=== PATIENT | male | born 1945 | race Caucasian/White ===

== ENCOUNTER 2016-04-16 09:29 | Outpatient (RCR) | payer MEDICARE ==
--- OUTSIDE RECORDS SUMMARY | 2016-01-23 09:44 | XMS REPORT | Continuity of Care Document ---
Author Author [facility] Organization [facility] Address Unknown Phone Unavailable Care Team Providers Care Fitting Room Checker Name Role Phone Davis Caldera PCP [phone] Source Comments Some departments are not documenting in the electronic medical record. If you do not see the information that you expected, contact Release of Information in the Health Information Management department at [phone] for further assistance in locating additional records.[facility] Active Allergies and Adverse Reactions Allergen Noted Date Severity Reactions Comments Formaldehyde 04/24/2014 RASH Current Medications Prescription Sig. Disp. Refills Start End Date Status Date insulin pump -ASPART- by SubQ Pump route as Active Patients Own directed. Novolog SubQ Insulin Pump settings:Timin7698-5408 : 0.6 units/hr 3091-7947: 0.4 units/ds7188-3491: 0.95 units/mo2551-0909: 0.9 units/qg4570-1353: 0.75 units/ni1988-6073: 0.6 units/hr predniSONE (DELTASONE) 5 Take 1 Tab by mouth 30 Tab 2 01/05/20 Active mg tablet daily. 15 magnesium oxide (MAG-OX) Take 400 mg by mouth Active 400 mg tablet daily. docusate (COLACE) 100 mg Take 100 mg by mouth Active capsule twice daily. aspirin EC 81 mg tablet Take 81 mg by mouth Active daily. oxyCODONE/acetaminophen Take 1-2 Tabs by mouth 40 Tab 0 07/25/19 Active (PERCOCET; ENDOCET; every 4 hours as needed 16 ROXICET) 5/325 mg tablet for Pain Earliest Fill Date: 07/25/15 polyethylene glycol 3350 Take 17 g by mouth twice 238 g 3 07/25/19 Active (MIRALAX) 17 gram/dose daily. 16 powder LISINOPRIL PO Take by mouth daily. Active METOPROLOL SUCCINATE PO Take by mouth daily. Active CEFDINIR PO Take by mouth twice Active daily. 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 H/O peripheral stem cell transplant ([facility]) 01/05/2015 Overview: Date of Transplant: 12/24/14 Preparative Regimen: BEAC Reduced or fully ablative: Full Disease: NHL Disease Status at Transplant: [place] Cytogenetic/FISH at DIAGNOSIS: 45,X,-Y[7]/46,XY[12] CMV: NEG Cell Source: PSC, autologous Consents/Studies: 8322, blood, apheresis, auto, H&P Coordinator: KIARRA SALMON RN Pancytopenia due to chemotherapy ([facility]) 12/31/[address] ([facility]) 12/19/2014 T1DM (type 1 diabetes mellitus) ([facility]) 05/03/2014 Rheumatoid arthritis ([facility]) 05/03/2014 Resolved Problems Problem Noted Date Resolved Date Nystagmus 12/30/2014 01/08/2015 Constipation 12/30/2014 01/08/2015 Mucositis due to antineoplastic therapy 12/30/2014 01/08/2015 Nausea 12/30/2014 01/08/2015 Fluid retention in tissues 12/23/2014 01/08/2015 Chemotherapy-induced nausea and vomiting 12/23/2014 01/08/2015 Conditioning chemotherapy prior to peripheral blood stem cell transplant 01/06/2015 Hypomagnesemia 12/18/2014 01/08/2015 Insect bite of foot or toe of right foot 11/14/2014 01/08/2015 Most Recent Encounters Date Type Specialty Providers Description 12/19/2015 Telephone Oncology Dory Dolan BMT Follow-up - 1 year Immunizations Name Dates Previously Given Next Due Acthib Vaccine 11/04/2015, 09/12/2015, 07/11/2015 HEPATITIS B vaccine, 09/12/2015 unspecified (Historical) Hepatitis B Vaccine Adult 07/11/2015 3 Dose IM IPV 11/04/2015, 09/12/2015, 07/11/2015 Meningococcal Conjug 07/11/2015 Vaccine Pneumococcal 11/04/2015, 09/12/2015, 07/11/2015 Vaccine([facility]/immunocompromised adult) Tdap Vaccine 11/04/2015, 09/12/2015, 07/11/2015 Social History Tobacco Use Types Packs/Day Years Used Date Former Smoker Cigarettes 0.75 25 Quit: 04/27/1999 Smokeless Tobacco: Never Used Comments: smoked for 25 years Alcohol Use Drinks/Week oz/Week Comments Yes 2-3 drinks per day Last Filed Vital Signs Vital Sign Reading Time Taken Blood Pressure 100/73 08/02/2015 10:49 AM CDT Pulse 77 08/02/2015 10:49 AM CDT Temperature 36.9 C (98.4 F) 08/02/2015 10:49 AM CDT Respiratory Rate 15 08/02/2015 10:49 AM CDT Height 1.753 m (5' 9.02") 08/02/2015 10:49 AM CDT Weight 74.481 kg (164 lb 3.2 oz) 08/02/2015 10:49 AM CDT Body Mass Index 24.24 08/02/2015 10:49 AM CDT Oxygen Saturation 100% 08/02/2015 10:49 AM CDT Plan of Care Date Type Specialty Providers Description 02/03/2016 Appointment Oncology Suraj Hendrickson MD [address] [place] [address] [phone] (Fax) 02/03/2016 Appointment Oncology Suraj Hendrickson MD [address] [place] [address] [phone] (Fax) Health Maintenance Due Date Last Done Comments Physical (Comprehensive) 1952 Exam Dilated Eye Exam 1964 Foot Exam 1964 Microalbumin 1964 Shingles Vaccine 2006 Hba1c 11/04/2014 05/07/2014 Influenza Vaccine 12/05/2015 Prevnar/Pneumovax (#2) 07/10/2016 11/04/2015, 09/12/2015, 07/11/2015 Colorectal Cancer 06/12/2025 06/13/2015 Screening Tetanus Vaccine 11/03/2025 11/04/2015, 09/12/2015, 07/11/2015 Hepatitis C Screening Completed 04/29/2014 Pertussis Vaccine Completed 11/04/2015, 09/12/2015, 07/11/2015 Results from Last 3 Months Not on file
[2016-01-23 10:10] LABS: PEP REPORT SEE PATH REPORT
[2016-01-23 10:12] LABS: BASOPHILS # (AUTO) 0.2 10^3/uL (0.0-0.1); BASOPHILS % (AUTO) 4 % (0-10); EOSINOPHILS # (AUTO) 0.2 10^3/uL (0.0-0.3); EOSINOPHILS % (AUTO) 4 % (0-10); LYMPHOCYTES % (AUTO) 18 % (12-44); MEAN CORPUSCULAR HEMOGLOBIN 27 PG (25-34); MEAN CORPUSCULAR HGB CONC 33 G/DL (32-36); MEAN CORPUSCULAR VOLUME 83 FL (80-99); MEAN PLATELET VOLUME 9.6 FL (7.4-10.4); MONOCYTES # (AUTO) 0.8 X 10^3 (0.0-1.0); MONOCYTES % (AUTO) 15 % (0-12); NEUTROPHILS # (AUTO) 3.3 X 10^3 (1.8-7.8); NEUTROPHILS % (AUTO) 59 % (42-75); PLATELET COUNT 233 10^3/uL (130-400); RED BLOOD COUNT 4.53 10^6/uL (4.35-5.85); RED CELL DISTRIBUTION WIDTH 17.1 % (10.0-14.5); WHITE BLOOD COUNT 5.6 10^3/uL (4.3-11.0)
[2016-01-23 10:38] LABS: ALANINE AMINOTRANSFERASE 19 U/L (0-55); ALBUMIN 3.4 G/DL (3.2-4.5); ANION GAP 7 MMOL/L (5-14); ASPARTATE AMINO TRANSFERASE 20 U/L (5-34); BILIRUBIN,TOTAL 0.7 MG/DL (0.1-1.0); BLOOD UREA NITROGEN 19 MG/DL (7-18); BUN/CREATININE RATIO 25; CALCIUM 8.6 MG/DL (8.5-10.1); CARBON DIOXIDE 23 MMOL/L (21-32); CHLORIDE 105 MMOL/L (98-107); CREATININE SERUM 0.77 MG/DL (0.60-1.30); GFR ESTIMATED > 60; GLUCOSE 245 MG/DL (70-105); LACTATE DEHYDROGENASE 191 U/L (125-220); MAGNESIUM 1.7 MG/DL (1.8-2.4); POTASSIUM 4.1 MMOL/L (3.6-5.0); SODIUM 135 MMOL/L (135-145); TOTAL PROTEIN 5.7 G/DL (6.4-8.2)
[2016-01-24 02:05] LABS: IMMUNOGLOBULIN IGA 217 mg/dL (71-263); IMMUNOGLOBULIN IGG 890 mg/dL (672-1680); LIGHT CHAIN KAPPA SERUM QUANT 18.05 mg/L (3.30-19.40); LIGHT CHAIN LAMBDA SERUM QUANT 18.44 mg/L (5.71-26.30)
[2016-01-24 07:03] LABS: IMMUNOGLOBULIN IGM 141 mg/dL (47-209)
[2016-01-28 09:42] LABS: CLIN PATHOLOGY REPORT FOOTNOTE; SERUM PROTEIN ELEC DETAIL L-16-0013403
[2016-02-05 07:03] LABS: ANATOMIC PATH ADDENDUM REPORT FOOTNOTE
[2016-03-19 10:15] LABS: BASOPHILS # (AUTO) 0.2 10^3/uL (0.0-0.1); BASOPHILS % (AUTO) 4 % (0-10); EOSINOPHILS # (AUTO) 0.1 10^3/uL (0.0-0.3); EOSINOPHILS % (AUTO) 2 % (0-10); LYMPHOCYTES % (AUTO) 21 % (12-44); MEAN CORPUSCULAR HEMOGLOBIN 27 PG (25-34); MEAN CORPUSCULAR HGB CONC 32 G/DL (32-36); MEAN CORPUSCULAR VOLUME 83 FL (80-99); MEAN PLATELET VOLUME 9.7 FL (7.4-10.4); MONOCYTES # (AUTO) 0.7 X 10^3 (0.0-1.0); MONOCYTES % (AUTO) 15 % (0-12); NEUTROPHILS # (AUTO) 2.7 X 10^3 (1.8-7.8); NEUTROPHILS % (AUTO) 58 % (42-75); PLATELET COUNT 264 10^3/uL (130-400); RED BLOOD COUNT 4.45 10^6/uL (4.35-5.85); RED CELL DISTRIBUTION WIDTH 17.8 % (10.0-14.5); WHITE BLOOD COUNT 4.6 10^3/uL (4.3-11.0)
[2016-03-19 11:34] LABS: ALANINE AMINOTRANSFERASE 15 U/L (0-55); ALBUMIN 3.4 G/DL (3.2-4.5); ANION GAP 4 MMOL/L (5-14); ASPARTATE AMINO TRANSFERASE 22 U/L (5-34); BILIRUBIN,TOTAL 0.7 MG/DL (0.1-1.0); BLOOD UREA NITROGEN 15 MG/DL (7-18); BUN/CREATININE RATIO 18; CALCIUM 8.5 MG/DL (8.5-10.1); CARBON DIOXIDE 25 MMOL/L (21-32); CHLORIDE 108 MMOL/L (98-107); CREATININE SERUM 0.82 MG/DL (0.60-1.30); GFR ESTIMATED > 60; GLUCOSE 152 MG/DL (70-105); LACTATE DEHYDROGENASE 260 U/L (125-220); MAGNESIUM 1.6 MG/DL (1.8-2.4); POTASSIUM 4.2 MMOL/L (3.6-5.0); SODIUM 137 MMOL/L (135-145); TOTAL PROTEIN 5.4 G/DL (6.4-8.2)
[~2016-04-16 09:29] MED LIST: ASPI-624 PO; ASPI-892 PO; CIPR500T78 PO; CODE118S2 PO; DIPH25TA82 PO; FLC1T PO; FOLI0.8T PO; HYDR-3714 PO; IMIP50TA4 PO; INSASP10V IV; INSULIN PUMP; LENA5CAP PO; LEVO500T69 PO; LOSA100T7 PO; MAGIC1 PO; MELA1TAB9 PO; MORP15TA8 PO; MTX2.5T PO; NITR-65 PO; NOVALOG; OXYC-471 PO; POLY119P GT; PRED5TAB PO; PROC10TA23 PO; SIMV20TA3 PO; SIMVASTATIN; TAMS0.4C9 PO; TMSL.4C PO; flomax; melatonin
== END 2016-04-22 | disposition home or self-care (01) ==
LOC: ONC 09:29
PROVIDERS: ATTEND Internal Medicine Hematology & Oncology
DX: C85.80 Other specified types of non-Hodgkin lymphoma, unspecified site (principal); E11.9 Type 2 diabetes mellitus without complications; I10 Essential (primary) hypertension; E78.5 Hyperlipidemia, unspecified; Z93.3 Colostomy status; Z79.899 Other long term (current) drug therapy; Z96.41 Presence of insulin pump (external) (internal); Z95.2 Presence of prosthetic heart valve
CPT/HCPCS: 36591; 80053; 82232; 82784; 83615; 83735; 83883; 84155; 84165; 85025; 86334; 86430; 96523; 99213

== ENCOUNTER 2016-06-06 02:46 | Emergency (ER) | payer MEDICARE ==
[~2016-06-06] VITALS: Ht 177.8 cm; Wt 76.2 kg
--- OUTSIDE RECORDS SUMMARY | 2016-06-06 02:55 | XMS REPORT | Continuity of Care Document ---
Author Author [facility] Organization [facility] Address Unknown Phone Unavailable Care Team Providers Care Contact Person Name Role Phone Davis Caldera PCP [phone] Source Comments Some departments are not documenting in the electronic medical record. If you do not see the information that you expected, contact Release of Information in the Health Information Management department at [phone] for further assistance in locating additional records.[facility] Active Allergies and Adverse Reactions Allergen Noted Date Severity Reactions Comments Formaldehyde 04/24/2014 RASH Current Medications Prescription Sig. Disp. Refills Start End Date Status Date insulin pump -ASPART- by SubQ Pump route as Active Patients Own directed. Novolog SubQ Insulin Pump settings:Timin9426-4084 : 0.6 units/hr 9641-0712: 0.4 units/wt1961-9391: 0.95 units/at0837-8812: 0.9 units/mb6940-1445: 0.75 units/zu0910-5707: 0.6 units/hr predniSONE (DELTASONE) 5 Take 1 [...] (HCC) 01/08/2015 H/O peripheral stem cell transplant ([facility]) 01/05/2015 Overview: Date of Transplant: 12/24/14 Preparative Regimen: BEAC Reduced or fully ablative: Full Disease: NHL Disease Status at Transplant: [place] Cytogenetic/FISH at DIAGNOSIS: 45,X,-Y[7]/46,XY[12] CMV: NEG Cell Source: PSC, autologous Consents/Studies: 8322, blood, apheresis, auto, H&P Coordinator: KIARRA SALMON RN Pancytopenia due to chemotherapy ([facility]) 12/31/[address] ([facility]) 12/19/2014 T1DM (type 1 diabetes mellitus) ([facility]) 05/03/2014 Rheumatoid arthritis ([facility]) 05/03/2014 Resolved Problems Problem Noted Date [...]
[2016-06-06 03:27] LABS: BASOPHILS # (AUTO) 0.1 10^3/uL (0.0-0.1); BASOPHILS % (AUTO) 3 % (0-10); EOSINOPHILS # (AUTO) 0.4 10^3/uL (0.0-0.3); EOSINOPHILS % (AUTO) 9 % (0-10); LYMPHOCYTES # (AUTO) 1.3 X 10^3 (1.0-4.0); LYMPHOCYTES % (AUTO) 25 % (12-44); MEAN CORPUSCULAR HEMOGLOBIN 27 PG (25-34); MEAN CORPUSCULAR HGB CONC 33 G/DL (32-36); MEAN CORPUSCULAR VOLUME 83 FL (80-99); MONOCYTES # (AUTO) 0.8 X 10^3 (0.0-1.0); MONOCYTES % (AUTO) 17 % (0-12); NEUTROPHILS # (AUTO) 2.3 X 10^3 (1.8-7.8); NEUTROPHILS % (AUTO) 47 % (42-75); PLATELET COUNT 228 10^3/uL (130-400); RED BLOOD COUNT 4.46 10^6/uL (4.35-5.85); RED CELL DISTRIBUTION WIDTH 16.6 % (10.0-14.5)
[2016-06-06 03:39] LABS: ALANINE AMINOTRANSFERASE 14 U/L (0-55); ALBUMIN 3.4 G/DL (3.2-4.5); ANION GAP 11 MMOL/L (5-14); ASPARTATE AMINO TRANSFERASE 13 U/L (5-34); BILIRUBIN,TOTAL 0.9 MG/DL (0.1-1.0); BLOOD UREA NITROGEN 19 MG/DL (7-18); BUN/CREATININE RATIO 23; CALCIUM 8.5 MG/DL (8.5-10.1); CARBON DIOXIDE 23 MMOL/L (21-32); CHLORIDE 109 MMOL/L (98-107); CREATININE SERUM 0.84 MG/DL (0.60-1.30); GFR ESTIMATED > 60; GLUCOSE 99 MG/DL (70-105); POTASSIUM 3.6 MMOL/L (3.6-5.0); SODIUM 143 MMOL/L (135-145); TOTAL PROTEIN 5.7 G/DL (6.4-8.2)
--- NOTE | 2016-06-06 04:01 | ED General ---
General Chief Complaint: Glucose Problems Stated Complaint: LOW BLOOD SUGAR Nursing Triage Note: Per [facility] EMS patient arrival for hypoglycemia. Pt registered low by EMS and at home; gave glucagon IM and EMS has given D50. Patient had altered mental status that has improved. Nursing Sepsis Screen: No Definite Risk Source of Information: Patient, EMS, Family Exam Limitations: No Limitations History of Present Illness Time Seen by Provider: 03:15 Initial Comments Here by EMS with report of blood sugar that was low. reports that it was 38 and she called EMS after given 1 mg of glucagon IM. EMS arrived and found his blood sugar to be low (below 20). They did initiate IV and gave 1 amp of D50. I also stopped his insulin pump. Patient awoke and was irritated but had no complaints. He was transported for further evaluation. Patient reports that he believes his insulin pump was having problems last night and his blood sugar was in the 400s. He did get a pulse of 11 units of insulin and then another bolus of 7 units of insulin and he believes that his pump wasn't working right after the set up and due to the boluses, had a low blood sugar event. States that everything is better now and feels, that is palpable work and that he can manage his blood sugars. His typical hemoglobin A1c is in the low 6 range and usually manages his blood sugars very well. Timing/Duration: 1 Hour Severity: Moderate Associated Systoms: No Chest Pain, No Cough, No Fever/Chills, No Nausea/ Vomiting, No Shortness of Air, No Weakness Allergies and Home Medications Allergies Coded Allergies: formaldehyde (Verified Allergy, Unknown, 12/20/07) Home Medications Aspirin 81 Mg Tabec 81 MG PO HS (Reported) Diphenhydramine Hcl 25 Mg Tablet 50 MG PO HS PRN PRN SLEEP (Reported) TAKES 2 (25MG) TABLETS Hydrocodone Bit/Acetaminophen 1 Tab Tablet #30 1-2 TAB PO Q4-6HRS MAY TAKE 1 OR 2 TABS BY MOUTH EVERY 4-6 HRS NEEDED FOR MILD TO MODERATE PAIN. DO NOT TAKE THIS MEDICATION IF YOU ARE TAKING YOUR MORPHINE. Prescribed by: HECTOR KUMARI on 06/18/14 2263 Insulin Aspart 10 Unit/0.1 Ml Susp IV PER INSULIN PUMP (Reported) Lenalidomide 5 Mg Capsule 5 MG PO ONCE (Reported) Melatonin/Pyridoxine Hcl 1 Each Tablet 2 EACH PO HS (Reported) Morphine Sulfate 15 Mg Tablet #60 30 MG PO Q4H PRN PRN SEVERE PAIN Prescribed by: MONICA ROJAS on 04/21/14 1325 Nitrofurantoin/Nitrofuran Mac 100 Mg Capsule #30 1 EACH PO BID FOR INFECTION Prescribed by: OLIVIA ROMANO on 06/13/14 1337 Nystatin/Lidocaine/Diphenhyd Bottle 5 ML PO 6XDAILY (Reported) 5 ML MAGIC MOUTHWASH CONTAINS: NYSTATIN SUSPENSION, PREDNISOLONE, DIPHENHYDRAMINE, LIDOCAINE VISCOUS Oxycodone HCl/Acetaminophen 1 Each Tablet #20 1-2 EACH PO Q6H PRN PRN PAIN Prescribed by: GLORIA CALERO on 10/27/15 0518 Prednisone 5 Mg Tablet 5 MG PO DAILY (Reported) Prochlorperazine 10 Mg Tablet #100 10 MG PO QID PRN PRN NAUSEA/VOMITING Prescribed by: MONICA ROJAS on 04/21/14 1325 Promethazine HCl/Codeine 118 Ml Syrup #118 5 ML PO Q6H PRN PRN COUGH Prescribed by: GLORIA CALERO on 10/27/15 0518 Tamsulosin HCl 0.4 Mg Cap.er.24h 0.4 MG PO DAILY (Reported) Constitutional: see HPI EENTM: no symptoms reported Respiratory: no symptoms reported Cardiovascular: no symptoms reported Gastrointestinal: no symptoms reported Genitourinary: no symptoms reported Musculoskeletal: no symptoms reported Skin: no symptoms reported Psychiatric/Neurological: See HPI Past Uargyln-Rmmmvo-Qainyn Hx Patient Social History Alcohol Use: Denies Use Recreational Drug Use: No Smoking Status: Unknown if Ever Smoked Recent Foreign Travel: No Contact w/Someone Who Travel: No Recent Infectious Disease Expo: No Recent Hopitalizations: No Immunizations Up To Date Date of Pneumonia Vaccine: Aug 02, 2011 Date of Influenza Vaccine: Feb 03, 2014 Seasonal Allergies Seasonal Allergies: No Surgeries HX Surgeries: Yes (hernia, previous colostomy.) Surgeries: Abdominal, Bowel Surgery, Orthopedic, Penile Implant, Transurethral Resection, Vascular Surgery Respiratory Hx Respiratory Disorders: No Cardiovascular Hx Cardiac Disorders: Yes (leaky heart valve- 45%.) Cardiac Disorders: Heart Murmur, Hypertension Neurological Hx Neurological Disorders: No Neurological Disorders: Neuropathy Reproductive System Hx Reproductive Disorders: No Sexually Transmitted Disease: No HIV/AIDS: No Genitourinary Hx Genitourinary Disorders: No Genitourinary Disorders: Benign Prostatic Hyperpl, Prostate Problems Gastrointestinal Hx Gastrointestinal Disorders: No Gastrointestinal Disorders: Abdominal Hernia, Obstructive Bowel, Chronic Constipation Musculoskeletal Hx Musculoskeletal Disorders: Yes Musculoskeletal Disorders: Rheumatoid Arthritis Endocrine Hx Endocrine Disorders: Yes Endocrine Disorders: Diabetes, Insulin dep HEENT HX ENT Disorders: No Cancer Hx Cancer: Yes Cancer: Lymphoma Psychosocial Hx Psychiatric Problems: No Integumentary HX Skin/Integumentary Disorder: No Blood Transfusions Hx Blood Disorders: No Adverse Reaction to a Blood Tr: No Reviewed Nursing Assessment Reviewed/Agree w Nursing PMH: Yes Family Medical History Family Medial History: Congestive heart failure 19 MOTHER Family history: Diabetes mellitus 19 MOTHER Physical Exam Vital Signs Vital Sign - Last 12Hours 06/06/16 02:46 Temp 96.0 Pulse 64 Resp 16 B/P 132/88 Pulse Ox 99 O2 Delivery Room Air Capillary Refill : Less Than 3 Seconds General Appearance: No Apparent Distress WD/WN HEENT: PERRL/EOMI Pharynx Normal Neck: Non Tender Supple Respiratory: Lungs Clear Normal Breath Sounds Cardiovascular: Regular Rate, Rhythm No Murmur Gastrointestinal: Non Tender Soft Back: Normal Inspection No CVA Tenderness No Vertebral Tenderness Extremity: Non Tender No Calf Tenderness Neurologic/Psychiatric: Alert Oriented x3 Skin: Normal Color Warm/Dry Progress/Results/Core Measures Results/Orders Lab Results Laboratory Tests Test 06/06/16 03:05 06/06/16 03:10 Range/Units Alanine Aminotransferase (ALT/SGPT) 14 0-55 U/L Albumin 3.4 3.2-4.5 G/DL Alkaline Phosphatase 82 40-136 U/L Anion Gap 11 5-14 MMOL/L Aspartate Amino Transf (AST/SGOT) 13 5-34 U/L BUN/Creatinine Ratio 23 Basophils # (Auto) 0.1 0.0-0.1 10^3/uL Basophils (%) (Auto) 3 0-10 % Blood Urea Nitrogen 19 H 7-18 MG/DL Calcium Level 8.5 8.5-10.1 MG/DL Carbon Dioxide Level 23 21-32 MMOL/L Chloride Level 109 H 98-107 MMOL/L Creatinine 0.84 0.60-1.30 MG/DL Eosinophils # (Auto) 0.4 H 0.0-0.3 10^3/uL Eosinophils (%) (Auto) 9 0-10 % Estimat Glomerular Filtration Rate > 60 Glucose Level 99 70-105 MG/DL Hematocrit 37 L 40-54 % Hemoglobin 12.1 L 13.3-17.7 G/DL Lymphocytes # (Auto) 1.3 1.0-4.0 X 10^3 Lymphocytes (%) (Auto) 25 12-44 % Mean Corpuscular Hemoglobin 27 25-34 PG Mean Corpuscular Hemoglobin Concent 33 32-36 G/DL Mean Corpuscular Volume 83 80-99 FL Mean Platelet Volume 10.0 7.4-10.4 FL Monocytes # (Auto) 0.8 0.0-1.0 X 10^3 Monocytes (%) (Auto) 17 H 0-12 % Neutrophils # (Auto) 2.3 1.8-7.8 X 10^3 Neutrophils (%) (Auto) 47 42-75 % Platelet Count 228 130-400 10^3/uL Potassium Level 3.6 3.6-5.0 MMOL/L Red Blood Count 4.46 4.35-5.85 10^6/uL Red Cell Distribution Width 16.6 H 10.0-14.5 % Sodium Level 143 135-145 MMOL/L Total Bilirubin 0.9 0.1-1.0 MG/DL Total Protein 5.7 L 6.4-8.2 G/DL White Blood Count 5.0 4.3-11.0 10^3/uL Glucometer 85 70-110 MG/DL My Orders Orders-GLORIA CALERO MD Cbc With Automated Diff (06/06/16 03:18) Comprehensive Metabolic Panel (06/06/16 03:18) Vital Signs/I&O Vital Sign - Last 12Hours 06/06/16 02:46 Temp 96.0 Pulse 64 Resp 16 B/P 132/88 Pulse Ox 99 O2 Delivery Room Air Blood Pressure Mean: 103 Progress Note : Progress Note Seen and evaluated. IV by EMS. Labs ordered. Meal given and patient tolerated A meal without difficulty. He states he is concerned that his blood sugar will not be high and feels, that he can go home and reset his insulin pump. 0355: Patient mentating well and feels comfortable going home. Discharged home with return precautions. Patient verbalize understanding instructions and agreement with plan. Departure Impression Impression: Primary Impression: Hypoglycemia associated with diabetes Disposition: HOME, SELF-CARE Condition: Improved Departure-Patient Inst. Decision time for Depature: 04:00 Referrals: KARLA WESTBROOK DO (PCP/Family) Primary Care Physician Patient Instructions: HYPOGLYCEMIA Add. Discharge Instructions: All discharge instructions reviewed with patient and/or family. Voiced understanding. Continue insulin management as prescribed. Follow-up with your doctor on Wednesday as scheduled. Return for worsening, fever, vomiting, weakness, breathing problems or other concerns as needed. Carefully monitor your blood sugars. GLORIA CALERO MD Jun 06, 2016 04:01
[2016-06-06 04:20] VITALS: BP 140/89
== END 2016-06-06 04:20 | disposition home or self-care (01) ==
LOC: EDUNIT# 02:49 → ER 02:51
DX: E11.649 Type 2 diabetes mellitus with hypoglycemia without coma (principal); I10 Essential (primary) hypertension; Z79.82 Long term (current) use of aspirin; Z96.41 Presence of insulin pump (external) (internal)
CPT/HCPCS: 36415; 80053; 82962; 85025; 99283

== ENCOUNTER → 2016-06-18 | Outpatient (CLI) | payer MEDICARE ==
--- OUTSIDE RECORDS SUMMARY | 2016-06-18 10:15 | XMS REPORT | Continuity of Care Document ---
Author Author [facility] Organization [facility] Address Unknown Phone Unavailable Care Team Providers Care Publicity Consultant Name Role Phone Davis Caldera PCP [phone] Source Comments Some departments are not documenting in the electronic medical record. If you do not see the information that you expected, contact Release of Information in the Health Information Management department at [phone] for further assistance in locating additional records.[facility] Active Allergies and Adverse Reactions Allergen Noted Date Severity Reactions Comments Formaldehyde 04/24/2014 RASH Current Medications Prescription Sig. Disp. Refills Start End Date Status Date insulin pump -ASPART- by SubQ Pump route as Active Patients Own directed. Novolog SubQ Insulin Pump settings:Timin8787-9339 : 0.6 units/hr 6549-6606: 0.4 units/gt3939-2186: 0.95 units/oh7039-9694: 0.9 units/zn3059-8110: 0.75 units/kq7781-5805: 0.6 units/hr predniSONE (DELTASONE) 5 Take 1 [...] (HCC) 01/08/2015 H/O peripheral stem cell transplant ([facility]) 01/05/2015 Overview: Date of Transplant: 12/24/14 Preparative Regimen: BEAC Reduced or fully ablative: Full Disease: NHL Disease Status at Transplant: [place] Cytogenetic/FISH at DIAGNOSIS: 45,X,-Y[7]/46,XY[12] CMV: NEG Cell Source: PSC, autologous Consents/Studies: 8322, blood, apheresis, auto, H&P Coordinator: KIARRA SALMON RN Pancytopenia due to chemotherapy ([facility]) 12/31/[address] ([facility]) 12/19/2014 T1DM (type 1 diabetes mellitus) ([facility]) 05/03/2014 Rheumatoid arthritis ([facility]) 05/03/2014 Resolved Problems Problem Noted Date [...] Recent Encounters Date Type Specialty Providers Description 06/15/2016 Documentation Oncology Apoorva Silva 03/31/2016 Documentation Oncology Apoorva Silva Immunizations Name [...]
== END ==
LOC: LAB 10:12
PROVIDERS: ATTEND Specialist
DX: R31.21 Asymptomatic microscopic hematuria (principal); Z12.5 Encounter for screening for malignant neoplasm of prostate
CPT/HCPCS: 84153

== ENCOUNTER → 2016-07-27 | Outpatient (CLI) | payer MEDICARE ==
[~2016-07-27] MED LIST changes: +BARIUM SUSPENSION 2.1% (VANILLA SILQ) 450 ML PO ONE; +CATHETER FLUSH 10 ML SYR IV PRN; +IOHEXOL 350 MG/ML 100 ML (OMNIPAQUE 350) VIAL IV ONE; +NS 100 ML (IVPB) BAG IV ONE
--- NOTE | 2016-07-27 11:20 | Diagnostic Imaging Report ---
PROCEDURE: CT chest with contrast, CT abdomen and pelvis with and without contrast. TECHNIQUE: Pre and post intravenous contrast axial imaging of the abdomen and pelvis and post contrast axial imaging of the chest were performed. INDICATION: Lymphoma. 100 mL of Omnipaque 350 is administered intravenously. COMPARISON: PET/CT of 01/21/2016. FINDINGS: CT CHEST: The lungs demonstrate no significant consolidation, mass or suspicious nodule. There is a fat-containing diaphragmatic hernia in the posterior lateral aspect of the left hemidiaphragm. The heart size is normal. The thoracic aorta is normal in caliber. There is no mediastinal mass. A stable right paratracheal borderline sized 1 cm lymph node is seen similar to the prior exam, nonspecific. Calcified granuloma in the right hilum is seen. No significantly enlarged hilar or axillary lymphadenopathy is noted. There is suggestion of gynecomastia more prominent to the right side. The osseous structures demonstrate no destructive mass. There is suggestion of compression fractures in the upper and midthoracic spine levels of indeterminate age. If the patient has pain or recent trauma history, then MRI thoracic spine evaluation would be recommended. CT ABDOMEN AND PELVIS: Unenhanced phase in the abdomen demonstrates no kidney stones. The kidneys have symmetric enhancement and contrast excretion. There is no hydronephrosis. The liver, the gallbladder, the spleen, the pancreas, and the adrenal glands appear unremarkable. The abdominal aorta is normal in caliber. No paraaortic significantly enlarged lymph node is seen. There is no significant free fluid or fluid collection in the abdomen or pelvis. There is a penile prosthesis seen. There is nonspecific mild thickening of the ascending colon in a nonfocal fashion may relate to inflammatory or infectious etiology. No pericolonic inflammatory changes seen. There is a small fluid collection with thickened enhancing margins around it in the anterior abdominal wall measuring 3.5 x 1.8 x 2.7 cm may relate to a postoperative seroma related to interval ventral hernia repair. If the patient is tender and there is evidence of infection, then this could be an abscess. Lower lumbar spine degenerative changes are seen. IMPRESSION: CT CHEST: 1. Stable borderline sized right paratracheal lymph node seen of uncertain significance. No interval lymph node enlargement or development of a lung mass seen. 2. Compression fractures of upper and midthoracic spine levels are seen, of indeterminate age. If the patient has pain in corresponding area or a recent injury, then further evaluation with MRI of the thoracic spine would be helpful. CT ABDOMEN AND PELVIS: 1. No soft tissue mass or lymphadenopathy in the abdomen or pelvis. 2. Mild thickening in the ascending colon wall may relate to infectious or inflammatory colitis. Correlate clinically. 3. There is interval ventral hernia repair with abdominal wall fluid collection measuring 3.5 cm in size, may relate to a seroma. Superimposed infection cannot be entirely excluded. Dictated by: Dictated on workstation # [id number]
== END ==
LOC: RAD 09:44
PROVIDERS: ATTEND Internal Medicine Hematology & Oncology
DX: C83.33 Diffuse large B-cell lymphoma, intra-abdominal lymph nodes (principal)
CPT/HCPCS: 71260; 74178

== ENCOUNTER 2016-08-04 10:48 | Outpatient (RCR) | payer MEDICARE ==
--- OUTSIDE RECORDS SUMMARY | 2016-05-21 08:59 | XMS REPORT | Continuity of Care Document ---
Author Author [facility] Organization [facility] Address Unknown Phone Unavailable Care Team Providers Care Consulting It Architect Name Role Phone Davis Caldera PCP [phone] Source Comments Some departments are not documenting in the electronic medical record. If you do not see the information that you expected, contact Release of Information in the Health Information Management department at [phone] for further assistance in locating additional records.[facility] Active Allergies and Adverse Reactions Allergen Noted Date Severity Reactions Comments Formaldehyde 04/24/2014 RASH Current Medications Prescription Sig. Disp. Refills Start End Date Status Date insulin pump -ASPART- by SubQ Pump route as Active Patients Own directed. Novolog SubQ Insulin Pump settings:Timin1058-3264 : 0.6 units/hr 5034-8807: 0.4 units/em1096-5795: 0.95 units/ch8066-3390: 0.9 units/rx5819-4546: 0.75 units/dm7976-4139: 0.6 units/hr predniSONE (DELTASONE) 5 Take 1 [...] Active (MIRALAX) 17 gram/dose daily. 16 powder lenalidomide (REVLIMID) Take 10 mg by mouth Active 10 mg capsule daily. Take at the same time every day. ALPRAZolam (XANAX) 1 mg Take 1 mg by mouth at Active tablet bedtime as needed for Anxiety. metoprolol XL (TOPROL XL) Take 25 mg by mouth Active 25 mg extended release daily. 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 H/O peripheral stem cell transplant ([facility]) 01/05/2015 Overview: Date of Transplant: 12/24/14 Preparative Regimen: BEAC Reduced or fully ablative: Full Disease: NHL Disease Status at Transplant: [place] Cytogenetic/FISH at DIAGNOSIS: 45,X,-Y[7]/46,XY[12] CMV: NEG Cell Source: PSC, autologous Consents/Studies: 8322, blood, apheresis, auto, H&P Coordinator: KIARRA SALMON RN Pancytopenia due to chemotherapy ([facility]) 12/31/[address] ([facility]) 12/19/2014 T1DM (type 1 diabetes mellitus) ([facility]) 05/03/2014 Rheumatoid arthritis ([facility]) 05/03/2014 Resolved Problems Problem Noted Date Resolved [...] Recent Encounters Date Type Specialty Providers Description 03/31/2016 Documentation Oncology Apoorva Silva Immunizations Name Dates Previously Given Next Due Acthib Vaccine 11/04/2015, 09/12/2015, 07/11/2015 Flu Vaccine Trivalent >64 01/29/2016 Yo High-dose (Preservative Free) HEPATITIS B vaccine, 09/12/2015 unspecified (Historical) Hepatitis B Vaccine Adult 02/03/2016, 07/11/2015 3 Dose IM IPV 11/04/2015, 09/12/2015, 07/11/2015 Meningococcal Conjug 07/11/2015 Vaccine Pneumococcal 01/29/2016, 11/04/2015, 09/12/2015, 07/11/2015 Vaccine([facility]/immunocompromised adult) Tdap Vaccine 11/04/2015, 09/12/2015, 07/11/2015 Social History Tobacco Use Types Packs/Day Years Used Date Former Smoker Cigarettes 0.75 25 Quit: 04/27/1999 Smokeless Tobacco: Never Used Comments: smoked for 25 years Alcohol Use Drinks/Week oz/Week Comments Yes 2-3 drinks per day Last Filed Vital Signs Vital Sign Reading Time Taken Blood Pressure 135/87 02/03/2016 10:29 AM CDT Pulse 60 02/03/2016 10:29 AM CDT Temperature 36.7 C (98 F) 02/03/2016 10:29 AM CDT Respiratory Rate 16 02/03/2016 10:29 AM CDT Height 1.753 m (5' 9.02") 02/03/2016 10:29 AM CDT Weight 76.3 kg (168 lb 3.4 oz) 02/03/2016 10:29 AM CDT Body Mass Index 24.83 02/03/2016 10:29 AM CDT Oxygen Saturation 100% 02/03/2016 10:29 AM CDT Plan of Care Health Maintenance Due Date Last Done Comments Physical (Comprehensive) 1952 Exam Dilated Eye Exam 1964 Foot Exam 1964 Microalbumin 1964 Shingles Vaccine 2006 Hba1c 11/04/2014 05/07/2014 Prevnar/Pneumovax (#2) 07/10/2016 01/29/2016, 11/04/2015, 09/12/2015 Additional history exists Influenza Vaccine 12/04/2016 01/29/2016 Colorectal Cancer 06/12/2025 06/13/2015 Screening Tetanus Vaccine 11/03/2025 11/04/2015, 09/12/2015, 07/11/2015 Hepatitis C Screening Completed 04/29/2014 Pertussis Vaccine Completed 11/04/2015, 09/12/2015, 07/11/2015 Results from Last 3 Months Not on file
[2016-05-21 09:17] LABS: BASOPHILS # (AUTO) 0.2 10^3/uL (0.0-0.1); BASOPHILS % (AUTO) 4 % (0-10); EOSINOPHILS # (AUTO) 0.4 10^3/uL (0.0-0.3); EOSINOPHILS % (AUTO) 8 % (0-10); LYMPHOCYTES # (AUTO) 1.1 X 10^3 (1.0-4.0); LYMPHOCYTES % (AUTO) 24 % (12-44); MEAN CORPUSCULAR HEMOGLOBIN 27 PG (25-34); MEAN CORPUSCULAR HGB CONC 32 G/DL (32-36); MEAN CORPUSCULAR VOLUME 84 FL (80-99); MEAN PLATELET VOLUME 9.9 FL (7.4-10.4); MONOCYTES # (AUTO) 0.5 X 10^3 (0.0-1.0); MONOCYTES % (AUTO) 12 % (0-12); NEUTROPHILS # (AUTO) 2.4 X 10^3 (1.8-7.8); NEUTROPHILS % (AUTO) 52 % (42-75); PLATELET COUNT 213 10^3/uL (130-400); RED CELL DISTRIBUTION WIDTH 16.9 % (10.0-14.5); WHITE BLOOD COUNT 4.6 10^3/uL (4.3-11.0)
[2016-05-21 09:32] LABS: PEP REPORT SEE PATH REPORT
[2016-05-21 10:00] LABS: ALANINE AMINOTRANSFERASE 13 U/L (0-55); ALBUMIN 3.3 G/DL (3.2-4.5); ANION GAP 8 MMOL/L (5-14); ASPARTATE AMINO TRANSFERASE 18 U/L (5-34); BILIRUBIN,TOTAL 0.8 MG/DL (0.1-1.0); BLOOD UREA NITROGEN 15 MG/DL (7-18); BUN/CREATININE RATIO 19; CALCIUM 8.5 MG/DL (8.5-10.1); CARBON DIOXIDE 23 MMOL/L (21-32); CHLORIDE 108 MMOL/L (98-107); CREATININE SERUM 0.77 MG/DL (0.60-1.30); GFR ESTIMATED > 60; GLUCOSE 196 MG/DL (70-105); LACTATE DEHYDROGENASE 164 U/L (125-220); MAGNESIUM 1.7 MG/DL (1.8-2.4); POTASSIUM 4.1 MMOL/L (3.6-5.0); SODIUM 139 MMOL/L (135-145); TOTAL PROTEIN 5.6 G/DL (6.4-8.2)
[2016-05-22 03:44] LABS: IMMUNOGLOBULIN IGA 215 mg/dL (71-263); IMMUNOGLOBULIN IGG 720 mg/dL (672-1680)
[2016-05-22 07:11] LABS: IMMUNOGLOBULIN IGM 113 mg/dL (47-209)
[2016-05-22 08:33] LABS: LIGHT CHAIN KAPPA SERUM QUANT 19.18 mg/L (3.30-19.40); LIGHT CHAIN LAMBDA SERUM QUANT 18.27 mg/L (5.71-26.30)
[2016-05-26 07:45] LABS: CLIN PATHOLOGY REPORT FOOTNOTE; SERUM PROTEIN ELEC DETAIL L-17-0002222
[2016-07-16 13:13] LABS: BASOPHILS # (AUTO) 0.1 10^3/uL (0.0-0.1); BASOPHILS % (AUTO) 3 % (0-10); EOSINOPHILS # (AUTO) 0.1 10^3/uL (0.0-0.3); EOSINOPHILS % (AUTO) 3 % (0-10); LYMPHOCYTES # (AUTO) 0.9 X 10^3 (1.0-4.0); LYMPHOCYTES % (AUTO) 22 % (12-44); MEAN CORPUSCULAR HEMOGLOBIN 26 PG (25-34); MEAN CORPUSCULAR HGB CONC 32 G/DL (32-36); MEAN CORPUSCULAR VOLUME 82 FL (80-99); MEAN PLATELET VOLUME 9.9 FL (7.4-10.4); MONOCYTES # (AUTO) 0.5 X 10^3 (0.0-1.0); MONOCYTES % (AUTO) 12 % (0-12); NEUTROPHILS # (AUTO) 2.5 X 10^3 (1.8-7.8); NEUTROPHILS % (AUTO) 60 % (42-75); PLATELET COUNT 219 10^3/uL (130-400); RED BLOOD COUNT 4.41 10^6/uL (4.35-5.85); RED CELL DISTRIBUTION WIDTH 17.7 % (10.0-14.5); WHITE BLOOD COUNT 4.1 10^3/uL (4.3-11.0)
[2016-07-16 13:32] LABS: PEP REPORT SEE PATH REPORT
[2016-07-16 13:59] LABS: ALANINE AMINOTRANSFERASE 14 U/L (0-55); ALBUMIN 3.3 G/DL (3.2-4.5); ANION GAP 7 MMOL/L (5-14); ASPARTATE AMINO TRANSFERASE 18 U/L (5-34); BILIRUBIN,TOTAL 0.7 MG/DL (0.1-1.0); BLOOD UREA NITROGEN 16 MG/DL (7-18); BUN/CREATININE RATIO 20; CALCIUM 8.3 MG/DL (8.5-10.1); CARBON DIOXIDE 24 MMOL/L (21-32); CHLORIDE 108 MMOL/L (98-107); CREATININE SERUM 0.82 MG/DL (0.60-1.30); GFR ESTIMATED > 60; GLUCOSE 147 MG/DL (70-105); LACTATE DEHYDROGENASE 177 U/L (125-220); POTASSIUM 4.2 MMOL/L (3.6-5.0); SODIUM 139 MMOL/L (135-145); TOTAL PROTEIN 5.6 G/DL (6.4-8.2)
[2016-07-17 04:10] LABS: IMMUNOGLOBULIN IGA 226 mg/dL (71-263); IMMUNOGLOBULIN IGG 731 mg/dL (672-1680); LIGHT CHAIN KAPPA SERUM QUANT 18.66 mg/L (3.30-19.40); LIGHT CHAIN LAMBDA SERUM QUANT 18.45 mg/L (5.71-26.30)
[2016-07-17 07:58] LABS: IMMUNOGLOBULIN IGM 109 mg/dL (47-209)
[2016-07-20 17:08] LABS: CLIN PATHOLOGY REPORT FOOTNOTE; SERUM PROTEIN ELEC DETAIL L-17-0004959
[~2016-08-04 10:48] MED LIST changes: -BARIUM SUSPENSION 2.1% (VANILLA SILQ) 450 ML PO ONE; -CATHETER FLUSH 10 ML SYR IV PRN; -IOHEXOL 350 MG/ML 100 ML (OMNIPAQUE 350) VIAL IV ONE; -NS 100 ML (IVPB) BAG IV ONE
[2016-08-04 11:12] LABS: BASOPHILS # (AUTO) 0.1 10^3/uL (0.0-0.1); BASOPHILS % (AUTO) 2 % (0-10); EOSINOPHILS # (AUTO) 0.2 10^3/uL (0.0-0.3); EOSINOPHILS % (AUTO) 3 % (0-10); LYMPHOCYTES % (AUTO) 16 % (12-44); MEAN CORPUSCULAR HEMOGLOBIN 26 PG (25-34); MEAN CORPUSCULAR HGB CONC 32 G/DL (32-36); MEAN CORPUSCULAR VOLUME 80 FL (80-99); MEAN PLATELET VOLUME 9.7 FL (7.4-10.4); MONOCYTES # (AUTO) 0.7 X 10^3 (0.0-1.0); MONOCYTES % (AUTO) 12 % (0-12); NEUTROPHILS % (AUTO) 67 % (42-75); PLATELET COUNT 251 10^3/uL (130-400); RED BLOOD COUNT 4.67 10^6/uL (4.35-5.85); RED CELL DISTRIBUTION WIDTH 17.9 % (10.0-14.5)
[2016-08-04 11:38] LABS: ALANINE AMINOTRANSFERASE 17 U/L (0-55); ALBUMIN 3.4 G/DL (3.2-4.5); ANION GAP 6 MMOL/L (5-14); ASPARTATE AMINO TRANSFERASE 17 U/L (5-34); BILIRUBIN,TOTAL 0.8 MG/DL (0.1-1.0); BLOOD UREA NITROGEN 18 MG/DL (7-18); BUN/CREATININE RATIO 23; CALCIUM 8.7 MG/DL (8.5-10.1); CARBON DIOXIDE 25 MMOL/L (21-32); CHLORIDE 106 MMOL/L (98-107); GFR ESTIMATED > 60; GLUCOSE 196 MG/DL (70-105); POTASSIUM 4.4 MMOL/L (3.6-5.0); SODIUM 137 MMOL/L (135-145); TOTAL PROTEIN 5.8 G/DL (6.4-8.2)
== END 2016-08-19 | disposition home or self-care (01) ==
LOC: ONC 10:48
PROVIDERS: ATTEND Internal Medicine Hematology & Oncology
DX: C85.80 Other specified types of non-Hodgkin lymphoma, unspecified site (principal); E11.9 Type 2 diabetes mellitus without complications; I10 Essential (primary) hypertension; E78.5 Hyperlipidemia, unspecified; Z93.3 Colostomy status; Z79.899 Other long term (current) drug therapy; Z96.41 Presence of insulin pump (external) (internal)
CPT/HCPCS: 36591; 80053; 82232; 82784; 83615; 83735; 83883; 84155; 84165; 85025; 99213

== ENCOUNTER 2016-10-28 13:01 | Outpatient (RCR) | payer MEDICARE ==
[2016-09-01 08:59] LABS: BASOPHILS # (AUTO) 0.1 10^3/uL (0.0-0.1); BASOPHILS % (AUTO) 3 % (0-10); EOSINOPHILS # (AUTO) 0.3 10^3/uL (0.0-0.3); EOSINOPHILS % (AUTO) 6 % (0-10); LYMPHOCYTES # (AUTO) 1.5 X 10^3 (1.0-4.0); LYMPHOCYTES % (AUTO) 29 % (12-44); MEAN CORPUSCULAR HEMOGLOBIN 26 PG (25-34); MEAN CORPUSCULAR HGB CONC 33 G/DL (32-36); MEAN CORPUSCULAR VOLUME 79 FL (80-99); MEAN PLATELET VOLUME 9.1 FL (7.4-10.4); MONOCYTES # (AUTO) 0.7 X 10^3 (0.0-1.0); MONOCYTES % (AUTO) 14 % (0-12); NEUTROPHILS # (AUTO) 2.4 X 10^3 (1.8-7.8); NEUTROPHILS % (AUTO) 47 % (42-75); PLATELET COUNT 213 10^3/uL (130-400); RED CELL DISTRIBUTION WIDTH 18.2 % (10.0-14.5); WHITE BLOOD COUNT 5.1 10^3/uL (4.3-11.0)
[2016-09-01 09:31] LABS: ALANINE AMINOTRANSFERASE 15 U/L (0-55); ALBUMIN 3.3 G/DL (3.2-4.5); ANION GAP 8 MMOL/L (5-14); ASPARTATE AMINO TRANSFERASE 14 U/L (5-34); BILIRUBIN,TOTAL 0.9 MG/DL (0.1-1.0); BLOOD UREA NITROGEN 18 MG/DL (7-18); BUN/CREATININE RATIO 21; CALCIUM 8.8 MG/DL (8.5-10.1); CARBON DIOXIDE 23 MMOL/L (21-32); CHLORIDE 108 MMOL/L (98-107); CREATININE SERUM 0.85 MG/DL (0.60-1.30); GFR ESTIMATED > 60; GLUCOSE 170 MG/DL (70-105); SODIUM 139 MMOL/L (135-145); TOTAL PROTEIN 5.8 G/DL (6.4-8.2)
[2016-09-29 09:29] LABS: BASOPHILS # (AUTO) 0.1 10^3/uL (0.0-0.1); BASOPHILS % (AUTO) 3 % (0-10); EOSINOPHILS # (AUTO) 0.3 10^3/uL (0.0-0.3); EOSINOPHILS % (AUTO) 7 % (0-10); LYMPHOCYTES # (AUTO) 0.9 X 10^3 (1.0-4.0); LYMPHOCYTES % (AUTO) 22 % (12-44); MEAN CORPUSCULAR HEMOGLOBIN 26 PG (25-34); MEAN CORPUSCULAR HGB CONC 32 G/DL (32-36); MEAN CORPUSCULAR VOLUME 82 FL (80-99); MEAN PLATELET VOLUME 9.5 FL (7.4-10.4); MONOCYTES # (AUTO) 0.7 X 10^3 (0.0-1.0); MONOCYTES % (AUTO) 16 % (0-12); NEUTROPHILS # (AUTO) 2.3 X 10^3 (1.8-7.8); NEUTROPHILS % (AUTO) 54 % (42-75); PLATELET COUNT 208 10^3/uL (130-400); RED CELL DISTRIBUTION WIDTH 19.9 % (10.0-14.5); WHITE BLOOD COUNT 4.3 10^3/uL (4.3-11.0)
[2016-09-29 10:10] LABS: ALANINE AMINOTRANSFERASE 20 U/L (0-55); ALBUMIN 3.2 GM/DL (3.2-4.5); ANION GAP 7 MMOL/L (5-14); ASPARTATE AMINO TRANSFERASE 21 U/L (5-34); BILIRUBIN,TOTAL 0.8 MG/DL (0.1-1.0); BLOOD UREA NITROGEN 18 MG/DL (7-18); BUN/CREATININE RATIO 23 (0-20); CALCIUM 8.2 MG/DL (8.5-10.1); CARBON DIOXIDE 23 MMOL/L (21-32); CHLORIDE 106 MMOL/L (98-107); CREATININE SERUM 0.79 MG/DL (0.60-1.30); GFR ESTIMATED > 60; GLUCOSE 275 MG/DL (70-105); HEMOLYSIS 17 (-100-29); LIPEMIA 3 (-100-49); POTASSIUM 4.4 MMOL/L (3.6-5.0); SODIUM 136 MMOL/L (135-145); TOTAL PROTEIN 5.3 GM/DL (6.4-8.2)
[2016-10-28 13:19] LABS: BASOPHILS # (AUTO) 0.1 10^3/uL (0.0-0.1); BASOPHILS % (AUTO) 2 % (0-10); EOSINOPHILS # (AUTO) 0.4 10^3/uL (0.0-0.3); EOSINOPHILS % (AUTO) 8 % (0-10); LYMPHOCYTES # (AUTO) 0.8 X 10^3 (1.0-4.0); LYMPHOCYTES % (AUTO) 17 % (12-44); MEAN CORPUSCULAR HGB CONC 32 G/DL (32-36); MEAN CORPUSCULAR VOLUME 84 FL (80-99); MONOCYTES # (AUTO) 0.6 X 10^3 (0.0-1.0); MONOCYTES % (AUTO) 13 % (0-12); NEUTROPHILS # (AUTO) 2.8 X 10^3 (1.8-7.8); NEUTROPHILS % (AUTO) 60 % (42-75); PLATELET COUNT 211 10^3/uL (130-400); RED BLOOD COUNT 4.68 10^6/uL (4.35-5.85); RED CELL DISTRIBUTION WIDTH 20.1 % (10.0-14.5); WHITE BLOOD COUNT 4.7 10^3/uL (4.3-11.0)
[2016-10-28 13:20] LABS: MEAN CORPUSCULAR HEMOGLOBIN 26 PG (25-34)
[2016-10-28 13:25] LABS: PEP REPORT SEE PATH REPORT
[2016-10-28 13:47] LABS: ALANINE AMINOTRANSFERASE 23 U/L (0-55); ALBUMIN 3.3 GM/DL (3.2-4.5); ANION GAP 3 MMOL/L (5-14); ASPARTATE AMINO TRANSFERASE 20 U/L (5-34); BILIRUBIN,TOTAL 0.8 MG/DL (0.1-1.0); BLOOD UREA NITROGEN 19 MG/DL (7-18); BUN/CREATININE RATIO 25; CALCIUM 8.7 MG/DL (8.5-10.1); CARBON DIOXIDE 27 MMOL/L (21-32); CHLORIDE 109 MMOL/L (98-107); CREATININE SERUM 0.77 MG/DL (0.60-1.30); GFR ESTIMATED > 60; GLUCOSE 146 MG/DL (70-105); POTASSIUM 4.4 MMOL/L (3.6-5.0); SODIUM 139 MMOL/L (135-145); TOTAL PROTEIN 5.4 GM/DL (6.4-8.2)
[2016-10-29 02:51] LABS: IMMUNOGLOBULIN IGA 233 mg/dL (71-263); IMMUNOGLOBULIN IGG 724 mg/dL (672-1680); LIGHT CHAIN KAPPA SERUM QUANT 22.71 mg/L (3.30-19.40); LIGHT CHAIN LAMBDA SERUM QUANT 21.59 mg/L (5.71-26.30)
[2016-10-29 07:22] LABS: IMMUNOGLOBULIN IGM 124 mg/dL (47-209)
[2016-11-09 09:54] LABS: CLIN PATHOLOGY REPORT FOOTNOTE; SERUM PROTEIN ELEC DETAIL L-17-0009792
== END 2016-11-30 | disposition home or self-care (01) ==
LOC: ONC 13:01
PROVIDERS: ATTEND Internal Medicine Hematology & Oncology
DX: C85.80 Other specified types of non-Hodgkin lymphoma, unspecified site (principal); E11.9 Type 2 diabetes mellitus without complications; I10 Essential (primary) hypertension; E78.5 Hyperlipidemia, unspecified; Z93.3 Colostomy status; Z79.899 Other long term (current) drug therapy; Z96.41 Presence of insulin pump (external) (internal)
CPT/HCPCS: 36591; 80053; 82232; 82784; 83883; 84155; 84165; 85025

== ENCOUNTER → 2017-07-14 | Outpatient (CLI) | payer MEDICARE ==
[~2017-07-14] MED LIST changes: +ASPI-983 PO; +HYDR25TA4 PO; +INSU100V16; +LENA10CA PO; +MAGN400T6 PO; +MELA10CA2 PO; +METO-387 PO; +SACU1TAB PO
== END ==
LOC: CARD 10:45
PROVIDERS: ATTEND Internal Medicine Cardiovascular Disease
DX: I50.9 Heart failure, unspecified (principal); R07.89 Other chest pain; R06.09 Other forms of dyspnea; I08.3 Combined rheumatic disorders of mitral, aortic and tricuspid valves; E78.2 Mixed hyperlipidemia
CPT/HCPCS: 93306

== ENCOUNTER → 2017-07-14 | Day surgery (SDC) | payer MEDICARE ==
[~2017-07-14] VITALS: Ht 177.8 cm; Wt 76.2 kg
[~2017-07-14] MED LIST changes: +HEParin (CATH LAB) 0 ML IV ONE; +NS IV 1000 ML 1,000 ML IV SCH; +NS IV 1000 ML 1,000 ML ONE
[2017-07-14 11:38] VITALS: BP 130/94
[2017-07-14 11:49] LABS: BILIRUBIN,URINE NEGATIVE (NEGATIVE); CLARITY,URINE CLEAR; COLOR,URINE YELLOW; GLUCOSE, URINE (UA) 2+ (NEGATIVE); KETONES,URINE NEGATIVE (NEGATIVE); LEUKOCYTE ESTERASE ,URINE 1+ (NEGATIVE); MEAN PLATELET VOLUME 10.7 FL (7.4-10.4); NITRITE,URINE NEGATIVE (NEGATIVE); PH,URINE 7 (5-9); PROTEIN,URINE 3+ (NEGATIVE); RED BLOOD COUNT 4.65 10^6/uL (4.35-5.85); UROBILINOGEN,URINE NORMAL (NORMAL); WHITE BLOOD COUNT 3.6 10^3/uL (4.3-11.0)
--- NOTE | 2017-07-14 11:54 | Diagnostic Imaging Report ---
INDICATION: Pre-heart catheterization. Time of exam 11:37 AM Comparison is made with prior study 11/25/2015. Heart size is stable. Right-sided chest wall port has tip overlying the SVC. Lungs are clear. The pulmonary vascularity is normal. No effusion or pneumothorax is identified. Focal eventration of the medial left hemidiaphragm is again noted and unchanged. IMPRESSION: Stable chest. No acute feature is detected. Dictated by: Dictated on workstation # [id number]
[2017-07-14 11:59] LABS: INR 0.9 (0.8-1.4); PROTHROMBIN TIME PATIENT 12.4 SEC (12.2-14.7)
[2017-07-14 12:02] LABS: BACTERIA,URINE TRACE /HPF; HYALINE CASTS, URINE 0-2 /LPF; RBC,URINE 0-2 /HPF; SQUAMOUS EPITHELIAL CELL,UR RARE /HPF
[2017-07-14 12:08] LABS: ALANINE AMINOTRANSFERASE 20 U/L (0-55); ALBUMIN 3.5 GM/DL (3.2-4.5); ALKALINE PHOSPHATASE 85 U/L (40-136); BILIRUBIN,TOTAL 0.8 MG/DL (0.1-1.0); BUN/CREATININE RATIO 20; CALCIUM 8.9 MG/DL (8.5-10.1); CARBON DIOXIDE 26 MMOL/L (21-32); CHLORIDE 103 MMOL/L (98-107); CHOLESTEROL 178 MG/DL (< 200); CREATININE SERUM 0.91 MG/DL (0.60-1.30); GFR ESTIMATED > 60; GLUCOSE 86 MG/DL (70-105); HDL CHOLESTEROL 63 MG/DL (40-60); POTASSIUM 4.2 MMOL/L (3.6-5.0); SODIUM 139 MMOL/L (135-145); TRIGLYCERIDES 58 MG/DL (<150); VLDL CHOLESTEROL 12 MG/DL (5-40)
== END | disposition home or self-care (01) ==
LOC: CATH 10:50
PROVIDERS: ATTEND Internal Medicine Cardiovascular Disease
DX: I50.9 Heart failure, unspecified (principal); E11.9 Type 2 diabetes mellitus without complications; I34.0 Nonrheumatic mitral (valve) insufficiency; I34.1 Nonrheumatic mitral (valve) prolapse; Z88.8 Allergy status to other drugs, medicaments and biological substances; R82.90 Unspecified abnormal findings in urine; Z53.9 Procedure and treatment not carried out, unspecified reason; Z11.2 Encounter for screening for other bacterial diseases
CPT/HCPCS: 36415; 71045; 80053; 80061; 81000; 85027; 85610; 85730; 87081; 87088; 93005

== ENCOUNTER 2017-07-28 07:11 | Day surgery (SDC) | payer MEDICARE ==
[2017-07-28] VITALS (9 sets, daily range): BP systolic 89–130; BP diastolic 51–78
[~2017-07-28] VITALS: Ht 177.8 cm; Wt 81.6 kg
[~2017-07-28 07:11] MED LIST changes: -HEParin (CATH LAB) 0 ML IV ONE; -NS IV 1000 ML 1,000 ML IV SCH; -NS IV 1000 ML 1,000 ML ONE
[2017-07-28] MEDS ORDERED: NS IV 1000 ML 3,000 ML ONE (07:12)
[2017-07-28] MEDS ORDERED: LIDOCAINE 1% INJ 50 ML (XYLOCAINE) VIAL ONE (07:17)
[2017-07-28] MEDS ORDERED: HEParin 1000 UNIT/ML (10ML VIAL) FOR BOLUS ONE (07:17)
[2017-07-28] MEDS ORDERED: NS IV 1000 ML 1,000 ML IV SCH ×2 (07:30→08:58)
--- OUTSIDE RECORDS SUMMARY | 2017-07-28 07:36 | XMS REPORT | Continuity of Care Document ---
Author Author [employer] Organization [facility] Address Unknown Phone Unavailable Care Team Providers Care Signal Manager Name Role Phone [employer] Unavailable Unavailable Problems Medications Allergies, Adverse Reactions, Alerts Immunizations Results Vital Signs Encounters Location Location Details Encounter Type Encounter Number Reason For Visit Attending Provider ADM Date DC Date Status Source CA SERIES [id number] FORTUNATO MARISCAL 02/03/2016 02/03/2016 Active [facility] O 04/13/2017 04/13/2017 Active [facility] Procedures Plan of Care Social History Assessment and Plan Family History Advance Directives Functional Status
--- OUTSIDE RECORDS SUMMARY | 2017-07-28 07:36 | XMS REPORT | Clinical Summary ---
Author Author [facility] Organization [facility] Address Unknown Phone Unavailable Care Team Providers Care Fresh Work Inspector Name Role Phone Kev Sheffield MD Unavailable Becka Turcios MD Unavailable Curtis Welsh MD Unavailable Unavailable Blayne Jarquin DO Unavailable Kiarra Vargas RN Unavailable Unavailable Davis Caldrea PCP Anne Bridges PhD Unavailable Unavailable Deborah Moscoso RN Unavailable Unavailable Roderick Bosch MD Unavailable Jess Yeimi [employer]ONEY[employer] BLANKET MAKER Unavailable Ladonna Rodríguez HONEYCOMB BLANKET MAKER Unavailable Joan Dawson RN Unavailable Unavailable [place] [employer] BLANKET MAKER Unavailable Amber Pickens RN Unavailable Unavailable Tonya Bobo MD Unavailable Valentine Finnegan RN Unavailable Unavailable Eve Ayala RN Unavailable Unavailable Source Comments Some departments are not documenting in the electronic medical record. If you do not see the information that you expected, contact Release of Information in the Health Information Management department at [phone] for further assistance in locating additional records.[facility] Allergies Active Allergy Reactions Severity Noted Date Comments Formaldehyde RASH 04/24/2014 Current Medications Prescription Sig. Disp. Refills Start End Date Status Date insulin pump -ASPART- by SubQ Pump route as Active Patients Own directed. Novolog SubQ Insulin Pump settings: [id number]: 0.6 units/hr 7525-4159: 0.4 units/hr 7239-9788: 0.95 units/hr 1731-8219: 0.9 units/hr 0335-8433: 0.75 units/hr 4771-7847: 0.6 units/hr predniSONE (DELTASONE) 5 Take 1 [...] 01/08/2015 H/O peripheral stem cell transplant (FORMERLY [facility]) 01/05/2015 Overview: Date of Transplant: 12/24/14 Preparative Regimen: BEAC Reduced or fully ablative: Full Disease: NHL Disease Status at Transplant: TX Cytogenetic/FISH at DIAGNOSIS: 45,X,-Y[7]/46,XY[12] CMV: NEG Cell Source: PSC, autologous Consents/Studies: 8322, blood, apheresis, auto, H&P Coordinator: KIARRA VARGAS RN Pancytopenia due to chemotherapy ([facility]ERLY [facility]) 12/31/[address] ([facility]) 12/19/2014 T1DM (type 1 diabetes mellitus) (FORMERLY [facility]) 05/03/2014 Rheumatoid arthritis ([facility]) 05/03/2014 Resolved Problems Problem Noted Date Resolved Date Nystagmus 12/30/2014 01/08/2015 Constipation 12/30/2014 01/08/2015 Mucositis due to antineoplastic therapy 12/30/2014 01/08/2015 Nausea 12/30/2014 01/08/2015 Fluid retention in tissues 12/23/2014 01/08/2015 Chemotherapy-induced nausea and vomiting 12/23/2014 01/08/2015 Conditioning chemotherapy prior to peripheral blood stem cell transplant 01/06/2015 Hypomagnesemia 12/18/2014 01/08/2015 Insect bite of foot or toe of right foot 11/14/2014 01/08/2015 Immunizations Name Dates Previously Given Next Due Acthib Vaccine 11/04/2015, 09/12/2015, 07/11/2015 Flu Vaccine Trivalent >64 01/29/2016 Yo High-dose (Preservative Free) HEPATITIS B vaccine, 09/12/2015 unspecified (Historical) Hepatitis B Vaccine Adult 02/03/2016, 07/11/2015 3 Dose IM IPV 11/04/2015, 09/12/2015, 07/11/2015 Meningococcal Conjug 07/11/2015 Vaccine Pneumococcal 01/29/2016, 11/04/2015, 09/12/2015, 07/11/2015 Vaccine([facility]/immunocompromised adult) Tdap Vaccine 11/04/2015, 09/12/2015, 07/11/2015 Family History Medical History Relation Name Comments Arthritis-rheumatoid Brother Heart Disease Brother Cancer-Prostate Father Diabetes Mother Heart Failure Mother Stroke Mother Thyroid Disease Mother Relation Name Status Comments Brother Brother Father Mother Social History Tobacco Use Types Packs/Day Years Used Date Former Smoker Cigarettes 0.75 25 Quit: 04/27/1999 Smokeless Tobacco: Never Used Comments: smoked for 25 years Alcohol Use Drinks/Week oz/Week Comments Yes 2-3 drinks per day Sex Assigned at Date Recorded Not on file Last Filed Vital Signs Vital Sign Reading Time Taken Blood Pressure 135/87 02/03/2016 10:29 AM CDT Pulse 60 02/03/2016 10:29 AM CDT Temperature 36.7 C (98 F) 02/03/2016 10:29 AM CDT Respiratory Rate 16 02/03/2016 10:29 AM CDT Oxygen Saturation 100% 02/03/2016 10:29 AM CDT Inhaled Oxygen - - Concentration Weight 76.3 kg (168 lb 3.4 oz) 02/03/2016 10:29 AM CDT Height 175.3 cm (5' 9.02") 02/03/2016 10:29 AM CDT Body Mass Index 24.83 02/03/2016 10:29 AM CDT Plan of Treatment Health Maintenance Due Date Last Done Comments PHYSICAL (COMPREHENSIVE) 1952 EXAM DILATED EYE EXAM 1964 FOOT EXAM 1964 MICROALBUMIN 1964 SHINGLES VACCINE 2006 ABDOMINAL AORTIC ANEURYSM 2011 SCREENING HBA1C 11/04/2014 05/07/2014 PREVNAR/PNEUMOVAX (#2) 07/10/2016 01/29/2016, 11/04/2015, 09/12/2015, Additional history exists INFLUENZA VACCINE 01/03/2018 01/29/2016 COLORECTAL CANCER 06/12/2025 06/13/2015 SCREENING TETANUS VACCINE 11/03/2025 11/04/2015, 09/12/2015, 07/11/2015 HEPATITIS C SCREENING Completed 04/29/2014 PERTUSSIS VACCINE Completed 11/04/2015, 09/12/2015, 07/11/2015 Implants Implanted Type Area Pull Over Device Expiration Model / Identifier Date Serial / Lot Cutdown Kit [id number] [facility] [id number] Implanted: Qty: 1 on 01/08/2015 / / Results Not on filefrom Last 3 Months
--- OUTSIDE RECORDS SUMMARY | 2017-07-28 07:40 | XMS REPORT | Continuity of Care Document ---
Author Author [facility] Organization [facility] Address Unknown Phone Unavailable Allergies Active Description Code Type Severity Reaction Onset Reported/Identified Relationship to Patient Clinical Status Yes NO KNOWN DRUG ALLERGIES UNKNOWN NO KNOWN DRUG ALLERG Yes formaldehyde [id number] Drug Allergy Unknown N/A 12/20/2007 Yes acetaminophen [id number] Drug Allergy Moderate RASH 07/14/2017 Yes hydrocodone [id number] Drug Allergy Moderate RASH 07/14/2017 Yes oxycodone [id number] Drug Allergy Moderate RASH 07/14/2017 Medications There is no data. Problems Date Dx Coded Attending Type Code Diagnosis Diagnosed By 08/02/2013 KEREN ALBERTO MD Ot 250.00 DIAB GER WO COMPL, TYPE II OR UNSPEC TY 08/02/2013 KEREN ALBERTO MD Ot 600.00 HYPERTROPHY (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 URI 08/02/2013 KEREN ALBERTO MD Ot V58.67 LONG-TERM (CURRENT) USE OF INSULIN 08/15/2013 ETTA ROMANO DO Ot 596.0 BLADDER NECK OBSTRUCTION 08/15/2013 IDANIA ROMANO DOA Rm Ot 599.0 URIN TRACT INFECTION NOS 08/15/2013 ETTA ROMANO DO Ot 599.71 GROSS HEMATURIA 03/22/2014 JENNIFER DOMINGUEZ RUFFLING HEMMER AUTOMATIC Ot 784.2 03/26/2014 MANPREET OVERTON RESTAURANT GREETER Ot 788.1 DYSURIA 03/27/2014 MANPREET OVERTON RESTAURANT GREETER Ot 788.1 03/28/2014 MANPREET OVERTON RESTAURANT GREETER Ot 788.1 04/18/2014 BARTOLO JURADO, NILO Fernandez Ot 388.70 04/18/2014 BARTOLO JURADO, NILO Fernandez Ot 723.1 04/18/2014 BARTOLO JURADO, NILO Fernandez Ot 787.21 04/18/2014 KEREN ALBERTO MD Ot 600.00 04/18/2014 KEREN ALBERTO MD Ot V72.63 04/18/2014 DOLLY JURADO, KEREN [place] Ot V72.81 04/18/2014 DOLLY JURADO, KEREN [place] Ot V74.8 04/18/2014 JENNIFER DOMINGUEZ RUFFLING HEMMER AUTOMATIC Ot 784.2 04/18/2014 DOLLY JURADO, KEREN [place] Ot 789.00 04/18/2014 DOLLY JURADO, KEREN [place] Ot V81.5 04/19/2014 DOLLY JURADO, KEREN [place] Ot 789.09 04/21/2014 CRYSTAL JURADO, MONICA Abdalla Ot 250.80 DIAB W OTH SPEC MANIFEST, TYPE II OR UNS 04/21/2014 MONICA ROJAS MD Ot 272.0 PURE HYPERCHOLESTEROLEM 04/21/2014 MONICA ROJAS MD Ot 401.9 HYPERTENSION NOS 04/21/2014 MONICA ROJAS MD Ot 564.00 UNSPEC CONSTIPATION 04/21/2014 MONICA ROJAS MD Ot 591 HYDRONEPHROSIS 04/21/2014 MONICA ROJAS MD Ot 599.71 GROSS HEMATURIA 04/21/2014 MONICA ROJAS MD Ot 714.0 RHEUMATOID ARTHRITIS 04/21/2014 MONICA ROJAS MD Ot 716.90 ARTHROPATHY NOS-UNSPEC 04/21/2014 CRYSTAL JURADO, MONICA Abdalla Ot 789.09 ABDOMINAL PAIN, OTHER SPECIFIED SITE 04/21/2014 CRYSTAL JURADO, MONICA Abdalla Ot 789.30 ABDOMINAL/PELVIC SWELLING,MASS/LUMP UNSP 04/21/2014 MONICA ROJAS MD Ot V58.65 LONG-TERM(CURRENT)USE OF STEROIDS 04/21/2014 MONICA ROJAS MD Ot V58.67 LONG-TERM (CURRENT) USE OF INSULIN 04/21/2014 MONICA ROJAS MD Ot V58.69 OTH MED,LT,CURRENT USE 05/05/2014 DOLLY JURADO, KEREN [place] Ot 789.00 05/05/2014 DOLLY JURADO, KEREN [place] Ot V81.5 05/05/2014 DOLLY JURADO, KEREN [place] Ot 789.09 06/13/2014 Ot 202.80 OTH LYMPHOMAS EXTRANODAL SOLID ORGAN U 06/13/2014 Ot 550.90 UNILAT INGUINAL HERNIA 06/13/2014 Ot 599.0 URIN TRACT INFECTION NOS 06/13/2014 Ot 787.02 NAUSEA ALONE 06/18/2014 Ot 202.80 OTH LYMPHOMAS EXTRANODAL SOLID ORGAN U 06/18/2014 Ot 250.00 DIAB GER WO COMPL, TYPE II OR UNSPEC TY 06/26/2014 CRYSTAL JURADO, MONICA Abdalla Ot 202.80 06/26/2014 CRYSTAL JURADO, MONICA Abdalla Ot V58.81 06/26/2014 CRYSTAL JURADO, MONICA Abdalla Ot 202.80 06/26/2014 CRYSTAL JURADO, MONICA Abdalla Ot V58.81 06/26/2014 CRYSTAL JURADO, MONICA Abdalla Ot 202.80 06/26/2014 CRYSTAL JURADO, MONICA Abdalla Ot V58.81 07/02/2014 Ot 202.80 07/02/2014 Ot 792.1 07/02/2014 Ot 202.80 07/02/2014 Ot 792.1 07/16/2014 CRYSTAL JURADO, MONICA Abdalla Ot 202.80 07/16/2014 CRYSTAL JURADO, MONICA Abdalla Ot V58.81 08/07/2014 CRYSTAL JURADO, MONICA Abdalla Ot 202.80 08/07/2014 CRYSTAL JURADO, MONICA Abdalla Ot V58.81 08/13/2014 CARI JURADO, NILO Yadav Ot 569.62 MECH COMPL/COLOSTOMY ENTEROSTOMY 08/13/2014 CARI JURADO, NILO Yadav Ot V44.3 COLOSTOMY STATUS 08/22/2014 CRYSTAL JURADO, MONICA Abdalla Ot 202.80 08/22/2014 CRYSTAL JURADO, MONICA Abdalla Ot V58.81 08/24/2014 Ot 195.3 08/24/2014 CRYSTAL JURADO, MONICA Abdalla Ot 200.80 09/09/2014 CRYSTAL JURADO, MONICA Abdalla Ot 202.80 OTH LYMPHOMAS EXTRANODAL SOLID ORGAN U 09/09/2014 CRYSTAL JURADO, MONICA Abdalla Ot V58.11 ENCOUNTER FOR ANTINEOPLASTIC CHEMOTHERAP 09/09/2014 CRYSTAL JURADO, MONICA Abdalla Ot V58.81 FIT/ADJ VASCULAR CATHETER 09/11/2014 Ot 195.3 09/13/2014 CRYSTAL JURADO, MONICA Abdalla Ot 202.80 09/13/2014 CRYSTAL JURADO, MONICA Abdalla Ot V58.81 09/13/2014 CRYSTAL JURADO, MONICA Abdalla Ot 202.80 09/13/2014 CRYSTAL JURADO, MONICA Abdalla Ot V58.81 09/14/2014 CRYSTAL JURADO, MONICA Abdalla Ot 202.80 09/28/2014 CRYSTAL JURADO, MONICA Abdalla Ot 200.80 10/01/2014 CRYSTAL JURADO, MONICA Abdalla Ot 200.70 10/08/2014 CRYSTAL JURADO, MONICA Abdalla Ot 202.80 10/08/2014 CRYSTAL JURADO, MONICA Abdalla Ot 202.80 10/09/2014 CRYSTAL JURADO, MONICA Abdalla Ot 202.80 10/26/2014 CRYSTAL JURADO, MONICA Abdalla Ot 202.80 11/05/2014 CRYSTAL JURADO, MONICA Abdalla Ot 202.80 11/07/2014 MANDYNATANAEL S TRIP RIDER Ot 202.80 11/07/2014 MANDY NATANAEL S TRIP RIDER Ot 250.00 11/07/2014 MANDY NATANAEL S TRIP RIDER Ot 272.4 11/07/2014 MANDY NATANAEL S TRIP RIDER Ot 356.9 11/07/2014 GALVAN, NATANAEL S TRIP RIDER Ot 401.9 11/07/2014 GALVAN, NATANAEL S TRIP RIDER Ot 564.00 11/07/2014 MANDY NATANAEL S TRIP RIDER Ot 714.0 11/07/2014 MANDY NATANAEL S TRIP RIDER Ot V44.3 11/07/2014 MANDY NATANAEL S TRIP RIDER Ot V45.85 11/07/2014 MANDY NATANAEL S TRIP RIDER Ot V58.69 11/09/2014 CRYSTAL JURADO, MONICA Abdalla Ot 200.70 11/26/2014 JENNIFER DOMINGUEZ RUFFLING HEMMER AUTOMATIC Ot 784.2 11/26/2014 MANDY NATANAEL S TRIP RIDER Ot 202.80 11/26/2014 MANDY NATANAEL S TRIP RIDER Ot 250.00 11/26/2014 MANDY NATANAEL S TRIP RIDER Ot 272.4 11/26/2014 MANDY NATANAEL S TRIP RIDER Ot 356.9 11/26/2014 MANDY NATANAEL S TRIP RIDER Ot 401.9 11/26/2014 MANDY NATANAEL S TRIP RIDER Ot 564.00 11/26/2014 MANDYNATANAEL S TRIP RIDER Ot 714.0 11/26/2014 MANDY NATANAEL S TRIP RIDER Ot V44.3 11/26/2014 MANDY NATANAEL S TRIP RIDER Ot V45.85 11/26/2014 MANDY NATANAEL S TRIP RIDER Ot V58.69 12/12/2014 CRYSTAL JURADO, MONICA Abdalla Ot 202.80 OTH LYMPHOMAS EXTRANODAL SOLID ORGAN U 12/12/2014 CRYSTAL JURADO, MONICA Abdalla Ot 250.00 DIAB GER WO COMPL, TYPE II OR UNSPEC TY 12/12/2014 CRYSTAL JURADO, MONICA Abdalla Ot 272.4 HYPERLIPIDEMIA NEC/NOS 12/12/2014 MONICA ROJAS MD Ot 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 12/12/2014 MONICA ROJAS MD Ot 288.03 DRUG INDUCED NEUTROPENIA 12/12/2014 MONICA ROJAS MD, Ot 401.9 HYPERTENSION NOS 12/12/2014 MONICA ROJAS MD Ot 714.0 RHEUMATOID ARTHRITIS 12/12/2014 MONICA ROJAS MD Ot 780.4 DIZZINESS AND GIDDINESS 12/12/2014 MONICA ROJAS MD, Ot E849.0 ACCIDENT IN HOME 12/12/2014 MONICA ROJAS MD, Ot E933.1 ADV EFF ANTINEOPLASTIC 12/12/2014 MONICA ROJAS MD Ot V45.85 INSULIN PUMP STATUS 12/12/2014 MONICA ROJAS MD Ot V58.11 ENCOUNTER FOR ANTINEOPLASTIC CHEMOTHERAP 12/12/2014 MONICA ROJAS MD, Ot V58.67 LONG-TERM (CURRENT) USE OF INSULIN 12/12/2014 MONICA ROJAS MD, Ot V58.69 OTH MED,LT,CURRENT USE 02/11/2015 MONICA ROJAS MD Ot 202.80 02/11/2015 MONICA ROJAS MD Ot C85.80 03/04/2015 MONICA ROJAS MD, Ot C85.80 03/04/2015 MONICA ROJAS MD Ot E11.9 03/04/2015 MONICA ROJAS MD, Ot E78.5 03/04/2015 MONICA ROJAS MD Ot I10 03/04/2015 MONICA ROJAS MD, Ot Z79.899 03/04/2015 MONICA ROJAS MD, Ot Z93.3 03/04/2015 MONICA ROJAS MD Ot Z96.41 03/14/2015 MONICA ROJAS MD, Ot C83.33 04/04/2015 MONICA ROJAS MD Ot C83.33 04/11/2015 MONICA ROJAS MD, Ot 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, UNSPE 04/11/2015 MONICA ROJAS MD Ot E11.9 TYPE 2 DIABETES MELLITUS WITHOUT COMPLIC 04/11/2015 MONICA ROJAS MD Ot E78.5 HYPERLIPIDEMIA, UNSPECIFIED 04/11/2015 MONICA ROJAS MD Ot I10 ESSENTIAL (PRIMARY) HYPERTENSION 04/11/2015 MONICA ROJAS MD Ot Z79.899 OTHER RETIREMENT (CURRENT) DRUG THERAPY 04/11/2015 MONICA ROJAS MD Ot Z93.3 COLOSTOMY STATUS 04/11/2015 CRYSTAL JURADO MONICA Abdalla Ot Z96.41 PRESENCE OF INSULIN PUMP (EXTERNAL) (INT 04/18/2015 CRYSTAL JURADO, MONICA Rm Ot C85.80 04/18/2015 CRYSTAL JURADO, MONICA K Ot E11.9 04/18/2015 CRYSTAL JURADO, MONICA K Ot E78.5 04/18/2015 CRYSTAL JURADO, MONICA Abdalla Ot I10 04/18/2015 CRYSTAL JURADO, MONICA Abdalla Ot Z79.899 04/18/2015 CRYSTAL JURADO, MONICA K Ot Z93.3 04/18/2015 CRYSTAL JURADO, MONICA Abdalla Ot Z96.41 04/18/2015 CRYSTAL JURADO, MONICA Abdalla Ot C83.33 05/03/2015 CRYSTAL JURADO, MONICA K Ot C85.80 05/03/2015 CRYSTAL JURADO, MONICA Rm Ot E11.9 05/03/2015 CRYSTAL JURADO, MONICA Abdalla Ot E78.5 05/03/2015 CRYSTAL JURADO, MONICA Abdalla Ot I10 05/03/2015 CRYSTAL JURADO, MONICA Abdalla Ot Z79.899 05/03/2015 CRYSTAL JURADO, MONICA Abdalla Ot Z93.3 05/03/2015 CRYSTAL JURADO, MONICA Abdalla Ot Z96.41 05/13/2015 CRYSTAL JURADO, MONICA Abdalla Ot C85.80 05/13/2015 CRYSTAL JURADO, MONICA K Ot E11.9 05/13/2015 CRYSTAL JURADO, MONICA Rm Ot E78.5 05/13/2015 CRYSTAL JURADO, MONICA K Ot I10 05/13/2015 CRYSTAL JURADO, MONICA K Ot Z79.899 05/13/2015 CRYSTAL JURADO, MONICA Abdalla Ot Z93.3 05/13/2015 CRYSTAL JURADO, MONICA Abdalla Ot Z96.41 06/25/2015 CRYSTAL JURADO, MONICA K Ot C85.80 06/25/2015 CRYSTAL JURADO, MONICA K Ot E11.9 06/25/2015 CRYSTAL JURADO, MONICA Abdalla Ot E78.5 06/25/2015 CRYSTAL JURADO, MONICA K Ot I10 06/25/2015 CRYSTAL JURADO, MONICA Abdalla Ot Z79.899 06/25/2015 CRYSTAL JURADO, MONICA K Ot Z93.3 06/25/2015 CRYSTAL JURADO, MONICA Abdalla Ot Z96.41 06/27/2015 BARTOLO JURADO, NILO P Ot 388.70 06/27/2015 BARTOLO JURADO, NILO P Ot 723.1 06/27/2015 BARTOLO JURADO, NILO P Ot 787.21 06/27/2015 DOLLY JURADO, KEREN A Ot 600.00 06/27/2015 DOLLY JURADO, KEREN A Ot V72.63 06/27/2015 DOLLY JURADO, KEREN A Ot V72.81 06/27/2015 DOLLY JURADO, KEREN A Ot V74.8 06/27/2015 ANGELICAJENNIFER SANDERS RUFFLING HEMMER AUTOMATIC Ot 784.2 06/27/2015 DOLLY JURADO, KEREN A Ot 789.09 06/27/2015 DOLLY JURADO, KEREN A Ot 789.00 06/27/2015 DOLLY JURADO, KEREN A Ot V81.5 06/27/2015 DEBORA JURADO, BRANDO K Ot 791.9 06/27/2015 Ot 202.80 06/27/2015 Ot 792.1 06/27/2015 Ot 202.80 06/27/2015 Ot 792.1 06/27/2015 Ot 153.9 06/27/2015 Ot V72.83 06/27/2015 Ot V74.8 06/27/2015 Ot 195.3 06/27/2015 CRYSTAL JURADO, MONICA Abdalla Ot 200.80 06/27/2015 CRYSTAL JURADO, MONICA Abdalla Ot 200.70 06/27/2015 NATANAEL GALVAN TRIP RIDER Ot 202.80 06/27/2015 NATANAEL GALVAN TRIP RIDER Ot 250.00 06/27/2015 NATANAEL GALVAN S TRIP RIDER Ot 272.4 06/27/2015 NATANAEL GALVAN S TRIP RIDER Ot 356.9 06/27/2015 NATANAEL GALVAN S TRIP RIDER Ot 401.9 06/27/2015 NATANAEL GALVAN S TRIP RIDER Ot 564.00 06/27/2015 NATANAEL GALVAN S TRIP RIDER Ot 714.0 06/27/2015 NATANAEL GALVAN S TRIP RIDER Ot V44.3 06/27/2015 NATANAEL GALVAN TRIP RIDER Ot V45.85 06/27/2015 NATANAEL GALVAN TRIP RIDER Ot V58.69 06/27/2015 CRYSTAL JURADO, MONICA Abdalla Ot C83.33 06/27/2015 CRYSTAL JURADO, MONICA Abdalla Ot C85.80 06/27/2015 CRYSTAL JURADO, MONICA Abdalla Ot E11.9 06/27/2015 CRYSTAL JURADO, MONICA Abdalla Ot E78.5 06/27/2015 CRYSTAL JURADO, MONICA Abdalla Ot I10 06/27/2015 CRYSTAL JURADO, MONICA Abdalla Ot Z79.899 06/27/2015 CRYSTAL JURADO, MONICA Abdalla Ot Z93.3 06/27/2015 CRYSTAL JURADO, MONICA Abdalla Ot Z96.41 06/27/2015 CRYSTAL JURADO, MONICA Rm Ot C83.33 06/28/2015 CRYSTAL JURADO, MONICA Rm Ot C83.33 07/02/2015 CRYSTAL JURADO, MONICA Abdalla Ot C83.33 07/03/2015 CRYSTAL JURADO, MONICA Rm Ot C83.33 07/09/2015 CRYSTAL JURADO, MONICA Abdalla Ot C85.80 07/09/2015 CRYSTAL JURADO, MONICA Rm Ot E11.9 07/09/2015 CRYSTAL JURADO, MONICA Abdalla Ot E78.5 07/09/2015 CRYSTAL JURADO, OMNICA Abdalla Ot I10 07/09/2015 CRYSTAL JURADO, MONICA Abdalla Ot Z79.899 07/09/2015 CRYSTAL JURADO, MONICA Abdalla Ot Z93.3 07/09/2015 CRYSTAL JURADO, MONICA Abdalla Ot Z96.41 07/17/2015 CAROLE INGRAM MD Ot E11.9 07/17/2015 CAROLE INGRAM MD Ot E78.2 07/17/2015 CAROLE INGRAM MD Ot I34.0 07/17/2015 CAROLE INGRAM MD Ot R07.9 07/17/2015 CAROLE INGRAM MD Ot E11.9 07/17/2015 CAROLE INGRAM MD Ot E78.2 07/17/2015 CAROLE INGRAM MD Ot I34.0 07/17/2015 CAROLE INGRAM MD Ot R07.9 07/17/2015 CRYSTAL JURADO, MONICA Abdalla Ot C83.33 07/22/2015 CRYSTAL JURADO, MONICA Abdalla Ot 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, INTRA-ABD 07/24/2015 CRYSTAL JURADO, MONICA Abdalla Ot 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, INTRA-ABD 08/07/2015 CAROLE INGRAM MD Ot E11.9 TYPE 2 DIABETES MELLITUS WITHOUT COMPLIC 08/07/2015 CAROLE INGRAM MD Ot E78.2 MIXED HYPERLIPIDEMIA 08/07/2015 CAROLE INGRAM MD Ot I34.0 NONRHEUMATIC MITRAL (VALVE) INSUFFICIENC 08/07/2015 CAROLE INGRAM MD Ot R07.9 CHEST PAIN, UNSPECIFIED 08/07/2015 CAROLE INGRAM MD Ot E11.9 TYPE 2 DIABETES MELLITUS WITHOUT COMPLIC 08/07/2015 CAROLE INGRAM MD Ot E78.2 MIXED HYPERLIPIDEMIA 08/07/2015 CAROLE INGRAM MD Ot I34.0 NONRHEUMATIC MITRAL (VALVE) INSUFFICIENC 08/07/2015 CAROLE INGRAM MD Ot R07.9 CHEST PAIN, UNSPECIFIED 08/07/2015 MONICA ROJAS MD Ot 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, INTRA-ABD 08/07/2015 MONICA ROJAS MD, Ot 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, INTRA-ABD 08/08/2015 MONICA ROJAS MD, Ot 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, UNSPE 08/08/2015 MONICA ROJAS MD, Ot E11.9 TYPE 2 DIABETES MELLITUS WITHOUT COMPLIC 08/08/2015 MONICA ROJAS MD, Ot E78.5 HYPERLIPIDEMIA, UNSPECIFIED 08/08/2015 MONICA ROJAS MD Ot I10 ESSENTIAL (PRIMARY) HYPERTENSION 08/08/2015 MONICA ROJAS MD Ot Z79.899 OTHER GLAZE GRINDER (CURRENT) DRUG THERAPY 08/08/2015 MONICA ROJAS MD Ot Z93.3 COLOSTOMY STATUS 08/08/2015 MONICA ROJAS MD Ot Z96.41 PRESENCE OF INSULIN PUMP (EXTERNAL) (INT 08/09/2015 MONICA ROJAS MD, Ot 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, UNSPE 08/09/2015 MONICA ROJAS MD, Ot E11.9 TYPE 2 DIABETES MELLITUS WITHOUT COMPLIC 08/09/2015 MONICA ROJAS MD, Ot E78.5 HYPERLIPIDEMIA, UNSPECIFIED 08/09/2015 MONICA ROJAS MD Ot I10 ESSENTIAL (PRIMARY) HYPERTENSION 08/09/2015 MONICA ROJAS MD Ot Z79.899 OTHER RETIREMENT (CURRENT) DRUG THERAPY 08/09/2015 MONICA ROJAS MD Ot Z93.3 COLOSTOMY STATUS 08/09/2015 MONICA ROJAS MD Ot Z96.41 PRESENCE OF INSULIN PUMP (EXTERNAL) (INT 08/15/2015 MONICA ROJAS MD, Ot 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, UNSPE 08/15/2015 MONICA ROJAS MD Ot E11.9 TYPE 2 DIABETES MELLITUS WITHOUT COMPLIC 08/15/2015 MONICA ROJAS MD Ot E78.5 HYPERLIPIDEMIA, UNSPECIFIED 08/15/2015 MONICA ROJAS MD Ot I10 ESSENTIAL (PRIMARY) HYPERTENSION 08/15/2015 MONICA ROJAS MD Ot Z79.899 OTHER GLAZE GRINDER (CURRENT) DRUG THERAPY 08/15/2015 MONICA ROJAS MD Ot Z93.3 COLOSTOMY STATUS 08/15/2015 MONICA ROJAS MD Ot Z96.41 PRESENCE OF INSULIN PUMP (EXTERNAL) (INT 08/16/2015 MONICA ROJAS MD Ot 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, UNSPE 08/16/2015 MONICA ROJAS MD Ot E11.9 TYPE 2 DIABETES MELLITUS WITHOUT COMPLIC 08/16/2015 MONICA ROJAS MD Ot E78.5 HYPERLIPIDEMIA, UNSPECIFIED 08/16/2015 MONICA ROJAS MD Ot I10 ESSENTIAL (PRIMARY) HYPERTENSION 08/16/2015 MONICA ROJAS MD Ot Z79.899 OTHER GLAZE GRINDER (CURRENT) DRUG THERAPY 08/16/2015 MONICA ROJAS MD Ot Z93.3 COLOSTOMY STATUS 08/16/2015 MONICA ROJAS MD Ot Z96.41 PRESENCE OF INSULIN PUMP (EXTERNAL) (INT 08/19/2015 MONICA ROJAS MD Ot R10.31 RIGHT LOWER QUADRANT PAIN 08/26/2015 CAROLE INGRAM MD Ot E11.9 TYPE 2 DIABETES MELLITUS WITHOUT COMPLIC 08/26/2015 CAROLE INGRAM MD Ot E78.2 MIXED HYPERLIPIDEMIA 08/26/2015 CAROLE INGRAM MD Ot I34.0 NONRHEUMATIC MITRAL (VALVE) INSUFFICIENC 08/26/2015 CAROLE INGRAM MD Ot R07.9 CHEST PAIN, UNSPECIFIED 09/10/2015 MONICA ROJAS MD Ot R10.31 RIGHT LOWER QUADRANT PAIN 09/18/2015 MONICA ROJAS MD Ot R10.31 RIGHT LOWER QUADRANT PAIN 09/27/2015 MONICA ROJAS MD Ot 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, UNSPE 09/27/2015 MONICA ROJAS MD Ot E11.9 TYPE 2 DIABETES MELLITUS WITHOUT COMPLIC 09/27/2015 MONICA ROJAS MD Ot E78.5 HYPERLIPIDEMIA, UNSPECIFIED 09/27/2015 MONICA ROJAS MD Ot I10 ESSENTIAL (PRIMARY) HYPERTENSION 09/27/2015 MONICA ROJAS MD Ot Z79.899 OTHER GLAZE GRINDER (CURRENT) DRUG THERAPY 09/27/2015 MONICA ROJAS MD Ot Z93.3 COLOSTOMY STATUS 09/27/2015 MONICA ROJAS MD Ot Z96.41 PRESENCE OF INSULIN PUMP (EXTERNAL) (INT 10/27/2015 Ot C85.90 NON-HODGKIN LYMPHOMA, UNSPECIFIED, UNSPE 10/27/2015 Ot M06.9 RHEUMATOID ARTHRITIS, UNSPECIFIED 10/27/2015 Ot R10.13 EPIGASTRIC PAIN 10/29/2015 Ot C85.90 NON-HODGKIN LYMPHOMA, UNSPECIFIED, UNSPE 10/29/2015 Ot M06.9 RHEUMATOID ARTHRITIS, UNSPECIFIED 10/29/2015 Ot R10.13 EPIGASTRIC PAIN 11/04/2015 MONICA ROJAS MD Ot 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, UNSPE 11/04/2015 MONICA ROJAS MD Ot E11.9 TYPE 2 DIABETES MELLITUS WITHOUT COMPLIC 11/04/2015 MONICA ROJAS MD Ot E78.5 HYPERLIPIDEMIA, UNSPECIFIED 11/04/2015 MONICA ROJAS MD Ot I10 ESSENTIAL (PRIMARY) HYPERTENSION 11/04/2015 MONICA ROJAS MD Ot Z79.899 OTHER RETIREMENT (CURRENT) DRUG THERAPY 11/04/2015 MONICA ROJAS MD Ot Z93.3 COLOSTOMY STATUS 11/04/2015 MONICA ROJAS MD Ot Z96.41 PRESENCE OF INSULIN PUMP (EXTERNAL) (INT 11/13/2015 MONICA ROJAS MD Ot 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, UNSPE 11/13/2015 MONICA ROJAS MD Ot E11.9 TYPE 2 DIABETES MELLITUS WITHOUT COMPLIC 11/13/2015 MONICA ROJAS MD Ot E78.5 HYPERLIPIDEMIA, UNSPECIFIED 11/13/2015 MONICA ROJAS MD Ot I10 ESSENTIAL (PRIMARY) HYPERTENSION 11/13/2015 MONICA ROJAS MD Ot Z79.899 OTHER RETIREMENT (CURRENT) DRUG THERAPY 11/13/2015 MONICA ROJAS MD Ot Z93.3 COLOSTOMY STATUS 11/13/2015 MONICA ROJAS MD Ot Z96.41 PRESENCE OF INSULIN PUMP (EXTERNAL) (INT 11/27/2015 MONICA ROJAS MD Ot 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, UNSPECIFIED 12/02/2015 MONICA ROJAS MD Ot 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, UNSPECIFIED 12/03/2015 MONICA ROJAS MD Ot 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, UNSPECIFIED 12/03/2015 CRYSTAL JURADO, MONICA Abdalla Ot 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, UNSPECIFIED 12/03/2015 CRYSTAL JURADO, MONICA Abdalla Ot 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, UNSPECIFIED 12/03/2015 CRYSTAL JURADO, MONICA Abdalla Ot 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, UNSPECIFIED 12/05/2015 MONICA ROJAS MD Ot 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, UNSPE 12/05/2015 MONICA ROJAS MD Ot E11.9 TYPE 2 DIABETES MELLITUS WITHOUT COMPLIC 12/05/2015 MONICA ROJAS MD Ot E78.5 HYPERLIPIDEMIA, UNSPECIFIED 12/05/2015 MONICA ROJAS MD Ot I10 ESSENTIAL (PRIMARY) HYPERTENSION 12/05/2015 MONICA ROJAS MD Ot Z79.899 OTHER GLAZE GRINDER (CURRENT) DRUG THERAPY 12/05/2015 MONICA ROJAS MD Ot Z93.3 COLOSTOMY STATUS 12/05/2015 MONICA ROJAS MD Ot Z96.41 PRESENCE OF INSULIN PUMP (EXTERNAL) (INT 12/13/2015 MONICA ROJAS MD, Ot 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, UNSPE 12/13/2015 MONICA ROJAS MD Ot E11.9 TYPE 2 DIABETES MELLITUS WITHOUT COMPLIC 12/13/2015 MONICA ROJAS MD Ot E78.5 HYPERLIPIDEMIA, UNSPECIFIED 12/13/2015 MONICA ROJAS MD Ot I10 ESSENTIAL (PRIMARY) HYPERTENSION 12/13/2015 MONICA ROJAS MD Ot Z79.899 OTHER RETIREMENT (CURRENT) DRUG THERAPY 12/13/2015 MONICA ROJAS MD Ot Z93.3 COLOSTOMY STATUS 12/13/2015 MONICA ROJAS MD Ot Z96.41 PRESENCE OF INSULIN PUMP (EXTERNAL) (INT 12/20/2015 MONICA ROJAS MD Ot 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, UNSPECIFIED 01/06/2016 MONICA ROJAS MD, Ot 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, UNSPECIFIED 01/13/2016 MONICA ROJAS MD Ot 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, UNSPE 01/13/2016 MONICA ROJAS MD Ot E11.9 TYPE 2 DIABETES MELLITUS WITHOUT COMPLIC 01/13/2016 MONICA ROJAS MD Ot E78.5 HYPERLIPIDEMIA, UNSPECIFIED 01/13/2016 MONICA ROJAS MD Ot I10 ESSENTIAL (PRIMARY) HYPERTENSION 01/13/2016 MONICA ROJAS MD Ot Z79.899 OTHER GLAZE GRINDER (CURRENT) DRUG THERAPY 01/13/2016 MONICA ROJAS MD Ot Z93.3 COLOSTOMY STATUS 01/13/2016 MONICA ROJAS MD Ot Z96.41 PRESENCE OF INSULIN PUMP (EXTERNAL) (INT 01/16/2016 Ot C85.10 UNSPECIFIED B-CELL LYMPHOMA, UNSPECIFIED 01/21/2016 NILO MCFARLAND MD Ot 388.70 OTALGIA NOS 01/21/2016 NILO MCFARLAND MD Ot 723.1 CERVICALGIA 01/21/2016 NILO MCFARLAND MD Ot 787.21 DYSPHAGIA, ORAL PHASE 01/21/2016 KEREN ALBERTO MD Ot 600.00 HYPERTROPHY (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 URI 01/21/2016 KEREN ALBERTO MD Ot V72.63 PRE-PROCEDURAL LABORATORY EXAMINATION 01/21/2016 KEREN ALBERTO MD Ot V72.81 [id number] CARDIOVASCULAR 01/21/2016 KEREN ALBERTO MD Ot V74.8 SCREEN-BACTERIAL DIS NEC 01/21/2016 JENNIFER DOMINGUEZ [employer]ING [employer] Ot 784.2 SWELLING IN HEAD NECK 01/21/2016 KEREN ALBERTO MD Ot 789.09 ABDOMINAL PAIN, OTHER SPECIFIED SITE 01/21/2016 KEREN ALBERTO MD Ot 789.00 ABDOMINAL PAIN, UNSPECIFIED SITE 01/21/2016 KEREN ALBERTO MD Ot V81.5 SCREEN FOR NEPHROPATHY 01/21/2016 BRANDO CAZARES MD Ot 791.9 ABN URINE FINDINGS NEC 01/21/2016 Ot 202.80 OTH LYMPHOMAS EXTRANODAL SOLID ORGAN U 01/21/2016 Ot 792.1 ABN FIND- STOOL CONTENTS 01/21/2016 Ot 202.80 OTH LYMPHOMAS EXTRANODAL SOLID ORGAN U 01/21/2016 Ot 792.1 ABN FIND- STOOL CONTENTS 01/21/2016 Ot 153.9 MALIGNANT GEOVANY COLON NOS 01/21/2016 Ot V72.83 EXAM PRE- OPERATIVE NEC 01/21/2016 Ot V74.8 SCREEN- BACTERIAL DIS NEC 01/21/2016 Ot 195.3 MALIGN NEOPL PELVIS 01/21/2016 MONICA ROJAS MD Ot 200.80 OTHER VARIANTS, EXTRANODAL SOLID ORGAN 01/21/2016 CRYSTAL JURADO, OMNICA Abdalla Ot 200.70 LARGE CELL LYMPHOMA, UNSP SITE, EXTRANOD 01/21/2016 NATANAEL GALVAN TRIP RIDER Ot 202.80 OTH LYMPHOMAS EXTRANODAL SOLID ORGAN U 01/21/2016 NATANAEL GALVAN TRIP RIDER Ot 250.00 DIAB GER WO COMPL, TYPE II OR UNSPEC TY 01/21/2016 NATANAEL GALVAN S TRIP RIDER Ot 272.4 HYPERLIPIDEMIA NEC/NOS 01/21/2016 NATANAEL GALVAN S TRIP RIDER Ot 356.9 IDIO PERIPH NEURPTHY NOS 01/21/2016 ALEX GALVANANTONIETTA S TRIP RIDER Ot 401.9 HYPERTENSION NOS 01/21/2016 NATANAEL GALVAN S TRIP RIDER Ot 564.00 UNSPEC CONSTIPATION 01/21/2016 ALEX GALVANANTONIETTA S TRIP RIDER Ot 714.0 RHEUMATOID ARTHRITIS 01/21/2016 NATANAEL GALVAN TRIP RIDER Ot V44.3 COLOSTOMY STATUS 01/21/2016 NATANAEL GALVAN TRIP RIDER Ot V45.85 INSULIN PUMP STATUS 01/21/2016 ALEX GALVANANTONIETTA S TRIP RIDER Ot V58.69 OTH MED,LT,CURRENT USE 01/21/2016 CRYSTAL JURADO, MONICA Abdalla Ot 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, INTRA-ABD 01/21/2016 CRYSTAL JURADO, MONICA Abdalla Ot 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, INTRA-ABD 01/21/2016 CRYSTAL JURADO, MONICA Abdalla Ot 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, INTRA-ABD 01/21/2016 CRYSTAL JURADO, MONICA Abdalla Ot 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, INTRA-ABD 01/21/2016 CAROLE INGRAM MD Ot E11.9 TYPE 2 DIABETES MELLITUS WITHOUT COMPLIC 01/21/2016 CAROLE INGRAM MD Ot E78.2 MIXED HYPERLIPIDEMIA 01/21/2016 CAROLE INGRAM MD Ot I34.0 NONRHEUMATIC MITRAL (VALVE) INSUFFICIENC 01/21/2016 CAROLE INGRAM MD Ot R07.9 CHEST PAIN, UNSPECIFIED 01/21/2016 CAROLE INGRAM MD Ot E11.9 TYPE 2 DIABETES MELLITUS WITHOUT COMPLIC 01/21/2016 CAROLE INGRAM MD Ot E78.2 MIXED HYPERLIPIDEMIA 01/21/2016 CAROLE INGRAM MD Ot I34.0 NONRHEUMATIC MITRAL (VALVE) INSUFFICIENC 01/21/2016 CAROLE INGRAM MD Ot R07.9 CHEST PAIN, UNSPECIFIED 01/21/2016 MONICA ROJAS MD Ot R10.31 RIGHT LOWER QUADRANT PAIN 01/21/2016 MONICA ROJAS MD Ot 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, UNSPECIFIED 01/21/2016 Ot C85.10 UNSPECIFIED B-CELL LYMPHOMA, UNSPECIFIED 01/21/2016 MONICA ROJAS MD Ot 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, UNSPE 01/21/2016 MONICA ROJAS MD Ot E11.9 TYPE 2 DIABETES MELLITUS WITHOUT COMPLIC 01/21/2016 MONICA ROJAS MD Ot E78.5 HYPERLIPIDEMIA, UNSPECIFIED 01/21/2016 MONICA ROJAS MD Ot I10 ESSENTIAL (PRIMARY) HYPERTENSION 01/21/2016 MONICA ROJAS MD Ot Z79.899 OTHER RETIREMENT (CURRENT) DRUG THERAPY 01/21/2016 MONICA ROJAS MD Ot Z93.3 COLOSTOMY STATUS 01/21/2016 MONICA ROJAS MD Ot Z96.41 PRESENCE OF INSULIN PUMP (EXTERNAL) (INT 01/22/2016 MIO RODRIGUEZ RESTAURANT GREETER Ot C83.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, UNSPECIFI 01/22/2016 MIO RODRIGUEZ S RESTAURANT GREETER Ot C83.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, UNSPECIFI 01/24/2016 MONICA ROJAS MD Ot 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, UNSPE 01/24/2016 MONICA ROJAS MD Ot E11.9 TYPE 2 DIABETES MELLITUS WITHOUT COMPLIC 01/24/2016 MONICA ROJAS MD Ot E78.5 HYPERLIPIDEMIA, UNSPECIFIED 01/24/2016 MONICA ROJAS MD Ot I10 ESSENTIAL (PRIMARY) HYPERTENSION 01/24/2016 MONICA ROJAS MD Ot Z79.899 OTHER RETIREMENT (CURRENT) DRUG THERAPY 01/24/2016 MONICA ROJAS MD Ot Z93.3 COLOSTOMY STATUS 01/24/2016 MONICA ROJAS MD Ot Z96.41 PRESENCE OF INSULIN PUMP (EXTERNAL) (INT 02/21/2016 CAROLE INGRAM MD Ot E78.2 MIXED HYPERLIPIDEMIA 02/21/2016 CAROLE INGRAM MD Ot R01.1 CARDIAC MURMUR, UNSPECIFIED 02/21/2016 CAROLE INGRAM MD Ot R07.9 CHEST PAIN, UNSPECIFIED 02/21/2016 CAROLE INGRAM MD Ot Z82.49 FAMILY HX OF ISCHEM HEART DIS AND OTH DI 02/25/2016 MIO RODRIGUEZ LIZBETH Ot C83.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, UNSPECIFI 03/02/2016 ITALIA BASS MD Ot E11.9 TYPE 2 DIABETES MELLITUS WITHOUT COMPLIC 03/02/2016 ITALIA BASS MD, Ot M54.5 LOW BACK PAIN 03/02/2016 ITALIA BASS MD, Ot Z79.4 GLAZE GRINDER (CURRENT) USE OF INSULIN 03/02/2016 ITALIA BASS MD Ot Z79.82 RETIREMENT (CURRENT) USE OF ASPIRIN 03/02/2016 ITALIA BASS MD, Ot Z79.899 OTHER RETIREMENT (CURRENT) DRUG THERAPY 03/02/2016 ITALIA BASS MD Ot Z85.72 PERSONAL HISTORY OF NON-HODGKIN LYMPHOMA 03/04/2016 MONICA ROJAS MD Ot 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, UNSPE 03/04/2016 MONICA ROJAS MD Ot E11.9 TYPE 2 DIABETES MELLITUS WITHOUT COMPLIC 03/04/2016 MONICA ROJAS MD Ot E78.5 HYPERLIPIDEMIA, UNSPECIFIED 03/04/2016 MONICA ROJAS MD Ot I10 ESSENTIAL (PRIMARY) HYPERTENSION 03/04/2016 MONICA ROJAS MD Ot Z79.899 OTHER RETIREMENT (CURRENT) DRUG THERAPY 03/04/2016 MONICA ROJAS MD Ot Z93.3 COLOSTOMY STATUS 03/04/2016 MONICA ROJAS MD Ot Z96.41 PRESENCE OF INSULIN PUMP (EXTERNAL) (INT 03/05/2016 ITALIA BASS MD Ot E11.9 TYPE 2 DIABETES MELLITUS WITHOUT COMPLIC 03/05/2016 ITALIA BASS MD Ot M54.5 LOW BACK PAIN 03/05/2016 ITALIA BASS MD Ot Z79.4 RETIREMENT (CURRENT) USE OF INSULIN 03/05/2016 ITALIA BASS MD Ot Z79.82 RETIREMENT (CURRENT) USE OF ASPIRIN 03/05/2016 ITALIA BASS MD Ot Z79.899 OTHER RETIREMENT (CURRENT) DRUG THERAPY 03/05/2016 SHELIA JURADO, ITALIA Abdalla Ot Z85.72 PERSONAL HISTORY OF NON-HODGKIN LYMPHOMA 03/13/2016 CAROLE INGRAM MD Ot E78.2 MIXED HYPERLIPIDEMIA 03/13/2016 NATALY JURADO, CAROLE Montoya Ot R01.1 CARDIAC MURMUR, UNSPECIFIED 03/13/2016 CAROLE INGRAM MD J Ot R07.9 CHEST PAIN, UNSPECIFIED 03/13/2016 CAROLE INGRAM MD J Ot Z82.49 FAMILY HX OF ISCHEM HEART DIS AND OTH DI 03/13/2016 MIO RODRIGUEZ RESTAURANT GREETER Ot C83.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, UNSPECIFI 03/19/2016 CAROLE INGRAM MD Ot E78.2 MIXED HYPERLIPIDEMIA 03/19/2016 CAROLE INGRAM MD Ot R01.1 CARDIAC MURMUR, UNSPECIFIED 03/19/2016 CAROLE INGRAM MD Ot R07.9 CHEST PAIN, UNSPECIFIED 03/19/2016 CAROLE INGRAM MD J Ot Z82.49 FAMILY HX OF ISCHEM HEART DIS AND OTH DI 03/19/2016 CAROLE INGRAM MD Ot E78.2 MIXED HYPERLIPIDEMIA 03/19/2016 CAROLE INGRAM MD Ot R01.1 CARDIAC MURMUR, UNSPECIFIED 03/19/2016 CAROLE INGRAM MD Ot R07.9 CHEST PAIN, UNSPECIFIED 03/19/2016 CAROLE INGRAM MD Ot Z82.49 FAMILY HX OF ISCHEM HEART DIS AND OTH DI 03/24/2016 CAROLE INGRAM MD Ot E78.2 MIXED HYPERLIPIDEMIA 03/24/2016 CAROLE INGRAM MD J Ot R01.1 CARDIAC MURMUR, UNSPECIFIED 03/24/2016 CAROLE INGRAM MD J Ot R07.9 CHEST PAIN, UNSPECIFIED 03/24/2016 NATALY JURADO, CAROLE J Ot Z82.49 FAMILY HX OF ISCHEM HEART DIS AND OTH DI 04/13/2016 CAROLE INGRAM MD Ot E78.2 MIXED HYPERLIPIDEMIA 04/13/2016 CAROLE INGRAM MD J Ot R01.1 CARDIAC MURMUR, UNSPECIFIED 04/13/2016 CAROLE INGRAM MD Ot R07.9 CHEST PAIN, UNSPECIFIED 04/13/2016 CAROLE INGRAM MD Ot Z82.49 FAMILY HX OF ISCHEM HEART DIS AND OTH DI 04/22/2016 MONICA ROJAS MD Ot 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, UNSPE 04/22/2016 MONICA ROJAS MD Ot E11.9 TYPE 2 DIABETES MELLITUS WITHOUT COMPLIC 04/22/2016 MONICA ROJAS MD Ot E78.5 HYPERLIPIDEMIA, UNSPECIFIED 04/22/2016 MONICA ORJAS MD Ot I10 ESSENTIAL (PRIMARY) HYPERTENSION 04/22/2016 MONICA ROJAS MD Ot Z79.899 OTHER GLAZE GRINDER (CURRENT) DRUG THERAPY 04/22/2016 MONICA ROJAS MD Ot Z93.3 COLOSTOMY STATUS 04/22/2016 MONICA ROJAS MD Ot Z95.2 PRESENCE OF PROSTHETIC HEART VALVE 04/22/2016 MONICA ROJAS MD Ot Z96.41 PRESENCE OF INSULIN PUMP (EXTERNAL) (INT 04/23/2016 MONICA ROJAS MD Ot 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, UNSPE 04/23/2016 MONICA ROJAS MD Ot E11.9 TYPE 2 DIABETES MELLITUS WITHOUT COMPLIC 04/23/2016 MONICA ROJAS MD Ot E78.5 HYPERLIPIDEMIA, UNSPECIFIED 04/23/2016 MONICA ROJAS MD Ot I10 ESSENTIAL (PRIMARY) HYPERTENSION 04/23/2016 MONICA ROJAS MD Ot Z79.899 OTHER RETIREMENT (CURRENT) DRUG THERAPY 04/23/2016 MONICA ROJAS MD Ot Z93.3 COLOSTOMY STATUS 04/23/2016 MONICA ROJAS MD Ot Z95.2 PRESENCE OF PROSTHETIC HEART VALVE 04/23/2016 MONICA ROJAS MD Ot Z96.41 PRESENCE OF INSULIN PUMP (EXTERNAL) (INT 04/27/2016 CAROLE INGRAM MD Ot E78.2 MIXED HYPERLIPIDEMIA 04/27/2016 CAROLE INGRAM MD Ot R01.1 CARDIAC MURMUR, UNSPECIFIED 04/27/2016 CAROLE INGRAM MD Ot R07.9 CHEST PAIN, UNSPECIFIED 04/27/2016 CAROLE INGRAM MD Ot Z82.49 FAMILY HX OF ISCHEM HEART DIS AND OTH DI 05/22/2016 MONICA ROJAS MD Ot 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, UNSPE 05/22/2016 MONICA ROJAS MD Ot E11.9 TYPE 2 DIABETES MELLITUS WITHOUT COMPLIC 05/22/2016 MONICA ROJAS MD Ot E78.5 HYPERLIPIDEMIA, UNSPECIFIED 05/22/2016 MONICA ROJAS MD Ot I10 ESSENTIAL (PRIMARY) HYPERTENSION 05/22/2016 MONICA ROJAS MD Ot Z79.899 OTHER RETIREMENT (CURRENT) DRUG THERAPY 05/22/2016 MONICA ROJAS MD Ot Z93.3 COLOSTOMY STATUS 05/22/2016 MONICA ROJAS MD Ot Z96.41 PRESENCE OF INSULIN PUMP (EXTERNAL) (INT 06/06/2016 GLORIA CALERO MD Ot E11.649 TYPE 2 DIABETES MELLITUS WITH HYPOGLYCEM 06/06/2016 GLORIA CALERO MD Ot I10 ESSENTIAL (PRIMARY) HYPERTENSION 06/06/2016 GLORIA CALERO MD, Ot Z79.82 GLAZE GRINDER (CURRENT) USE OF ASPIRIN 06/06/2016 GLORIA CALERO MD, Ot Z96.41 PRESENCE OF INSULIN PUMP (EXTERNAL) (INT 06/18/2016 Lindsay CRONIN MD Ot R31.9 HEMATURIA, UNSPECIFIED 06/18/2016 Lindsay CRONIN MD Ot R31.9 HEMATURIA, UNSPECIFIED 06/18/2016 Lindsay CRONIN MD Ot R31.21 ASYMPTOMATIC MICROSCOPIC HEMATURIA 06/18/2016 Lindsay CRONIN MD Ot Z12.5 ENCOUNTER FOR SCREENING FOR MALIGNANT NE 06/19/2016 Lindsay CRONIN MD Ot R31.21 ASYMPTOMATIC MICROSCOPIC HEMATURIA 06/19/2016 Lindsay CRONIN MD Ot Z12.5 ENCOUNTER FOR SCREENING FOR MALIGNANT NE 07/01/2016 MONICA ROJAS MD Ot 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, UNSPE 07/01/2016 MONICA ROJAS MD Ot E11.9 TYPE 2 DIABETES MELLITUS WITHOUT COMPLIC 07/01/2016 MONICA ROJAS MD Ot E78.5 HYPERLIPIDEMIA, UNSPECIFIED 07/01/2016 MONICA ROJAS MD Ot I10 ESSENTIAL (PRIMARY) HYPERTENSION 07/01/2016 MONICA ROJAS MD Ot Z79.899 OTHER GLAZE GRINDER (CURRENT) DRUG THERAPY 07/01/2016 MONICA ROJAS MD Ot Z93.3 COLOSTOMY STATUS 07/01/2016 MONICA ROJAS MD Ot Z96.41 PRESENCE OF INSULIN PUMP (EXTERNAL) (INT 07/09/2016 Lindsay CRONIN MD Ot R31.21 ASYMPTOMATIC MICROSCOPIC HEMATURIA 07/09/2016 Lindsay CRONIN MD NANY Ot Z12.5 ENCOUNTER FOR SCREENING FOR MALIGNANT NE 07/29/2016 MONICA ROJAS MD Ot 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, INTRA-ABD 08/19/2016 MONICA ROJAS MD Ot 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, UNSPE 08/19/2016 MONICA ROJAS MD Ot E11.9 TYPE 2 DIABETES MELLITUS WITHOUT COMPLIC 08/19/2016 MONICA ROJAS MD Ot E78.5 HYPERLIPIDEMIA, UNSPECIFIED 08/19/2016 MONICA ROJAS MD Ot I10 ESSENTIAL (PRIMARY) HYPERTENSION 08/19/2016 MONICA ROJAS MD Ot Z79.899 OTHER GLAZE GRINDER (CURRENT) DRUG THERAPY 08/19/2016 MONICA ROJAS MD Ot Z93.3 COLOSTOMY STATUS 08/19/2016 MONICA ROJAS MD Ot Z96.41 PRESENCE OF INSULIN PUMP (EXTERNAL) (INT 08/19/2016 MONICA ROJAS MD Ot 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, INTRA-ABD 08/20/2016 MONICA ROJAS MD Ot 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, UNSPE 08/20/2016 MONICA ROJAS MD Ot E11.9 TYPE 2 DIABETES MELLITUS WITHOUT COMPLIC 08/20/2016 MONICA ROJAS MD Ot E78.5 HYPERLIPIDEMIA, UNSPECIFIED 08/20/2016 MONICA ROJAS MD Ot I10 ESSENTIAL (PRIMARY) HYPERTENSION 08/20/2016 MONICA ROJAS MD Ot Z79.899 OTHER RETIREMENT (CURRENT) DRUG THERAPY 08/20/2016 MONICA ROJAS MD Ot Z93.3 COLOSTOMY STATUS 08/20/2016 MONICA ROJAS MD Ot Z96.41 PRESENCE OF INSULIN PUMP (EXTERNAL) (INT 08/21/2016 MONICA ROJAS MD Ot 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, INTRA-ABD 08/21/2016 MONICA ROJAS MD Ot 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, INTRA-ABD 09/02/2016 MONICA ROJAS MD Ot 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, UNSPE 09/02/2016 MONICA ROJSA MD Ot E11.9 TYPE 2 DIABETES MELLITUS WITHOUT COMPLIC 09/02/2016 MONICA ROJAS MD Ot E78.5 HYPERLIPIDEMIA, UNSPECIFIED 09/02/2016 OMNICA ROJAS MD Ot I10 ESSENTIAL (PRIMARY) HYPERTENSION 09/02/2016 MONICA ROJAS MD Ot Z79.899 OTHER GLAZE GRINDER (CURRENT) DRUG THERAPY 09/02/2016 MONICA ROJAS MD Ot Z93.3 COLOSTOMY STATUS 09/02/2016 MONICA ROJAS MD Ot Z96.41 PRESENCE OF INSULIN PUMP (EXTERNAL) (INT 09/04/2016 MONICA ROJAS MD Ot 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, INTRA-ABD 09/24/2016 MONICA ROJAS MD Ot 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, UNSPE 09/24/2016 MONICA ROJAS MD Ot E11.9 TYPE 2 DIABETES MELLITUS WITHOUT COMPLIC 09/24/2016 MONICA ROJAS MD Ot E78.5 HYPERLIPIDEMIA, UNSPECIFIED 09/24/2016 MONICA ROJAS MD Ot I10 ESSENTIAL (PRIMARY) HYPERTENSION 09/24/2016 MONICA ROJAS MD Ot Z79.899 OTHER GLAZE GRINDER (CURRENT) DRUG THERAPY 09/24/2016 MONICA ROJAS MD Ot Z93.3 COLOSTOMY STATUS 09/24/2016 MONICA ROJAS MD Ot Z96.41 PRESENCE OF INSULIN PUMP (EXTERNAL) (INT 11/30/2016 MONICA ROJAS MD Ot 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, UNSPE 11/30/2016 MONICA ROJAS MD Ot E11.9 TYPE 2 DIABETES MELLITUS WITHOUT COMPLIC 11/30/2016 MONICA ROJAS MD Ot E78.5 HYPERLIPIDEMIA, UNSPECIFIED 11/30/2016 MONICA ROJAS MD Ot I10 ESSENTIAL (PRIMARY) HYPERTENSION 11/30/2016 MONICA ROJAS MD Ot Z79.899 OTHER GLAZE GRINDER (CURRENT) DRUG THERAPY 11/30/2016 MONICA ROJAS MD Ot Z93.3 COLOSTOMY STATUS 11/30/2016 MONICA ROJAS MD Ot Z96.41 PRESENCE OF INSULIN PUMP (EXTERNAL) (INT 03/24/2017 Davis Caldear W 786.59 OTHER CHEST PAIN 03/24/2017 Davis Caldera R07.81 PLEURODYNIA 03/24/2017 Davis Caldera W 602.1 CONGESTION OR HEMORRHAGE OF PROSTATE 03/24/2017 Davis Caldera W 786.59 OTHER CHEST PAIN 03/24/2017 Davis Caldera N42.1 CONGESTION AND HEMORRHAGE OF PROSTATE 03/24/2017 Davis Caldera R07.81 PLEURODYNIA 03/24/2017 Davis Caldera W 602.1 CONGESTION OR HEMORRHAGE OF PROSTATE 03/24/2017 Davis Caldera W 786.59 OTHER CHEST PAIN 03/24/2017 Davis Caldera N42.1 CONGESTION AND HEMORRHAGE OF PROSTATE 03/24/2017 Davis Caldera W R07.81 PLEURODYNIA 04/12/2017 Davis Caldera W 466.0 ACUTE BRONCHITIS 04/12/2017 Davis Caldera J20.9 ACUTE BRONCHITIS, UNSPECIFIED 04/12/2017 Davis Caldera W 466.0 ACUTE BRONCHITIS 04/12/2017 Davis Caldera J20.9 ACUTE BRONCHITIS, UNSPECIFIED 04/13/2017 Davis Caldera W 276.69 OTHER FLUID OVERLOAD 04/13/2017 Davis Caldera E87.70 FLUID OVERLOAD, UNSPECIFIED 04/13/2017 Davis Caldera W 276.69 OTHER FLUID OVERLOAD 04/13/2017 Davis Caldera E87.70 FLUID OVERLOAD, UNSPECIFIED 07/14/2017 BARTOLO JURADO, NILO Fernandez Ot 388.70 OTALGIA NOS 07/14/2017 BARTOLO JURADO, NILO Fernandez Ot 723.1 CERVICALGIA 07/14/2017 BARTOLO JURADO, NILO Fernandez Ot 787.21 DYSPHAGIA, ORAL PHASE 07/14/2017 KEREN ALBERTO MD Ot 600.00 HYPERTROPHY (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 URI 07/14/2017 KEREN ALBERTO MD Ot V72.63 PRE-PROCEDURAL LABORATORY EXAMINATION 07/14/2017 KEREN ALBERTO MD Ot V72.81 [id number] CARDIOVASCULAR 07/14/2017 KEREN ALBERTO MD Ot V74.8 SCREEN-BACTERIAL DIS NEC 07/14/2017 JENNIFER DOMINGUEZ RUFFLING [employer] Ot 784.2 SWELLING IN HEAD NECK 07/14/2017 KEREN ALBERTO MD Ot 789.09 ABDOMINAL PAIN, OTHER SPECIFIED SITE 07/14/2017 KEREN ALBERTO MD Ot 789.00 ABDOMINAL PAIN, UNSPECIFIED SITE 07/14/2017 KEREN ALBERTO MD Ot V81.5 SCREEN FOR NEPHROPATHY 07/14/2017 DEBORA JURADO, BRANDO Abdalla Ot 791.9 ABN URINE FINDINGS NEC 07/14/2017 Ot 202.80 OTH LYMPHOMAS EXTRANODAL SOLID ORGAN U 07/14/2017 Ot 792.1 ABN FIND- STOOL CONTENTS 07/14/2017 Ot 202.80 OTH LYMPHOMAS EXTRANODAL SOLID ORGAN U 07/14/2017 Ot 792.1 ABN FIND- STOOL CONTENTS 07/14/2017 Ot 153.9 MALIGNANT GEOVANY COLON NOS 07/14/2017 Ot V72.83 EXAM PRE- OPERATIVE NEC 07/14/2017 Ot V74.8 SCREEN- BACTERIAL DIS NEC 07/14/2017 Ot 195.3 MALIGN NEOPL PELVIS 07/14/2017 CRYSTAL JURADO, MONICA Abdalla Ot 200.80 OTHER VARIANTS, EXTRANODAL SOLID ORGAN 07/14/2017 CRYSTAL JURADO, MONICA Abdalla Ot 200.70 LARGE CELL LYMPHOMA, UNSP SITE, EXTRANOD 07/14/2017 NATANAEL GALVAN TRIP RIDER Ot 202.80 OTH LYMPHOMAS EXTRANODAL SOLID ORGAN U 07/14/2017 NATANAEL GALVAN TRIP RIDER Ot 250.00 DIAB GER WO COMPL, TYPE II OR UNSPEC TY 07/14/2017 NATANAEL GALVAN TRIP RIDER Ot 272.4 HYPERLIPIDEMIA NEC/NOS 07/14/2017 NATANAEL GALVAN TRIP RIDER Ot 356.9 IDIO PERIPH NEURPTHY NOS 07/14/2017 NATANAEL GALVAN TRIP RIDER Ot 401.9 HYPERTENSION NOS 07/14/2017 NATANAEL GALVAN TRIP RIDER Ot 564.00 UNSPEC CONSTIPATION 07/14/2017 NATANAEL GALVAN TRIP RIDER Ot 714.0 RHEUMATOID ARTHRITIS 07/14/2017 NATANAEL GALVAN TRIP RIDER Ot V44.3 COLOSTOMY STATUS 07/14/2017 NATANAEL GALVAN TRIP RIDER Ot V45.85 INSULIN PUMP STATUS 07/14/2017 NATANAEL GALVAN TRIP RIDER Ot V58.69 OTH MED,LT,CURRENT USE 07/14/2017 CRYSTAL JURADO, MONICA Abdalla Ot 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, INTRA-ABD 07/14/2017 MONICA ROJAS MD Ot 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, INTRA-ABD 07/14/2017 MONICA ROJAS MD Ot 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, INTRA-ABD 07/14/2017 MONICA ROJAS MD Ot 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, INTRA-ABD 07/14/2017 NATALY JURADO, CAROLE Montoya Ot E11.9 TYPE 2 DIABETES MELLITUS WITHOUT COMPLIC 07/14/2017 CAROLE INGRAM MD Ot E78.2 MIXED HYPERLIPIDEMIA 07/14/2017 CAROLE INGRAM MD Ot I34.0 NONRHEUMATIC MITRAL (VALVE) INSUFFICIENC 07/14/2017 CAROLE INGRAM MD Ot R07.9 CHEST PAIN, UNSPECIFIED 07/14/2017 CAROLE INGRAM MD Ot E11.9 TYPE 2 DIABETES MELLITUS WITHOUT COMPLIC 07/14/2017 CAROLE INGRAM MD Ot E78.2 MIXED HYPERLIPIDEMIA 07/14/2017 CAROLE INGRAM MD Ot I34.0 NONRHEUMATIC MITRAL (VALVE) INSUFFICIENC 07/14/2017 CAROLE INGRAM MD Ot R07.9 CHEST PAIN, UNSPECIFIED 07/14/2017 CRYSTAL JURADO, MONICA Abdalla Ot R10.31 RIGHT LOWER QUADRANT PAIN 07/14/2017 CRYSTAL JURADO, MONICA Abdalla Ot 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, UNSPECIFIED 07/14/2017 Ot C85.10 UNSPECIFIED B-CELL LYMPHOMA, UNSPECIFIED 07/14/2017 MIO RODRIGUEZ APRN Ot C83.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, UNSPECIFI 07/14/2017 CAROLE INGRAM MD Ot E78.2 MIXED HYPERLIPIDEMIA 07/14/2017 CAROLE INGRAM MD Ot R01.1 CARDIAC MURMUR, UNSPECIFIED 07/14/2017 CAROLE INGRAM MD Ot R07.9 CHEST PAIN, UNSPECIFIED 07/14/2017 CAROLE INGRAM MD Ot Z82.49 FAMILY HX OF ISCHEM HEART DIS AND OTH DI 07/14/2017 CAROLE INGRAM MD Ot E78.2 MIXED HYPERLIPIDEMIA 07/14/2017 CAROLE INGRAM MD Ot R01.1 CARDIAC MURMUR, UNSPECIFIED 07/14/2017 CAROLE INGRAM MD Ot R07.9 CHEST PAIN, UNSPECIFIED 07/14/2017 CAROLE INGRAM MD Ot Z82.49 FAMILY HX OF ISCHEM HEART DIS AND OTH DI 07/14/2017 MEHRDAD JURADO, Lindsay AYON Ot R31.21 ASYMPTOMATIC MICROSCOPIC HEMATURIA 07/14/2017 MEHRDAD JURADO, Lindsay AYON Ot Z12.5 ENCOUNTER FOR SCREENING FOR MALIGNANT NE 07/14/2017 CRYSTAL JURADO, MONICA Abdalla Ot 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, INTRA-ABD 07/14/2017 MONICA ROJAS MD Ot 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, UNSPE 07/14/2017 MONICA ROJAS MD Ot E11.9 TYPE 2 DIABETES MELLITUS WITHOUT COMPLIC 07/14/2017 MONICA ROJAS MD Ot E78.5 HYPERLIPIDEMIA, UNSPECIFIED 07/14/2017 MONICA ROJAS MD Ot I10 ESSENTIAL (PRIMARY) HYPERTENSION 07/14/2017 MONICA ROJAS MD Ot Z79.899 OTHER GLAZE GRINDER (CURRENT) DRUG THERAPY 07/14/2017 MONICA ROJAS MD Ot Z93.3 COLOSTOMY STATUS 07/14/2017 MONICA ROJAS MD Ot Z96.41 PRESENCE OF INSULIN PUMP (EXTERNAL) (INT 07/14/2017 NILO MCFARLAND MD Ot 388.70 OTALGIA NOS 07/14/2017 NILO MCFARLAND MD Ot 723.1 CERVICALGIA 07/14/2017 NILO MCFARLAND MD Ot 787.21 DYSPHAGIA, ORAL PHASE 07/14/2017 KEREN ALBERTO MD Ot 600.00 HYPERTROPHY (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 URI 07/14/2017 KEREN ALBERTO MD Ot V72.63 PRE-PROCEDURAL LABORATORY EXAMINATION 07/14/2017 KEREN ALBERTO MD Ot V72.81 CLBD-FBU-SUSRWFGMS CARDIOVASCULAR 07/14/2017 KEREN ALBERTO MD Ot V74.8 SCREEN-BACTERIAL DIS NEC 07/14/2017 JENNIFER DOMINGUEZ RU[employer]LING [employer] Ot 784.2 SWELLING IN HEAD NECK 07/14/2017 KEREN ALBERTO MD Ot 789.09 ABDOMINAL PAIN, OTHER SPECIFIED SITE 07/14/2017 KEREN ALBERTO MD Ot 789.00 ABDOMINAL PAIN, UNSPECIFIED SITE 07/14/2017 KEREN ALBERTO MD Ot V81.5 SCREEN FOR NEPHROPATHY 07/14/2017 BRANDO CAZARES MD Ot 791.9 ABN URINE FINDINGS NEC 07/14/2017 Ot 202.80 OTH LYMPHOMAS EXTRANODAL SOLID ORGAN U 07/14/2017 Ot 792.1 ABN FIND- STOOL CONTENTS 07/14/2017 Ot 202.80 OTH LYMPHOMAS EXTRANODAL SOLID ORGAN U 07/14/2017 Ot 792.1 ABN FIND- STOOL CONTENTS 07/14/2017 Ot 153.9 MALIGNANT GEOVANY COLON NOS 07/14/2017 Ot V72.83 EXAM PRE- OPERATIVE NEC 07/14/2017 Ot V74.8 SCREEN- BACTERIAL DIS NEC 07/14/2017 Ot 195.3 MALIGN NEOPL PELVIS 07/14/2017 CRYSTAL JURADO, MONICA Abdalla Ot 200.80 OTHER VARIANTS, EXTRANODAL SOLID ORGAN 07/14/2017 CRYSTAL JURADO, MONICA Abdalla Ot 200.70 LARGE CELL LYMPHOMA, UNSP SITE, EXTRANOD 07/14/2017 NATANAEL GALVAN TRIP RIDER Ot 202.80 OTH LYMPHOMAS EXTRANODAL SOLID ORGAN U 07/14/2017 NATANAEL GALVAN TRIP RIDER Ot 250.00 DIAB GER WO COMPL, TYPE II OR UNSPEC TY 07/14/2017 NATANAEL GALVAN TRIP RIDER Ot 272.4 HYPERLIPIDEMIA NEC/NOS 07/14/2017 NATANAEL GALVAN TRIP RIDER Ot 356.9 IDIO PERIPH NEURPTHY NOS 07/14/2017 NATANAEL GALVAN TRIP RIDER Ot 401.9 HYPERTENSION NOS 07/14/2017 NATANAEL GALVAN TRIP RIDER Ot 564.00 UNSPEC CONSTIPATION 07/14/2017 NATANAEL GALVAN TRIP RIDER Ot 714.0 RHEUMATOID ARTHRITIS 07/14/2017 NATANAEL GALVAN TRIP RIDER Ot V44.3 COLOSTOMY STATUS 07/14/2017 NATANAEL GALVAN TRIP RIDER Ot V45.85 INSULIN PUMP STATUS 07/14/2017 NATANAEL GALVAN TRIP RIDER Ot V58.69 OTH MED,LT,CURRENT USE 07/14/2017 CRYSTAL JURADO, MONICA Abdalla Ot 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9 TYPE 2 DIABETES MELLITUS WITHOUT COMPLIC 07/14/2017 CAROLE INGRAM MD Ot E78.2 MIXED HYPERLIPIDEMIA 07/14/2017 CAROLE INGRAM MD Ot I34.0 NONRHEUMATIC MITRAL (VALVE) INSUFFICIENC 07/14/2017 CAROLE INGRAM MD Ot R07.9 CHEST PAIN, UNSPECIFIED 07/14/2017 CAROLE INGRAM MD Ot E11.9 TYPE 2 DIABETES MELLITUS WITHOUT COMPLIC 07/14/2017 CAROLE INGRAM MD Ot E78.2 MIXED HYPERLIPIDEMIA 07/14/2017 CAROLE INGRAM MD Ot I34.0 NONRHEUMATIC MITRAL (VALVE) INSUFFICIENC 07/14/2017 CAROLE INGRAM MD Ot R07.9 CHEST PAIN, UNSPECIFIED 07/14/2017 MONICA ROJAS MD Ot R10.31 RIGHT LOWER QUADRANT PAIN 07/14/2017 MONICA ROJAS MD Ot 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, UNSPECIFIED 07/14/2017 Ot C85.10 UNSPECIFIED B-CELL LYMPHOMA, UNSPECIFIED 07/14/2017 MIO RODRIGUEZ RESTAURANT GREETER Ot C83.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, UNSPECIFI 07/14/2017 CAROLE INGRAM MD Ot E78.2 MIXED HYPERLIPIDEMIA 07/14/2017 CAROLE INGRAM MD Ot R01.1 CARDIAC MURMUR, UNSPECIFIED 07/14/2017 CAROLE INGRAM MD Ot R07.9 CHEST PAIN, UNSPECIFIED 07/14/2017 CAROLE INGRAM MD Ot Z82.49 FAMILY HX OF ISCHEM HEART DIS AND OTH DI 07/14/2017 CAROLE INGRAM MD Ot E78.2 MIXED HYPERLIPIDEMIA 07/14/2017 CAROEL INGRAM MD Ot R01.1 CARDIAC MURMUR, UNSPECIFIED 07/14/2017 CAROLE INGRAM MD Ot R07.9 CHEST PAIN, UNSPECIFIED 07/14/2017 CAROLE INGRAM MD Ot Z82.49 FAMILY HX OF ISCHEM HEART DIS AND OTH DI 07/14/2017 MEHRDAD JURADO, Lindsay AYON Ot R31.21 ASYMPTOMATIC MICROSCOPIC HEMATURIA 07/14/2017 Lindsay CRONIN MD Ot Z12.5 ENCOUNTER FOR SCREENING FOR MALIGNANT NE 07/14/2017 MONICA ROJAS MD Ot 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, INTRA-ABD 07/14/2017 MONICA ROJAS MD Ot 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, UNSPE 07/14/2017 MONICA ROJAS MD Ot E11.9 TYPE 2 DIABETES MELLITUS WITHOUT COMPLIC 07/14/2017 MONICA ROJAS MD Ot E78.5 HYPERLIPIDEMIA, UNSPECIFIED 07/14/2017 MONICA ROJAS MD Ot I10 ESSENTIAL (PRIMARY) HYPERTENSION 07/14/2017 CRYSTAL JURADO, MONICA Abdalla Ot Z79.899 OTHER GLAZE GRINDER (CURRENT) DRUG THERAPY 07/14/2017 MONICA ROJAS MD Ot Z93.3 COLOSTOMY STATUS 07/14/2017 MONICA ROJAS MD Ot Z96.41 PRESENCE OF INSULIN PUMP (EXTERNAL) (INT 07/14/2017 NILO MCFARLAND MD Ot 388.70 OTALGIA NOS 07/14/2017 NILO MCFARLAND MD Ot 723.1 CERVICALGIA 07/14/2017 NILO MCFARLAND MD Ot 787.21 DYSPHAGIA, ORAL PHASE 07/14/2017 KEREN ALBERTO MD Ot 600.00 HYPERTROPHY (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 URI 07/14/2017 KEREN ALBERTO MD Ot V72.63 PRE-PROCEDURAL LABORATORY EXAMINATION 07/14/2017 KEREN ALBERTO MD Ot V72.81 ZILP-NAM-NTXFMNTLJ CARDIOVASCULAR 07/14/2017 KEREN ALBERTO MD Ot V74.8 SCREEN-BACTERIAL DIS NEC 07/14/2017 JENNIFER DOMINGUEZ [employer] Ot 784.2 SWELLING IN HEAD NECK 07/14/2017 KEREN ALBERTO MD Ot 789.09 ABDOMINAL PAIN, OTHER SPECIFIED SITE 07/14/2017 KEREN ALBERTO MD Ot 789.00 ABDOMINAL PAIN, UNSPECIFIED SITE 07/14/2017 KEREN ALBERTO MD Ot V81.5 SCREEN FOR NEPHROPATHY 07/14/2017 BRANDO CAZARES MD Ot 791.9 ABN URINE FINDINGS NEC 07/14/2017 Ot 202.80 OTH LYMPHOMAS EXTRANODAL SOLID ORGAN U 07/14/2017 Ot 792.1 ABN FIND- STOOL CONTENTS 07/14/2017 Ot 202.80 OTH LYMPHOMAS EXTRANODAL SOLID ORGAN U 07/14/2017 Ot 792.1 ABN FIND- STOOL CONTENTS 07/14/2017 Ot 153.9 MALIGNANT GEOVANY COLON NOS 07/14/2017 Ot V72.83 EXAM PRE- OPERATIVE NEC 07/14/2017 Ot V74.8 SCREEN- BACTERIAL DIS NEC 07/14/2017 Ot 195.3 MALIGN NEOPL PELVIS 07/14/2017 MONICA ROJAS MD Ot 200.80 OTHER VARIANTS, EXTRANODAL SOLID ORGAN 07/14/2017 CRYSTAL JURADO, MONICA Abdalla Ot 200.70 LARGE CELL LYMPHOMA, UNSP SITE, EXTRANOD 07/14/2017 GALVANNATANAEL Marquez TRIP RIDER Ot 202.80 OTH LYMPHOMAS EXTRANODAL SOLID ORGAN U 07/14/2017 GALVANNATANAEL Marquez TRIP RIDER Ot 250.00 DIAB GER WO COMPL, TYPE II OR UNSPEC TY 07/14/2017 MANDY NATANAEL Marquez TRIP RIDER Ot 272.4 HYPERLIPIDEMIA NEC/NOS 07/14/2017 MANDY NATANAEL Marquez TRIP RIDER Ot 356.9 IDIO PERIPH NEURPTHY NOS 07/14/2017 GALVAN NATANAEL Marquez TRIP RIDER Ot 401.9 HYPERTENSION NOS 07/14/2017 MANDY NATANAEL Marquez TRIP RIDER Ot 564.00 UNSPEC CONSTIPATION 07/14/2017 MANDY NATANAEL Marquez TRIP RIDER Ot 714.0 RHEUMATOID ARTHRITIS 07/14/2017 MANDY NATANAEL Marquez TRIP RIDER Ot V44.3 COLOSTOMY STATUS 07/14/2017 MANDY NATANAEL Marquez TRIP RIDER Ot V45.85 INSULIN PUMP STATUS 07/14/2017 MANDY NATANAEL Marquez TRIP RIDER Ot V58.69 OTH MED,LT,CURRENT USE 07/14/2017 CRYSTAL JURADO, MONICA Abdalla Ot 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, INTRA-ABD 07/14/2017 CRYSTAL JURADO, MONICA Abdalla Ot 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, INTRA-ABD 07/14/2017 CRYSTAL JURADO, MONICA Abdalla Ot 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, INTRA-ABD 07/14/2017 CYRSTAL JURADO, MONICA Abdalla Ot 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9 TYPE 2 DIABETES MELLITUS WITHOUT COMPLIC 07/14/2017 CAROLE INGRAM MD Ot E78.2 MIXED HYPERLIPIDEMIA 07/14/2017 CAROLE INGRAM MD Ot I34.0 NONRHEUMATIC MITRAL (VALVE) INSUFFICIENC 07/14/2017 CAROLE INGRAM MD Ot R07.9 CHEST PAIN, UNSPECIFIED 07/14/2017 CAROLE INGRAM MD Ot E11.9 TYPE 2 DIABETES MELLITUS WITHOUT COMPLIC 07/14/2017 CAROLE INGRAM MD Ot E78.2 MIXED HYPERLIPIDEMIA 07/14/2017 CAROLE INGRAM MD Ot I34.0 NONRHEUMATIC MITRAL (VALVE) INSUFFICIENC 07/14/2017 NATALY JURADO, CAROLE Montoya Ot R07.9 CHEST PAIN, UNSPECIFIED 07/14/2017 MONICA ROJAS MD Ot R10.31 RIGHT LOWER QUADRANT PAIN 07/14/2017 MONICA ROJAS MD Ot 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, UNSPECIFIED 07/14/2017 Ot C85.10 UNSPECIFIED B-CELL LYMPHOMA, UNSPECIFIED 07/14/2017 MIO RODRIGUEZ RESTAURANT GREETER Ot C83.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, UNSPECIFI 07/14/2017 CAROLE INGRAM MD Ot E78.2 MIXED HYPERLIPIDEMIA 07/14/2017 CAROLE INGRAM MD Ot R01.1 CARDIAC MURMUR, UNSPECIFIED 07/14/2017 CAROLE INGRAM MD Ot R07.9 CHEST PAIN, UNSPECIFIED 07/14/2017 CAROLE INGRAM MD Ot Z82.49 FAMILY HX OF ISCHEM HEART DIS AND OTH DI 07/14/2017 CAROLE INGRAM MD Ot E78.2 MIXED HYPERLIPIDEMIA 07/14/2017 CAROLE INGRAM MD Ot R01.1 CARDIAC MURMUR, UNSPECIFIED 07/14/2017 CAROLE INGRAM MD Ot R07.9 CHEST PAIN, UNSPECIFIED 07/14/2017 CAROLE INGRAM MD Ot Z82.49 FAMILY HX OF ISCHEM HEART DIS AND OTH DI 07/14/2017 MEHRDAD JURADO, Lindsay AYON Ot R31.21 ASYMPTOMATIC MICROSCOPIC HEMATURIA 07/14/2017 MEHRDAD JURADO, Lindsay AYON Ot Z12.5 ENCOUNTER FOR SCREENING FOR MALIGNANT NE 07/14/2017 MONICA ROJAS MD Ot 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, INTRA-ABD 07/14/2017 MONICA ROJAS MD Ot C85.80 OT TYPES OF NON-HODGKIN LYMPHOMA, UNSPE 07/14/2017 MONICA ROJAS MD Ot E11.9 TYPE 2 DIABETES MELLITUS WITHOUT COMPLIC 07/14/2017 MONICA ROJAS MD Ot E78.5 HYPERLIPIDEMIA, UNSPECIFIED 07/14/2017 MONICA ROJAS MD Ot I10 ESSENTIAL (PRIMARY) HYPERTENSION 07/14/2017 MONICA ROJAS MD Ot Z79.899 OTHER RETIREMENT (CURRENT) DRUG THERAPY 07/14/2017 MONICA ROJAS MD Ot Z93.3 COLOSTOMY STATUS 07/14/2017 CRYSTAL JURADO, MONICA Abdalla Ot Z96.41 PRESENCE OF INSULIN PUMP (EXTERNAL) (INT 07/14/2017 BARTOLO JURADO, NILO Fernandez Ot 388.70 OTALGIA NOS 07/14/2017 BARTOLO JURADO, NILO Fernandez Ot 723.1 CERVICALGIA 07/14/2017 BARTOLO JURADO, NILO Fernandez Ot 787.21 DYSPHAGIA, ORAL PHASE 07/14/2017 KEREN ALBERTO MD Ot 600.00 HYPERTROPHY (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 URI 07/14/2017 KEREN ALBERTO MD Ot V72.63 PRE-PROCEDURAL LABORATORY EXAMINATION 07/14/2017 KEREN ALBERTO MD Ot V72.81 [id number] CARDIOVASCULAR 07/14/2017 KEREN ALBERTO MD Ot V74.8 SCREEN-BACTERIAL DIS NEC 07/14/2017 JENNIFER DOMINGUEZ [employer] Ot 784.2 SWELLING IN HEAD NECK 07/14/2017 KEREN ALBERTO MD Ot 789.09 ABDOMINAL PAIN, OTHER SPECIFIED SITE 07/14/2017 KEREN ALBERTO MD Ot 789.00 ABDOMINAL PAIN, UNSPECIFIED SITE 07/14/2017 KEREN ALBERTO MD Ot V81.5 SCREEN FOR NEPHROPATHY 07/14/2017 DEBORA JURADO, BRANDO Abdalla Ot 791.9 ABN URINE FINDINGS NEC 07/14/2017 Ot 202.80 OTH LYMPHOMAS EXTRANODAL SOLID ORGAN U 07/14/2017 Ot 792.1 ABN FIND- STOOL CONTENTS 07/14/2017 Ot 202.80 OTH LYMPHOMAS EXTRANODAL SOLID ORGAN U 07/14/2017 Ot 792.1 ABN FIND- STOOL CONTENTS 07/14/2017 Ot 153.9 MALIGNANT GEOVANY COLON NOS 07/14/2017 Ot V72.83 EXAM PRE- OPERATIVE NEC 07/14/2017 Ot V74.8 SCREEN- BACTERIAL DIS NEC 07/14/2017 Ot 195.3 MALIGN NEOPL PELVIS 07/14/2017 CRYSTAL JURADO, MONICA Abdalla Ot 200.80 OTHER VARIANTS, EXTRANODAL SOLID ORGAN 07/14/2017 MONICA ROJAS MD Ot 200.70 LARGE CELL LYMPHOMA, UNSP SITE, EXTRANOD 07/14/2017 NATANAEL GALVAN TRIP RIDER Ot 202.80 OTH LYMPHOMAS EXTRANODAL SOLID ORGAN U 07/14/2017 NATANAEL GALVAN TRIP RIDER Ot 250.00 DIAB GER WO COMPL, TYPE II OR UNSPEC TY 07/14/2017 NATANAEL GALVAN TRIP RIDER Ot 272.4 HYPERLIPIDEMIA NEC/NOS 07/14/2017 NATANAEL GALVAN TRIP RIDER Ot 356.9 IDIO PERIPH NEURPTHY NOS 07/14/2017 NATANAEL GALVAN TRIP RIDER Ot 401.9 HYPERTENSION NOS 07/14/2017 NATANAEL GALVAN TRIP RIDER Ot 564.00 UNSPEC CONSTIPATION 07/14/2017 NATANAEL GALVAN TRIP RIDER Ot 714.0 RHEUMATOID ARTHRITIS 07/14/2017 NATANAEL GALVAN TRIP RIDER Ot V44.3 COLOSTOMY STATUS 07/14/2017 NATANAEL GALVAN TRIP RIDER Ot V45.85 INSULIN PUMP STATUS 07/14/2017 NATANAEL GALVAN TRIP RIDER Ot V58.69 OT MED,LT,CURRENT USE 07/14/2017 CRYSTAL JURADO, MONICA Abdalla Ot 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, INTRA-ABD 07/14/2017 MONICA ROJAS MD Ot 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9 TYPE 2 DIABETES MELLITUS WITHOUT COMPLIC 07/14/2017 CAROLE INGRAM MD Ot E78.2 MIXED HYPERLIPIDEMIA 07/14/2017 CAROLE INGRAM MD Ot I34.0 NONRHEUMATIC MITRAL (VALVE) INSUFFICIENC 07/14/2017 CAROLE INGRAM MD Ot R07.9 CHEST PAIN, UNSPECIFIED 07/14/2017 CAROLE INGRAM MD Ot E11.9 TYPE 2 DIABETES MELLITUS WITHOUT COMPLIC 07/14/2017 CAROLE INGRAM MD Ot E78.2 MIXED HYPERLIPIDEMIA 07/14/2017 CAROLE INGRAM MD Ot I34.0 NONRHEUMATIC MITRAL (VALVE) INSUFFICIENC 07/14/2017 CAROLE INGRAM MD Ot R07.9 CHEST PAIN, UNSPECIFIED 07/14/2017 MONICA ROJAS MD Ot R10.31 RIGHT LOWER QUADRANT PAIN 07/14/2017 MONICA ROJAS MD Ot 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, UNSPECIFIED 07/14/2017 Ot C85.10 UNSPECIFIED B-CELL LYMPHOMA, UNSPECIFIED 07/14/2017 MIO RODRIGUEZ [employer]AUR[employer] GREETER Ot C83.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, UNSPECIFI 07/14/2017 CAROLE INGRAM MD Ot E78.2 MIXED HYPERLIPIDEMIA 07/14/2017 CAROLE INGRAM MD Ot R01.1 CARDIAC MURMUR, UNSPECIFIED 07/14/2017 CAROLE INGRAM MD Ot R07.9 CHEST PAIN, UNSPECIFIED 07/14/2017 CAROLE INGRAM MD Ot Z82.49 FAMILY HX OF ISCHEM HEART DIS AND OTH DI 07/14/2017 CAROLE INGRAM MD Ot E78.2 MIXED HYPERLIPIDEMIA 07/14/2017 CAROLE INGRAM MD Ot R01.1 CARDIAC MURMUR, UNSPECIFIED 07/14/2017 CAROLE INGRAM MD Ot R07.9 CHEST PAIN, UNSPECIFIED 07/14/2017 CAROLE INGRAM MD Ot Z82.49 FAMILY HX OF ISCHEM HEART DIS AND OTH DI 07/14/2017 MEHRDAD JURADO, Lindsay AYON Ot R31.21 ASYMPTOMATIC MICROSCOPIC HEMATURIA 07/14/2017 MEHRDAD JURADO, Lindsay AYON Ot Z12.5 ENCOUNTER FOR SCREENING FOR MALIGNANT NE 07/14/2017 MONICA ROJAS MD Ot 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, INTRA-ABD 07/14/2017 MONICA ROJAS MD Ot C85.80 OT TYPES OF NON-HODGKIN LYMPHOMA, UNSPE 07/14/2017 MONICA ROJAS MD Ot E11.9 TYPE 2 DIABETES MELLITUS WITHOUT COMPLIC 07/14/2017 MONICA ROJAS MD Ot E78.5 HYPERLIPIDEMIA, UNSPECIFIED 07/14/2017 MONICA ROJAS MD Ot I10 ESSENTIAL (PRIMARY) HYPERTENSION 07/14/2017 MONICA ROJAS MD Ot Z79.899 OTHER RETIREMENT (CURRENT) DRUG THERAPY 07/14/2017 MONICA ROJAS MD Ot Z93.3 COLOSTOMY STATUS 07/14/2017 MONICA ROJAS MD Ot Z96.41 PRESENCE OF INSULIN PUMP (EXTERNAL) (INT 07/14/2017 MONICA ROJAS MD Ot C85.80 OT TYPES OF NON-HODGKIN LYMPHOMA, UNSPE 07/14/2017 CRYSTAL MD, MONICA K Ot E11.9 TYPE 2 DIABETES MELLITUS WITHOUT COMPLIC 07/14/2017 MONICA ROJAS MD Ot E78.5 HYPERLIPIDEMIA, UNSPECIFIED 07/14/2017 MONICA ROJAS MD Ot I10 ESSENTIAL (PRIMARY) HYPERTENSION 07/14/2017 MONICA ROJAS MD Ot Z79.899 OTHER RETIREMENT (CURRENT) DRUG THERAPY 07/14/2017 MONICA ROJAS MD Ot Z93.3 COLOSTOMY STATUS 07/14/2017 MONICA ROJAS MD Ot Z96.41 PRESENCE OF INSULIN PUMP (EXTERNAL) (INT 07/15/2017 CAROLE INGRAM MD Ot E11.9 TYPE 2 DIABETES MELLITUS WITHOUT COMPLIC 07/15/2017 CAROLE INGRAM MD, Ot I34.0 NONRHEUMATIC MITRAL (VALVE) INSUFFICIENC 07/15/2017 CAROLE INGRAM MD Ot I34.1 NONRHEUMATIC MITRAL (VALVE) PROLAPSE 07/15/2017 CAROLE INGRAM MD Ot I50.9 HEART FAILURE, UNSPECIFIED 07/15/2017 CAROLE INGRAM MD Ot R82.90 UNSPECIFIED ABNORMAL FINDINGS IN URINE 07/15/2017 CAROLE INGRAM MD Ot Z11.2 ENCOUNTER FOR SCREENING FOR OTHER BACTER 07/15/2017 CAROLE INGRAM MD Ot Z53.9 PROCEDURE AND TREATMENT NOT CARRIED OUT, 07/15/2017 CAROLE INGRAM MD, Ot Z88.8 ALLERGY STATUS TO [facility] DRUG/MEDS/BIOL SUB 07/28/2017 NILO MCFARLAND MD Ot 388.70 OTALGIA NOS 07/28/2017 NILO MCFARLAND MD Ot 723.1 CERVICALGIA 07/28/2017 NILO MCFARLAND MD Ot 787.21 DYSPHAGIA, ORAL PHASE 07/28/2017 KEREN ALBERTO MD Ot 600.00 HYPERTROPHY (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 URI 07/28/2017 KEREN ALBERTO MD Ot V72.63 PRE-PROCEDURAL LABORATORY EXAMINATION 07/28/2017 KEREN ALBERTO MD Ot V72.81 [id number] CARDIOVASCULAR 07/28/2017 KEREN ALBERTO MD Ot V74.8 SCREEN-BACTERIAL DIS NEC 07/28/2017 JENNIFER DOMINGUEZ Ot 784.2 SWELLING IN HEAD NECK 07/28/2017 DOLLY MD, KEREN A Ot 789.09 ABDOMINAL PAIN, OTHER SPECIFIED SITE 07/28/2017 DOLLY JURADO, KEREN [place] Ot 789.00 ABDOMINAL PAIN, UNSPECIFIED SITE 07/28/2017 DOLLY JURADO, KEREN [place] Ot V81.5 SCREEN FOR NEPHROPATHY 07/28/2017 BRANDO CAZARES MD Ot 791.9 ABN URINE FINDINGS NEC 07/28/2017 Ot 202.80 OTH LYMPHOMAS EXTRANODAL SOLID ORGAN U 07/28/2017 Ot 792.1 ABN FIND- STOOL CONTENTS 07/28/2017 Ot 202.80 OTH LYMPHOMAS EXTRANODAL SOLID ORGAN U 07/28/2017 Ot 792.1 ABN FIND- STOOL CONTENTS 07/28/2017 Ot 153.9 MALIGNANT GEOVANY COLON NOS 07/28/2017 Ot V72.83 EXAM PRE- OPERATIVE NEC 07/28/2017 Ot V74.8 SCREEN- BACTERIAL DIS NEC 07/28/2017 Ot 195.3 MALIGN NEOPL PELVIS 07/28/2017 CRYSTAL JURADO, MONICA Abdalla Ot 200.80 OTHER VARIANTS, EXTRANODAL SOLID ORGAN 07/28/2017 CRYSTAL JURADO, MONICA Abdalla Ot 200.70 LARGE CELL LYMPHOMA, UNSP SITE, EXTRANOD 07/28/2017 NATANAEL GALVAN TRIP RIDER Ot 202.80 OTH LYMPHOMAS EXTRANODAL SOLID ORGAN U 07/28/2017 NATANAEL GALVAN TRIP RIDER Ot 250.00 DIAB GER WO COMPL, TYPE II OR UNSPEC TY 07/28/2017 NATANAEL GALVAN TRIP RIDER Ot 272.4 HYPERLIPIDEMIA NEC/NOS 07/28/2017 NATANAEL GALVAN TRIP RIDER Ot 356.9 IDIO PERIPH NEURPTHY NOS 07/28/2017 NATANAEL GALVAN TRIP RIDER Ot 401.9 HYPERTENSION NOS 07/28/2017 NATANAEL GALVAN TRIP RIDER Ot 564.00 UNSPEC CONSTIPATION 07/28/2017 NATANAEL GALVAN TRIP RIDER Ot 714.0 RHEUMATOID ARTHRITIS 07/28/2017 NATANAEL GALVAN TRIP RIDER Ot V44.3 COLOSTOMY STATUS 07/28/2017 NATANAEL GALVAN TRIP RIDER Ot V45.85 INSULIN PUMP STATUS 07/28/2017 NATANAEL GALVAN TRIP RIDER Ot V58.69 OTH MED,LT,CURRENT USE 07/28/2017 CRYSTAL JURADO, MONICA Abdalla Ot 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, INTRA-ABD 07/28/2017 CRYSTAL JURADO, MONICA Abdalla Ot 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, INTRA-ABD 07/28/2017 CRYSTAL JURADO, MONICA Abdalla Ot 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, INTRA-ABD 07/28/2017 MONICA ROJAS MD Ot 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, INTRA-ABD 07/28/2017 CAROLE INGRAM MD Ot E11.9 TYPE 2 DIABETES MELLITUS WITHOUT COMPLIC 07/28/2017 CAROLE INGRAM MD Ot E78.2 MIXED HYPERLIPIDEMIA 07/28/2017 CAROLE INGRAM MD Ot I34.0 NONRHEUMATIC MITRAL (VALVE) INSUFFICIENC 07/28/2017 CAROLE INGRAM MD Ot R07.9 CHEST PAIN, UNSPECIFIED 07/28/2017 CAROLE INGRAM MD Ot E11.9 TYPE 2 DIABETES MELLITUS WITHOUT COMPLIC 07/28/2017 CAROLE INGRAM MD Ot E78.2 MIXED HYPERLIPIDEMIA 07/28/2017 CAROLE INGRAM MD Ot I34.0 NONRHEUMATIC MITRAL (VALVE) INSUFFICIENC 07/28/2017 CAROLE INGRAM MD Ot R07.9 CHEST PAIN, UNSPECIFIED 07/28/2017 CRYSTAL JURADO, MONICA Abdalla Ot R10.31 RIGHT LOWER QUADRANT PAIN 07/28/2017 MONICA ROJAS MD Ot 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, UNSPECIFIED 07/28/2017 Ot C85.10 UNSPECIFIED B-CELL LYMPHOMA, UNSPECIFIED 07/28/2017 MIO RODRIGUEZ [employer] Ot C83.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, UNSPECIFI 07/28/2017 CAROLE INGRAM MD Ot E78.2 MIXED HYPERLIPIDEMIA 07/28/2017 CAROLE INGRAM MD Ot R01.1 CARDIAC MURMUR, UNSPECIFIED 07/28/2017 CAROLE INGRAM MD Ot R07.9 CHEST PAIN, UNSPECIFIED 07/28/2017 CAROLE INGRAM MD Ot Z82.49 FAMILY HX OF ISCHEM HEART DIS AND OTH DI 07/28/2017 CAROLE INGRAM MD Ot E78.2 MIXED HYPERLIPIDEMIA 07/28/2017 CAROLE INGRAM MD Ot R01.1 CARDIAC MURMUR, UNSPECIFIED 07/28/2017 CAROLE INGRAM MD Ot R07.9 CHEST PAIN, UNSPECIFIED 07/28/2017 CAROLE INGRAM MD Ot Z82.49 FAMILY HX OF ISCHEM HEART DIS AND OTH DI 07/28/2017 Lindsay CRONIN MD Ot R31.21 ASYMPTOMATIC MICROSCOPIC HEMATURIA 07/28/2017 Lindsay CRONIN MD Ot Z12.5 ENCOUNTER FOR SCREENING FOR MALIGNANT NE 07/28/2017 MONICA ROJAS MD Ot 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3 COMB RHEUMATIC DISORD OF MITRAL, AORTIC 07/28/2017 CAROLE INGRAM MD Ot I50.9 HEART FAILURE, UNSPECIFIED 07/28/2017 CAROLE INGRAM MD Ot R06.09 OTHER FORMS OF DYSPNEA 07/28/2017 CAROLE INGRAM MD Ot R07.89 OTHER CHEST PAIN 07/28/2017 CAROLE INGRAM MD Ot E11.9 TYPE 2 DIABETES MELLITUS WITHOUT COMPLIC 07/28/2017 CAROLE INGRAM MD Ot I34.0 NONRHEUMATIC MITRAL (VALVE) INSUFFICIENC 07/28/2017 CAROLE INGRAM MD Ot I34.1 NONRHEUMATIC MITRAL (VALVE) PROLAPSE 07/28/2017 CAROLE INGRAM MD Ot I50.9 HEART FAILURE, UNSPECIFIED 07/28/2017 CAROLE INGRAM MD Ot R82.90 UNSPECIFIED ABNORMAL FINDINGS IN URINE 07/28/2017 CAROLE INGRAM MD Ot Z11.2 ENCOUNTER FOR SCREENING FOR OTHER BACTER 07/28/2017 NATALY JURADO, CAROLE Montoya Ot Z53.9 PROCEDURE AND TREATMENT NOT CARRIED OUT, 07/28/2017 NATALY JURADO, CAROLE Montoya Ot Z88.8 ALLERGY STATUS TO [facility] DRUG/MEDS/BIOL SUB Procedures Code Description Performed By Performed On 54.24 PERCUTAN NEEDLE BX OF INTRA- ABDOMINAL MA 04/19/2014 57.32 CYSTOSCOPY NEC 04/19/2014 57.94 INSERT INDWELLING CATH 04/19/2014 Results Test Result Range Complete urinalysis with reflex to culture - 03/02/16 14:39 Urine color determination YELLOW NRG Urine clarity determination CLEAR NRG Urine pH measurement by test strip 7 5-9 Specific gravity of urine by test strip 1.010 1.016- 1.022 Urine protein assay by test strip, semi-quantitative 2+ NEGATIVE Urine glucose detection by automated test strip 3+ NEGATIVE Erythrocytes detection in urine sediment by light microscopy 2+ NEGATIVE Urine ketones detection by automated test strip NEGATIVE NEGATIVE Urine nitrite detection by test strip NEGATIVE NEGATIVE Urine total bilirubin detection by test strip NEGATIVE NEGATIVE Urine urobilinogen measurement by automated test strip (mass/volume) NORMAL NORMAL Urine leukocyte esterase detection by dipstick NEGATIVE NEGATIVE Automated urine sediment erythrocyte count by microscopy (number/high power field) [HPF] NRG Automated urine sediment leukocyte count by microscopy (number/high power field ) NONE NRG Bacteria detection in urine sediment by light microscopy NEGATIVE NRG Squamous epithelial cells detection in urine sediment by light microscopy RARE NRG Crystals detection in urine sediment by light microscopy NONE NRG Casts detection in urine sediment by light microscopy NONE NRG Mucus detection in urine sediment by light microscopy NEGATIVE NRG Complete urinalysis with reflex to culture NO NRG Comprehensive metabolic panel - 03/02/16 15:00 Serum or plasma sodium measurement (moles/volume) 136 mmol/L 135-145 Serum or plasma potassium measurement (moles/volume) 4.0 mmol/L 3.6-5.0 Serum or plasma chloride measurement (moles/volume) 107 mmol/L 98-107 Carbon dioxide 23 mmol/L 21-32 Serum or plasma anion gap determination (moles/volume) 6 mmol/L 5-14 Serum or plasma urea nitrogen measurement (mass/volume) 17 mg/dL 7-18 Serum or plasma creatinine measurement (mass/volume) 0.77 mg/dL 0.60-1.30 Serum or plasma urea nitrogen/creatinine mass ratio 22 NRG Serum or plasma creatinine measurement with calculation of estimated glomerular filtration rate > NRG Serum or plasma glucose measurement (mass/volume) 195 mg/dL 70-105 Serum or plasma calcium measurement (mass/volume) 8.6 mg/dL 8.5-10.1 Serum or plasma total bilirubin measurement (mass/volume) 0.5 mg/dL 0.1-1.0 Serum or plasma alkaline phosphatase measurement (enzymatic activity/volume) 92 U/L 40-136 Serum or plasma aspartate aminotransferase measurement (enzymatic activity/ volume) 16 U/L 5-34 Serum or plasma alanine aminotransferase measurement (enzymatic activity/volume ) 10 U/L 0-55 Serum or plasma protein measurement (mass/volume) 5.8 g/dL 6.4-8.2 Serum or plasma albumin measurement (mass/volume) 3.6 g/dL 3.2-4.5 Complete blood count (CBC) with automated white blood cell (WBC) differential - 03/02/16 15:00 Blood leukocytes automated count (number/volume) 6.3 10*3/uL 4.3-11.0 Blood erythrocytes automated count (number/volume) 4.78 10*6/uL 4.35-5.85 Venous blood hemoglobin measurement (mass/volume) 12.9 g/dL 13.3-17.7 Blood hematocrit (volume fraction) 40 % 40-54 Automated erythrocyte mean corpuscular volume 84 [foz_us] 80-99 Automated erythrocyte mean corpuscular hemoglobin (mass per erythrocyte) 27 pg 25-34 Automated erythrocyte mean corpuscular hemoglobin concentration measurement ( mass/volume) 32 g/dL 32-36 Automated erythrocyte distribution width ratio 18.0 % 10.0-14.5 Automated blood platelet count (count/volume) 198 10*3/uL 130-400 Automated blood platelet mean volume measurement 10.3 [foz_us] 7.4-10.4 Automated blood neutrophils/100 leukocytes 62 % 42-75 Automated blood lymphocytes/100 leukocytes 19 % 12-44 Blood monocytes/100 leukocytes 15 % 0-12 Automated blood eosinophils/100 leukocytes 3 % 0-10 Automated blood basophils/100 leukocytes 2 % 0-10 Blood neutrophils automated count (number/volume) 3.9 10*3 1.8-7.8 Blood lymphocytes automated count (number/volume) 1.2 10*3 1.0-4.0 Blood monocytes automated count (number/volume) 0.9 10*3 0.0-1.0 Automated eosinophil count 0.2 10*3/uL 0.0-0.3 Automated blood basophil count (count/volume) 0.1 10*3/uL 0.0-0.1 CBC with Auto Diff - 03/03/16 11:31 Baso% 1.60 % 0.00-2.50 Eos 0.2 K/uL 0.0-0.7 Eos% 3.2 % 0.0-7.0 Hct 40.8 % 42.0-52.0 Hgb 13.2 g/dL 14.0-17.0 Lym 1.01 K/uL 0.60-3.40 Lym% 13.4 % 10.0-50.0 MCH 27.3 pg 27.0-31.2 MCHC 32.4 g/dL 32.0-36.0 MCV 84.5 fL 80.0-97.0 [place]% 14.3 % 0.0-12.0 MPV 9.7 fL 7.4-10.0 Zhao% 67.5 % 37.0-80.0 Plt 187 K/uL 150-400 RBC 4.83 M/uL 4.20-5.40 RDW 17.9 % 11.6-14.8 WBC 7.55 K/uL 5.00-10.00 Zhao 5.10 K/uL 2.00-6.90 [place] 1.1 K/uL 0.0-0.9 Baso 0.1 K/uL 0.0-0.2 Blood Urea Nitrogen - 03/03/16 11:31 BUN 18 mg/dL 5-25 Creatinine - 03/03/16 11:31 Creat 0.90 mg/dL 0.50-1.50 eGFR 83 mL/min/1.73m2 >59 Urine Culture - 03/03/16 17:16 FINAL CULTURE RESULTS No Growth 48 hours MEDIA PLATED Setup at 18:00 on 03/03/2016 CULTURE SOURCE URINE Complete blood count (CBC) with automated white blood cell (WBC) differential - 06/06/16 03:05 Blood leukocytes automated count (number/volume) 5.0 10*3/uL 4.3-11.0 Blood erythrocytes automated count (number/volume) 4.46 10*6/uL 4.35-5.85 Venous blood hemoglobin measurement (mass/volume) 12.1 g/dL 13.3-17.7 Blood hematocrit (volume fraction) 37 % 40-54 Automated erythrocyte mean corpuscular volume 83 [foz_us] 80-99 Automated erythrocyte mean corpuscular hemoglobin (mass per erythrocyte) 27 pg 25-34 Automated erythrocyte mean corpuscular hemoglobin concentration measurement ( mass/volume) 33 g/dL 32-36 Automated erythrocyte distribution width ratio 16.6 % 10.0-14.5 Automated blood platelet count (count/volume) 228 10*3/uL 130-400 Automated blood platelet mean volume measurement 10.0 [foz_us] 7.4-10.4 Automated blood neutrophils/100 leukocytes 47 % 42-75 Automated blood lymphocytes/100 leukocytes 25 % 12-44 Blood monocytes/100 leukocytes 17 % 0-12 Automated blood eosinophils/100 leukocytes 9 % 0-10 Automated blood basophils/100 leukocytes 3 % 0-10 Blood neutrophils automated count (number/volume) 2.3 10*3 1.8-7.8 Blood lymphocytes automated count (number/volume) 1.3 10*3 1.0-4.0 Blood monocytes automated count (number/volume) 0.8 10*3 0.0-1.0 Automated eosinophil count 0.4 10*3/uL 0.0-0.3 Automated blood basophil count (count/volume) 0.1 10*3/uL 0.0-0.1 Comprehensive metabolic panel - 06/06/16 03:05 Serum or plasma sodium measurement (moles/volume) 143 mmol/L 135-145 Serum or plasma potassium measurement (moles/volume) 3.6 mmol/L 3.6-5.0 Serum or plasma chloride measurement (moles/volume) 109 mmol/L 98-107 Carbon dioxide 23 mmol/L 21-32 Serum or plasma anion gap determination (moles/volume) 11 mmol/L 5-14 Serum or plasma urea nitrogen measurement (mass/volume) 19 mg/dL 7-18 Serum or plasma creatinine measurement (mass/volume) 0.84 mg/dL 0.60-1.30 Serum or plasma urea nitrogen/creatinine mass ratio 23 NRG Serum or plasma creatinine measurement with calculation of estimated glomerular filtration rate > NRG Serum or plasma glucose measurement (mass/volume) 99 mg/dL 70-105 Serum or plasma calcium measurement (mass/volume) 8.5 mg/dL 8.5-10.1 Serum or plasma total bilirubin measurement (mass/volume) 0.9 mg/dL 0.1-1.0 Serum or plasma alkaline phosphatase measurement (enzymatic activity/volume) 82 U/L 40-136 Serum or plasma aspartate aminotransferase measurement (enzymatic activity/ volume) 13 U/L 5-34 Serum or plasma alanine aminotransferase measurement (enzymatic activity/volume ) 14 U/L 0-55 Serum or plasma protein measurement (mass/volume) 5.7 g/dL 6.4-8.2 Serum or plasma albumin measurement (mass/volume) 3.4 g/dL 3.2-4.5 Capillary blood glucose measurement by glucometer (mass/volume) - 06/06/16 03: 10 Capillary blood glucose measurement by glucometer (mass/volume) 85 mg/dL 70-110 Capillary blood glucose measurement by glucometer (mass/volume) - 06/06/16 04: 05 Capillary blood glucose measurement by glucometer (mass/volume) 75 mg/dL 70-110 Semen free prostate specific antigen (PSA) measurement (units/volume) - 09:35 Prostate specific ag [mass/volume] in serum or plasma 1.30 % 0.00-4.00 BNP - 04/12/17 10:49 BNP 2043.60 pg/ml 0.00-100.00 Automated blood complete blood count (hemogram) panel - 07/14/17 11:37 Blood leukocytes automated count (number/volume) 3.6 10*3/uL 4.3-11.0 Blood erythrocytes automated count (number/volume) 4.65 10*6/uL 4.35-5.85 Venous blood hemoglobin measurement (mass/volume) 14.0 g/dL 13.3-17.7 Blood hematocrit (volume fraction) 42 % 40-54 Automated erythrocyte mean corpuscular volume 90 [foz_us] 80-99 Automated erythrocyte mean corpuscular hemoglobin (mass per erythrocyte) 30 pg 25-34 Automated erythrocyte mean corpuscular hemoglobin concentration measurement ( mass/volume) 33 g/dL 32-36 Automated erythrocyte distribution width ratio 18.0 % 10.0-14.5 Automated blood platelet count (count/volume) 187 10*3/uL 130-400 Automated blood platelet mean volume measurement 10.7 [foz_us] 7.4-10.4 PT panel in platelet poor plasma by coagulation assay - 07/14/17 11:37 Prothrombin time (PT) in platelet poor plasma by coagulation assay 12.4 s 12.2-14.7 INR in platelet poor plasma or blood by coagulation assay 0.9 0.8-1.4 Activated partial thromboplastin time (aPTT) in platelet poor plasma bycoagulation assay - 07/14/17 11:37 Activated partial thromboplastin time (aPTT) in platelet poor plasma bycoagulation assay 24 s 24-35 Complete urinalysis with reflex to culture - 07/14/17 11:37 Urine color determination YELLOW NRG Urine clarity determination CLEAR NRG Urine pH measurement by test strip 7 5-9 Specific gravity of urine by test strip 1.010 1.016- 1.022 Urine protein assay by test strip, semi-quantitative 3+ NEGATIVE Urine glucose detection by automated test strip 2+ NEGATIVE Erythrocytes detection in urine sediment by light microscopy 2+ NEGATIVE Urine ketones detection by automated test strip NEGATIVE NEGATIVE Urine nitrite detection by test strip NEGATIVE NEGATIVE Urine total bilirubin detection by test strip NEGATIVE NEGATIVE Urine urobilinogen measurement by automated test strip (mass/volume) NORMAL NORMAL Urine leukocyte esterase detection by dipstick 1+ NEGATIVE Automated urine sediment erythrocyte count by microscopy (number/high power field) [HPF] NRG Automated urine sediment leukocyte count by microscopy (number/high power field ) [HPF] NRG Bacteria detection in urine sediment by light microscopy TRACE NRG Squamous epithelial cells detection in urine sediment by light microscopy RARE NRG Crystals detection in urine sediment by light microscopy NONE NRG Casts detection in urine sediment by light microscopy PRESENT NRG Mucus detection in urine sediment by light microscopy SMALL NRG Complete urinalysis with reflex to culture YES NRG Hyaline casts detection in urine sediment by light microscopy 0-2 NRG Comprehensive metabolic panel - 07/14/17 11:37 Serum or plasma sodium measurement (moles/volume) 139 mmol/L 135-145 Serum or plasma potassium measurement (moles/volume) 4.2 mmol/L 3.6-5.0 Serum or plasma chloride measurement (moles/volume) 103 mmol/L 98-107 Carbon dioxide 26 mmol/L 21-32 Serum or plasma anion gap determination (moles/volume) 10 mmol/L 5-14 Serum or plasma urea nitrogen measurement (mass/volume) 18 mg/dL 7-18 Serum or plasma creatinine measurement (mass/volume) 0.91 mg/dL 0.60-1.30 Serum or plasma urea nitrogen/creatinine mass ratio 20 NRG Serum or plasma creatinine measurement with calculation of estimated glomerular filtration rate > NRG Serum or plasma glucose measurement (mass/volume) 86 mg/dL 70-105 Serum or plasma calcium measurement (mass/volume) 8.9 mg/dL 8.5-10.1 Serum or plasma total bilirubin measurement (mass/volume) 0.8 mg/dL 0.1-1.0 Serum or plasma alkaline phosphatase measurement (enzymatic activity/volume) 85 U/L 40-136 Serum or plasma aspartate aminotransferase measurement (enzymatic activity/ volume) 23 U/L 5-34 Serum or plasma alanine aminotransferase measurement (enzymatic activity/volume ) 20 U/L 0-55 Serum or plasma protein measurement (mass/volume) 6.0 g/dL 6.4-8.2 Serum or plasma albumin measurement (mass/volume) 3.5 g/dL 3.2-4.5 Lipid 1996 panel - 07/14/17 11:37 Serum or plasma triglyceride measurement (mass/volume) 58 mg/dL <150 Serum or plasma cholesterol measurement (mass/volume) 178 mg/dL < 200 Serum or plasma cholesterol in HDL measurement (mass/volume) 63 mg/ dL 40-60 Cholesterol in LDL [mass/volume] in serum or plasma by direct assay 102 mg/dL 1-129 Serum or plasma cholesterol in VLDL measurement (mass/volume) 12 mg/ dL 5-40 Bacterial urine culture - 07/14/17 11:37 Bacterial urine culture NG NRG Methicillin resistant Staphylococcus aureus (MRSA) screening culture - 11:37 Methicillin resistant Staphylococcus aureus (MRSA) screening culture NEG NRG Encounters ACCT No. Visit Date/Time Discharge Status Pt. Type Provider Facility Loc./Unit Complaint [id number] 07/14/2017 10:50:00 07/14/2017 23:59:59 CLS Outpatient CAROLE INGRAM MD Via [facility] [id number] 07/14/2017 10:45:00 07/14/2017 23:59:59 CLS Outpatient CAROLE INGRAM MD Via [facility] CARD I50.9 CHF [id number] 12/01/2016 00:12:00 12/01/2016 23:59:59 CLS Preadmit MONICA ROJAS MD Via [facility] ONC [id number] 10/28/2016 13:01:00 11/30/2016 00:01:00 DIS Outpatient MONICA ROJAS MD Via [facility] ONC [id number] 08/04/2016 10:48:00 08/19/2016 00:01:00 DIS Outpatient MONICA ROJAS MD Via [facility] ONC [id number] 07/27/2016 09:44:00 07/27/2016 23:59:59 CLS Outpatient MONICA ROJAS MD Via [facility] RAD C83.33 [id number] 06/18/2016 10:12:00 06/18/2016 23:59:59 CLS Outpatient Lindsay CRONIN MD Via [facility] LAB [id number] 06/06/2016 02:51:00 06/06/2016 04:20:00 DIS Emergency GLORIA CALERO MD Via [facility] ER LOW BLOOD SUGAR [id number] 04/16/2016 09:29:00 04/22/2016 00:01:00 DIS Outpatient MONICA ROJAS MD Via [facility] ONC [id number] 03/18/2016 08:21:00 03/18/2016 23:59:59 CLS Outpatient CAROLE INGRAM MD Via [facility] CARD CHEST PAIN SYNDROME [id number] 03/02/2016 14:11:00 03/02/2016 16:50:00 DIS Emergency ITALIA BASS MD Via [facility] ER LEFT FLANK PAIN [id number] 03/02/2016 15:40:00 03/02/2016 15:40:00 CAN Emergency ITALIA BASS MD Via [facility] ER [id number] 02/20/2016 07:50:00 02/20/2016 23:59:59 CLS Outpatient CAROLE INGRAM MD Via [facility] CARD CHEST PAIN SYNDROME [id number] 01/21/2016 07:58:00 01/21/2016 23:59:59 CLS Outpatient MIO RODRIGUEZ APRN Via [facility] RAD DIFFUSE LARGE B CELL LYMPHOMA [id number] 12/12/2015 10:53:00 01/13/2016 07:59:00 DIS Outpatient MONICA ROJAS MD Via [facility] ONC [id number] 11/25/2015 13:44:00 11/25/2015 23:59:59 CLS Outpatient MONICA ROJAS MD [facility] RAD [id number] 10/31/2015 13:26:00 11/13/2015 00:01:00 DIS Outpatient MONICA ROJAS MD [facility] ONC [id number] 08/16/2015 13:09:00 08/16/2015 23:59:59 CLS Outpatient MONICA ROJAS MD Via [facility] RAD SEVERE RUQ PAIN ADBOMINAL PAIN [id number] 08/07/2015 13:56:00 08/08/2015 00:01:00 DIS Outpatient MONICA ROJAS MD [facility] ONC [id number] 07/17/2015 07:25:00 07/17/2015 23:59:59 CLS Outpatient CAROLE INGRAM MD Via [facility] LAB MR,DIABETES,CHEST PAIN SYNDROME [id number] 07/16/2015 09:23:00 07/16/2015 23:59:59 CLS Outpatient CAROLE INGRAM MD Via [facility] CARD CHEST PAIN SYNDROME,MR, DIABETES MALTOSIS TYPE 2 [id number] 07/02/2015 07:44:00 07/02/2015 23:59:59 CLS Outpatient MONICA ROJAS MD [facility] RAD MALIGNANT LYMPHOMA, DIFFUSED NON-HODGKINS LYMPHOMA [id number] 06/27/2015 11:04:00 06/27/2015 23:59:59 CLS Outpatient MONICA ROJAS MD [facility] CARD MALIGNANT LYMPHOMA, DIFFUSED NON-HODGKINS LYMPHOMA [id number] 06/11/2015 08:35:00 06/11/2015 23:59:59 CLS Outpatient MONICA ROJAS MD [facility] RAD NON HODGKINS LYMPOMA LARGE CELL [id number] 03/20/2015 09:00:00 04/11/2015 00:01:00 DIS Outpatient MONICA ROJAS MD [facility] ONC [id number] 03/08/2015 08:45:00 03/08/2015 23:59:59 CLS Outpatient MONICA ROJAS MD [facility] RAD DIFFUSED NON HODGKINS LYMPHOMA [id number] 11/01/2014 15:34:00 12/12/2014 00:01:00 DIS Outpatient MONICA ROJAS MD [facility] ONC [id number] 10/09/2014 09:28:00 10/09/2014 23:59:59 CLS Outpatient NATANAEL GALVAN [facility] ONC [id number] 09/10/2014 09:50:00 09/10/2014 23:59:59 CLS Outpatient MONICA ROJAS MD [facility] RAD NONHODGKINS LYMPHOMA, RESTAGING,DIZZINESS [id number] 08/29/2014 15:26:00 09/09/2014 00:01:00 DIS Outpatient MONICA ROJAS MD [facility] ONC [id number] 07/25/2014 11:33:00 08/13/2014 12:30:00 DIS Outpatient NILO ALCALA MD [facility] WOUNDCARE [id number] 07/25/2014 10:21:00 07/25/2014 23:59:59 CLS Outpatient MONICA ROJAS MD [facility] RAD LYMPHOMA [id number] 05/21/2014 16:31:00 05/21/2014 23:59:59 CLS Outpatient BRANDO CAZARES MD [facility] HH UTI [id number] 04/18/2014 18:00:00 04/21/2014 14:00:00 DIS Inpatient MONICA ROJAS MD [facility] SURGICAL PELVIC MASS WITH RIGHT URETERAL OBSTRUCTION [id number] 04/18/2014 08:19:00 04/18/2014 23:59:59 CLS Outpatient KEREN ALBERTO MD [facility] RAD PELVIC PAIN [id number] 04/12/2014 08:23:00 04/12/2014 23:59:59 CLS Outpatient KEREN ALBERTO MD [facility] LAB PELVIC PAIN [id number] 03/26/2014 16:25:00 03/26/2014 18:20:00 DIS Emergency MANPREET OVERTON RESTAURANT GREETER [facility] ER DIFFICULTY URINATING [id number] 02/22/2014 06:49:00 02/22/2014 23:59:59 CLS Outpatient JENNIFER DOMINGUEZ [employer]LING [employer]MER [employer] [facility] RAD NECK MASS [id number] 08/15/2013 08:21:00 08/15/2013 10:25:00 DIS Emergency ETTA ROMANO DO [facility] ER BLOOD IN URINE [id number] 08/01/2013 07:00:00 08/02/2013 11:20:00 DIS Outpatient KEREN ALBERTO MD [facility] SDC BPH [id number] 07/27/2013 11:47:00 07/27/2013 23:59:59 CLS Outpatient KEREN ALBERTO MD [facility] PREOP BPH [id number] 10/28/2012 07:40:00 10/28/2012 23:59:59 CLS Outpatient BARTOLO JURADO, NILO Fernandez [facility] RAD ACUTE NECK AND EAR PAIN, PAINFUL SWALLOWING [id number] 07/28/2017 07:11:00 ACT Outpatient CAROLE INGRAM MD [facility] CATH CHF,SEVERE MR,MVP,DM [id number] 01/14/2016 09:57:00 Document Registration [id number] 10/27/2015 02:28:00 Document Registration [id number] 06/19/2014 13:50:00 Document Registration [id number] 06/18/2014 10:04:00 Document Registration [id number] 06/14/2014 11:38:00 Document Registration [id number] 06/13/2014 09:22:00 Document Registration [id number] 05/28/2014 13:20:00 Document Registration [id number] 05/28/2014 13:12:00 Document Registration [id number] 03/02/2016 15:50:00 Document Registration [id number] 01/15/2015 13:00:34 ACT Document Registration [id number] 04/13/2017 11:00:00 04/13/2017 23:59:00 DIS Outpatient Davis Caldera [id number] 04/12/2017 10:45:00 04/12/2017 23:59:00 DIS Outpatient Davis Caldera [id number] 03/24/2017 15:15:00 03/24/2017 23:59:00 DIS Outpatient Davis Caldera [id number] 03/08/2016 00:00:00 03/08/2016 00:00:00 CAN Outpatient Davis Caldera [id number] 03/06/2016 11:41:00 03/06/2016 23:59:00 DIS Outpatient Etta Arellano [id number] 03/03/2016 17:11:00 03/03/2016 23:59:00 DIS Outpatient Davis Caldera [id number] 03/03/2016 11:26:00 03/03/2016 23:59:00 DIS Outpatient Davis Caldera [id number] 03/02/2016 15:34:00 Document Registration [id number] 01/18/2017 09:00:00 01/18/2017 23:59:59 CLS Outpatient ELZA VALERO [facility]
[2017-07-28 07:46] LABS: HEMOGLOBIN 14.1 G/DL (13.3-17.7); MEAN PLATELET VOLUME 10.2 FL (7.4-10.4); RED BLOOD COUNT 4.61 10^6/uL (4.35-5.85); RED CELL DISTRIBUTION WIDTH 17.6 % (10.0-14.5); WHITE BLOOD COUNT 4.1 10^3/uL (4.3-11.0)
[2017-07-28] MEDS ORDERED: MIDAZOLAM 5 MG/5 ML (VERSED) VIAL ONE (07:53)
[2017-07-28] MEDS ORDERED: fentaNYL INJECTION 100 MCG/2 ML AMP ONE (07:53)
[2017-07-28 07:57] LABS: PROTHROMBIN TIME PATIENT 13.1 SEC (12.2-14.7)
[2017-07-28 08:06] LABS: ALANINE AMINOTRANSFERASE 19 U/L (0-55); ALBUMIN 3.5 GM/DL (3.2-4.5); ALKALINE PHOSPHATASE 80 U/L (40-136); BILIRUBIN,TOTAL 1.1 MG/DL (0.1-1.0); BUN/CREATININE RATIO 20; CALCIUM 8.8 MG/DL (8.5-10.1); CARBON DIOXIDE 27 MMOL/L (21-32); CHLORIDE 103 MMOL/L (98-107); GFR ESTIMATED > 60; GLUCOSE 79 MG/DL (70-105); POTASSIUM 3.9 MMOL/L (3.6-5.0); SODIUM 138 MMOL/L (135-145)
[2017-07-28 08:06] LABS: CLARITY,URINE CLEAR; COLOR,URINE YELLOW; GLUCOSE, URINE (UA) 1+ (NEGATIVE); KETONES,URINE 1+ (NEGATIVE); LEUKOCYTE ESTERASE ,URINE 1+ (NEGATIVE); NITRITE,URINE NEGATIVE (NEGATIVE); PH,URINE 6 (5-9); PROTEIN,URINE 3+ (NEGATIVE); UROBILINOGEN,URINE NORMAL (NORMAL)
[2017-07-28 08:07] LABS: BACTERIA,URINE TRACE /HPF; BILIRUBIN,URINE 1+ (NEGATIVE); SQUAMOUS EPITHELIAL CELL,UR 0-2 /HPF
--- NOTE | 2017-07-28 08:18 | Cardiac Procedure Note-CS/ASA ---
Pre-Procedure Note Pre-Op Procedure Note H&P Reviewed The H&P was reviewed, patient examined and no changes noted. Date H&P Reviewed: Jul 28, 2017 Time H&P Reviewed: 08:18 Conscious Sedation Pre-Proced Time Reviewed: 08:18 ASA Class: 3 Airway Mallampati Classification: ([place]-apache appropriate class) I. II. III, IV Lungs Heart ASA score ASA 1: a normal healthy patient ASA 2: a patient with a mild systemic disease (mid diabetes, controlled hypertension, obesity X ASA 3: a patient with a severe systemic disease that limits activity (angina , COPD, prior Myocardial infarction) ASA 4: a patient with an incapacitating disease that is a constant threat to life (CHF, renal failure) ASA 5: a moribund patient not expected to survive 24 hrs. (ruptured aneurysm) ASA 6: a declared brain patient whose organs are being harvested. For emergent operations, add the letter E after the classification Grade 3 Sedation Plan: Analgesia, Amnesia, Plan communicated to team members, Discussed options with patient/fam, Discussed risks with patient/fam Note The patient is an appropriate candidate to undergo the planned procedure, sedation, and anesthesia. The patient immediately re-assessed prior to indication. CAROLE INGRAM MD Jul 28, 2017 08:18
--- NOTE | 2017-07-28 08:18 | Diagnostic Imaging Report ---
INDICATION: Coronary disease. Study compared to exam 07/14/2017. Medial left basilar nodule correlates with area of fat demonstrated on CT of one day prior. Air trapping, COPD chronic, right IJ at the SVC. No effusion, pneumothorax or failure. IMPRESSION: Stable chronic findings. Dictated by: Dictated on workstation # [id number]
[2017-07-28] MEDS ORDERED: PATIENT MAY USE OWN MEDS, ALL PO SCH (09:00)
--- NOTE | 2017-07-28 09:11 | Cardiac Cath Report ---
Cardiac Cath Report Physician (s)/Pressure Testing Technician (s) Physician CAROLE INGRAM MD Pre-Procedure Diagnosis Pre-Procedure Diagnosis: severe mitral regurgitation, coronary artery Post-Procedure Note Procedure Start Date: Jul 28, 2017 Name of Procedure: Left heart catheterization Findings/Procedure Note PROCEDURE NOTE: After explaining the procedure to the patient, all pros and cons were explained , all questions were answered. The patient signed the consent and then he was placed on the cardiac catheterization laboratory. Groin was prepped SL fashion local anesthesia was used. Sheath placed in the right femoral artery. Monique right and left catheter were used to access the coronary system. Pigtail was used to access the left ventricular cavity. Left ventriculogram was done At the end of the procedure the sheath was removed. Closure device was used FINDINGS: Hemodynamics LV 93/8, end-diastolic pressure of 8 Aorta 101/49 mean of 68 ANATOMY: Left Main is free of obstructive disease Left Anterior Descending has mild disease at the mid and distal portion, stent is patent in the mid LAD, diagonal artery has ostial stenosis Left Circumflex is moderate in size with mild disease nonobstructive disease Right Coronory Artery is dominant artery with hapx-la-ljtewloy disease nonobstructive disease the right ventricular branch has ostial stenosis LV Gram was done in the right anterior oblique position left ventricle is prominent with mild diffuse left ventricular hypokinesia estimated ejection fraction 45 percent, +2-3 mitral regurgitation CONCLUSION: 1. Patent stent in the mid LAD with wdlp-mi-ppddknwn coronary artery disease nonobstructive disease 2. +2-3 mitral regurgitation 3. Prominent left ventricle with gimb-ti-izlfmmcr diffuse left ventricular hypokinesia estimated ejection fraction 45 percent with normal left ventricular end-diastolic pressure DISCUSSION AND RECOMMENDATION: Continue with medical therapy at this point. Anesthesia Type: Conscious Sedation Estimated blood loss (mL): 10 ml Contrast Amount: 50 ml Total Radiation Dose: 421 mGy Post-Procedure Diagnosis Post-operative diagnosis: Coronary artery disease Severe mitral regurgitation Congestive heart failure, chronic compensated left ventricular systolic dysfunction, secondary to valvular heart disease Hyperlipidemia CAROLE INGRAM MD Jul 28, 2017 9:11 am
== END 2017-07-28 13:30 | disposition home or self-care (01) ==
LOC: CATH 07:11 → SURG 09:11 → CATH 13:30
PROVIDERS: ATTEND Internal Medicine Cardiovascular Disease
DX: I25.10 Atherosclerotic heart disease of native coronary artery without angina pectoris (principal); I34.0 Nonrheumatic mitral (valve) insufficiency; I50.22 Chronic systolic (congestive) heart failure; I38 Endocarditis, valve unspecified; Z11.2 Encounter for screening for other bacterial diseases; R82.90 Unspecified abnormal findings in urine
CPT/HCPCS: 36415; 71045; 80053; 81000; 85027; 85610; 85730; 87081; 87088; 93005; 93458

== ENCOUNTER 2018-03-01 18:58 | Emergency (ER) | payer MEDICARE ==
[~2018-03-01] VITALS: Ht 177.8 cm; Wt 83.0 kg
[~2018-03-01 18:58] MED LIST changes: -CODE118S2 PO; +CODE118S4 PO
--- OUTSIDE RECORDS SUMMARY | 2018-03-01 19:04 | XMS REPORT | Encounter Summary ---
Author Author [facility] Organization [facility] Address Unknown Phone Unavailable Care Team Providers Care Operators School Manager Name Role Phone Kev Sheffield MD Unavailable Becka Turcios MD Unavailable Curtis Welsh MD Unavailable Blayne Jarquin DO Unavailable Christine Vargas RN Unavailable Unavailable Davis Caldera PCP Anne Bridges PhD Unavailable Unavailable Deborah Moscoso RN Unavailable Unavailable Roderick Bosch MD Unavailable Ruth Mercado [place] Unavailable Ladonna Rodríguez [place] Unavailable Joan Dawson RN Unavailable Unavailable [place] Unavailable Amber Pickens RN Unavailable Unavailable Tonya Bobo MD Unavailable Valentine Finnegan RN Unavailable Unavailable Eve Ayala RN Unavailable Unavailable Reason for Visit * Reason Comments BMT Follow-up 3 yr LTFU Encounter Details Date Type Department Care Team Description 12/20/2017 Telephone [facility] Trinidad Potts BMT Follow-up (3 yr LTFU) Cancer Center - BMT Exam Cancer Center [facility] [id number] [place] [address] Social History Tobacco Use Types Packs/Day Years Used Date Former Smoker Cigarettes 0.75 25 Quit: 04/27/1999 Smokeless Tobacco: Never Used Comments: smoked for 25 years Alcohol Use Drinks/Week oz/Week Comments Yes 2-3 drinks per day Sex Assigned at Date Recorded Not on file as of this encounter Functional Status Functional Status Response Date of Assessment Does the patient have a hearing impairment: No 07/24/2015 Does the patient have a visual impairment: No 01/04/2015 Does the patient have impaired ambulation: Yes - Pt "drifts", being 2014 sent home w walker Does the patient have an activity of daily living No 01/04/2015 (ADL) impairment: Does the patient have an instrumental activity of No 01/04/2015 daily living (IADL) impairment: Cognitive Status Response Date of Assessment Does the patient have a cognitive impairment: No 01/04/2015 as of this encounter Miscellaneous Notes * Telephone Encounter - Trinidad Potts - 12/20/2017 2:02 PM CDT 12/20/2017 2:02 PM PT declined 3 yr LTFU result visit. But will have testing done with Dr. Michelle. I have faxed over the order and request for records. f [phone] p . KB in this encounter Plan of Treatment Not on fileas of this encounter Visit Diagnoses Not on filein this encounter
--- OUTSIDE RECORDS SUMMARY | 2018-03-01 19:04 | XMS REPORT ---
Author Author MILEY RODRIGUEZ Organization [facility] Address [address] [place] [address] Care Team Providers Care Title 1 Tutor Name Role Phone MILEY RODRIGUEZ Unavailable PROBLEMS Unknown Problems ALLERGIES No Information ENCOUNTERS Encounter Location Date Diagnosis [facility] [address] [facility] [id number] [address] Jan, Encounter for immunization Z23 IMMUNIZATIONS Vaccine Route Administration Date Status MMR SC Subcutaneous Jan 18, 2017 Administered SOCIAL HISTORY Never Assessed REASON FOR VISIT Immunization(s), MMR--[place],CCMA PLAN OF CARE VITAL SIGNS MEDICATIONS Unknown Medications RESULTS No Results PROCEDURES Procedure Date Ordered Result Body Site MMR VACCINE, SC Jan 18, 2017 SINGLE IMMUNIZATION ADMIN Jan 18, 2017 INSTRUCTIONS MEDICATIONS ADMINISTERED No Known Medications
--- OUTSIDE RECORDS SUMMARY | 2018-03-01 19:04 | XMS REPORT | Clinical Summary ---
Author Author [facility] Organization [facility] Address Unknown Phone Unavailable Care Team Providers Care Flat Folding Machine Operator Name Role Phone Kev Sheffield MD Unavailable Becka Turcios MD Unavailable Curtis Welsh MD Unavailable Blayne Jarquin DO Unavailable Kiarra Vargas RN Unavailable Unavailable Davis Caldera PCP Anne Bridges PhD Unavailable Unavailable Deborah Moscoso RN Unavailable Unavailable Roderick Bosch MD Unavailable Ruth Mercado VISITOR SERVICE ASSISTANT Unavailable Ladonna Rodríguez VISITOR SERVICE ASSISTANT Unavailable Joan Dawson RN Unavailable Unavailable [place] VISITOR SERVICE ASSISTANT Unavailable Amber Pickens RN Unavailable Unavailable Tonya Bobo MD Unavailable Valentine Finnegan RN Unavailable Unavailable Eve Ayala RN Unavailable Unavailable Source Comments Some departments are not documenting in the electronic medical record. If you do not see the information that you expected, contact Release of Information in the Health Information Management department at [phone] for further assistance in locating additional records.[facility] Allergies Active Allergy Reactions Severity Noted Date Comments Formaldehyde RASH 04/24/2014 Current Medications Prescription Sig. Disp. Refills Start End Date Status Date insulin pump -ASPART- by SubQ Pump route as Active Patients Own directed. Novolog SubQ Insulin Pump settings: Timin3689-9196: 0.6 units/hr 0603-4246: 0.4 units/hr 0066-7254: 0.95 units/hr 9381-6809: 0.9 units/hr 2654-4721: 0.75 units/hr 9189-4892: 0.6 units/hr predniSONE (DELTASONE) 5 Take 1 [...] (HCC) 01/08/2015 H/O peripheral stem cell transplant ([facility]) 01/05/2015 Overview: Date of Transplant: 12/24/14 Preparative Regimen: BEAC Reduced or fully ablative: Full Disease: NHL Disease Status at Transplant: IN Cytogenetic/FISH at DIAGNOSIS: 45,X,-Y[7]/46,XY[12] CMV: NEG Cell Source: PSC, autologous Consents/Studies: 8322, blood, apheresis, auto, H&P Coordinator: KIARRA VARGAS RN Pancytopenia due to chemotherapy ([facility]) 12/31/[address] ([facility]) 12/19/2014 T1DM (type 1 diabetes mellitus) ([facility]) 05/03/2014 Rheumatoid arthritis (HCC) 05/03/2014 Resolved Problems Problem Noted Date Resolved Date Nystagmus 12/30/2014 01/08/2015 Constipation 12/30/2014 01/08/2015 Mucositis due to antineoplastic therapy 12/30/2014 01/08/2015 Nausea 12/30/2014 01/08/2015 Fluid retention in tissues 12/23/2014 01/08/2015 Chemotherapy-induced nausea and vomiting 12/23/2014 01/08/2015 Conditioning chemotherapy prior to peripheral blood stem cell transplant 01/06/2015 Hypomagnesemia 12/18/2014 01/08/2015 Insect bite of foot or toe of right foot 11/14/2014 01/08/2015 Encounters Date Type Specialty Care Team Description 12/20/2017 Telephone Oncology Trinidad Potts BMT Follow-up (3 yr LTFU) from Last 3 Months Immunizations Name Dates Previously Given Next Due [...] 1964 FOOT EXAM 1964 MICROALBUMIN 1964 SHINGLES RECOMBINANT 1996 VACCINE (1 of 2) ABDOMINAL AORTIC ANEURYSM 2011 SCREENING HBA1C 11/04/2014 05/07/2014 PNEUMONIA (PCV13/PPSV23) 01/28/2017 01/29/2016, 11/04/2015, 09/12/2015, VACCINES (2 of 2 - Additional history exists PPSV23) INFLUENZA VACCINE 11/03/2017 01/29/2016 COLORECTAL CANCER 06/12/2025 06/13/2015 SCREENING DTAP/TDAP VACCINES (2 - 11/03/2025 11/04/2015, 09/12/2015, 07/11/2015 Td) HEPATITIS C SCREENING Completed 04/29/2014 Implants Implanted Type Area Fence Rider Device Expiration Model / Identifier Date Serial / Lot Cutdown Kit Ea/[id number] [facility] [id number] Implanted: Qty: 1 on 01/08/2015 / / Results Not on filefrom Last 3 Months
[2018-03-01] MEDS ORDERED: TETANUS,DIPTH,PERTUSS P/F (BOOSTRIX) 0.5 ML VIAL IM STA (19:08)
--- OUTSIDE RECORDS SUMMARY | 2018-03-01 19:10 | XMS REPORT | Continuity of Care Document ---
Author Author [facility] Organization [facility] Address Unknown Phone Unavailable Allergies Active Description Code Type Severity Reaction Onset Reported/Identified Relationship to Patient Clinical Status Yes NO KNOWN DRUG ALLERGIES UNKNOWN NO KNOWN DRUG ALLERG Yes formaldehyde [id number] Drug Allergy Unknown N/A 12/20/2007 Yes acetaminophen [id number] Drug Allergy Moderate RASH 07/14/2017 Yes hydrocodone [id number] Drug Allergy Moderate RASH 07/14/2017 Yes oxycodone [id number] Drug Allergy Moderate RASH 07/14/2017 Medications There [...] BLADDER NECK OBSTRUCTION 08/15/2013 IDANIA ROMANO DOA mR Ot 599.0 URIN TRACT INFECTION NOS 08/15/2013 ETTA ROMANO DO Ot 599.71 GROSS HEMATURIA 03/22/2014 JENNIFER DOMINGUEZ GLUE REEL OPERATOR Ot 784.2 03/26/2014 MANPREET OVERTON BRICK SORTER Ot 788.1 DYSURIA 03/27/2014 MANPREET OVERTON BRICK SORTER Ot 788.1 03/28/2014 MANPREET OVERTON BRICK SORTER Ot 788.1 04/18/2014 BARTOLO JURADO, NILO Fernandez Ot 388.70 04/18/2014 BARTOLO JURADO, NILO Fernandez Ot 723.1 04/18/2014 BARTOLO JURADO, NILO Fernandez Ot 787.21 04/18/2014 KEREN ALBERTO MD Ot 600.00 04/18/2014 KEREN ALBERTO MD Ot V72.63 04/18/2014 DOLLY JURADO, KEREN [place] Ot V72.81 04/18/2014 DOLLY JURADO, KEREN [place] Ot V74.8 04/18/2014 JENNIFER DOMINGUEZ GLUE REEL OPERATOR Ot 784.2 04/18/2014 DOLLY JURADO, KEREN [place] [...] Abdalla Ot V58.81 09/13/2014 CRYSTAL JURADO, MONICA Abdlala Ot 202.80 09/13/2014 CRYSTAL JURADO, MONICA Abdalla [...] MONICA Abdalla Ot 202.80 11/07/2014 MANDYNATANAEL S PHY THERAPIST Ot 202.80 11/07/2014 MANDY NATANAEL S PHY THERAPIST Ot 250.00 11/07/2014 MANDY NATANAEL S PHY THERAPIST Ot 272.4 11/07/2014 MANDY NATANAEL S PHY THERAPIST Ot 356.9 11/07/2014 GALVAN, NATANAEL S PHY THERAPIST Ot 401.9 11/07/2014 GALVAN, NATANAEL S PHY THERAPIST Ot 564.00 11/07/2014 MANDY NATANAEL S PHY THERAPIST Ot 714.0 11/07/2014 MANDY NATANAEL S PHY THERAPIST Ot V44.3 11/07/2014 MANDY NATANAEL S PHY THERAPIST Ot V45.85 11/07/2014 MANDY NATANAEL S PHY THERAPIST Ot V58.69 11/09/2014 CRYSTAL JURADO, MONICA Abdalla Ot 200.70 11/26/2014 JENNIFER DOMINGUEZ GLUE REEL OPERATOR Ot 784.2 11/26/2014 MANDY NATANAEL S PHY THERAPIST Ot 202.80 11/26/2014 MANYD NATANAEL S PHY THERAPIST Ot 250.00 11/26/2014 MANDY NATANAEL S PHY THERAPIST Ot 272.4 11/26/2014 MANDY NATANAEL S PHY THERAPIST Ot 356.9 11/26/2014 MANDY NATANAEL S PHY THERAPIST Ot 401.9 11/26/2014 MANDY NATANAEL S PHY THERAPIST Ot 564.00 11/26/2014 MANDYNATANAEL S PHY THERAPIST Ot 714.0 11/26/2014 MANDY NATANAEL S PHY THERAPIST Ot V44.3 11/26/2014 MANDY NATANAEL S PHY THERAPIST Ot V45.85 11/26/2014 MANDY NATANAEL S PHY THERAPIST Ot V58.69 12/12/2014 CRYSTAL JURADO, MONICA Abdalla [...] 04/11/2015 MONICA ROJAS MD Ot Z79.899 OTHER CARE HOME (CURRENT) DRUG THERAPY 04/11/2015 MONICA ROJAS MD [...] KEREN A Ot V74.8 06/27/2015 ANGELICAJENNIFER SANDERS GLUE REEL OPERATOR Ot 784.2 06/27/2015 DOLLY JURADO, KEREN A [...] MONICA Abdalla Ot 200.70 06/27/2015 NATANAEL GALVAN PHY THERAPIST Ot 202.80 06/27/2015 NATANAEL GALVAN PHY THERAPIST Ot 250.00 06/27/2015 NATANAEL GALVAN S PHY THERAPIST Ot 272.4 06/27/2015 NATANAEL GALVAN S PHY THERAPIST Ot 356.9 06/27/2015 NATANAEL GALVAN S PHY THERAPIST Ot 401.9 06/27/2015 NATANAEL GALVAN S PHY THERAPIST Ot 564.00 06/27/2015 NATANAEL GALVAN S PHY THERAPIST Ot 714.0 06/27/2015 NATANAEL GALVAN S PHY THERAPIST Ot V44.3 06/27/2015 NATANAEL GALVAN PHY THERAPIST Ot V45.85 06/27/2015 NATANAEL GALVAN PHY THERAPIST Ot V58.69 06/27/2015 CRYSTAL JRUADO, MONICA Abdalla Ot C83.33 06/27/2015 CRYSTAL JURADO, [...] MONICA Abdalla Ot E78.5 07/09/2015 CRYSTAL JURADO, MONICA Abdalla Ot I10 07/09/2015 CRYSTAL JURADO, MONICA [...] 08/08/2015 MONICA ROJAS MD Ot Z79.899 OTHER CYLINDER GRINDER (CURRENT) DRUG THERAPY 08/08/2015 MONICA ROJAS MD Ot Z93.3 COLOSTOMY STATUS 08/08/2015 MONICA ROJAS MD Ot Z96.41 PRESENCE OF INSULIN PUMP (EXTERNAL) (INT 08/09/2015 MONICA ROJAS MD, Ot 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, UNSPE 08/09/2015 MONICA ROJAS MD, Ot E11.9 TYPE 2 DIABETES MELLITUS WITHOUT COMPLIC 08/09/2015 MONICA ROJAS MD, Ot E78.5 HYPERLIPIDEMIA, UNSPECIFIED 08/09/2015 OMNICA ROJAS MD Ot I10 ESSENTIAL (PRIMARY) HYPERTENSION 08/09/2015 MONICA ROJAS MD Ot Z79.899 OTHER CARE HOME (CURRENT) DRUG THERAPY 08/09/2015 MONICA ROJAS MD [...] 08/15/2015 MONICA ROJAS MD Ot Z79.899 OTHER CYLINDER GRINDER (CURRENT) DRUG THERAPY 08/15/2015 MONICA ROJAS [...] 08/16/2015 MONICA ROJAS MD Ot Z79.899 OTHER CYLINDER GRINDER (CURRENT) DRUG THERAPY 08/16/2015 MONICA ROJAS [...] 09/27/2015 MONICA ROJAS MD Ot Z79.899 OTHER CYLINDER GRINDER (CURRENT) DRUG THERAPY 09/27/2015 MONICA ROJAS [...] 11/04/2015 MONICA ROJAS MD Ot Z79.899 OTHER CARE HOME (CURRENT) DRUG THERAPY 11/04/2015 MONICA ROJAS MD [...] 11/13/2015 MONICA ROJAS MD Ot Z79.899 OTHER CARE HOME (CURRENT) DRUG THERAPY 11/13/2015 MONICA ROJAS MD [...] 12/05/2015 MONICA ROJAS MD Ot Z79.899 OTHER CYLINDER GRINDER (CURRENT) DRUG THERAPY 12/05/2015 MONICA ROJAS [...] 12/13/2015 MONICA ROJAS MD Ot Z79.899 OTHER CARE HOME (CURRENT) DRUG THERAPY 12/13/2015 MONICA ROJAS MD [...] 01/13/2016 MONICA ROJAS MD Ot Z79.899 OTHER CYLINDER GRINDER (CURRENT) DRUG THERAPY 01/13/2016 MONICA ROJAS [...] EXAMINATION 01/21/2016 KEREN ALBERTO MD Ot V72.81 ZMDT-[id number] CARDIOVASCULAR 01/21/2016 KEREN ALBERTO MD Ot V74.8 SCREEN-BACTERIAL DIS NEC 01/21/2016 JENNIFER DOMINUGEZ GLUE REEL OPERATOR Ot 784.2 SWELLING IN HEAD NECK 01/21/2016 [...] VARIANTS, EXTRANODAL SOLID ORGAN 01/21/2016 CRYSTAL JURADO, MONICA Abdalla Ot 200.70 LARGE CELL LYMPHOMA, UNSP SITE, EXTRANOD 01/21/2016 NATANAEL GALVAN PHY THERAPIST Ot 202.80 OTH LYMPHOMAS EXTRANODAL SOLID ORGAN U 01/21/2016 NATANAEL GALVAN PHY THERAPIST Ot 250.00 DIAB GER WO COMPL, TYPE II OR UNSPEC TY 01/21/2016 NATANAEL GALVAN S PHY THERAPIST Ot 272.4 HYPERLIPIDEMIA NEC/NOS 01/21/2016 NATANAEL GALVAN S PHY THERAPIST Ot 356.9 IDIO PERIPH NEURPTHY NOS 01/21/2016 ALEX GALVANANTONIETTA S PHY THERAPIST Ot 401.9 HYPERTENSION NOS 01/21/2016 NATANAEL GALVAN S PHY THERAPIST Ot 564.00 UNSPEC CONSTIPATION 01/21/2016 ALEX GALVANANTONIETTA S PHY THERAPIST Ot 714.0 RHEUMATOID ARTHRITIS 01/21/2016 NATANAEL GALVAN PHY THERAPIST Ot V44.3 COLOSTOMY STATUS 01/21/2016 NATANAEL GALVAN PHY THERAPIST Ot V45.85 INSULIN PUMP STATUS 01/21/2016 ALEX GALVANANTONIETTA S PHY THERAPIST Ot V58.69 OTH MED,LT,CURRENT USE 01/21/2016 CRYSTAL [...] 01/21/2016 MONICA ROJAS MD Ot Z79.899 OTHER CARE HOME (CURRENT) DRUG THERAPY 01/21/2016 MONICA ROJAS MD Ot Z93.3 COLOSTOMY STATUS 01/21/2016 MONICA ROJAS MD Ot Z96.41 PRESENCE OF INSULIN PUMP (EXTERNAL) (INT 01/22/2016 MIO RODRIGUEZ BRICK SORTER Ot C83.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, UNSPECIFI 01/22/2016 MIO RODRIGUEZ S BRICK SORTER Ot C83.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, UNSPECIFI 01/24/2016 MONICA ROJAS MD Ot 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, UNSPE 01/24/2016 MONICA ROJAS MD Ot E11.9 TYPE 2 DIABETES MELLITUS WITHOUT COMPLIC 01/24/2016 MONICA ROJAS MD Ot E78.5 HYPERLIPIDEMIA, UNSPECIFIED 01/24/2016 MONICA ROJAS MD Ot I10 ESSENTIAL (PRIMARY) HYPERTENSION 01/24/2016 MONICA ROJAS MD Ot Z79.899 OTHER CARE HOME (CURRENT) DRUG THERAPY 01/24/2016 MONICA ROJAS MD [...] PAIN 03/02/2016 ITALIA BASS MD, Ot Z79.4 CYLINDER GRINDER (CURRENT) USE OF INSULIN 03/02/2016 ITALIA BASS MD Ot Z79.82 CARE HOME (CURRENT) USE OF ASPIRIN 03/02/2016 ITALIA BASS MD, Ot Z79.899 OTHER CARE HOME (CURRENT) DRUG THERAPY 03/02/2016 ITALIA BASS MD Ot Z85.72 PERSONAL HISTORY OF NON-HODGKIN LYMPHOMA 03/04/2016 MONICA ROJAS MD Ot 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, UNSPE 03/04/2016 MONICA ROJAS MD Ot E11.9 TYPE 2 DIABETES MELLITUS WITHOUT COMPLIC 03/04/2016 MONICA ROJAS MD Ot E78.5 HYPERLIPIDEMIA, UNSPECIFIED 03/04/2016 MONICA ROJAS MD Ot I10 ESSENTIAL (PRIMARY) HYPERTENSION 03/04/2016 MONICA ROJAS MD Ot Z79.899 OTHER CARE HOME (CURRENT) DRUG THERAPY 03/04/2016 MONICA ROJAS MD Ot Z93.3 COLOSTOMY STATUS 03/04/2016 MONICA ROJAS MD Ot Z96.41 PRESENCE OF INSULIN PUMP (EXTERNAL) (INT 03/05/2016 ITALIA BASS MD Ot E11.9 TYPE 2 DIABETES MELLITUS WITHOUT COMPLIC 03/05/2016 ITALIA BASS MD Ot M54.5 LOW BACK PAIN 03/05/2016 ITALIA BASS MD Ot Z79.4 CARE HOME (CURRENT) USE OF INSULIN 03/05/2016 ITALIA BASS MD Ot Z79.82 CARE HOME (CURRENT) USE OF ASPIRIN 03/05/2016 ITALIA BASS MD Ot Z79.899 OTHER CARE HOME (CURRENT) DRUG THERAPY 03/05/2016 SHELIA JURADO, ITALIA Abdalla Ot Z85.72 PERSONAL HISTORY OF NON-HODGKIN LYMPHOMA 03/13/2016 CAROLE INGRAM MD Ot E78.2 MIXED HYPERLIPIDEMIA 03/13/2016 NATALY JURADO, CAROLE Montoya Ot R01.1 CARDIAC MURMUR, UNSPECIFIED 03/13/2016 CAROLE INGRAM MD J Ot R07.9 CHEST PAIN, UNSPECIFIED 03/13/2016 CAROLE INGRAM MD J Ot Z82.49 FAMILY HX OF ISCHEM HEART DIS AND OTH DI 03/13/2016 MIO RODRIGUEZ BRICK SORTER Ot C83.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, UNSPECIFI [...] MD Ot E78.5 HYPERLIPIDEMIA, UNSPECIFIED 04/22/2016 MONICA ROJAS MD Ot I10 ESSENTIAL (PRIMARY) HYPERTENSION 04/22/2016 MONICA ROJAS MD Ot Z79.899 OTHER CYLINDER GRINDER (CURRENT) DRUG THERAPY 04/22/2016 MONICA ROJAS [...] 04/23/2016 MONICA ROJAS MD Ot Z79.899 OTHER CARE HOME (CURRENT) DRUG THERAPY 04/23/2016 MONICA ROJAS MD [...] 05/22/2016 MONICA ROJAS MD Ot Z79.899 OTHER CARE HOME (CURRENT) DRUG THERAPY 05/22/2016 MONICA ROJAS MD Ot Z93.3 COLOSTOMY STATUS 05/22/2016 MONICA ROJAS MD Ot Z96.41 PRESENCE OF INSULIN PUMP (EXTERNAL) (INT 06/06/2016 GLORIA CALERO MD Ot E11.649 TYPE 2 DIABETES MELLITUS WITH HYPOGLYCEM 06/06/2016 GLORIA CALERO MD Ot I10 ESSENTIAL (PRIMARY) HYPERTENSION 06/06/2016 GLORIA CALERO MD, Ot Z79.82 CYLINDER GRINDER (CURRENT) USE OF ASPIRIN 06/06/2016 GLORIA [...] 07/01/2016 MONICA ROJAS MD Ot Z79.899 OTHER CYLINDER GRINDER (CURRENT) DRUG THERAPY 07/01/2016 MONICA ROJAS [...] 08/19/2016 MONICA ROJAS MD Ot Z79.899 OTHER CYLINDER GRINDER (CURRENT) DRUG THERAPY 08/19/2016 MONICA ROJAS [...] 08/20/2016 MONICA ROJAS MD Ot Z79.899 OTHER CARE HOME (CURRENT) DRUG THERAPY 08/20/2016 MONICA ROJAS MD Ot Z93.3 COLOSTOMY STATUS 08/20/2016 MONICA ROJAS MD Ot Z96.41 PRESENCE OF INSULIN PUMP (EXTERNAL) (INT 08/21/2016 MONICA ROJAS MD Ot 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, INTRA-ABD 08/21/2016 MONICA ROJAS MD Ot 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, INTRA-ABD 09/02/2016 MONICA ROJAS MD Ot 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, UNSPE 09/02/2016 MONICA ROJAS MD Ot E11.9 TYPE 2 DIABETES MELLITUS WITHOUT COMPLIC 09/02/2016 MONICA ROJAS MD Ot E78.5 HYPERLIPIDEMIA, UNSPECIFIED 09/02/2016 MONICA ROJAS MD Ot I10 ESSENTIAL (PRIMARY) HYPERTENSION 09/02/2016 MONICA ROJAS MD Ot Z79.899 OTHER CYLINDER GRINDER (CURRENT) DRUG THERAPY 09/02/2016 MONICA ROJAS [...] 09/24/2016 MONICA ROJAS MD Ot Z79.899 OTHER CYLINDER GRINDER (CURRENT) DRUG THERAPY 09/24/2016 MONICA ROJAS [...] 11/30/2016 MONICA ROJAS MD Ot Z79.899 OTHER CYLINDER GRINDER (CURRENT) DRUG THERAPY 11/30/2016 MONICA ROJAS MD Ot Z93.3 COLOSTOMY STATUS 11/30/2016 MONICA ROJAS MD Ot Z96.41 PRESENCE OF INSULIN PUMP (EXTERNAL) (INT 03/24/2017 Davis Caldera W 786.59 OTHER CHEST [...] EXAMINATION 07/14/2017 KEREN ALBERTO MD Ot V72.81 RXUN-ITI-CTSBYPPAC CARDIOVASCULAR 07/14/2017 KEREN ALBERTO MD Ot V74.8 SCREEN-BACTERIAL DIS NEC 07/14/2017 JENNIFER DOMINGUEZ GLUE REEL OPERATOR Ot 784.2 SWELLING IN HEAD NECK 07/14/2017 [...] LYMPHOMA, UNSP SITE, EXTRANOD 07/14/2017 NATANAEL GALVAN PHY THERAPIST Ot 202.80 OTH LYMPHOMAS EXTRANODAL SOLID ORGAN U 07/14/2017 NATANAEL GALVAN PHY THERAPIST Ot 250.00 DIAB GER WO COMPL, TYPE II OR UNSPEC TY 07/14/2017 NATANAEL GALVAN PHY THERAPIST Ot 272.4 HYPERLIPIDEMIA NEC/NOS 07/14/2017 NATANAEL GALVAN PHY THERAPIST Ot 356.9 IDIO PERIPH NEURPTHY NOS 07/14/2017 NATANAEL GALVAN PHY THERAPIST Ot 401.9 HYPERTENSION NOS 07/14/2017 NATANAEL GALVAN PHY THERAPIST Ot 564.00 UNSPEC CONSTIPATION 07/14/2017 NATANAEL GALVAN PHY THERAPIST Ot 714.0 RHEUMATOID ARTHRITIS 07/14/2017 NATANAEL GALVAN PHY THERAPIST Ot V44.3 COLOSTOMY STATUS 07/14/2017 NATANAEL GALVAN PHY THERAPIST Ot V45.85 INSULIN PUMP STATUS 07/14/2017 NATANAEL GALVAN PHY THERAPIST Ot V58.69 OTH MED,LT,CURRENT USE 07/14/2017 CRYSTAL [...] 07/14/2017 MONICA ROJAS MD Ot Z79.899 OTHER CYLINDER GRINDER (CURRENT) DRUG THERAPY 07/14/2017 MONICA ROJAS [...] EXAMINATION 07/14/2017 KEREN ALBERTO MD Ot V72.81 VWTO-RCJ-MYMULBPIY CARDIOVASCULAR 07/14/2017 KEREN ALBERTO MD Ot V74.8 SCREEN-BACTERIAL DIS NEC 07/14/2017 JENNIFER DOMINGUEZ GLUE REEL OPERATOR Ot 784.2 SWELLING IN HEAD NECK 07/14/2017 [...] LYMPHOMA, UNSP SITE, EXTRANOD 07/14/2017 NATANAEL GALVAN PHY THERAPIST Ot 202.80 OTH LYMPHOMAS EXTRANODAL SOLID ORGAN U 07/14/2017 NATANAEL GALVAN PHY THERAPIST Ot 250.00 DIAB GER WO COMPL, TYPE II OR UNSPEC TY 07/14/2017 NATANAEL GALVAN PHY THERAPIST Ot 272.4 HYPERLIPIDEMIA NEC/NOS 07/14/2017 NATANAEL GALVAN PHY THERAPIST Ot 356.9 IDIO PERIPH NEURPTHY NOS 07/14/2017 NATANAEL GALVAN PHY THERAPIST Ot 401.9 HYPERTENSION NOS 07/14/2017 NATANAEL GALVAN PHY THERAPIST Ot 564.00 UNSPEC CONSTIPATION 07/14/2017 NATANAEL GALVAN PHY THERAPIST Ot 714.0 RHEUMATOID ARTHRITIS 07/14/2017 NATANAEL GALVAN PHY THERAPIST Ot V44.3 COLOSTOMY STATUS 07/14/2017 NATANAEL GALVAN PHY THERAPIST Ot V45.85 INSULIN PUMP STATUS 07/14/2017 NATANAEL GALVAN PHY THERAPIST Ot V58.69 OTH MED,LT,CURRENT USE 07/14/2017 CRYSTAL [...] UNSPECIFIED B-CELL LYMPHOMA, UNSPECIFIED 07/14/2017 MIO RODRIGUEZ BRICK SORTER Ot C83.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, UNSPECIFI [...] ROJAS MD Ot E78.5 HYPERLIPIDEMIA, UNSPECIFIED 07/14/2017 MONCIA ROJAS MD Ot I10 ESSENTIAL (PRIMARY) HYPERTENSION 07/14/2017 CRYSTAL JURADO, MONICA Abdalla Ot Z79.899 OTHER CYLINDER GRINDER (CURRENT) DRUG THERAPY 07/14/2017 MONICA ROJAS [...] EXAMINATION 07/14/2017 KEREN ALBERTO MD Ot V72.81 QPIR-OJY-JFEATIWUM CARDIOVASCULAR 07/14/2017 KEREN ALBERTO MD Ot V74.8 SCREEN-BACTERIAL DIS NEC 07/14/2017 JENNIFER DOMINGUEZ GLUE REEL OPERATOR Ot 784.2 SWELLING IN HEAD NECK 07/14/2017 [...] LYMPHOMA, UNSP SITE, EXTRANOD 07/14/2017 GALVANNATANAEL Marquez PHY THERAPIST Ot 202.80 OTH LYMPHOMAS EXTRANODAL SOLID ORGAN U 07/14/2017 GALVANNATANAEL Marquez PHY THERAPIST Ot 250.00 DIAB GER WO COMPL, TYPE II OR UNSPEC TY 07/14/2017 MANDY NATANAEL Marquez PHY THERAPIST Ot 272.4 HYPERLIPIDEMIA NEC/NOS 07/14/2017 MANDY NATANAEL Marquez PHY THERAPIST Ot 356.9 IDIO PERIPH NEURPTHY NOS 07/14/2017 GALVAN NATANAEL Marquez PHY THERAPIST Ot 401.9 HYPERTENSION NOS 07/14/2017 MANDY NATANAEL Marquez PHY THERAPIST Ot 564.00 UNSPEC CONSTIPATION 07/14/2017 MANDY NATANAEL Marquez PHY THERAPIST Ot 714.0 RHEUMATOID ARTHRITIS 07/14/2017 MANDY NATANAEL Marquez PHY THERAPIST Ot V44.3 COLOSTOMY STATUS 07/14/2017 MANDY NATANAEL Marquez PHY THERAPIST Ot V45.85 INSULIN PUMP STATUS 07/14/2017 MANDY NATANAEL Marquez PHY THERAPIST Ot V58.69 OTH MED,LT,CURRENT USE 07/14/2017 CRYSTAL [...] UNSPECIFIED B-CELL LYMPHOMA, UNSPECIFIED 07/14/2017 MIO RODRIGUEZ BRICK SORTER Ot C83.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, UNSPECIFI [...] 07/14/2017 MONICA ROJAS MD Ot Z79.899 OTHER CARE HOME (CURRENT) DRUG THERAPY 07/14/2017 MONICA ROJAS MD [...] EXAMINATION 07/14/2017 KEREN ALBERTO MD Ot V72.81 XBDM-RAJ-SNCFFOJAF CARDIOVASCULAR 07/14/2017 KEREN ALBERTO MD Ot V74.8 SCREEN-BACTERIAL DIS NEC 07/14/2017 JENNIFER DOMINGUEZ GLUE REEL OPERATOR Ot 784.2 SWELLING IN HEAD NECK 07/14/2017 [...] LYMPHOMA, UNSP SITE, EXTRANOD 07/14/2017 NATANAEL GALVAN PHY THERAPIST Ot 202.80 OTH LYMPHOMAS EXTRANODAL SOLID ORGAN U 07/14/2017 NATANAEL GALVAN PHY THERAPIST Ot 250.00 DIAB GER WO COMPL, TYPE II OR UNSPEC TY 07/14/2017 NATANAEL GALVAN PHY THERAPIST Ot 272.4 HYPERLIPIDEMIA NEC/NOS 07/14/2017 NATANAEL GALVAN PHY THERAPIST Ot 356.9 IDIO PERIPH NEURPTHY NOS 07/14/2017 NATANAEL GALVAN PHY THERAPIST Ot 401.9 HYPERTENSION NOS 07/14/2017 NATANAEL GALVAN PHY THERAPIST Ot 564.00 UNSPEC CONSTIPATION 07/14/2017 NATANAEL GALVAN PHY THERAPIST Ot 714.0 RHEUMATOID ARTHRITIS 07/14/2017 NATANAEL GALVAN PHY THERAPIST Ot V44.3 COLOSTOMY STATUS 07/14/2017 NATANAEL GALVAN PHY THERAPIST Ot V45.85 INSULIN PUMP STATUS 07/14/2017 NATANAEL GALVAN PHY THERAPIST Ot V58.69 OT MED,LT,CURRENT USE 07/14/2017 CRYSTAL [...] UNSPECIFIED B-CELL LYMPHOMA, UNSPECIFIED 07/14/2017 MIO RODRIGUEZ BRICK SORTER Ot C83.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, UNSPECIFI [...] 07/14/2017 MONICA ROJAS MD Ot Z79.899 OTHER CARE HOME (CURRENT) DRUG THERAPY 07/14/2017 MONICA ROJAS MD [...] 07/14/2017 MONICA ROJAS MD Ot Z79.899 OTHER CARE HOME (CURRENT) DRUG THERAPY 07/14/2017 MONICA ROJAS MD [...] INGRAM MD, Ot Z88.8 ALLERGY STATUS TO [facility] DRUG/MEDS/BIOL SUB 07/28/2017 NILO MCFARLAND MD Ot 388.70 OTALGIA NOS 07/28/2017 NILO MCFARLAND MD Ot 723.1 CERVICALGIA 07/28/2017 NILO MCFARLAND MD Ot 787.21 DYSPHAGIA, ORAL PHASE 07/28/2017 KEREN ALBERTO MD Ot 600.00 HYPERTROPHY (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 URI 07/28/2017 KEREN ALBERTO MD Ot V72.63 PRE-PROCEDURAL LABORATORY EXAMINATION 07/28/2017 KEREN ALBERTO MD Ot V72.81 WLVL-KIA-KTEVVFBCS CARDIOVASCULAR 07/28/2017 KEREN ALBERTO MD Ot V74.8 [...] LYMPHOMA, UNSP SITE, EXTRANOD 07/28/2017 NATANAEL GALVAN PHY THERAPIST Ot 202.80 OTH LYMPHOMAS EXTRANODAL SOLID ORGAN U 07/28/2017 NATANAEL GALVAN PHY THERAPIST Ot 250.00 DIAB GER WO COMPL, TYPE II OR UNSPEC TY 07/28/2017 NATANAEL GALVAN PHY THERAPIST Ot 272.4 HYPERLIPIDEMIA NEC/NOS 07/28/2017 NATANAEL GALVAN PHY THERAPIST Ot 356.9 IDIO PERIPH NEURPTHY NOS 07/28/2017 NATANAEL GALVAN PHY THERAPIST Ot 401.9 HYPERTENSION NOS 07/28/2017 NATANAEL GALVAN PHY THERAPIST Ot 564.00 UNSPEC CONSTIPATION 07/28/2017 NATANAEL GALVAN PHY THERAPIST Ot 714.0 RHEUMATOID ARTHRITIS 07/28/2017 NATANAEL GALVAN PHY THERAPIST Ot V44.3 COLOSTOMY STATUS 07/28/2017 NATANAEL GALVAN PHY THERAPIST Ot V45.85 INSULIN PUMP STATUS 07/28/2017 NATANAEL GALVAN PHY THERAPIST Ot V58.69 OTH MED,LT,CURRENT USE 07/28/2017 CRYSTAL [...] UNSPECIFIED B-CELL LYMPHOMA, UNSPECIFIED 07/28/2017 MIO RODRIGUEZ BRICK SORTER Ot C83.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, UNSPECIFI [...] 07/28/2017 MONICA ROJAS MD Ot Z79.899 OTHER CARE HOME (CURRENT) DRUG THERAPY 07/28/2017 MONICA ROJAS MD [...] ENCOUNTER FOR SCREENING FOR OTHER BACTER 07/28/2017 CAROLE INGRAM MD Ot Z53.9 PROCEDURE AND TREATMENT NOT CARRIED OUT, 07/28/2017 CAROLE INGRAM MD Ot Z88.8 ALLERGY STATUS TO [facility]/MEDS/BIOL SUB 07/28/2017 CAROLE INGRAM MD Ot I25.10 ATHSCL HEART DISEASE OF [place] CORONARY 07/28/2017 CAROLE INGRAM MD Ot I34.0 NONRHEUMATIC MITRAL (VALVE) INSUFFICIENC 07/28/2017 CAROLE INGRAM MD Ot I38 ENDOCARDITIS, VALVE UNSPECIFIED 07/28/2017 CAROLE INGRAM MD Ot I50.22 CHRONIC SYSTOLIC (CONGESTIVE) HEART FAIL 07/28/2017 CAROLE INGRAM MD Ot R82.90 UNSPECIFIED ABNORMAL FINDINGS IN URINE 07/28/2017 CAROLE INGRAM MD Ot Z11.2 ENCOUNTER FOR SCREENING FOR OTHER BACTER 07/30/2017 CAROLE INGRAM MD Ot I25.10 ATHSCL HEART DISEASE OF [place] CORONARY 07/30/2017 CAROLE INGRAM MD Ot I34.0 NONRHEUMATIC MITRAL (VALVE) INSUFFICIENC 07/30/2017 CAROLE INGRAM MD Ot I38 ENDOCARDITIS, VALVE UNSPECIFIED 07/30/2017 CAROLE INGRAM MD Ot I50.22 CHRONIC SYSTOLIC (CONGESTIVE) HEART FAIL 07/30/2017 CAROLE INGRAM MD Ot R82.90 UNSPECIFIED ABNORMAL FINDINGS IN URINE 07/30/2017 CAROLE INGRAM MD Ot Z11.2 ENCOUNTER FOR SCREENING FOR OTHER BACTER 08/03/2017 CAROLE INGRAM MD Ot E78.2 MIXED HYPERLIPIDEMIA 08/03/2017 CAROLE INGRAM MD Ot I08.3 COMB RHEUMATIC DISORD OF MITRAL, AORTIC 08/03/2017 CAROLE INGRAM MD Ot I50.9 HEART FAILURE, UNSPECIFIED 08/03/2017 CAROLE INGRAM MD Ot R06.09 OTHER FORMS OF DYSPNEA 08/03/2017 CAROLE INGRAM MD Ot R07.89 OTHER CHEST PAIN 08/09/2017 CAROLE INGRAM MD Ot E11.9 TYPE 2 DIABETES MELLITUS WITHOUT COMPLIC 08/09/2017 CAROLE INGRAM MD Ot I34.0 NONRHEUMATIC MITRAL (VALVE) INSUFFICIENC 08/09/2017 CAROLE INGRAM MD Ot I34.1 NONRHEUMATIC MITRAL (VALVE) PROLAPSE 08/09/2017 CAROLE INGRAM MD Ot I50.9 HEART FAILURE, UNSPECIFIED 08/09/2017 CAROLE INGRAM MD Ot R82.90 UNSPECIFIED ABNORMAL FINDINGS IN URINE 08/09/2017 CAROLE INGRAM MD Ot Z11.2 ENCOUNTER FOR SCREENING FOR OTHER BACTER 08/09/2017 CAROLE INGRAM MD Ot Z53.9 PROCEDURE AND TREATMENT NOT CARRIED OUT, 08/09/2017 CAROLE INGRAM MD Ot Z88.8 ALLERGY STATUS TO OT DRUG/MEDS/BIOL SUB 09/01/2017 CAROLE INGRAM MD Ot E78.2 MIXED HYPERLIPIDEMIA 09/01/2017 CAROLE INGRAM MD Ot I08.3 COMB RHEUMATIC DISORD OF MITRAL, AORTIC 09/01/2017 CAROLE INGRAM MD Ot I50.9 HEART FAILURE, UNSPECIFIED 09/01/2017 CAROLE INGRAM MD Ot R06.09 OTHER FORMS OF DYSPNEA 09/01/2017 CAROLE INGRAM MD Ot R07.89 OTHER CHEST PAIN 09/29/2017 CAROLE INGRAM MD Ot E11.9 TYPE 2 DIABETES MELLITUS WITHOUT COMPLIC 09/29/2017 CAROLE INGRAM MD Ot I34.0 NONRHEUMATIC MITRAL (VALVE) INSUFFICIENC 09/29/2017 CAROLE INGRAM MD Ot I34.1 NONRHEUMATIC MITRAL (VALVE) PROLAPSE 09/29/2017 CAROLE INGRAM MD Ot I50.9 HEART FAILURE, UNSPECIFIED 09/29/2017 CAROLE INGRAM MD Ot R82.90 UNSPECIFIED ABNORMAL FINDINGS IN URINE 09/29/2017 CAROLE INGRAM MD Ot Z11.2 ENCOUNTER FOR SCREENING FOR OTHER BACTER 09/29/2017 CAROLE INGRAM MD Ot Z53.9 PROCEDURE AND TREATMENT NOT CARRIED OUT, 09/29/2017 CAROLE INGRAM MD Ot Z88.8 ALLERGY STATUS TO OT DRUG/MEDS/BIOL SUB Procedures Code Description Performed By [...] 32.4 g/dL 32.0-36.0 MCV 84.5 fL 80.0-97.0 [place]% 14.3 % 0.0-12.0 MPV 9.7 fL 7.4-10.0 [place]% 67.5 % 37.0-80.0 Plt 187 K/uL 150-400 RBC 4.83 M/uL 4.20-5.40 RDW 17.9 % 11.6-14.8 WBC 7.55 K/uL 5.00-10.00 Zhao 5.10 K/uL 2.00-6.90 [place] 1.1 K/uL 0.0-0.9 Baso 0.1 K/uL 0.0-0.2 [...] Staphylococcus aureus (MRSA) screening culture NEG NRG Complete urinalysis with reflex to culture - 07/28/17 07:24 Urine color determination YELLOW NRG Urine clarity determination CLEAR NRG Urine pH measurement by test strip 6 5-9 Specific gravity of urine by test strip 1.020 1.016- 1.022 Urine protein assay by test strip, semi-quantitative 3+ NEGATIVE Urine glucose detection by automated test strip 1+ NEGATIVE Erythrocytes detection in urine sediment by light microscopy 3+ NEGATIVE Urine ketones detection by automated test strip 1+ NEGATIVE Urine nitrite detection by test strip NEGATIVE NEGATIVE Urine total bilirubin detection by test strip 1+ NEGATIVE Urine urobilinogen measurement by automated test [...] urine sediment by light microscopy 0-2 NRG Crystals detection in urine sediment by light microscopy NONE NRG Casts detection in urine sediment by light microscopy NONE NRG Mucus detection in urine sediment by light microscopy MODERATE NRG Complete urinalysis with reflex to culture YES NRG Bacterial urine culture - 07/28/17 07:24 Bacterial urine culture NG NRG Automated blood complete blood count (hemogram) panel - 07/28/17 07:35 Blood leukocytes automated count (number/volume) 4.1 10*3/uL 4.3-11.0 Blood erythrocytes automated count (number/volume) 4.61 10*6/uL 4.35-5.85 Venous blood hemoglobin measurement (mass/volume) 14.1 g/dL 13.3-17.7 Blood hematocrit (volume fraction) 42 % 40-54 Automated erythrocyte mean corpuscular volume 92 [foz_us] 80-99 Automated erythrocyte mean corpuscular hemoglobin (mass per erythrocyte) 31 pg 25-34 Automated erythrocyte mean corpuscular hemoglobin concentration measurement ( mass/volume) 33 g/dL 32-36 Automated erythrocyte distribution width ratio 17.6 % 10.0-14.5 Automated blood platelet count (count/volume) 184 10*3/uL 130-400 Automated blood platelet mean volume measurement 10.2 [foz_us] 7.4-10.4 PT panel in platelet poor plasma by coagulation assay - 07/28/17 07:35 Prothrombin time (PT) in platelet poor plasma by coagulation assay 13.1 s 12.2-14.7 INR in platelet poor plasma or blood by coagulation assay 1.0 0.8-1.4 Activated partial thromboplastin time (aPTT) in platelet poor plasma bycoagulation assay - 07/28/17 07:35 Activated partial thromboplastin time (aPTT) in platelet poor plasma bycoagulation assay 26 s 24-35 Comprehensive metabolic panel - 07/28/17 07:35 Serum or plasma sodium measurement (moles/volume) 138 mmol/L 135-145 Serum or plasma potassium measurement (moles/volume) 3.9 mmol/L 3.6-5.0 Serum or plasma chloride measurement (moles/volume) 103 mmol/L 98-107 Carbon dioxide 27 mmol/L 21-32 Serum or plasma anion gap determination (moles/volume) 8 mmol/L 5-14 Serum or plasma urea nitrogen measurement (mass/volume) 22 mg/dL 7-18 Serum or plasma creatinine measurement (mass/volume) 1.10 mg/dL 0.60-1.30 Serum or plasma urea nitrogen/creatinine mass ratio 20 NRG Serum or plasma creatinine measurement with calculation of estimated glomerular filtration rate > NRG Serum or plasma glucose measurement (mass/volume) 79 mg/dL 70-105 Serum or plasma calcium measurement (mass/volume) 8.8 mg/dL 8.5-10.1 Serum or plasma total bilirubin measurement (mass/volume) 1.1 mg/dL 0.1-1.0 Serum or plasma alkaline phosphatase measurement (enzymatic activity/volume) 80 U/L 40-136 Serum or plasma aspartate aminotransferase measurement (enzymatic activity/ volume) 25 U/L 5-34 Serum or plasma alanine aminotransferase measurement (enzymatic activity/volume ) 19 U/L 0-55 Serum or plasma protein measurement (mass/volume) 6.0 g/dL 6.4-8.2 Serum or plasma albumin measurement (mass/volume) 3.5 g/dL 3.2-4.5 Methicillin resistant Staphylococcus aureus (MRSA) screening culture - 07:35 Methicillin resistant Staphylococcus aureus (MRSA) screening culture NEG NRG Encounters ACCT No. Visit Date/Time Discharge Status Pt. Type Provider Facility Loc./Unit Complaint [id number] 07/28/2017 07:11:00 07/28/2017 13:30:00 DIS Outpatient CAROLE INGRAM MD [facility] CHF,SEVERE MR,MVP,DM [id number] 07/14/2017 10:50:00 07/14/2017 23:59:59 CLS Outpatient CAROLE INGRAM MD [facility] CHF [id number] 07/14/2017 10:45:00 07/14/2017 23:59:59 CLS Outpatient CAROLE INGRAM MD [facility] CARD I50.9 CHF [id number] 12/01/2016 00:12:00 12/01/2016 23:59:59 CLS Preadmit MONICA ROJAS MD [facility] ONC [id number] 10/28/2016 13:01:00 11/30/2016 00:01:00 DIS Outpatient MONICA ROJAS MD [facility] ONC [id number] 08/04/2016 10:48:00 08/19/2016 00:01:00 DIS Outpatient MONICA ROJAS MD [facility] ONC [id number] 07/27/2016 09:44:00 07/27/2016 23:59:59 CLS Outpatient MONICA ROJAS MD [facility] RAD C83.33 [id number] 06/18/2016 10:12:00 06/18/2016 23:59:59 CLS Outpatient Lindsay CRONIN MD [facility] LAB [id number] 06/06/2016 02:51:00 06/06/2016 04:20:00 DIS Emergency GLORIA CALERO MD [facility] ER LOW BLOOD SUGAR [id number] 04/16/2016 09:29:00 04/22/2016 00:01:00 DIS Outpatient MONICA ROJAS MD [facility] ONC [id number] 03/18/2016 08:21:00 03/18/2016 23:59:59 CLS Outpatient CAROLE INGRAM MD [facility] CARD CHEST PAIN SYNDROME [id number] 03/02/2016 14:11:00 03/02/2016 16:50:00 DIS Emergency ITALIA BASS MD [facility] ER LEFT FLANK PAIN [id number] 03/02/2016 15:40:00 03/02/2016 15:40:00 CAN Emergency ITALIA BASS MD [facility] ER [id number] 02/20/2016 07:50:00 02/20/2016 23:59:59 CLS Outpatient CAROLE INGRAM MD [facility] CARD CHEST PAIN SYNDROME [id number] 01/21/2016 07:58:00 01/21/2016 23:59:59 CLS Outpatient MIO RODRIGUEZ APRN [facility] RAD DIFFUSE LARGE B CELL LYMPHOMA [id number] 12/12/2015 10:53:00 01/13/2016 07:59:00 DIS Outpatient MONICA ROJAS MD [facility] ONC [id number] 11/25/2015 13:44:00 11/25/2015 23:59:59 CLS Outpatient MONICA ROJAS MD [facility] RAD [id number] 10/31/2015 13:26:00 11/13/2015 00:01:00 DIS Outpatient MONICA ROJAS MD [facility] ONC [id number] 08/16/2015 13:09:00 08/16/2015 23:59:59 CLS Outpatient MONICA ROJAS MD [facility] RAD SEVERE RUQ PAIN ADBOMINAL PAIN [id number] 08/07/2015 13:56:00 08/08/2015 00:01:00 DIS Outpatient MONICA ROJAS MD [facility] ONC [id number] 07/17/2015 07:25:00 07/17/2015 23:59:59 CLS Outpatient CAROLE INGRAM MD [facility] LAB MR,DIABETES,CHEST PAIN SYNDROME [id number] 07/16/2015 09:23:00 07/16/2015 23:59:59 CLS Outpatient CAROLE INGRAM MD [facility] CARD CHEST PAIN SYNDROME,MR, DIABETES MALTOSIS TYPE 2 [id number] 07/02/2015 07:44:00 07/02/2015 23:59:59 CLS Outpatient MONICA ROJAS MD [facility] RAD MALIGNANT LYMPHOMA, DIFFUSED NON-HODGKINS LYMPHOMA [id number] 06/27/2015 11:04:00 06/27/2015 23:59:59 CLS Outpatient MONICA ROJAS MD [facility] CARD MALIGNANT LYMPHOMA, DIFFUSED NON-HODGKINS LYMPHOMA [id number] 06/11/2015 08:35:00 06/11/2015 23:59:59 CLS Outpatient MONICA ROJAS MD [facility] RAD NON HODGKINS LYMPOMA LARGE CELL [id number] 03/20/2015 09:00:00 04/11/2015 00:01:00 DIS Outpatient MONICA ROJAS MD [facility] ONC [id number] 03/08/2015 08:45:00 03/08/2015 23:59:59 CLS Outpatient MONICA ROJAS MD [facility] RAD DIFFUSED NON HODGKINS LYMPHOMA [id number] 11/01/2014 15:34:00 12/12/2014 00:01:00 DIS Outpatient MONICA ROJAS MD [facility] ONC [id number] 10/09/2014 09:28:00 10/09/2014 23:59:59 CLS Outpatient MANDY NATANAEL ROBERTSON [facility] ONC [id number] 09/10/2014 09:50:00 09/10/2014 23:59:59 CLS Outpatient MONICA ROJAS MD [facility] RAD NONHODGKINS LYMPHOMA, RESTAGING,DIZZINESS [id number] 08/29/2014 15:26:00 09/09/2014 00:01:00 DIS Outpatient MONICA ROJAS MD [facility] ONC [id number] 07/25/2014 11:33:00 08/13/2014 12:30:00 DIS Outpatient NILO ALCALA MD [facility] WOUNDCARE [id number] 07/25/2014 10:21:00 07/25/2014 23:59:59 CLS Outpatient MONICA ROJAS MD [facility] RAD LYMPHOMA [id number] 05/21/2014 16:31:00 05/21/2014 23:59:59 CLS Outpatient BRANDO CAZARES MD [facility] HH UTI [id number] 04/18/2014 18:00:00 04/21/2014 14:00:00 DIS Inpatient MONICA ROJAS MD [facility] SURGICAL PELVIC MASS WITH RIGHT URETERAL OBSTRUCTION [id number] 04/18/2014 08:19:00 04/18/2014 23:59:59 CLS Outpatient KEREN ALBERTO MD [facility] RAD PELVIC PAIN [id number] 04/12/2014 08:23:00 04/12/2014 23:59:59 CLS Outpatient KEREN ALBERTO MD [facility] LAB PELVIC PAIN [id number] 03/26/2014 16:25:00 03/26/2014 18:20:00 DIS Emergency MANPREET OVERTON APRN [facility] ER DIFFICULTY URINATING [id number] 02/22/2014 06:49:00 02/22/2014 23:59:59 CLS Outpatient JENNIFER DOMINGUEZ Lindsay 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 REEL 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 [facility] RAD NECK MASS [id number] 08/15/2013 08:21:00 08/15/2013 10:25:00 DIS Emergency ETTA ROMANO DO [facility] ER BLOOD IN URINE [id number] 08/01/2013 07:00:00 08/02/2013 11:20:00 DIS Outpatient KEREN ALBERTO MD [facility] SDC BPH [id number] 07/27/2013 11:47:00 07/27/2013 23:59:59 CLS Outpatient KEREN ALBERTO MD [facility] PREOP BPH [id number] 10/28/2012 07:40:00 10/28/2012 23:59:59 CLS Outpatient NILO MCFARLAND MD [facility] RAD ACUTE NECK AND EAR PAIN, PAINFUL SWALLOWING [id number] 01/14/2016 09:57:00 Document Registration [id number] 10/27/2015 02:28:00 Document Registration [id number] 06/19/2014 13:50:00 Document Registration [id number] 06/18/2014 10:04:00 Document Registration [id number] 06/14/2014 11:38:00 Document Registration [id number] 06/13/2014 09:22:00 Document Registration [id number] 05/28/2014 13:20:00 Document Registration [id number] 05/28/2014 13:12:00 Document Registration [id number] 03/02/2016 15:50:00 Document Registration [id number] 01/15/2015 13:00:34 ACT Document Registration [id number] 04/13/2017 11:00:00 04/13/2017 23:59:00 DIS Outpatient Davis Caldera [id number] 04/12/2017 10:45:00 04/12/2017 23:59:00 DIS Outpatient Davis Caldera [id number] 03/24/2017 15:15:00 03/24/2017 23:59:00 DIS Outpatient Davis Caldera [id number] 03/08/2016 00:00:00 03/08/2016 00:00:00 CAN Outpatient Davis Caldera [id number] 03/06/2016 11:41:00 03/06/2016 23:59:00 DIS Outpatient Adan Etta [id number] 03/03/2016 17:11:00 03/03/2016 23:59:00 DIS Outpatient Davis Caldera [id number] 03/03/2016 11:26:00 03/03/2016 23:59:00 DIS Outpatient Davis Caldera [id number] 03/02/2016 15:34:00 Document Registration [id number] 01/18/2017 09:00:00 01/18/2017 23:59:59 [facility] Outpatient ELZA VALERO L[facility]
--- NOTE | 2018-03-01 19:14 | ED Head Injury ---
General Stated Complaint: CUT ABOVE R EYE Source: patient, old records, spouse Exam Limitations: intoxication History of Present Illness Date Seen by Provider: Mar 01, 2018 Time Seen by Provider: 19:03 Initial Comments PT ARRIVES VIA POV FROM HOME WAS PUTTING WOOD IN FIREPLACE AND FELL,HITTING RIGHT BROW AREA ON UNKNOWN PART OF FIREPLACE. DENIES LOSS OF CONSCIOUSNESS DENIES ANY VISION CHANGES DENIES NECK PAIN DENIES PARESTHESIAS OR MOTOR DEFICITS PT TAKES ASPIRIN DAILY PT ALSO TAKES PREDNISONE DAILY FOR R.A. PT ALSO DRINKS DAILY AND HAS HAD ABOUT A PINT OF VODKA TODAY--STATES "ENOUGH TO GET YOU FEELING GOOD" PT DRINKS DAILY LAST TETANUS SHOT UNKNOWN PCP: DR. WESTBROOK Allergies and Home Medications Allergies Coded Allergies: acetaminophen (Verified Allergy, Intermediate, RASH, 07/14/17) hydrocodone (Verified Allergy, Intermediate, RASH, 07/14/17) oxycodone (Verified Allergy, Intermediate, RASH, 07/14/17) formaldehyde (Verified Allergy, Unknown, 12/20/07) Home Medications Aspirin 81 Mg Tablet.dr, 81 MG PO DAILY, (Reported) Hydrochlorothiazide 25 Mg Tablet, 25 MG PO DAILY, (Reported) Insulin Aspart 100 Unit/1 Ml Susp, PER INSULIN PUMP, (Reported) Lenalidomide 10 Mg Capsule, 10 MG PO UD, (Reported) DAILY AT BEDTIME X 21 DAYS THEN OFF 7 DAYS THEN REPEAT Magnesium Oxide 400 Mg Tablet, 400 MG PO DAILY, (Reported) Melatonin 10 Mg Capsule, 10 MG PO HS, (Reported) Metoprolol Succinate 25 Mg Tab.er.24h, 25 MG PO DAILY, (Reported) Prednisone 5 Mg Tablet, 5 MG PO DAILY, (Reported) Sacubitril/Valsartan 1 Each Tablet, 1 TAB PO BID, (Reported) Sulfamethoxazole/Trimethoprim 1 Each Tablet, 1 EACH PO BID Prescribed by: OLIVIA ROMANO on 03/01/182041 Patient Home Medication List Home Medication List Reviewed: Yes Review of Systems Review of Systems Constitutional: no symptoms reported Eyes: No Symptoms Reported Ears, Nose, Mouth, Throat: no symptoms reported Respiratory: no symptoms reported Cardiovascular: no symptoms reported Gastrointestinal: no symptoms reported Genitourinary: no symptoms reported Musculoskeletal: no symptoms reported Skin: see HPI Psychiatric/Neurological: No Symptoms Reported; Denies Cognitive Dysfunction, Denies Headache, Denies Numbness, Denies Tingling Endocrine: No Symptoms Reported Hematologic/Lymphatic: No Symptoms Reported Past Btgmaog-Rntswc-Izownq Hx Patient Social History Alcohol Use: Regular Use (AT LEAST A PINT OF VODKA/DAY) Alcohol Beverage of Choice: Vodka Recreational Drug Use: No Smoking Status: Former Smoker (3/4 PPD) Type Used: Cigarettes Former Smoker, Quit: Jul 28, 1990 Recent Foreign Travel: No Contact w/Someone Who Travel: No Recent Hopitalizations: No Immunizations Up To Date Tetanus Booster (TDap): Unknown Date of Pneumonia Vaccine: Aug 02, 2011 Date of Influenza Vaccine: Feb 03, 2014 Seasonal Allergies Seasonal Allergies: No Past Medical History Surgeries: Yes (COLON RESECTION WITH COLOSTOMY AND LATER TAKEDOWN; CYSTOSCOPIES ; CARDIAC CATHS--NO INTERVENTIONS; PORT PLACEMENT FOR CHEMO. RIGHT ANKLE SURGERY ; MULTIPLE FOOT SURGERIES; LEFT INGUINAL HERNIA REPAIR; RIGHT INGUINAL HERNIA WITH 3 VENTRAL HERNIAS REPAIRED AT SAME TIME; PICC LINE RIGHT UPPER ARM. PORT PLACEMENT; ) Abdominal, Bowel Surgery, Cardiac, Orthopedic, Penile Implant, Renal, Transurethral Resection, Vascular Surgery Respiratory: No Cardiac: Yes (CARDIAC CATHS--MILD TO MODERATE DISEASE, NO INTERVENTION; ) Coronary Artery Disease, Heart Murmur, Hypertension, Valvular Heart Disease Neurological: Yes Neuropathy Reproductive Disorders: No Sexually Transmitted Disease: No HIV/AIDS: No Genitourinary: Yes (TURP, CYSTOSCOPIES; URETERAL OBSTRUCTION DUE TO LYMPHOMA) Benign Prostatic Hyperpl, Prostate Problems, Bladder Infection Gastrointestinal: Yes (KNOWN GALLSTONES, NO SURGERY; BOWEL OBSTRUCTION SECONDARY TO LYMPHOMA--S/P COLON RESECTION WITH COLOSTOMY AND LATER TAKEDOWN; CHRONIC ABDOMINAL PAIN; INGUINAL HERNIA REPAIR AND RECURRENT INGUINAL HERNIA. ) Abdominal Hernia, Obstructive Bowel, Chronic Constipation, Gall Bladder Disease Musculoskeletal: Yes Rheumatoid Arthritis Endocrine: Yes Diabetes, Insulin dep HEENT: No Cancer: Yes (NON HODGKIN'S LYMPHOMA DX 2014--CURRENTLY IN REMISSION) Lymphoma Did You Recieve Any Treatments: Yes (CHEMO + AUTOLOGOUS STEM CELLS) What Type of Treatment Did You: Chemotherapy, Other Psychosocial: No Integumentary: No Adverse Reaction/Blood Tranf: No Family Medical History Congestive heart failure 19 MOTHER Family history: Diabetes mellitus 19 MOTHER No Family History of: Abdominal aortic aneurysm Alcoholism Cancer Dementia Family history: Allergy Family history: Alzheimer's disease Family history: Arthritis Family history: Asthma Family history: Breast disease Family history: Cardiovascular disease Family history: Gastrointestinal disease Family history: Thyroid disorder Myocardial infarction Psychotic disorder Seizure disorder Stroke Physical Exam Vital Signs Vital Signs - First Documented 03/01/18 19:00 Temp 98.1 Pulse 88 Resp 18 B/P (MAP) 134/87 (103) Pulse Ox 96 O2 Delivery Room Air Capillary Refill : Height, Weight, BMI Height: 5'10.00" Weight: 180lbs. 0.0oz. 81.451507wt; 25.8 BMI Method:Stated General Appearance: WD/WN, no apparent distress, other (REEKS OF ALCOHOL. SPEECH CLEAR AND GAIT STEADY, ) HEENT: PERRL/EOMI, TMs normal, other (LARGE, STELLATE, FULL THICKNESS / INCLUDING MUSCLE LACERATION ABOVE RIGHT BROW WITH ACTIVE BLEEDING--PRESSURE AND ICE APPLIED. ) Neck: non-tender, full range of motion, supple, normal inspection Cardiovascular: regular rate, rhythm, no edema Respiratory: normal breath sounds Gastrointestinal: soft Back: normal inspection, no CVA tenderness Extremities: normal inspection, normal capillary refill Psychiatric: alert, oriented x 3 Crainal Nerves: normal hearing, normal speech Coordination/Gait: normal gait Motor/Sensory: no motor deficit, no sensory deficit Skin: normal color, warm/dry, other (LARGE LACERATION ABOVE RIGHT BROW ) Procedures/Interventions Wound Location: Face (ABOVE RIGHT BROW) Wound Length (cm): 10 Wound's Depth, Shape: into muscle, irregular, stellate, sub Q Wound Explored: clean Anesthesia: Lidocaine w/ Epi (2%) Suture: Ethlion, Vicryl Suture Size: 4-0, 5-0 Number of Sutures: 21 (5-0 ETHILON SUPERFICIAL SKIN LAYER) Layer Closure?: 2 Number Deep Layer Sutures: 6 (4-0 VICRYL DEEP LAYERS) Sterile Dressing Applied?: Yes Progress/Results/Core Measures Results/Orders My Orders Orders - OLIVIA ROMANO DO Ct Head/Face/Cervical Wo (03/01/18 19:08) Dipht,Pertuss(Acell),Tet Adult (Boostrix (03/01/18 19:08) Lidocaine/Epi 2% 1:100,000 (Xylocaine/Ep (03/01/18 19:34) Rx-Trimeth/Sulfameth Ds Tab (Rx-Bactrim/ (03/01/18 20:42) Rx-Trimeth/Sulfameth Ds Tab (Rx-Bactrim/ (03/01/18 20:43) Medications Given in ED Current Medications Medications Dose Ordered Sig/Lesly Route Start Time Stop Time Status Last Admin Dose Admin Lidocaine/ Epinephrine 20 ml STK-MED ONCE .ROUTE 03/01/18 19:34 03/01/18 19:37 DC 03/01/18 19:39 20 ML Vital Signs/I&O 03/01/18 20:45 Temp 98.1 Pulse 76 Resp 16 B/P (MAP) 122/75 (91) Pulse Ox 93 O2 Delivery Room Air Diagnostic Imaging Comments CT HEAD/MAXILLOFACIALS/CERVICAL SPINE--SOFT TISSUE DEFECT RIGHT PERIORBITAL AREA. NO ACUTE INJURY, CHRONIC CHANGES--PER RADIOLOGIST REPORT @ 2035 Reviewed: Reviewed by Me Departure Impression Primary Impression: Status post fall Additional Impressions: Closed head injury without loss of consciousness Complex laceration of face CERVICAL SPINE STRAIN Enltudrmrh-gzlffffvx-bnxlqou (DPT) vaccination administered at current visit Disposition: HOME, SELF-CARE Condition: Stable Departure-Patient Inst. Referrals: KARLA WESTBROOK DO (PCP/Family) Primary Care Physician Patient Instructions: Cervical Muscle Strain (DC), Closed Head Injury (DC), Diphtheria and Tetanus Toxoids, and Acellular Pertussis Vaccine, Laceration Repair With Stitches (DC) Add. Discharge Instructions: NO ALCOHOL APPLY ICE TO AREA AT 20 MINUTE INTERVALS TYLENOL NEEDED FOR PAIN CLEAN WOUND TWICE A DAY WITH ANTIBACTERIAL SOAP AND WATER ON A Q-TIP, OTHERWISE KEEP CLEAN AND DRY SUTURES OUT IN 7 DAYS--RETURN TO ER FOR REMOVAL Scripts Sulfamethoxazole/Trimethoprim (Bactrim Ds Tablet) 1 Each Tablet 1 EACH PO BID, #20 TAB Prov: OLIVIA ROMANO DO 03/01/18 Images Head/Face Progress SEE ADDITIONAL PAPER DIAGRAMS FOR IMAGES OLIVIA ROMANO DO Mar 01, 2018 19:13
[2018-03-01] MEDS ORDERED: LIDOCAINE/EPI 2% 1:100,00 (XYLOCAINE) 20 ML VIAL ONE (19:34)
--- NOTE | 2018-03-01 19:51 | Diagnostic Imaging Report ---
PROCEDURE: CT head, face, and cervical spine without contrast. TECHNIQUE: Multiple contiguous axial images were obtained through the head, neck, and facial bones without the use of intravenous contrast. Sagittal and coronal reformations through the cervical spine and facial bones were also performed. INDICATION: History of lymphoma. Fall with trauma to the head. Laceration. COMPARISON: None FINDINGS: CT head: The ventricles and cortical sulci are diffusely prominent, compatible with age-related volume loss. There are confluent areas of abnormal, low attenuation in the periventricular white matter. This is consistent with small vessel ischemic changes; age-indeterminate. There is no prior study available for comparison. There is no midline shift or mass-effect. No acute intra-axial hemorrhage is seen. There are no abnormal areas of increased or decreased density to suggest acute hemorrhage or edema. No extra-axial masses or collections are present. The bony calvarium is intact. CT facial bones: Right-sided periorbital soft tissue defect is identified. No underlying acute osseous abnormality is seen. Bilateral zygomatic arches are intact. There is no evidence of orbital fracture on either side. Globes are symmetric. No unexpected radiopaque foreign bodies are seen. Evaluation of the paranasal sinuses demonstrates minimal opacification of posterior ethmoid air cell on the right. No other abnormal significant mucosal thickening or air-fluid levels are seen. There is no evidence of fracture of the sinuses. Bilateral nasal bones are intact. The nasal septum is deviated to the left, but this has a chronic appearance. Nasal septum is otherwise intact. Bilateral medial and lateral pterygoid plates are intact as well. Mandible is intact. There is no evidence of fracture of the alveolar ridge of the maxilla. CT cervical spine: Evaluation of the static alignment demonstrates mild grade 1 anterolisthesis at the C5-C6 level. This, however, may be related to underlying degenerative changes. There is no evidence of jumped facets. Vertebral body heights are maintained. There is no evidence of acute fracture. No bony fragments are seen within the spinal canal. There are mild multilevel degenerative changes consisting of intervertebral disc height loss with anterior and posterior disc osteophyte complex formations, as well as multilevel facet arthropathy. These changes are also greatest at the C5-C6 level. Pre-and paravertebral soft tissue structures are unremarkable. Note is made of calcified carotid atherosclerosis. Included portions of the lung apices are clear. IMPRESSION: 1. No acute intracranial abnormality. No CT evidence of mass, acute infarct or intracranial hemorrhage. 2. Small vessel ischemic changes in the periventricular and subcortical white matter; likely chronic. 3. No CT evidence of acute fracture or dislocation of the facial bones. 4. No acute fracture or dislocation of the cervical spine. 5. Degenerative changes of the cervical spine, greatest at C5-C6 level. Dictated by: Dictated on workstation # [id number]
[2018-03-01] MEDS ORDERED: SULF1TAB35 PO (20:42)
[2018-03-01] MEDS ORDERED: RX-TRIMETH/SULFA. 160-800 MG (BACTRIM DS) TAB PPK#2 PO STA (20:42)
[2018-03-01] MEDS ORDERED: RX-TRIMETH/SULFA. 160-800 MG (BACTRIM DS) TAB PPK#2 PO ONE (20:43)
[2018-03-01 20:45] VITALS: BP 122/75
== END 2018-03-01 20:45 | disposition home or self-care (01) ==
LOC: EDUNIT# 18:58 → ER 19:00
DX: S09.90XA Unspecified injury of head, initial encounter (principal); S01.81XA Laceration without foreign body of other part of head, initial encounter; S16.1XXA Strain of muscle, fascia and tendon at neck level, initial encounter; I25.10 Atherosclerotic heart disease of native coronary artery without angina pectoris; I10 Essential (primary) hypertension; M06.9 Rheumatoid arthritis, unspecified; E11.40 Type 2 diabetes mellitus with diabetic neuropathy, unspecified; Z93.3 Colostomy status; Z85.72 Personal history of non-Hodgkin lymphomas; Z82.49 Family history of ischemic heart disease and other diseases of the circulatory system; Z23 Encounter for immunization; Z87.19 Personal history of other diseases of the digestive system; Z87.448 Personal history of other diseases of urinary system; Z86.79 Personal history of other diseases of the circulatory system; Z88.6 Allergy status to analgesic agent; Z88.5 Allergy status to narcotic agent; Z88.8 Allergy status to other drugs, medicaments and biological substances; Z79.82 Long term (current) use of aspirin; Z79.52 Long term (current) use of systemic steroids; Z79.4 Long term (current) use of insulin; Z87.891 Personal history of nicotine dependence; Z90.49 Acquired absence of other specified parts of digestive tract; Z95.9 Presence of cardiac and vascular implant and graft, unspecified; Z92.21 Personal history of antineoplastic chemotherapy; Z98.890 Other specified postprocedural states; Z90.79 Acquired absence of other genital organ(s); Z90.6 Acquired absence of other parts of urinary tract
CPT/HCPCS: 12002; 70450; 70486; 72125; 90715

== ENCOUNTER 2018-08-16 04:48 | Inpatient (IN) | payer MEDICARE | END 2018-08-18 10:35 | disposition home or self-care (01) | LOC: ER 04:48 → 4TH 08-17 14:24 → ICU 07:09 | DX: I63.9 Cerebral infarction, unspecified (principal); R47.01 Aphasia; R45.1 Restlessness and agitation; F10.29 Alcohol dependence with unspecified alcohol-induced disorder; C81.90 Hodgkin lymphoma, unspecified, unspecified site; E11.649 Type 2 diabetes mellitus with hypoglycemia without coma; I25.10 Atherosclerotic heart disease of native coronary artery without angina pectoris; I10 Essential (primary) hypertension; R01.1 Cardiac murmur, unspecified; E11.40 Type 2 diabetes mellitus with diabetic neuropathy, unspecified; M06.9 Rheumatoid arthritis, unspecified; K59.09 Other constipation; R29.704 NIHSS score 4; Z87.891 Personal history of nicotine dependence; Z79.4 Long term (current) use of insulin; Z92.21 Personal history of antineoplastic chemotherapy ==

== ENCOUNTER → 2019-01-06 | Outpatient (CLI) | payer MEDICARE ==
[~2019-01-06] MED LIST changes: +ATOR20TA49 PO; +HOLD METFORMIN - RECEIVED CONTRAST 20 ML VIAL IV SCH; +IOHEXOL 350 MG/ML 100 ML (OMNIPAQUE 350) VIAL IV ONE; +NS 100 ML (IVPB) BAG IV ONE; +SULF1TAB35 PO
[2019-01-06 10:52] LABS: ALBUMIN 3.7 GM/DL (3.2-4.5); CALCIUM 9.5 MG/DL (8.5-10.1); CREATININE SERUM 1.24 MG/DL (0.60-1.30); TOTAL PROTEIN 6.6 GM/DL (6.4-8.2)
--- NOTE | 2019-01-06 19:43 | Diagnostic Imaging Report ---
PROCEDURE: CT chest, abdomen and pelvis with contrast. TECHNIQUE: Multiple contiguous axial images were obtained through the chest, abdomen, and pelvis after the administration of intravenous contrast. Auto Exposure Controls were utilized during the CT exam to meet ALARA standards for radiation dose reduction. DATE: January 06, 2019. COMPARISON: Chest radiograph, August 17, 2018. CT chest, abdomen and pelvis, July 27, 2016. INDICATION: 73-year-old male, history of lymphoma and Waldenstrom's macroglobulinemia. FINDINGS: There is a 4 mm calcified right upper lobe granuloma. There are calcified right perihilar lymph nodes also likely reflecting sequela of prior granulomatous disease. There is no identified noncalcified pulmonary nodule. There is no lung mass. There is no focal airspace consolidation. There is no pneumothorax. There is no pleural effusion. The central airways are patent. There is no identified pulmonary embolus. The main pulmonary artery is normal in caliber. The heart is not enlarged. There is no pericardial effusion. There are coronary artery calcifications and additional areas of atherosclerotic disease. There is a right peritracheal lymph node on axial image 20, measuring 10 mm in short axis, which is unchanged since July 2016. There are additional subcentimeter short axis paratracheal lymph nodes which are also unchanged. There is no new or clearly enlarging mediastinal, hilar or axillary lymph node. The liver is normal in size and contour. There is no identified liver lesion. The gallbladder is unremarkable. There is no intrahepatic or extrahepatic bile duct dilation. The main pancreatic duct is not abnormally dilated. Unremarkable appearance of the pancreatic parenchyma. The spleen is not enlarged. The adrenal glands are unremarkable. Unremarkable appearance of the renal parenchyma. The urinary collecting systems are not distended. There is no identified renal or ureteral stone. There are pelvic calcifications consistent with phleboliths. The urinary bladder is unremarkable. There is a penile pump device noted. The intestinal tract is not distended. There is no evidence of acute appendicitis. There is no free intraperitoneal air. There is no drainable fluid collection. There is no free pelvic fluid. There is surgical material in the left inguinal region which could relate to prior hernia repair. There is no identified current inguinal hernia. There is a fat-containing left posterior diaphragmatic hernia. There are atherosclerotic calcifications. There is no identified abnormally enlarged lymph node in the abdomen or pelvis which meets CT size criteria for adenopathy. There is severe glenohumeral joint space loss, bilaterally. There are chronic appearing deformities of the left posterior rib on axial image 42. This is the left posterior 10th rib. There is no identified acute bony abnormality. There are concavities of thoracic spine vertebral bodies with unchanged appearance since July 27, 2016 which may relate to prior compression deformities IMPRESSION: CT abdomen and pelvis: 1. No currently abnormally enlarged lymph node meeting CT size criteria for adenopathy. 2. No other lesion suggesting active malignancy. 3. Fat-containing left posterior diaphragmatic hernia. 4. Sequela of prior granulomatous disease. 5. Additional incidental findings as above. Dictated by: Dictated on workstation # [id number]
== END ==
LOC: RAD 10:12
PROVIDERS: ATTEND Internal Medicine Hematology & Oncology
DX: C85.86 Other specified types of non-Hodgkin lymphoma, intrapelvic lymph nodes (principal); C88.0 Waldenstrom macroglobulinemia; K44.9 Diaphragmatic hernia without obstruction or gangrene; I70.90 Unspecified atherosclerosis; M25.811 Other specified joint disorders, right shoulder; M25.812 Other specified joint disorders, left shoulder; Z98.890 Other specified postprocedural states
CPT/HCPCS: 36415; 71260; 74177; 80053

== ENCOUNTER 2019-04-02 08:24 | Observation (INO) | payer MEDICARE ==
[~2019-04-02] VITALS: Ht 177.8 cm; Wt 83.1 kg
[~2019-04-02 08:24] MED LIST changes: -HOLD METFORMIN - RECEIVED CONTRAST 20 ML VIAL IV SCH; -IOHEXOL 350 MG/ML 100 ML (OMNIPAQUE 350) VIAL IV ONE; -NS 100 ML (IVPB) BAG IV ONE
--- NOTE | 2019-04-02 08:40 | NUR ---
EMS FLUIDS IN
[2019-04-02] MEDS ORDERED: inSUlin (REGULAR) HUMAN 1 UNIT/0.01 ML (CHARGE PER UNIT) SC ONE ×2 (08:45→10:00)
[2019-04-02] MEDS ORDERED: fentaNYL INJECTION 100 MCG/2 ML AMP IVP ONE (08:45)
[2019-04-02 08:52] LABS: BASOPHILS % (AUTO) 0 % (0-10); EOSINOPHILS # (AUTO) 0.1 10^3/uL (0.0-0.3); EOSINOPHILS % (AUTO) 1 % (0-10); HEMATOCRIT 47 % (40-54); HEMOGLOBIN 15.8 G/DL (13.3-17.7); LYMPHOCYTES # (AUTO) 1.7 X 10^3 (1.0-4.0); LYMPHOCYTES % (AUTO) 15 % (12-44); MEAN CORPUSCULAR HEMOGLOBIN 32 PG (25-34); MEAN CORPUSCULAR HGB CONC 34 G/DL (32-36); MEAN CORPUSCULAR VOLUME 96 FL (80-99); MEAN PLATELET VOLUME 11.4 FL (7.4-10.4); MONOCYTES # (AUTO) 0.9 X 10^3 (0.0-1.0); MONOCYTES % (AUTO) 8 % (0-12); NEUTROPHILS # (AUTO) 8.6 X 10^3 (1.8-7.8); NEUTROPHILS % (AUTO) 76 % (42-75); PLATELET COUNT 218 10^3/uL (130-400); RED CELL DISTRIBUTION WIDTH 13.7 % (10.0-14.5); WHITE BLOOD COUNT 11.3 10^3/uL (4.3-11.0)
--- NOTE | 2019-04-02 08:54 | ED Chest Pain ---
General Stated Complaint: HIGH BLOOD SUGAR / CHEST PAIN Source: patient, EMS Exam Limitations: no limitations History of Present Illness Date Seen by Provider: Apr 02, 2019 Time Seen by Provider: 08:22 Initial Comments Patient presents to ER by EMS from home with chief complaint that his blood sugar was over 500 today. He is a type II diabetic typically on an insulin pump. The past month or so he's had a malfunction with this pump is been trying to get a new one but his primary care provider has been unavailable for unknown reasons. He's been using 15 units of insulin 3 times a day and having poor control for the past week. He had a fall on , 4 days ago landing against his right ribs and knocking over a brick pillar. Since then his been having pain in his right ribs on deep inspiration or direct palpation. He says he feels movement in his ribs. His been coughing up some clear phlegm. He's had no fevers or chills. He does not feel short of breath. This morning he started to feel some pressure in his left upper chest radiating to his shoulder and this along with his high blood sugar concerned him so he called EMS. EMS said by the time they got there he was pain-free and it only lasted about 30 minutes. They gave him aspirin and started an IV and a liter fluids. Blood sugar was 498 for EMS. When he fell he also hurt his right thumb and bilateral knees but he said he has no problems standing on them from leaving his right thumb. 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 Allergies and Home Medications Allergies Coded Allergies: acetaminophen (Verified Allergy, Intermediate, RASH, 07/14/17) hydrocodone (Verified Allergy, Intermediate, RASH, 07/14/17) oxycodone (Verified Allergy, Intermediate, RASH, 07/14/17) formaldehyde (Verified Allergy, Unknown, 12/20/07) Home Medications Aspirin 81 Mg Tablet., 81 MG PO DAILY, (Reported) Atorvastatin Calcium 20 Mg Tablet, 20 MG PO DAILY Prescribed by: GAVIOTA HASSAN on 08/18/18 0915 Hydrochlorothiazide 25 Mg Tablet, 25 MG PO DAILY, (Reported) Insulin Aspart 100 Unit/1 Ml Susp, PER INSULIN PUMP, (Reported) Lenalidomide 10 Mg Capsule, 10 MG PO UD, (Reported) DAILY AT BEDTIME X 21 DAYS THEN OFF 7 DAYS THEN REPEAT Metoprolol Succinate 25 Mg Tab.er.24h, 25 MG PO DAILY, (Reported) Prednisone 5 Mg Tablet, 5 MG PO DAILY, (Reported) Sacubitril/Valsartan 1 Each Tablet, 1 TAB PO BID, (Reported) Patient Home Medication List Home Medication List Reviewed: Yes Review of Systems Review of Systems Constitutional: No chills, No diaphoresis EENTM: No Blurred Vision, No Double Vision Respiratory: Cough; Denies Orthopnea, Denies Shortness of Air Cardiovascular: See HPI, Chest Pain; Denies Edema, Denies Irregular Heart Rate Gastrointestinal: Denies Abdomen Distended, Denies Abdominal Pain, Denies Constipated, Denies Diarrhea Genitourinary: Denies Burning, Denies Discharge Musculoskeletal: see HPI, back pain (right lateral flank) Skin: No dryness, No pruritus, No rash All Other Systems Reviewed Negative Unless Noted: Yes Past Qvwarxd-Tdlpbm-Mbnbka Hx Patient Social History Alcohol Use: Regular Use Alcohol Beverage of Choice: Whiskey Recreational Drug Use: No Smoking Status: Former Smoker Type Used: Cigarettes Former Smoker, Quit: Jul 28, 1990 2nd Hand Smoke Exposure: No Recent Foreign Travel: No Contact w/Someone Who Travel: No Recent Hopitalizations: No Immunizations Up To Date Tetanus Booster (TDap): Unknown PED Vaccines UTD: Yes Date of Pneumonia Vaccine: Aug 02, 2011 Date of Influenza Vaccine: Feb 03, 2014 Seasonal Allergies Seasonal Allergies: No Past Medical History Surgeries: Yes Abdominal, Bowel Surgery, Cardiac, Orthopedic, Penile Implant, Renal, Transurethral Resection, Vascular Surgery Respiratory: No Cardiac: Yes (CARDIAC CATHS--MILD TO MODERATE DISEASE, NO INTERVENTION; ) Coronary Artery Disease, Heart Murmur, Hypertension, Valvular Heart Disease Neurological: Yes Neuropathy Reproductive Disorders: No Sexually Transmitted Disease: No HIV/AIDS: No Genitourinary: Yes (TURP, CYSTOSCOPIES; URETERAL OBSTRUCTION DUE TO LYMPHOMA) Benign Prostatic Hyperpl, Prostate Problems, Bladder Infection Gastrointestinal: Yes Abdominal Hernia, Obstructive Bowel, Chronic Constipation, Gall Bladder Disease Musculoskeletal: Yes Rheumatoid Arthritis Endocrine: Yes Diabetes, Insulin dep HEENT: No Cancer: Yes (NON HODGKIN'S LYMPHOMA DX 2014--CURRENTLY IN REMISSION) Lymphoma Did You Recieve Any Treatments: Yes What Type of Treatment Did You: Chemotherapy, Other Psychosocial: No Integumentary: No Blood Disorders: No Adverse Reaction/Blood Tranf: No Family Medical History Congestive heart failure 19 MOTHER Family history: Diabetes mellitus 19 MOTHER No Family History of: Abdominal aortic aneurysm Alcoholism Cancer Dementia Family history: Allergy Family history: Alzheimer's disease Family history: Arthritis Family history: Asthma Family history: Breast disease Family history: Cardiovascular disease Family history: Gastrointestinal disease Family history: Thyroid disorder Myocardial infarction Psychotic disorder Seizure disorder Stroke Physical Exam Vital Signs Vital Signs - First Documented 04/02/19 08:26 Temp 36.7 Pulse 110 Resp 18 B/P (MAP) 128/94 (105) Pulse Ox 98 O2 Delivery Room Air Capillary Refill : Height, Weight, BMI Height: 5'10.00" Weight: 187lbs. 2.0oz. [id number]; 25.8 BMI Method:Estimated General Appearance: WD/WN, Anxious, Mild Distress HEENT: PERRL/EOMI, Pharynx Normal, Moist Mucous Membranes Neck: Full Range of Motion, Normal Inspection Respiratory: No Chest Non Tender (right midaxillary and posterior ribs inferiorly are tender to palpation); Lungs Clear, Normal Breath Sounds, No Acces vincent Muscle Use, No Respiratory Distress Cardiovascular: Regular Rate, Rhythm, No Edema, Normal Peripheral Pulses Gastrointestinal: Normal Bowel Sounds, No Organomegaly, Non Tender, Soft Extremity: Normal Capillary Refill, Normal Range of Motion, No Pedal Edema, Other (ecchymoses and tenderness to palpation over bilateral knees and right thumb) Neurologic/Psychiatric: Alert, Oriented x3, No Motor/Sensory Deficits, Normal Mood/Affect Skin: Normal Color, Warm/Dry, Other (healing abrasions on bilateral knees and right thumb) Procedures/Interventions Suture Size: 4-0, 5-0 Progress/Results/Core Measures Results/Orders Lab Results Laboratory Tests Test 04/02/19 08:26 04/02/19 09:31 Range/Units White Blood Count 11.3 H 4.3-11.0 10^3/uL Red Blood Count 4.90 4.35-5.85 10^6/uL Hemoglobin 15.8 13.3-17.7 G/DL Hematocrit 47 40-54 % Mean Corpuscular Volume 96 80-99 FL Mean Corpuscular Hemoglobin 32 25-34 PG Mean Corpuscular Hemoglobin Concent 34 32-36 G/DL Red Cell Distribution Width 13.7 10.0-14.5 % Platelet Count 218 130-400 10^3/uL Mean Platelet Volume 11.4 H 7.4-10.4 FL Neutrophils (%) (Auto) 76 H 42-75 % Lymphocytes (%) (Auto) 15 12-44 % Monocytes (%) (Auto) 8 0-12 % Eosinophils (%) (Auto) 1 0-10 % Basophils (%) (Auto) 0 0-10 % Neutrophils # (Auto) 8.6 H 1.8-7.8 X 10^3 Lymphocytes # (Auto) 1.7 1.0-4.0 X 10^3 Monocytes # (Auto) 0.9 0.0-1.0 X 10^3 Eosinophils # (Auto) 0.1 0.0-0.3 10^3/uL Basophils # (Auto) 0.0 0.0-0.1 10^3/uL Prothrombin Time 12.9 12.2-14.7 SEC INR Comment 0.9 0.8-1.4 Activated Partial Thromboplast Time 22 L 24-35 SEC Sodium Level 133 L 135-145 MMOL/L Potassium Level 4.6 3.6-5.0 MMOL/L Chloride Level 94 L 98-107 MMOL/L Carbon Dioxide Level 14 L 21-32 MMOL/L Anion Gap 25 H 5-14 MMOL/L Blood Urea Nitrogen 56 H 7-18 MG/DL Creatinine 2.30 H 0.60-1.30 MG/DL Estimat Glomerular Filtration Rate 28 BUN/Creatinine Ratio 24 Glucose Level 587 *H 70-105 MG/DL Calcium Level 9.4 8.5-10.1 MG/DL Corrected Calcium 9.6 8.5-10.1 MG/DL Magnesium Level 2.1 1.6-2.4 MG/DL Total Bilirubin 1.1 H 0.1-1.0 MG/DL Aspartate Amino Transf (AST/SGOT) 20 5-34 U/L Alanine Aminotransferase (ALT/SGPT) 17 0-55 U/L Alkaline Phosphatase 109 40-136 U/L Myoglobin 117.0 H 10.0-92.0 NG/ML Troponin I < 0.028 <0.028 NG/ML B-Type Natriuretic Peptide 107.6 H <100.0 PG/ML Total Protein 6.8 6.4-8.2 GM/DL Albumin 3.8 3.2-4.5 GM/DL Glucometer 419 *H 70-110 MG/DL My Orders Orders - EZEQUIEL WHITESIDE Ed Iv/Invasive Line Start (04/02/19 08:43) Cbc With Automated Diff (04/02/19 08:43) Magnesium (04/02/19 08:43) Ekg Tracing (04/02/19 08:43) Comprehensive Metabolic Panel (04/02/19 08:43) Myoglobin Serum (04/02/19 08:43) Protime With Inr (04/02/19 08:43) Partial Thromboplastin Time (04/02/19 08:43) O2 (04/02/19 08:43) Monitor-Rhythm Ecg Trace Only (04/02/19 08:43) Lipid Panel (04/03/19 06:00) Ed Iv/Invasive Line Start (04/02/19 08:43) BNP (04/02/19 08:43) Troponin I (04/02/19 08:43) Fentanyl Injection (Sublimaze Injection (04/02/19 08:45) Insulin (Regular) Human (Humulin R (Per (04/02/19 08:45) Ct Abdomen/Pelvis Wo (04/02/19 09:14) Chest Pa/Lat (2 View) (04/02/19 09:39) Accucheck Stat ONCE (04/02/19 09:39) Insulin (Regular) Human (Humulin R (Per (04/02/19 10:00) Medications Given in ED Current Medications Medications Dose Ordered Sig/Lesly Route Start Time Stop Time Status Last Admin Dose Admin Fentanyl Citrate 25 mcg ONCE ONCE IVP 04/02/19 08:45 04/02/19 08:47 DC 04/02/19 08:53 25 MCG Insulin Human Regular 10 unit ONCE ONCE SC 04/02/19 10:00 04/02/19 10:01 DC 04/02/19 10:03 10 UNIT Insulin Human Regular 20 unit ONCE ONCE SC 04/02/19 08:45 04/02/19 08:47 DC 04/02/19 08:56 20 UNIT Vital Signs/I&O 04/02/19 04/02/19 08:26 10:06 Temp 36.7 Pulse 110 101 Resp 18 18 B/P (MAP) 128/94 (105) 112/77 (89) Pulse Ox 98 94 O2 Delivery Room Air Room Air Progress Progress Note #1: Time: 08:59 Progress Note For his hyperglycemia we'll give 20 units of regular insulin subcutaneous and recheck a blood sugar in about half an hour. We'll look for underlying causes such as infection by getting a 2 view chest x-ray urine and labs. For his chest pain and he's already received aspirin and is not having any active chest pain now. We'll obtain cardiac workup. For his chest wall pain I would like to give him NSAIDs but until his cardiac workup was done we'll just use fentanyl and obtain a CT of the abdomen/pelvis were is having pain as right lower flank. With his recent fall and subsequent immobility and no use of blood thinners with the concerned about atelectasis leading to a pneumonia, less likely a pulmonary embolism. Wells score 3.0 points; Moderate risk group: 16.2% chance of PE in an ED population. CTA to evaluate ribs, PNA and PE. Echocardiogram by Dr. Rosario August 2018: EF of 55-65% with grade 1 diastolic dysfunction. Mild to moderate regurgitation of the mitral and tricuspid valve. Cardiac catheterization July [address] Quiroz: Patent stent in the mid LAD with mild to moderate coronary artery disease, nonobstructive. +2-3 mitral regurgitation. Prominent left ventricle with mild to moderate diffuse left ventricular hypokinesia estimated EF of 45%. History of recovered congestive heart failure, secondary to severe mitral regurgitation and hyperlipidemia. Progress Note #2: Time: 10:30 Progress Note Blood sugar was 419 May another 10 units of regular insulin and we'll recheck it in about half an hour. Imaging unremarkable for trauma related injury although we had to use noncontrast CT because he could not tolerate contrast given his kidney dysfunction. Heart score 6 points. Initial ECG Impression Date: Apr 02, 2019 Initial ECG Impression Time: 08:31 Initial ECG Rate: 109 Initial ECG Rhythm: Normal Sinus Initial ECG Intervals: QT (485) Initial ECG Impression: Normal, Nonspecific Changes Initial ECG Comparisson: Changed Comment 1/2-[address] depression in the lateral leads V4 through V6. Sinus tachycardia. Diagnostic Imaging Diagonstic Imaging: Xray Plain Films/CT/US/NM/MRI: chest (2v) Comments [facility] [place], [place] NAME: NILO ROGERS [facility] REC#: [id number] PT STATUS: REG ER : 1945 PHYSICIAN: EZEQUIEL WHITESIDE MD ADMIT DATE: 04/02/19/ER Draft Date of Exam:04/02/19 CHEST PA/LAT (2 VIEW) Indication: Chest pain. Time of exam 9:49 AM Correlation is made with prior chest from 08/17/2018. Right chest wall port has tip at the SVC right atrial junction. The lungs appear fairly clear. No significant infiltrate or effusion is seen. There is no pneumothorax. IMPRESSION: No acute cardiopulmonary process is detected. Dictated on workstation # [id number] Dict: 04/02/19 0955 Trans: 04/02/19 1005 [facility] [id number] Interpreted by: MATTHIAS SHAW MD Electronically signed by: Reviewed: Reviewed by Ny Diagonstic Imaging: CT (with IV contrast) Plain Films/CT/US/NM/MRI: abdomen, pelvis Comments [facility] [place], [place] NAME: NILO ROGERS [facility] REC#: [id number] PT STATUS: REG ER : 1945 PHYSICIAN: EZEQUIEL WHITESIDE MD ADMIT DATE: 04/02/19/ER Draft Date of Exam:04/02/19 CT ABDOMEN/PELVIS WO PROCEDURE: CT abdomen and pelvis without contrast. TECHNIQUE: Multiple contiguous axial images were obtained through the abdomen and pelvis without the use of intravenous contrast. Auto Exposure Controls were utilized during the CT exam to meet ALARA standards for radiation dose reduction. INDICATION: Fall and low back pain as well as chest pain. Comparison is made with prior CT from 01/06/2019. Lung bases demonstrate some linear parenchymal opacities suggestive of scarring or atelectasis. Fat-containing diaphragmatic hernia posterior medial on the left is stable. The liver and gallbladder are unremarkable. No biliary duct dilatation is seen. The pancreas and spleen are unremarkable. No adrenal mass is detected. No definite renal calculi are detected. There is no hydronephrosis. Aorta is calcified but not aneurysmal. Bowel loops appear to be normal caliber. No obstruction is identified. No free fluid or fluid collection is identified. There is a penile prosthesis. Reservoirs in the right pelvis. No acute inflammatory process is detected. Bony structures appear nonacute. IMPRESSION: No acute feature in the abdomen or pelvis is identified. Dictated on workstation # [id number] Dict: 04/02/19 1004 Trans: 04/02/19 1018 [facility] [id number] Interpreted by: MATTHIAS SHAW MD Electronically signed by: Reviewed: Reviewed by Me Departure Communication (Admissions) Time/Spoke to Admitting Phy: 10:37 Dr. Marley agrees to observe the patient. Repeat troponins and insulin. Time/Spoke to Consulting Phy: 10:31 dr Rosario: He agrees to consult on the patient and trending troponins. Impression Primary Impression: Hyperglycemia due to type 2 diabetes mellitus Additional Impressions: Chest pain Traumatic ecchymosis of rib Disposition: ADMITTED INPATIENT Condition: Stable Admissions Decision to Admit Reason: Admit from ER (General) Decision to Admit/Date: Apr 02, 2019 Time/Decision to Admit Time: 10:30 Departure-Patient Inst. Referrals: KARLA WESTBROOK DO (PCP/Family) Primary Care Physician EZEQUIEL WHITESIDE Apr 02, 2019 08:54
[2019-04-02 09:00] LABS: INR 0.9 (0.8-1.4); PROTHROMBIN TIME PATIENT 12.9 SEC (12.2-14.7)
[2019-04-02 09:10] LABS: ALBUMIN 3.8 GM/DL (3.2-4.5); BILIRUBIN,TOTAL 1.1 MG/DL (0.1-1.0); CALCIUM 9.4 MG/DL (8.5-10.1); CREATININE SERUM 2.3 MG/DL (0.60-1.30); MAGNESIUM 2.1 MG/DL (1.6-2.4); POTASSIUM 4.6 MMOL/L (3.6-5.0); TOTAL PROTEIN 6.8 GM/DL (6.4-8.2)
--- NOTE | 2019-04-02 10:05 | Diagnostic Imaging Report ---
Indication: Chest pain. Time of exam 9:49 AM Correlation is made with prior chest from 08/17/2018. Right chest wall port has tip at the SVC right atrial junction. The lungs appear fairly clear. No significant infiltrate or effusion is seen. There is no pneumothorax. IMPRESSION: No acute cardiopulmonary process is detected. Dictated by: Dictated on workstation # [id number]
[2019-04-02 10:06] VITALS: BP 112/77
--- NOTE | 2019-04-02 10:19 | Diagnostic Imaging Report ---
PROCEDURE: CT abdomen and pelvis without contrast. TECHNIQUE: Multiple contiguous axial images were obtained through the abdomen and pelvis without the use of intravenous contrast. Auto Exposure Controls were utilized during the CT exam to meet ALARA standards for radiation dose reduction. INDICATION: Fall and low back pain as well as chest pain. Comparison is made with prior CT from 01/06/2019. Lung bases demonstrate some linear parenchymal opacities suggestive of scarring or atelectasis. Fat-containing diaphragmatic hernia posterior medial on the left is stable. The liver and gallbladder are unremarkable. No biliary duct dilatation is seen. The pancreas and spleen are unremarkable. No adrenal mass is detected. No definite renal calculi are detected. There is no hydronephrosis. Aorta is calcified but not aneurysmal. Bowel loops appear to be normal caliber. No obstruction is identified. No free fluid or fluid collection is identified. There is a penile prosthesis. Reservoirs in the right pelvis. No acute inflammatory process is detected. Bony structures appear nonacute. IMPRESSION: No acute feature in the abdomen or pelvis is identified. Dictated by: Dictated on workstation # [id number]
[2019-04-02] MEDS ORDERED: NS IV 1000 ML 1,000 ML IV SCH (10:40)
[2019-04-02 12:43] VITALS: BP 116/80
[2019-04-02] MEDS ORDERED: ACETAMINOPHEN 500 MG TAB (TYLENOL) PO PRN (12:45)
[2019-04-02] MEDS ORDERED: fentaNYL INJECTION 100 MCG/2 ML AMP IV PRN (12:45)
[2019-04-02] MEDS ORDERED: ONDANSETRON 4 MG/2 ML (SDV) Z0FRAN IV PRN (12:45)
[2019-04-02 12:50] VITALS: BP 116/80
[2019-04-02] MEDS ORDERED: NITROGLYCERIN 0.4 MG SL TABS BTL 25'S SL PRN (13:00)
--- NOTE | 2019-04-02 13:11 | History & Physical-Hospitalist ---
History of Present Illness HPI/Chief Complaint Luis Alberto Wiseman is a 73-year-old male with past medical history of hypertension, diabetes, BPH, non-Hodgkin's lymphoma reportedly in remission, coronary artery disease, peripheral artery disease, who presented with chest pain. He reports that he is feeling chest pressure today. He says that it lasted about 30 minutes and then resolved. He says that he has also had elevated blood sugars recently. He has an insulin pump and it has not been functioning properly. He has tried to make an appointment with his executive chairman but has been unsuccessful. He has been using his NovoLog 15 units 3 times a day and he is has still had blood sugars in the 400s. He also had a recent fall and has a rib pain on the right side. The pressure that he experienced today was not the same as the pain he has been having from his fall. He denies any fevers or chills. He denies any nausea or vomiting. He denies any abdominal pain. He denies any shortness of breath. He has been having a cough recently. Source: patient Exam Limitations: no limitations Date Seen 04/02/19 Time Seen by a Provider: 12:30 Attending Physician Carmela Bowen MD PCP Davis Caldera DO Referring Physician Date of Admission Apr 02, 2019 at 10:35 Home Medications & Allergies Home Medications Reviewed patient Home Medication Reconciliation performed by pharmacy medication reconciliations collision repair technician and/or nursing. Patients Allergies have been reviewed. Allergies Allergies Coded Allergies hydrocodone (Verified Allergy, Intermediate, RASH, 07/14/17) oxycodone (Verified Allergy, Intermediate, RASH, 07/14/17) formaldehyde (Verified Allergy, Unknown, 12/20/07) Past Phxbwwg-Pjnvsi-Ihlhgd Hx Past Med/Social Hx: Reviewed Nursing Past Med/Soc Hx Patient Social History Alcohol Use: Regular Use Alcohol Beverage of Choice: Whiskey Recreational Drug Use: No Smoking Status: Former Smoker Former Smoker, Quit: Jul 28, 1990 Type Used: Cigarettes 2nd Hand Smoke Exposure: No Recent Foreign Travel: No Contact w/other who traveled: No Recent Hopitalizations: No Recent Infectious Disease Expo: No Immunizations Up To Date Tetanus Booster (TDap): Unknown Pediatric: Yes Date of Pneumonia Vaccine: Aug 02, 2011 Date of Influenza Vaccine: Feb 08, 2019 Seasonal Allergies Seasonal Allergies: No Past Medical History Surgeries: Abdominal, Bowel Surgery, Cardiac, Orthopedic, Penile Implant, Renal, Transurethral Resection, Vascular Surgery Cardiac: Coronary Artery Disease, Heart Murmur, Hypertension, Valvular Heart D isease Neurological: Neuropathy Reproductive: No Sexually Transmitted Disease: No HIV/AIDS: No Genitourinary: Benign Prostatic Hyperpl, Prostate Problems, Bladder Infection Gastrointestinal: Abdominal Hernia, Obstructive Bowel, Chronic Constipation, Gall Bladder Disease Musculoskeletal: Rheumatoid Arthritis Endocrine: Diabetes, Insulin dep Cancer: Lymphoma Did You Recieve Any Treatments: Yes What Type of Treatment Did You: Chemotherapy, Other History of Blood Disorders: No Adverse Reaction to Blood Szymanski: No Family History Congestive heart failure 19 MOTHER Family history: Diabetes mellitus 19 MOTHER No Family History of: Abdominal aortic aneurysm Alcoholism Cancer Dementia Family history: Allergy Family history: Alzheimer's disease Family history: Arthritis Family history: Asthma Family history: Breast disease Family history: Cardiovascular disease Family history: Gastrointestinal disease Family history: Thyroid disorder Myocardial infarction Psychotic disorder Seizure disorder Stroke Review of Systems Constitutional: no symptoms reported EENTM: no symptoms reported Respiratory: cough Cardiovascular: chest pain Gastrointestinal: no symptoms reported Genitourinary: no symptoms reported Musculoskeletal: back pain Skin: no symptoms reported Psychiatric/Neurological: No Symptoms Reported Physical Exam Physical Exam Vital Signs Vital Signs - First Documented 04/02/19 08:26 Temp 36.7 Pulse 110 Resp 18 B/P (MAP) 128/94 (105) Pulse Ox 98 O2 Delivery Room Air Capillary Refill : Less Than 3 Seconds Height, Weight, BMI Height: 5'10.00" Weight: 187lbs. 2.0oz. 84.482358wm; 26.28 BMI Method:Estimated General Appearance: No Apparent Distress, WD/WN HEENT: PERRL/EOMI, Pharynx Normal Neck: Normal Inspection, Supple Respiratory: No Respiratory Distress, Rhonci, Other (Chest tenderness on the right side) Cardiovascular: No Edema, No Murmur, Tachycardia (Regular rhythm) Gastrointestinal: Normal Bowel Sounds, Non Tender, Soft Extremity: Normal Inspection, Non Tender Neurologic/Psychiatric: Alert, Oriented x3, No Motor/Sensory Deficits, Normal Mood/Affect Skin: Normal Color, Warm/Dry Lymphatic: No Adenopathy Results Results/Procedures Labs Laboratory Tests 04/02/19 08:26 Patient resulted labs reviewed. Imaging: Reviewed Imaging Films, Reviewed Imaging Report Assessment/Plan Admission Diagnosis Chest pain Admission Status: Observation Assessment and Plan Chest pain Coronary artery disease Ground-level fall Rib pain Troponin normal EKG with ST depressions in the anterolateral leads Cardiology consulted, appreciate assistance Chest x-ray normal Obtain a dedicated rib x-ray Pain regimen ordered Type II diabetes mellitus with hyperglycemia Blood sugars 587 on arrival Give Levemir 10 units now Begin Levemir 15 units twice daily NovoLog 15 units three times a day with meals NovoLog sliding scale Acute kidney injury superimposed on chronic kidney disease Creatinine 2.3 on admission, up from baseline approximately 1.2 IV fluids ordered DVT prophylaxis: Heparin Diagnosis/Problems Diagnosis/Problems (1) Chest pain Status: Acute (2) T2DM (type 2 diabetes mellitus) Status: Chronic Qualifiers: Diabetes mellitus intermission coordinator insulin use: with snf use Diabetes mellitus complication status: with hyperglycemia Qualified Codes: E11.65 - Type 2 diabetes mellitus with hyperglycemia; Z79.4 - intermission coordinator (current) use of insulin (3) Fall from ground level Status: Acute (4) Rib pain on right side Status: Acute (5) Acute kidney injury superimposed on chronic kidney disease Status: Acute Clinical Quality Measures AMI/AHF: ASA po Prior to arrival: Yes (324 BY EMS) DVT/VTE Risk/Contraindication: Risk Factor Score Per Nursin RFS Level Per Nursing on Admit: 2=Moderate CARMELA BOWEN MD Apr 02, 2019 13:11
[2019-04-02] MEDS ORDERED: ONDANSETRON 4 MG (ZOFRAN) ORAL DISSOLVE TAB PO PRN (13:15)
[2019-04-02] MEDS ORDERED: MELATONIN 3 MG TABLET PO PRN (13:15)
[2019-04-02] MEDS ORDERED: POLYETHYLENE GLYCOL 17 GM (MIRALAX) PACK PO PRN (13:15)
[2019-04-02] MEDS ORDERED: ACETAMINOPHEN 325 MG TABLET PO PRN (13:15)
[2019-04-02] MEDS ORDERED: BISACODYL 10 MG SUPP (DULCOLAX) PR PRN (13:15)
[2019-04-02] MEDS: NS IV 1000 ML 1,000 ML IV SCH ×2 (13:18→20:09)
[2019-04-02] MEDS: ASPIRIN E.C. 81 MG (ECOTRIN) TAB PO SCH (13:19)
[2019-04-02] MEDS ORDERED: diphenhydrAMINE 25 MG TAB (BENADRYL) PO PRN (14:15)
--- NOTE | 2019-04-02 14:51 | Consultation-Cardiology ---
HPI-Cardiology Cardiology Consultation: Date of Consultation 04/02/19 Date of Admission Attending Physician Carmela Marley MD Admitting Physician Davis Caldera DO Consulting Physician Isak ROSARIO MD HPI: Time Seen by a Provider: 14:51 Chief Complaint: Chest pressure This is a 73-year-old patient of Dr. Back. He had coronary angiography done 6 months ago with no significant disease. He presents with significantly increased blood sugar level. He has type II diabetes and is on an insulin pump. Insulin pump was not working for the last one month. He also had a fall 4 days ago and hurt his chest. He does have chest pain on inspiration as well. His been coughing up with productive sputum. No fevers. Also has chest pressure. Review of Systems-Cardiology Review of Systems Constitutional: As described under HPI; No As described under HPI, No no symptoms reported, No chills, No fever, No lightheadedness Eyes: No As described under HPI, No no symptoms reported, No blindness, No blurred vision, No contact lenses, No drainage, No decreased acuity, No foreign body sensation, No pain, No vision change Ears/Nose/Throat: No As described under HPI, No no symptoms reported, No chronic hearing loss, No ear discharge, No ear pain, No nasal drainage, No ulcerations Respiratory: No no symptoms reported; As described under HPI; No As described under HPI; cough; No orthopnea, No shortness of breath, No SOB with excertion Cardiovascular: No no symptoms reported; As described under HPI; No As described under HPI; chest pain; No edema, No irregular heart rate, No lightheadedness, No palpitations Gastrointestinal: No no symptoms reported, No As described under HPI, No abdomen distended, No abdominal pain, No blood streaked bowels, No constipation, No diarrhea, No nausea, No vomiting, No stool coloration changes Genitourinary: No As described under HPI, No burning, No dysuria, No discharge, No frequency, No flank pain, No hematuria, No urgency Skin: No rash, No skin related problems, No ulcerations Psychiatric/Neurological: No anxiety, No depression, No seizure, No focal weakness, No syncope Hematologic: No bleeding abnormalities All Other Systems Reviewed Negative Unless Noted: Yes EUW-Coeaje-Nmaktb Hx Patient Social History Alcohol Use: Regular Use Recreational Drug Use: No Smoking Status: Former Smoker Type Used: Cigarettes 2nd Hand Smoke Exposure: No Recent Foreign Travel: No Recent Infectious Disease Expo: No Hospitalization with Isolation: Denies Immunizations Up To Date Tetanus Booster (TDap): Unknown Date of Pneumonia Vaccine: Aug 02, 2011 Date of Influenza Vaccine: Feb 08, 2019 Past Medical History PMH As described under Assessment. Family Medical History Family History: Congestive heart failure 19 MOTHER Family history: Diabetes mellitus 19 MOTHER No Family History of: Abdominal aortic aneurysm Alcoholism Cancer Dementia Family history: Allergy Family history: Alzheimer's disease Family history: Arthritis Family history: Asthma Family history: Breast disease Family history: Cardiovascular disease Family history: Gastrointestinal disease Family history: Thyroid disorder Myocardial infarction Psychotic disorder Seizure disorder Stroke Allergies and Home Medications Allergies Coded Allergies: hydrocodone (Verified Allergy, Intermediate, RASH, 07/14/17) oxycodone (Verified Allergy, Intermediate, RASH, 07/14/17) formaldehyde (Verified Allergy, Unknown, 12/20/07) Home Medications Aspirin 81 Mg Tablet.dr, 81 MG PO DAILY, (Reported) Hydrochlorothiazide 25 Mg Tablet, 25 MG PO DAILY, (Reported) Insulin Aspart (Niacinamide) 100 Unit/1 Ml Vial, 15 UNITS SC ACHS, (Reported) Magnesium Oxide 400 Mg Tablet, 400 MG PO DAILY, (Reported) Metoprolol Succinate 25 Mg Tab.er.24h, 25 MG PO DAILY, (Reported) Prednisone 5 Mg Tablet, 5 MG PO DAILY, (Reported) Sacubitril/Valsartan 1 Each Tablet, 1 TAB PO BID, (Reported) Patient Home Medication List Home Medication List Reviewed: Yes Physical Exam-Cardiology Physical Exam Vital Signs/I&O 04/03/19 04/03/19 04/03/19 04/03/19 07:00 08:00 08:00 09:00 Pulse 89 85 B/P (MAP) 126/81 (96) Pulse Ox 94 95 96 O2 Delivery Room Air Room Air Room Air 04/03/19 04/03/19 04/03/19 04/03/19 11:00 11:30 12:33 13:00 Pulse 94 112 104 B/P (MAP) 129/83 (98) 145/97 (113) Pulse Ox 94 95 97 O2 Delivery Room Air Room Air 04/03/19 04/03/19 04/03/19 16:00 16:00 16:00 Temp 36.4 Pulse 104 B/P (MAP) 152/107 (122) Pulse Ox 96 93 O2 Delivery Room Air Room Air 04/03/19 00:00 Intake Total 2550 ml Output Total 450 ml Balance 2100 ml Capillary Refill : Less Than 3 Seconds Constitutional: AAO x 3 HEENT: PERRL; No discharge; hearing is well preserved, oral hygience is good; No ulceration, No xanthelasmas are seen Neck: No carotid bruit; carotid pulses are 2 + bilaterally Respiratory: chest is bilaterally symmetric, lungs clear to auscultation Cardiovascular: regular rate-rhythm, S1 and S2 Gastrointestinal: soft, audible bowel sounds; No spleenomegaly Rectal: deferred Extremities: No clubbing, No cyanosis; no lower extremity edema bilateral; No significant edema Neurologic/Psychiatric: no motor/sensory deficits, alert, normal mood/affect, oriented x 3, power is 5/5 both on sides Skin: normal color, warm/dry; No rash, No ulcerations Data Review Labs Laboratory Tests 04/02/19 20:40: Glucometer 87 04/02/19 20:41: Troponin I < 0.028 04/03/19 02:50: White Blood Count 7.3, Red Blood Count 4.21L, Hemoglobin 13.7, Hematocrit 40, Mean Corpuscular Volume 95, Mean Corpuscular Hemoglobin 33, Mean Corpuscular Hemoglobin Concent 34, Red Cell Distribution Width 13.3, Platelet Count 194, Mean Platelet Volume 10.5H, Neutrophils (%) (Auto) 65, Lymphocytes (%) (Auto) 21, Monocytes (%) (Auto) 13H, Eosinophils (%) (Auto) 1, Basophils (%) (Auto) 0, Neutrophils # (Auto) 4.8, Lymphocytes # (Auto) 1.5, Monocytes # (Auto) 1.0, Eosinophils # (Auto) 0.1, Basophils # (Auto) 0.0, Sodium Level 142, Potassium Level 3.5L, Chloride Level 109H, Carbon Dioxide Level 18L, Anion Gap 15H, Blood Urea Nitrogen 42H, Creatinine 1.37H, Estimat Glomerular Filtration Rate 51, BUN/Creatinine Ratio 31, Glucose Level 59*L, Calcium Level 7.9L, Corrected Calcium 8.5, Total Bilirubin 0.7, Aspartate Amino Transf (AST/SGOT) 15, Alanine Aminotransferase (ALT/SGPT) 13, Alkaline Phosphatase 84, Total Protein 5.6L, Albumin 3.2, Triglycerides Level 107, Cholesterol Level 169, LDL Cholesterol Direct 125, VLDL Cholesterol 21, HDL Cholesterol 33L 04/03/19 04:51: Glucometer 103 04/03/19 07:30: Glucometer 145H 04/03/19 10:58: Glucometer 215H 04/03/19 15:08: Glucometer 316H ECG Impression ECG Initial ECG Rhythm: S.Tach, PVC A/P-Cardiology Assessment/Admission Diagnosis Chest pressure, Cough with productive sputum, Severe diabetes Plan Chest pressure, coronary angiography -6 months ago. However due to severe uncontrolled diabetes, I will recommend stress testing. Serial troponin. Cough with productive sputum, low threshold for treating pneumonia. Severe diabetes, deferred to the primary team. Thank you for your consultation. Please call me if you have any questions. Johana Rosario MD, FACP, FACC, FSCAI, FHRS, CCDS Interventional Cardiology Cardiac Electrophysiology Vascular Medicine and Endovascular Interventions Clinical Quality Measures AMI/AHF: ASA po Prior to arrival: Yes (324 BY EMS) DVT/VTE Risk/Contraindication: Risk Factor Score Per Nursin RFS Level Per Nursing on Admit: 2=Moderate Isak ROSARIO MD Apr 02, 2019 14:51
--- NOTE | 2019-04-02 15:39 | Diagnostic Imaging Report ---
INDICATION: Fall. Right rib pain. EXAMINATION: Multiple views of the right ribs were obtained. FINDINGS: There are mildly displaced fractures involving the right 7th, 8th, 9th and 10th ribs. The right lung is well-aerated. No pneumothorax or pleural effusion. Port-A-Cath on the right. IMPRESSION: Mild displaced fractures of the right 7th, 8th, 9th and 10th ribs on the right. Dictated by: Dictated on workstation # [id number]
[2019-04-02 16:00] VITALS: BP 125/67
[2019-04-02] MEDS: inSUlin ASPART (NovoLOG) 1 UNIT/0.01 ML (CHARGE PER UNIT) SC SCH ×3 (16:00→20:46)
[2019-04-02 20:00] VITALS: BP 133/94
[2019-04-02] MEDS: SENNOSIDES 8.6 MG (SENOKOT) TAB PO SCH (20:08)
[2019-04-02] MEDS: DOCUSATE SODIUM 100 MG (COLACE) CAP PO SCH (20:08)
[2019-04-03] VITALS (7 sets, daily range): BP systolic 122–152; BP diastolic 81–107
[2019-04-03] MEDS: NS IV 1000 ML 1,000 ML IV SCH ×2 (02:46→08:57)
[2019-04-03 03:06] LABS: BASOPHILS % (AUTO) 0 % (0-10); EOSINOPHILS # (AUTO) 0.1 10^3/uL (0.0-0.3); EOSINOPHILS % (AUTO) 1 % (0-10); HEMATOCRIT 40 % (40-54); HEMOGLOBIN 13.7 G/DL (13.3-17.7); LYMPHOCYTES # (AUTO) 1.5 X 10^3 (1.0-4.0); LYMPHOCYTES % (AUTO) 21 % (12-44); MEAN CORPUSCULAR HEMOGLOBIN 33 PG (25-34); MEAN CORPUSCULAR HGB CONC 34 G/DL (32-36); MEAN CORPUSCULAR VOLUME 95 FL (80-99); MEAN PLATELET VOLUME 10.5 FL (7.4-10.4); MONOCYTES % (AUTO) 13 % (0-12); NEUTROPHILS # (AUTO) 4.8 X 10^3 (1.8-7.8); NEUTROPHILS % (AUTO) 65 % (42-75); PLATELET COUNT 194 10^3/uL (130-400); RED CELL DISTRIBUTION WIDTH 13.3 % (10.0-14.5); WHITE BLOOD COUNT 7.3 10^3/uL (4.3-11.0)
[2019-04-03 03:25] LABS: ALBUMIN 3.2 GM/DL (3.2-4.5); BILIRUBIN,TOTAL 0.7 MG/DL (0.1-1.0); CALCIUM 7.9 MG/DL (8.5-10.1); CREATININE SERUM 1.37 MG/DL (0.60-1.30); POTASSIUM 3.5 MMOL/L (3.6-5.0); TOTAL PROTEIN 5.6 GM/DL (6.4-8.2)
[2019-04-03 03:26] LABS: CHOLESTEROL 169 MG/DL (< 200); HDL CHOLESTEROL 33 MG/DL (40-60); TRIGLYCERIDES 107 MG/DL (<150); VLDL CHOLESTEROL 21 MG/DL (5-40)
[2019-04-03] MEDS ORDERED: DEXTROSE 50% 50 ML (IMS) SYR ONE (03:38)
[2019-04-03] MEDS ORDERED: DEXTROSE 50% 50 ML (IMS) SYR IV ONE (03:45)
[2019-04-03] MEDS: inSUlin ASPART (NovoLOG) 1 UNIT/0.01 ML (CHARGE PER UNIT) SC SCH ×5 (06:15→21:31)
--- NOTE | 2019-04-03 07:31 | Diagnostic Imaging Report ---
INDICATION: Chest pain Upright portable AP view of the chest is obtained. Comparison is made to the study of one day earlier. There is mild cardiomegaly. Pulmonary vascularity is at the upper limits of normal. There is mild blunting of the left costophrenic sulcus unchanged from previous exam. There is no evidence of pneumothorax or consolidation. Right jugular central venous catheter reaches the lower superior vena cava. IMPRESSION: Blunting of the left costophrenic sulcus may represent mild pleural thickening. Pulmonary vascularity is at the upper limits of normal. Otherwise, no acute abnormality or adverse change is detected. Dictated by: Dictated on workstation # [id number]
--- NOTE | 2019-04-03 08:00 | NUR ---
THIS NURSE NOTIFIED DR COLON PT BLOOD SUGAR DROPPED TO 59 THIS MORNING. ORDER GIVEN TO HOLD MORNING LEVEMIR.
--- NOTE | 2019-04-03 08:50 | NUR ---
THIS NURSE NOTIFIED DR HERRERA ALL 3 TROPONIN HAVE BEEN NEGATIVE. PT DENIES CHEST PAIN. ORDER GIVEN FOR LEXISCAN STRESS TEST. NUCLEAR MED NOTIFIED.
[2019-04-03] MEDS: DOCUSATE SODIUM 100 MG (COLACE) CAP PO SCH ×2 (08:57→20:51)
[2019-04-03] MEDS: SENNOSIDES 8.6 MG (SENOKOT) TAB PO SCH ×2 (08:57→20:51)
[2019-04-03] MEDS: ASPIRIN E.C. 81 MG (ECOTRIN) TAB PO SCH (08:57)
[2019-04-03] MEDS ORDERED: REGADENOSON 0.4 MG/5 ML SYR (LEXISCAN) IV ONE ×2 (09:00→12:22)
[2019-04-03] MEDS ORDERED: guaiFENesin (MUCINEX) 600 MG TAB PO ONE (09:15)
--- NOTE | 2019-04-03 09:18 | Progress Note - Hospitalist ---
Subjective HPI/CC On Admission Date Seen by Provider: Apr 03, 2019 Time Seen by Provider: 09:14 Luis Alberto Wiseman is a 73-year-old male with past medical history of hypertension, diabetes, BPH, non-Hodgkin's lymphoma reportedly in remission, coronary artery disease, peripheral artery disease, who presented with chest pain. He reports that he is feeling chest pressure today. He says that it lasted about 30 minutes and then resolved. He says that he has also had elevated blood sugars recently. He has an insulin pump and it has not been functioning properly. 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 He has been using his NovoLog 15 units 3 times a day and he is has still had blood sugars in the 400s. He also had a recent fall and has a rib pain on the right side. The pressure that he experienced today was not the same as the pain he has been having from his fall. He denies any fevers or chills. He denies any nausea or vomiting. He denies any abdominal pain. He denies any shortness of breath. He has been having a cough recently. Subjective/Events-last exam Pt reports significant pain on right lower back and ribs. Refuses IS because of pain and sputum. Objective Exam Vital Signs Vital Signs Date Time Temp Pulse Resp B/P (MAP) Pulse Ox O2 Delivery O2 Flow Rate FiO2 04/03/19 07:00 89 04/03/19 04:00 122/81 (95) 93 Room Air 04/03/19 00:09 36.1 04/02/19 12:50 18 Capillary Refill : Less Than 3 Seconds General Appearance: No Apparent Distress, Other (appears uncomfortable) Respiratory: Lungs Clear, No Respiratory Distress Cardiovascular: Regular Rate, Rhythm, No Murmur Neurologic/Psychiatric: Alert, Oriented x3 Results/Procedures Lab Laboratory Tests 04/03/19 02:50 Patient resulted labs reviewed. Imaging: Reviewed Imaging Films, Reviewed Imaging Report Assessment/Plan Assessment and Plan Assess & Plan/Chief Complaint Chest pain Coronary artery disease CHF Ground-level fall Rib fracture- multiple, right Troponin normal, plan for stress test today Cardiology consulted, appreciate assistance Pain regimen - Encouraged IS, will add Mucinex and Mucomyst to help with sputum - echo ordered Type II diabetes mellitus with hyperglycemia Had multiple lows overnight - DC current regimen and start with Levemir 5U HS along with sliding scale - Trend Acute kidney injury superimposed on chronic kidney disease Hypokalemia Creatinine 2.3 on admission, now 1.37 - DC IVF - Replace K DVT prophylaxis: Heparin Diagnosis/Problems Diagnosis/Problems (1) Fall from ground level Status: Acute (2) Acute kidney injury superimposed on chronic kidney disease Status: Acute (3) T2DM (type 2 diabetes mellitus) Status: Chronic Qualifiers: Diabetes mellitus penitentiary insulin use: with meterman use Diabetes mellitus complication status: with hyperglycemia Qualified Codes: E11.65 - Type 2 diabetes mellitus with hyperglycemia; Z79.4 - halfway (current) use of insulin (4) Hyperglycemia due to type 2 diabetes mellitus Status: Acute (5) Chest pain Status: Acute (6) Lymphoma Status: Chronic (7) CHF (congestive heart failure) Clinical Quality Measures AMI/AHF: ASA po Prior to arrival: Yes (324 BY EMS) DVT/VTE Risk/Contraindication: Risk Factor Score Per Nursin RFS Level Per Nursing on Admit: 2=Moderate TARAN COLON MD Apr 03, 2019 09:18
--- NOTE | 2019-04-03 11:01 | NUR ---
Initial visit with the pt "Ovidio," his and son. Introduced self and offered supportive presence while engaging in rapport building.
[2019-04-03] MEDS ORDERED: MAGN400T39 PO (11:18)
[2019-04-03] MEDS ORDERED: INSU100V35 SC (11:18)
[2019-04-03] MEDS ORDERED: PRED5TAB PO (11:20)
--- NOTE | 2019-04-03 11:21 | NUR ---
SPOKE WITH THE PATIENT ABOUT HIS MEDICATIONS. HE HAD A DRUG LIST IN HIS WALLET, I COMPARED IT WITH THE EXT MED HX. HE STATES HE GETS HIS ENTRESTO THROUGH A VOUCHER PROGRAM THROUGH HIS OFFICE. HE STATES HE HAD BEEN USING THE FIASP IN HIS INSULIN PUMP HOWEVER HIS PUMP IS CURRENTLY BROKEN, HE HAS BEEN GIVING HIMSELF 15 UNITS ABOUT 4 TIMES DAILY. HE DOES IT WITH EACH MEAL AND ADDITIONALLY IF FEELING DRY MOUTH AND OTHER BS SYMPTOMS. HE TAKES THE FOLLOWING OTC: MAG 400MG DAILY ASPIRIN 81MG DAILY
--- NOTE | 2019-04-03 13:57 | NUR ---
RD ASSESSMENT PMHx: HTN; T1DM; CAD; PAD; non-Hodgkins lymphoma (currently in remission) PT INTERACTION: Pt was awake and pleasant during nutrition assessment. Pt states current appetite is lousy and had been for some time. Note avg PO intake <25% x1d, per chart review. Pt states following a regular diet at home, though tries to avoid CHOs. Pt states no recent issues with n/v at this time. Pt states chronic episodes of constipation and diarrhea, and that his last BM was 03/28. Note pt currently on bowel regimen of colace BID; and senna BID, per chart review. Pt states some recent wt loss d/t poor appetite, but could not give amount/timeframe. Note unable to determine recent wt hx, per chart review. Pt states current DM management as complicated. 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 "I got a call from the pump company about replacing it because of it's age earlier this year but they needed my wood heel fitter machine to sign off on replacing it. I told them I hadn't seen or heard from my doctor in months." Pt states current management of DM involves bolus insulin at meal times, though this causes drastic spikes. "It is usually now in the 400-500 range since my pump stopped working." ABNORMAL NUTRITION-RELATED LAB VALUES LOW: K 3.5; Ca 7.9; Pro 5.6 HIGH: Cl 109; BUN 42; cr 1.37; glu 145 Est. kcal needs: 8256-0449 kcal \\25-30 kcal/kg) Est. Pro needs: 66-83 g Pro | 0.8-1.0 g Pro/kg PES STATEMENT: Inadequate oral intake (NI-2.1) related to NPO status | constipation | diarrhea | loss of appetite as evidenced by pt interview | avg PO intake <25% x1d INTERVENTION: Pt is currently NPO. Would recommend advancing to consistent CHO diet, when medically able and as tolerated. Pt may benefit from nutrition supplementation if PO intake remains low after diet advancement. Pt may benefit from more aggressive bowel regimen if constipation continues. Will offer DM education prior to discharge. Will continue to follow and reassess as pt needs and status change. MONITOR/EVALUATE: PO Intake; Plan of Care; Hydration Status; Weight Status; Lab Values Lisa Bell, , RD, LD
[2019-04-03] MEDS ORDERED: aCETylcysteine 20% (MUCOMYST) 30ML SOLN VIAL INH SCH (15:00)
--- NOTE | 2019-04-03 17:53 | Cardiology Progress Note ---
Cardiology SOAP Progress Note Subjective: Still having cough with productive sputum. Improved chest pressure. Objective: I&O/Vital Signs 04/03/19 04/03/19 04/03/19 04/03/19 07:00 08:00 08:00 09:00 Pulse 89 85 B/P (MAP) 126/81 (96) Pulse Ox 94 95 96 O2 Delivery Room Air Room Air Room Air 04/03/19 04/03/19 04/03/19 04/03/19 11:00 11:30 12:33 13:00 Pulse 94 112 104 B/P (MAP) 129/83 (98) 145/97 (113) Pulse Ox 94 95 97 O2 Delivery Room Air Room Air 04/03/19 04/03/19 04/03/19 16:00 16:00 16:00 Temp 36.4 Pulse 104 B/P (MAP) 152/107 (122) Pulse Ox 96 93 O2 Delivery Room Air Room Air 04/03/19 00:00 Intake Total 2550 ml Output Total 450 ml Balance 2100 ml Weight (Pounds): 187 Weight (Ounces): 2.0 Weight (Calculated Kilograms): 84.637510 Constitutional: AAO x 3 Respiratory: chest is bilaterally symmetric, lungs clear to auscultation Cardiovascular: regular rate-rhythm, S1 and S2 Gastrointestional: soft, audible bowel sounds; No spleenomegaly Extremities: No clubbing, No cyanosis; no lower extremity edema bilateral; No significant edema Neurologic/Psychiatric: no motor/sensory deficits, alert, normal mood/affect, oriented x 3, power is 5/5 both on sides Skin: normal color, warm/dry; No rash, No ulcerations Results/Procedures: Labs Laboratory Tests 04/02/19 20:40: Glucometer 87 04/02/19 20:41: Troponin I < 0.028 04/03/19 02:50: White Blood Count 7.3, Red Blood Count 4.21L, Hemoglobin 13.7, Hematocrit 40, Mean Corpuscular Volume 95, Mean Corpuscular Hemoglobin 33, Mean Corpuscular Hemoglobin Concent 34, Red Cell Distribution Width 13.3, Platelet Count 194, [place] Platelet Volume 10.5H, Neutrophils (%) (Auto) 65, Lymphocytes (%) (Auto) 21, Monocytes (%) (Auto) 13H, Eosinophils (%) (Auto) 1, Basophils (%) (Auto) 0, Neutrophils # (Auto) 4.8, Lymphocytes # (Auto) 1.5, Monocytes # (Auto) 1.0, Eosinophils # (Auto) 0.1, Basophils # (Auto) 0.0, Sodium Level 142, Potassium Level 3.5L, Chloride Level 109H, Carbon Dioxide Level 18L, Anion Gap 15H, Blood Urea Nitrogen 42H, Creatinine 1.37H, Estimat Glomerular Filtration Rate 51, BUN/Creatinine Ratio 31, Glucose Level 59*L, Calcium Level 7.9L, Corrected Calcium 8.5, Total Bilirubin 0.7, Aspartate Amino Transf (AST/SGOT) 15, Alanine Aminotransferase (ALT/SGPT) 13, Alkaline Phosphatase 84, Total Protein 5.6L, Albumin 3.2, Triglycerides Level 107, Cholesterol Level 169, LDL Cholesterol Direct 125, VLDL Cholesterol 21, HDL Cholesterol 33L 04/03/19 04:51: Glucometer 103 04/03/19 07:30: Glucometer 145H 04/03/19 10:58: Glucometer 215H 04/03/19 15:08: Glucometer 316H A/P: Assessment/Dx: Chest pressure, Cough with productive sputum, Severe diabetes Plan: Chest pressure, coronary angiography -6 months ago. However due to severe uncontrolled diabetes, I will recommend stress testing. Serial troponin. Cough with productive sputum, low threshold for treating pneumonia. Severe diabetes, deferred to the primary team. Thank you for your consultation. Please call me if you have any questions. Johana Rosario MD, FACP, FACC, FSCAI, FHRS, CCDS Interventional Cardiology Cardiac Electrophysiology Vascular Medicine and Endovascular Interventions Clinical Quality Measures AMI/AHF: ASA po Prior to arrival: Yes (324 BY EMS) Isak ROSARIO MD Apr 03, 2019 17:53
[2019-04-03] MEDS ORDERED: SACUBITRIL/VALSARTAN 24/26 MG (ENTRESTO) TABLET PO SCH (21:00)
[2019-04-03] MEDS ORDERED: guaiFENesin (MUCINEX) 600 MG TAB PO SCH (21:00)
--- NOTE | 2019-04-03 23:10 | NUR ---
PT ANGRY, WANTS TO LEAVE, STATES HE CAN'T GET ANY SLEEP HERE. INFORMED HIM THAT WE HAVE TO COME INTO ROOM PERIODICALLY TO CHECK ON HIM. DR BASS NOTIFIED, IV AND PORT ACCESS REMOVED. PT SIGNED AMA PAPERS
[2019-04-04] MEDS ORDERED: MAGNESIUM OXIDE (MAG-OX)400 MG TAB PO SCH (08:00)
[2019-04-04] MEDS ORDERED: predniSONE 5 MG TAB PO SCH (09:00)
[2019-04-04] MEDS ORDERED: ASPIRIN E.C. 81 MG (ECOTRIN) TAB PO SCH (09:00)
--- NOTE | 2019-04-06 16:25 | Cardiology Stress Test Report ---
Stress Test Report Type of NM Stress Test: Test Type: LEXISCAN 0.4MG/5ML Date of Procedure/Referring: Date of Procedure: Apr 03, 2019 PCP Carmela Marley MD Admitting Physician Davis Caldera DO Indications: Chest pain, diabetes Baseline Heart Rate: 96 Baseline Blood Pressure: Blood Pressure Systolic: 147 Blood Pressure Diastolic: 90 Baseline EKG: Baseline EKG: sinus rhythm Summary & Conclusion: Summary: The patient was brought to the stress lab after informed consent was taken. Stress test was performed according to the Lexiscan protocol. 0.4 mg of IV Lexiscan was given. Low-grade exercise was performed. Baseline EKG showed sinus rhythm at 96 BPM. Blood pressure 138/95 mmHg. Maximum heart rate 119 BPM. Blood pressure 143/90 mmHg. Patient did not have any chest pain, arrhythmias or ST segment changes during the stress test. 9.66 mCi of Myoview were given for rest imaging and 31.3 mCi of Myoview given for stress imaging. Transient ischemic dilatation score 1.0, EF 62 percent. Normal wall motion. Normal myocardial perfusion imaging during rest and stress. Conclusion: Pharmacological stress test was negative for ischemia. Normal LV function with no wall motion abnormalities. Normal myocardial perfusion imaging during rest and stress. Isak HERRERA MD Apr 06, 2019 16:25
== END 2019-04-03 23:10 | disposition left against medical advice (07) ==
LOC: EDUNIT# 08:24 → ER 08:26 → ICU 10:35
PROVIDERS: ADMIT Internal Medicine; ATTEND Internal Medicine
DX: E11.65 Type 2 diabetes mellitus with hyperglycemia (principal); I25.10 Atherosclerotic heart disease of native coronary artery without angina pectoris; E11.22 Type 2 diabetes mellitus with diabetic chronic kidney disease; E11.40 Type 2 diabetes mellitus with diabetic neuropathy, unspecified; I50.9 Heart failure, unspecified; I13.0 Hypertensive heart and chronic kidney disease with heart failure and stage 1 through stage 4 chronic kidney disease, or unspecified chronic kidney disease; N18.9 Chronic kidney disease, unspecified; N17.9 Acute kidney failure, unspecified; K59.09 Other constipation; M06.9 Rheumatoid arthritis, unspecified; C85.90 Non-Hodgkin lymphoma, unspecified, unspecified site; R07.81 Pleurodynia; R58 Hemorrhage, not elsewhere classified; Z88.8 Allergy status to other drugs, medicaments and biological substances; W01.0XXA Fall on same level from slipping, tripping and stumbling without subsequent striking against object, initial encounter; Z88.5 Allergy status to narcotic agent; Z79.82 Long term (current) use of aspirin; Z79.4 Long term (current) use of insulin; Z79.899 Other long term (current) drug therapy; Z87.891 Personal history of nicotine dependence; Z82.49 Family history of ischemic heart disease and other diseases of the circulatory system; Z83.3 Family history of diabetes mellitus
CPT/HCPCS: 36415; 71045; 71046; 71100; 74176; 78452; 80053; 80061; 82962; 83735; 83874; 83880; 84484; 85025; 85610; 85730; 93005; 93017; 93041; 93306; 96361; 96372; 96374

== ENCOUNTER → 2019-04-06 | Outpatient (CLI) | payer MEDICARE ==
[~2019-04-06] MED LIST changes: +INSU100V35 SC; +MAGN400T39 PO
== END | disposition home or self-care (01) ==
LOC: PREOP 05:32
PROVIDERS: ATTEND Surgery
DX: Z01.818 Encounter for other preprocedural examination (principal)

== ENCOUNTER 2019-04-13 08:54 | Outpatient (RCR) | payer MEDICARE ==
[~2019-04-13 08:54] MED LIST changes: -MAGN400T6 PO; +MAGN400T8 PO; -METO-387 PO; +MTP25TSR PO; -SACU1TAB PO; +SACU1TAB2 PO
[2019-04-13 09:12] LABS: BASOPHILS # (AUTO) 0.1 10^3/uL (0.0-0.1); BASOPHILS % (AUTO) 1 % (0-10); EOSINOPHILS # (AUTO) 0.1 10^3/uL (0.0-0.3); EOSINOPHILS % (AUTO) 2 % (0-10); HEMATOCRIT 42 % (40-54); HEMOGLOBIN 13.8 G/DL (13.3-17.7); LYMPHOCYTES % (AUTO) 18 % (12-44); MEAN CORPUSCULAR HEMOGLOBIN 32 PG (25-34); MEAN CORPUSCULAR HGB CONC 33 G/DL (32-36); MEAN CORPUSCULAR VOLUME 97 FL (80-99); MEAN PLATELET VOLUME 9.9 FL (7.4-10.4); MONOCYTES # (AUTO) 0.6 X 10^3 (0.0-1.0); MONOCYTES % (AUTO) 10 % (0-12); NEUTROPHILS # (AUTO) 3.9 X 10^3 (1.8-7.8); NEUTROPHILS % (AUTO) 69 % (42-75); PLATELET COUNT 251 10^3/uL (130-400); WHITE BLOOD COUNT 5.7 10^3/uL (4.3-11.0)
[2019-04-13 09:30] LABS: ALBUMIN 3.3 GM/DL (3.2-4.5); BILIRUBIN,TOTAL 0.3 MG/DL (0.1-1.0); CREATININE SERUM 1.24 MG/DL (0.60-1.30); POTASSIUM 3.9 MMOL/L (3.6-5.0); TOTAL PROTEIN 6.1 GM/DL (6.4-8.2)
== END 2019-04-19 | disposition home or self-care (01) ==
LOC: ONC 08:54
PROVIDERS: ATTEND Internal Medicine Hematology & Oncology
DX: C85.86 Other specified types of non-Hodgkin lymphoma, intrapelvic lymph nodes (principal); C88.0 Waldenstrom macroglobulinemia; Z98.890 Other specified postprocedural states
CPT/HCPCS: 80053; 82784; 83883; 84155; 84165; 85025; 99213

== ENCOUNTER 2019-06-14 06:00 | Outpatient (CLI) | payer MEDICARE ==
[~2019-06-14] VITALS: Ht 177.8 cm; Wt 79.5 kg
== END 2019-06-14 12:31 | disposition home or self-care (01) ==
LOC: PREOP 06:00
PROVIDERS: ATTEND Surgery
DX: Z01.818 Encounter for other preprocedural examination (principal)

== ENCOUNTER 2019-06-21 09:31 | Day surgery (SDC) | payer MEDICARE ==
[2019-06-21] VITALS (15 sets, daily range): BP systolic 92–133; BP diastolic 55–86
[~2019-06-21] VITALS: Ht 177.8 cm; Wt 79.5 kg
[2019-06-21] MEDS ORDERED: NS IV 500 ML 500 ML IV PRN (09:42)
[2019-06-21] MEDS ORDERED: NS IV 500 ML 500 ML ONE (09:45)
[2019-06-21] MEDS ORDERED: fentaNYL INJECTION 100 MCG/2 ML AMP IVP ONE (09:45)
[2019-06-21] MEDS ORDERED: LIDOCAINE JELLY 2% 6 ML SYRINGE MM PRN (09:45)
--- NOTE | 2019-06-21 09:51 | Conscious Sedation/ASA ---
Conscious Sedation Pre-Proced Time 09:45 ASA Score 3 For ASA 3 and 4: Consider anesthesia and medical clearance. Also, for patients with a history of failed moderate sedation consider anesthesia. Airway Lungs Heart ASA score ASA 1: a normal healthy patient ASA 2: a patient with a mild systemic disease (mid diabetes, controlled hypertension, obesity ASA 3: a patient with a severe systemic disease that limits activity (angina, COPD, prior Myocardial infarction) ASA 4: a patient with an incapacitating disease that is a constant threat to life (CHF, renal failure) ASA 5: a moribund patient not expected to survive 24 hrs. (ruptured aneurysm) ASA 6: a declared brain- patient whose organs are being harvested. For emergent operations, add the letter E after the classification Mallampati Classification Grade 2 Sedation Plan Analgesia, Amnesia, Plan communicated to team members, Discussed options with patient/fam, Discussed risks with patient/fam The patient is an appropriate candidate to undergo the planned procedure, sedation, and anesthesia. The patient immediately re-assessed prior to indication. THERESA HERRERA MD Jun 21, 2019 09:51
--- NOTE | 2019-06-21 09:52 | Progress Note-Pre Operative ---
Pre-Operative Progress Note H&P Reviewed The H&P was reviewed, patient examined and no changes noted. Date Seen by Provider: Jun 21, 2019 Time Seen by Provider: :45 Date H&P Reviewed: Jun 21, 2019 Time H&P Reviewed: :45 Pre-Operative Diagnosis: change bowel habits, hx lymphoma THERESA HERRERA MD Jun 21, 2019 09:52
--- NOTE | 2019-06-21 09:54 | Discharge Inst-Surgical ---
D/C Lap Instructions-JAVIER Follow Up Activity as tolerated High Fiber Diet 25g or more per day Avoid Alcohol, Caffeine, Spicy [place] and Acid foods. Drink 64 fluid oz or more of fluids per day. Symptoms to Report: Fever over 101 degree F, Nausea/Vomiting If any problems/questions: Contact your physician or go to Emergency Room THERESA HERRERA MD Jun 21, 2019 09:53
[2019-06-21] MEDS ORDERED: ACETAMINOPHEN 325 MG TABLET PO PRN (10:00)
[2019-06-21] MEDS ORDERED: morphine INJ 10 MG/ML 1ML (SYR OR VIAL) IVP PRN ×2 (10:00)
[2019-06-21] MEDS ORDERED: ONDANSETRON 4 MG/2 ML (SDV) Z0FRAN IVP PRN (10:00)
[2019-06-21] MEDS ORDERED: LIDOCAINE JELLY 2% 6 ML SYRINGE ONE (10:53)
[2019-06-21] MEDS ORDERED: fentaNYL INJECTION 100 MCG/2 ML AMP ONE (10:53)
[2019-06-21] MEDS ORDERED: MIDAZOLAM 5 MG/5 ML (VERSED) VIAL ONE (10:54)
[2019-06-21] MEDS: MIDAZOLAM 5 MG/5 ML (VERSED) VIAL IV PRN ×2 (11:05→11:09)
--- NOTE | 2019-06-21 14:49 | OPERATIVE REPORT ---
DATE OF SERVICE: 06/21/2019 ATTENDING PRIMARY CARE PHYSICIAN: Davis Caldera DO. PREOPERATIVE DIAGNOSIS: Change in bowel habits with history of lymphoma. POSTOPERATIVE DIAGNOSIS: Normal colon and rectum. PROCEDURE: Colonoscopy. SURGEON: Theresa Morrison MD. ANESTHESIA: Conscious sedation. ESTIMATED BLOOD LOSS: Minimal. FINDINGS: Normal colon and rectum with a normal anastomosis. DISPOSITION: The patient tolerated the procedure well. INDICATIONS: The patient is a 74-year-old male known to us. We had first seen him in 2008 for change in bowel habits. He was found to have a mild proctitis and he was seen by gastroenterology, where mesalamine were prescribed and he had improved over time. We had done a followup colonoscopy and he was found to have a small benign tubular adenoma as well. He was diagnosed with lymphoma and this did present as a large abdominal mass causing bladder compression as well as colonic compression causing obstruction and he did undergo a diverting colostomy and then underwent chemotherapy as well as a stem cell transplant. A year and a half later, he had the colostomy reversed. He reports that he has had some change in bowel habits including soft or pasty stool. No red blood per rectum and no dark tarry stools. He also does not report any systemic symptoms. DESCRIPTION OF PROCEDURE: The patient was brought to the endoscopy suite and laid in a left lateral decubitus position. After adequate IV pain and sedative medications and conscious sedation anesthesia, a digital rectal examination was performed, which revealed mild chronic stage I external and internal hemorrhoids, not actively edematous nor inflamed and no bleeding. Normal sphincter tone was felt and there were no palpable masses. Prostate gland was palpable and appeared normal. The endoscope was then intubated and anus and rectum gently insufflated. The endoscope was then advanced through the valves of Saavedra of the rectum with no polyps or any neoplasms identified. Through the sigmoid colon, no diverticulosis was identified. The endoscope was then advanced through what appeared to be the descending and transverse colon to the area of what appeared to be a transverse to small bowel anastomosis. This appeared normal with no lesions identified. The endoscope was then slowly withdrawn while taking a second look and suctioning of residual air with no additional findings. The patient tolerated the procedure well. We feel that the most likely etiology of his symptoms is functional and may be related to diet as well as medications and we will recommend the addition of fiber supplementation to at least 30 grams daily to promote soft stools on a daily basis that are not runny and soft with minimal form as well as prevention of hard constipated well-formed stools. Once he finds that balance, he should continue with that amount of fiber and water supplementation on a daily basis. Job ID: [id number] DocumentID: [id number] Dictated Date: 06/21/2019 11:23:41 Fire Alarm Technician Date: 06/21/2019 14:49:04 Dictated By: THERESA MORRISON MD
== END 2019-06-21 12:30 | disposition home or self-care (01) ==
LOC: ENDO 09:31
PROVIDERS: ATTEND Surgery
DX: K64.0 First degree hemorrhoids (principal); K64.4 Residual hemorrhoidal skin tags; M35.00 Sjogren syndrome, unspecified; M06.9 Rheumatoid arthritis, unspecified; E11.9 Type 2 diabetes mellitus without complications; E78.00 Pure hypercholesterolemia, unspecified; Z85.72 Personal history of non-Hodgkin lymphomas; Z98.0 Intestinal bypass and anastomosis status; Z88.8 Allergy status to other drugs, medicaments and biological substances; Z88.5 Allergy status to narcotic agent; Z79.4 Long term (current) use of insulin; Z79.899 Other long term (current) drug therapy; Z79.82 Long term (current) use of aspirin; Z87.891 Personal history of nicotine dependence
CPT/HCPCS: 82962

== ENCOUNTER 2019-07-17 13:26 | Outpatient (RCR) | payer MEDICARE ==
[2019-07-17 13:54] LABS: BASOPHILS % (AUTO) 0 % (0-10); EOSINOPHILS % (AUTO) 1 % (0-10); HEMATOCRIT 43 % (40-54); HEMOGLOBIN 14.1 G/DL (13.3-17.7); LYMPHOCYTES # (AUTO) 0.8 X 10^3 (1.0-4.0); LYMPHOCYTES % (AUTO) 11 % (12-44); MEAN CORPUSCULAR HEMOGLOBIN 31 PG (25-34); MEAN CORPUSCULAR HGB CONC 33 G/DL (32-36); MEAN CORPUSCULAR VOLUME 95 FL (80-99); MEAN PLATELET VOLUME 10.2 FL (7.4-10.4); MONOCYTES # (AUTO) 0.6 X 10^3 (0.0-1.0); MONOCYTES % (AUTO) 8 % (0-12); NEUTROPHILS # (AUTO) 5.7 X 10^3 (1.8-7.8); NEUTROPHILS % (AUTO) 80 % (42-75); PLATELET COUNT 190 10^3/uL (130-400); RED CELL DISTRIBUTION WIDTH 13.4 % (10.0-14.5); WHITE BLOOD COUNT 7.2 10^3/uL (4.3-11.0)
[2019-07-17 14:05] LABS: ALBUMIN 3.5 GM/DL (3.2-4.5)
[2019-07-17 14:06] LABS: CALCIUM 8.9 MG/DL (8.5-10.1)
[2019-07-17 14:07] LABS: TOTAL PROTEIN 6.3 GM/DL (6.4-8.2)
[2019-07-17 14:09] LABS: BILIRUBIN,TOTAL 0.4 MG/DL (0.1-1.0)
[2019-07-17 14:11] LABS: CREATININE SERUM 1.36 MG/DL (0.60-1.30)
== END 2019-07-19 | disposition home or self-care (01) ==
LOC: ONC 13:26
PROVIDERS: ATTEND Internal Medicine Hematology & Oncology
DX: C85.86 Other specified types of non-Hodgkin lymphoma, intrapelvic lymph nodes (principal); C88.0 Waldenstrom macroglobulinemia; Z98.890 Other specified postprocedural states; Z45.2 Encounter for adjustment and management of vascular access device
CPT/HCPCS: 36591; 80053; 82784; 83883; 84155; 84165; 85025; 96523

== ENCOUNTER 2019-07-24 09:26 | Outpatient (RCR) | payer MEDICARE ==
[2019-08-02] MEDS ORDERED: INSU100V35 SQ (08:05)
[2019-09-28] MEDS ORDERED: CYCL5TAB PO (06:54)
[2019-09-28] MEDS ORDERED: TRAM50TA3 PO (06:54)
[2019-09-28] MEDS ORDERED: ACET1TAB43 PO (06:54)
[2019-09-28] MEDS ORDERED: VALA10007 PO (06:54)
[2019-10-03] MEDS ORDERED: HYDR-4342 PO (09:13)
[2019-10-03] MEDS ORDERED: CIPR500T4 PO (09:13)
[2019-10-03] MEDS ORDERED: METR-145 PO (09:13)
[2019-10-05] MEDS ORDERED: TRM50T PO (08:29)
== END 2019-10-04 12:50 | disposition home or self-care (01) ==
LOC: ONC 09:26
PROVIDERS: ATTEND Internal Medicine Hematology & Oncology
DX: C85.86 Other specified types of non-Hodgkin lymphoma, intrapelvic lymph nodes (principal); C88.0 Waldenstrom macroglobulinemia; E11.9 Type 2 diabetes mellitus without complications; Z98.890 Other specified postprocedural states
CPT/HCPCS: 99213

== ENCOUNTER 2019-09-28 06:39 | Observation (INO) | payer MEDICARE ==
[2019-09-28] VITALS (11 sets, daily range): BP systolic 96–125; BP diastolic 59–87
[~2019-09-28] VITALS: Ht 175 cm; Wt 81.0 kg
[~2019-09-28 06:39] MED LIST changes: +INSU100V35 SQ
[2019-09-28] MEDS ORDERED: ASPIRIN 81 MG CHEW (CHILDREN'S ASA) PO ONE (06:45)
[2019-09-28] MEDS ORDERED: VALA10007 PO (06:54)
[2019-09-28] MEDS ORDERED: CYCL5TAB PO (06:54)
[2019-09-28] MEDS ORDERED: TRAM50TA3 PO (06:54)
[2019-09-28] MEDS ORDERED: ACET1TAB43 PO (06:54)
--- NOTE | 2019-09-28 07:04 | ED Chest Pain ---
General Chief Complaint: Chest Pain Stated Complaint: CP Source: patient (VERY LIMITED AND DIFFICULT HISTORIAN) History of Present Illness Date Seen by Provider: Sep 28, 2019 Time Seen by Provider: 06:41 Initial Comments PT ARRIVES VIA POV FROM HOME C/O CHEST PAIN --BEGAN 25-30 MINUTES PRIOR TO ARRIVAL, ON WAKING PAIN IN CENTER OF CHEST RATES PAIN 6-7 / 10 AT THIS TIME C/O SHORTNESS OF BREATH + SWEATS + NAUSEA UNABLE TO GIVE ANY OTHER INFORMATIONS PCP: DEX HUTCHISON Allergies and Home Medications Allergies Coded Allergies: hydrocodone (Verified Allergy, Intermediate, RASH, 07/14/17) oxycodone (Verified Allergy, Intermediate, RASH, 07/14/17) formaldehyde (Verified Allergy, Unknown, 12/20/07) Home Medications Aspirin 81 Mg Tablet.dr, 81 MG PO DAILY, (Reported) Hydrochlorothiazide 25 Mg Tablet, 25 MG PO DAILY, (Reported) Magnesium Oxide 400 Mg Tablet, 400 MG PO DAILY, (Reported) Metoprolol Succinate 25 Mg Tab.er.24h, 25 MG PO DAILY, (Reported) Prednisone 5 Mg Tablet, 5 MG PO DAILY, (Reported) Sacubitril/Valsartan 1 Each Tablet, 1 TAB PO BID, (Reported) Patient Home Medication List Home Medication List Reviewed: Yes Review of Systems Review of Systems Constitutional: see HPI, diaphoresis Respiratory: See HPI, Shortness of Air Cardiovascular: See HPI, Chest Pain Gastrointestinal: See HPI, Nausea Skin: other (CURRENTLY HAS SHINGLES TO RIGHT SHOULDER AREA) Psychiatric/Neurological: No Symptoms Reported Endocrine: Other (PT IS INSULIN DEPENDENT DIABETIC WITH INSULIN PUMP) Hematologic/Lymphatic: Other (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) Past Pjbzayu-Ffzlmx-Uyfjed Hx Past Med/Social Hx: Reviewed and Corrections made Patient Social History Alcohol Use: Occasionally Uses Alcohol Beverage of Choice: Whiskey Recreational Drug Use: No Smoking Status: Former Smoker Type Used: Cigarettes Former Smoker, Quit: Jul 28, 1990 2nd Hand Smoke Exposure: No Recent Hopitalizations: No Immunizations Up To Date Tetanus Booster (TDap): Unknown PED Vaccines UTD: Yes Date of Pneumonia Vaccine: Aug 02, 2011 Date of Influenza Vaccine: Feb 08, 2019 Seasonal Allergies Seasonal Allergies: No Past Medical History Surgeries: Yes (COLON RESECTION/COLOSTOMY/REVERSAL; HERNIA REPAIR;PORT R CHEST) Abdominal, Bowel Surgery, Cardiac, Orthopedic, Penile Implant, Renal, Transurethral Resection, Vascular Surgery Respiratory: No Cardiac: Yes (CARDIAC CATHS--MILD TO MODERATE DISEASE, NO INTERVENTION; ) Coronary Artery Disease, Heart Murmur, High Cholesterol, Hypertension, Peripheral Vascular, Valvular Heart Disease Neurological: Yes Neuropathy Reproductive Disorders: No Sexually Transmitted Disease: No HIV/AIDS: No Genitourinary: Yes (TURP, CYSTOSCOPIES; URETERAL OBSTRUCTION DUE TO LYMPHOMA) Benign Prostatic Hyperpl, Prostate Problems, Bladder Infection Gastrointestinal: Yes (COLON RESECTION/COLOSTOMY/REVERSAL ) Abdominal Hernia, Obstructive Bowel, Chronic Constipation, Gall Bladder Disease Musculoskeletal: Yes Rheumatoid Arthritis Endocrine: Yes (INSULIN PUMP) Diabetes, Insulin dep HEENT: No Cancer: Yes (NON HODGKIN'S LYMPHOMA DX 2014--CURRENTLY IN REMISSION) Lymphoma Did You Recieve Any Treatments: Yes What Type of Treatment Did You: Chemotherapy, Other Psychosocial: No Integumentary: No Blood Disorders: No Adverse Reaction/Blood Tranf: No Family Medical History Congestive heart failure 19 MOTHER Family history: Diabetes mellitus 19 MOTHER No Family History of: Abdominal aortic aneurysm Alcoholism Cancer Dementia Family history: Allergy Family history: Alzheimer's disease Family history: Arthritis Family history: Asthma Family history: Breast disease Family history: Cardiovascular disease Family history: Gastrointestinal disease Family history: Thyroid disorder Myocardial infarction Psychotic disorder Seizure disorder Stroke 08/02/19--PERIPHERAL ANGIOGRAM--SMALL VESSEL DISEASE, NO INTERVENTION. 06/21/19--NORMAL COLONOSCOPY Physical Exam Vital Signs Vital Signs - First Documented Capillary Refill : Less Than 3 Seconds Height, Weight, BMI Height: 5'10.00" Weight: 187lbs. 2.0oz. 84.388890fs; 26.44 BMI Method:Estimated General Appearance: No Apparent Distress, WD/WN, Other (WALKS IN HOLDING CENTER OF CHEST; DIAPHORETIC; SOMEWHAT LETHARGIC) HEENT: PERRL/EOMI Neck: Normal Inspection Respiratory: Normal Breath Sounds, No Accessory Muscle Use, No Respiratory Distress Cardiovascular: Regular Rate, Rhythm, No Edema, No JVD, No Murmur, Normal Peripheral Pulses Gastrointestinal: Non Tender, Soft Extremity: Normal Inspection, No Pedal Edema Neurologic/Psychiatric: Alert, Oriented x3, No Motor/Sensory Deficits, post graduate intern II- XII Norm as Tested Skin: Normal Color, Damp, Diaphoresis, Other (OLDER APPEARING SHINGLES RASH TO RIGHT SHOULDER /LATERAL NECK AREA) Procedures/Interventions Suture Size: 4-0, 5-0 Progress/Results/Core Measures Results/Orders Lab Results Laboratory Tests Test 09/28/19 06:57 09/28/19 07:00 09/28/19 07:25 Range/Units Glucometer 218 H 70-110 MG/DL White Blood Count 6.0 4.3-11.0 10^3/uL Red Blood Count 4.23 L 4.35-5.85 10^6/uL Hemoglobin 13.1 L 13.3-17.7 G/DL Hematocrit 39 L 40-54 % Mean Corpuscular Volume 93 80-99 FL Mean Corpuscular Hemoglobin 31 25-34 PG Mean Corpuscular Hemoglobin Concent 33 32-36 G/DL Red Cell Distribution Width 13.8 10.0-14.5 % Platelet Count 140 130-400 10^3/uL Mean Platelet Volume 10.7 H 7.4-10.4 FL Neutrophils (%) (Auto) 59 42-75 % Lymphocytes (%) (Auto) 20 12-44 % Monocytes (%) (Auto) 19 H 0-12 % Eosinophils (%) (Auto) 2 0-10 % Basophils (%) (Auto) 0 0-10 % Neutrophils # (Auto) 3.5 1.8-7.8 X 10^3 Lymphocytes # (Auto) 1.2 1.0-4.0 X 10^3 Monocytes # (Auto) 1.1 H 0.0-1.0 X 10^3 Eosinophils # (Auto) 0.1 0.0-0.3 10^3/uL Basophils # (Auto) 0.0 0.0-0.1 10^3/uL Neutrophils % (Manual) 62 % Lymphocytes % (Manual) 15 % Monocytes % (Manual) 20 % Eosinophils % (Manual) 2 % Basophils % (Manual) 1 % Band Neutrophils 0 % Blood Morphology Comment NORMAL Prothrombin Time 13.1 12.2-14.7 SEC INR Comment 1.0 0.8-1.4 Activated Partial Thromboplast Time 27 24-35 SEC D-Dimer 1.16 H 0.00-0.49 UG/ML Sodium Level 133 L 135-145 MMOL/L Potassium Level 3.8 3.6-5.0 MMOL/L Chloride Level 102 98-107 MMOL/L Carbon Dioxide Level 22 21-32 MMOL/L Anion Gap 9 5-14 MMOL/L Blood Urea Nitrogen 30 H 7-18 MG/DL Creatinine 1.33 H 0.60-1.30 MG/DL Estimat Glomerular Filtration Rate 53 BUN/Creatinine Ratio 23 Glucose Level 278 H 70-105 MG/DL Calcium Level 8.3 L 8.5-10.1 MG/DL Corrected Calcium 8.9 8.5-10.1 MG/DL Magnesium Level 1.6 1.6-2.4 MG/DL Total Bilirubin 0.7 0.1-1.0 MG/DL Aspartate Amino Transf (AST/SGOT) 48 H 5-34 U/L Alanine Aminotransferase (ALT/SGPT) 21 0-55 U/L Alkaline Phosphatase 311 H 40-136 U/L Lactate Dehydrogenase 187 125-220 U/L Total Creatine Kinase 75 30-200 U/L Creatine Kinase MB 1.0 <6.6 NG/ML Myoglobin 33.4 10.0-92.0 NG/ML Troponin I < 0.028 <0.028 NG/ML C-Reactive Protein High Sensitivity 8.36 H 0.00-0.50 MG/DL B-Type Natriuretic Peptide 425.7 H <100.0 PG/ML Total Protein 5.7 L 6.4-8.2 GM/DL Albumin 3.3 3.2-4.5 GM/DL Amylase Level 23 L 25-125 U/L Lipase 4 L 8-78 U/L Procalcitonin 0.37 H <0.10 NG/ML Erythrocyte Sedimentation Rate 13 0-30 MM/HR My Orders Orders - OLIVIA ROMANO DO Cbc With Automated Diff (09/28/19 06:41) Magnesium (09/28/19 06:41) Chest 1 View, Ap/Pa Only (09/28/19:41) Ekg Tracing (09/28/19:41) Comprehensive Metabolic Panel (09/28/19:41) Myoglobin Serum (09/28/19:41) Protime With Inr (09/28/19:41) Partial Thromboplastin Time (09/28/19:41) O2 (09/28/19:41) Monitor-Rhythm Ecg Trace Only (09/28/19:41) Ed Iv/Invasive Line Start (6/25/20 06:41) Creatine Kinase (09/28/19 06:41) Creatine Kinase Mb (09/28/19 06:41) Lipase (09/28/19 06:41) Amylase (09/28/19 06:41) BNP (09/28/19 06:41) Fibrin Degradation Products (09/28/19 06:41) Troponin I (09/28/19 06:41) Nitroglycerin 0.4 Mg Btl 25's (Nitrostat (09/28/19 06:45) Aspirin Chewable Tablet (Baby Aspirin Ch (09/28/19 06:45) Procalcitonin (Pct) (09/28/19 06:41) Hs C Reactive Protein (09/28/19 06:41) Erythrocyte Sedimentation Rate (09/28/19 06:41) LDH (09/28/19 06:41) Coronavirus Sars-Cov-2 So 2018 (09/28/19 06:41) Accucheck Stat ONCE (09/28/19 06:54) Manual Differential (09/28/19 07:00) Ed Iv/Invasive Line Start (09/28/19 07:16) Ns Iv 1000 Ml (Sodium Chloride 0.9%) (09/28/19 07:16) Furosemide Injection (Lasix Injection) (09/28/19 07:45) Medications Given in ED Current Medications Medications Dose Ordered Sig/Lesly Route Start Time Stop Time Status Last Admin Dose Admin Aspirin 324 mg ONCE ONCE PO 09/28/19 06:45 09/28/19 06:46 DC 09/28/19 07:09 324 MG Furosemide 40 mg ONCE ONCE IVP 09/28/19 07:45 09/28/19 07:46 DC 09/28/19 08:16 40 MG Nitroglycerin 0.4 mg UD PRN SL 09/28/19 06:45 09/28/19 07:09 0.4 MG Vital Signs/I&O 09/28/19 09/28/19 09/28/19 06:40 06:40 06:40 Temp 36.9 Pulse 85 Resp 12 B/P (MAP) 137/90 (106) Pulse Ox 97 97 O2 Delivery Room Air Room Air Room Air Progress Progress Note : Progress Note PT SEEN IN COVID ROOM AND PPE WORN AT ALL TIMES COVID TESTING PERFORMED PER CURRENT HOSPITAL GUIDELINES GIVEN ASPIRIN AND NTG X 1 WITH COMPLETE RELIEF OF CHEST PAIN PT NOW FIXATED ON HIS ONGOING PAIN FROM SHINGLES Initial ECG Impression Date: Sep 28, 2019 Initial ECG Impression Time: 06:39 Initial ECG Rate: 81 Initial ECG Rhythm: Normal Sinus Diagnostic Imaging Comments CXR--PER RADIOLOGIST REPORT AT 0740 IMPRESSION: Mild central pulmonary venous congestion Reviewed: Reviewed by Me Departure Communication (Admissions) 0745--SPOKE WITH DR. BOWEN, HOSPITALIST, ACCEPTS PT FOR ADMIT. WILL CONSULT CARDIOLOGY Impression Primary Impression: Chest pain Additional Impressions: CHF (congestive heart failure) IDDM (insulin dependent diabetes mellitus) COVID P.U.I. RECENT SHINGLES RIGHT SHOULDER AREA Disposition: 09 ADMITTED INPATIENT Condition: Improved Admissions Decision to Admit Reason: Admit from ER (General) Decision to Admit/Date: Sep 28, 2019 Time/Decision to Admit Time: 07:45 Departure-Patient Inst. Referrals: KARLA WESTBROOK DO (PCP/Family) Primary Care Physician OLIVIA ROMANO DO Sep 28, 2019 07:04
[2019-09-28 07:05] LABS: BASOPHILS % (AUTO) 0 % (0-10); EOSINOPHILS # (AUTO) 0.1 10^3/uL (0.0-0.3); EOSINOPHILS % (AUTO) 2 % (0-10); HEMATOCRIT 39 % (40-54); HEMOGLOBIN 13.1 G/DL (13.3-17.7); LYMPHOCYTES # (AUTO) 1.2 X 10^3 (1.0-4.0); LYMPHOCYTES % (AUTO) 20 % (12-44); MEAN CORPUSCULAR HEMOGLOBIN 31 PG (25-34); MEAN CORPUSCULAR HGB CONC 33 G/DL (32-36); MEAN CORPUSCULAR VOLUME 93 FL (80-99); MEAN PLATELET VOLUME 10.7 FL (7.4-10.4); MONOCYTES # (AUTO) 1.1 X 10^3 (0.0-1.0); MONOCYTES % (AUTO) 19 % (0-12); NEUTROPHILS # (AUTO) 3.5 X 10^3 (1.8-7.8); NEUTROPHILS % (AUTO) 59 % (42-75); PLATELET COUNT 140 10^3/uL (130-400); RED CELL DISTRIBUTION WIDTH 13.8 % (10.0-14.5)
[2019-09-28] MEDS: NITROGLYCERIN 0.4 MG SL TABS BTL 25'S SL PRN ×4 (07:09→16:42)
--- NOTE | 2019-09-28 07:15 | NUR ---
PT IS HYPOTENSIVE AFTER ONE NITRO GIVEN. DR ROMANO NOTIFIED ET NEW ORDERS RECIEVED.
[2019-09-28] MEDS ORDERED: NS IV 1000 ML 1,000 ML IV SCH (07:16)
[2019-09-28 07:20] LABS: ALBUMIN 3.3 GM/DL (3.2-4.5)
[2019-09-28 07:21] LABS: POTASSIUM 3.8 MMOL/L (3.6-5.0)
[2019-09-28 07:22] LABS: CALCIUM 8.3 MG/DL (8.5-10.1)
[2019-09-28 07:23] LABS: TOTAL PROTEIN 5.7 GM/DL (6.4-8.2)
[2019-09-28 07:25] LABS: BILIRUBIN,TOTAL 0.7 MG/DL (0.1-1.0)
--- NOTE | 2019-09-28 07:25 | NUR ---
PT REPORTS NO CHEST PAIN AFTER THE ONE NITRO.
[2019-09-28 07:27] LABS: CREATININE SERUM 1.33 MG/DL (0.60-1.30)
[2019-09-28 07:29] LABS: MAGNESIUM 1.6 MG/DL (1.6-2.4)
--- NOTE | 2019-09-28 07:37 | Diagnostic Imaging Report ---
INDICATION: Chest pain. Comparison is made with prior examination from 08/02/2019. FINDINGS: Heart size is normal. There is some venous congestion. There is no pleural effusion or pneumothorax. Mediastinum is unremarkable. Ewsyqg-N-Bufi catheter has its tip in the superior vena cava. IMPRESSION: Mild central pulmonary venous congestion Dictated by: Dictated on workstation # [id number]
[2019-09-28] MEDS ORDERED: FUROSEMIDE 40 MG/4 ML INJ (LASIX) IVP ONE (07:45)
[2019-09-28 07:59] LABS: BAND NEUTROPHILS 0 %; BASOPHILS % (MANUAL) 1 %; EOSINOPHILS % (MANUAL) 2 %; LYMPHOCYTES % (MANUAL) 15 %; MONOCYTES % (MANUAL) 20 %; NEUTROPHILS % (MANUAL) 62 %; RBC MORPH NORMAL
[2019-09-28 08:01] LABS: PROTHROMBIN TIME PATIENT 13.1 SEC (12.2-14.7)
--- OUTSIDE RECORDS SUMMARY | 2019-09-28 09:11 | XMS REPORT | Clinical Summary ---
Author Author [facility] Organization [facility] Address Unknown Phone Unavailable Care Team Providers Care Business Insight And Analytics Manager Name Role Phone Kev Sheffield MD Unavailable Becka Turcios MD Unavailable Curtis Welsh MD Unavailable Blayne Jarquin DO Unavailable Kiarra Vargas RN Unavailable Unavailable Davis Caldera PCP Anne Bridges PhD Unavailable Deborah Moscoso RN Unavailable Unavailable Roderick Bosch MD Unavailable Ruth Mercado ORACLE PROGRAMMER Unavailable Ladonna Rodríguez ORACLE PROGRAMMER Unavailable Joan Dawson RN Unavailable Unavailable [place] ORACLE PROGRAMMER Unavailable Amber Pickens RN Unavailable Unavailable Tonya Bobo MD Unavailable Valentine Finnegan RN Unavailable Unavailable Eve Ayala RN Unavailable Unavailable Source Comments Some departments are not documenting in the electronic medical record. If you d o not see the information that you expected, contact Release of Information in merged with [facility] Health Information Management department at [phone] for further assistan ce in locating additional records.[facility] Allergies Comments Active Allergy Reactions Severity Noted Date Formaldehyde RASH 04/24/2014 Medications End Date Status Medication Sig Dispensed Refills Start Date Active insulin pump -ASPART- by SubQ Pump 0 Patients Own route as directed. Novolog SubQ Insulin Pump settings: Timin7436-4200: 0.6 units/hr 4667-8154: 0.4 units/hr 3488-5878: 0.95 units/hr 6077-9495: 0.9 units/hr 1440-9339: 0.75 units/hr 9377-6673: 0.6 units/hr Active predniSONE (DELTASONE) 5 Take 1 Tab by 30 Tab 2 mg tablet mouth daily. 5 Active magnesium oxide (MAG-OX) Take 400 mg 0 400 mg tablet by mouth daily. Active docusate (COLACE) 100 mg Take 100 mg 0 capsule by mouth twice daily. Active aspirin EC 81 mg tablet Take 81 mg by 0 mouth daily. Active oxyCODONE/acetaminophen Take 1-2 Tabs 40 Tab 0 (PERCOCET; ENDOCET; by mouth 6 ROXICET) 5/325 mg tablet every 4 hours as needed for Pain Earliest Fill Date: 07/25/15 Active polyethylene glycol 3350 Take 17 g by 238 g 3 (MIRALAX) 17 gram/dose mouth twice 6 powder daily. Active lenalidomide (REVLIMID) Take 10 mg by 0 10 mg capsule mouth daily. Take at the same time every day. Active ALPRAZolam (XANAX) 1 mg Take 1 mg by 0 tablet mouth at bedtime as needed for Anxiety. Active metoprolol XL (TOPROL XL) Take 25 mg by 0 25 mg extended release mouth daily. 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 H/O peripheral stem cell transplant 01/05/2015 Overview: Date of Transplant: 12/24/14 Preparative Regimen: BEAC Reduced or fully ablative: Full Disease: NHL Disease Status at Transplant: ME Cytogenetic/FISH at DIAGNOSIS: 45,X,-Y[ 7]/46,XY[12] CMV: NEG Cell Source: PSC, autologous Consents/Studies: 8322, blood, apheresi s, auto, H&P Coordinator: KIARRA VARGAS RN Pancytopenia due to chemotherapy 12/31/[address] 12/19/2014 T1DM (type 1 diabetes mellitus) 05/03/2014 Rheumatoid arthritis 05/03/2014 Resolved Problems Problem Noted Date Resolved Date Nystagmus 12/30/2014 01/08/2015 Constipation 12/30/2014 01/08/2015 Mucositis due to antineoplastic therapy 12/30/2014 01/08/2015 Nausea 12/30/2014 01/08/2015 Fluid retention in tissues 12/23/2014 01/08/2015 Chemotherapy-induced nausea and vomiting 12/23/2014 01/08/2015 Conditioning chemotherapy prior to peripheral blood s tem cell transplant 12/18/2014 01/06/2015 Hypomagnesemia 12/18/2014 01/08/2015 Insect bite of foot or toe of right foot 11/14/2014 01/08/2015 Immunizations Name Administration Dates Next Due Acthib Vaccine 11/04/2015, 09/12/2015, 10/2015 Flu Vaccine Trivalent >64 01/29/2016 Yo High-dose (Preservative Free) HEPATITIS B vaccine, 09/12/2015 unspecified (Historical) Hepatitis B Vaccine Adult 02/03/2016, 07/11/2015 3 Dose IM IPV 11/04/2015, 09/12/2015, 10/2015 Meningococcal Conjug 07/11/2015 Vaccine Pneumococcal 01/29/2016, 11/04/2015, 12/2015, 07/11/2015 Vaccine(13-[facility]/immunocompromised adult) Tdap Vaccine 11/04/2015, 09/12/2015, 10/2015 Family History Medical History Relation Name Comments Arthritis-rheumatoid Brother Heart Disease Brother Cancer-Prostate Father Diabetes Mother Heart Failure Mother Stroke Mother Thyroid Disease Mother Relation Name Status Comments Brother Brother Father Mother Social History Date Tobacco Use Types Packs/Day Years Used Quit: 04/27/1999 Former Smoker Cigarettes 0.75 25 Smokeless Tobacco: Never Used Comments: smoked for 25 years Drinks/Week oz/Week Comments Alcohol Use 2-3 drinks per day Yes Sex Assigned at Date Recorded Not on file Industry Job Start Date Occupation Not on file Not on file Not on file Travel End Travel History Travel Start No recent travel history available. Last Filed Vital Signs Reading Time Taken Comments Vital Sign 135/87 02/03/2016 10:29 AM CDT Blood Pressure 60 02/03/2016 10:29 AM CDT Pulse 36.7 C (98 F) 02/03/2016 10:29 AM CDT Temperature 16 02/03/2016 10:29 AM CDT Respiratory Rate 100% 02/03/2016 10:29 AM CDT Oxygen Saturation - - Inhaled Oxygen Concentration 76.3 kg (168 lb 3.4 oz) 02/03/2016 10:29 AM CDT Weight 175.3 cm (5' 9.02") 02/03/2016 10:29 AM CDT Height 24.83 02/03/2016 10:29 AM CDT Body Mass Index Plan of Treatment Health Maintenance Due Date Last Done Comments MEDICARE ANNUAL WELLNESS 1945 VISIT DILATED EYE EXAM 1964 FOOT EXAM 1964 MICROALBUMIN 1964 PHYSICAL (COMPREHENSIVE) 1964 EXAM COLORECTAL CANCER 1996 SCREENING SHINGLES RECOMBINANT 1996 VACCINE (1 of 2) ABDOMINAL AORTIC ANEURYSM 2011 SCREENING HBA1C 11/04/2014 05/07/2014 PNEUMONIA (PPSV23) 01/28/2017 01/29/2016, VACCINE (2 of 2 - PPSV23) 11/04/2015, 09/12/2015, Additional history exists INFLUENZA VACCINE 01/04/2020 01/29/2016 DTAP/TDAP VACCINES (4 - 11/03/2025 11/04/2015, Td) 09/12/2015, 07/11/2015 HEPATITIS C SCREENING Completed 04/29/2014 Implants Device Identifier Shelf Expiration Date Model / Serial / L ot Implanted Type Area Manufactur er [id number] / / Cutdown Kit Ea/[id number] CARDINAL Implanted: Qty: 1 on 01/08/2015 at [facility] Description:not an implant Results Not on filefrom Last 3 Months Insurance Type Payer Benefit Subscriber ID Effective Phone Address Plan / Dates Group Medicare MEDICARE MEDICARE xxxxxxxxxx 1984-P PART A AND resent B Medicare MEDICARE MEDICARE xxxxxxxxxx 2014-P TRANSPLANT resent PPO [facility] xxxxxxxxxxx 2014- Present ([place]) [place] [phone] Advance Directives Patient Director Insurance Explanation Type Date Recorded Advance 11/16/2014 3:54 PM Directive/DPOA Date Inactivated Comments Code Status Date Activated 07/25/2015 3:29 PM Full Code 07/22/2015 7:02 PM Provider has discussed Code Status No, more discussi on w/Patient or Family? needed 01/04/2015 4:15 PM Full Code 12/18/2014 8:09 AM Provider has discussed Code Status No, discussion no t w/Patient or Family? necessary based on Dx 05/15/2014 3:46 PM Full Code 04/24/2014 4:49 AM Provider has discussed Code Status Yes w/Patient or Family?
--- OUTSIDE RECORDS SUMMARY | 2019-09-28 09:15 | XMS REPORT | Continuity of Care Document ---
Author Organization Unknown Address Unknown Phone Unavailable Allergies Active Description Code Type Severity Reaction Onset Reported/Identified Relationship to Patient Clinical Status Yes HYDROCODONE-ACETAMINOPHEN UNKNOWN UNKNOWN Yes NO KNOWN DRUG ALLERGIES UNKNOWN NO KNOWN DRUG ALLERG Yes NO KNOWN DRUG ALLERGIES UNKNOWN UNKNOWN Yes OXYCODONE UNKNOWN UNKNOWN Yes formaldehyde [id number] Drug Allergy Unknown N/A 12/20/2007 Yes acetaminophen [id number] Albaro g Allergy Moderate RASH 07/14/2017 Yes hydrocodone [id number] Drug Aller gy Moderate RASH 07/14/2017 Yes oxycodone [id number] Drug Allergy Moderate RASH 07/14/2017 Medications Medication Packaging Start Date St op Date Route Dosage Sig ORPHENADRINE INJ 60 MG/2CC (NORFLEX) MG 09/25/2019 09/25/2019 ONCE&0907 ACETAMIN 300MG/CODIENE 30MG TAB (TYLENOL #3) MG 09/25/2019 09/25/2019 ONCE&0907 Hydrochlorothiazide tablet 2 5mg (Hydrodiuril 25mg) MG 09/26/2019 10/02/2019 Daily&0900 Problems Date Dx Coded Attending Type Code Diagnosis Diagnosed By 08/02/2013 KEREN ALBERTO MD Ot 250.0 0 DIAB GER WO COMPL, TYPE II OR UNSPEC TY 08/02/2013 KEREN ALBERTO MD Ot 600.0 0 HYPERTROPHY (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 URI 08/02/2013 KEREN ALBERTO MD Ot V58.6 7 LONG-TERM (CURRENT) USE OF INSULIN 08/15/2013 ETTA ROMANO DO Ot 596.0 BLADDER NECK OBSTRUCTION 08/15/2013 IDANIA ROMANO DOA K Ot 599.0 URIN TRACT INFECTION NOS 08/15/2013 IDANIA ROMANO DOA K Ot 599.71 GROSS HEMATURIA 03/22/2014 JENNIFER DOMINGUEZ [employer]IVATE MORTGAGE BANKER SAFE Ot 784.2 03/26/2014 MANPREET OVERTON CUSTOMER MANAGEMENT SPECIALIST Ot 788 .1 DYSURIA 03/27/2014 MANPREET OVERTON CUSTOMER MANAGEMENT SPECIALIST Ot 788 .1 03/28/2014 MANPREET OVERTON CUSTOMER MANAGEMENT SPECIALIST Ot 788 .1 04/18/2014 BARTOLO JURADO, NILO Fernandez Ot 388.70 04/18/2014 NILO MCFARLAND MD Ot 723 .1 04/18/2014 NILO MCFARLAND MD Ot 787.21 04/18/2014 DOLLY JURADO, KEREN Hair Ot 600.0 0 04/18/2014 DOLLY JURADO, KEREN A Ot V72.6 3 04/18/2014 DOLLY JURADO, KEREN A Ot V72.8 1 04/18/2014 DOLLY JURADO, KEREN A Ot V74.8 04/18/2014 JENNIFER DOMINGUEZ PRIVATE MORTGAGE BANKER SAFE Ot 784.2 04/18/2014 DOLLY JURADO, KEREN A Ot 789.0 0 04/18/2014 DOLLY JURADO, KEREN Hair Ot V81.5 04/19/2014 KEREN ALBERTO MD A Ot 789.0 9 04/21/2014 MONICA ROJAS MD Ot 250.80 DIAB W OTH SPEC MANIFEST, [...] ROJAS MD Ot 716.90 ARTHROPATHY NOS-UNSPEC 04/21/2014 MONICA ROJAS MD Ot 789.09 ABDOMINAL PAIN, OTHER SPECIFIED SITE 04/21/2014 MONICA ROJAS MD Ot 789.30 ABDOMINAL/PELVIC SWELLING,MASS/LUMP UNSP 04/21/2014 MONICA ROJAS MD Ot V58.65 LONG-TERM(CURRENT)USE OF STEROIDS 04/21/2014 MONICA ROJAS MD Ot V58.67 LONG-TERM (CURRENT) USE OF INSULIN 04/21/2014 MONICA ROJAS MD Ot V58.69 OTH MED,LT,CURRENT USE 05/05/2014 DOLLY JURADO, KEREN Hair Ot 789.0 0 05/05/2014 DOLLY JURADO, KEREN Hair Ot V81.5 05/05/2014 KEREN ALBERTO MD Ot 789.0 9 06/13/2014 Ot 202.80 OTH LYMPHOMAS EXTRANODAL SOLID ORGAN U 06/13/2014 Ot 550.90 UNI LAT INGUINAL HERNIA 06/13/2014 Ot 599.0 URIN TRACT INFECTION NOS 06/13/2014 Ot 787.02 BRIANA SEA ALONE 06/18/2014 Ot 202.80 OTH LYMPHOMAS EXTRANODAL SOLID ORGAN U 06/18/2014 Ot 250.00 JUANY B GER WO COMPL, TYPE II OR UNSPEC [...] CRYSTAL JURADO, MONICA Abdalla Ot V58.81 08/13/2014 NILO ALCALA MD Ot 569.62 [facility] COMPL/COLOSTOMY ENTEROSTOMY 08/13/2014 NILO ALCALA MD Ot V44 .3 COLOSTOMY STATUS 08/22/2014 CRYSTAL JURADO, MONICA Abdalla [...] 09/11/2014 Ot 195.3 09/13/2014 CRYSTAL JURADO, MONICA K Ot 202.80 09/13/2014 CRYSTAL JURADO, MONICA Abdalla [...] CRYSTAL JURADO, MONICA Abdalla Ot 202.80 11/07/2014 ALEX GALVANANTONIETTA S ADULT PROBATION OFFICER Ot 202.80 11/07/2014 NATANAEL GALVAN S ADULT PROBATION OFFICER Ot 250.00 11/07/2014 ALEX GALVANANTONIETTA S ADULT PROBATION OFFICER Ot 272.4 11/07/2014 GALVAN, HILANTONIETTA S ADULT PROBATION OFFICER Ot 356.9 11/07/2014 GALVAN, HILANTONIETTA S ADULT PROBATION OFFICER Ot 401.9 11/07/2014 NATANAEL GALVAN S ADULT PROBATION OFFICER Ot 564.00 11/07/2014 NATANAEL GALVAN S ADULT PROBATION OFFICER Ot 714.0 11/07/2014 ALEX GALVANANTONIETTA S ADULT PROBATION OFFICER Ot V44.3 11/07/2014 GALVAN, HILANTONIETTA S ADULT PROBATION OFFICER Ot V45.85 11/07/2014 ALEX GALVANANTONIETTA S ADULT PROBATION OFFICER Ot V58.69 11/09/2014 CRYSTAL JURADO, MONICA Abdalla Ot 200.70 11/26/2014 JENNIFER DOMINGUEZ PRIVATE M[employer]GAGE BANKER SAFE Ot 784.2 11/26/2014 ALEX GALVANANTONIETTA S ADULT PROBATION OFFICER Ot 202.80 11/26/2014 NATANAEL GALVAN S ADULT PROBATION OFFICER Ot 250.00 11/26/2014 NATANAEL GALVAN S ADULT PROBATION OFFICER Ot 272.4 11/26/2014 GALVANNATANAEL Marquez S ADULT PROBATION OFFICER Ot 356.9 11/26/2014 GALVAN, HILAH S ADULT PROBATION OFFICER Ot 401.9 11/26/2014 GALVANNATANAEL Marquez S ADULT PROBATION OFFICER Ot 564.00 11/26/2014 NATANAEL GALVAN S ADULT PROBATION OFFICER Ot 714.0 11/26/2014 MANDY NATANAEL Marquez ADULT PROBATION OFFICER Ot V44.3 11/26/2014 MANDY NATANAEL Alma ADULT PROBATION OFFICER Ot V45.85 11/26/2014 ALEX GALVANANTONIETTA Marquez ADULT PROBATION OFFICER Ot V58.69 12/12/2014 MONICA ROJAS MD Ot 202.80 OTH LYMPHOMAS EXTRANODAL SOLID ORGAN U 12/12/2014 MONICA ROJAS MD Ot 250.00 DIAB GER WO COMPL, TYPE II OR UNSPEC TY 12/12/2014 MONICA ROJAS MD Ot 272.4 HYPERLIPIDEMIA NEC/NOS 12/12/2014 MONICA ROJAS MD Ot 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 12/12/2014 MONICA ROJAS MD Ot 288.03 DRUG INDUCED NEUTROPENIA 12/12/2014 MONICA ROJAS MD Ot 401.9 HYPERTENSION NOS 12/12/2014 MONICA ROJAS MD Ot 714.0 RHEUMATOID ARTHRITIS 12/12/2014 MONICA ROJAS MD Ot 780.4 DIZZINESS AND GIDDINESS 12/12/2014 MONICA ROJAS MD Ot E849.0 ACCIDENT IN HOME 12/12/2014 MONICA ROJAS MD Ot E933.1 ADV EFF ANTINEOPLASTIC 12/12/2014 MONICA ROJAS MD Ot V45.85 INSULIN PUMP STATUS 12/12/2014 MONICA ROJAS MD Ot V58.11 ENCOUNTER FOR ANTINEOPLASTIC CHEMOTHERAP 12/12/2014 MONICA ROJAS MD Ot V58.67 LONG-TERM (CURRENT) USE OF INSULIN 12/12/2014 MONICA ROJAS MD Ot V58.69 OT MED,LT,CURRENT USE 02/11/2015 MONICA ROJAS MD Ot 202.80 02/11/2015 MONICA ROJAS MD Ot C85.80 03/04/2015 MONICA ROJAS MD Ot C85.80 03/04/2015 MONICA ROJAS MD Ot E11.9 03/04/2015 MONICA ROJAS MD Ot E78.5 03/04/2015 MONICA ROJAS MD Ot I10 03/04/2015 MONICA ROJAS MD Ot Z79.899 03/04/2015 MONICA ROJAS MD Ot Z93.3 03/04/2015 MONICA ROJAS MD Ot Z96.41 03/14/2015 MONICA ROJAS MD Ot C83.33 04/04/2015 MONICA ROJAS MD Ot C83.33 04/11/2015 CRYSTAL JURADO, MONICA Abdalla Ot 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, UNSPE 04/11/2015 CRYSTAL JURADO, MONICA Abdalla Ot E11.9 TYPE 2 DIABETES MELLITUS WITHOUT COMPLIC 04/11/2015 CRYSTAL JURADO, MONICA Abdalla Ot E78.5 HYPERLIPIDEMIA, UNSPECIFIED 04/11/2015 CRYSTAL JURADO, MONICA Abdalla Ot I10 ESSENTIAL (PRIMARY) HYPERTENSION 04/11/2015 CRYSTAL JURADO, MONICA Abdalla Ot Z79.899 OTHER DECKHAND CLAM DREDGE (CURRENT) DRUG THERAPY 04/11/2015 CRYSTAL JURADO, MONICA Abdalla Ot Z93.3 COLOSTOMY STATUS 04/11/2015 CRYSTAL JURADO, MONICA Abdalla Ot Z96.41 PRESENCE OF INSULIN PUMP (EXTERNAL) (INT 04/18/2015 CRYSTAL JURADO, MONICA Abdalla Ot C85.80 04/18/2015 CRYSTAL JURADO, MONICA Abdalla Ot E11.9 04/18/2015 CRYSTAL JURADO, MONICA Abdalla Ot E78.5 04/18/2015 CRYSTAL JURADO, MONICA Abdalla Ot I10 04/18/2015 CRYSTAL JURADO, MONICA Abdalla Ot Z79.899 04/18/2015 CRYSTAL JURADO, MONICA Abdalla Ot Z93.3 04/18/2015 CRYSTAL JURADO, MONICA Abdalla Ot Z96.41 04/18/2015 CRYSTAL JURADO, MONICA Abdalla Ot C83.33 05/03/2015 CRYSTAL JURADO, MONICA Abdalla Ot C85.80 05/03/2015 CRYSTAL JURADO, MONICA Abdalla Ot E11.9 05/03/2015 CRYSTAL JURADO, MONICA Abdalla Ot E78.5 05/03/2015 CRYSTAL JURADO, MONICA Abdalla Ot I10 05/03/2015 CRYSTAL JURADO, MONICA Abdalla Ot Z79.899 05/03/2015 CRYSTAL JURADO, MONICA Abdalla Ot Z93.3 05/03/2015 CRYSTAL JURADO, MONICA Abdalla Ot Z96.41 05/13/2015 CRYSTAL JURADO, MONICA Abdalla Ot C85.80 05/13/2015 CRYSTAL JURADO, MONICA Abdalla Ot E11.9 05/13/2015 CRYSTAL JURADO, MONICA Abdalla Ot E78.5 05/13/2015 CRYSTAL JURADO, MONICA Abdalla Ot I10 05/13/2015 CRYSTAL JURADO, MONCIA Abdalla Ot Z79.899 05/13/2015 CRYSTAL JURADO, MONICA Abdalla Ot Z93.3 05/13/2015 CRYSTAL JURADO, MONICA Abdalla Ot Z96.41 06/25/2015 CRYSTAL JURADO, MONICA Abdalla Ot C85.80 06/25/2015 CRYSTAL JURADO, MONICA Abdalla Ot E11.9 06/25/2015 CRYSTAL JURADO, MONICA Abdalla Ot E78.5 06/25/2015 CRYSTAL JURADO, MONICA Abdalla Ot I10 06/25/2015 CRYSTAL JURADO, MONICA Abdalla Ot Z79.899 06/25/2015 CRYSTAL JURADO, MONICA Abdalla Ot Z93.3 06/25/2015 CRYSTAL JURADO, MONICA Abdalla Ot Z96.41 06/27/2015 BARTOLO JURADO, NILO P Ot 388.70 06/27/2015 BARTOLO JURADO, NILO P Ot 723 .1 06/27/2015 BARTOLO JURADO, NILO P Ot 787.21 06/27/2015 DOLLY JURADO, KEREN A Ot 600.0 0 06/27/2015 DOLLY JURADO, KEREN A Ot V72.6 3 06/27/2015 DOLLY JURADO, KEREN A Ot V72.8 1 06/27/2015 DOLLY JURADO, KEREN A Ot V74.8 06/27/2015 JENNIFER DOMINGUEZ PRIVATE M[employer]GAGE BANKER SAFE Ot 784.2 06/27/2015 DOLLY JURADO, KEREN A Ot 789.0 9 06/27/2015 DOLLY JURADO, KEREN A Ot 789.0 0 06/27/2015 DOLLY JURADO, KEREN A Ot V81.5 06/27/2015 DEBORA JURADO, BRANDO Abdalla Ot 791 .9 06/27/2015 Ot 202.80 06/27/2015 Ot 792.1 06/27/2015 Ot 202.80 06/27/2015 Ot 792.1 06/27/2015 Ot 153.9 06/27/2015 Ot V72.83 06/27/2015 Ot V74.8 06/27/2015 Ot 195.3 06/27/2015 CRYSTAL JURADO, MONICA Abdalla Ot 200.80 06/27/2015 CRYSTAL JURADO, MONICA Abdalla Ot 200.70 06/27/2015 NATANAEL GALVAN ADULT PROBATION OFFICER Ot 202.80 06/27/2015 NATANAEL GALVAN ADULT PROBATION OFFICER Ot 250.00 06/27/2015 NATANAEL GALVAN ADULT PROBATION OFFICER Ot 272.4 06/27/2015 NATANAEL GALVAN ADULT PROBATION OFFICER Ot 356.9 06/27/2015 NATANAEL GALVAN ADULT PROBATION OFFICER Ot 401.9 06/27/2015 NATANAEL GALVAN ADULT PROBATION OFFICER Ot 564.00 06/27/2015 NATANAEL GALVAN ADULT PROBATION OFFICER Ot 714.0 06/27/2015 NATANAEL GALVAN ADULT PROBATION OFFICER Ot V44.3 06/27/2015 GALVANNATANAEL Marquez ADULT PROBATION OFFICER Ot V45.85 06/27/2015 NATANAEL GALVAN ADULT PROBATION OFFICER Ot V58.69 06/27/2015 CRYSTAL JURADO, MONICA Rm Ot C83.33 06/27/2015 CRYSTAL JURADO, MONICA K Ot C85.80 06/27/2015 CRYSTAL JURADO, MONICA K Ot E11.9 06/27/2015 CRYSTAL JURADO, MONICA K Ot E78.5 06/27/2015 CRYSTAL JURADO, MONICA K Ot I10 06/27/2015 CRYSTAL JURADO, MONICA K Ot Z79.899 06/27/2015 CRYSTAL JURADO, MONICA K Ot Z93.3 06/27/2015 CRYSTAL JURADO, MONICA K Ot Z96.41 06/27/2015 CRYSTAL JURADO, MONICA K Ot C83.33 06/28/2015 CRYSTAL JURADO, MONICA K Ot C83.33 07/02/2015 CRYSTAL JURADO, MONICA K Ot C83.33 07/03/2015 CRYSTAL JURADO, MONICA K Ot C83.33 07/09/2015 CRYSTAL JURADO, MONICA K Ot C85.80 07/09/2015 CRYSTAL JURADO, MONICA K Ot E11.9 07/09/2015 CRYSTAL JURADO, MONICA Rm Ot E78.5 07/09/2015 CRYSTAL JURADO, MONICA K Ot I10 07/09/2015 CRYSTAL JURADO, MONICA Abdalla Ot Z79.899 07/09/2015 CRYSTAL JURADO, MONICA Abdalla Ot Z93.3 07/09/2015 CRYSTAL JURADO, MONICA K Ot Z96.41 07/17/2015 NATALY JURADO, CAROLE Montoya Ot E11. 9 07/17/2015 NATALY JURADO, CAROLE Montoya Ot E78. 2 07/17/2015 NATALY JURADO, CAROLE Montoya Ot I34. 0 07/17/2015 NATALY JURADO, CAROLE Montoya Ot R07. 9 07/17/2015 NATALY JURADO, CAROLE Montoya Ot E11. 9 07/17/2015 NATALY JURADO, CAROLE Montoya Ot E78. 2 07/17/2015 NATALY JURADO, CAROLE Montoya Ot I34. 0 07/17/2015 NATALY JURADO, CAROLE Montoya Ot R07. 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 9 TYPE 2 DIABETES MELLITUS WITHOUT COMPLIC 08/07/2015 CAROLE INGRAM MD Ot E78. 2 MIXED HYPERLIPIDEMIA 08/07/2015 CAROLE INGRAM MD Ot I34. 0 NONRHEUMATIC MITRAL (VALVE) INSUFFICIENC 08/07/2015 CAROLE INGRAM MD Ot R07. 9 CHEST PAIN, UNSPECIFIED 08/07/2015 CAROLE INGRAM MD Ot E11. 9 TYPE 2 DIABETES MELLITUS WITHOUT COMPLIC 08/07/2015 CAROLE INGRAM MD Ot E78. 2 MIXED HYPERLIPIDEMIA 08/07/2015 CAROLE INGRAM MD Ot I34. 0 NONRHEUMATIC MITRAL (VALVE) INSUFFICIENC 08/07/2015 CAROLE INGRAM MD Ot R07. 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, INTRA-ABD 08/08/2015 MONICA ROJAS MD, Ot C85.80 OTJoesph TYPES OF NON-HODGKIN LYMPHOMA, UNSPE 08/08/2015 MONICA ROJAS MD, Ot E11.9 TYPE 2 DIABETES MELLITUS WITHOUT COMPLIC 08/08/2015 MONICA ROJAS MD, Ot E78.5 HYPERLIPIDEMIA, UNSPECIFIED 08/08/2015 MONICA ROJAS MD Ot I10 ESSENTIAL (PRIMARY) HYPERTENSION 08/08/2015 MONICA ROJAS MD, Ot Z79.899 OTHER LONG-TERM (CURRENT) DRUG THERAPY 08/08/2015 MONICA ROJAS MD, Ot Z93.3 COLOSTOMY STATUS 08/08/2015 MONICA ROJAS MD, Ot Z96.41 PRESENCE OF INSULIN PUMP (EXTERNAL) (INT 08/09/2015 MONICA ROJAS MD, Ot 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, UNSPE 08/09/2015 MONICA ROJAS MD Ot E11.9 TYPE 2 DIABETES MELLITUS WITHOUT COMPLIC 08/09/2015 MONICA ROJAS MD, Ot E78.5 HYPERLIPIDEMIA, UNSPECIFIED 08/09/2015 MONICA ROJAS MD Ot I10 ESSENTIAL (PRIMARY) HYPERTENSION 08/09/2015 MONICA ROJAS MD Ot Z79.899 OTHER DECKHAND CLAM DREDGE (CURRENT) DRUG THERAPY 08/09/2015 MONICA ROJAS MD Ot Z93.3 COLOSTOMY STATUS 08/09/2015 MONICA ROJAS MD Ot Z96.41 PRESENCE OF INSULIN PUMP (EXTERNAL) (INT 08/15/2015 MONICA ROJAS MD Ot 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, UNSPE 08/15/2015 MONICA ROJAS MD Ot E11.9 TYPE 2 DIABETES MELLITUS WITHOUT COMPLIC 08/15/2015 MONICA ROJAS MD Ot E78.5 HYPERLIPIDEMIA, UNSPECIFIED 08/15/2015 MONICA ROJAS MD Ot I10 ESSENTIAL (PRIMARY) HYPERTENSION 08/15/2015 MONICA ROJAS MD Ot Z79.899 OTHER LONG-TERM (CURRENT) DRUG THERAPY 08/15/2015 MONICA ROJAS MD [...] 08/16/2015 MONICA ROJAS MD Ot Z79.899 OTHER DECKHAND CLAM DREDGE (CURRENT) DRUG THERAPY 08/16/2015 MONICA ROJAS MD Ot Z93.3 COLOSTOMY STATUS 08/16/2015 MONICA ROJAS MD Ot Z96.41 PRESENCE OF INSULIN PUMP (EXTERNAL) (INT 08/19/2015 MONICA ROJAS MD Ot R10.31 RIGHT LOWER QUADRANT PAIN 08/26/2015 CAROLE INGRAM MD Ot E11. 9 TYPE 2 DIABETES MELLITUS WITHOUT COMPLIC 08/26/2015 CAROLE INGRAM MD Ot E78. 2 MIXED HYPERLIPIDEMIA 08/26/2015 CAROLE INGRAM MD Ot I34. 0 NONRHEUMATIC MITRAL (VALVE) INSUFFICIENC 08/26/2015 CAROLE INGRAM MD Ot R07. 9 CHEST PAIN, UNSPECIFIED 09/10/2015 MONICA ROJAS MD [...] 09/27/2015 MONICA ROJAS MD Ot Z79.899 OTHER LONG-TERM (CURRENT) DRUG THERAPY 09/27/2015 MONICA ROJAS MD Ot Z93.3 COLOSTOMY STATUS 09/27/2015 MONICA ROJAS MD Ot Z96.41 PRESENCE OF INSULIN PUMP (EXTERNAL) (INT 10/27/2015 Ot C85.90 NON -HODGKIN LYMPHOMA, UNSPECIFIED, UNSPE 10/27/2015 Ot M06.9 RHEU MATOID ARTHRITIS, UNSPECIFIED 10/27/2015 Ot R10.13 EPI GASTRIC PAIN 10/29/2015 Ot C85.90 NON -HODGKIN LYMPHOMA, UNSPECIFIED, UNSPE 10/29/2015 Ot M06.9 RHEU MATOID ARTHRITIS, UNSPECIFIED 10/29/2015 Ot R10.13 EPI GASTRIC PAIN 11/04/2015 MONICA ROJAS MD Ot 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, UNSPE 11/04/2015 MONICA ROJAS MD Ot E11.9 TYPE 2 DIABETES MELLITUS WITHOUT COMPLIC 11/04/2015 MONICA ROJAS MD Ot E78.5 HYPERLIPIDEMIA, UNSPECIFIED 11/04/2015 MONICA ROJAS MD Ot I10 ESSENTIAL (PRIMARY) HYPERTENSION 11/04/2015 MONICA ROJAS MD Ot Z79.899 OTHER DECKHAND CLAM DREDGE (CURRENT) DRUG THERAPY 11/04/2015 MONICA ROJAS MD [...] 11/13/2015 MONICA ROJAS MD Ot Z79.899 OTHER LONG-TERM (CURRENT) DRUG THERAPY 11/13/2015 MONICA ROJAS MD Ot Z93.3 COLOSTOMY STATUS 11/13/2015 MONICA ROJAS MD Ot Z96.41 PRESENCE OF INSULIN PUMP (EXTERNAL) (INT 11/27/2015 CRYSTAL JURADO, MONICA Abdalla Ot 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, UNSPECIFIED 12/02/2015 CRYSTAL JURADO, MONICA Abdalla Ot C83.00 SMALL [...] 12/05/2015 MONICA ROJAS MD Ot Z79.899 OTHER LONG-TERM (CURRENT) DRUG THERAPY 12/05/2015 MONICA ROJAS MD Ot Z93.3 COLOSTOMY STATUS 12/05/2015 MONICA ROJAS MD Ot Z96.41 PRESENCE OF INSULIN PUMP (EXTERNAL) (INT 12/13/2015 MONICA ROJAS MD Ot 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, UNSPE 12/13/2015 MONICA ROJAS MD Ot E11.9 TYPE 2 DIABETES MELLITUS WITHOUT COMPLIC 12/13/2015 MONICA ROJAS MD Ot E78.5 HYPERLIPIDEMIA, UNSPECIFIED 12/13/2015 MONICA ROJAS MD Ot I10 ESSENTIAL (PRIMARY) HYPERTENSION 12/13/2015 MONICA ROJAS MD Ot Z79.899 OTHER DECKHAND CLAM DREDGE (CURRENT) DRUG THERAPY 12/13/2015 MONICA ROJAS MD Ot Z93.3 COLOSTOMY STATUS 12/13/2015 MONICA ROJAS MD Ot Z96.41 PRESENCE OF INSULIN PUMP (EXTERNAL) (INT 12/20/2015 MONICA ROJAS MD Ot 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, UNSPECIFIED 01/06/2016 MONICA ROJAS MD Ot 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, UNSPECIFIED 01/13/2016 MONICA ROJAS MD Ot 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, UNSPE 01/13/2016 MONICA ROJAS MD Ot E11.9 TYPE 2 DIABETES MELLITUS WITHOUT COMPLIC 01/13/2016 MONICA ROJAS MD Ot E78.5 HYPERLIPIDEMIA, UNSPECIFIED 01/13/2016 MONICA ROJAS MD Ot I10 ESSENTIAL (PRIMARY) HYPERTENSION 01/13/2016 MONICA ROJAS MD Ot Z79.899 OTHER DECKHAND CLAM DREDGE (CURRENT) DRUG THERAPY 01/13/2016 MONICA ROJAS MD Ot Z93.3 COLOSTOMY STATUS 01/13/2016 MONICA ROJAS MD Ot Z96.41 PRESENCE OF INSULIN PUMP (EXTERNAL) (INT 01/16/2016 Ot C85.10 UNS PECIFIED B- CELL LYMPHOMA, UNSPECIFIED 01/21/2016 NILO MCFARLAND MD Ot 388.70 OTALGIA NOS 01/21/2016 NILO MCFARLAND MD Ot 723 .1 CERVICALGIA 01/21/2016 NILO MCFARLAND MD Ot 787.21 DYSPHAGIA, ORAL PHASE 01/21/2016 KEREN ALBERTO MD Ot 600.0 0 HYPERTROPHY (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 URI 01/21/2016 KEREN ALBERTO MD Ot V72.6 3 PRE-PROCEDURAL LABORATORY EXAMINATION 01/21/2016 KEREN ALBERTO MD Ot V72.8 1 [id number] CARDIOVASCULAR 01/21/2016 KEREN ALBERTO MD Ot V74.8 SCREEN-BACTERIAL DIS NEC 01/21/2016 JENNIFER DOMINGUEZ [employer]IVATE M[employer]GAGE BANKER SAFE Ot 784.2 SWELLING IN HEAD NECK 01/21/2016 KEREN ALBERTO MD Ot 789.0 9 ABDOMINAL PAIN, OTHER SPECIFIED SITE 01/21/2016 KEREN ALBERTO MD Ot 789.0 0 ABDOMINAL PAIN, UNSPECIFIED SITE 01/21/2016 KEREN ALBERTO MD Ot V81.5 SCREEN FOR NEPHROPATHY 01/21/2016 BRANDO CAZARES MD Ot 791 .9 ABN URINE FINDINGS NEC 01/21/2016 Ot 202.80 OTH LYMPHOMAS EXTRANODAL SOLID ORGAN U 01/21/2016 Ot 792.1 ABN FIND-STOOL CONTENTS 01/21/2016 Ot 202.80 OTH LYMPHOMAS EXTRANODAL SOLID ORGAN U 01/21/2016 Ot 792.1 ABN FIND-STOOL CONTENTS 01/21/2016 Ot 153.9 ANTWON GNANT GEOVANY COLON NOS 01/21/2016 Ot V72.83 EXA M PRE- OPERATIVE NEC 01/21/2016 Ot V74.8 SCRE EN-BACTERIAL DIS NEC 01/21/2016 Ot 195.3 ANTWON GN NEOPL PELVIS 01/21/2016 CRYSTAL JURADO, MONICA Abdalla Ot 200.80 OTHER VARIANTS, EXTRANODAL SOLID ORGAN 01/21/2016 CRYSTAL JURADO, MONICA Abdalla Ot 200.70 LARGE CELL LYMPHOMA, UNSP SITE, EXTRANOD 01/21/2016 NATANAEL GALVAN ADULT PROBATION OFFICER Ot 202.80 OTH LYMPHOMAS EXTRANODAL SOLID ORGAN U 01/21/2016 NATANAEL GALVAN ADULT PROBATION OFFICER Ot 250.00 DIAB GER WO COMPL, TYPE II OR UNSPEC TY 01/21/2016 NATANAEL GALVAN ADULT PROBATION OFFICER Ot 272.4 HYPERLIPIDEMIA NEC/NOS 01/21/2016 NATANAEL GALVAN ADULT PROBATION OFFICER Ot 356.9 IDIO PERIPH NEURPTHY NOS 01/21/2016 NATANAEL GALVAN ADULT PROBATION OFFICER Ot 401.9 HYPERTENSION NOS 01/21/2016 NATANAEL GALVAN ADULT PROBATION OFFICER Ot 564.00 UNSPEC CONSTIPATION 01/21/2016 NATANAEL GALVAN ADULT PROBATION OFFICER Ot 714.0 RHEUMATOID ARTHRITIS 01/21/2016 NATANAEL GALVAN ADULT PROBATION OFFICER Ot V44.3 COLOSTOMY STATUS 01/21/2016 NATANAEL GALVAN ADULT PROBATION OFFICER Ot V45.85 INSULIN PUMP STATUS 01/21/2016 NATANAEL GALVAN ADULT PROBATION OFFICER Ot V58.69 OTH MED,LT,CURRENT USE 01/21/2016 CRYSTAL JURADO, MONICA Abdalla Ot 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 9 TYPE 2 DIABETES MELLITUS WITHOUT COMPLIC 01/21/2016 CAROLE INGRAM MD Ot E78. 2 MIXED HYPERLIPIDEMIA 01/21/2016 CAROLE INGRAM MD Ot I34. 0 NONRHEUMATIC MITRAL (VALVE) INSUFFICIENC 01/21/2016 CAROLE INGRAM MD Ot R07. 9 CHEST PAIN, UNSPECIFIED 01/21/2016 CAROLE INGRAM MD Ot E11. 9 TYPE 2 DIABETES MELLITUS WITHOUT COMPLIC 01/21/2016 CAROLE INGRAM MD Ot E78. 2 MIXED HYPERLIPIDEMIA 01/21/2016 CAROLE INGRAM MD Ot I34. 0 NONRHEUMATIC MITRAL (VALVE) INSUFFICIENC 01/21/2016 CAROLE INGRAM MD Ot R07. 9 CHEST PAIN, UNSPECIFIED 01/21/2016 MONICA ROJAS MD Ot R10.31 RIGHT LOWER QUADRANT PAIN 01/21/2016 MONICA ROJAS MD Ot 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, UNSPECIFIED 01/21/2016 Ot C85.10 UNS PECIFIED B- CELL LYMPHOMA, UNSPECIFIED 01/21/2016 MONICA ROJAS MD Ot 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, UNSPE 01/21/2016 MONICA ROJAS MD Ot E11.9 TYPE 2 DIABETES MELLITUS WITHOUT COMPLIC 01/21/2016 MONICA ROJAS MD Ot E78.5 HYPERLIPIDEMIA, UNSPECIFIED 01/21/2016 MONICA ROJAS MD Ot I10 ESSENTIAL (PRIMARY) HYPERTENSION 01/21/2016 MONICA ROJAS MD Ot Z79.899 OTHER DECKHAND CLAM DREDGE (CURRENT) DRUG THERAPY 01/21/2016 MONICA ROJAS MD Ot Z93.3 COLOSTOMY STATUS 01/21/2016 MONICA ROJAS MD Ot Z96.41 PRESENCE OF INSULIN PUMP (EXTERNAL) (INT 01/22/2016 MIO RODRIGUEZ CUSTOMER MANAGEMENT SPECIALIST Ot C83.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, UNSPECIFI 01/22/2016 MIO RODRIGUEZ CUSTOMER MANAGEMENT SPECIALIST Ot C83.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, UNSPECIFI 01/24/2016 MONICA ROJAS MD Ot 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, UNSPE 01/24/2016 MONICA ROJAS MD Ot E11.9 TYPE 2 DIABETES MELLITUS WITHOUT COMPLIC 01/24/2016 MONICA ROJAS MD Ot E78.5 HYPERLIPIDEMIA, UNSPECIFIED 01/24/2016 MONICA ROJAS MD Ot I10 ESSENTIAL (PRIMARY) HYPERTENSION 01/24/2016 MONICA ROJAS MD Ot Z79.899 OTHER DECKHAND CLAM DREDGE (CURRENT) DRUG THERAPY 01/24/2016 MONICA ROJAS MD Ot Z93.3 COLOSTOMY STATUS 01/24/2016 MONICA ROJAS MD Ot Z96.41 PRESENCE OF INSULIN PUMP (EXTERNAL) (INT 02/21/2016 CAROLE INGRAM MD Ot E78. 2 MIXED HYPERLIPIDEMIA 02/21/2016 CAROLE INGRAM MD Ot R01. 1 CARDIAC MURMUR, UNSPECIFIED 02/21/2016 CAROLE INGRAM MD Ot R07. 9 CHEST PAIN, UNSPECIFIED 02/21/2016 CAROLE INGRAM MD Ot Z82. 49 FAMILY HX OF ISCHEM HEART DIS AND OTH DI 02/25/2016 MIO RODRIGUEZ APRN Ot C83.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, UNSPECIFI 03/02/2016 ITALIA BASS MD, Ot E11 .9 TYPE 2 DIABETES MELLITUS WITHOUT COMPLIC 03/02/2016 ITALIA BASS MD, Ot M54 .5 LOW BACK PAIN 03/02/2016 ITALIA BASS MD Ot Z79 .4 LONG-TERM (CURRENT) USE OF INSULIN 03/02/2016 ITALIA BASS MD Ot Z79.82 LONG-TERM (CURRENT) USE OF ASPIRIN 03/02/2016 ITALIA BASS MD, Ot Z79.899 OTHER LONG-TERM (CURRENT) DRUG THERAPY 03/02/2016 ITALIA BASS MD Ot Z85.72 PERSONAL HISTORY OF NON-HODGKIN LYMPHOMA 03/04/2016 MONICA ROJAS MD Ot 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, UNSPE 03/04/2016 MONICA ROJAS MD Ot E11.9 TYPE 2 DIABETES MELLITUS WITHOUT COMPLIC 03/04/2016 MONICA ROJAS MD Ot E78.5 HYPERLIPIDEMIA, UNSPECIFIED 03/04/2016 MONICA ROJAS MD Ot I10 ESSENTIAL (PRIMARY) HYPERTENSION 03/04/2016 MONICA ROJAS MD Ot Z79.899 OTHER LONG-TERM (CURRENT) DRUG THERAPY 03/04/2016 MONICA ROJAS MD Ot Z93.3 COLOSTOMY STATUS 03/04/2016 MONICA ROJAS MD Ot Z96.41 PRESENCE OF INSULIN PUMP (EXTERNAL) (INT 03/05/2016 ITALIA BASS MD Ot E11 .9 TYPE 2 DIABETES MELLITUS WITHOUT COMPLIC 03/05/2016 ITALIA BASS MD Ot M54 .5 LOW BACK PAIN 03/05/2016 ITALIA BASS MD Ot Z79 .4 LONG-TERM (CURRENT) USE OF INSULIN 03/05/2016 ITALIA BASS MD Ot Z79.82 LONG-TERM (CURRENT) USE OF ASPIRIN 03/05/2016 ITALIA BASS MD Ot Z79.899 OTHER LONG-TERM (CURRENT) DRUG THERAPY 03/05/2016 ITALIA BASS MD Ot Z85.72 PERSONAL HISTORY OF NON-HODGKIN LYMPHOMA 03/13/2016 CAROLE INGRAM MD Ot E78. 2 MIXED HYPERLIPIDEMIA 03/13/2016 CAROLE INGRAM MD Ot R01. 1 CARDIAC MURMUR, UNSPECIFIED 03/13/2016 CAROLE INGRAM MD Ot R07. 9 CHEST PAIN, UNSPECIFIED 03/13/2016 CAROLE INGRAM MD Ot Z82. 49 FAMILY HX OF ISCHEM HEART DIS AND OTH DI 03/13/2016 MIO RODRIGUEZ CUSTOMER MANAGEMENT SPECIALIST Ot C83.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, UNSPECIFI 03/19/2016 CAROLE INGRAM MD Ot E78. 2 MIXED HYPERLIPIDEMIA 03/19/2016 CAROLE INGRAM MD Ot R01. 1 CARDIAC MURMUR, UNSPECIFIED 03/19/2016 CAROLE INGRAM MD Ot R07. 9 CHEST PAIN, UNSPECIFIED 03/19/2016 CAROLE INGRAM MD Ot Z82. 49 FAMILY HX OF ISCHEM HEART DIS AND OTH DI 03/19/2016 CAROLE INGRAM MD Ot E78. 2 MIXED HYPERLIPIDEMIA 03/19/2016 CAROLE INGRAM MD Ot R01. 1 CARDIAC MURMUR, UNSPECIFIED 03/19/2016 CAROLE INGRAM MD Ot R07. 9 CHEST PAIN, UNSPECIFIED 03/19/2016 CAROLE INGRAM MD Ot Z82. 49 FAMILY HX OF ISCHEM HEART DIS AND OTH DI 03/24/2016 CAROLE INGRAM MD Ot E78. 2 MIXED HYPERLIPIDEMIA 03/24/2016 CAROLE INGRMA MD Ot R01. 1 CARDIAC MURMUR, UNSPECIFIED 03/24/2016 CAROLE INGRAM MD Ot R07. 9 CHEST PAIN, UNSPECIFIED 03/24/2016 CAROLE INGRAM MD Ot Z82. 49 FAMILY HX OF ISCHEM HEART DIS AND OTH DI 04/13/2016 CAROLE INGRAM MD Ot E78. 2 MIXED HYPERLIPIDEMIA 04/13/2016 CAROLE INGRAM MD Ot R01. 1 CARDIAC MURMUR, UNSPECIFIED 04/13/2016 CAROLE INGRAM MD Ot R07. 9 CHEST PAIN, UNSPECIFIED 04/13/2016 CAROLE INGRAM MD Ot Z82. 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, UNSPE 04/22/2016 MONICA ROJAS MD Ot E11.9 TYPE 2 DIABETES MELLITUS WITHOUT COMPLIC 04/22/2016 MONICA ROJAS MD Ot E78.5 HYPERLIPIDEMIA, UNSPECIFIED 04/22/2016 MONICA ROJAS MD Ot I10 ESSENTIAL (PRIMARY) HYPERTENSION 04/22/2016 MONICA ROJAS MD Ot Z79.899 OTHER LONG-TERM (CURRENT) DRUG THERAPY 04/22/2016 MONICA ROJAS MD Ot Z93.3 COLOSTOMY STATUS 04/22/2016 MONICA ROJAS MD Ot Z95.2 PRESENCE OF PROSTHETIC HEART VALVE 04/22/2016 MONICA ROJAS MD Ot Z96.41 PRESENCE OF INSULIN PUMP (EXTERNAL) (INT 04/23/2016 MONICA ROJAS MD Ot 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 2 MIXED HYPERLIPIDEMIA 04/27/2016 CAROLE INGRAM MD Ot R01. 1 CARDIAC MURMUR, UNSPECIFIED 04/27/2016 CAROLE INGRAM MD Ot R07. 9 CHEST PAIN, UNSPECIFIED 04/27/2016 CAROLE INGRAM MD Ot Z82. 49 FAMILY HX OF ISCHEM HEART DIS AND OTH DI 05/22/2016 MONICA ROJAS MD, Ot 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, UNSPE 05/22/2016 MONICA ROJAS MD Ot E11.9 TYPE 2 DIABETES MELLITUS WITHOUT COMPLIC 05/22/2016 MONICA ROJAS MD Ot E78.5 HYPERLIPIDEMIA, UNSPECIFIED 05/22/2016 MONICA ROJAS MD Ot I10 ESSENTIAL (PRIMARY) HYPERTENSION 05/22/2016 MONICA ROJAS MD Ot Z79.899 OTHER DECKHAND CLAM DREDGE (CURRENT) DRUG THERAPY 05/22/2016 MONICA ROJAS MD Ot Z93.3 COLOSTOMY STATUS 05/22/2016 MONICA RJOAS MD Ot Z96.41 PRESENCE OF INSULIN PUMP (EXTERNAL) (INT 06/06/2016 GLORIA CALERO MD Ot E11.649 TYPE 2 DIABETES MELLITUS WITH HYPOGLYCEM 06/06/2016 GLORIA CALERO MD Ot I10 ESSENTIAL (PRIMARY) HYPERTENSION 06/06/2016 GLORIA CALERO MD Ot Z79.82 LONG-TERM (CURRENT) USE OF ASPIRIN 06/06/2016 GLORIA CALREO MD Ot Z96.41 PRESENCE OF INSULIN PUMP (EXTERNAL) (INT 06/18/2016 Lindsay CRONIN MD Ot R31.9 HEMATURIA, UNSPECIFIED 06/18/2016 Lindsay CRONIN MD Ot R31.9 HEMATURIA, UNSPECIFIED 06/18/2016 Lindsay CRONIN MD Ot R31.2 1 ASYMPTOMATIC MICROSCOPIC HEMATURIA 06/18/2016 Lindsay CRONIN MD Ot Z12.5 ENCOUNTER FOR SCREENING FOR MALIGNANT NE 06/19/2016 Lindsay CRONIN MD Ot R31.2 1 ASYMPTOMATIC MICROSCOPIC HEMATURIA 06/19/2016 Lindsay CRONIN MD Ot Z12.5 ENCOUNTER FOR SCREENING FOR MALIGNANT NE 07/01/2016 MONICA ROJAS MD Ot 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, UNSPE 07/01/2016 MONICA ROJAS MD Ot E11.9 TYPE 2 DIABETES MELLITUS WITHOUT COMPLIC 07/01/2016 MONICA ROJAS MD Ot E78.5 HYPERLIPIDEMIA, UNSPECIFIED 07/01/2016 MONICA ROJAS MD Ot I10 ESSENTIAL (PRIMARY) HYPERTENSION 07/01/2016 MONICA ROJAS MD Ot Z79.899 OTHER LONG-TERM (CURRENT) DRUG THERAPY 07/01/2016 MONICA ROJAS MD Ot Z93.3 COLOSTOMY STATUS 07/01/2016 MONICA ROJAS MD Ot Z96.41 PRESENCE OF INSULIN PUMP (EXTERNAL) (INT 07/09/2016 MEHRDAD JURADO, Lindsay AYON Ot R31.2 1 ASYMPTOMATIC MICROSCOPIC HEMATURIA 07/09/2016 MEHRDAD JURADO, Lindsay AYON Ot Z12.5 ENCOUNTER FOR SCREENING FOR MALIGNANT NE 07/29/2016 MONICA ROJAS MD, Ot 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, INTRA-ABD 08/19/2016 MONICA ROJAS MD, Ot C85.80 OTJoesph TYPES OF NON-HODGKIN LYMPHOMA, UNSPE 08/19/2016 MONICA ROJAS MD Ot E11.9 TYPE 2 DIABETES MELLITUS WITHOUT COMPLIC 08/19/2016 MONICA ROJAS MD Ot E78.5 HYPERLIPIDEMIA, UNSPECIFIED 08/19/2016 MONICA ROJAS MD Ot I10 ESSENTIAL (PRIMARY) HYPERTENSION 08/19/2016 MONICA ROJAS MD Ot Z79.899 OTHER DECKHAND CLAM DREDGE (CURRENT) DRUG THERAPY 08/19/2016 MONICA ROJAS MD Ot Z93.3 COLOSTOMY STATUS 08/19/2016 MONICA ROJAS MD Ot Z96.41 PRESENCE OF INSULIN PUMP (EXTERNAL) (INT 08/19/2016 MONICA ROJAS MD, Ot 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, INTRA-ABD 08/20/2016 MONICA ROJAS MD Ot 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, UNSPE 08/20/2016 MONICA ROJAS MD Ot E11.9 TYPE 2 DIABETES MELLITUS WITHOUT COMPLIC 08/20/2016 MONICA ROJAS MD Ot E78.5 HYPERLIPIDEMIA, UNSPECIFIED 08/20/2016 MONICA ROJAS MD Ot I10 ESSENTIAL (PRIMARY) HYPERTENSION 08/20/2016 MONICA ROJAS MD Ot Z79.899 OTHER LONG-TERM (CURRENT) DRUG THERAPY 08/20/2016 MONICA ROJAS MD Ot Z93.3 COLOSTOMY STATUS 08/20/2016 MONICA ROJAS MD Ot Z96.41 PRESENCE OF INSULIN PUMP (EXTERNAL) (INT 08/21/2016 MONICA ROJAS MD, Ot 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, INTRA-ABD 08/21/2016 MONICA ROJAS MD, Ot 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, INTRA-ABD 09/02/2016 MONICA ROJAS MD Ot 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, UNSPE 09/02/2016 MONICA ROJAS MD Ot E11.9 TYPE 2 DIABETES MELLITUS WITHOUT COMPLIC 09/02/2016 MONICA ROJAS MD Ot E78.5 HYPERLIPIDEMIA, UNSPECIFIED 09/02/2016 MONICA ROJAS MD Ot I10 ESSENTIAL (PRIMARY) HYPERTENSION 09/02/2016 MONICA ROJAS MD Ot Z79.899 OTHER DECKHAND CLAM DREDGE (CURRENT) DRUG THERAPY 09/02/2016 MONICA ROJAS MD Ot Z93.3 COLOSTOMY STATUS 09/02/2016 MONICA ROJAS MD Ot Z96.41 PRESENCE OF INSULIN PUMP (EXTERNAL) (INT 09/04/2016 MONICA ROJAS MD, Ot 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, INTRA-ABD 09/24/2016 MONICA ROJAS MD Ot 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, UNSPE 09/24/2016 MONICA ROJAS MD, Ot E11.9 TYPE 2 DIABETES MELLITUS WITHOUT COMPLIC 09/24/2016 MONICA ROJAS MD Ot E78.5 HYPERLIPIDEMIA, UNSPECIFIED 09/24/2016 MONICA ROJAS MD Ot I10 ESSENTIAL (PRIMARY) HYPERTENSION 09/24/2016 MONICA ROJAS MD Ot Z79.899 OTHER DECKHAND CLAM DREDGE (CURRENT) DRUG THERAPY 09/24/2016 MONICA ROJAS MD [...] 11/30/2016 MONICA ROJAS MD Ot Z79.899 OTHER DECKHAND CLAM DREDGE (CURRENT) DRUG THERAPY 11/30/2016 CRYSTAL JURADO, MONICA Abdalla Ot Z93.3 COLOSTOMY STATUS 11/30/2016 CRYSTAL JURADO, MONICA Abdalla Ot Z96.41 PRESENCE OF INSULIN PUMP (EXTERNAL) (INT 03/24/2017 Werner Davis W 786.59 OTHER CHEST PAIN 03/24/2017 Werner Davis W R07.81 PLEURODYNIA 03/24/2017 Davis Caldera W 602.1 CONGESTION OR HEMORRHAGE OF PROSTATE 03/24/2017 Davis Caldera W 786.59 OTHER CHEST PAIN 03/24/2017 Werner Davis W N42.1 CONGESTION AND HEMORRHAGE OF PROSTATE 03/24/2017 Werner Davis W R07.81 PLEURODYNIA 03/24/2017 W 602.1 URI ESTION OR HEMORRHAGE OF PROSTATE 03/24/2017 W 786.59 OT ER CHEST PAIN 03/24/2017 W N42.1 URI ESTION AND HEMORRHAGE OF PROSTATE 03/24/2017 W R07.81 PLE URODYNIA 03/24/2017 Davis Caldera W 602.1 CONGESTION OR HEMORRHAGE OF PROSTATE 03/24/2017 Werner Davis W 786.59 OTHER CHEST PAIN 03/24/2017 Werner Davis W N42.1 CONGESTION AND HEMORRHAGE OF PROSTATE 03/24/2017 Werner Davis W R07.81 PLEURODYNIA 04/12/2017 Davis Caldera W 466.0 ACUTE BRONCHITIS 04/12/2017 Davis Caldera J20.9 ACUTE BRONCHITIS, UNSPECIFIED 04/12/2017 W 276.69 OT ER FLUID OVERLOAD 04/12/2017 W 466.0 ACUT E BRONCHITIS 04/12/2017 W 486 PNEUMO ALMAZ, ORGANISM UNSPECIFIED 04/12/2017 W E87.70 FLU ID OVERLOAD, UNSPECIFIED 04/12/2017 W J18.9 PNEU MONIA, UNSPECIFIED ORGANISM 04/12/2017 W J20.9 ACUT E BRONCHITIS, UNSPECIFIED 04/12/2017 Davis Caldera W 466.0 ACUTE BRONCHITIS 04/12/2017 Davis Caldera J20.9 ACUTE BRONCHITIS, UNSPECIFIED 04/13/2017 Davis Caldera W 276.69 OTHER FLUID OVERLOAD 04/13/2017 Davis Caldera W E87.70 FLUID OVERLOAD, UNSPECIFIED 04/13/2017 Davis Caldera W 276.69 OTHER FLUID OVERLOAD 04/13/2017 Davis Caldera W E87.70 FLUID OVERLOAD, UNSPECIFIED 07/14/2017 BARTOLO JURADO, NILO Fernandez Ot 388.70 OTALGIA NOS 07/14/2017 BARTOLO JURADO, NILO Fernandez Ot 723 .1 CERVICALGIA 07/14/2017 NILO MCFARLAND MD Ot 787.21 DYSPHAGIA, ORAL PHASE 07/14/2017 KEREN ALBERTO MD Ot 600.0 0 HYPERTROPHY (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 URI 07/14/2017 KEREN ALBERTO MD Ot V72.6 3 PRE-PROCEDURAL LABORATORY EXAMINATION 07/14/2017 KEREN ALBERTO MD Ot V72.8 1 NFNL-JZM-[id number] CARDIOVASCULAR 07/14/2017 KEREN ALBERTO MD Ot V74.8 SCREEN-BACTERIAL DIS NEC 07/14/2017 JENNIFER DOMINGUEZ [employer]IVATE [employer] B[employer]ER SAFE Ot 784.2 SWELLING IN HEAD NECK 07/14/2017 KEREN ALBERTO MD Ot 789.0 9 ABDOMINAL PAIN, OTHER SPECIFIED SITE 07/14/2017 KEREN ALBERTO MD Ot 789.0 0 ABDOMINAL PAIN, UNSPECIFIED SITE 07/14/2017 KEREN ALBERTO MD Ot V81.5 SCREEN FOR NEPHROPATHY 07/14/2017 DEBORA JURADO, BRANDO Abdalla Ot 791 .9 ABN URINE FINDINGS NEC 07/14/2017 Ot 202.80 OTH LYMPHOMAS EXTRANODAL SOLID ORGAN U 07/14/2017 Ot 792.1 ABN FIND-STOOL CONTENTS 07/14/2017 Ot 202.80 OTH LYMPHOMAS EXTRANODAL SOLID ORGAN U 07/14/2017 Ot 792.1 ABN FIND-STOOL CONTENTS 07/14/2017 Ot 153.9 ANTWON GNANT GEOVANY COLON NOS 07/14/2017 Ot V72.83 EXA M PRE- OPERATIVE NEC 07/14/2017 Ot V74.8 SCRE EN-BACTERIAL DIS NEC 07/14/2017 Ot 195.3 ANTWON GN NEOPL PELVIS 07/14/2017 CRYSTAL JURADO, MONICA Abdalla Ot 200.80 OTHER VARIANTS, EXTRANODAL SOLID ORGAN 07/14/2017 CRYSTAL JURADO, MONICA Abdalla Ot 200.70 LARGE CELL LYMPHOMA, UNSP SITE, EXTRANOD 07/14/2017 NATANAEL GALVAN ADULT PROBATION OFFICER Ot 202.80 OTH LYMPHOMAS EXTRANODAL SOLID ORGAN U 07/14/2017 NATANAEL GALVAN ADULT PROBATION OFFICER Ot 250.00 DIAB GER WO COMPL, TYPE II OR UNSPEC TY 07/14/2017 NATANAEL GALVAN ADULT PROBATION OFFICER Ot 272.4 HYPERLIPIDEMIA NEC/NOS 07/14/2017 NATANAEL GALVAN ADULT PROBATION OFFICER Ot 356.9 IDIO PERIPH NEURPTHY NOS 07/14/2017 NATANAEL GALVAN ADULT PROBATION OFFICER Ot 401.9 HYPERTENSION NOS 07/14/2017 NATANAEL GALVAN ADULT PROBATION OFFICER Ot 564.00 UNSPEC CONSTIPATION 07/14/2017 NATANAEL GALVAN ADULT PROBATION OFFICER Ot 714.0 RHEUMATOID ARTHRITIS 07/14/2017 NATANAEL GALVAN ADULT PROBATION OFFICER Ot V44.3 COLOSTOMY STATUS 07/14/2017 NATANAEL GALVAN ADULT PROBATION OFFICER Ot V45.85 INSULIN PUMP STATUS 07/14/2017 NATANAEL GALVAN ADULT PROBATION OFFICER Ot V58.69 OT MED,LT,CURRENT USE 07/14/2017 CRYSTAL JURADO, MONICA Abdalla Ot 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 9 TYPE 2 DIABETES MELLITUS WITHOUT COMPLIC 07/14/2017 CAROLE INGRAM MD Ot E78. 2 MIXED HYPERLIPIDEMIA 07/14/2017 CAROLE INGRAM MD Ot I34. 0 NONRHEUMATIC MITRAL (VALVE) INSUFFICIENC 07/14/2017 CAROLE INGRAM MD Ot R07. 9 CHEST PAIN, UNSPECIFIED 07/14/2017 CAROLE INGRAM MD Ot E11. 9 TYPE 2 DIABETES MELLITUS WITHOUT COMPLIC 07/14/2017 CAROLE INGRAM MD Ot E78. 2 MIXED HYPERLIPIDEMIA 07/14/2017 CAROLE INGRAM MD Ot I34. 0 NONRHEUMATIC MITRAL (VALVE) INSUFFICIENC 07/14/2017 CAROLE INGRAM MD Ot R07. 9 CHEST PAIN, UNSPECIFIED 07/14/2017 CRYSTAL JURADO, MONICA Abdalla Ot R10.31 RIGHT LOWER QUADRANT PAIN 07/14/2017 MONICA ROJAS MD Ot 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, UNSPECIFIED 07/14/2017 Ot C85.10 UNS PECIFIED B- CELL LYMPHOMA, UNSPECIFIED 07/14/2017 MIO RODRIGUEZ CUSTOMER MANAGEMENT SPECIALIST Ot C83.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, UNSPECIFI 07/14/2017 CAROLE INGRAM MD Ot E78. 2 MIXED HYPERLIPIDEMIA 07/14/2017 CAROLE INGRAM MD Ot R01. 1 CARDIAC MURMUR, UNSPECIFIED 07/14/2017 CAROLE INGRAM MD Ot R07. 9 CHEST PAIN, UNSPECIFIED 07/14/2017 CAROLE INGRAM MD Ot Z82. 49 FAMILY HX OF ISCHEM HEART DIS AND OTH DI 07/14/2017 CAROLE INGRAM MD Ot E78. 2 MIXED HYPERLIPIDEMIA 07/14/2017 CAROLE INGRAM MD Ot R01. 1 CARDIAC MURMUR, UNSPECIFIED 07/14/2017 CAROLE INGRAM MD Ot R07. 9 CHEST PAIN, UNSPECIFIED 07/14/2017 CAROLE INGRAM MD Ot Z82. 49 FAMILY HX OF ISCHEM HEART DIS AND OTH DI 07/14/2017 MEHRDAD JURADO, Lindsay AYON Ot R31.2 1 ASYMPTOMATIC MICROSCOPIC HEMATURIA 07/14/2017 Lindsay CRONIN MD Ot Z12.5 ENCOUNTER FOR SCREENING FOR MALIGNANT NE 07/14/2017 MONICA ROJAS MD Ot 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, INTRA-ABD 07/14/2017 MONCIA ROJAS MD Ot C85.80 OT TYPES OF NON-HODGKIN LYMPHOMA, UNSPE 07/14/2017 MONICA ROJAS MD Ot E11.9 TYPE 2 DIABETES MELLITUS WITHOUT COMPLIC 07/14/2017 MONICA ROJAS MD Ot E78.5 HYPERLIPIDEMIA, UNSPECIFIED 07/14/2017 MONICA ROJAS MD Ot I10 ESSENTIAL (PRIMARY) HYPERTENSION 07/14/2017 MONICA ROJAS MD Ot Z79.899 OTHER LONG-TERM (CURRENT) DRUG THERAPY 07/14/2017 MOINCA ROJAS MD Ot Z93.3 COLOSTOMY STATUS 07/14/2017 MONICA ROJAS MD Ot Z96.41 PRESENCE OF INSULIN PUMP (EXTERNAL) (INT 07/14/2017 BARTOLO JURADO, NILO Fernandez Ot 388.70 OTALGIA NOS 07/14/2017 NILO MCFARLAND MD Ot 723 .1 CERVICALGIA 07/14/2017 BARTOLO JURADO, NILO Fernandez Ot 787.21 DYSPHAGIA, ORAL PHASE 07/14/2017 KEREN ALBERTO MD Ot 600.0 0 HYPERTROPHY (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 URI 07/14/2017 KEREN ALBERTO MD Ot V72.6 3 PRE-PROCEDURAL LABORATORY EXAMINATION 07/14/2017 KEREN ALBERTO MD Ot V72.8 1 PSGQ-BJP-DIIPXTTHM CARDIOVASCULAR 07/14/2017 KEREN ALBERTO MD Ot V74.8 SCREEN-BACTERIAL DIS NEC 07/14/2017 JENNIFER DOMINGUEZ [employer] B[employer]ER SAFE Ot 784.2 SWELLING IN HEAD NECK 07/14/2017 KEREN ALBERTO MD Ot 789.0 9 ABDOMINAL PAIN, OTHER SPECIFIED SITE 07/14/2017 KEREN ALBERTO MD Ot 789.0 0 ABDOMINAL PAIN, UNSPECIFIED SITE 07/14/2017 KEREN ALBERTO MD Ot V81.5 SCREEN FOR NEPHROPATHY 07/14/2017 BRANDO CAZARES MD Ot 791 .9 ABN URINE FINDINGS NEC 07/14/2017 Ot 202.80 OTH LYMPHOMAS EXTRANODAL SOLID ORGAN U 07/14/2017 Ot 792.1 ABN FIND-STOOL CONTENTS 07/14/2017 Ot 202.80 OTH LYMPHOMAS EXTRANODAL SOLID ORGAN U 07/14/2017 Ot 792.1 ABN FIND-STOOL CONTENTS 07/14/2017 Ot 153.9 ANTWON GNANT GEOVNAY COLON NOS 07/14/2017 Ot V72.83 EXA M PRE- OPERATIVE NEC 07/14/2017 Ot V74.8 SCRE EN-BACTERIAL DIS NEC 07/14/2017 Ot 195.3 ANTWON GN NEOPL PELVIS 07/14/2017 CRYSTAL JURADO, MONICA Abdalla Ot 200.80 OTHER VARIANTS, EXTRANODAL SOLID ORGAN 07/14/2017 CRYSTAL JURADO, MONICA Abdalla Ot 200.70 LARGE CELL LYMPHOMA, UNSP SITE, EXTRANOD 07/14/2017 NATANAEL GALVAN ADULT PROBATION OFFICER Ot 202.80 OTH LYMPHOMAS EXTRANODAL SOLID ORGAN U 07/14/2017 NATANAEL GALVAN ADULT PROBATION OFFICER Ot 250.00 DIAB GER WO COMPL, TYPE II OR UNSPEC TY 07/14/2017 NATANAEL GALVAN ADULT PROBATION OFFICER Ot 272.4 HYPERLIPIDEMIA NEC/NOS 07/14/2017 NTAANAEL GALVAN ADULT PROBATION OFFICER Ot 356.9 IDIO PERIPH NEURPTHY NOS 07/14/2017 NATANAEL GALVAN ADULT PROBATION OFFICER Ot 401.9 HYPERTENSION NOS 07/14/2017 NATANAEL GALVAN ADULT PROBATION OFFICER Ot 564.00 UNSPEC CONSTIPATION 07/14/2017 NATANAEL GALVAN ADULT PROBATION OFFICER Ot 714.0 RHEUMATOID ARTHRITIS 07/14/2017 NATANAEL GALVAN ADULT PROBATION OFFICER Ot V44.3 COLOSTOMY STATUS 07/14/2017 NATANAEL GALVAN ADULT PROBATION OFFICER Ot V45.85 INSULIN PUMP STATUS 07/14/2017 NATANAEL GALVAN ADULT PROBATION OFFICER Ot V58.69 OT MED,LT,CURRENT USE 07/14/2017 MONICA ROJAS MD Ot 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 9 TYPE 2 DIABETES MELLITUS WITHOUT COMPLIC 07/14/2017 CAROLE INGRAM MD Ot E78. 2 MIXED HYPERLIPIDEMIA 07/14/2017 CAROLE INGRAM MD Ot I34. 0 NONRHEUMATIC MITRAL (VALVE) INSUFFICIENC 07/14/2017 CAROLE INGRAM MD Ot R07. 9 CHEST PAIN, UNSPECIFIED 07/14/2017 CAROLE INGRAM MD Ot E11. 9 TYPE 2 DIABETES MELLITUS WITHOUT COMPLIC 07/14/2017 CAROLE INGRAM MD Ot E78. 2 MIXED HYPERLIPIDEMIA 07/14/2017 CAROLE INGRAM MD Ot I34. 0 NONRHEUMATIC MITRAL (VALVE) INSUFFICIENC 07/14/2017 CAROLE INGRAM MD Ot R07. 9 CHEST PAIN, UNSPECIFIED 07/14/2017 MONICA ROJAS MD Ot R10.31 RIGHT LOWER QUADRANT PAIN 07/14/2017 MONICA ROJAS MD Ot 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, UNSPECIFIED 07/14/2017 Ot C85.10 UNS PECIFIED B- CELL LYMPHOMA, UNSPECIFIED 07/14/2017 MIO RODRIGUEZ CUSTOMER MANAGEMENT SPECIALIST Ot C83.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, UNSPECIFI 07/14/2017 CAROLE INGRAM MD Ot E78. 2 MIXED HYPERLIPIDEMIA 07/14/2017 CAROLE INGRAM MD Ot R01. 1 CARDIAC MURMUR, UNSPECIFIED 07/14/2017 CAROLE INGRAM MD Ot R07. 9 CHEST PAIN, UNSPECIFIED 07/14/2017 CAROLE INGRAM MD Ot Z82. 49 FAMILY HX OF ISCHEM HEART DIS AND OTH DI 07/14/2017 CAROLE INGRAM MD Ot E78. 2 MIXED HYPERLIPIDEMIA 07/14/2017 CAROLE INGRAM MD Ot R01. 1 CARDIAC MURMUR, UNSPECIFIED 07/14/2017 CAROLE INGRAM MD Ot R07. 9 CHEST PAIN, UNSPECIFIED 07/14/2017 CAROLE INGRAM MD Ot Z82. 49 FAMILY HX OF ISCHEM HEART DIS AND OTH DI 07/14/2017 Lindsay CRONIN MD Ot R31.2 1 ASYMPTOMATIC MICROSCOPIC HEMATURIA 07/14/2017 Lindsay CRONIN MD [...] 07/14/2017 MONICA ROJAS MD Ot Z79.899 OTHER LONG-TERM (CURRENT) DRUG THERAPY 07/14/2017 MONICA ROJAS MD Ot Z93.3 COLOSTOMY STATUS 07/14/2017 MONICA ROJAS MD Ot Z96.41 PRESENCE OF INSULIN PUMP (EXTERNAL) (INT 07/14/2017 NILO MCFARLAND MD Ot 388.70 OTALGIA NOS 07/14/2017 NILO MCFARLAND MD Ot 723 .1 CERVICALGIA 07/14/2017 NILO MCFARLAND MD Ot 787.21 DYSPHAGIA, ORAL PHASE 07/14/2017 DOLLYKEREN Watkins MD Ot 600.0 0 HYPERTROPHY (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 URI 07/14/2017 KEREN ALBERTO MD Ot V72.6 3 PRE-PROCEDURAL LABORATORY EXAMINATION 07/14/2017 KEREN ALBERTO MD Ot V72.8 1 YEIG-SSO-PXHNMWXVA CARDIOVASCULAR 07/14/2017 KEREN ALBERTO MD Ot V74.8 SCREEN-BACTERIAL DIS NEC 07/14/2017 JENNIFER DOMINGUEZ [employer] SAFE Ot 784.2 SWELLING IN HEAD NECK 07/14/2017 KEREN ALBERTO MD Ot 789.0 9 ABDOMINAL PAIN, OTHER SPECIFIED SITE 07/14/2017 KEREN ALBERTO MD Ot 789.0 0 ABDOMINAL PAIN, UNSPECIFIED SITE 07/14/2017 KEREN ALBERTO MD Ot V81.5 SCREEN FOR NEPHROPATHY 07/14/2017 BRANDO CAZARES MD Ot 791 .9 ABN URINE FINDINGS NEC 07/14/2017 Ot 202.80 OTH LYMPHOMAS EXTRANODAL SOLID ORGAN U 07/14/2017 Ot 792.1 ABN FIND-STOOL CONTENTS 07/14/2017 Ot 202.80 OTH LYMPHOMAS EXTRANODAL SOLID ORGAN U 07/14/2017 Ot 792.1 ABN FIND-STOOL CONTENTS 07/14/2017 Ot 153.9 ANTWON GNANT GEOVANY COLON NOS 07/14/2017 Ot V72.83 EXA M PRE- OPERATIVE NEC 07/14/2017 Ot V74.8 SCRE EN-BACTERIAL DIS NEC 07/14/2017 Ot 195.3 ANTWON GN NEOPL PELVIS 07/14/2017 CRYSTAL JURADO, MONICA Abdalla Ot 200.80 OTHER VARIANTS, EXTRANODAL SOLID ORGAN 07/14/2017 CRYSTAL JURADO, MONICA Abdalla Ot 200.70 LARGE CELL LYMPHOMA, UNSP SITE, EXTRANOD 07/14/2017 NATANAEL GALVAN ADULT PROBATION OFFICER Ot 202.80 OTH LYMPHOMAS EXTRANODAL SOLID ORGAN U 07/14/2017 NATANAEL GALVAN ADULT PROBATION OFFICER Ot 250.00 DIAB GER WO COMPL, TYPE II OR UNSPEC TY 07/14/2017 NATANAEL GALVAN ADULT PROBATION OFFICER Ot 272.4 HYPERLIPIDEMIA NEC/NOS 07/14/2017 NATANAEL GALVAN ADULT PROBATION OFFICER Ot 356.9 IDIO PERIPH NEURPTHY NOS 07/14/2017 NATANAEL GALVAN ADULT PROBATION OFFICER Ot 401.9 HYPERTENSION NOS 07/14/2017 NATANAEL GALVAN ADULT PROBATION OFFICER Ot 564.00 UNSPEC CONSTIPATION 07/14/2017 NATANAEL GALVAN ADULT PROBATION OFFICER Ot 714.0 RHEUMATOID ARTHRITIS 07/14/2017 NATANAEL GALVAN ADULT PROBATION OFFICER Ot V44.3 COLOSTOMY STATUS 07/14/2017 NATANAEL GALVAN ADULT PROBATION OFFICER Ot V45.85 INSULIN PUMP STATUS 07/14/2017 NATANAEL GALVAN ADULT PROBATION OFFICER Ot V58.69 OT MED,LT,CURRENT USE 07/14/2017 CRYSTAL JURADO, MONICA Abdalla Ot 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, INTRA-ABD 07/14/2017 MONICA ROJAS MD, Ot 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, INTRA-ABD 07/14/2017 MONICA ROJAS MD, Ot 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, INTRA-ABD 07/14/2017 MONICA ROJAS MD, Ot 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 9 TYPE 2 DIABETES MELLITUS WITHOUT COMPLIC 07/14/2017 CAROLE INGRAM MD Ot E78. 2 MIXED HYPERLIPIDEMIA 07/14/2017 CAROLE INGRAM MD Ot I34. 0 NONRHEUMATIC MITRAL (VALVE) INSUFFICIENC 07/14/2017 CAROLE INGRAM MD Ot R07. 9 CHEST PAIN, UNSPECIFIED 07/14/2017 CAROLE INGRAM MD Ot E11. 9 TYPE 2 DIABETES MELLITUS WITHOUT COMPLIC 07/14/2017 CAROLE INGRAM MD Ot E78. 2 MIXED HYPERLIPIDEMIA 07/14/2017 CAROLE INGRAM MD Ot I34. 0 NONRHEUMATIC MITRAL (VALVE) INSUFFICIENC 07/14/2017 CAROLE INGRAM MD Ot R07. 9 CHEST PAIN, UNSPECIFIED 07/14/2017 MONICA ROJAS MD Ot R10.31 RIGHT LOWER QUADRANT PAIN 07/14/2017 MONICA ROJAS MD Ot 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, UNSPECIFIED 07/14/2017 Ot C85.10 UNS PECIFIED B- CELL LYMPHOMA, UNSPECIFIED 07/14/2017 MIO RODRIGUEZ CUSTOMER MANAGEMENT SPECIALIST Ot C83.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, UNSPECIFI 07/14/2017 CAROLE INGRAM MD Ot E78. 2 MIXED HYPERLIPIDEMIA 07/14/2017 CAROLE INGRAM MD Ot R01. 1 CARDIAC MURMUR, UNSPECIFIED 07/14/2017 CAROLE INGRAM MD Ot R07. 9 CHEST PAIN, UNSPECIFIED 07/14/2017 CAROLE INGRAM MD Ot Z82. 49 FAMILY HX OF ISCHEM HEART DIS AND OTH DI 07/14/2017 CAROLE INGRAM MD Ot E78. 2 MIXED HYPERLIPIDEMIA 07/14/2017 CAROLE INGRAM MD Ot R01. 1 CARDIAC MURMUR, UNSPECIFIED 07/14/2017 CAROLE INGRAM MD Ot R07. 9 CHEST PAIN, UNSPECIFIED 07/14/2017 CAROLE INGRAM MD Ot Z82. 49 FAMILY HX OF ISCHEM HEART DIS AND OTH DI 07/14/2017 MEHRDAD JURADO, Lindsya AYON Ot R31.2 1 ASYMPTOMATIC MICROSCOPIC HEMATURIA 07/14/2017 Lindsay CRONIN MD [...] 07/14/2017 MONICA ROJAS MD Ot Z79.899 OTHER DECKHAND CLAM DREDGE (CURRENT) DRUG THERAPY 07/14/2017 MONICA ROJAS MD Ot Z93.3 COLOSTOMY STATUS 07/14/2017 MONICA ROJAS MD Ot Z96.41 PRESENCE OF INSULIN PUMP (EXTERNAL) (INT 07/14/2017 NILO MCFARLAND MD Ot 388.70 OTALGIA NOS 07/14/2017 NILO MCFARLAND MD Ot 723 .1 CERVICALGIA 07/14/2017 NILO MCFARLAND MD Ot 787.21 DYSPHAGIA, ORAL PHASE 07/14/2017 KEREN ALBERTO MD Ot 600.0 0 HYPERTROPHY (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 URI 07/14/2017 KEREN ALBERTO MD Ot V72.6 3 PRE-PROCEDURAL LABORATORY EXAMINATION 07/14/2017 KEREN ALBERTO MD Ot V72.8 1 TUFF-BRB-QGBJDOMEW CARDIOVASCULAR 07/14/2017 KEREN ALBERTO MD Ot V74.8 SCREEN-BACTERIAL DIS NEC 07/14/2017 JENNIFER DOMINGUEZ PRIVATE M[employer]GAGE BANKER SAFE Ot 784.2 SWELLING IN HEAD NECK 07/14/2017 KEREN ALBERTO MD Ot 789.0 9 ABDOMINAL PAIN, OTHER SPECIFIED SITE 07/14/2017 KEREN ALBERTO MD Ot 789.0 0 ABDOMINAL PAIN, UNSPECIFIED SITE 07/14/2017 KEREN ALBERTO MD Ot V81.5 SCREEN FOR NEPHROPATHY 07/14/2017 DEBORA JURADO, BRANDO Abdalla Ot 791 .9 ABN URINE FINDINGS NEC 07/14/2017 Ot 202.80 OTH LYMPHOMAS EXTRANODAL SOLID ORGAN U 07/14/2017 Ot 792.1 ABN FIND-STOOL CONTENTS 07/14/2017 Ot 202.80 OTH LYMPHOMAS EXTRANODAL SOLID ORGAN U 07/14/2017 Ot 792.1 ABN FIND-STOOL CONTENTS 07/14/2017 Ot 153.9 ANTWON GNANT GEOVANY COLON NOS 07/14/2017 Ot V72.83 EXA M PRE- OPERATIVE NEC 07/14/2017 Ot V74.8 SCRE EN-BACTERIAL DIS NEC 07/14/2017 Ot 195.3 ANTWON GN NEOPL PELVIS 07/14/2017 CRYSTAL JURADO, MONICA Abdalla Ot 200.80 OTHER VARIANTS, EXTRANODAL SOLID ORGAN 07/14/2017 CRYSTAL JURADO, MONICA Abdalla Ot 200.70 LARGE CELL LYMPHOMA, UNSP SITE, EXTRANOD 07/14/2017 NATANAEL GALVAN ADULT PROBATION OFFICER Ot 202.80 OTH LYMPHOMAS EXTRANODAL SOLID ORGAN U 07/14/2017 NATANAEL GALVAN ADULT PROBATION OFFICER Ot 250.00 DIAB GER WO COMPL, TYPE II OR UNSPEC TY 07/14/2017 NATANAEL GALVAN ADULT PROBATION OFFICER Ot 272.4 HYPERLIPIDEMIA NEC/NOS 07/14/2017 NATANAEL GALVAN ADULT PROBATION OFFICER Ot 356.9 IDIO PERIPH NEURPTHY NOS 07/14/2017 NATANAEL GALVAN ADULT PROBATION OFFICER Ot 401.9 HYPERTENSION NOS 07/14/2017 NATANAEL GALVAN ADULT PROBATION OFFICER Ot 564.00 UNSPEC CONSTIPATION 07/14/2017 NATANAEL GALVAN ADULT PROBATION OFFICER Ot 714.0 RHEUMATOID ARTHRITIS 07/14/2017 NATANAEL GALVAN ADULT PROBATION OFFICER Ot V44.3 COLOSTOMY STATUS 07/14/2017 NATANAEL GALVAN ADULT PROBATION OFFICER Ot V45.85 INSULIN PUMP STATUS 07/14/2017 NATANAEL GALVAN ADULT PROBATION OFFICER Ot V58.69 OT MED,LT,CURRENT USE 07/14/2017 CRYSTAL JURADO, MONICA Abdalla Ot 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, INTRA-ABD 07/14/2017 MONICA ROJAS MD Ot 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 9 TYPE 2 DIABETES MELLITUS WITHOUT COMPLIC 07/14/2017 CAROLE INGRAM MD Ot E78. 2 MIXED HYPERLIPIDEMIA 07/14/2017 CAROLE INGRAM MD Ot I34. 0 NONRHEUMATIC MITRAL (VALVE) INSUFFICIENC 07/14/2017 CAROLE INGRAM MD Ot R07. 9 CHEST PAIN, UNSPECIFIED 07/14/2017 CAROLE INGRAM MD Ot E11. 9 TYPE 2 DIABETES MELLITUS WITHOUT COMPLIC 07/14/2017 CAROLE INGRAM MD Ot E78. 2 MIXED HYPERLIPIDEMIA 07/14/2017 CAROLE INGRAM MD Ot I34. 0 NONRHEUMATIC MITRAL (VALVE) INSUFFICIENC 07/14/2017 CAROLE INGRAM MD Ot R07. 9 CHEST PAIN, UNSPECIFIED 07/14/2017 MONICA ROJAS MD Ot R10.31 RIGHT LOWER QUADRANT PAIN 07/14/2017 MONICA ROJAS MD Ot 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, UNSPECIFIED 07/14/2017 Ot C85.10 UNS PECIFIED B- CELL LYMPHOMA, UNSPECIFIED 07/14/2017 MIO RODRIGUEZ CUSTOMER MANAGEMENT SPECIALIST Ot C83.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, UNSPECIFI 07/14/2017 CAROLE INGRAM MD Ot E78. 2 MIXED HYPERLIPIDEMIA 07/14/2017 CAROLE INGRAM MD Ot R01. 1 CARDIAC MURMUR, UNSPECIFIED 07/14/2017 CAROLE INGRAM MD Ot R07. 9 CHEST PAIN, UNSPECIFIED 07/14/2017 NATALY JURADO, CAROLE Montoya Ot Z82. 49 FAMILY HX OF ISCHEM HEART DIS AND OTH DI 07/14/2017 CAROLE INGRAM MD Ot E78. 2 MIXED HYPERLIPIDEMIA 07/14/2017 CAROLE INGRAM MD Ot R01. 1 CARDIAC MURMUR, UNSPECIFIED 07/14/2017 CAROLE INGRAM MD Ot R07. 9 CHEST PAIN, UNSPECIFIED 07/14/2017 NATALY JURADO, CAROLE Montoya Ot Z82. 49 FAMILY HX OF ISCHEM HEART DIS AND OTH DI 07/14/2017 MEHRDAD JURADO, Lindsay AYON Ot R31.2 1 ASYMPTOMATIC MICROSCOPIC HEMATURIA 07/14/2017 MEHRDAD JURADO, Lindsay [...] 07/14/2017 MONICA ROJAS MD Ot Z79.899 OTHER DECKHAND CLAM DREDGE (CURRENT) DRUG THERAPY 07/14/2017 MONICA ROJAS MD [...] 07/14/2017 MONICA ROJAS MD Ot Z79.899 OTHER DECKHAND CLAM DREDGE (CURRENT) DRUG THERAPY 07/14/2017 MONICA ROJAS MD Ot Z93.3 COLOSTOMY STATUS 07/14/2017 MONICA ROJAS MD Ot Z96.41 PRESENCE OF INSULIN PUMP (EXTERNAL) (INT 07/15/2017 CAROLE INGRAM MD Ot E11. 9 TYPE 2 DIABETES MELLITUS WITHOUT COMPLIC 07/15/2017 CAROLE INGRAM MD Ot I34. 0 NONRHEUMATIC MITRAL (VALVE) INSUFFICIENC 07/15/2017 CAROLE INGRAM MD Ot I34. 1 NONRHEUMATIC MITRAL (VALVE) PROLAPSE 07/15/2017 CAROLE INGRAM MD Ot I50. 9 HEART FAILURE, UNSPECIFIED 07/15/2017 CAROLE INGRAM MD Ot R82. 90 UNSPECIFIED ABNORMAL FINDINGS IN URINE 07/15/2017 CAROLE INGRAM MD Ot Z11. 2 ENCOUNTER FOR SCREENING FOR OTHER BACTER 07/15/2017 CAROLE INGRAM MD Ot Z53. 9 PROCEDURE AND TREATMENT NOT CARRIED OUT, 07/15/2017 CAROLE INGRAM MD Ot Z88. 8 ALLERGY STATUS TO [facility] DRUG/MEDS/BIOL SUB 07/28/2017 NILO MCFARLAND MD Ot 388.70 OTALGIA NOS 07/28/2017 NILO MCFARLAND MD Ot 723 .1 CERVICALGIA 07/28/2017 NILO MCFARLAND MD Ot 787.21 DYSPHAGIA, ORAL PHASE 07/28/2017 KEREN ALBERTO MD Ot 600.0 0 HYPERTROPHY (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 URI 07/28/2017 KEREN ALBERTO MD Ot V72.6 3 PRE-PROCEDURAL LABORATORY EXAMINATION 07/28/2017 KEREN ALBERTO MD Ot V72.8 1 [id number] CARDIOVASCULAR 07/28/2017 KEREN ALBERTO MD Ot V74.8 SCREEN-BACTERIAL DIS NEC 07/28/2017 JENNIFER DOMINGUEZ PRIVATE M[employer]GAGE BANKER SAFE Ot 784.2 SWELLING IN HEAD NECK 07/28/2017 KEREN ALBERTO MD Ot 789.0 9 ABDOMINAL PAIN, OTHER SPECIFIED SITE 07/28/2017 KEREN ALBERTO MD Ot 789.0 0 ABDOMINAL PAIN, UNSPECIFIED SITE 07/28/2017 KEREN ALBERTO MD Ot V81.5 SCREEN FOR NEPHROPATHY 07/28/2017 BRANDO CAZARES MD Ot 791 .9 ABN URINE FINDINGS NEC 07/28/2017 Ot 202.80 OTH LYMPHOMAS EXTRANODAL SOLID ORGAN U 07/28/2017 Ot 792.1 ABN FIND-STOOL CONTENTS 07/28/2017 Ot 202.80 OTH LYMPHOMAS EXTRANODAL SOLID ORGAN U 07/28/2017 Ot 792.1 ABN FIND-STOOL CONTENTS 07/28/2017 Ot 153.9 ANTWON GNANT GEOVANY COLON NOS 07/28/2017 Ot V72.83 EXA M PRE- OPERATIVE NEC 07/28/2017 Ot V74.8 SCRE EN-BACTERIAL DIS NEC 07/28/2017 Ot 195.3 ANTWON GN NEOPL PELVIS 07/28/2017 CRYSTAL JURADO, MONICA Abdalla Ot 200.80 OTHER VARIANTS, EXTRANODAL SOLID ORGAN 07/28/2017 CRYSTAL JURADO, MONICA Abdalla Ot 200.70 LARGE CELL LYMPHOMA, UNSP SITE, EXTRANOD 07/28/2017 NATANAEL GALVAN ADULT PROBATION OFFICER Ot 202.80 OTH LYMPHOMAS EXTRANODAL SOLID ORGAN U 07/28/2017 NATANAEL GALVAN ADULT PROBATION OFFICER Ot 250.00 DIAB GER WO COMPL, TYPE II OR UNSPEC TY 07/28/2017 NATANAEL GALVAN ADULT PROBATION OFFICER Ot 272.4 HYPERLIPIDEMIA NEC/NOS 07/28/2017 NATANAEL GALVAN ADULT PROBATION OFFICER Ot 356.9 IDIO PERIPH NEURPTHY NOS 07/28/2017 NATANAEL GALVAN ADULT PROBATION OFFICER Ot 401.9 HYPERTENSION NOS 07/28/2017 NATANAEL GALVAN ADULT PROBATION OFFICER Ot 564.00 UNSPEC CONSTIPATION 07/28/2017 NATANAEL GALVAN ADULT PROBATION OFFICER Ot 714.0 RHEUMATOID ARTHRITIS 07/28/2017 NATANAEL GALVAN ADULT PROBATION OFFICER Ot V44.3 COLOSTOMY STATUS 07/28/2017 NATANAEL GALVAN ADULT PROBATION OFFICER Ot V45.85 INSULIN PUMP STATUS 07/28/2017 NATANAEL GALVAN ADULT PROBATION OFFICER Ot V58.69 OTH MED,LT,CURRENT USE 07/28/2017 CRYSTAL JURADO, MONICA Abdalla Ot 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, INTRA-ABD 07/28/2017 MONICA ROJAS MD Ot 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, INTRA-ABD 07/28/2017 MONICA ROJAS MD Ot 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, INTRA-ABD 07/28/2017 MONICA ROJAS MD Ot 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, INTRA-ABD 07/28/2017 NATALY JURADO, CAROLE Montoya Ot E11. 9 TYPE 2 DIABETES MELLITUS WITHOUT COMPLIC 07/28/2017 CAROLE INGRAM MD Ot E78. 2 MIXED HYPERLIPIDEMIA 07/28/2017 CAROLE INGRAM MD Ot I34. 0 NONRHEUMATIC MITRAL (VALVE) INSUFFICIENC 07/28/2017 CAROLE INGRAM MD Ot R07. 9 CHEST PAIN, UNSPECIFIED 07/28/2017 CAROLE INGRAM MD Ot E11. 9 TYPE 2 DIABETES MELLITUS WITHOUT COMPLIC 07/28/2017 CAROLE INGRAM MD Ot E78. 2 MIXED HYPERLIPIDEMIA 07/28/2017 CAROLE INGRAM MD Ot I34. 0 NONRHEUMATIC MITRAL (VALVE) INSUFFICIENC 07/28/2017 CAROLE INGRAM MD Ot R07. 9 CHEST PAIN, UNSPECIFIED 07/28/2017 CRYSTAL JURADO, MONICA Abdalla Ot R10.31 RIGHT LOWER QUADRANT PAIN 07/28/2017 CRYSTAL JURADO, MONICA Abdalla Ot 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, UNSPECIFIED 07/28/2017 Ot C85.10 UNS PECIFIED B- CELL LYMPHOMA, UNSPECIFIED 07/28/2017 MIO RODRIGUEZ CUSTOMER MANAGEMENT SPECIALIST Ot C83.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, UNSPECIFI 07/28/2017 CAROLE INGRAM MD Ot E78. 2 MIXED HYPERLIPIDEMIA 07/28/2017 CAROLE INGRAM MD Ot R01. 1 CARDIAC MURMUR, UNSPECIFIED 07/28/2017 CAROLE INGRAM MD Ot R07. 9 CHEST PAIN, UNSPECIFIED 07/28/2017 CAROLE INGRAM MD Ot Z82. 49 FAMILY HX OF ISCHEM HEART DIS AND OTH DI 07/28/2017 CAROLE INGRAM MD Ot E78. 2 MIXED HYPERLIPIDEMIA 07/28/2017 CAROLE INGRAM MD Ot R01. 1 CARDIAC MURMUR, UNSPECIFIED 07/28/2017 CAROLE INGRAM MD Ot R07. 9 CHEST PAIN, UNSPECIFIED 07/28/2017 CAROLE INGRAM MD Ot Z82. 49 FAMILY HX OF ISCHEM HEART DIS AND OTH DI 07/28/2017 MEHRDAD JURADO, Lindsay AYON Ot R31.2 1 ASYMPTOMATIC MICROSCOPIC HEMATURIA 07/28/2017 MEHRDAD JURADO, Lindsay AYON Ot Z12.5 ENCOUNTER FOR SCREENING FOR MALIGNANT NE 07/28/2017 CRYSTAL JURADO, MONICA Abdalla Ot 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, INTRA-ABD 07/28/2017 MONICA ROJAS MD Ot C85.80 OT TYPES OF NON-HODGKIN LYMPHOMA, UNSPE 07/28/2017 MONICA ROJAS MD Ot E11.9 TYPE 2 DIABETES MELLITUS WITHOUT COMPLIC 07/28/2017 MONICA ROJAS MD Ot E78.5 HYPERLIPIDEMIA, UNSPECIFIED 07/28/2017 MONICA ROJAS MD Ot I10 ESSENTIAL (PRIMARY) HYPERTENSION 07/28/2017 MONICA ROJAS MD Ot Z79.899 OTHER LONG-TERM (CURRENT) DRUG THERAPY 07/28/2017 MONICA ROJAS MD Ot Z93.3 COLOSTOMY STATUS 07/28/2017 MONICA ROJAS MD Ot Z96.41 PRESENCE OF INSULIN PUMP (EXTERNAL) (INT 07/28/2017 CAROLE INGRAM MD Ot E78. 2 MIXED HYPERLIPIDEMIA 07/28/2017 CAROLE INGRAM MD Ot I08. 3 COMB RHEUMATIC DISORD OF MITRAL, AORTIC 07/28/2017 CAROLE INGRAM MD Ot I50. 9 HEART FAILURE, UNSPECIFIED 07/28/2017 CAROLE INGRAM MD Ot R06. 09 OTHER FORMS OF DYSPNEA 07/28/2017 CAROLE INGRAM MD Ot R07. 89 OTHER CHEST PAIN 07/28/2017 CAROLE INGRAM MD Ot E11. 9 TYPE 2 DIABETES MELLITUS WITHOUT COMPLIC 07/28/2017 CAROLE INGRAM MD Ot I34. 0 NONRHEUMATIC MITRAL (VALVE) INSUFFICIENC 07/28/2017 CAROLE INGRAM MD Ot I34. 1 NONRHEUMATIC MITRAL (VALVE) PROLAPSE 07/28/2017 CAROLE INGRAM MD Ot I50. 9 HEART FAILURE, UNSPECIFIED 07/28/2017 CAROLE INGRAM MD Ot R82. 90 UNSPECIFIED ABNORMAL FINDINGS IN URINE 07/28/2017 CAROLE INGRAM MD Ot Z11. 2 ENCOUNTER FOR SCREENING FOR OTHER BACTER 07/28/2017 CAROLE INGRAM MD Ot Z53. 9 PROCEDURE AND TREATMENT NOT CARRIED OUT, 07/28/2017 CAROLE INGRAM MD, Ot Z88. 8 ALLERGY STATUS TO [facility] DRUG/MEDS/BIOL SUB 07/28/2017 CAROLE INGRAM MD Ot I25. 10 ATHSCL HEART DISEASE OF [place] CORONARY 07/28/2017 CAROLE INGRAM MD Ot I34. 0 NONRHEUMATIC MITRAL (VALVE) INSUFFICIENC 07/28/2017 CAROLE INGRAM MD Ot I38 ENDOCARDITIS, VALVE UNSPECIFIED 07/28/2017 CAROLE INGRAM MD Ot I50. 22 CHRONIC SYSTOLIC (CONGESTIVE) HEART FAIL 07/28/2017 CAROLE INGRAM MD Ot R82. 90 UNSPECIFIED ABNORMAL FINDINGS IN URINE 07/28/2017 CAROLE INGRAM MD Ot Z11. 2 ENCOUNTER FOR SCREENING FOR OTHER BACTER 07/30/2017 CAROLE INGRAM MD Ot I25. 10 ATHSCL HEART DISEASE OF [place] CORONARY 07/30/2017 CAROLE INGRAM MD Ot I34. 0 NONRHEUMATIC MITRAL (VALVE) INSUFFICIENC 07/30/2017 CAROLE INGRAM MD Ot I38 ENDOCARDITIS, VALVE UNSPECIFIED 07/30/2017 CAROLE INGRAM MD Ot I50. 22 CHRONIC SYSTOLIC (CONGESTIVE) HEART FAIL 07/30/2017 CAROLE INGRAM MD Ot R82. 90 UNSPECIFIED ABNORMAL FINDINGS IN URINE 07/30/2017 CAROLE INGRAM MD Ot Z11. 2 ENCOUNTER FOR SCREENING FOR OTHER BACTER 08/03/2017 CAROLE INGRAM MD Ot E78. 2 MIXED HYPERLIPIDEMIA 08/03/2017 CAROLE INGRAM MD Ot I08. 3 COMB RHEUMATIC DISORD OF MITRAL, AORTIC 08/03/2017 CAROLE INGRAM MD Ot I50. 9 HEART FAILURE, UNSPECIFIED 08/03/2017 CAROLE INGRAM MD Ot R06. 09 OTHER FORMS OF DYSPNEA 08/03/2017 CAROLE INGRAM MD Ot R07. 89 OTHER CHEST PAIN 08/09/2017 CAROLE INGRAM MD Ot E11. 9 TYPE 2 DIABETES MELLITUS WITHOUT COMPLIC 08/09/2017 CAROLE INGRAM MD Ot I34. 0 NONRHEUMATIC MITRAL (VALVE) INSUFFICIENC 08/09/2017 CAROLE INGRAM MD Ot I34. 1 NONRHEUMATIC MITRAL (VALVE) PROLAPSE 08/09/2017 CAROLE INGRAM MD Ot I50. 9 HEART FAILURE, UNSPECIFIED 08/09/2017 CAROLE INGRAM MD Ot R82. 90 UNSPECIFIED ABNORMAL FINDINGS IN URINE 08/09/2017 CAROLE INGRAM MD Ot Z11. 2 ENCOUNTER FOR SCREENING FOR OTHER BACTER 08/09/2017 CAROLE INGRAM MD, Ot Z53. 9 PROCEDURE AND TREATMENT NOT CARRIED OUT, 08/09/2017 CAROLE INGRAM MD Ot Z88. 8 ALLERGY STATUS TO OTH DRUG/MEDS/BIOL SUB 09/01/2017 CAROLE INGRAM MD Ot E78. 2 MIXED HYPERLIPIDEMIA 09/01/2017 CAROLE INGRAM MD Ot I08. 3 COMB RHEUMATIC DISORD OF MITRAL, AORTIC 09/01/2017 CAROLE INGRAM MD Ot I50. 9 HEART FAILURE, UNSPECIFIED 09/01/2017 CAROLE INGRAM MD Ot R06. 09 OTHER FORMS OF DYSPNEA 09/01/2017 CAROLE INGRAM MD Ot R07. 89 OTHER CHEST PAIN 09/29/2017 CAROLE INGRAM MD Ot E11. 9 TYPE 2 DIABETES MELLITUS WITHOUT COMPLIC 09/29/2017 CAROLE INGRAM MD Ot I34. 0 NONRHEUMATIC MITRAL (VALVE) INSUFFICIENC 09/29/2017 CAROLE INGRAM MD Ot I34. 1 NONRHEUMATIC MITRAL (VALVE) PROLAPSE 09/29/2017 CAROLE INGRAM MD Ot I50. 9 HEART FAILURE, UNSPECIFIED 09/29/2017 CAROLE INGRAM MD Ot R82. 90 UNSPECIFIED ABNORMAL FINDINGS IN URINE 09/29/2017 ACROLE INGRAM MD Ot Z11. 2 ENCOUNTER FOR SCREENING FOR OTHER BACTER 09/29/2017 CAROLE INGRAM MD Ot Z53. 9 PROCEDURE AND TREATMENT NOT CARRIED OUT, 09/29/2017 CAROLE INGRAM MD, Ot Z88. 8 ALLERGY STATUS TO OTH DRUG/MEDS/BIOL SUB 03/01/2018 ETTA ROMANO DO Ot E11.40 TYPE 2 DIABETES MELLITUS WITH DIABETIC N 03/01/2018 ETTA ROMANO DO Ot I10 ESSENTIAL (PRIMARY) HYPERTENSION 03/01/2018 ETTA ROMANO DO Ot I25.10 ATHSCL HEART DISEASE OF [place] CORONARY 03/01/2018 ETTA ROMANO DO Ot M06.9 RHEUMATOID ARTHRITIS, UNSPECIFIED 03/01/2018 ETTA ROMANO DO Ot S01.81X A LACERATION W/O FOREIGN BODY OF OTH PART 03/01/2018 ETTA ROMANO DO, Ot S09.90X A UNSPECIFIED INJURY OF HEAD, INITIAL ENCO 03/01/2018 ETTA ROMANO DO, Ot S16.1XX A STRAIN OF MUSCLE, FASCIA AND TENDON AT N 03/01/2018 ETTA ROMANO DO Ot Z23 ENCOUNTER FOR IMMUNIZATION 03/01/2018 ETTA ROMANO DO Ot Z79.4 LONG-TERM (CURRENT) USE OF INSULIN 03/01/2018 ETTA ROMANO DO Ot Z79.52 LONG-TERM (CURRENT) USE OF SYSTEMIC STER 03/01/2018 ETTA ROMANO DO Ot Z79.82 DECKHAND CLAM DREDGE (CURRENT) USE OF ASPIRIN 03/01/2018 ETTA ROMANO DO Ot Z82.49 FAMILY HX OF ISCHEM HEART DIS AND OTH DI 03/01/2018 ETTA ROMANO DO Ot Z85.72 PERSONAL HISTORY OF NON-HODGKIN LYMPHOMA 03/01/2018 ETTA ROMANO DO Ot Z86.79 PERSONAL HISTORY OF OTHER DISEASES OF TH 03/01/2018 ETTA ROMANO DO Ot Z87.19 PERSONAL HISTORY OF OTHER DISEASES OF TH 03/01/2018 ETTA ROMANO DO Ot Z87.448 PERSONAL HISTORY OF OTHER DISEASES OF UR 03/01/2018 ETTA ROMANO DO Ot Z87.891 PERSONAL HISTORY OF NICOTINE DEPENDENCE 03/01/2018 ETTA ROMANO DO Ot Z88.5 ALLERGY STATUS TO NARCOTIC AGENT STATUS 03/01/2018 ETTA ROMANO DO Ot Z88.6 ALLERGY STATUS TO ANALGESIC AGENT STATUS 03/01/2018 ETTA ROMANO DO Ot Z88.8 ALLERGY STATUS TO OTH DRUG/MEDS/BIOL SUB 03/01/2018 ETTA ROMANO DO Ot Z90.49 ACQUIRED ABSENCE OF OTHER SPECIFIED PART 03/01/2018 ETTA ROMANO DO Ot Z90.6 ACQUIRED ABSENCE OF OTHER PARTS OF URINA 03/01/2018 ETTA ROMANO DO Ot Z90.79 ACQUIRED ABSENCE OF OTHER GENITAL ORGAN( 03/01/2018 ETTA ROMANO DO Ot Z92.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 CHEMO 03/01/2018 ETTA ROMANO DO Ot Z93.3 COLOSTOMY STATUS 03/01/2018 ETTA ROMANO DO Ot Z95.9 PRESENCE OF CARDIAC AND VASCULAR IMPLANT 03/01/2018 ETTA ROMANO DO Ot Z98.890 OTHER SPECIFIED POSTPROCEDURAL STATES 03/03/2018 JUAN ANTONIO SANTANA ETTA Rm Ot E11.40 TYPE 2 DIABETES MELLITUS WITH DIABETIC N 03/03/2018 JUAN ANTONIO ETTA Ot I10 ESSENTIAL (PRIMARY) HYPERTENSION 03/03/2018 JUAN ANTONIO ETTA Rm Ot I25.10 ATHSCL HEART DISEASE OF [place] CORONARY 03/03/2018 JUAN ANTONIO SANTANA ETTA Rm Ot M06.9 RHEUMATOID ARTHRITIS, UNSPECIFIED 03/03/2018 JUAN ANTONIO ETTA K Ot S01.81X A LACERATION W/O FOREIGN BODY OF OTH PART 03/03/2018 JUAN ANTONIO SANTANA ETTA Rm Ot S09.90X A UNSPECIFIED INJURY OF HEAD, INITIAL ENCO 03/03/2018 JUAN ANTONIO SANTANA ETTA Rm Ot S16.1XX A STRAIN OF MUSCLE, FASCIA AND TENDON AT N 03/03/2018 JUAN ANTONIO ETTA Ot Z23 ENCOUNTER FOR IMMUNIZATION 03/03/2018 JUAN ANTONIO ETTA Ot Z79.4 LONG-TERM (CURRENT) USE OF INSULIN 03/03/2018 ETTA ROMANO DO Ot Z79.52 LONG-TERM (CURRENT) USE OF SYSTEMIC STER 03/03/2018 JUAN ANTONIO ETTA Ot Z79.82 LONG-TERM (CURRENT) USE OF ASPIRIN 03/03/2018 JUAN ANTONIO ETTA Ot Z82.49 FAMILY HX OF ISCHEM HEART DIS AND OTH DI 03/03/2018 JUAN ANTONIO ETTA Ot Z85.72 PERSONAL HISTORY OF NON-HODGKIN LYMPHOMA 03/03/2018 ETTA ROMANO DO Ot Z86.79 PERSONAL HISTORY OF OTHER DISEASES OF TH 03/03/2018 JUAN ANTONIO DOETTA Ot Z87.19 PERSONAL HISTORY OF OTHER DISEASES OF TH 03/03/2018 JUAN ANTONIO ETTA Ot Z87.448 PERSONAL HISTORY OF OTHER DISEASES OF UR 03/03/2018 ETTA ROMANO DO Ot Z87.891 PERSONAL HISTORY OF NICOTINE DEPENDENCE 03/03/2018 ETTA ROMANO DO Ot Z88.5 ALLERGY STATUS TO NARCOTIC AGENT STATUS 03/03/2018 ETTA ROMANO DO Ot Z88.6 ALLERGY STATUS TO ANALGESIC AGENT STATUS 03/03/2018 JUAN ANTONIO ETTA SANTANA Ot Z88.8 ALLERGY STATUS TO OTH DRUG/MEDS/BIOL SUB 03/03/2018 ETTA ROMANO DO Ot Z90.49 ACQUIRED ABSENCE OF OTHER SPECIFIED PART 03/03/2018 ETTA ROMANO DO Ot Z90.6 ACQUIRED ABSENCE OF OTHER PARTS OF URINA 03/03/2018 ETTA ROMANO DO Ot Z90.79 ACQUIRED ABSENCE OF OTHER GENITAL ORGAN( 03/03/2018 ETTA ROMANO DO Ot 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.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 CHEMO 03/03/2018 ETTA ROMANO DO Ot Z93.3 COLOSTOMY STATUS 03/03/2018 ETTA ROMANO DO Ot Z95.9 PRESENCE OF CARDIAC AND VASCULAR IMPLANT 03/03/2018 ETTA ROMANO DO Ot Z98.890 OTHER SPECIFIED POSTPROCEDURAL STATES 06/21/2018 Dean Benoit 923.00 CONTUSION OF SHOULDER REGION 06/21/2018 Dean Benoit S40.011A CONTUSION OF RIGHT SHOULDER, INITIAL ENCOUNTER 08/17/2018 ITALIA BASS MD Ot C81.90 H[place]GK[place] LYMPHOMA, UNSPECIFIED, UNSPECIFI 08/17/2018 ITALIA BASS MD Ot E11.40 TYPE 2 DIABETES MELLITUS WITH DIABETIC N 08/17/2018 ITALIA BASS MD, Ot E11.649 TYPE 2 DIABETES MELLITUS WITH HYPOGLYCEM 08/17/2018 ITALIA BASS MD, Ot F10.29 ALCOHOL DEPENDENCE WITH UNSPECIFIED ALCO 08/17/2018 ITALIA BASS MD, Ot I10 ESSENTIAL (PRIMARY) HYPERTENSION 08/17/2018 ITALIA BASS MD, Ot I25.10 ATHSCL HEART DISEASE OF [place] CORONARY 08/17/2018 ITALIA BASS MD Ot I63 .9 CEREBRAL INFARCTION, UNSPECIFIED 08/17/2018 ITALIA BASS MD, Ot K59.09 OTHER CONSTIPATION 08/17/2018 ITALIA BASS MD, Ot M06 .9 RHEUMATOID ARTHRITIS, UNSPECIFIED 08/17/2018 ITALIA BASS MD, Ot R01 .1 CARDIAC MURMUR, UNSPECIFIED 08/17/2018 ITALIA BASS MD, Ot R29.704 NIHSS SCORE 4 08/17/2018 ITALIA BASS MD, Ot R45 .1 RESTLESSNESS AND AGITATION 08/17/2018 ITALIA BASS MD, Ot R47.01 APHASIA 08/17/2018 ITALIA BASS MD Ot Z79 .4 LONG-TERM (CURRENT) USE OF INSULIN 08/17/2018 ITALIA BASS MD, Ot Z87.891 PERSONAL HISTORY OF NICOTINE DEPENDENCE 08/17/2018 ITALIA BASS MD, Ot Z92.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 CHEMO 08/18/2018 ITALIA BASS MD, Ot C81.90 HODGK[place] LYMPHOMA, UNSPECIFIED, UNSPECIFI 08/18/2018 ITALIA BASS MD Ot E11.40 TYPE 2 DIABETES MELLITUS WITH DIABETIC N 08/18/2018 ITALIA BASS MD Ot E11.649 TYPE 2 DIABETES MELLITUS WITH HYPOGLYCEM 08/18/2018 ITALIA BASS MD Ot F10.29 ALCOHOL DEPENDENCE WITH UNSPECIFIED ALCO 08/18/2018 ITALIA BASS MD, Ot I10 ESSENTIAL (PRIMARY) HYPERTENSION 08/18/2018 ITALIA BASS MD Ot I25.10 ATHSCL HEART DISEASE OF [place] CORONARY 08/18/2018 ITALIA BASS MD Ot I63 .9 CEREBRAL INFARCTION, UNSPECIFIED 08/18/2018 ITALIA BASS MD Ot K59.09 OTHER CONSTIPATION 08/18/2018 ITALIA BASS MD Ot M06 .9 RHEUMATOID ARTHRITIS, UNSPECIFIED 08/18/2018 ITALIA ABSS MD, Ot R01 .1 CARDIAC MURMUR, UNSPECIFIED 08/18/2018 ITALIA BASS MD Ot R29.704 NIHSS SCORE 4 08/18/2018 ITALIA BASS MD Ot R45 .1 RESTLESSNESS AND AGITATION 08/18/2018 ITALIA BASS MD Ot R47.01 APHASIA 08/18/2018 ITALIA BASS MD Ot Z79 .4 DECKHAND CLAM DREDGE (CURRENT) USE OF INSULIN 08/18/2018 ITALIA BASS MD, Ot Z87.891 PERSONAL HISTORY OF NICOTINE DEPENDENCE 08/18/2018 ITALIA BASS MD, Ot Z92.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 CHEMO 08/18/2018 ITALIA BASS MD, Ot C81.90 [place] LYMPHOMA, UNSPECIFIED, UNSPECIFI 08/18/2018 ITALIA BASS MD Ot E11.40 TYPE 2 DIABETES MELLITUS WITH DIABETIC N 08/18/2018 ITALIA BASS MD Ot E11.649 TYPE 2 DIABETES MELLITUS WITH HYPOGLYCEM 08/18/2018 ITALIA BASS MD Ot E11.65 TYPE 2 DIABETES MELLITUS WITH HYPERGLYCE 08/18/2018 ITALIA BASS MD Ot F10.239 ALCOHOL DEPENDENCE WITH WITHDRAWAL, UNSP 08/18/2018 ITALIA BASS MD Ot F10.29 ALCOHOL DEPENDENCE WITH UNSPECIFIED ALCO 08/18/2018 ITALIA BASS MD Ot H91.10 PRESBYCUSIS, UNSPECIFIED EAR 08/18/2018 ITALIA BASS MD Ot I10 ESSENTIAL (PRIMARY) HYPERTENSION 08/18/2018 ITALIA BASS MD Ot I25.10 ATHSCL HEART DISEASE OF [place] CORONARY 08/18/2018 ITALIA BASS MD Ot I34 .0 NONRHEUMATIC MITRAL (VALVE) INSUFFICIENC 08/18/2018 ITALIA BASS MD Ot I63 .9 CEREBRAL INFARCTION, UNSPECIFIED 08/18/2018 ITALIA BASS MD Ot K59.09 OTHER CONSTIPATION 08/18/2018 ITALIA BASS MD Ot M06 .9 RHEUMATOID ARTHRITIS, UNSPECIFIED 08/18/2018 ITALIA BASS MD Ot R01 .1 CARDIAC MURMUR, UNSPECIFIED 08/18/2018 ITALIA BASS MD Ot R29.704 NIHSS SCORE 4 08/18/2018 ITALIA BASS MD Ot R45 .1 RESTLESSNESS AND AGITATION 08/18/2018 ITALIA BASS MD Ot R47.01 APHASIA 08/18/2018 ITALIA BASS MD Ot Z66 DO NOT RESUSCITATE 08/18/2018 ITALIA BASS MD Ot Z79 .4 LONG-TERM (CURRENT) USE OF INSULIN 08/18/2018 ITALIA BASS MD Ot Z79.52 LONG-TERM (CURRENT) USE OF SYSTEMIC STER 08/18/2018 ITALIA BASS MD Ot Z87.891 PERSONAL HISTORY OF NICOTINE DEPENDENCE 08/18/2018 ITALIA BASS MD Ot Z92.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 CHEMO 01/06/2019 KEREN ALBERTO MD Ot 600.0 0 HYPERTROPHY (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 URI 01/06/2019 KEREN ALBERTO MD Ot V72.6 3 PRE-PROCEDURAL LABORATORY EXAMINATION 01/06/2019 KEREN ALBERTO MD Ot V72.8 1 CCUP-KJZ-OMOXGYBCO CARDIOVASCULAR 01/06/2019 DOLLY JURADO, KEREN Hair Ot V74.8 SCREEN-BACTERIAL DIS NEC 01/06/2019 JENNIFER DOMINGUEZ [employer]IVATE [employer] BANKER SAFE Ot 784.2 SWELLING IN HEAD NECK 01/06/2019 KEREN ALBERTO MD Ot 789.0 9 ABDOMINAL PAIN, OTHER SPECIFIED SITE 01/06/2019 KEREN ALBERTO MD Ot 789.0 0 ABDOMINAL PAIN, UNSPECIFIED SITE 01/06/2019 DOLLY JURADO, KEREN Hair Ot V81.5 SCREEN FOR NEPHROPATHY 01/06/2019 DEBORA JURADO, BRANDO Abdalla Ot 791 .9 ABN URINE FINDINGS NEC 01/06/2019 Ot 202.80 OTH LYMPHOMAS EXTRANODAL SOLID ORGAN U 01/06/2019 Ot 792.1 ABN FIND-STOOL CONTENTS 01/06/2019 Ot 202.80 OTH LYMPHOMAS EXTRANODAL SOLID ORGAN U 01/06/2019 Ot 792.1 ABN FIND-STOOL CONTENTS 01/06/2019 Ot 153.9 ANTWON GNANT GEOVANY COLON NOS 01/06/2019 Ot V72.83 EXA M PRE- OPERATIVE NEC 01/06/2019 Ot V74.8 SCRE EN-BACTERIAL DIS NEC 01/06/2019 Ot 195.3 ANTWON GN NEOPL PELVIS 01/06/2019 CRYSTAL JURADO, MONICA Abdalla Ot 200.80 OTHER VARIANTS, EXTRANODAL SOLID ORGAN 01/06/2019 CRYSTAL JURADO, MONICA Abdalla Ot 200.70 LARGE CELL LYMPHOMA, UNSP SITE, EXTRANOD 01/06/2019 NATANAEL GALVAN ADULT PROBATION OFFICER Ot 202.80 OTH LYMPHOMAS EXTRANODAL SOLID ORGAN U 01/06/2019 NATANAEL GALVAN ADULT PROBATION OFFICER Ot 250.00 DIAB GER WO COMPL, TYPE II OR UNSPEC TY 01/06/2019 NATANAEL GALVAN ADULT PROBATION OFFICER Ot 272.4 HYPERLIPIDEMIA NEC/NOS 01/06/2019 NATANAEL GALVAN ADULT PROBATION OFFICER Ot 356.9 IDIO PERIPH NEURPTHY NOS 01/06/2019 NATANAEL GALVAN ADULT PROBATION OFFICER Ot 401.9 HYPERTENSION NOS 01/06/2019 NATANAEL GALVAN ADULT PROBATION OFFICER Ot 564.00 UNSPEC CONSTIPATION 01/06/2019 NATANAEL GALVAN ADULT PROBATION OFFICER Ot 714.0 RHEUMATOID ARTHRITIS 01/06/2019 NATANAEL GALVAN ADULT PROBATION OFFICER Ot V44.3 COLOSTOMY STATUS 01/06/2019 NATANAEL GALVAN ADULT PROBATION OFFICER Ot V45.85 INSULIN PUMP STATUS 01/06/2019 NATANAEL GALVAN ADULT PROBATION OFFICER Ot V58.69 OT MED,LT,CURRENT USE 01/06/2019 CRYSTAL JURADO, MONICA Abdalla Ot 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, INTRA-ABD 01/06/2019 MONICA ROJAS MD, Ot 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, INTRA-ABD 01/06/2019 MONICA ROJAS MD Ot 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, INTRA-ABD 01/06/2019 MONICA ROJAS MD, Ot 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, INTRA-ABD 01/06/2019 CAROLE INGRAM MD Ot E11. 9 TYPE 2 DIABETES MELLITUS WITHOUT COMPLIC 01/06/2019 CAROLE INGRAM MD Ot E78. 2 MIXED HYPERLIPIDEMIA 01/06/2019 CAROLE INGRAM MD Ot I34. 0 NONRHEUMATIC MITRAL (VALVE) INSUFFICIENC 01/06/2019 CAROLE INGRAM MD Ot R07. 9 CHEST PAIN, UNSPECIFIED 01/06/2019 CAROLE INGRAM MD Ot E11. 9 TYPE 2 DIABETES MELLITUS WITHOUT COMPLIC 01/06/2019 CAROLE INGRAM MD Ot E78. 2 MIXED HYPERLIPIDEMIA 01/06/2019 CAROLE INGRAM MD Ot I34. 0 NONRHEUMATIC MITRAL (VALVE) INSUFFICIENC 01/06/2019 CAROLE INGRAM MD Ot R07. 9 CHEST PAIN, UNSPECIFIED 01/06/2019 MONICA ROJAS MD Ot R10.31 RIGHT LOWER QUADRANT PAIN 01/06/2019 MONICA ROJAS MD Ot 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, UNSPECIFIED 01/06/2019 Ot C85.10 UNS PECIFIED B- CELL LYMPHOMA, UNSPECIFIED 01/06/2019 MIO RODRIGUEZ CUSTOMER MANAGEMENT SPECIALIST Ot C83.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, UNSPECIFI 01/06/2019 CAROLE INGRAM MD Ot E78. 2 MIXED HYPERLIPIDEMIA 01/06/2019 CAROLE INGRAM MD Ot R01. 1 CARDIAC MURMUR, UNSPECIFIED 01/06/2019 CAROLE INGRAM MD Ot R07. 9 CHEST PAIN, UNSPECIFIED 01/06/2019 CAROLE INGRAM MD Ot Z82. 49 FAMILY HX OF ISCHEM HEART DIS AND OTH DI 01/06/2019 CAROLE INGRAM MD Ot E78. 2 MIXED HYPERLIPIDEMIA 01/06/2019 CAROLE INGRAM MD Ot R01. 1 CARDIAC MURMUR, UNSPECIFIED 01/06/2019 CAROLE INGRAM MD Ot R07. 9 CHEST PAIN, UNSPECIFIED 01/06/2019 CAROLE INGRAM MD Ot Z82. 49 FAMILY HX OF ISCHEM HEART DIS AND OTH DI 01/06/2019 Lindsay CRONIN MD Ot R31.2 1 ASYMPTOMATIC MICROSCOPIC HEMATURIA 01/06/2019 Lindsay CRONIN MD Ot Z12.5 ENCOUNTER FOR SCREENING FOR MALIGNANT NE 01/06/2019 MONICA ROJAS MD Ot 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, INTRA-ABD 01/06/2019 MONICA ROJAS MD, Ot C85.80 OT TYPES OF NON-HODGKIN LYMPHOMA, UNSPE 01/06/2019 MONICA ROJAS MD Ot E11.9 TYPE 2 DIABETES MELLITUS WITHOUT COMPLIC 01/06/2019 MONICA ROJAS MD Ot E78.5 HYPERLIPIDEMIA, UNSPECIFIED 01/06/2019 MONICA ROJAS MD Ot I10 ESSENTIAL (PRIMARY) HYPERTENSION 01/06/2019 MONICA ROJAS MD Ot Z79.899 OTHER LONG-TERM (CURRENT) DRUG THERAPY 01/06/2019 MONICA ROJAS MD Ot Z93.3 COLOSTOMY STATUS 01/06/2019 MONICA ROJAS MD Ot Z96.41 PRESENCE OF INSULIN PUMP (EXTERNAL) (INT 01/06/2019 CAROLE INGRAM MD Ot E78. 2 MIXED HYPERLIPIDEMIA 01/06/2019 CAROLE INGRAM MD Ot I08. 3 COMB RHEUMATIC DISORD OF MITRAL, AORTIC 01/06/2019 CAROLE INGRAM MD Ot I50. 9 HEART FAILURE, UNSPECIFIED 01/06/2019 CAROLE INGRAM MD Ot R06. 09 OTHER FORMS OF DYSPNEA 01/06/2019 CAROLE INGRAM MD Ot R07. 89 OTHER CHEST PAIN 01/06/2019 CAROLE INGRAM MD Ot E11. 9 TYPE 2 DIABETES MELLITUS WITHOUT COMPLIC 01/06/2019 CAROLE INGRAM MD Ot I34. 0 NONRHEUMATIC MITRAL (VALVE) INSUFFICIENC 01/06/2019 CAROLE INGRAM MD Ot I34. 1 NONRHEUMATIC MITRAL (VALVE) PROLAPSE 01/06/2019 CAROLE INGRAM MD Ot I50. 9 HEART FAILURE, UNSPECIFIED 01/06/2019 CAROLE INGRAM MD Ot R82. 90 UNSPECIFIED ABNORMAL FINDINGS IN URINE 01/06/2019 CAROLE INGRAM MD Ot Z11. 2 ENCOUNTER FOR SCREENING FOR OTHER BACTER 01/06/2019 CAROLE INGRAM MD Ot Z53. 9 PROCEDURE AND TREATMENT NOT CARRIED OUT, 01/06/2019 CAROLE INGRAM MD Ot Z88. 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 01/11/2019 JOSSELINE SNIDER MD Ot I70.90 UNSPECIFIED ATHEROSCLEROSIS 01/11/2019 JOSSELINE SNIDER MD Ot K44.9 DIAPHRAGMATIC HERNIA WITHOUT OBSTRUCTION 01/11/2019 JOSSELINE SNIDER MD Ot M25.811 OTHER SPECIFIED JOINT DISORDERS, RIGHT S 01/11/2019 JOSSELINE SNIDER MD Ot M25.812 OTHER SPECIFIED JOINT DISORDERS, LEFT SH 01/11/2019 JOSSELINE SNIDER MD Ot Z98.890 OTHER SPECIFIED POSTPROCEDURAL STATES 01/26/2019 OPAL FLANNERY MD Ot C85.86 OTH TYPES OF NON-[place] LYMPHOMA, INTRA 01/26/2019 OPAL FLANNERY MD 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 01/26/2019 OPAL FLANNERY MD Ot Z98.890 OTHER SPECIFIED POSTPROCEDURAL STATES 01/26/2019 OPAL FLANNERY MD Ot C85.86 OTH TYPES OF NON-[place] LYMPHOMA, INTRA 01/26/2019 OPAL FLANNERY MD 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 01/26/2019 OPAL FLANNERY MD Ot Z98.890 OTHER SPECIFIED POSTPROCEDURAL STATES 01/30/2019 JOSSELINE SNIDER MD Ot C85.86 OTH TYPES OF NON-[place] LYMPHOMA, INTRA 01/30/2019 JOSSELINE SNIDER MD 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 01/30/2019 JOSSELINE SNIDER MD Ot I70.90 UNSPECIFIED ATHEROSCLEROSIS 01/30/2019 JOSSELINE SNIDER MD Ot K44.9 DIAPHRAGMATIC HERNIA WITHOUT OBSTRUCTION 01/30/2019 JOSSELINE SNIDER MD Ot M25.811 OTHER SPECIFIED JOINT DISORDERS, RIGHT S 01/30/2019 JOSSELINE SNIDER MD Ot M25.812 OTHER SPECIFIED JOINT DISORDERS, LEFT SH 01/30/2019 JOSSELINE SNIDER MD Ot Z98.890 OTHER SPECIFIED POSTPROCEDURAL STATES 02/24/2019 OPAL FLANNERY MD Ot C85.86 OTH TYPES OF NON-[place] LYMPHOMA, INTRA 02/24/2019 OPAL FLANNERY MD 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 02/24/2019 OPAL FLANNERY MD Ot Z98.890 OTHER SPECIFIED POSTPROCEDURAL STATES 04/02/2019 MONICA ROJAS MD Ot 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, UNSPE 04/02/2019 MONICA ROJAS MD Ot E11.9 TYPE 2 DIABETES MELLITUS WITHOUT COMPLIC 04/02/2019 MONICA ROJAS MD Ot E78.5 HYPERLIPIDEMIA, UNSPECIFIED 04/02/2019 MONICA ROJAS MD Ot I10 ESSENTIAL (PRIMARY) HYPERTENSION 04/02/2019 MONICA ROJAS MD Ot Z79.899 OTHER LONG-TERM (CURRENT) DRUG THERAPY 04/02/2019 MONICA ROJAS MD Ot Z93.3 COLOSTOMY STATUS 04/02/2019 MONICA ROJAS MD Ot Z96.41 PRESENCE OF INSULIN PUMP (EXTERNAL) (INT 04/03/2019 URBANO BOWEN MD Ot C85. 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 40 TYPE 2 DIABETES MELLITUS WITH DIABETIC N 04/03/2019 URBANO BOWEN MD, Ot E11. 65 TYPE 2 DIABETES MELLITUS WITH HYPERGLYCE 04/03/2019 URBANO BOWEN MD Ot I13. 0 HYP HRT CHR KDNY DIS W HRT FAIL AND ST 04/03/2019 ANDRÉS MD, URBANO M Ot I25. 10 ATHSCL HEART DISEASE OF [place] CORONARY 04/03/2019 URBANO BOWEN MD, Ot I50. 9 HEART FAILURE, UNSPECIFIED 04/03/2019 URBANO BOWEN MD, Ot K59. 09 OTHER CONSTIPATION 04/03/2019 URBANO BOWEN MD, Ot M06. 9 RHEUMATOID ARTHRITIS, UNSPECIFIED 04/03/2019 URBANO BOWEN MD, Ot N17. 9 ACUTE KIDNEY FAILURE, UNSPECIFIED 04/03/2019 URBANO BOWEN MD, Ot N18. 9 CHRONIC KIDNEY DISEASE, UNSPECIFIED 04/03/2019 URBANO BOWEN MD, Ot R07. 81 PLEURODYNIA 04/03/2019 URBANO BOWEN MD, Ot R58 HEMORRHAGE, NOT ELSEWHERE CLASSIFIED 04/03/2019 URBANO BOWEN MD Ot W01.0XXA FALL SAME LEV FROM SLIP/TRIP W/O STRIKE 04/03/2019 URBANO BOWEN MD Ot Z79. 4 LONG-TERM (CURRENT) USE OF INSULIN 04/03/2019 URBANO BOWEN MD Ot Z79. 82 LONG-TERM (CURRENT) USE OF ASPIRIN 04/03/2019 URBANO BOWEN MD, Ot Z79.899 OTHER LONG-TERM (CURRENT) DRUG THERAPY 04/03/2019 URBANO BOWEN MD, Ot Z82. 49 FAMILY HX OF ISCHEM HEART DIS AND OTH DI 04/03/2019 URBANO BOWEN MD Ot Z83. 3 FAMILY HISTORY OF DIABETES MELLITUS 04/03/2019 URBANO BOWEN MD, Ot Z87.891 PERSONAL HISTORY OF NICOTINE DEPENDENCE 04/03/2019 URBANO BOWEN MD, Ot Z88. 5 ALLERGY STATUS TO NARCOTIC AGENT STATUS 04/03/2019 URBANO BOWEN MD, Ot Z88. 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 04/20/2019 OPAL FLANNERY MD Ot Z98.890 OTHER SPECIFIED POSTPROCEDURAL STATES 04/24/2019 Dean Benoit Roselia L94.8 OTHER SPECIFIED LOCALIZED CONNECTIVE TISSUE DISORDERS 04/26/2019 OPAL FLANNERY MD Ot C85.86 OTH TYPES OF NON-[place] LYMPHOMA, INTRA 04/26/2019 OPAL FLANNERY MD 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 04/26/2019 OPAL FLANNERY MD Ot Z98.890 OTHER SPECIFIED POSTPROCEDURAL STATES 05/30/2019 OPAL FLANNERY MD Ot C85.86 OTH TYPES OF NON-[place] LYMPHOMA, INTRA 05/30/2019 OPAL FLANNERY MD 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 05/30/2019 OPAL FLANNERY MD Ot Z98.890 OTHER SPECIFIED POSTPROCEDURAL STATES 06/14/2019 THERESA HERRERA MD, Ot Z01.81 8 ENCOUNTER FOR OTHER PREPROCEDURAL EXAMIN 06/21/2019 THERESA HERRERA MD Ot E11.9 TYPE 2 DIABETES MELLITUS WITHOUT COMPLIC 06/21/2019 THERESA HERRERA MD Ot E78.00 PURE HYPERCHOLESTEROLEMIA, UNSPECIFIED 06/21/2019 THERESA HERRERA MD Ot K64.0 FIRST DEGREE HEMORRHOIDS 06/21/2019 THERESA HERRERA MD, Ot K64.4 RESIDUAL HEMORRHOIDAL SKIN TAGS 06/21/2019 THERESA HERRERA MD Ot M06.9 RHEUMATOID ARTHRITIS, UNSPECIFIED 06/21/2019 THERESA HERRERA MD Ot M35.00 SICCA SYNDROME, UNSPECIFIED 06/21/2019 THERESA HERRERA MD Ot Z79.4 DECKHAND CLAM DREDGE (CURRENT) USE OF INSULIN 06/21/2019 THERESA HERRERA MD, Ot Z79.82 LONG-TERM (CURRENT) USE OF ASPIRIN 06/21/2019 THERESA HERRERA MD, Ot Z79.89 9 OTHER LONG-TERM (CURRENT) DRUG THERAPY 06/21/2019 THERESA HERRERA MD, Ot Z85.72 PERSONAL HISTORY OF NON-[place] LYMPHOMA 06/21/2019 THERESA HERRERA MD, Ot Z87.89 1 PERSONAL HISTORY OF NICOTINE DEPENDENCE 06/21/2019 THERESA HERRERA MD, Ot Z88.5 ALLERGY STATUS TO NARCOTIC AGENT STATUS 06/21/2019 THERESA HERRERA MD, Ot Z88.8 ALLERGY STATUS TO OTH DRUG/MEDS/BIOL SUB 06/21/2019 THERESA HERRERA MD Ot Z98.0 INTESTINAL BYPASS AND ANASTOMOSIS STATUS 06/23/2019 THERESA HERRERA MD Ot E11.9 TYPE 2 DIABETES MELLITUS WITHOUT COMPLIC 06/23/2019 THERESA HERRERA MD Ot E78.00 PURE HYPERCHOLESTEROLEMIA, UNSPECIFIED 06/23/2019 THERESA HERRERA MD, Ot K64.0 FIRST DEGREE HEMORRHOIDS 06/23/2019 THERESA HERRERA MD, Ot K64.4 RESIDUAL HEMORRHOIDAL SKIN TAGS 06/23/2019 THERESA HERRERA MD, Ot M06.9 RHEUMATOID ARTHRITIS, UNSPECIFIED 06/23/2019 THERESA HERRERA MD, Ot M35.00 SICCA SYNDROME, UNSPECIFIED 06/23/2019 THERESA HERRERA MD, Ot Z79.4 LONG-TERM (CURRENT) USE OF INSULIN 06/23/2019 THERESA HERRERA MD Ot Z79.82 LONG-TERM (CURRENT) USE OF ASPIRIN 06/23/2019 THERESA HERRERA MD, Ot Z79.89 9 OTHER LONG-TERM (CURRENT) DRUG THERAPY 06/23/2019 THERESA HERRERA MD, Ot Z85.72 PERSONAL HISTORY OF NON-[place] LYMPHOMA 06/23/2019 THERESA HERRERA MD, Ot Z87.89 1 PERSONAL HISTORY OF NICOTINE DEPENDENCE 06/23/2019 THERESA HERRERA MD, Ot Z88.5 ALLERGY STATUS TO NARCOTIC AGENT STATUS 06/23/2019 THERESA HERRERA MD Ot Z88.8 ALLERGY STATUS TO OTH DRUG/MEDS/BIOL SUB 06/23/2019 THERESA HERRERA MD Ot Z98.0 INTESTINAL BYPASS AND ANASTOMOSIS STATUS 06/23/2019 THERESA HERRERA MD, Ot E11.9 TYPE 2 DIABETES MELLITUS WITHOUT COMPLIC 06/23/2019 THERESA HERRERA MD Ot E78.00 PURE HYPERCHOLESTEROLEMIA, UNSPECIFIED 06/23/2019 THERESA HERRERA MD Ot K64.0 FIRST DEGREE HEMORRHOIDS 06/23/2019 THERESA HERRERA MD, Ot K64.4 RESIDUAL HEMORRHOIDAL SKIN TAGS 06/23/2019 THERESA HERRERA MD, Ot M06.9 RHEUMATOID ARTHRITIS, UNSPECIFIED 06/23/2019 THERESA HERRERA MD, Ot M35.00 SICCA SYNDROME, UNSPECIFIED 06/23/2019 THERESA HERRERA MD, Ot Z79.4 LONG-TERM (CURRENT) USE OF INSULIN 06/23/2019 THERESA HERRERA MD, Ot Z79.82 DECKHAND CLAM DREDGE (CURRENT) USE OF ASPIRIN 06/23/2019 THERESA HERRERA MD, Ot Z79.89 9 OTHER LONG-TERM (CURRENT) DRUG THERAPY 06/23/2019 THERESA HERRERA MD, Ot Z85.72 PERSONAL HISTORY OF NON-H[place]GKIN LYMPHOMA 06/23/2019 THERESA HERRERA MD, Ot Z87.89 1 PERSONAL HISTORY OF NICOTINE DEPENDENCE 06/23/2019 THERESA HERRERA MD, Ot Z88.5 ALLERGY STATUS TO NARCOTIC AGENT STATUS 06/23/2019 THERESA HERRERA MD, Ot Z88.8 ALLERGY STATUS TO OTH DRUG/MEDS/BIOL SUB 06/23/2019 THERESA HERRERA MD, Ot Z98.0 INTESTINAL BYPASS AND ANASTOMOSIS STATUS 06/26/2019 THERESA HERRERA MD Ot E11.9 TYPE 2 DIABETES MELLITUS WITHOUT COMPLIC 06/26/2019 THERESA HERRERA MD, Ot E78.00 PURE HYPERCHOLESTEROLEMIA, UNSPECIFIED 06/26/2019 THERESA HERRERA MD, Ot K64.0 FIRST DEGREE HEMORRHOIDS 06/26/2019 THERESA HERRERA MD, Ot K64.4 RESIDUAL HEMORRHOIDAL SKIN TAGS 06/26/2019 THERESA HERRERA MD, Ot M06.9 RHEUMATOID ARTHRITIS, UNSPECIFIED 06/26/2019 THERESA HERRERA MD, Ot M35.00 SICCA SYNDROME, UNSPECIFIED 06/26/2019 THERESA HERRERA MD, Ot Z79.4 LONG-TERM (CURRENT) USE OF INSULIN 06/26/2019 THERESA HERRERA MD, Ot Z79.82 LONG-TERM (CURRENT) USE OF ASPIRIN 06/26/2019 THERESA HERRERA MD, Ot Z79.89 9 OTHER LONG-TERM (CURRENT) DRUG THERAPY 06/26/2019 THERESA HERRERA MD, Ot Z85.72 PERSONAL HISTORY OF NON-[place] LYMPHOMA 06/26/2019 THERESA HERRERA MD, Ot Z87.89 1 PERSONAL HISTORY OF NICOTINE DEPENDENCE 06/26/2019 THERESA HERRERA MD, Ot Z88.5 ALLERGY STATUS TO NARCOTIC AGENT STATUS 06/26/2019 THERESA HERRERA MD, Ot Z88.8 ALLERGY STATUS TO OTH DRUG/MEDS/BIOL SUB 06/26/2019 THERESA HERRERA MD, Ot Z98.0 INTESTINAL BYPASS AND ANASTOMOSIS STATUS 07/01/2019 OPAL FLANNERY MD Ot C85.86 OTH TYPES OF NON-[place] LYMPHOMA, INTRA 07/01/2019 OPAL FLANNERY MD 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 07/01/2019 OPAL FLANNERY MD Ot Z98.890 OTHER SPECIFIED POSTPROCEDURAL STATES 07/19/2019 OPAL FLANNERY MD Ot C85.86 OTH TYPES OF NON-[place] LYMPHOMA, INTRA 07/19/2019 OPAL FLANNERY MD 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 07/19/2019 OPAL FLANNERY MD Ot Z98.890 OTHER SPECIFIED POSTPROCEDURAL STATES 07/25/2019 OPAL FLANNERY MD Ot C85.86 OTH TYPES OF NON-[place] LYMPHOMA, INTRA 07/25/2019 OPAL FLANNERY MD 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 90 NON-[place] LYMPHOMA, UNSPECIFIED, UNSPE 08/08/2019 CAROLE INGRAM MD Ot E11. 42 TYPE 2 DIABETES MELLITUS WITH DIABETIC P 08/08/2019 CAROLE INGRAM MD Ot E11. 51 TYPE 2 DIABETES W DIABETIC PERIPHERAL AN 08/08/2019 CAROLE INGRAM MD Ot E78. 5 HYPERLIPIDEMIA, UNSPECIFIED 08/08/2019 CAROLE INGRAM MD Ot I11. 0 HYPERTENSIVE HEART DISEASE WITH HEART FA 08/08/2019 CAROLE INGRAM MD Ot I25. 10 ATHSCL HEART DISEASE OF [place] CORONARY 08/08/2019 CAROLE INGRAM MD, Ot I50. 9 HEART FAILURE, UNSPECIFIED 08/08/2019 CAROLE INGRAM MD, Ot I70. 0 ATHEROSCLEROSIS OF [place] 08/08/2019 CAROLE INGRAM MD, Ot K59. 09 OTHER CONSTIPATION 08/08/2019 CAROLE INGRAM MD, Ot M06. 9 RHEUMATOID ARTHRITIS, UNSPECIFIED 08/08/2019 CAROLE INGRAM MD, Ot Z79. 4 LONG-TERM (CURRENT) USE OF INSULIN 08/08/2019 CAROLE INGRAM MD, Ot Z82. 3 FAMILY HISTORY OF STROKE 08/08/2019 CAROLE INGRAM MD, Ot Z88. 6 ALLERGY STATUS TO ANALGESIC AGENT STATUS 08/08/2019 CAROLE INGRAM MD, Ot Z88. 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 08/24/2019 OPAL FLANNERY MD Ot E11.9 TYPE 2 DIABETES MELLITUS WITHOUT COMPLIC 08/24/2019 OPAL FLANNERY MD Ot Z98.890 OTHER SPECIFIED POSTPROCEDURAL STATES 09/25/2019 Dean Benoit E87.70 FLUID OVERLOAD, UNSPECIFIED 09/25/2019 Dean Benoit J18.9 PNEUMONIA, UNSPECIFIED ORGANISM 09/25/2019 Dean Benoit J20.9 ACUTE BRONCHITIS, UNSPECIFIED 09/25/2019 Dean Benoit N42.1 CONGESTION AND HEMORRHAGE OF PROST[place] 09/25/2019 Dean Benoit R07.81 PLEURODYNIA 09/25/2019 Dean Benoit S40.011A CONTUSION OF RIGHT SHOULDER, INITIAL ENCOUNTER Procedures Code Description Performed By Per sandi On 54.24 PERC UTAN NEEDLE BX OF INTRA- ABDOMINAL MA 04/19/2014 57.32 CYST OSCOPY NEC 04/19/2014 57.94 INSE RT INDWELLING CATH 04/19/2014 Results Test Result Range Complete urinalysis with reflex to cultu re - 03/02/16 14:39 Urine color determination YELLOW NRG Urine clarity determination CLEAR NR G Urine pH measurement by test strip 7 5-9 Specific gravity of urine by test strip 1.010 1.016-1.022 Urine protein assay by test strip, semi-quantitative 2+ NEGATIVE Urine glucose detection by automated test strip 3+ NEGATIVE Erythrocytes detection in urine sediment by light micr oscopy 2+ NEGATIVE Urine ketones detection by automated test strip NE GATIVE NEGATIVE Urine nitrite detection by test strip NEGATIVE NEGATIVE Urine total bilirubin detection by test strip NEGA TIVE NEGATIVE Urine urobilinogen measurement by automated test strip (mass/volume) NORMAL NORMAL Urine leukocyte esterase detection by dipstick NEG ATIVE NEGATIVE Automated urine sediment erythrocyte cou nt by microscopy (number/high power field) [HPF] NRG Automated urine sediment leukocyte count by microscopy (number/high power field) NONE NRG Bacteria detection in urine sediment by light microsco py NEGATIVE NRG Squamous epithelial cells detection in u rine sediment by light microscopy RARE NRG Crystals detection in urine sediment by light microsco py NONE NRG Casts detection in urine sediment [...] 5-14 Serum or plasma urea nitrogen measurement (mass/volume ) 17 mg/dL 7-18 Serum or plasma creatinine measurement (mass/volume) 0.77 mg/dL 0.60-1.30 Serum or plasma urea nitrogen/creatinine mass ratio 22 NRG Serum or plasma creatinine measurement w ith calculation of estimated glomerular filtration rate > NRG Serum or plasma glucose measurement (mass/volume) 195 mg/dL 70-105 Serum or plasma calcium measurement (mass/volume) 8.6 mg/dL 8.5-10.1 Serum or plasma total bilirubin measurement (mass/volu me) 0.5 mg/dL 0.1-1.0 Serum or plasma alkaline phosphatase charissa surement (enzymatic activity/volume) 92 U/L 40-136 Serum or plasma aspartate aminotransfera se measurement (enzymatic activity/volume) 16 U/L 5-34 Serum or plasma alanine aminotransferase measurement (enzymatic activity/volume) 10 U/L 0-55 Serum or plasma protein measurement (mass/volume) 5.8 g/dL 6.4-8.2 Serum or plasma albumin measurement (mass/volume) 3.6 g/dL 3.2-4.5 Complete blood count (CBC) with automate d white blood cell (WBC) differential - 03/02/16 15:00 Blood leukocytes automated count (number/volume) 6.3 10*3/uL 4.3-11.0 Blood erythrocytes automated count (number/volume) 4.78 10*6/uL 4.35-5.85 Venous blood hemoglobin measurement (mass/volume) 12.9 g/dL 13.3-17.7 Blood hematocrit (volume fraction) 40 % 40-54 Automated erythrocyte mean corpuscular volume 84 [ foz_us] 80-99 Automated erythrocyte mean corpuscular h emoglobin (mass per erythrocyte) 27 pg 25-34 Automated erythrocyte mean corpuscular h emoglobin concentration measurement (mass/volume) 32 g/dL 32-36 Automated erythrocyte distribution width ratio 18. 0 % 10.0- 14.5 Automated blood platelet count (count/volume) 198 10*3/uL [...] 10*3 1.0-4.0 Blood monocytes automated count (number/volume) 0. 9 10*3 0.0-1.0 Automated eosinophil count 0.2 10*3/uL 0 .0-0.3 Automated blood basophil count (count/volume) 0.1 10*3/uL 0.0-0.1 CBC with Auto Diff - 03/03/16 11:31 Baso% 1.60 % 0.00-2.50 Eos 0.2 K/uL 0.0-0.7 Eos% 3.2 % 0.0-7.0 Hct 40.8 % 42.0-52.0 Hgb 13.2 g/dL 14.0-17.0 Lym 1.01 K/uL 0.60-3.40 Lym% 13.4 % 10.0-50.0 MCH 27.3 pg 27.0-31.2 MCHC 32.4 g/dL 32.0-36.0 MCV 84.5 fL 80.0-97.0 [place]% 14.3 % 0.0-12.0 MPV 9.7 fL 7.4-10.0 Zhao% 67.5 % 37.0-80.0 Plt 187 K/uL 150-400 RBC 4.83 M/uL 4.20-5.40 RDW 17.9 % 11.6-14.8 WBC 7.55 K/uL 5.00-10.00 Zhao 5.10 K/uL 2.00-6.90 [place] 1.1 K/uL 0.0-0.9 Baso 0.1 K/uL 0.0-0.2 Blood Urea Nitrogen - 03/03/16 11:31 BUN 18 mg/dL 5-25 Creatinine - 03/03/16 11:31 Creat 0.90 mg/dL 0.50-1.50 eGFR 83 mL/min/1.73m2 >59 Urine Culture - 03/03/16 17:16 FINAL CULTURE RESULTS No Growth 48 hours MEDIA PLATED Setup at 18:00 on 03/03/2016 CULTURE SOURCE URINE Complete blood count (CBC) with automate d white blood cell (WBC) differential - 06/06/16 03:05 Blood leukocytes automated count (number/volume) 5.0 10*3/uL 4.3-11.0 Blood erythrocytes automated count (number/volume) 4.46 10*6/uL 4.35-5.85 Venous blood hemoglobin measurement (mass/volume) 12.1 g/dL 13.3-17.7 Blood hematocrit (volume fraction) 37 % 40-54 Automated erythrocyte mean corpuscular volume 83 [ foz_us] 80-99 Automated erythrocyte mean corpuscular h emoglobin (mass per erythrocyte) 27 pg 25-34 Automated erythrocyte mean corpuscular h emoglobin concentration measurement (mass/volume) 33 g/dL 32-36 Automated erythrocyte distribution width ratio 16. 6 % 10.0- 14.5 Automated blood platelet count (count/volume) 228 10*3/uL [...] 10*3 1.0-4.0 Blood monocytes automated count (number/volume) 0. 8 10*3 0.0-1.0 Automated eosinophil count 0.4 10*3/uL 0 .0-0.3 Automated blood basophil count (count/volume) 0.1 10*3/uL 0.0-0.1 Comprehensive metabolic panel - 06/06/16 03:05 Serum or plasma sodium measurement (moles/volume) 143 mmol/L 135-145 Serum or plasma potassium measurement (moles/volume) 3.6 mmol/L 3.6-5.0 Serum or plasma chloride measurement (moles/volume) 109 mmol/L 98-107 Carbon dioxide 23 mmol/L 21-32 Serum or plasma anion gap determination (moles/volume) 11 mmol/L 5-14 Serum or plasma urea nitrogen measurement (mass/volume ) 19 mg/dL 7-18 Serum or plasma creatinine measurement (mass/volume) 0.84 mg/dL 0.60-1.30 Serum or plasma urea nitrogen/creatinine mass ratio 23 NRG Serum or plasma creatinine measurement w ith calculation of estimated glomerular filtration rate > NRG Serum or plasma glucose measurement (mass/volume) 99 mg/dL 70-105 Serum or plasma calcium measurement (mass/volume) 8.5 mg/dL 8.5-10.1 Serum or plasma total bilirubin measurement (mass/volu me) 0.9 mg/dL 0.1-1.0 Serum or plasma alkaline phosphatase charissa surement (enzymatic activity/volume) 82 U/L 40-136 Serum or plasma aspartate aminotransfera se measurement (enzymatic activity/volume) 13 U/L 5-34 Serum or plasma alanine aminotransferase measurement (enzymatic activity/volume) 14 U/L 0-55 Serum or plasma protein measurement (mass/volume) 5.7 g/dL 6.4-8.2 Serum or plasma albumin measurement (mass/volume) 3.4 g/dL 3.2-4.5 Capillary blood glucose measurement by g lucometer (mass/volume) - 06/06/16 03:10 Capillary blood glucose measurement by glucometer (mas s/volume) 85 mg/dL 70-110 Capillary blood glucose measurement by g lucometer (mass/volume) - 06/06/16 04:05 Capillary blood glucose measurement by glucometer (mas s/volume) 75 mg/dL 70-110 Semen free prostate specific antigen (PS A) measurement (units/volume) - 06/18/16 09:35 Prostate specific ag [mass/volume] in serum or plasma 1.30 % 0.00-4.00 BNP - 04/12/17 10:49 BNP 2043.60 pg/ml 0.00-100.00 Automated blood complete blood count (he mogram) panel - 07/14/17 11:37 Blood leukocytes automated count (number/volume) 3.6 10*3/uL 4.3-11.0 Blood erythrocytes automated count (number/volume) 4.65 10*6/uL 4.35-5.85 Venous blood hemoglobin measurement (mass/volume) 14.0 g/dL 13.3-17.7 Blood hematocrit (volume fraction) 42 % 40-54 Automated erythrocyte mean corpuscular volume 90 [ foz_us] 80-99 Automated erythrocyte mean corpuscular h emoglobin (mass per erythrocyte) 30 pg 25-34 Automated erythrocyte mean corpuscular h emoglobin concentration measurement (mass/volume) 33 g/dL 32-36 Automated erythrocyte distribution width ratio 18. 0 % 10.0- 14.5 Automated blood platelet count (count/volume) 187 10*3/uL 130-400 Automated blood platelet mean volume measurement 10.7 [foz_us] 7.4-10.4 PT panel in platelet poor plasma by coag ulation assay - 07/14/17 11:37 Prothrombin time (PT) in platelet poor plasma by coagu lation assay 12.4 s 12.2-14.7 INR in platelet poor plasma or blood by coagulation as say 0.9 0.8-1.4 Activated partial thromboplastin time (a PTT) in platelet poor plasma bycoagulation assay - 07/14/17 11:37 Activated partial thromboplastin time (a PTT) in platelet poor plasma bycoagulation assay 24 s 24-35 Complete urinalysis with reflex to cultu re - 07/14/17 11:37 Urine color determination YELLOW NRG Urine clarity determination CLEAR NR G Urine pH measurement by test strip 7 5-9 Specific gravity of urine by test strip 1.010 1.016-1.022 Urine protein assay by test strip, semi-quantitative 3+ NEGATIVE Urine glucose detection by automated test strip 2+ NEGATIVE Erythrocytes detection in urine sediment by light micr oscopy 2+ NEGATIVE Urine ketones detection by automated test strip NE GATIVE NEGATIVE Urine nitrite detection by test strip NEGATIVE NEGATIVE Urine total bilirubin detection by test strip NEGA TIVE NEGATIVE Urine urobilinogen measurement by automated test strip (mass/volume) NORMAL NORMAL Urine leukocyte esterase detection by dipstick 1+ NEGATIVE Automated urine sediment erythrocyte cou nt by microscopy (number/high power field) [HPF] NRG Automated urine sediment leukocyte count by microscopy (number/high power field) [HPF] NRG Bacteria detection in urine sediment by light microsco py TRACE NRG Squamous epithelial cells detection in u rine sediment by light microscopy RARE NRG Crystals detection in urine sediment by light microsco py NONE NRG Casts detection in urine sediment by light microscopy PRESENT NRG Mucus detection in urine sediment by light microscopy SMALL NRG Complete urinalysis with reflex to culture YES NRG Hyaline casts detection in urine sediment by light niraj roscopy 0-2 NRG Comprehensive metabolic panel - 07/14/17 11:37 Serum or plasma sodium measurement (moles/volume) 139 mmol/L 135-145 Serum or plasma potassium measurement (moles/volume) 4.2 mmol/L 3.6-5.0 Serum or plasma chloride measurement (moles/volume) 103 mmol/L 98-107 Carbon dioxide 26 mmol/L 21-32 Serum or plasma anion gap determination (moles/volume) 10 mmol/L 5-14 Serum or plasma urea nitrogen measurement (mass/volume ) 18 mg/dL 7-18 Serum or plasma creatinine measurement (mass/volume) 0.91 mg/dL 0.60-1.30 Serum or plasma urea nitrogen/creatinine mass ratio 20 NRG Serum or plasma creatinine measurement w ith calculation of estimated glomerular filtration rate > NRG Serum or plasma glucose measurement (mass/volume) 86 mg/dL 70-105 Serum or plasma calcium measurement (mass/volume) 8.9 mg/dL 8.5-10.1 Serum or plasma total bilirubin measurement (mass/volu me) 0.8 mg/dL 0.1-1.0 Serum or plasma alkaline phosphatase charissa surement (enzymatic activity/volume) 85 U/L 40-136 Serum or plasma aspartate aminotransfera se measurement (enzymatic activity/volume) 23 U/L 5-34 Serum or plasma alanine aminotransferase measurement (enzymatic activity/volume) 20 U/L 0-55 Serum or plasma protein measurement (mass/volume) 6.0 g/dL 6.4-8.2 Serum or plasma albumin measurement (mass/volume) 3.5 g/dL 3.2-4.5 Lipid 1996 panel - 07/14/17 11:37 Serum or plasma triglyceride measurement (mass/volume) 58 mg/dL <150 Serum or plasma cholesterol measurement (mass/volume) 178 mg/dL < 200 Serum or plasma cholesterol in HDL measurement (mass/v olume) 63 mg/dL 40-60 Cholesterol in LDL [mass/volume] in serum or plasma by direct assay 102 mg/dL 1-129 Serum or plasma cholesterol in VLDL measurement (mass/ volume) 12 mg/dL 5-40 Bacterial urine culture - 07/14/17 11:37 Bacterial urine culture NG NRG Methicillin resistant Staphylococcus aur eus (MRSA) screening culture - 07/14/17 11:37 Methicillin resistant Staphylococcus aureus (MRSA) scr eening culture NEG NRG Complete urinalysis with reflex to cultu re - 07/28/17 07:24 Urine color determination YELLOW NRG Urine clarity determination CLEAR NR G Urine pH measurement by test strip 6 5-9 Specific gravity of urine by test strip 1.020 1.016-1.022 Urine protein assay by test strip, semi-quantitative 3+ NEGATIVE Urine glucose detection by automated test strip 1+ NEGATIVE Erythrocytes detection in urine sediment by light micr oscopy 3+ NEGATIVE Urine ketones detection by automated test strip 1+ NEGATIVE Urine nitrite detection by test strip NEGATIVE NEGATIVE Urine total bilirubin detection by test strip 1+ NEGATIVE Urine urobilinogen measurement by automated test strip (mass/volume) NORMAL NORMAL Urine leukocyte esterase detection by dipstick 1+ NEGATIVE Automated urine sediment erythrocyte cou nt by microscopy (number/high power field) [HPF] NRG Automated urine sediment leukocyte count by microscopy (number/high power field) [HPF] NRG Bacteria detection in urine sediment by light microsco py TRACE NRG Squamous epithelial cells detection in u rine sediment by light microscopy 0-2 NRG Crystals detection in urine sediment by light microsco py NONE NRG Casts detection in urine sediment by light microscopy NONE NRG Mucus detection in urine sediment by light microscopy MODERATE NRG Complete urinalysis with reflex to culture YES NRG Bacterial urine culture - 07/28/17 07:24 Bacterial urine culture NG NRG Automated blood complete blood count (he mogram) panel - 07/28/17 07:35 Blood leukocytes automated count (number/volume) 4.1 10*3/uL 4.3-11.0 Blood erythrocytes automated count (number/volume) 4.61 10*6/uL 4.35-5.85 Venous blood hemoglobin measurement (mass/volume) 14.1 g/dL 13.3-17.7 Blood hematocrit (volume fraction) 42 % 40-54 Automated erythrocyte mean corpuscular volume 92 [ foz_us] 80-99 Automated erythrocyte mean corpuscular h emoglobin (mass per erythrocyte) 31 pg 25-34 Automated erythrocyte mean corpuscular h emoglobin concentration measurement (mass/volume) 33 g/dL 32-36 Automated erythrocyte distribution width ratio 17. 6 % 10.0- 14.5 Automated blood platelet count (count/volume) 184 10*3/uL 130-400 Automated blood platelet mean volume measurement 10.2 [foz_us] 7.4-10.4 PT panel in platelet poor plasma by coag ulation assay - 07/28/17 07:35 Prothrombin time (PT) in platelet poor plasma by coagu lation assay 13.1 s 12.2-14.7 INR in platelet poor plasma or blood by coagulation as say 1.0 0.8-1.4 Activated partial thromboplastin time (a PTT) in platelet poor plasma bycoagulation assay - 07/28/17 07:35 Activated partial thromboplastin time (a PTT) in platelet poor plasma bycoagulation assay 26 s 24-35 Comprehensive metabolic panel - 07/28/17 07:35 Serum or plasma sodium measurement (moles/volume) 138 mmol/L 135-145 Serum or plasma potassium measurement (moles/volume) 3.9 mmol/L 3.6-5.0 Serum or plasma chloride measurement (moles/volume) 103 mmol/L 98-107 Carbon dioxide 27 mmol/L 21-32 Serum or plasma anion gap determination (moles/volume) 8 mmol/L 5-14 Serum or plasma urea nitrogen measurement (mass/volume ) 22 mg/dL 7-18 Serum or plasma creatinine measurement (mass/volume) 1.10 mg/dL 0.60-1.30 Serum or plasma urea nitrogen/creatinine mass ratio 20 NRG Serum or plasma creatinine measurement w ith calculation of estimated glomerular filtration rate > NRG Serum or plasma glucose measurement (mass/volume) 79 mg/dL 70-105 Serum or plasma calcium measurement (mass/volume) 8.8 mg/dL 8.5-10.1 Serum or plasma total bilirubin measurement (mass/volu me) 1.1 mg/dL 0.1-1.0 Serum or plasma alkaline phosphatase charissa surement (enzymatic activity/volume) 80 U/L 40-136 Serum or plasma aspartate aminotransfera se measurement (enzymatic activity/volume) 25 U/L 5-34 Serum or plasma alanine aminotransferase measurement (enzymatic activity/volume) 19 U/L 0-55 Serum or plasma protein measurement (mass/volume) 6.0 g/dL 6.4-8.2 Serum or plasma albumin measurement (mass/volume) 3.5 g/dL 3.2-4.5 Methicillin resistant Staphylococcus aur eus (MRSA) screening culture - 07/28/17 07:35 Methicillin resistant Staphylococcus aureus (MRSA) scr eening culture NEG NRG Complete blood count (CBC) with automate d white blood cell (WBC) differential - 08/16/18 04:50 Blood leukocytes automated count (number/volume) 7.6 10*3/uL 4.3-11.0 Blood erythrocytes automated count (number/volume) 4.20 10*6/uL 4.35-5.85 Venous blood hemoglobin measurement (mass/volume) 13.4 g/dL 13.3-17.7 Blood hematocrit (volume fraction) 39 % 40-54 Automated erythrocyte mean corpuscular volume 93 [ foz_us] 80-99 Automated erythrocyte mean corpuscular h emoglobin (mass per erythrocyte) 32 pg 25-34 Automated erythrocyte mean corpuscular h emoglobin concentration measurement (mass/volume) 34 g/dL 32-36 Automated erythrocyte distribution width ratio 14. 9 % 10.0- 14.5 Automated blood platelet count (count/volume) 161 10*3/uL 130-400 Automated blood platelet mean volume measurement 11.4 [foz_us] 7.4-10.4 Automated blood neutrophils/100 leukocytes 66 % 42-75 Automated blood lymphocytes/100 leukocytes 12 % 12-44 Blood monocytes/100 leukocytes 18 % 0-12 Automated blood eosinophils/100 leukocytes 2 % 0-10 Automated blood basophils/100 leukocytes 1 % 0-10 Blood neutrophils automated count (number/volume) 5.0 10*3 1.8-7.8 Blood lymphocytes automated count (number/volume) 0.9 10*3 1.0-4.0 Blood monocytes automated count (number/volume) 1. 4 10*3 0.0-1.0 Automated eosinophil count 0.1 10*3/uL 0 .0-0.3 Automated blood basophil count (count/volume) 0.1 10*3/uL 0.0-0.1 PT panel in platelet poor plasma by coag ulation assay - 08/16/18 04:50 Prothrombin time (PT) in platelet poor plasma by coagu lation assay 12.7 s 12.2-14.7 INR in platelet poor plasma or blood by coagulation as say 0.9 0.8-1.4 Activated partial thromboplastin time (a PTT) in platelet poor plasma bycoagulation assay - 08/16/18 04:50 Activated partial thromboplastin time (a PTT) in platelet poor plasma bycoagulation assay 24 s 24-35 Fibrin D-dimer FEU measurement in platel et poor plasma (mass/volume) - 08/16/18 04:50 Fibrin D-dimer FEU measurement in platelet poor plasma (mass/volume) 0.90 ug/mL 0.00-0.49 Comprehensive metabolic panel - 08/16/18 04:50 Serum or plasma sodium measurement (moles/volume) 139 mmol/L 135-145 Serum or plasma potassium measurement (moles/volume) 4.0 mmol/L 3.6-5.0 Serum or plasma chloride measurement (moles/volume) 105 mmol/L 98-107 Carbon dioxide 20 mmol/L 21-32 Serum or plasma anion gap determination (moles/volume) 14 mmol/L 5-14 Serum or plasma urea nitrogen measurement (mass/volume ) 27 mg/dL 7-18 Serum or plasma creatinine measurement (mass/volume) 1.03 mg/dL 0.60-1.30 Serum or plasma urea nitrogen/creatinine mass ratio 26 NRG Serum or plasma creatinine measurement w ith calculation of estimated glomerular filtration rate > NRG Serum or plasma glucose measurement (mass/volume) 118 mg/dL 70-105 Serum or plasma calcium measurement (mass/volume) 9.0 mg/dL 8.5-10.1 Serum or plasma total bilirubin measurement (mass/volu me) 0.8 mg/dL 0.1-1.0 Serum or plasma alkaline phosphatase charissa surement (enzymatic activity/volume) 86 U/L 40-136 Serum or plasma aspartate aminotransfera se measurement (enzymatic activity/volume) 22 U/L 5-34 Serum or plasma alanine aminotransferase measurement (enzymatic activity/volume) 18 U/L 0-55 Serum or plasma protein measurement (mass/volume) 6.1 g/dL 6.4-8.2 Serum or plasma albumin measurement (mass/volume) 3.6 g/dL 3.2-4.5 CALCIUM CORRECTED 9.3 mg/dL 8.5-10.1 Serum or plasma troponin i.cardiac measu rement (mass/volume) - 08/16/18 04:50 Serum or plasma troponin i.cardiac measurement (mass/v olume) < ng/mL <0.028 Blood manual differential performed dete ction - 08/16/18 04:50 Blood monocytes/100 leukocytes 18 % NRG Manual blood segmented neutrophils/100 leukocytes 70 % NRG Manual blood lymphocytes/100 leukocytes 11 % NRG Manual eosinophils/100 leukocytes in nose 1 % NRG Serum or plasma ethanol measurement (mas s/volume) - 08/16/18 04:50 Serum or plasma ethanol measurement (mass/volume) < mg/dL <10 Complete urinalysis with reflex to cultu re - 08/16/18 04:51 Urine color determination YELLOW NRG Urine clarity determination CLEAR NR G Urine pH measurement by test strip 6.5 5-9 Specific gravity of urine by test strip 1.020 1.016-1.022 Urine protein assay by test strip, semi-quantitative 3+ NEGATIVE Urine glucose detection by automated test strip 1+ NEGATIVE Erythrocytes detection in urine sediment by light micr oscopy 2+ NEGATIVE Urine ketones detection by automated test strip 1+ NEGATIVE Urine nitrite detection by test strip NEGATIVE NEGATIVE Urine total bilirubin detection by test strip NEGA TIVE NEGATIVE Urine urobilinogen measurement by automated test strip (mass/volume) NORMAL NORMAL Urine leukocyte esterase detection by dipstick 1+ NEGATIVE Automated urine sediment erythrocyte cou nt by microscopy (number/high power field) [HPF] NRG Automated urine sediment leukocyte count by microscopy (number/high power field) [HPF] NRG Bacteria detection in urine sediment by light microsco py TRACE NRG Squamous epithelial cells detection in u rine sediment by light microscopy RARE NRG Crystals detection in urine sediment by light microsco py NONE NRG Casts detection in urine sediment by light microscopy PRESENT NRG Mucus detection in urine sediment by light microscopy SMALL NRG Complete urinalysis with reflex to culture NO NRG Hyaline casts detection in urine sediment by light niraj roscopy RARE NRG Capillary blood glucose measurement by g lucometer (mass/volume) - 08/16/18 06:00 Capillary blood glucose measurement by glucometer (mas s/volume) 176 mg/dL 70-110 Capillary blood glucose measurement by g lucometer (mass/volume) - 08/16/18 07:29 Capillary blood glucose measurement by glucometer (mas s/volume) 201 mg/dL 70-110 Methicillin resistant Staphylococcus aur eus (MRSA) screening culture - 08/16/18 08:24 Methicillin resistant Staphylococcus aureus (MRSA) scr eening culture NEG NRG Capillary blood glucose measurement by g lucometer (mass/volume) - 08/16/18 10:51 Capillary blood glucose measurement by glucometer (mas s/volume) 152 mg/dL 70-110 Capillary blood glucose measurement by g lucometer (mass/volume) - 08/16/18 14:26 Capillary blood glucose measurement by glucometer (mas s/volume) 261 mg/dL 70-110 Capillary blood glucose measurement by g lucometer (mass/volume) - 08/16/18 17:09 Capillary blood glucose measurement by glucometer (mas s/volume) 269 mg/dL 70-110 Capillary blood glucose measurement by g lucometer (mass/volume) - 08/16/18 21:02 Capillary blood glucose measurement by glucometer (mas s/volume) 187 mg/dL 70-110 Complete blood count (CBC) with automate d white blood cell (WBC) differential - 08/17/18 03:55 Blood leukocytes automated count (number/volume) 4.0 10*3/uL 4.3-11.0 Blood erythrocytes automated count (number/volume) 3.96 10*6/uL 4.35-5.85 Venous blood hemoglobin measurement (mass/volume) 12.6 g/dL 13.3-17.7 Blood hematocrit (volume fraction) 37 % 40-54 Automated erythrocyte mean corpuscular volume 94 [ foz_us] 80-99 Automated erythrocyte mean corpuscular h emoglobin (mass per erythrocyte) 32 pg 25-34 Automated erythrocyte mean corpuscular h emoglobin concentration measurement (mass/volume) 34 g/dL 32-36 Automated erythrocyte distribution width ratio 15. 2 % 10.0- 14.5 Automated blood platelet count (count/volume) 151 10*3/uL 130-400 Automated blood platelet mean volume measurement 10.4 [foz_us] 7.4-10.4 Automated blood neutrophils/100 leukocytes 53 % 42-75 Automated blood lymphocytes/100 leukocytes 14 % 12-44 Blood monocytes/100 leukocytes 24 % 0-12 Automated blood eosinophils/100 leukocytes 6 % 0-10 Automated blood basophils/100 leukocytes 2 % 0-10 Blood neutrophils automated count (number/volume) 2.1 10*3 1.8-7.8 Blood lymphocytes automated count (number/volume) 0.6 10*3 1.0-4.0 Blood monocytes automated count (number/volume) 1. 0 10*3 0.0-1.0 Automated eosinophil count 0.2 10*3/uL 0 .0-0.3 Automated blood basophil count (count/volume) 0.1 10*3/uL 0.0-0.1 Whole blood basic metabolic panel - 08/03 08/21 03:55 Serum or plasma sodium measurement (moles/volume) 137 mmol/L 135-145 Serum or plasma potassium measurement (moles/volume) 3.8 mmol/L 3.6-5.0 Serum or plasma chloride measurement (moles/volume) 104 mmol/L 98-107 Carbon dioxide 21 mmol/L 21-32 Serum or plasma anion gap determination (moles/volume) 12 mmol/L 5-14 Serum or plasma urea nitrogen measurement (mass/volume ) 20 mg/dL 7-18 Serum or plasma creatinine measurement (mass/volume) 0.96 mg/dL 0.60-1.30 Serum or plasma urea nitrogen/creatinine mass ratio 21 NRG Serum or plasma creatinine measurement w ith calculation of estimated glomerular filtration rate > NRG Serum or plasma glucose measurement (mass/volume) 208 mg/dL 70-105 Serum or plasma calcium measurement (mass/volume) 8.8 mg/dL 8.5-10.1 Serum or plasma phosphate measurement (m ass/volume) - 08/17/18 03:55 Serum or plasma phosphate measurement (mass/volume) 3.0 mg/dL 2.3-4.7 Magnesium - 08/17/18 03:55 Magnesium 1.8 mg/dL 1.8-2.4 Lipid 1996 panel - 08/17/18 03:55 Serum or plasma triglyceride measurement (mass/volume) 59 mg/dL <150 Serum or plasma cholesterol measurement (mass/volume) 140 mg/dL < 200 Serum or plasma cholesterol in HDL measurement (mass/v olume) 48 mg/dL 40-60 Cholesterol in LDL [mass/volume] in serum or plasma by direct assay 85 mg/dL 1-129 Serum or plasma cholesterol in VLDL measurement (mass/ volume) 12 mg/dL 5-40 Capillary blood glucose measurement by g lucometer (mass/volume) - 08/17/18 08:43 Capillary blood glucose measurement by glucometer (mas s/volume) 220 mg/dL 70-110 Ammonia - 08/17/18 10:10 Ammonia 21 umol/L 11-32 Capillary blood glucose measurement by g lucometer (mass/volume) - 08/17/18 12:19 Capillary blood glucose measurement by glucometer (mas s/volume) 129 mg/dL 70-110 Capillary blood glucose measurement by g lucometer (mass/volume) - 08/17/18 16:56 Capillary blood glucose measurement by glucometer (mas s/volume) 164 mg/dL 70-110 Capillary blood glucose measurement by g lucometer (mass/volume) - 08/17/18 20:58 Capillary blood glucose measurement by glucometer (mas s/volume) 306 mg/dL 70-110 Complete blood count (CBC) with automate d white blood cell (WBC) differential - 08/18/18 05:31 Blood leukocytes automated count (number/volume) 5.1 10*3/uL 4.3-11.0 Blood erythrocytes automated count (number/volume) 3.99 10*6/uL 4.35-5.85 Venous blood hemoglobin measurement (mass/volume) 12.6 g/dL 13.3-17.7 Blood hematocrit (volume fraction) 38 % 40-54 Automated erythrocyte mean corpuscular volume 94 [ foz_us] 80-99 Automated erythrocyte mean corpuscular h emoglobin (mass per erythrocyte) 32 pg 25-34 Automated erythrocyte mean corpuscular h emoglobin concentration measurement (mass/volume) 34 g/dL 32-36 Automated erythrocyte distribution width ratio 14. 9 % 10.0- 14.5 Automated blood platelet count (count/volume) 135 10*3/uL 130-400 Automated blood platelet mean volume measurement 10.7 [foz_us] 7.4-10.4 Automated blood neutrophils/100 leukocytes 64 % 42-75 Automated blood lymphocytes/100 leukocytes 12 % 12-44 Blood monocytes/100 leukocytes 20 % 0-12 Automated blood eosinophils/100 leukocytes 3 % 0-10 Automated blood basophils/100 leukocytes 1 % 0-10 Blood neutrophils automated count (number/volume) 3.3 10*3 1.8-7.8 Blood lymphocytes automated count (number/volume) 0.6 10*3 1.0-4.0 Blood monocytes automated count (number/volume) 1. 0 10*3 0.0-1.0 Automated eosinophil count 0.1 10*3/uL 0 .0-0.3 Automated blood basophil count (count/volume) 0.1 10*3/uL 0.0-0.1 Comprehensive metabolic panel - 08/18/18 05:31 Serum or plasma sodium measurement (moles/volume) 137 mmol/L 135-145 Serum or plasma potassium measurement (moles/volume) 3.8 mmol/L 3.6-5.0 Serum or plasma chloride measurement (moles/volume) 105 mmol/L 98-107 Carbon dioxide 21 mmol/L 21-32 Serum or plasma anion gap determination (moles/volume) 11 mmol/L 5-14 Serum or plasma urea nitrogen measurement (mass/volume ) 22 mg/dL 7-18 Serum or plasma creatinine measurement (mass/volume) 1.07 mg/dL 0.60-1.30 Serum or plasma urea nitrogen/creatinine mass ratio 21 NRG Serum or plasma creatinine measurement w ith calculation of estimated glomerular filtration rate > NRG Serum or plasma glucose measurement (mass/volume) 188 mg/dL 70-105 Serum or plasma calcium measurement (mass/volume) 8.4 mg/dL 8.5-10.1 Serum or plasma total bilirubin measurement (mass/volu me) 1.1 mg/dL 0.1-1.0 Serum or plasma alkaline phosphatase charissa surement (enzymatic activity/volume) 78 U/L 40-136 Serum or plasma aspartate aminotransfera se measurement (enzymatic activity/volume) 46 U/L 5-34 Serum or plasma alanine aminotransferase measurement (enzymatic activity/volume) 27 U/L 0-55 Serum or plasma protein measurement (mass/volume) 5.4 g/dL 6.4-8.2 Serum or plasma albumin measurement (mass/volume) 3.1 g/dL 3.2-4.5 CALCIUM CORRECTED 9.1 mg/dL 8.5-10.1 Capillary blood glucose measurement by g lucometer (mass/volume) - 08/18/18 06:04 Capillary blood glucose measurement by glucometer (mas s/volume) 173 mg/dL 70-110 Comprehensive metabolic panel - 01/06/19 10:30 Serum or plasma sodium measurement (moles/volume) 137 mmol/L 135-145 Serum or plasma potassium measurement (moles/volume) 4.0 mmol/L 3.6-5.0 Serum or plasma chloride measurement (moles/volume) 100 mmol/L 98-107 Carbon dioxide 27 mmol/L 21-32 Serum or plasma anion gap determination (moles/volume) 10 mmol/L 5-14 Serum or plasma urea nitrogen measurement (mass/volume ) 23 mg/dL 7-18 Serum or plasma creatinine measurement (mass/volume) 1.24 mg/dL 0.60-1.30 Serum or plasma urea nitrogen/creatinine mass ratio 19 NRG Serum or plasma creatinine measurement w ith calculation of estimated glomerular filtration rate 57 NRG Serum or plasma glucose measurement (mass/volume) 231 mg/dL 70-105 Serum or plasma calcium measurement (mass/volume) 9.5 mg/dL 8.5-10.1 Serum or plasma total bilirubin measurement (mass/volu me) 1.0 mg/dL 0.1-1.0 Serum or plasma alkaline phosphatase charissa surement (enzymatic activity/volume) 91 U/L 40-136 Serum or plasma aspartate aminotransfera se measurement (enzymatic activity/volume) 17 U/L 5-34 Serum or plasma alanine aminotransferase measurement (enzymatic activity/volume) 17 U/L 0-55 Serum or plasma protein measurement (mass/volume) 6.6 g/dL 6.4-8.2 Serum or plasma albumin measurement (mass/volume) 3.7 g/dL 3.2-4.5 CALCIUM CORRECTED 9.7 mg/dL 8.5-10.1 Complete blood count (CBC) with automate d white blood cell (WBC) differential - 04/02/19 08:26 Blood leukocytes automated count (number/volume) 11.3 10*3/uL 4.3-11.0 Blood erythrocytes automated count (number/volume) 4.90 10*6/uL 4.35-5.85 Venous blood hemoglobin measurement (mass/volume) 15.8 g/dL 13.3-17.7 Blood hematocrit (volume fraction) 47 % 40-54 Automated erythrocyte mean corpuscular volume 96 [ foz_us] 80-99 Automated erythrocyte mean corpuscular h emoglobin (mass per erythrocyte) 32 pg 25-34 Automated erythrocyte mean corpuscular h emoglobin concentration measurement (mass/volume) 34 g/dL 32-36 Automated erythrocyte distribution width ratio 13. 7 % 10.0- 14.5 Automated blood platelet count (count/volume) 218 10*3/uL 130-400 Automated blood platelet mean volume measurement 11.4 [foz_us] 7.4-10.4 Automated blood neutrophils/100 leukocytes 76 % 42-75 Automated blood lymphocytes/100 leukocytes 15 % 12-44 Blood monocytes/100 leukocytes 8 % 0-12 Automated blood eosinophils/100 leukocytes 1 % 0-10 Automated blood basophils/100 leukocytes 0 % 0-10 Blood neutrophils automated count (number/volume) 8.6 10*3 1.8-7.8 Blood lymphocytes automated count (number/volume) 1.7 10*3 1.0-4.0 Blood monocytes automated count (number/volume) 0. 9 10*3 0.0-1.0 Automated eosinophil count 0.1 10*3/uL 0 .0-0.3 Automated blood basophil count (count/volume) 0.0 10*3/uL 0.0-0.1 PT panel in platelet poor plasma by coag ulation assay - 04/02/19 08:26 Prothrombin time (PT) in platelet poor plasma by coagu lation assay 12.9 s 12.2-14.7 INR in platelet poor plasma or blood by coagulation as say 0.9 0.8-1.4 Activated partial thromboplastin time (a PTT) in platelet poor plasma bycoagulation assay - 04/02/19 08:26 Activated partial thromboplastin time (a PTT) in platelet poor plasma bycoagulation assay 22 s 24-35 Comprehensive metabolic panel - 04/02/19 08:26 Serum or plasma sodium measurement (moles/volume) 133 mmol/L 135-145 Serum or plasma potassium measurement (moles/volume) 4.6 mmol/L 3.6-5.0 Serum or plasma chloride measurement (moles/volume) 94 mmol/L 98-107 Carbon dioxide 14 mmol/L 21-32 Serum or plasma anion gap determination (moles/volume) 25 mmol/L 5-14 Serum or plasma urea nitrogen measurement (mass/volume ) 56 mg/dL 7-18 Serum or plasma creatinine measurement (mass/volume) 2.30 mg/dL 0.60-1.30 Serum or plasma urea nitrogen/creatinine mass ratio 24 NRG Serum or plasma creatinine measurement w ith calculation of estimated glomerular filtration rate 28 NRG Serum or plasma glucose measurement (mass/volume) 587 mg/dL 70-105 Serum or plasma calcium measurement (mass/volume) 9.4 mg/dL 8.5-10.1 Serum or plasma total bilirubin measurement (mass/volu me) 1.1 mg/dL 0.1-1.0 Serum or plasma alkaline phosphatase charissa surement (enzymatic activity/volume) 109 U/L 40-136 Serum or plasma aspartate aminotransfera se measurement (enzymatic activity/volume) 20 U/L 5-34 Serum or plasma alanine aminotransferase measurement (enzymatic activity/volume) 17 U/L 0-55 Serum or plasma protein measurement (mass/volume) 6.8 g/dL 6.4-8.2 Serum or plasma albumin measurement (mass/volume) 3.8 g/dL 3.2-4.5 CALCIUM CORRECTED 9.6 mg/dL 8.5-10.1 Magnesium - 04/02/19 08:26 Magnesium 2.1 mg/dL 1.6-2.4 Serum or plasma lithium measurement (mol es/volume) - 04/02/19 08:26 BNP PT 107.6 pg/mL <100.0 Myoglobin, serum - 04/02/19 08:26 Myoglobin, serum 117.0 ng/mL 10.0-92.0 Serum or plasma troponin i.cardiac measu rement (mass/volume) - 04/02/19 08:26 Serum or plasma troponin i.cardiac measurement (mass/v olume) < ng/mL <0.028 Capillary blood glucose measurement by g lucometer (mass/volume) - 04/02/19 09:31 Capillary blood glucose measurement by glucometer (mas s/volume) 419 mg/dL 70-110 Capillary blood glucose measurement by g lucometer (mass/volume) - 04/02/19 10:40 Capillary blood glucose measurement by glucometer (mas s/volume) 299 mg/dL 70-110 Serum or plasma troponin i.cardiac measu rement (mass/volume) - 04/02/19 14:57 Serum or plasma troponin i.cardiac measurement (mass/v olume) < ng/mL <0.028 Capillary blood glucose measurement by g lucometer (mass/volume) - 04/02/19 16:19 Capillary blood glucose measurement by glucometer (mas s/volume) 157 mg/dL 70-110 Capillary blood glucose measurement by g lucometer (mass/volume) - 04/02/19 20:40 Capillary blood glucose measurement by glucometer (mas s/volume) 87 mg/dL 70-110 Serum or plasma troponin i.cardiac measu rement (mass/volume) - 04/02/19 20:41 Serum or plasma troponin i.cardiac measurement (mass/v olume) < ng/mL <0.028 Complete blood count (CBC) with automate d white blood cell (WBC) differential - 04/03/19 02:50 Blood leukocytes automated count (number/volume) 7.3 10*3/uL 4.3-11.0 Blood erythrocytes automated count (number/volume) 4.21 10*6/uL 4.35-5.85 Venous blood hemoglobin measurement (mass/volume) 13.7 g/dL 13.3-17.7 Blood hematocrit (volume fraction) 40 % 40-54 Automated erythrocyte mean corpuscular volume 95 [ foz_us] 80-99 Automated erythrocyte mean corpuscular h emoglobin (mass per erythrocyte) 33 pg 25-34 Automated erythrocyte mean corpuscular h emoglobin concentration measurement (mass/volume) 34 g/dL 32-36 Automated erythrocyte distribution width ratio 13. 3 % 10.0- 14.5 Automated blood platelet count (count/volume) 194 10*3/uL 130-400 Automated blood platelet mean volume measurement 10.5 [foz_us] 7.4-10.4 Automated blood neutrophils/100 leukocytes 65 % 42-75 Automated blood lymphocytes/100 leukocytes 21 % 12-44 Blood monocytes/100 leukocytes 13 % 0-12 Automated blood eosinophils/100 leukocytes 1 % 0-10 Automated blood basophils/100 leukocytes 0 % 0-10 Blood neutrophils automated count (number/volume) 4.8 10*3 1.8-7.8 Blood lymphocytes automated count (number/volume) 1.5 10*3 1.0-4.0 Blood monocytes automated count (number/volume) 1. 0 10*3 0.0-1.0 Automated eosinophil count 0.1 10*3/uL 0 .0-0.3 Automated blood basophil count (count/volume) 0.0 10*3/uL 0.0-0.1 Comprehensive metabolic panel - 04/03/19 02:50 Serum or plasma sodium measurement (moles/volume) 142 mmol/L 135-145 Serum or plasma potassium measurement (moles/volume) 3.5 mmol/L 3.6-5.0 Serum or plasma chloride measurement (moles/volume) 109 mmol/L 98-107 Carbon dioxide 18 mmol/L 21-32 Serum or plasma anion gap determination (moles/volume) 15 mmol/L 5-14 Serum or plasma urea nitrogen measurement (mass/volume ) 42 mg/dL 7-18 Serum or plasma creatinine measurement (mass/volume) 1.37 mg/dL 0.60-1.30 Serum or plasma urea nitrogen/creatinine mass ratio 31 NRG Serum or plasma creatinine measurement w ith calculation of estimated glomerular filtration rate 51 NRG Serum or plasma glucose measurement (mass/volume) 59 mg/dL 70-105 Serum or plasma calcium measurement (mass/volume) 7.9 mg/dL 8.5-10.1 Serum or plasma total bilirubin measurement (mass/volu me) 0.7 mg/dL 0.1-1.0 Serum or plasma alkaline phosphatase charissa surement (enzymatic activity/volume) 84 U/L 40-136 Serum or plasma aspartate aminotransfera se measurement (enzymatic activity/volume) 15 U/L 5-34 Serum or plasma alanine aminotransferase measurement (enzymatic activity/volume) 13 U/L 0-55 Serum or plasma protein measurement (mass/volume) 5.6 g/dL 6.4-8.2 Serum or plasma albumin measurement (mass/volume) 3.2 g/dL 3.2-4.5 CALCIUM CORRECTED 8.5 mg/dL 8.5-10.1 Lipid 1996 panel - 04/03/19 02:50 Serum or plasma triglyceride measurement (mass/volume) 107 mg/dL <150 Serum or plasma cholesterol measurement (mass/volume) 169 mg/dL < 200 Serum or plasma cholesterol in HDL measurement (mass/v olume) 33 mg/dL 40-60 Cholesterol in LDL [mass/volume] in serum or plasma by direct assay 125 mg/dL 1-129 Serum or plasma cholesterol in VLDL measurement (mass/ volume) 21 mg/dL 5-40 Capillary blood glucose measurement by g lucometer (mass/volume) - 04/03/19 04:51 Capillary blood glucose measurement by glucometer (mas s/volume) 103 mg/dL 70-110 Capillary blood glucose measurement by g lucometer (mass/volume) - 04/03/19 07:30 Capillary blood glucose measurement by glucometer (mas s/volume) 145 mg/dL 70-110 Capillary blood glucose measurement by g lucometer (mass/volume) - 04/03/19 10:58 Capillary blood glucose measurement by glucometer (mas s/volume) 215 mg/dL 70-110 Capillary blood glucose measurement by g lucometer (mass/volume) - 04/03/19 15:08 Capillary blood glucose measurement by glucometer (mas s/volume) 316 mg/dL 70-110 Capillary blood glucose measurement by g lucometer (mass/volume) - 04/03/19 18:32 Capillary blood glucose measurement by glucometer (mas s/volume) 367 mg/dL 70-110 Capillary blood glucose measurement by g lucometer (mass/volume) - 04/03/19 21:24 Capillary blood glucose measurement by glucometer (mas s/volume) 296 mg/dL 70-110 Automated blood complete blood count (he mogram) panel - 08/02/19 07:39 Blood leukocytes automated count (number/volume) 5.2 10*3/uL 4.3-11.0 Blood erythrocytes automated count (number/volume) 4.58 10*6/uL 4.35-5.85 Venous blood hemoglobin measurement (mass/volume) 14.4 g/dL 13.3-17.7 Blood hematocrit (volume fraction) 43 % 40-54 Automated erythrocyte mean corpuscular volume 95 [ foz_us] 80-99 Automated erythrocyte mean corpuscular h emoglobin (mass per erythrocyte) 31 pg 25-34 Automated erythrocyte mean corpuscular h emoglobin concentration measurement (mass/volume) 33 g/dL 32-36 Automated erythrocyte distribution width ratio 13. 4 % 10.0- 14.5 Automated blood platelet count (count/volume) 181 10*3/uL 130-400 Automated blood platelet mean volume measurement 10.4 [foz_us] 7.4-10.4 PT panel in platelet poor plasma by coag ulation assay - 08/02/19 07:39 Prothrombin time (PT) in platelet poor plasma by coagu lation assay 12.5 s 12.2-14.7 INR in platelet poor plasma or blood by coagulation as say 0.9 0.8-1.4 Activated partial thromboplastin time (a PTT) in platelet poor plasma bycoagulation assay - 08/02/19 07:39 Activated partial thromboplastin time (a PTT) in platelet poor plasma bycoagulation assay 24 s 24-35 Comprehensive metabolic panel - 08/02/19 07:39 Serum or plasma sodium measurement (moles/volume) 137 mmol/L 135-145 Serum or plasma potassium measurement (moles/volume) 3.9 mmol/L 3.6-5.0 Serum or plasma chloride measurement (moles/volume) 103 mmol/L 98-107 Carbon dioxide 24 mmol/L 21-32 Serum or plasma anion gap determination (moles/volume) 10 mmol/L 5-14 Serum or plasma urea nitrogen measurement (mass/volume ) 30 mg/dL 7-18 Serum or plasma creatinine measurement (mass/volume) 1.46 mg/dL 0.60-1.30 Serum or plasma urea nitrogen/creatinine mass ratio 21 NRG Serum or plasma creatinine measurement w ith calculation of estimated glomerular filtration rate 47 NRG Serum or plasma glucose measurement (mass/volume) 223 mg/dL 70-105 Serum or plasma calcium measurement (mass/volume) 9.0 mg/dL 8.5-10.1 Serum or plasma total bilirubin measurement (mass/volu me) 0.7 mg/dL 0.1-1.0 Serum or plasma alkaline phosphatase charissa surement (enzymatic activity/volume) 90 U/L 40-136 Serum or plasma aspartate aminotransfera se measurement (enzymatic activity/volume) 21 U/L 5-34 Serum or plasma alanine aminotransferase measurement (enzymatic activity/volume) 12 U/L 0-55 Serum or plasma protein measurement (mass/volume) 6.3 g/dL 6.4-8.2 Serum or plasma albumin measurement (mass/volume) 3.6 g/dL 3.2-4.5 CALCIUM CORRECTED 9.3 mg/dL 8.5-10.1 Lipid 1996 panel - 08/02/19 07:39 Serum or plasma triglyceride measurement (mass/volume) 69 mg/dL <150 Serum or plasma cholesterol measurement (mass/volume) 195 mg/dL < 200 Serum or plasma cholesterol in HDL measurement (mass/v olume) 65 mg/dL 40-60 Cholesterol in LDL [mass/volume] in serum or plasma by direct assay 132 mg/dL 1-129 Serum or plasma cholesterol in VLDL measurement (mass/ volume) 14 mg/dL 5-40 Methicillin resistant Staphylococcus aur eus (MRSA) screening culture - 08/02/19 07:39 Methicillin resistant Staphylococcus aureus (MRSA) scr eening culture NEG NRG Complete urinalysis with reflex to cultu re - 08/02/19 07:40 Urine color determination YELLOW NRG Urine clarity determination CLEAR NR G Urine pH measurement by test strip 6.0 5-9 Specific gravity of urine by test strip >= 1.016-1.022 Urine protein assay by test strip, semi-quantitative 2+ NEGATIVE Urine glucose detection by automated test strip 3+ NEGATIVE Erythrocytes detection in urine sediment by light micr oscopy 1+ NEGATIVE Urine ketones detection by automated test strip NE GATIVE NEGATIVE Urine nitrite detection by test strip NEGATIVE NEGATIVE Urine total bilirubin detection by test strip NEGA TIVE NEGATIVE Urine urobilinogen measurement by automated test strip (mass/volume) 0.2 mg/dL < = 1.0 Urine leukocyte esterase detection by dipstick NEG ATIVE NEGATIVE Automated urine sediment erythrocyte cou nt by microscopy (number/high power field) [HPF] NRG Automated urine sediment leukocyte count by microscopy (number/high power field) NONE NRG Bacteria detection in urine sediment by light microsco py NEGATIVE NRG Squamous epithelial cells detection in u rine sediment by light microscopy NONE NRG Crystals detection in urine sediment by light microsco py NONE NRG Casts detection in urine sediment by light microscopy PRESENT NRG Mucus detection in urine sediment by light microscopy NEGATIVE NRG Complete urinalysis with reflex to culture NO NRG Hyaline casts detection in urine sediment by light niraj roscopy RARE NRG [facility] - 09/25/19 09:07 Anion Gap 15 6-14 BUN 28 mg/dL 5-25 Calcium 9.3 mg/dL 8.3-10.4 Chloride 102 mmol/L 95-114 CO2 25 mEq/L 22-33 Creat 1.70 mg/dL 0.50-1.50 eGFR 40 mL/min/1.73m2 >59 Glucose 237 mg/dL 70-110 Osmo 297 280-295 Potassium 4.2 mmol/L 3.5-5.3 Sodium 138 mmol/L 134-148 Encounters ACCT No. Visit Date/Time Discharge Status Pt. Type Provider Facility Loc./Unit Complaint [id number] 01/18/2017 09:00:00 01/18/2017 23:59: 59 CLS [facility] [id number] 03/02/2016 15:50:00 Document Registration [id number] 08/02/2019 07:10:00 16:00:00 DIS Outpatient NATALY JURADO, CAROLE Montoya [facility] CATH ABN LROENA,PAD,CHF,CAD,DM [id number] 07/24/2019 09:26:00 23:59:59 CLS Outpatient OPAL FLANNERY MD [facility] ONC [id number] 07/17/2019 13:26:00 020 00:01:00 DIS Outpatient OPAL FLANNERY MD [facility] ONC [id number] 06/21/2019 09:31:00 020 12:30:00 DIS Outpatient THERESA HERRERA MD [facility] ENDO CHANGE IN BOWEL HABITS/CONSTIPATION [id number] 06/14/2019 06:00:00 12:31:00 DIS Outpatient THERESA HERRERA MD Via [facility] PREOP COLONOSCOPY [id number] 04/13/2019 08:54:00 00:01:00 DIS Outpatient ALMA DELIA JURADO, OPAL perez [facility] ONC [id number] 04/06/2019 05:32:00 23:59:59 CLS Outpatient THERESA HERRERA MD Via [facility] PREOP COLONOSCOPY [id number] 04/02/2019 10:35:00 23:10:00 DIS Outpatient URBANO BOWEN MD Via [facility] ICU CP R/O ACS, HYPERGLYCEM IA, RICHARD [id number] 01/06/2019 10:12:00 23:59:59 CLS Outpatient JOSSELINE SNIDER MD [facility] RAD LYMPHOMA,DIFFUSE,INTRAPELVIC LYMPH NODES [id number] 08/16/2018 07:09:00 10:35:00 DIS Inpatient SHELIA JURADO, ITALIA Abdalla [facility] 4TH GLUCOSE ISSUES [id number] 07/04/2018 09:00:00 23:59:59 CLS Preadmit CAROLE INGRAM MD Via [facility] CARD CHF,CHEST PAIN SYNDROME,DIABETES,SINGER [id number] 03/01/2018 19:00:00 018 20:45:00 DIS Emergency JUAN ANTONIO DO, ETTA K Vi a [facility] ER CUT ABOVE R EYE [id number] 07/28/2017 07:11:00 13:30:00 DIS Outpatient CAROLE INGRAM MD Via [facility] CATH CHF,SEVERE MR,MVP,DM [id number] 07/14/2017 10:50:00 23:59:59 CLS Outpatient CAROLE INGRAM MD Via [facility] CHF [id number] 07/14/2017 10:45:00 018 23:59:59 CLS Outpatient CAROLE INGRAM MD Via [facility] CARD I50.9 CHF [id number] 12/01/2016 00:12:00 017 23:59:59 CLS Preadmit MONICA ROJAS MD Via [facility] ONC [id number] 10/28/2016 13:01:00 017 00:01:00 DIS Outpatient MONICA ROJAS MD [facility] ONC [id number] 08/04/2016 10:48:00 017 00:01:00 DIS Outpatient MONICA ROJAS MD [facility] ONC [id number] 07/27/2016 09:44:00 017 23:59:59 CLS Outpatient MONICA ROJAS MD [facility] RAD C83.33 [id number] 06/18/2016 10:12:00 017 23:59:59 CLS Outpatient Lindsay CRONIN MD Via [facility] LAB [id number] 06/06/2016 02:51:00 017 04:20:00 DIS Emergency GLORIA CALERO MD Via [facility] ER LOW BLOOD SUGAR [id number] 04/16/2016 09:29:00 017 00:01:00 DIS Outpatient MONICA ROJAS MD, V [facility] ONC [id number] 03/18/2016 08:21:00 016 23:59:59 CLS Outpatient CAROLE INGRAM MD Via [facility] CARD CHEST PAIN SYNDROME [id number] 03/02/2016 14:11:00 016 16:50:00 DIS Emergency ITALIA BASS MD Via [facility] ER LEFT FLANK PAIN [id number] 03/02/2016 15:40:00 15:40:00 CAN Emergency ITALIA BASS MD Via [facility] ER [id number] 02/20/2016 07:50:00 016 23:59:59 CLS Outpatient CAROLE INGRAM MD Via [facility] CARD CHEST PAIN SYNDROME [id number] 01/21/2016 07:58:00 23:59:59 CLS Outpatient MIO RODRIGUEZ APRN Via [facility] RAD DIFFUSE LARGE B CELL LYMPHOMA [id number] 12/12/2015 10:53:00 07:59:00 DIS Outpatient MONICA ROJAS MD [facility] ONC [id number] 11/25/2015 13:44:00 016 23:59:59 CLS Outpatient MONICA ROJAS MD [facility] RAD [id number] 10/31/2015 13:26:00 00:01:00 DIS Outpatient MONICA ROJAS MD [facility] ONC [id number] 08/16/2015 13:09:00 016 23:59:59 CLS Outpatient MONICA ROJAS MD [facility] RAD SEVERE RUQ PAIN ADBOMIN AL PAIN [id number] 08/07/2015 13:56:00 016 00:01:00 DIS Outpatient MONICA ROJAS MD [facility] ONC [id number] 07/17/2015 07:25:00 016 23:59:59 CLS Outpatient CAROLE INGRAM MD Via [facility] LAB MR,DIABETES,CHEST PAIN SYNDROME [id number] 07/16/2015 09:23:00 016 23:59:59 CLS Outpatient CAROLE INGRAM MD Via [facility] CARD CHEST PAIN SYNDROME,MR, DIABETES MALTOSIS TYPE 2 [id number] 07/02/2015 07:44:00 016 23:59:59 CLS Outpatient MONICA ROJAS MD [facility] RAD MALIGNANT LYMPHOMA,DIFF USED NON- [place] LYMPHOMA [id number] 06/27/2015 11:04:00 016 23:59:59 CLS Outpatient MONICA ROJAS MD [facility] CARD MALIGNANT LYMPHOMA,DIFF USED NON- [place] LYMPHOMA [id number] 06/11/2015 08:35:00 016 23:59:59 CLS Outpatient MONICA ROJAS MD [facility] RAD NON [place] LYMPOMA LA RGE CELL [id number] 03/20/2015 09:00:00 016 00:01:00 DIS Outpatient MONICA ROJAS MD [facility] ONC [id number] 03/08/2015 08:45:00 015 23:59:59 CLS Outpatient MONICA ROJAS MD [facility] RAD DIFFUSED NON H[place]KINS L YMPHOMA [id number] 11/01/2014 15:34:00 015 00:01:00 DIS Outpatient MONICA ROJAS MD [facility] ONC [id number] 10/09/2014 09:28:00 015 23:59:59 CLS Outpatient NATANAEL GALVAN Via [facility] ONC [id number] 09/10/2014 09:50:00 015 23:59:59 CLS Outpatient MONICA ROJAS MD [facility] RAD NONHODGKINS LYMPHOMA, RESTAGING,DIZZINESS [id number] 08/29/2014 15:26:00 015 00:01:00 DIS Outpatient MONICA ROJAS MD [facility] ONC [id number] 07/25/2014 11:33:00 015 12:30:00 DIS Outpatient NILO ALCALA MD Via [facility] WOUNDCARE [id number] 07/25/2014 10:21:00 015 23:59:59 CLS Outpatient MONICA ROJAS MD [facility] RAD LYMPHOMA [id number] 05/21/2014 16:31:00 015 23:59:59 CLS Outpatient BRANDO CAZARES MD Via [facility] HH UTI [id number] 04/18/2014 18:00:00 015 14:00:00 DIS Inpatient CRYSTAL JURADO, MONICA hair [facility] SURGICAL PELVIC MASS WITH RIGHT URETERAL OBSTRUCTION [id number] 04/18/2014 08:19:00 015 23:59:59 CLS Outpatient KEREN ALBERTO MD Via [facility] RAD PELVIC PAIN [id number] 04/12/2014 08:23:00 015 23:59:59 CLS Outpatient KEREN ALBERTO MD Via [facility] LAB PELVIC PAIN [id number] 03/26/2014 16:25:00 014 18:20:00 DIS Emergency MANPREET OVERTON [employer]IST Via [facility] ER DIFFICULTY URINATING [id number] 02/22/2014 06:49:00 014 23:59:59 CLS Outpatient JENNIFER DOMINGUEZ [employer] Via [facility] RAD NECK MASS [id number] 08/15/2013 08:21:00 014 10:25:00 DIS Emergency JUAN ANTONIO , ETTA Quevedo a [facility] ER BLOOD IN URINE [id number] 08/01/2013 07:00:00 014 11:20:00 DIS Outpatient KEREN ALBERTO MD Via [facility] SDC BPH [id number] 07/27/2013 11:47:00 014 23:59:59 CLS Outpatient KEREN ALBERTO MD Via [facility] PREOP BPH [id number] 10/28/2012 07:40:00 013 23:59:59 CLS Outpatient NILO MCFARLAND MD Via [facility] RAD ACUTE NECK AND EAR PAIN ,PAINFUL SWALLOWING [id number] 01/14/2016 09:57:00 Document Registration [id number] 10/27/2015 02:28:00 Document Registration [id number] 06/19/2014 13:50:00 Document Registration [id number] 06/18/2014 10:04:00 Document Registration [id number] 06/14/2014 11:38:00 Document Registration [id number] 06/13/2014 09:22:00 Document Registration [id number] 05/28/2014 13:20:00 Document Registration [id number] 05/28/2014 13:12:00 Document Registration [id number] 09/25/2019 08:36:00 09/25/2019 10:10 :00 DIS Outpatient Howayek, [facility] ER [id number] 09/07/2019 08:31:00 09/07/2019 23:59 :00 DIS Outpatient YAROSH, [place] [id number] 08/24/2019 15:31:00 08/24/2019 23:59 :00 DIS Outpatient Paoni, [place] [id number] 08/12/2019 08:12:00 08/12/2019 23:59 :00 DIS Outpatient Paoni, [place] [id number] 08/08/2019 00:00:00 08/08/2019 00:00 :00 CAN Outpatient Paoni, [place] [id number] 08/01/2019 00:00:00 08/01/2019 23:59 :00 DIS Outpatient Paoni, [place] [id number] 05/17/2019 08:50:00 05/17/2019 23:59 :00 DIS Outpatient Paoni, [place] [id number] 04/28/2019 13:26:00 04/28/2019 23:59 :00 DIS Outpatient Paoni, [place] [id number] 04/25/2019 14:54:00 04/25/2019 23:59 :00 DIS Outpatient Paoni, [place] [id number] 04/25/2019 14:42:00 04/25/2019 23:59 :00 DIS Outpatient Paoni, Advis [id number] 03/14/2019 13:49:00 03/14/2019 23:59 :00 DIS Outpatient Paoni, [place] [id number] 02/07/2019 10:05:00 02/07/2019 23:59: 00 DIS Outpatient Paoni, [place] [id number] 01/16/2019 09:28:00 01/16/2019 23:59: 00 DIS Outpatient Paoni, [place] [id number] 06/21/2018 08:53:00 06/21/2018 09:45: 00 DIS Outpatient Howayek, [facility] ER [id number] 04/13/2017 11:00:00 04/13/2017 23:59: 00 DIS Outpatient Paoni, [place] [id number] 04/12/2017 10:45:00 04/12/2017 23:59: 00 DIS Outpatient Davis Caldera [id number] 03/24/2017 15:15:00 03/24/2017 23:59: 00 DIS Outpatient Davis Caldera [id number] 03/08/2016 00:00:00 03/08/2016 00:00: 00 CAN Outpatient Davis Caldera [id number] 03/06/2016 11:41:00 03/06/2016 23:59: 00 DIS Outpatient Etta Arellano [id number] 03/03/2016 17:11:00 03/03/2016 23:59: 00 DIS Outpatient Davis Caldera [id number] 03/03/2016 11:26:00 03/03/2016 23:59: 00 DIS Outpatient Davis Caldera [id number] 09/25/2019 09:09:31 Document Registration [id number] 09/25/2019 08:38:06 Document Registration [id number] 04/12/2017 09:57:00 Document Registration [id number] 03/24/2017 14:47:00 Document Registration [id number] 03/02/2016 15:34:00 Document Registration
[2019-09-28] MEDS ORDERED: LACTATED RINGERS 1,000 ML IV ONE (10:55)
[2019-09-28] MEDS ORDERED: ONDANSETRON 4 MG/2 ML (SDV) Z0FRAN ONE (10:55)
[2019-09-28] MEDS ORDERED: ONDANSETRON 4 MG/2 ML (SDV) Z0FRAN IVP PRN (11:00)
[2019-09-28] MEDS: LACTATED RINGERS 1,000 ML IV SCH ×2 (11:06→22:10)
--- NOTE | 2019-09-28 11:27 | NUR ---
SPOKE WITH THE PATIENTS , WENT THRU THE EXT MED HISTORY AND CALLED [facility]RIE LOPEZ TO COMPLETE THE MED REC MICHELLE (PATIENTS ) WAS AT HOME AND WENT THRU ALL HIS MEDICATIONS AND WAS ABLE TO TELL ME HOW/WHEN HE TAKES EACH. FIASP IS THE PATIENTS INSULIN THAT HE USES VIA PUMP- [facility]E HAS DIRECTIONS THAT SAYS " USE APPROXIMATELY 50 UNITS PER DAY" AND THE THOUGHT THAT SOUNDED CORRECT. OTC MEDS: ASPIRIN 81MG MAGNESIUM
[2019-09-28] MEDS ORDERED: PATIENT MAY USE OWN MEDS, ALL PO SCH (12:45)
[2019-09-28] MEDS ORDERED: polyethylene glycoL POWDER 17 GM (MIRALAX) PACK PO PRN (12:45)
[2019-09-28] MEDS ORDERED: ANTACID SUSP 30 ML UDC (MYLANTA) PO PRN (12:45)
[2019-09-28] MEDS ORDERED: PROMETHAZINE INJ 25 MG/ML (PHENERGAN) AMP IVP PRN (12:45)
[2019-09-28] MEDS ORDERED: ACETAMINOPHEN 325 MG TABLET PO PRN (12:45)
[2019-09-28] MEDS ORDERED: ONDANSETRON 4 MG/2 ML (SDV) Z0FRAN IV PRN (12:45)
[2019-09-28] MEDS ORDERED: ONDANSETRON 4 MG (ZOFRAN) ORAL DISSOLVE TAB PO PRN (12:45)
[2019-09-28] MEDS ORDERED: MELATONIN 3 MG TABLET PO PRN (12:45)
--- NOTE | 2019-09-28 12:50 | History & Physical-Hospitalist ---
History of Present Illness HPI/Chief Complaint Luis Alberto Wiseman is a 74-year-old male with past medical history of type II diabetes mellitus on insulin pump, non-Hodgkin's lymphoma currently in remission, chronic kidney disease stage III, heart failure with reduced ejection fraction, who presented with chest pain. He reports that the chest pain woke him up from sleep. He says the pain is located in the center of his chest and it feels like someone is sitting on his chest. He denies any radiation. He reports diaphoresis, nausea, and vomiting. He reports shortness of breath. He denies any cough. He denies any fevers. He is reporting chills. He denies any pleuritic chest pain. He denies any tenderness to palpation. He denies any abdominal pain. He denies any diarrhea. He currently has shingles on the right side of his chest and back and is being treated with valacyclovir. Source: patient Exam Limitations: no limitations Date Seen 09/28/19 Time Seen by a Provider: 10:20 Attending Physician Carmela Bowen MD PCP Davis Caldera DO Referring Physician Date of Admission Sep 28, 2019 at 07:56 Home Medications & Allergies Home Medications Reviewed patient Home Medication Reconciliation performed by pharmacy medication reconciliations chemistry technician and/or nursing. Patients Allergies have been reviewed. Allergies Allergies Coded Allergies hydrocodone (Verified Allergy, Intermediate, RASH, 07/14/17) oxycodone (Verified Allergy, Intermediate, RASH, 07/14/17) formaldehyde (Verified Allergy, Unknown, 12/20/07) Past Iyxylwy-Bjtoco-Jbuhxo Hx Past Med/Social Hx: Reviewed and Corrections made Patient Social History Alcohol Use: Occasionally Uses Number of Drinks Today: GG Alcohol Beverage of Choice: Whiskey Recreational Drug Use: No Smoking Status: Former Smoker Former Smoker, Quit: Jul 28, 1990 Type Used: Cigarettes 2nd Hand Smoke Exposure: No Recent Foreign Travel: No Contact w/other who traveled: No Recent Hopitalizations: No Recent Infectious Disease Expo: No Immunizations Up To Date Tetanus Booster (TDap): Unknown Pediatric: Yes Date of Pneumonia Vaccine: Aug 02, 2011 Date of Influenza Vaccine: Feb 08, 2019 Seasonal Allergies Seasonal Allergies: No Past Medical History Surgeries: Abdominal, Bowel Surgery, Cardiac, Orthopedic, Penile Implant, Renal, Transurethral Resection, Vascular Surgery Cardiac: Coronary Artery Disease, Heart Murmur, High Cholesterol, Hypertension, Peripheral Vascular, Valvular Heart Disease Neurological: Neuropathy Reproductive: No Sexually Transmitted Disease: No HIV/AIDS: No Genitourinary: Benign Prostatic Hyperpl, Prostate Problems, Bladder Infection Gastrointestinal: Abdominal Hernia, Obstructive Bowel, Chronic Constipation, Gall Bladder Disease Musculoskeletal: Rheumatoid Arthritis Endocrine: Diabetes, Insulin dep Cancer: Lymphoma, Colon Did You Recieve Any Treatments: Yes What Type of Treatment Did You: Chemotherapy, Other History of Blood Disorders: No Adverse Reaction to Blood Szymanski: No Family History Congestive heart failure 19 MOTHER Family history: Diabetes mellitus 19 MOTHER No Family History of: Abdominal aortic aneurysm Alcoholism Cancer Dementia Family history: Allergy Family history: Alzheimer's disease Family history: Arthritis Family history: Asthma Family history: Breast disease Family history: Cardiovascular disease Family history: Gastrointestinal disease Family history: Thyroid disorder Myocardial infarction Psychotic disorder Seizure disorder Stroke 08/02/19--PERIPHERAL ANGIOGRAM--SMALL VESSEL DISEASE, NO INTERVENTION. 06/21/19--NORMAL COLONOSCOPY Review of Systems Constitutional: chills, diaphoresis EENTM: no symptoms reported Respiratory: short of breath Cardiovascular: chest pain Gastrointestinal: nausea, vomiting Genitourinary: no symptoms reported Musculoskeletal: no symptoms reported Skin: rash Psychiatric/Neurological: No Symptoms Reported Physical Exam Physical Exam Vital Signs Vital Signs - First Documented Capillary Refill : Less Than 3 Seconds Height, Weight, BMI Height: 5'10.00" Weight: 187lbs. 2.0oz. 84.861147la; 26.00 BMI Method:Estimated General Appearance: WD/WN, Mild Distress HEENT: PERRL/EOMI, Pharynx Normal Neck: Normal Inspection, Supple Respiratory: Chest Non Tender, Lungs Clear, Normal Breath Sounds, No Respiratory Distress Cardiovascular: No Murmur, Tachycardia (Regular rhythm) Gastrointestinal: Normal Bowel Sounds, Non Tender, Soft Extremity: Normal Capillary Refill, Normal Inspection, Non Tender, No Pedal Edema Neurologic/Psychiatric: Alert, Oriented x3, No Motor/Sensory Deficits Skin: Normal Color, Warm/Dry Results Results/Procedures Labs Laboratory Tests 09/28/19 07:00 Patient resulted labs reviewed. Imaging: Reviewed Imaging Report Assessment/Plan Admission Diagnosis Chest pain Admission Status: Observation Assessment and Plan Chest pain Resolved after one dose of nitroglycerin Initial EKG and troponin normal Continue serial troponin monitoring Cardiology consulted, appreciate assistance Given aspirin 324 mg in ER Continue aspirin daily Check lipid panel wirer on telemetry Chronic heart failure with reduced ejection fraction Chest x-ray with mild pulmonary congestion BNP elevated at 425 Clinically appears hypovolemic, no sign of acute heart failure Shingles Continue valacyclovir Type II diabetes mellitus Continue insulin pump Sliding scale insulin History of non-Hodgkin's lymphoma Clinically significant, no acute management needs CKD 3 Creatinine 1.33, appears to be at baseline Continue to monitor DVT prophylaxis: Lovenox Diagnosis/Problems Diagnosis/Problems (1) Chest pain Status: Acute (2) NHL (non-Hodgkin's lymphoma) Status: Chronic (3) Shingles Status: Acute Qualifiers: Herpes zoster complications: without complications Qualified Codes: B02.9 - Zoster without complications (4) CKD (chronic kidney disease) stage 3, GFR 30-59 ml/min Status: Chronic (5) CHF (congestive heart failure) Status: Chronic Qualifiers: Heart failure type: systolic Heart failure chronicity: chronic Qualified Codes: I50.22 - Chronic systolic (congestive) heart failure (6) Diabetes mellitus Status: Chronic Qualifiers: Diabetes mellitus type: type 2 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 use: with middle or intermediate school principal use Diabetes mellitus complication status: with kidney complications Diabetes mellitus complication detail: with chronic kidney disease Chronic kidney disease stage: stage 3 (moderate) Qualified Codes: E11.22 - Type 2 diabetes mellitus with diabetic chronic kidney disease; N18.3 - Chronic kidney disease, stage 3 (moderate); Z79.4 - MCFP (current) use of insulin Clinical Quality Measures AMI/AHF: ASA po Prior to arrival: No DVT/VTE Risk/Contraindication: Risk Factor Score Per Nursin RFS Level Per Nursing on Admit: 2=Moderate CARMELA BOWEN MD Sep 28, 2019 12:50
[2019-09-28] MEDS ORDERED: ENOXAPARIN 40 MG/0.4 ML (LOVENOX) SYR SC SCH (13:00)
[2019-09-28] MEDS ORDERED: morphine INJ 10 MG/ML 1ML (SYR OR VIAL) IVP STA (16:45)
[2019-09-28] MEDS ORDERED: morphine INJ 4 MG/ML 1 ML (VIAL/SYRINGE) ONE (16:46)
[2019-09-28] MEDS: inSUlin ASPART (NovoLOG) 1 UNIT/0.01 ML (CHARGE PER UNIT) SC SCH ×2 (16:53→20:43)
[2019-09-28] MEDS ORDERED: PANTOPRAZOLE 40 MG (PROTONIX) VIAL IV NR (17:15)
[2019-09-28] MEDS: VALACYCLOVIR 500 MG TAB (VALTREX) PO SCH (18:19)
--- NOTE | 2019-09-28 19:11 | Diagnostic Imaging Report ---
PROCEDURE: CT chest and abdomen without contrast. TECHNIQUE: Axial images were obtained from the thoracic inlet through the iliac crest without the administration of intravenous contrast. Auto Exposure Controls were utilized during the CT exam to meet ALARA standards for radiation dose reduction. INDICATION: Nausea and vomiting, chest pain, non-Hodgkin's lymphoma. EXAMINATION: CT of the chest and abdomen dated 09/28/[address] chest and abdomen 07/27/2016 FINDINGS: CHEST: There are scattered slightly prominent lymph nodes throughout the mediastinum; these appear fairly stable from previous imaging. A few are calcified. Hilar regions poorly evaluated due to lack of contrast. No pericardial or pleural effusions appreciated. Multiple old rib fractures seen bilaterally. There is diffuse atherosclerotic disease. Emphysematous changes in the lungs. A few calcified granulomata seen in both lungs. Linear scarring or atelectasis at both lung bases. Small bullous change in the posterior left lung base stable from previous imaging. IMPRESSION: 1. Chronic changes as above including slightly prominent lymph nodes in the mediastinum and emphysematous disease throughout both lungs with no acute abnormality appreciated. CT ABDOMEN: There is diffuse atherosclerotic disease throughout the aorta and its branches. Abdominal viscera limited due to lack of contrast. The gallbladder is markedly distended and contains a large hyperdensity which could be a large sludge ball and/or stones; sonography could better characterize. The liver grossly unremarkable. The spleen is normal. The kidneys are unremarkable. Adrenal glands and pancreas unremarkable with the pancreas atrophied. No ascites is seen, no free air. Osseous structures demonstrate chronic disease. IMPRESSION: 1. Enlarged abnormal appearing gallbladder; see above discussion. Sonography recommended if clinically indicated. 2. Otherwise incidental findings in the abdomen on this noncontrast examination. Dictated by: Dictated on workstation # [id number]
[2019-09-28] MEDS: PANTOPRAZOLE 40 MG (PROTONIX) VIAL IV SCH (20:42)
[2019-09-28] MEDS: SACUBITRIL/VALSARTAN 24/26 MG (ENTRESTO) TABLET PO SCH (20:43)
[2019-09-28] MEDS ORDERED: NON-FORMULARY MEDICATION 1 EA EA (Valacyclovir HCl (Valacyclovir) 1,000 MG) PO SCH (21:00)
[2019-09-29] VITALS: BP 123/82
[2019-09-29 04:00] VITALS: BP 125/73
[2019-09-29 04:07] LABS: BASOPHILS % (AUTO) 0 % (0-10); EOSINOPHILS % (AUTO) 0 % (0-10); HEMATOCRIT 39 % (40-54); LYMPHOCYTES # (AUTO) 0.6 X 10^3 (1.0-4.0); LYMPHOCYTES % (AUTO) 5 % (12-44); MEAN CORPUSCULAR HEMOGLOBIN 31 PG (25-34); MEAN CORPUSCULAR HGB CONC 33 G/DL (32-36); MEAN CORPUSCULAR VOLUME 93 FL (80-99); MEAN PLATELET VOLUME 11.1 FL (7.4-10.4); MONOCYTES # (AUTO) 0.9 X 10^3 (0.0-1.0); MONOCYTES % (AUTO) 8 % (0-12); NEUTROPHILS # (AUTO) 9.7 X 10^3 (1.8-7.8); NEUTROPHILS % (AUTO) 87 % (42-75); PLATELET COUNT 128 10^3/uL (130-400); RED CELL DISTRIBUTION WIDTH 13.8 % (10.0-14.5); WHITE BLOOD COUNT 11.1 10^3/uL (4.3-11.0)
[2019-09-29 04:32] LABS: ALBUMIN 3.1 GM/DL (3.2-4.5); BILIRUBIN,TOTAL 2.9 MG/DL (0.1-1.0); CALCIUM 8.4 MG/DL (8.5-10.1); CREATININE SERUM 1.39 MG/DL (0.60-1.30); POTASSIUM 3.6 MMOL/L (3.6-5.0); TOTAL PROTEIN 5.6 GM/DL (6.4-8.2)
[2019-09-29] MEDS: LACTATED RINGERS 1,000 ML IV SCH (05:22)
[2019-09-29] MEDS: inSUlin ASPART (NovoLOG) 1 UNIT/0.01 ML (CHARGE PER UNIT) SC SCH (06:35)
[2019-09-29 07:27] VITALS: BP 113/69
[2019-09-29] MEDS ORDERED: predniSONE 5 MG TAB PO SCH (08:00)
[2019-09-29] MEDS ORDERED: ASPIRIN E.C. 81 MG (ECOTRIN) TAB PO SCH (09:00)
--- NOTE | 2019-09-29 09:27 | Diagnostic Imaging Report ---
INDICATION: Chest pain, congestive failure. PROCEDURE: Ultrasound abdomen complete. TECHNIQUE: Multiple real-time grayscale images were obtained of the abdomen in various projections. FINDINGS: The gallbladder is distended at 10.6 x 4.4 x 5.9 cm. Despite its degree of distention, the wall is thickened at 4 mm. No pericholecystic fluid. The large amount of non-shadowing intraluminal debris, likely a sludge ball. There is no dilatation of the intrahepatic bile ducts. The extrahepatic duct at 8 to 9 mm in mildly distended. The pancreas largely obscured by gas. The visualized portions of the aorta nonaneurysmal. The kidneys normal in size, cortical thickness and echotexture. The liver parenchyma itself appeared unremarkable. IMPRESSION: 1. Likely sludge distention of the gallbladder with mild wall thickening, ectasia of the extrahepatic bile duct at 8 to 9 mm with no appreciable intrahepatic biliary dilatation and no radiodense choledocholithiasis found however the distal duct as well as the pancreas are obscured by gas. 2. Unobstructed right kidney with no ascites or fluid collection. Dictated by: Dictated on workstation # [id number]
[2019-09-29] MEDS: VALACYCLOVIR 500 MG TAB (VALTREX) PO SCH (09:49)
[2019-09-29] MEDS: PANTOPRAZOLE 40 MG (PROTONIX) VIAL IV SCH (09:50)
[2019-09-29] MEDS: SACUBITRIL/VALSARTAN 24/26 MG (ENTRESTO) TABLET PO SCH (09:50)
--- NOTE | 2019-09-29 10:33 | CONSULTATION REPORT ---
DATE OF SERVICE: 09/29/2019 ADMITTING PHYSICIAN: Dr. Marley ATTENDING PRIMARY CARE PHYSICIAN: Davis Caldera DO HISTORY OF PRESENT ILLNESS: The patient is a 74-year-old male known to us. He has an extensive past medical history including non-Hodgkin's lymphoma, diabetes, chronic kidney disease as well as heart failure. He states he developed chest pain in the lower part of the chest spanning across like a band. He was admitted and underwent a cardiac evaluation, which did not show a cardiac etiology. A CT scan was performed, which did show inflammation of the gallbladder wall as well as sludge. He also did have elevation of liver function enzymes including total bilirubin, which may also indicate a level of choledocholithiasis. At this time, he does not want to stay in the hospital and would like to manage this as an outpatient. It was explained to him that there is risks of worsening symptoms; however, he wants to continue to manage this at home. It was explained to him to proceed with a very low fat diet as well as to get laboratory work early next week. If his lab work is trending downward, we will then proceed with scheduling him for a laparoscopic cholecystectomy as an outpatient. PAST MEDICAL HISTORY: Non-Hodgkin's lymphoma, BPH, constipation, rheumatoid arthritis, diabetes, congestive heart failure, hypertension, peripheral vascular disease, valvular heart disease, coronary artery disease, neuropathy. PAST SURGICAL HISTORY: Transurethral resection prostate, abdominal hernia repair, small bowel resection. ALLERGIES: No known drug allergies. MEDICATIONS: Aspirin 81 mg daily, cyclobenzaprine 5 mg q.8 hours p.r.n., hydrochlorothiazide 25 mg daily, aspart insulin 30 units daily, magnesium 400 mg daily, metoprolol 25 mg daily, prednisone 5 mg daily, sacubitril/valsartan 24/26 mg b.i.d., tramadol p.r.n., valacyclovir 1000 mg b.i.d. SOCIAL HISTORY: Previous smoker, quit 1990. Does drink socially. FAMILY HISTORY: Mother diabetes and congestive heart failure. REVIEW OF SYSTEMS: Well-nourished male currently in no acute distress. He is not experiencing any shortness of breath or difficulty breathing. No chest pain, palpitations or diaphoresis. One episode of nausea on admission yesterday; however, has not had any since that time. No diarrhea, constipation, no red blood per rectum, no dark tarry stools. No fever, chills, no recent inadvertent weight loss. All other review of systems negative. PHYSICAL EXAMINATION: VITAL SIGNS: Temperature 36.5, blood pressure 113/69, pulse 99, respirations 18, pulse ox 98% on room air. CHEST: Good breath sounds bilaterally. HEART: Regular, no murmurs. EXTREMITIES: No lower extremity edema, negative Homans sign. HEENT: No scleral icterus. NECK: No cervical lymphadenopathy. ABDOMEN: Soft, nondistended. There is pain in the right upper abdominal quadrant upon palpation with voluntary guarding, no rebound. SKIN: Warm, dry. LABORATORY DATA: WBC 11.1, hemoglobin 13.0, hematocrit 39, platelets 128, BUN 25, creatinine 1.39. Total bilirubin 2.9, AST 924, ALT 680, alkaline phosphatase 887. ASSESSMENT AND PLAN: A 74-year-old male with acute on chronic calculous cholecystitis. The natural history of gallbladder disease was explained to the patient. He likely has some component of biliary sludge causing choledocholithiasis, which likely will pass on its own. He wants to leave and manage this as an outpatient and he was instructed to proceed with a very low fat diet as well as to focus on liquids and stay hydrated. We will also proceed with oral antibiotics and pain medications as necessary. He is instructed to also get a repeat laboratory work, next week Wednesday and if his liver function enzymes are trending downward, we would then proceed with schedule him for a laparoscopic cholecystectomy as an outpatient. Thank you. Job ID: [id number] DocumentID: [id number] Dictated Date: 09/29/2019 10:10:29 Grubber Date: 09/29/2019 10:32:46 Dictated By: THERESA HERRERA MD [facility]
--- NOTE | 2019-09-29 10:36 | NUR ---
PT WANTING TO LEAVE AMA. EDUCATED PT ON RISKS OF LEAVING AMA. PT STATED THAT HE DIDN'T CARE. DR BOWEN ALSO SPOKE WITH PT ABOUT LEAVING AMA. PT STATED THAT HE WAS LEAVING TODAY REGARDLESS. PT SIGNED AMA AND WILL BE LEAVING SOON HIS RIDE ARRIVES
[2019-09-29] MEDS ORDERED: HEParin (CENTRAL IV FLUSH) 500 UNIT/5 ML SYR IV ONE (10:45)
[2019-09-29] MEDS ORDERED: HEParin (CENTRAL IV FLUSH) 500 UNIT/5 ML SYR ONE (10:56)
--- NOTE | 2019-09-29 13:14 | Discharge Summary ---
Discharge Summary Hospital Course Problems/Dx: (1) Choledocholithiasis with acute cholecystitis Status: Acute (2) Chest pain Status: Acute (3) NHL (non-Hodgkin's lymphoma) Status: Chronic (4) Shingles Status: Acute Qualifiers: Qualified Codes: B02.9 - Zoster without complications (5) CKD (chronic kidney disease) stage 3, GFR 30-59 ml/min Status: Chronic (6) CHF (congestive heart failure) Status: Chronic Qualifiers: Qualified Codes: I50.22 - Chronic systolic (congestive) heart failure (7) Diabetes mellitus Status: Chronic Qualifiers: Qualified Codes: E11.22 - Type 2 diabetes mellitus with diabetic chronic kidney disease; N18.3 - Chronic kidney disease, stage 3 (moderate); Z79.4 - alf (current) use of insulin Hospital Course Date of Admission: Sep 28, 2019 at 07:56 Admission Diagnosis : Chest pain Family Physician/Provider: Davis Caldera DO Date of Discharge: 09/29/19 Discharge Diagnosis: Choledocholithiasis with acute cholecystitis Hospital Course: Luis Alberto Wiseman is a 74-year-old male who presented with chest pain and was found to have a choledocholithiasis with acute cholecystitis. He underwent troponin and EKG testing which remained normal. He had a CT scan which showed a markedly distended gallbladder with a hyperdensity consistent with stone versus sludge. His total bilirubin, AST, ALT, ALP all significantly increased from relatively normal upon arrival to 2.9, 924, 680, 887 on the day of discharge. Gen. surgery was consulted. His symptoms improved and he did not want to remain hospitalized so he left AGAINST MEDICAL ADVICE. Labs and Pending Lab Test: Laboratory Tests 09/28/19 18:13: Glucometer 243H 09/28/19 21:50: Troponin I < 0.028 09/29/19 03:57: White Blood Count 11.1H, Red Blood Count 4.21L, Hemoglobin 13.0L, Hematocrit 39L , Mean Corpuscular Volume 93, Mean Corpuscular Hemoglobin 31, Mean Corpuscular Hemoglobin Concent 33, Red Cell Distribution Width 13.8, Platelet Count 128L, Mean Platelet Volume 11.1H, Neutrophils (%) (Auto) 87H, Lymphocytes (%) (Auto) 5L, Monocytes (%) (Auto) 8, Eosinophils (%) (Auto) 0, Basophils (%) (Auto) 0, Neutrophils # (Auto) 9.7H, Lymphocytes # (Auto) 0.6L, Monocytes # (Auto) 0.9, Eosinophils # (Auto) 0.0, Basophils # (Auto) 0.0, Sodium Level 135, Potassium Level 3.6, Chloride Level 100, Carbon Dioxide Level 24, Anion Gap 11, Blood Urea Nitrogen 25H, Creatinine 1.39H, Estimat Glomerular Filtration Rate 50, BUN/Creatinine Ratio 18, Glucose Level 200H, Calcium Level 8.4L, Corrected Calcium 9.1, Total Bilirubin 2.9#H, Aspartate Amino Transf (AST/SGOT) 924H, Alanine Aminotransferase (ALT/SGPT) 680#H, Alkaline Phosphatase 887H, Total Protein 5.6L, Albumin 3.1L, Triglycerides Level 68, Cholesterol Level 120, LDL Cholesterol Direct 81, VLDL Cholesterol 14, HDL Cholesterol 30L, Lipase 5L 09/29/19 06:25: Glucometer 246H 09/29/19 07:55: Direct Bilirubin 2.5H Home Meds Active Reported Tramadol HCl 50 Mg Tablet 50 Mg PO BID PRN Cyclobenzaprine HCl 5 Mg Tablet 5 PO Q8H PRN Valacyclovir (Valacyclovir HCl) 1,000 Mg Tablet 1,000 Mg PO BID FILLED 09-25-2019 #20/10 DAY SUPPLY Acetaminophen-Cod #3 Tablet (Acetaminophen with Codeine) 1 Each Tablet 1 Each PO Q4 -6H PRN Fiasp 100 Unit/ml Vial (Insulin Aspart (Niacinamide)) 100 Unit/1 Ml Vial Unit SQ PER PUMP USE APPROXIMATELY 50 UNITS PER DAY Prednisone 5 Mg Tablet 5 Mg PO DAILY Magnesium (Magnesium Oxide) 400 Mg Tablet 400 Mg PO DAILY Metoprolol Succinate 25 Mg Tab.er.24h 25 Mg PO DAILY Hydrochlorothiazide 25 Mg Tablet 25 Mg PO DAILY Entresto 24 mg-26 mg Tablet (Sacubitril/Valsartan) 1 Each Tablet 1 Tab PO BID Aspirin EC (Aspirin) 81 Mg Tablet.dr 81 Mg PO DAILY Assessment/Pt Instructions Patient left AMA Discharge Planning: <30 minutes discharge planning Discharge Physical Examination Vital Signs Vital Signs Date Time Temp Pulse Resp B/P (MAP) Pulse Ox O2 Delivery O2 Flow Rate FiO2 09/29/19 08:00 95 Room Air 09/29/19 07:27 36.5 99 18 113/69 (84) General Appearance: No Apparent Distress, WD/WN Respiratory: Lungs Clear, Normal Breath Sounds, No Respiratory Distress Cardiovascular: Regular Rate, Rhythm, No Edema, No Murmur Gastrointestinal: Normal Bowel Sounds, Soft, Tenderness Extremity: Normal Inspection, Non Tender, No Pedal Edema Skin: Normal Color, Warm/Dry Neurologic/Psychiatric: Alert, Oriented x3, No Motor/Sensory Deficits, Normal Mood/Affect Allergies: Coded Allergies: hydrocodone (Verified Allergy, Intermediate, RASH, 07/14/17) oxycodone (Verified Allergy, Intermediate, RASH, 07/14/17) formaldehyde (Verified Allergy, Unknown, 12/20/07) Copy Copies To 1: DAVIS CALDERA DO Discharge Summary Date of Admission Sep 28, 2019 at 07:56 Date of Discharge Sep 29, 2019 at 11:15 Discharge Date: Sep 29, 2019 Discharge Time: 11:15 Admission Diagnosis Chest pain Consults/Procedures Consulations General surgery Discharge Diagnosis Choledocholithiasis with acute cholecystitis (1) Choledocholithiasis with acute cholecystitis Status: Acute (2) Chest pain Status: Acute (3) NHL (non-Hodgkin's lymphoma) Status: Chronic (4) Shingles Status: Acute Qualifiers: Qualified Codes: B02.9 - Zoster without complications (5) CKD (chronic kidney disease) stage 3, GFR 30-59 ml/min Status: Chronic (6) CHF (congestive heart failure) Status: Chronic Qualifiers: Qualified Codes: I50.22 - Chronic systolic (congestive) heart failure (7) Diabetes mellitus Status: Chronic Qualifiers: Qualified Codes: E11.22 - Type 2 diabetes mellitus with diabetic chronic kidney disease; N18.3 - Chronic kidney disease, stage 3 (moderate); Z79.4 - rodent exterminator (current) use of insulin Clinical Quality Measures AMI/AHF: ASA po Prior to arrival: No DVT/VTE Risk/Contraindication: Risk Factor Score Per Nursin RFS Level Per Nursing on Admit: 2=Moderate URBANO BOWEN MD Sep 29, 2019 13:13
== END 2019-09-29 11:15 | disposition left against medical advice (07) ==
LOC: EDUNIT# 06:39 → ER 06:41 → ICU 07:56 → CSD 18:45
PROVIDERS: ADMIT Internal Medicine; ATTEND Internal Medicine
DX: K80.42 Calculus of bile duct with acute cholecystitis without obstruction (principal); C85.90 Non-Hodgkin lymphoma, unspecified, unspecified site; I13.0 Hypertensive heart and chronic kidney disease with heart failure and stage 1 through stage 4 chronic kidney disease, or unspecified chronic kidney disease; E11.22 Type 2 diabetes mellitus with diabetic chronic kidney disease; N18.3 Chronic kidney disease, stage 3 (moderate); I50.22 Chronic systolic (congestive) heart failure; B02.9 Zoster without complications; I25.10 Atherosclerotic heart disease of native coronary artery without angina pectoris; E78.00 Pure hypercholesterolemia, unspecified; I73.9 Peripheral vascular disease, unspecified; E11.42 Type 2 diabetes mellitus with diabetic polyneuropathy; M06.9 Rheumatoid arthritis, unspecified; Z79.4 Long term (current) use of insulin; Z79.899 Other long term (current) drug therapy; Z79.51 Long term (current) use of inhaled steroids; Z88.6 Allergy status to analgesic agent; Z87.891 Personal history of nicotine dependence; Z92.21 Personal history of antineoplastic chemotherapy; Z79.82 Long term (current) use of aspirin; Z90.49 Acquired absence of other specified parts of digestive tract; Z03.818 Encounter for observation for suspected exposure to other biological agents ruled out
CPT/HCPCS: 71045; 71250; 74150; 76700; 80053 ×2; 80061; 82150; 82248; 82550; 82553; 82962 ×2; 83615; 83690 ×2; 83735; 83874; 83880; 84145; 84484; 85007; 85025; 85027; 85379; 85610; 85652; 85730; 86141; 93005; 93041; 99285; G0378; U0002; 36415; 87635

== ENCOUNTER 2019-10-03 05:38 | Outpatient (RCR) | payer MEDICARE ==
[~2019-10-03] VITALS: Ht 177.8 cm; Wt 81.0 kg
[~2019-10-03 05:38] MED LIST changes: +ACET1TAB43 PO; +CYCL5TAB PO; +TRAM50TA3 PO; +VALA10007 PO
[2019-10-03] MEDS ORDERED: HYDR-4342 PO (09:13)
[2019-10-03] MEDS ORDERED: METR-145 PO (09:13)
[2019-10-03] MEDS ORDERED: CIPR500T4 PO (09:13)
== END 2019-10-03 09:31 | disposition home or self-care (01) ==
LOC: PREOP 05:38
PROVIDERS: ATTEND Surgery
DX: Z01.818 Encounter for other preprocedural examination (principal)

== ENCOUNTER 2019-10-05 07:42 | Day surgery (SDC) | payer MEDICARE ==
[2019-10-05] VITALS (19 sets, daily range): BP systolic 79–158; BP diastolic 41–86
[~2019-10-05] VITALS: Ht 177.8 cm; Wt 81.0 kg
[~2019-10-05 07:42] MED LIST changes: +CIPR500T4 PO; +HYDR-4342 PO; +METR-145 PO
[2019-10-05] MEDS ORDERED: BUP/EPI 0.5% 1:200,000 (SENSORCAINE) 30 ML VIAL ONE (07:53)
[2019-10-05] MEDS ORDERED: CATHETER FLUSH 10 ML SYR IV PRN (08:00)
[2019-10-05] MEDS ORDERED: ceFAZolin 2 GM IV Premixed 50 ML IV ONE (08:00)
[2019-10-05] MEDS ORDERED: fentaNYL INJECTION 100 MCG/2 ML AMP ONE ×2 (08:17→08:37)
[2019-10-05] MEDS ORDERED: LIDOCAINE PF 2% 5 ML (XYLOCAINE) VIAL ONE (08:17)
[2019-10-05] MEDS ORDERED: proPOfol 200 MG/20 ML (DIPRIVAN) VIAL IV ONE (08:17)
[2019-10-05] MEDS ORDERED: ONDANSETRON 4 MG/2 ML (SDV) Z0FRAN ONE (08:17)
[2019-10-05] MEDS ORDERED: MIDAZOLAM 2 MG/2 ML (VERSED) VIAL ONE (08:17)
[2019-10-05] MEDS ORDERED: ROCURONIUM 10 MG/ML 5 ML SYRINGE IV ONE (08:18)
--- NOTE | 2019-10-05 08:23 | Progress Note-Pre Operative ---
Pre-Operative Progress Note H&P Reviewed The H&P was reviewed, patient examined and no changes noted. Date Seen by Provider: Oct 05, 2019 Time Seen by Provider: 08:20 Date H&P Reviewed: Oct 05, 2019 Time H&P Reviewed: 08:15 Pre-Operative Diagnosis: Symptomatic gallbladder sludge GATO PETER APRN Oct 05, 2019 08:22
[2019-10-05] MEDS: LACTATED RINGERS 1,000 ML IV PRN ×3 (08:29→11:56)
[2019-10-05] MEDS ORDERED: TRM50T PO (08:29)
[2019-10-05] MEDS ORDERED: ONDANSETRON 4 MG/2 ML (SDV) Z0FRAN IVP PRN ×2 (08:30→09:30)
[2019-10-05] MEDS ORDERED: ACETAMINOPHEN 325 MG TABLET PO PRN (08:30)
[2019-10-05] MEDS ORDERED: morphine INJ 10 MG/ML 1ML (SYR OR VIAL) IVP PRN (08:30)
--- NOTE | 2019-10-05 08:30 | Discharge Inst-Surgical ---
D/C Lap Instructions-KIDO Reconcile Patient Problems Problems Reviewed?: Yes New, Converted, or Re-Newed RX: RX on Chart Follow Up Appt in 2 weeks Activity as tolerated No driving for 24 hours No driving while on pain medications Incentive Spirometry use every 2 hours while awake Regular Diet Symptoms to Report: Fever over 101 degree F, Nausea/Vomiting Infection Signs and Symptoms to report: Increased redness, Foul odor of wound, Increased drainage Bathing instructions: May shower Operative Area Clean/Dry; Keep incision clean/dry If any problems/questions: Contact your physician or go to Emergency Room GATO PETER APRN Oct 05, 2019 08:30
[2019-10-05] MEDS ORDERED: SEVOFLURANE (ULTANE) 15 ML INHAL SOLN ONE ×3 (08:43→10:12)
[2019-10-05] MEDS ORDERED: fentaNYL INJECTION 100 MCG/2 ML AMP IVP ONE ×2 (08:45→09:30)
[2019-10-05] MEDS ORDERED: MEPERIDINE (DEMEROL) INJ 50 MG/ML IVP ONE (09:30)
[2019-10-05] MEDS ORDERED: PHENYLEPHRINE 100 MCG/ML 10 ML (ANESTHESIA) SYR ONE (10:12)
--- NOTE | 2019-10-05 10:20 | Progress Note-Post Operative ---
Post-Operative Progess Note Surgeon (s)/Security Strategist (s) Surgeon THERESA HERRERA MD Security Strategist: paco velazquez BUDGET COUNSELOR Pre-Operative Diagnosis Symptomatic gallbladder sludge Post-Operative Diagnosis chronic calculous cholecystitis. Procedure & Operative Findings Date of Procedure 10/05/19 Procedure Performed/Findings laparoscopic cholecystectomy. Anesthesia Type get Estimated Blood Loss Estimated blood loss (mL): minimal Specimens/Packing Specimens Removed gallbladder THERESA HERRERA MD Oct 05, 2019 10:20
[2019-10-05] MEDS ORDERED: PROMETHAZINE INJ 25 MG/ML (PHENERGAN) AMP ONE (10:58)
--- NOTE | 2019-10-05 12:00 | NUR ---
3rd liter of LR wide open at this time per PACU. will monitor.
--- NOTE | 2019-10-05 12:45 | NUR ---
sao2 down to 87% on room air while pt resting with eyes closed. ivf slowed to tko. approx 600ml of 3rd liter of normal saline infused. lungs cta bilat. o2 applied at 2l/nc. sao2 up to 100%. bp 80/50. pt sitting up straight after trying to take a drink of sprite et choking. pt moved into semi-fowlers position. pt resting quietly. will cont to monitor.
--- NOTE | 2019-10-05 14:00 | NUR ---
LIZBETH NELSON NOTIFIED OF PT STATUS. OK'S PT FOR DC.
--- NOTE | 2019-10-05 14:11 | Anesthesia-General Post-Op ---
General Patient Condition Mental Status/LOC: Same as Preop Cardiovascular: Satisfactory Nausea/Vomiting: Absent Respiratory: Satisfactory Pain: Controlled Complications: Absent Post Op Complications Complications None Follow Up Care/Instructions Patient Instructions None needed. Anesthesia/Patient Condition Patient Condition Patient is doing well, no complaints, stable vital signs, no apparent adverse anesthesia problems. No complications reported per nursing. TRISTIN GARCIA CRNA Oct 05, 2019 14:11
--- NOTE | 2019-10-05 14:42 | OPERATIVE REPORT ---
DATE OF SERVICE: 10/05/2019 ATTENDING PRIMARY CARE PHYSICIAN: Davis Caldera DO PREOPERATIVE DIAGNOSIS: Chronic calculous cholecystitis. POSTOPERATIVE DIAGNOSES: Chronic calculous cholecystitis. PROCEDURE: Laparoscopic cholecystectomy. SURGEON: Theresa Herrera MD COGNOS TM1 DEVELOPER: Ricardo Guzmán APRN. ANESTHESIA: General endotracheal. ESTIMATED BLOOD LOSS: Minimal. FINDINGS: Distended gallbladder, mild gallbladder wall thickening. Multiple small gallstones. DISPOSITION: The patient tolerated the procedure well. INDICATIONS: The patient is a 74-year-old male known to us. He has an extensive past medical history including non-Hodgkin's lymphoma, diabetes, chronic kidney disease as well as heart failure. 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 Since that time around 2017, he has been in remission. He presented approximately 1 week ago with pain in the chest and was admitted and underwent a cardiac workup, which was negative. CT scan was performed, which showed inflammation of the gallbladder wall as well as gallstones. DESCRIPTION OF PROCEDURE: The patient was brought to the operating room, laid supine on the table. After adequate IV pain and sedative medications and general endotracheal intubation, the abdomen was prepped and draped in standard surgical fashion. A 0.5% Marcaine with epinephrine was used to anesthetize overlying skin in the left upper abdominal quadrant and a transverse skin incision made using a 15 blade. An 0 silk suture was applied to the medial aspect incision for retraction and a Veress needle inserted with a low opening pressure of 0 mmHg and the abdomen was then insufflated to 15 mmHg pressure. The Veress needle removed and a 5 mm XL trocar placed followed by a 5 mm 45-degree angle laparoscope visualizing the peritoneal cavity. A 4-quadrant abdominal exploration was performed. There were omental adhesions towards the anterior abdominal wall from his previous laparotomy incision. There was a distended gallbladder as well as mild gallbladder wall thickening. Under direct visualization, we then proceeded to place a supraumbilical 10 mm port after the skin and peritoneal lining were anesthetized using 0.5% Marcaine with epinephrine and a transverse skin incision made using a 15 blade. In a similar manner, a right upper abdominal quadrant 5 mm port was placed. The patient was then placed in reverse Trendelenburg position as well as plane right side up, left side down. The fundus of the gallbladder retracted anteriorly and superiorly. The hepatoduodenal ligament was then opened using cautery as well as blunt dissection on the hook instrument. The entire critical view of safety was identified including the triangle of Calot as well as the cystic duct and artery is only two structures going into the gallbladder as well as the cystic plate behind the proximal gallbladder. A timeout was then taken, and the cystic duct and artery were then clipped proximally, distally and cut with EndoShears. The gallbladder was then dissected off the liver bed using cautery on hook instrument with visualization of good hemostasis as well as no leaking ducts of Luschka. The gallbladder was removed through the 10 mm port site using an EndoCatch bag. The 10 mm port site fascia and peritoneum were then closed under direct visualization using a Randal-Princess device and 0 Vicryl suture. The abdomen was desufflated and remaining ports removed. All skin incisions were closed using 4-0 Monocryl running subcuticular sutures. Wounds were then cleaned and covered with Dermabond. The patient tolerated the procedure well. We will start IV normal pain medication as well as a clear liquid diet. Once he is tolerating clears, has good pain control with oral pain medications, ambulating well, we will discharge him home. He will be instructed to do no heavy lifting or exertion for the next two weeks. Job ID: [id number] DocumentID: [id number] Dictated Date: 10/05/2019 10:19:15 Roller Printer Date: 10/05/2019 14:41:41 Dictated By: THERESA HERRERA MD
== END 2019-10-05 15:35 | disposition home or self-care (01) ==
LOC: SDC 07:42
PROVIDERS: ATTEND Surgery
DX: K80.10 Calculus of gallbladder with chronic cholecystitis without obstruction (principal); I25.10 Atherosclerotic heart disease of native coronary artery without angina pectoris; I13.0 Hypertensive heart and chronic kidney disease with heart failure and stage 1 through stage 4 chronic kidney disease, or unspecified chronic kidney disease; I50.9 Heart failure, unspecified; N18.9 Chronic kidney disease, unspecified; E11.51 Type 2 diabetes mellitus with diabetic peripheral angiopathy without gangrene; E11.40 Type 2 diabetes mellitus with diabetic neuropathy, unspecified; E78.5 Hyperlipidemia, unspecified; M06.9 Rheumatoid arthritis, unspecified; C85.90 Non-Hodgkin lymphoma, unspecified, unspecified site; Z85.038 Personal history of other malignant neoplasm of large intestine; Z88.8 Allergy status to other drugs, medicaments and biological substances; Z88.6 Allergy status to analgesic agent; Z79.82 Long term (current) use of aspirin; Z79.899 Other long term (current) drug therapy; Z79.891 Long term (current) use of opiate analgesic; Z79.51 Long term (current) use of inhaled steroids; Z90.49 Acquired absence of other specified parts of digestive tract; Z79.4 Long term (current) use of insulin; Z11.2 Encounter for screening for other bacterial diseases
CPT/HCPCS: 82962; 87081; 88304; 93005

== ENCOUNTER 2019-11-06 08:32 | Outpatient (RCR) | payer MEDICARE ==
[2019-10-04 13:45] LABS: BASOPHILS % (AUTO) 0 % (0-10); EOSINOPHILS # (AUTO) 0.1 10^3/uL (0.0-0.3); EOSINOPHILS % (AUTO) 1 % (0-10); HEMATOCRIT 39 % (40-54); LYMPHOCYTES # (AUTO) 0.8 X 10^3 (1.0-4.0); LYMPHOCYTES % (AUTO) 10 % (12-44); MEAN CORPUSCULAR HEMOGLOBIN 31 PG (25-34); MEAN CORPUSCULAR HGB CONC 34 G/DL (32-36); MEAN CORPUSCULAR VOLUME 92 FL (80-99); MEAN PLATELET VOLUME 10.2 FL (7.4-10.4); MONOCYTES # (AUTO) 0.5 X 10^3 (0.0-1.0); MONOCYTES % (AUTO) 7 % (0-12); NEUTROPHILS # (AUTO) 6.4 X 10^3 (1.8-7.8); NEUTROPHILS % (AUTO) 82 % (42-75); PLATELET COUNT 285 10^3/uL (130-400); WHITE BLOOD COUNT 7.9 10^3/uL (4.3-11.0)
[2019-10-04 14:16] LABS: ALBUMIN 3.2 GM/DL (3.2-4.5); BILIRUBIN,TOTAL 0.9 MG/DL (0.1-1.0); CALCIUM 8.9 MG/DL (8.5-10.1); CREATININE SERUM 1.62 MG/DL (0.60-1.30); TOTAL PROTEIN 5.8 GM/DL (6.4-8.2)
[~2019-11-06 08:32] MED LIST changes: +ASPI-1238 PO; -ASPI-983 PO; +HYDR-3817 PO; -HYDR-4342 PO; +TRM50T PO
== END 2019-12-22 08:43 | disposition home or self-care (01) ==
LOC: ONC 08:32
PROVIDERS: ATTEND Internal Medicine Hematology & Oncology
DX: C85.86 Other specified types of non-Hodgkin lymphoma, intrapelvic lymph nodes (principal); C88.0 Waldenstrom macroglobulinemia; E11.9 Type 2 diabetes mellitus without complications; Z98.890 Other specified postprocedural states; Z45.2 Encounter for adjustment and management of vascular access device
CPT/HCPCS: 80053; 82784; 83883; 84155; 84165; 85025; 96523; 99213

== ENCOUNTER 2019-12-29 10:58 | Outpatient (RCR) | payer MEDICARE ==
[2019-12-22 10:16] LABS: BASOPHILS # (AUTO) 0.1 10^3/uL (0.0-0.1); BASOPHILS % (AUTO) 1 % (0-10); EOSINOPHILS # (AUTO) 0.2 10^3/uL (0.0-0.3); EOSINOPHILS % (AUTO) 3 % (0-10); HEMATOCRIT 44 % (40-54); HEMOGLOBIN 14.3 G/DL (13.3-17.7); LYMPHOCYTES # (AUTO) 0.9 X 10^3 (1.0-4.0); LYMPHOCYTES % (AUTO) 14 % (12-44); MEAN CORPUSCULAR HEMOGLOBIN 31 PG (25-34); MEAN CORPUSCULAR HGB CONC 33 G/DL (32-36); MEAN CORPUSCULAR VOLUME 96 FL (80-99); MEAN PLATELET VOLUME 10.5 FL (7.4-10.4); MONOCYTES # (AUTO) 1.1 X 10^3 (0.0-1.0); MONOCYTES % (AUTO) 17 % (0-12); NEUTROPHILS # (AUTO) 4.3 X 10^3 (1.8-7.8); NEUTROPHILS % (AUTO) 65 % (42-75); PLATELET COUNT 196 10^3/uL (130-400); WHITE BLOOD COUNT 6.6 10^3/uL (4.3-11.0)
[2019-12-22 10:36] LABS: ALBUMIN 3.7 GM/DL (3.2-4.5)
[2019-12-22 10:37] LABS: POTASSIUM 4.5 MMOL/L (3.6-5.0)
[2019-12-22 10:38] LABS: CALCIUM 9.1 MG/DL (8.5-10.1)
[2019-12-22 10:39] LABS: TOTAL PROTEIN 6.3 GM/DL (6.4-8.2)
[2019-12-22 10:41] LABS: BILIRUBIN,TOTAL 0.7 MG/DL (0.1-1.0)
[2019-12-22 10:43] LABS: CREATININE SERUM 1.32 MG/DL (0.60-1.30)
[2020-02-07] MEDS ORDERED: PANT40TA2 PO (11:32)
== END 2020-03-21 | disposition home or self-care (01) ==
LOC: ONC 10:58
PROVIDERS: ATTEND Internal Medicine Hematology & Oncology
DX: C83.33 Diffuse large B-cell lymphoma, intra-abdominal lymph nodes (principal); C85.86 Other specified types of non-Hodgkin lymphoma, intrapelvic lymph nodes; C88.0 Waldenstrom macroglobulinemia; E11.9 Type 2 diabetes mellitus without complications; Z98.890 Other specified postprocedural states
CPT/HCPCS: 36415; 80053; 82784; 83883; 84155; 84165; 85025; 99213

== ENCOUNTER → 2020-02-02 | Outpatient (CLI) | payer MEDICARE | LOC: CARD 08:48 | PROVIDERS: ATTEND Physician Assistant | DX: I08.0 Rheumatic disorders of both mitral and aortic valves (principal); I50.9 Heart failure, unspecified; E78.2 Mixed hyperlipidemia | CPT/HCPCS: 93306 ==

== ENCOUNTER 2020-02-05 05:26 | Outpatient (RCR) | payer MEDICARE ==
[~2020-02-05] VITALS: Ht 177.8 cm; Wt 82.3 kg
== END 2020-02-05 10:15 | disposition home or self-care (01) ==
LOC: PREOP 05:26
PROVIDERS: ATTEND Surgery
DX: Z01.812 Encounter for preprocedural laboratory examination (principal); Z20.828 Contact with and (suspected) exposure to other viral communicable diseases
CPT/HCPCS: 87635

== ENCOUNTER 2020-02-07 09:55 | Day surgery (SDC) | payer MEDICARE ==
--- NOTE | 2020-01-31 06:22 | HISTORY AND PHYSICAL ---
DATE OF SERVICE: ATTENDING PRIMARY CARE PHYSICIAN: Davis Caldera DO HISTORY OF PRESENT ILLNESS: The patient is a 74-year-old male known to us. He has an extensive past medical history including non-Hodgkin's lymphoma, diabetes, chronic kidney disease as well as heart failure. He developed upper abdominal pain and was found to have gallstones and underwent a laparoscopic cholecystectomy on 10/05/2019; he also recently had his Groshong catheter removed. 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 He has undergone extensive past cardiac workup and more recent workup, which have all been negative. He does report that he has had some issues with heartburn and reflux in the past, which has worsened lately as well. He does not report any nausea nor vomiting as well as no hematemesis, no coffee ground emesis. PAST MEDICAL HISTORY: Non-Hodgkin's lymphoma, BPH, constipation, rheumatoid arthritis, diabetes, congestive heart failure, hypertension, peripheral vascular disease, valvular heart disease, coronary artery disease, neuropathy. PAST SURGICAL HISTORY: Transurethral resection of prostate, abdominal hernia repair, small bowel resection, laparoscopic cholecystectomy. ALLERGIES: No known drug allergies. MEDICATIONS: Aspirin 81 mg daily, cyclobenzaprine 5 mg p.r.n., hydrochlorothiazide 25 mg daily. Aspartate insulin 30 units daily, metoprolol 25 mg daily, prednisone 5 mg daily, sacubitril/valsartan 24/26 mg b.i.d., and tramadol p.r.n., valacyclovir 1000 mg b.i.d. SOCIAL HISTORY: Previous smoke, quit in 1990. Social alcohol. FAMILY HISTORY: Mother diabetes and congestive heart failure. REVIEW OF SYSTEMS: Well-nourished male in no acute distress. He is not experiencing any shortness of breath or difficulty breathing. No chest pain, palpitations, diaphoresis. Intermittent episodes of epigastric sharp pain with reflux. No regurgitation. No hematemesis, no coffee ground emesis. Intermittent episodes of constipation, no red blood per rectum, no dark tarry stools. No fever, chills, no recent inadvertent weight loss. All other review of systems negative. PHYSICAL EXAMINATION: CHEST: Clear. Good breath sounds bilaterally. HEART: Regular, no murmurs. EXTREMITIES: No lower extremity edema, negative Homans sign. HEENT: No scleral icterus. NECK: No cervical lymphadenopathy. ABDOMEN: Soft, nondistended. There is mild discomfort in the epigastric region on deep palpation. No hernias. SKIN: Warm, dry. ASSESSMENT AND PLAN: A 74-year-old male with symptomatic gastroesophageal reflux disease. He does have risk factors for this including social alcohol as well as a number of medications including nonsteroidal anti-inflammatory. He has undergone a recent cardiac evaluation, which has been negative, and we will proceed with a diagnostic EGD as well as appropriate biopsies. Job ID: [id number] DocumentID: [id number] Dictated Date: 01/30/2020 13:51:12 Cone Runner Date: 01/30/2020 14:06:16 Dictated By: THERESA HERRERA MD
[2020-02-07] VITALS (15 sets, daily range): BP systolic 103–134; BP diastolic 68–86
[~2020-02-07] VITALS: Ht 177.8 cm; Wt 82.3 kg
[2020-02-07] MEDS ORDERED: NS IV 500 ML 500 ML ONE (10:05)
[2020-02-07] MEDS ORDERED: NS IV 500 ML 500 ML IV PRN (10:07)
[2020-02-07] MEDS ORDERED: LIDOCAINE JELLY 2% 6 ML SYRINGE MM PRN (10:15)
[2020-02-07] MEDS ORDERED: fentaNYL INJECTION 100 MCG/2 ML AMP IVP ONE (10:15)
[2020-02-07] MEDS ORDERED: HURRICAINE EXT TUBE (BENZOCAINE) XX PRN (10:15)
[2020-02-07] MEDS ORDERED: MIDAZOLAM 5 MG/5 ML (VERSED) VIAL IV ONE (10:15)
[2020-02-07] MEDS ORDERED: LIDOCAINE JELLY 2% 6 ML SYRINGE ONE (11:24)
[2020-02-07] MEDS ORDERED: HURRICAINE EXT TUBE (BENZOCAINE) ONE (11:25)
[2020-02-07] MEDS ORDERED: MIDAZOLAM 5 MG/5 ML (VERSED) VIAL ONE (11:25)
[2020-02-07] MEDS ORDERED: fentaNYL INJECTION 100 MCG/2 ML AMP ONE (11:25)
[2020-02-07] MEDS ORDERED: morphine INJ 10 MG/ML 1ML (SYR OR VIAL) IVP PRN (11:30)
[2020-02-07] MEDS ORDERED: ONDANSETRON 4 MG/2 ML (SDV) Z0FRAN IVP PRN (11:30)
[2020-02-07] MEDS ORDERED: ACETAMINOPHEN 325 MG TABLET PO PRN (11:30)
--- NOTE | 2020-02-07 11:30 | Progress Note-Pre Operative ---
Pre-Operative Progress Note H&P Reviewed The H&P was reviewed, patient examined and no changes noted. Date Seen by Provider: Feb 07, 2020 Time Seen by Provider: 11:00 Date H&P Reviewed: Feb 07, 2020 Time H&P Reviewed: 11:00 Pre-Operative Diagnosis: THERESA SAEZ MD Feb 07, 2020 11:30
--- NOTE | 2020-02-07 11:30 | Conscious Sedation/ASA ---
Conscious Sedation Pre-Proced Time 11:00 ASA Score 2 For ASA 3 and 4: Consider anesthesia and medical clearance. Also, for patients with a history of failed moderate sedation consider anesthesia. Airway Lungs Heart ASA score ASA 1: a normal healthy patient ASA 2: a patient with a mild systemic disease (mid diabetes, controlled hypertension, obesity ASA 3: a patient with a severe systemic disease that limits activity (angina, COPD, prior Myocardial infarction) ASA 4: a patient with an incapacitating disease that is a constant threat to life (CHF, renal failure) ASA 5: a moribund patient not expected to survive 24 hrs. (ruptured aneurysm) ASA 6: a declared brain- patient whose organs are being harvested. For emergent operations, add the letter E after the classification Mallampati Classification Grade 2 Sedation Plan Analgesia, Amnesia, Plan communicated to team members, Discussed options with patient/fam, Discussed risks with patient/fam The patient is an appropriate candidate to undergo the planned procedure, sedation, and anesthesia. The patient immediately re-assessed prior to indication. THERESA HERRERA MD Feb 07, 2020 11:30
[2020-02-07] MEDS ORDERED: PANT40TA2 PO (11:32)
--- NOTE | 2020-02-07 11:32 | Discharge Inst-Surgical ---
D/C Lap Instructions-KIDO New, Converted, or Re-Newed RX: RX on Chart Follow Up Activity as tolerated High Fiber Diet 25g or more per day Avoid Alcohol, Caffeine, Spicy [place] and Acid foods. Drink 64 fluid oz or more of fluids per day. Symptoms to Report: Fever over 101 degree F, Nausea/Vomiting If any problems/questions: Contact your physician or go to Emergency Room THERESA HERRERA MD Feb 07, 2020 11:32
--- NOTE | 2020-02-07 13:03 | Progress Note-Post Operative ---
Post-Operative Progess Note Surgeon (s)/Radio Frequency Engineer (s) Surgeon THERESA HERRERA MD Radio Frequency Engineer: none Pre-Operative Diagnosis GERD Post-Operative Diagnosis reflux esophagitis(stage 2), small-moderate type 1 HH(2.5cm), moderate gastritis. Procedure & Operative Findings Date of Procedure 02/07/20 Procedure Performed/Findings EGD with bx. Anesthesia Type cs Estimated Blood Loss Estimated blood loss (mL): minimal Specimens/Packing Specimens Removed ge jxn, antrum THERESA HERRERA MD Feb 07, 2020 13:03
--- NOTE | 2020-02-07 22:53 | OPERATIVE REPORT ---
DATE OF SERVICE: 02/07/2020 ATTENDING PRIMARY CARE PHYSICIAN: Dr. Davis Caldera. PREOPERATIVE DIAGNOSES: Chest and epigastric pain. POSTOPERATIVE DIAGNOSES: Reflux esophagitis stage II, small to moderate size hiatal hernia approximately 2.5 cm in size, moderate severity gastritis. PROCEDURE: EGD with biopsy. SURGEON: Theresa Herrera MD ANESTHESIA: Conscious sedation. ESTIMATED BLOOD LOSS: Minimal. FINDINGS: Same as postoperative diagnoses. DISPOSITION: The patient tolerated the procedure well. INDICATIONS: The patient is a 74-year-old male known to us. He has had an extensive past medical history including non-Hodgkin's lymphoma, diabetes, chronic kidney disease as well as heart failure. He developed upper abdominal pain as well as upper abdominal pain, was found to have gallstones and underwent a laparoscopic cholecystectomy on 10/05/2019. He also recently underwent Groshong catheter removal. He was seen by his set up technician recently for epigastric as well as chest pain. He underwent a cardiac workup, which yielded negative. He reports issues with heartburn and reflux in the past, which has worsened lately as well. He does not report any hematemesis, no coffee ground emesis. DESCRIPTION OF PROCEDURE: The patient was brought to the endoscopy suite, laid in left lateral decubitus position with head slightly elevated. After adequate IV pain and sedative medications and conscious sedation anesthesia, the mouthpiece was applied. The endoscope was placed in the mouth, visualizing the pharynx and hypopharyngeal region. Vocal cords, epiglottis and vallecula identified and appeared to be normal. The endoscope was then gently intubated into the esophageal opening and esophagus insufflated. The endoscope was then advanced through the first, second and third portion of the esophagus at the level of GE junction, a reflux esophagitis stage II identified. The GE junction was also intrathoracic consistent with a hiatal hernia. A biopsy was taken with forceps with visualization of good hemostasis. The endoscope was then advanced in the stomach and endoscope retroflexed, visualizing a type 1 hiatal hernia approximately 2.5 cm in size. There was a moderate severity gastritis. No formal ulcerations, polyps, or any neoplasms. A biopsy was taken from the antrum to rule out H. pylori with visualization of good hemostasis. The endoscope was then advanced to the pylorus and the first and second portion of the duodenum, which appeared normal with no distal obstructions. The endoscope was slowly withdrawn while taking a second look and suctioning of residual air with no additional findings. The patient tolerated the procedure well. We will recommend the necessary lifestyle and diet accommodation including small and more frequent meals, avoidance of eating at night as well as head elevation while lying supine. He also needs to avoid caffeinated beverages, spicy, greasy and acidic foods. We will also start him on Protonix 40 mg daily. Job ID: [id number] DocumentID: [id number] Dictated Date: 02/07/2020 12:58:57 Tinsel Machine Operator Date: 02/07/2020 22:52:57 Dictated By: THERESA HERRERA MD MTDD
== END 2020-02-07 13:40 | disposition home or self-care (01) ==
LOC: ENDO 09:55
PROVIDERS: ATTEND Surgery
DX: K21.00 Gastro-esophageal reflux disease with esophagitis, without bleeding (principal); K44.9 Diaphragmatic hernia without obstruction or gangrene; K29.50 Unspecified chronic gastritis without bleeding; K31.9 Disease of stomach and duodenum, unspecified; E11.22 Type 2 diabetes mellitus with diabetic chronic kidney disease; I13.0 Hypertensive heart and chronic kidney disease with heart failure and stage 1 through stage 4 chronic kidney disease, or unspecified chronic kidney disease; N18.9 Chronic kidney disease, unspecified; I50.9 Heart failure, unspecified; C85.90 Non-Hodgkin lymphoma, unspecified, unspecified site; N40.0 Benign prostatic hyperplasia without lower urinary tract symptoms; M06.9 Rheumatoid arthritis, unspecified; E11.51 Type 2 diabetes mellitus with diabetic peripheral angiopathy without gangrene; E11.40 Type 2 diabetes mellitus with diabetic neuropathy, unspecified; I25.10 Atherosclerotic heart disease of native coronary artery without angina pectoris; K59.00 Constipation, unspecified; Z79.82 Long term (current) use of aspirin; Z79.899 Other long term (current) drug therapy; Z87.891 Personal history of nicotine dependence; Z79.4 Long term (current) use of insulin
CPT/HCPCS: 82962

== ENCOUNTER → 2020-02-09 | Outpatient (CLI) | payer MEDICARE ==
[~2020-02-09] MED LIST changes: +PANT40TA2 PO
--- NOTE | 2020-02-09 09:37 | Diagnostic Imaging Report ---
PROCEDURE: MR imaging of the brain without contrast. TECHNIQUE: Multiplanar, multisequence MR imaging of the brain was performed without contrast. INDICATION: History of non-Hodgkin's lymphoma. Dizziness for 5 months. COMPARISON: 08/17/2018. Findings: No acute ischemia, mass, or hemorrhage. Scattered chronic microvascular disease is seen in the periventricular and subcortical white matter. The ventricles and cortical sulci are diffusely prominent. The basilar cisterns are symmetric and unremarkable. The sellar and suprasellar regions have a normal appearance. The brainstem and posterior fossa are unremarkable. The paranasal sinuses and mastoid air cells demonstrate normal signal characteristics. Bilateral lens implants are noted. The globes and orbits are symmetric and unremarkable. The scalp and calvarium have a normal appearance. Impression: 1. No acute ischemia, mass, or hemorrhage. 2. Small amount of scattered chronic microvascular disease. 3. Generalized parenchymal volume loss. Dictated by: Dictated on workstation # [id number]
== END ==
LOC: RAD 08:45
PROVIDERS: ATTEND Psychiatry & Neurology Neurology
DX: I67.89 Other cerebrovascular disease (principal); Z85.72 Personal history of non-Hodgkin lymphomas
CPT/HCPCS: 70551

== ENCOUNTER 2020-06-24 09:25 | Outpatient (RCR) | payer MEDICARE ==
[2020-06-20 08:59] LABS: BASOPHILS # (AUTO) 0.1 10^3/uL (0.0-0.1); BASOPHILS % (AUTO) 1 % (0-10); EOSINOPHILS # (AUTO) 0.2 10^3/uL (0.0-0.3); EOSINOPHILS % (AUTO) 2 % (0-10); HEMATOCRIT 46 % (40-54); HEMOGLOBIN 15.2 g/dL (13.3-17.7); LYMPHOCYTES # (AUTO) 1.3 10^3/uL (1.0-4.0); LYMPHOCYTES % (AUTO) 18 % (12-44); MEAN CORPUSCULAR HEMOGLOBIN 31 pg (25-34); MEAN CORPUSCULAR HGB CONC 33 g/dL (32-36); MEAN CORPUSCULAR VOLUME 95 fL (80-99); MEAN PLATELET VOLUME 10.6 fL (9.0-12.2); MONOCYTES # (AUTO) 1.1 10^3/uL (0.0-1.0); MONOCYTES % (AUTO) 16 % (0-12); NEUTROPHILS # (AUTO) 4.4 10^3/uL (1.8-7.8); NEUTROPHILS % (AUTO) 62 % (42-75); PLATELET COUNT 210 10^3/uL (130-400)
[2020-06-20 09:17] LABS: ALBUMIN 3.6 GM/DL (3.2-4.5); BILIRUBIN,TOTAL 0.7 MG/DL (0.1-1.0); CALCIUM 8.6 MG/DL (8.5-10.1); CREATININE SERUM 1.64 MG/DL (0.60-1.30); POTASSIUM 4.7 MMOL/L (3.6-5.0); TOTAL PROTEIN 6.4 GM/DL (6.4-8.2)
[~2020-06-24 09:25] MED LIST changes: -CIPR500T4 PO; +CIPR500T5 PO; -OXYC-471 PO; +OXYC1TAB11 PO
== END 2020-09-18 | disposition home or self-care (01) ==
LOC: ONC 09:25
PROVIDERS: ATTEND Internal Medicine Hematology & Oncology
DX: C83.30 Diffuse large B-cell lymphoma, unspecified site (principal); C83.50 Lymphoblastic (diffuse) lymphoma, unspecified site; E11.9 Type 2 diabetes mellitus without complications; E78.5 Hyperlipidemia, unspecified; R74.02 Elevation of levels of lactic acid dehydrogenase [LDH]; Z90.49 Acquired absence of other specified parts of digestive tract
CPT/HCPCS: 80053; 83615; 85025; 99213

== ENCOUNTER 2020-12-17 08:59 | Outpatient (RCR) | payer MEDICARE ==
[2020-12-13 08:53] LABS: BASOPHILS # (AUTO) 0.1 10^3/uL (0.0-0.1); BASOPHILS % (AUTO) 1 % (0-10); EOSINOPHILS # (AUTO) 0.2 10^3/uL (0.0-0.3); EOSINOPHILS % (AUTO) 3 % (0-10); HEMATOCRIT 45 % (40-54); HEMOGLOBIN 14.5 g/dL (13.3-17.7); LYMPHOCYTES # (AUTO) 1.2 10^3/uL (1.0-4.0); LYMPHOCYTES % (AUTO) 18 % (12-44); MEAN CORPUSCULAR HEMOGLOBIN 31 pg (25-34); MEAN CORPUSCULAR HGB CONC 33 g/dL (32-36); MEAN CORPUSCULAR VOLUME 96 fL (80-99); MEAN PLATELET VOLUME 10.2 fL (9.0-12.2); MONOCYTES % (AUTO) 15 % (0-12); NEUTROPHILS # (AUTO) 4.2 10^3/uL (1.8-7.8); NEUTROPHILS % (AUTO) 63 % (42-75); PLATELET COUNT 179 10^3/uL (130-400); WHITE BLOOD COUNT 6.7 10^3/uL (4.3-11.0)
[2020-12-13 09:15] LABS: ALBUMIN 3.5 GM/DL (3.2-4.5); BILIRUBIN,TOTAL 0.7 MG/DL (0.1-1.0); CALCIUM 9.4 MG/DL (8.5-10.1); CREATININE SERUM 1.59 MG/DL (0.60-1.30); POTASSIUM 3.8 MMOL/L (3.6-5.0); TOTAL PROTEIN 5.8 GM/DL (6.4-8.2)
[~2020-12-17 08:59] MED LIST changes: -MAGN400T8 PO; +MGX400T PO; -SULF1TAB35 PO; +SULF1TAB38 PO
== END 2021-03-13 | disposition home or self-care (01) ==
LOC: ONC 08:59
PROVIDERS: ATTEND Internal Medicine Hematology & Oncology
DX: C83.30 Diffuse large B-cell lymphoma, unspecified site (principal); C83.50 Lymphoblastic (diffuse) lymphoma, unspecified site; E11.9 Type 2 diabetes mellitus without complications; E78.5 Hyperlipidemia, unspecified; R74.02 Elevation of levels of lactic acid dehydrogenase [LDH]; Z90.49 Acquired absence of other specified parts of digestive tract
CPT/HCPCS: 80053; 83615; 85025; 99213

== ENCOUNTER → 2021-01-03 | Outpatient (CLI) | payer MEDICARE ==
[~2021-01-03] MED LIST changes: +MAGN400T8 PO; -MGX400T PO
== END ==
LOC: CARD 08:30
PROVIDERS: ATTEND Internal Medicine Cardiovascular Disease
DX: I08.3 Combined rheumatic disorders of mitral, aortic and tricuspid valves (principal); I11.9 Hypertensive heart disease without heart failure; I25.10 Atherosclerotic heart disease of native coronary artery without angina pectoris
CPT/HCPCS: 93306

== ENCOUNTER 2021-06-26 10:25 | Outpatient (RCR) | payer MEDICARE ==
[2021-06-18 10:05] LABS: BASOPHILS # (AUTO) 0.1 10^3/uL (0.0-0.1); BASOPHILS % (AUTO) 1 % (0-10); EOSINOPHILS # (AUTO) 0.1 10^3/uL (0.0-0.3); EOSINOPHILS % (AUTO) 2 % (0-10); HEMATOCRIT 45 % (40-54); HEMOGLOBIN 14.6 g/dL (13.3-17.7); LYMPHOCYTES # (AUTO) 0.8 10^3/uL (1.0-4.0); LYMPHOCYTES % (AUTO) 12 % (12-44); MEAN CORPUSCULAR HEMOGLOBIN 31 pg (25-34); MEAN CORPUSCULAR HGB CONC 33 g/dL (32-36); MEAN CORPUSCULAR VOLUME 95 fL (80-99); MONOCYTES % (AUTO) 14 % (0-12); NEUTROPHILS # (AUTO) 4.9 10^3/uL (1.8-7.8); NEUTROPHILS % (AUTO) 70 % (42-75); PLATELET COUNT 200 10^3/uL (130-400)
[2021-06-18 10:24] LABS: ALBUMIN 3.6 GM/DL (3.2-4.5); CREATININE SERUM 1.89 MG/DL (0.60-1.30); POTASSIUM 4.3 MMOL/L (3.6-5.0)
[~2021-06-26 10:25] MED LIST changes: -MAGN400T8 PO; +MGX400T PO
== END 2021-07-03 | disposition home or self-care (01) ==
LOC: ONC 10:25
PROVIDERS: ATTEND Internal Medicine Hematology & Oncology
DX: C83.30 Diffuse large B-cell lymphoma, unspecified site (principal); E11.22 Type 2 diabetes mellitus with diabetic chronic kidney disease; N18.9 Chronic kidney disease, unspecified; I48.91 Unspecified atrial fibrillation; E78.5 Hyperlipidemia, unspecified; I50.9 Heart failure, unspecified; Z90.49 Acquired absence of other specified parts of digestive tract
CPT/HCPCS: 36415; 80053; 83615; 85025; 99213

== ENCOUNTER 2022-03-04 07:08 | Day surgery (SDC) | payer MEDICARE ==
[2022-03-04] VITALS (13 sets, daily range): BP systolic 112–156; BP diastolic 67–93
[~2022-03-04] VITALS: Ht 177.8 cm; Wt 85.8 kg
[~2022-03-04 07:08] MED LIST changes: +ACET-11 PO; -ACET1TAB43 PO
[2022-03-04] MEDS ORDERED: LIDOCAINE 1% INJ 30 ML (XYLOCAINE) VIAL ONE (07:13)
[2022-03-04] MEDS ORDERED: HEParin (CATH LAB) 2,000 ML IV ONE (07:13)
[2022-03-04] MEDS ORDERED: NS IV 1000 ML 1,000 ML ONE (07:13)
[2022-03-04] MEDS ORDERED: NS IV 1000 ML 1,000 ML IV SCH ×2 (07:15→10:30)
[2022-03-04 07:38] LABS: BILIRUBIN,URINE NEGATIVE (NEGATIVE); CLARITY,URINE CLEAR; COLOR,URINE YELLOW; GLUCOSE, URINE (UA) 2+ (NEGATIVE); KETONES,URINE NEGATIVE (NEGATIVE); LEUKOCYTE ESTERASE ,URINE NEGATIVE (NEGATIVE); NITRITE,URINE NEGATIVE (NEGATIVE); PH,URINE 5.5 (5-9); PROTEIN,URINE 1+ (NEGATIVE)
[2022-03-04] MEDS ORDERED: fentaNYL INJ 100 MCG/2 ML AMP ONE (07:43)
[2022-03-04 07:44] LABS: BACTERIA,URINE NEGATIVE /HPF; SQUAMOUS EPITHELIAL CELL,UR RARE /HPF
[2022-03-04] MEDS ORDERED: MIDAZOLAM 5 MG/5 ML (VERSED) VIAL ONE (07:44)
[2022-03-04] MEDS ORDERED: GABA-486 PO (07:57)
[2022-03-04] MEDS ORDERED: ACET325T38 PO (07:57)
[2022-03-04] MEDS ORDERED: POLY30DR6 OP (07:57)
[2022-03-04] MEDS ORDERED: SACU1TAB2 PO (07:57)
[2022-03-04] MEDS ORDERED: RIVA20TA PO (07:57)
[2022-03-04] MEDS ORDERED: AMIO200T65 PO (07:57)
[2022-03-04] MEDS ORDERED: ERGO1250 PO (07:57)
--- NOTE | 2022-03-04 07:59 | Diagnostic Imaging Report ---
INDICATION: Fatigue. Comparison with 09/28/2019. FINDINGS: The heart is not enlarged. The lungs are well-aerated and clear. No evidence of pulmonary edema. No pneumothorax or pleural effusion. IMPRESSION: Normal portable chest. Dictated by: Dictated on workstation # [id number]
[2022-03-04 08:03] LABS: PROTHROMBIN TIME PATIENT 13.3 SEC (12.2-14.7)
[2022-03-04 08:10] LABS: ALBUMIN 3.7 GM/DL (3.2-4.5); BILIRUBIN,TOTAL 0.9 MG/DL (0.1-1.0); CREATININE SERUM 1.85 MG/DL (0.60-1.30); POTASSIUM 3.8 MMOL/L (3.6-5.0); TOTAL PROTEIN 6.3 GM/DL (6.4-8.2)
--- NOTE | 2022-03-04 08:30 | Cardiac Procedure Note-CS/ASA ---
Pre-Procedure Note Pre-Op Procedure Note Date of Available H&P: Feb 19, 2022 Date H&P Reviewed: Mar 04, 2022 Time H&P Reviewed: 08:30 History & Physical: H&P Reviewed, Patient Examed, No changes noted Pre-Operative Diagnosis: PAD Conscious Sedation Pre-Proced Time 08:30 ASA Score 3 For ASA 3 and 4: Consider anesthesia and medical clearance. Also, for patients with a history of failed moderate sedation consider anesthesia. Airway Lungs Heart ASA score ASA 1: a normal healthy patient ASA 2: a patient with a mild systemic disease (mid diabetes, controlled hypertension, obesity ASA 3: a patient with a severe systemic disease that limits activity (angina, COPD, prior Myocardial infarction) ASA 4: a patient with an incapacitating disease that is a constant threat to life (CHF, renal failure) ASA 5: a moribund patient not expected to survive 24 hrs. (ruptured aneurysm) ASA 6: a declared brain- patient whose organs are being harvested. For emergent operations, add the letter E after the classification Mallampati Classification Grade 3 Sedation Plan Analgesia, Amnesia, Plan communicated to team members, Discussed options with patient/fam, Discussed risks with patient/fam The patient is an appropriate candidate to undergo the planned procedure, sedation, and anesthesia. The patient immediately re-assessed prior to indication. CAROLE INGRAM MD Mar 04, 2022 08:30
[2022-03-04 09:18] LABS: BASOPHILS % (AUTO) 0 % (0-10); EOSINOPHILS # (AUTO) 0.1 10^3/uL (0.0-0.3); EOSINOPHILS % (AUTO) 2 % (0-10); HEMATOCRIT 39 % (40-54); HEMOGLOBIN 12.3 g/dL (13.3-17.7); LYMPHOCYTES # (AUTO) 1.3 10^3/uL (1.0-4.0); LYMPHOCYTES % (AUTO) 19 % (12-44); MEAN CORPUSCULAR HEMOGLOBIN 29 pg (25-34); MEAN CORPUSCULAR HGB CONC 32 g/dL (32-36); MEAN CORPUSCULAR VOLUME 92 fL (80-99); MONOCYTES % (AUTO) 15 % (0-12); NEUTROPHILS # (AUTO) 4.3 10^3/uL (1.8-7.8); NEUTROPHILS % (AUTO) 63 % (42-75); PLATELET COUNT 243 10^3/uL (130-400); WHITE BLOOD COUNT 6.7 10^3/uL (4.3-11.0)
[2022-03-04] MEDS ORDERED: HEParin 1000 UNIT/ML (10ML VIAL) FOR BOLUS ONE (09:25)
[2022-03-04] MEDS ORDERED: NITRO DRIP 25000 MCG/D5W 250 ML IV ONE (09:46)
[2022-03-04] MEDS ORDERED: ASPIRIN 325 MG (5 GR) TABLET ONE (10:20)
[2022-03-04] MEDS ORDERED: CLOPIDOGREL 300 MG (PLAVIX) TABLET PO ONE (10:20)
[2022-03-04] MEDS ORDERED: PATIENT MAY USE OWN MEDS, ALL PO SCH (10:30)
--- NOTE | 2022-03-04 10:38 | Peripheral Report ---
Peripheral Report Physician (s)/Enterprise Application Analyst (s) Physician CAROLE INGRAM MD Pre-Procedure Diagnosis Pre-Procedure Diagnosis: PAD Post-Procedure Note Procedure Start Date: Mar 04, 2022 Name of Procedure: Bilateral lower extremity runoff Third order Additional imaging FINANCIAL SOLUTIONS ADVISOR to the right posterior tibial artery FINANCIAL SOLUTIONS ADVISOR to the right peroneal artery Findings/Procedure Note PROCEDURE NOTE: 76-year-old gentleman with history of diabetes mellitus, peripheral arterial disease, has nonhealing wound on his right lower extremity, scheduled for peripheral runoff and angiogram with possible intervention. After explaining the procedure to the patient, all pros and cons were explained, all questions were answered. The patient signed the consent and then he was placed on the cardiac catheterization laboratory. The patient was placed on the cardiac catheterization laboratory. Groin was prepped SL fashion local anesthesia was used. Sheath placed in the left femoral artery, runoff with 5 mL of contrast was done to the left leg then a rim catheter was placed at the bifurcation and runoff to the right leg was done then I advanced a Storq wire down to the popliteal artery and advanced straight catheter placed in the popliteal artery and did DSA imaging to the trifurcation and DSA imaging at the level of the foot. Patient had total occlusion of the posterior tibial artery and peroneal artery proximally and occlusion of the anterior tibial artery distally. Total of 7000 units of heparin were given. Long sheath was used advanced to the distal SFA then I advanced a command 18 in the proximal posterior tibial artery then I advanced [place] 2.5 x 40. Had difficulty advancing the wire so I retracted the wire and did an injection through the balloon in the posterior tibial artery then I advanced a command 14 wire and proceeded with balloon angioplasty to the posterior tibial artery in the proximal and midportion, then I used [place] 14, 2.5 x 80 and did long inflation in the posterior tibial artery then I retracted the balloon and redirected the wire to the peroneal artery also I could not advance beyond the midportion did a single inflation in the proximal peroneal artery. Balloon was retracted and I advanced a straight catheter and gave nitroglycerin did DSA imaging again at the level of the trifurcation and another DSA imaging at the level of the foot. Sheath was retracted and exchanged to a short 6 Portuguese sheath then closure device deployed. FINDINGS: Left lower extremity: Angiogram was done through the sheath showing slow flow with no significant obstructive disease down to the trifurcation. Right lower extremity: Calcified proximally with nonobstructive disease at the right common iliac and common femoral and SFA and popliteal artery. Right anterior tibial artery, total occlusion at the level of the ankle. Fairly small artery. Right posterior tibial artery, total occlusion proximally, successful balloon angioplasty in the proximal and midportion, the artery is occluded distally reconstructed by collaterals at the level of the ankle Right peroneal artery, total occlusion proximally, balloon angioplasty to the proximal portion, the distal portion continue to be occluded CONCLUSIONS: 1. Severe small vessel disease with occlusion of the posterior tibial artery, balloon angioplasty to the proximal and mid posterior tibial artery, occluded distal posterior tibial artery that did not improve after the intervention 2. Total occlusion of the right peroneal artery distally. 3. Total occlusion of the anterior tibial artery distally at the level of the ankle, fairly small artery 4. Small vessel disease, calcified arteries on the left, no significant obstructive disease down to the trifurcation, below the trifurcation did not visualize the artery. DISCUSSION AND RECOMMENDATIONS: Patient could benefit from pedal access through the posterior tibial artery and retrograde intervention. Will discuss with the patient and family regarding referral to a tertiary care center Anesthesia Type: Conscious Sedation Estimated blood loss (mL): 20 ml Contrast Amount: 30 ml Total Radiation Dose: 175 mGy Post-Procedure Diagnosis Post-operative diagnosis: Critical limb ischemia Ischemic foot ulcer Peripheral arterial disease Hypertension Hyperlipidemia Diabetes mellitus CAROLE INGRAM MD Mar 04, 2022 10:38
[2022-03-04] MEDS ORDERED: ATOR20TA66 PO (13:44)
[2022-03-04] MEDS ORDERED: CLOP75TA28 PO (13:44)
--- NOTE | 2022-03-04 13:45 | Discharge Inst-Post CATH ---
Discharge Inst-CATH/EP Problems Reviewed?: Yes Post Cardiac Cath/EP D/C Inst Follow Up/Plan Appointment with Dr. Quiroz's office in 1 to 2 weeks <b>CARDIAC CATH/EP PROCEDURE DISCHARGE INSTRUCTIONS</b> ACTIVITY * Go Home directly and rest. * Limit activity of the leg (or wrist if it was used) for 7 days including aer obics, swimming, jogging, bicycling, etc. * Restrict stair-climbing for 7 days if possible, if not, climb up with your non-cath leg, then bring together on the same step. * Avoid lifting, pushing, pulling or excessive movement of the affected extremi ty for 7 days. * Customary sexual activity may be resumed after 2 days-use caution not to use a position that strains or causes pain to the affected extremity. * No driving for 24 hours. * NO SMOKING. * Avoid straining for bowel movements for 7 days. * Gentle walking on level ground is allowed. * Returning to work will depend on the type of procedure and the results. Your doctor will discuss this with you. CALL YOUR DOCTOR FOR ANY OF THE FOLLOWING: *If bleeding from the puncture site occurs- Apply gentle pressure to site with clean cloth and call your doctor or EMS. * If a knot or lump forms under the skin, increases in size, or causes pain. * If bruising appears to be worsening or moving further down your leg instead of disappearing. * Temperature above 101 F. CARE OF YOUR GROIN INCISION; * Bruising or purple discoloration of the skin near the puncture site is common. * You may shower only, no bathtub bathing for 5 days. Be careful to avoid slipping as your leg may feel stiff. * If a closure device was used on your femoral artery, please see the attached guide regarding care of the device and your leg. * Leave dressing on FOR 24 hours. CARE OF YOUR WRIST INCISION; * Bruising or purple discoloration of the skin near the puncture site is common. * You may shower. * DO NOT submerge wrist. * Leave dressing on FOR 24 hours. CAROLE QUIROZ MD Mar 04, 2022 13:45
[2022-03-04] MEDS ORDERED: RIVAROXABAN 15 MG TABLET (XARELTO) PO SCH (17:00)
[2022-03-04] MEDS ORDERED: SACUBITRIL/VALSARTAN 24/26 MG (ENTRESTO) TABLET PO SCH (21:00)
[2022-03-04] MEDS ORDERED: GABAPENTIN 100 MG (NEURONTIN) CAP PO SCH (21:00)
[2022-03-05] MEDS ORDERED: AMIODARONE 200 MG (CORDARONE) TAB PO SCH (09:00)
[2022-03-05] MEDS ORDERED: CLOPIDOGREL 75 MG (PLAVIX) TABLET PO SCH (09:00)
[2022-03-05] MEDS ORDERED: ASPIRIN E.C. 81 MG (ECOTRIN) TAB PO SCH (09:00)
[2022-03-05] MEDS ORDERED: predniSONE 5 MG TAB PO SCH (09:00)
== END 2022-03-04 16:20 | disposition home or self-care (01) ==
LOC: CATH 07:08 → CSD 10:53 → CATH 16:20
PROVIDERS: ATTEND Internal Medicine Cardiovascular Disease
DX: I70.221 Atherosclerosis of native arteries of extremities with rest pain, right leg (principal); I70.92 Chronic total occlusion of artery of the extremities; E11.621 Type 2 diabetes mellitus with foot ulcer; L97.509 Non-pressure chronic ulcer of other part of unspecified foot with unspecified severity; I11.0 Hypertensive heart disease with heart failure; I50.9 Heart failure, unspecified; E78.2 Mixed hyperlipidemia; I65.29 Occlusion and stenosis of unspecified carotid artery; I48.0 Paroxysmal atrial fibrillation; Z87.891 Personal history of nicotine dependence; Z79.4 Long term (current) use of insulin
CPT/HCPCS: 36247; 36248; 37228; 37232; 71045; 75716; 80053; 80061; 81000; 85025; 85347; 85610; 85730; 87081; 93005; C1725 ×2; C1760; C1769 ×3; C1887 ×2; C1894 ×3; 36415

== ENCOUNTER 2022-03-06 09:25 | Emergency (ER) | payer MEDICARE ==
[~2022-03-06] VITALS: Ht 177.8 cm; Wt 86.2 kg
[~2022-03-06 09:25] MED LIST changes: +ACET325T38 PO; +AMIO200T65 PO; +ATOR20TA66 PO; +CLOP75TA28 PO; +ERGO1250 PO; +GABA-486 PO; +POLY30DR6 OP; +RIVA20TA PO
[2022-03-06] MEDS ORDERED: ONDANSETRON 4 MG/2 ML (SDV) Z0FRAN IVP ONE (10:45)
[2022-03-06] MEDS ORDERED: NS IV 1000 ML 1,000 ML IV SCH (11:15)
--- NOTE | 2022-03-06 11:16 | ED General ---
General Chief Complaint: Abdominal/GI Problems Stated Complaint: DIZZINESS | VOMITING Nursing Triage Note: PT AMB TO RM 10 WITH COMPLAINT OF N/V/ DIZZINESS. STATES ON WEDNESDAY HE HAD A CATH BY DR QUIROZ TO LOOK AT VESSELS ON HIS RIGHT LEG. PT HAS SIGNIFICANT BRUISING AND SWELLING AROUND CATHETER INSERTION SITE ON LEFT GROIN. STATES WHEN HE GOT HOME ON WEDNESDAY HE BEGAN WITH VOMITING AND IS HAVING DIFFICULTY KEEPING FOOD DOWN. Source of Information: Patient, Family () Exam Limitations: No Limitations History of Present Illness Date Seen by Provider: Mar 06, 2022 Time Seen by Provider: 10:57 Initial Comments Patient is a 76-year-old who presents to the emergency room with a chief co mplaint of dizziness precipitated by position change. He states he has had this ongoing for about the last 24 hours. Patient had admission on Wednesday for angiogram of right lower extremity. Dr. Quiroz accessed the left groin and was evaluating blood flow to the right foot due to chronic wounds of the right toes. Patient states the last time he had anything to eat was Wednesday evening. Since that time he has only had a half a can of tomato soup and some tea at about 4:00 this morning. He states that the dizziness is a spinning sensation that occurs when he lays back or sits up. It takes about 40 seconds or so for him to be abl e to "get his bearings" and move around. He denies a headache. No unilateral numbness weakness or tingling. He states he has had persistent nausea and vomiting but has not vomited since about 4 AM this morning. He complains of some discomfort to the left groin and remembers that Dr. Quiroz seemed to have quite a bit of difficulty accessing his groin on Wednesday. Significant br uising is developed to the left groin and thigh. He is supposed to be anticoagulated on Xarelto but has not taken back or any of his medications since Wednesday night. He is a diabetic with an insulin pump. His blood sugars have been running about 130. No reported fevers or chills. He did have a cough this morning and after that felt a little more discomfort than usual in the left groin felt like a pain was running down the inside of his left thigh. All other review of systems reviewed and negative except as stated. Timing/Duration: 2-3 Days Severity: Severe Modifying Factors: worse with Movement; improves with Rest Associated Systoms: Nausea/Vomiting, Other (dizziness) Allergies and Home Medications Allergies Coded Allergies: hydrocodone (Verified Allergy, Intermediate, RASH, 07/14/17) oxycodone (Verified Allergy, Intermediate, RASH, 07/14/17) formaldehyde (Verified Allergy, Unknown, 12/20/07) Patient Home Medication List Home Medication List Reviewed: Yes Acetaminophen (Tylenol) 325 Mg Tablet, 650 MG PO Q6H PRN for PAIN-MILD (1-4), (Reported) Entered as Reported by: GALEN MICHAELS on 03/04/22 075 Amiodarone HCl (Amiodarone HCl) 200 Mg Tablet, 200 MG PO DAILY, (Reported) Entered as Reported by: GALEN MICHAELS on 03/04/22 075 Atorvastatin Calcium (Atorvastatin Calcium) 20 Mg Tablet, 20 MG PO HS Prescribed by: CAROLE QUIROZ on 03/04/22 134 Clopidogrel Bisulfate (Clopidogrel) 75 Mg Tablet, 75 MG PO DAILY Prescribed by: CAROLE QUIROZ on 03/04/22 134 Ergocalciferol (Vitamin D2) (Vitamin D2) 1,250 Mcg (58007 Unit) Capsule, 1,250 MCG PO WEDNESDAY, (Reported) Entered as Reported by: GALEN MICHAELS on 03/04/22 075 Gabapentin (Gabapentin) 100 Mg Capsule, 100 MG PO HS, (Reported) Entered as Reported by: GALEN MICHAELS on 03/04/22 075 Hydrochlorothiazide (Hydrochlorothiazide) 25 Mg Tablet, 25 MG PO DAILY, (Reported) Entered as Reported by: ANGIE KATZ on 07/14/17 1235 Insulin Aspart (Niacinamide) (Fiasp 100 Unit/ml Vial) 100 Unit/Ml Vial, UNIT SQ PER PUMP, (Reported) Entered as Reported by: GERARDO HUIZAR on 08/02/19 0805 Metoprolol Succinate (Metoprolol Succinate) 25 Mg Tab.er.24h, 25 MG PO DAILY, (Reported) Entered as Reported by: ANGIE KATZ on 07/14/17 1235 Polyethylene Glycol 400 (Visine Dry Eye Relief) 1 % Drops, 1 DROP OP HS, (Reported) Entered as Reported by: GALEN MICHAELS on 03/04/22 075 Prednisone (Prednisone) 5 Mg Tablet, 5 MG PO DAILY, (Reported) Entered as Reported by: ANGIE KATZ on 04/03/19 1120 Rivaroxaban (Xarelto) 20 Mg Tablet, 20 MG PO WITH SUPPER, (Reported) Entered as Reported by: GALEN MICHAELS on 03/04/22 0757 Sacubitril/Valsartan (Entresto 24 mg-26 mg Tablet) 24 Mg-26 Mg Tablet, 1 TAB PO BID, (Reported) Entered as Reported by: GALEN MICHAELS on 03/04/22 0757 Discontinued Medications Aspirin (Aspirin EC) 81 Mg Tablet.dr, 81 MG PO DAILY, (Reported) Discontinued Reason: No Longer Taking Entered as Reported by: ANGIE KATZ on 07/14/17 1235 Cyclobenzaprine HCl (Cyclobenzaprine HCl) 5 Mg Tablet, 5 PO Q8H PRN for MUSCLE SPASMS, (Reported) Discontinued Reason: No Longer Taking Entered as Reported by: GAYE SHAHID on 09/28/19653 Pantoprazole Sodium (Protonix) 40 Mg Tablet., 40 MG PO DAILY Discontinued Reason: No Longer Taking Prescribed by: THERESA HERRERA on 02/07/20 1132 Sacubitril/Valsartan (Entresto 24 mg-26 mg Tablet) 1 Each Tablet, 1 TAB PO BID, (Reported) Discontinued Reason: Duplicate Order Entered as Reported by: ANGIE KATZ on 07/14/17 1235 Tramadol HCl (Tramadol HCl) 50 Mg Tablet, 50 MG PO BID PRN for PAIN-MODERATE (5- 7), (Reported) Discontinued Reason: No Longer Taking Entered as Reported by: GAYE SHAHID on 09/28/19653 Valacyclovir HCl (Valacyclovir) 1,000 Mg Tablet, 1,000 MG PO BID, (Reported) Discontinued Reason: No Longer Taking Entered as Reported by: GAYE SHAHID on 09/28/19653 Review of Systems Review of Systems Constitutional: see HPI, dizziness, malaise, weakness Respiratory: no symptoms reported Cardiovascular: no symptoms reported Gastrointestinal: nausea, vomiting Genitourinary: no symptoms reported Musculoskeletal: no symptoms reported Skin: change in color (bruising left groin) Psychiatric/Neurological: Denies Headache, Denies Numbness, Denies Paresthesia, Denies Tremors; Weakness All Other Systems Reviewed Negative Unless Noted: Yes Past Ajdffva-Vrlvps-Tvrtbr Hx Patient Social History Tobacco Use?: No Use of E-Cig and/or Vaping dev: No Substance use?: No Alcohol Use?: Yes Alcohol Frequency: Daily Pt feels they are or have been: No Immunizations Up To Date Tetanus Booster (TDap): Unknown PED Vaccines UTD: Yes Seasonal Allergies Seasonal Allergies: No Past Medical History Surgeries: Yes (COLON RESECTION/COLOSTOMY/REVERSAL; HERNIA REPAIR;PORT R CHEST) Abdominal, Bowel Surgery, Cardiac, Gallbladder, Orthopedic, Penile Implant, Renal, Transurethral Resection, Vascular Surgery Respiratory: No Currently Using BIPAP: No Cardiac: Yes Irregular Heartbeat Neurological: Yes Neuropathy Reproductive Disorders: No Sexually Transmitted Disease: No HIV/AIDS: No Genitourinary: Yes (TURP, CYSTOSCOPIES; URETERAL OBSTRUCTION DUE TO LYMPHOMA) Benign Prostatic Hyperpl, Prostate Problems, Bladder Infection Gastrointestinal: Yes (COLON RESECTION/COLOSTOMY/REVERSAL ) Abdominal Hernia, Gastroesophageal Reflux, Obstructive Bowel, Chronic Constipation Musculoskeletal: Yes Rheumatoid Arthritis Endocrine: Yes (INSULIN PUMP) Diabetes, Insulin dep HEENT: No Cancer: Yes (NON HODGKIN'S LYMPHOMA DX 2014--CURRENTLY IN REMISSION) Lymphoma, Colon Did You Recieve Any Treatments: Yes What Type of Treatment Did You: Chemotherapy, Other Psychosocial: No Integumentary: Yes (shingles) Blood Disorders: No Adverse Reaction/Blood Tranf: No Family Medical History Congestive heart failure 19 MOTHER Family history: Diabetes mellitus 19 MOTHER No Family History of: Abdominal aortic aneurysm Alcoholism Cancer Dementia Family history: Allergy Family history: Alzheimer's disease Family history: Arthritis Family history: Asthma Family history: Breast disease Family history: Cardiovascular disease Family history: Gastrointestinal disease Family history: Thyroid disorder Myocardial infarction Psychotic disorder Seizure disorder Stroke 08/02/19--PERIPHERAL ANGIOGRAM--SMALL VESSEL DISEASE, NO INTERVENTION. 06/21/19--NORMAL COLONOSCOPY Physical Exam Vital Signs Vital Signs - First Documented 03/06/22 09:55 Pulse 85 Resp 16 B/P (MAP) 142/99 (113) Pulse Ox 97 O2 Delivery Room Air Capillary Refill : Less Than 3 Seconds Height, Weight, BMI Height: 5'10.00" Weight: 187lbs. 2.0oz. 84.050526hy; 27.00 BMI Method:Estimated General Appearance: No Apparent Distress, Other (appears chronically ill) HEENT: PERRL/EOMI, Other (dry oral mucosa) Respiratory: Lungs Clear, Normal Breath Sounds, No Accessory Muscle Use, No Respiratory Distress Cardiovascular: Regular Rate, Rhythm, Normal Peripheral Pulses Gastrointestinal: Non Tender, Soft Extremity: Normal Range of Motion, No Calf Tenderness, Other (diminished pulses bilateral feet. 2+ pulse left femoral; significant ecchymoses to the left groin and upper thigh) Neurologic/Psychiatric: Alert, Oriented x3, No Motor/Sensory Deficits, Normal Mood/Affect Skin: Normal Color, Warm/Dry Procedures/Interventions Suture Size: 4-0, 5-0 Progress/Results/Core Measures Suspected Sepsis SIRS Temperature: Pulse: 85 Respiratory Rate: 16 Laboratory Tests 03/06/22 12:00: White Blood Count 8.7 Blood Pressure 142 /99 Mean: 113 Laboratory Tests 03/06/22 11:22: Creatinine 1.58H 03/06/22 12:00: Platelet Count 193 Results/Orders Lab Results Laboratory Tests Test 03/06/22 11:22 03/06/22 12:00 Range/Units Sodium Level 140 135-145 MMOL/L Potassium Level 4.1 3.6-5.0 MMOL/L Chloride Level 104 98-107 MMOL/L Carbon Dioxide Level 24 21-32 MMOL/L Anion Gap 12 5-14 MMOL/L Blood Urea Nitrogen 28 H 7-18 MG/DL Creatinine 1.58 H 0.60-1.30 MG/DL Estimat Glomerular Filtration Rate 45 BUN/Creatinine Ratio 18 Glucose Level 146 H 70-105 MG/DL Calcium Level 9.0 8.5-10.1 MG/DL White Blood Count 8.7 4.3-11.0 10^3/uL Red Blood Count 3.50 L 4.30-5.52 10^6/uL Hemoglobin 10.0 L 13.3-17.7 g/dL Hematocrit 32 L 40-54 % Mean Corpuscular Volume 91 80-99 fL Mean Corpuscular Hemoglobin 29 25-34 pg Mean Corpuscular Hemoglobin Concent 31 L 32-36 g/dL Red Cell Distribution Width 14.6 H 10.0-14.5 % Platelet Count 193 130-400 10^3/uL Mean Platelet Volume 10.4 9.0-12.2 fL Immature Granulocyte % (Auto) 1 % Neutrophils (%) (Auto) 76 H 42-75 % Lymphocytes (%) (Auto) 8 L 12-44 % Monocytes (%) (Auto) 14 H 0-12 % Eosinophils (%) (Auto) 0 0-10 % Basophils (%) (Auto) 1 0-10 % Neutrophils # (Auto) 6.6 1.8-7.8 10^3/uL Lymphocytes # (Auto) 0.7 L 1.0-4.0 10^3/uL Monocytes # (Auto) 1.2 H 0.0-1.0 10^3/uL Eosinophils # (Auto) 0.0 0.0-0.3 10^3/uL Basophils # (Auto) 0.0 0.0-0.1 10^3/uL Immature Granulocyte # (Auto) 0.1 0.0-0.1 10^3/uL My Orders Orders - KRISHAN EL MD Ed Iv/Invasive Line Start (03/06/22 10:36) Cbc With Automated Diff (03/06/22 10:36) Basic Metabolic Panel (03/06/22 10:36) Ondansetron Injection (Zofran Injectio (03/06/22 10:45) Ns Iv 1000 Ml (Sodium Chloride 0.9%) (03/06/22 11:15) Us Left Low Ext Arterial 99975 (03/06/22 11:10) Magnesium 1 Gm/100 Ml Ivpb (Magnesium Toney (03/06/22 12:15) Ekg Tracing (03/06/22 12:13) Meclizine Tablet (Antivert Tablet) (03/06/22 12:45) Medications Given in ED Current Medications Medications Dose Ordered Sig/Lesly Route Start Time Stop Time Status Last Admin Dose Admin Ondansetron HCl 4 mg ONCE ONCE IVP 03/06/22 10:45 03/06/22 10:46 DC 03/06/22 11:23 4 MG Vital Signs/I&O 03/06/22 09:55 Pulse 85 Resp 16 B/P (MAP) 142/99 (113) Pulse Ox 97 O2 Delivery Room Air Capillary Refill : Less Than 3 Seconds Blood Pressure Mean: 113 Progress Note : Time: 12:46 Progress Note Patient seen and evaluated, 76-year-old with vertiginous symptoms. Onset over the last 24 hours. Exam is unremarkable for any acute neurologic deficit. His vital signs are stable. He is also complaining of some discomfort to the left groin, ultrasound was obtained which did show a small pseudoaneurysm less than 3 cm. I discussed this finding with Dr. Quiroz who states that he will follow him up regarding this next week. No concern for immediate intervention per Dr. Quiroz. Patient was given some Zofran for nausea, also 1 L of IV fluids. I am also giving him some meclizine for dizziness. Labs reviewed blood sugar is good and renal function at baseline. Will d/c to home wo advance diet as tolerated and with phenergan and meclizine. He is tolerating water at the time of discharge. ECG Initial ECG Impression Date: Mar 06, 2022 Initial ECG Impression Time: 12:39 Initial ECG Rate: 75 Initial ECG Rhythm: Normal Sinus Initial ECG Intervals KS 75 QRS [address] segment elevation or depression. No ectopy is noted. Slightly prolonged QTC at 472. No ST segment elevation or depression Diagnostic Imaging Diagonstic Imaging: Ultrasound Comments [facility], [place] NAME: NILO ROGERS [facility] REC#: [id number] PT STATUS: REG ER : 1945 PHYSICIAN: KRISHAN EL MD ADMIT DATE: 03/06/22/ER Draft Date of Exam:03/06/22 US LEFT LOW EXT ARTERIAL [id number] Exam: Ultrasound left lower extremity Doppler. Date: March 24, 2022. Indication: 76-year-old male, evaluation for left inguinal pseudoaneurysm. Comparison: CT abdomen and pelvis April 02, 2019. Findings: There is a 2.8 x 2.0 x 2.4 cm pseudoaneurysm associated with the left common femoral artery with internal blood flow. There is a normal waveform in the left common femoral vein. Impression: 1. Pseudoaneurysm measuring 2.8 x 2.0 x 2.4 cm in size associated with the left common femoral artery with internal blood flow. 2. No evidence of an arteriovenous fistula Dictated on workstation # [id number] Dict: 03/06/22 1233 Trans: 03/06/22 1238 CVB [id number] Interpreted by: NANO NOEL MD Electronically signed by: Departure Impression Primary Impression: Nausea and vomiting Qualified Codes: R11.2 - Nausea with vomiting, unspecified Additional Impressions: Vertigo Pseudoaneurysm following procedure Disposition: 01 HOME, SELF-CARE Condition: Improved Departure-Patient Inst. Decision time for Depature: 12:51 Referrals: CAROLE QUIROZ MD, ADAM S DO (PCP/Family) Primary Care Physician Patient Instructions: Nausea and Vomiting, Adult (DC), Vertigo ED Add. Discharge Instructions: You do have a small pseudoaneurysm at the groin site on the left. This does not need any emergent treatment according to Dr. Quiroz. He wants to see you in his clinic early next week. Please call his office Wednesday morning for an appointment. I have sent a prescription for meclizine which can be used for dizziness/vertigo. You can take 1 every 6 hours as needed for dizzy symptoms. I have also sent a prescription for Phenergan. This medication is used for nausea. This will help you to be able to eat and drink. It may make you a little sleepy. Take 1/2 tablet every 6 hours as needed for nausea and vomiting. If you have any worsening symptoms of vomiting especially with abdominal pain, fever, blood in your vomit or stool please come back to the emergency department for reevaluation. You must restart taking your daily medications including your blood thinner today. Scripts Promethazine HCl (Promethazine Tablet) 25 Mg Tablet 12.5 MG PO Q6H PRN for NAUSEA/VOMITING, #15 TAB Prov: KRISHAN EL MD 03/06/22 Meclizine HCl (Meclizine HCl) 25 Mg Tablet 25 MG PO Q6H PRN for dizziness, #20 TAB Prov: KRISHAN EL MD 03/06/22 KRISHAN EL MD Mar 06, 2022 11:16
[2022-03-06 11:47] LABS: CREATININE SERUM 1.58 MG/DL (0.60-1.30)
[2022-03-06 12:01] LABS: POTASSIUM 4.1 MMOL/L (3.6-5.0)
[2022-03-06 12:10] LABS: BASOPHILS % (AUTO) 1 % (0-10); EOSINOPHILS % (AUTO) 0 % (0-10); HEMATOCRIT 32 % (40-54); LYMPHOCYTES # (AUTO) 0.7 10^3/uL (1.0-4.0); LYMPHOCYTES % (AUTO) 8 % (12-44); MEAN CORPUSCULAR HEMOGLOBIN 29 pg (25-34); MEAN CORPUSCULAR HGB CONC 31 g/dL (32-36); MEAN CORPUSCULAR VOLUME 91 fL (80-99); MEAN PLATELET VOLUME 10.4 fL (9.0-12.2); MONOCYTES # (AUTO) 1.2 10^3/uL (0.0-1.0); MONOCYTES % (AUTO) 14 % (0-12); NEUTROPHILS # (AUTO) 6.6 10^3/uL (1.8-7.8); NEUTROPHILS % (AUTO) 76 % (42-75); PLATELET COUNT 193 10^3/uL (130-400); WHITE BLOOD COUNT 8.7 10^3/uL (4.3-11.0)
--- NOTE | 2022-03-06 12:38 | Diagnostic Imaging Report ---
Exam: Ultrasound left lower extremity Doppler. Date: March 24, 2022. Indication: 76-year-old male, evaluation for left inguinal pseudoaneurysm. Comparison: CT abdomen and pelvis April 02, 2019. Findings: There is a 2.8 x 2.0 x 2.4 cm pseudoaneurysm associated with the left common femoral artery with internal blood flow. There is a normal waveform in the left common femoral vein. Impression: 1. Pseudoaneurysm measuring 2.8 x 2.0 x 2.4 cm in size associated with the left common femoral artery with internal blood flow. 2. No evidence of an arteriovenous fistula Dictated by: Dictated on workstation # [id number]
[2022-03-06] MEDS ORDERED: MECLIZINE 25 MG (ANTIVERT) TAB PO ONE (12:45)
[2022-03-06] MEDS ORDERED: MECL-149 PO (12:53)
[2022-03-06] MEDS ORDERED: PROM25TA14 PO (12:53)
[2022-03-06] MEDS: MAGNESIUM 1 GM/100 ML IVPB 100 ML IV SCH ×2 (13:08→13:09)
[2022-03-06 13:12] VITALS: BP 137/89
== END 2022-03-06 13:12 | disposition home or self-care (01) ==
LOC: EDUNIT# 09:25 → ER 09:28
DX: R11.2 Nausea with vomiting, unspecified (principal); R42 Dizziness and giddiness; E11.9 Type 2 diabetes mellitus without complications; I72.4 Aneurysm of artery of lower extremity; Z79.4 Long term (current) use of insulin
CPT/HCPCS: 36415; 80048; 85025; 93005; 93926

== ENCOUNTER 2022-03-23 08:27 | Day surgery (SDC) | payer MEDICARE ==
[~2022-03-23] VITALS: Ht 177.8 cm; Wt 86.0 kg
[2022-03-23] VITALS (16 sets, daily range): BP systolic 110–131; BP diastolic 72–81
[~2022-03-23 08:27] MED LIST changes: +MECL-149 PO; +PROM25TA14 PO
[2022-03-23] MEDS ORDERED: NS IV 1000 ML 1,000 ML ONE (08:43)
[2022-03-23] MEDS ORDERED: NS IV 1000 ML 1,000 ML IV SCH (08:45)
[2022-03-23] MEDS ORDERED: MIDAZOLAM 2 MG/2 ML (VERSED) VIAL IVP ONE (08:45)
[2022-03-23] MEDS ORDERED: fentaNYL INJ 100 MCG/2 ML AMP IVP ONE (08:45)
[2022-03-23] MEDS ORDERED: MIDAZOLAM 5 MG/5 ML (VERSED) VIAL ONE (09:05)
[2022-03-23] MEDS ORDERED: fentaNYL INJ 100 MCG/2 ML AMP ONE (09:05)
[2022-03-23 09:18] LABS: BASOPHILS # (AUTO) 0.1 10^3/uL (0.0-0.1); BASOPHILS % (AUTO) 0 % (0-10); EOSINOPHILS # (AUTO) 0.1 10^3/uL (0.0-0.3); EOSINOPHILS % (AUTO) 1 % (0-10); HEMATOCRIT 37 % (40-54); HEMOGLOBIN 11.6 g/dL (13.3-17.7); LYMPHOCYTES # (AUTO) 0.7 10^3/uL (1.0-4.0); LYMPHOCYTES % (AUTO) 6 % (12-44); MEAN CORPUSCULAR HEMOGLOBIN 28 pg (25-34); MEAN CORPUSCULAR HGB CONC 31 g/dL (32-36); MEAN CORPUSCULAR VOLUME 91 fL (80-99); MEAN PLATELET VOLUME 10.9 fL (9.0-12.2); MONOCYTES # (AUTO) 1.1 10^3/uL (0.0-1.0); MONOCYTES % (AUTO) 9 % (0-12); NEUTROPHILS % (AUTO) 84 % (42-75); PLATELET COUNT 284 10^3/uL (130-400); WHITE BLOOD COUNT 11.9 10^3/uL (4.3-11.0)
[2022-03-23 09:41] LABS: ALBUMIN 3.8 GM/DL (3.2-4.5); BILIRUBIN,TOTAL 1.3 MG/DL (0.1-1.0); CALCIUM 8.7 MG/DL (8.5-10.1); CREATININE SERUM 2.03 MG/DL (0.60-1.30); POTASSIUM 4.6 MMOL/L (3.6-5.0); TOTAL PROTEIN 6.5 GM/DL (6.4-8.2)
[2022-03-23 10:31] LABS: EOSINOPHILS % (MANUAL) 1 %; LYMPHOCYTES % (MANUAL) 4 %; MONOCYTES % (MANUAL) 6 %; NEUTROPHILS % (MANUAL) 89 %; POIKILOCYTOSIS SLIGHT
--- NOTE | 2022-03-23 10:46 | Diagnostic Imaging Report ---
INDICATION: Status post heart catheterization. Pain in the right groin. History of pseudoaneurysm COMPARISON: 03/06/2022 TECHNIQUE: Targeted high frequency images were obtained of the left groin. FINDINGS: There is normal flow seen through the left common femoral, proximal superficial femoral, and profunda arteries. Previously identified pseudoaneurysm is again visualized. Measures 3.1 x 2.7 cm in diameter. Since the previous exam, it has developed partial thrombosis. IMPRESSION: 1. Left inguinal pseudoaneurysm persists. It does show partial interval thrombosis, but remains patent. Dictated by: Dictated on workstation # [id number]
--- NOTE | 2022-03-23 17:00 | Diagnostic Imaging Report ---
INDICATION: Pseudoaneurysm. Study is performed after patient underwent 2 hours of compression. Grayscale, color-flow, and Duplex Doppler evaluation left groin was performed. Correlation is made with prior exam from earlier the same morning. There is a hematoma in the left groin measuring 4.0 x 2.3 x 3.1 cm. No internal blood flow is identified on today's study. Findings are consistent with thrombosed pseudoaneurysm. No residual neck is identified. Left common femoral artery and vein are patent. The proximal superficial femoral arteries and veins are patent. IMPRESSION: Thrombosed left groin pseudoaneurysm. Dictated by: Dictated on workstation # [id number]
== END 2022-03-23 14:17 | disposition home or self-care (01) ==
LOC: CATH 08:27
PROVIDERS: ATTEND Internal Medicine Cardiovascular Disease
DX: I72.4 Aneurysm of artery of lower extremity (principal)
CPT/HCPCS: 36415; 80053; 85007; 85027; 87081; 93926

== ENCOUNTER 2022-05-06 09:10 | Outpatient (CLI) | payer MEDICARE ==
[~2022-05-06] VITALS: Ht 177.8 cm; Wt 86.6 kg
[2022-05-06] MEDS ORDERED: CLOP75TA28 PO (13:40)
[2022-05-06] MEDS ORDERED: ATOR20TA66 PO (13:40)
== END 2022-05-06 13:43 | disposition home or self-care (01) ==
LOC: PREOP 09:10
PROVIDERS: ATTEND Surgery
DX: Z01.818 Encounter for other preprocedural examination (principal)

== ENCOUNTER 2022-05-27 12:26 | Day surgery (SDC) | payer MEDICARE ==
[~2022-05-27] VITALS: Ht 177.8 cm; Wt 86.6 kg
--- NOTE | 2022-05-27 12:38 | Progress Note-Pre Operative ---
Pre-Operative Progress Note Date of Available H&P: May 27, 2022 Date H&P Reviewed: May 27, 2022 Time H&P Reviewed: 12:30 History & Physical: No changes noted Pre-Operative Diagnosis: anemia, heme + stool THERESA HERRERA MD May 27, 2022 12:37
[2022-05-27] MEDS ORDERED: LACTATED RINGERS 1,000 ML IV STA (12:39)
[2022-05-27] MEDS ORDERED: OMEP40CA6 PO (12:41)
--- NOTE | 2022-05-27 12:42 | Discharge Inst-Surgical ---
D/C Lap Instructions-KIDO New, Converted, or Re-Newed RX: RX on Chart Follow Up Activity as tolerated High Fiber Diet 25g or more per day Avoid Alcohol, Caffeine, Spicy [place] and Acid foods. Drink 64 fluid oz or more of fluids per day. Symptoms to Report: Fever over 101 degree F, Nausea/Vomiting If any problems/questions: Contact your physician or go to Emergency Room THERESA HERRERA MD May 27, 2022 12:42
[2022-05-27] MEDS ORDERED: ONDANSETRON 4 MG/2 ML (SDV) Z0FRAN IVP PRN (12:45)
[2022-05-27] MEDS ORDERED: LIDOCAINE JELLY 2% 6 ML SYRINGE MM PRN (12:45)
[2022-05-27] MEDS ORDERED: HURRICAINE EXT TUBE (BENZOCAINE) XX PRN (12:45)
[2022-05-27] MEDS ORDERED: ONDANSETRON 4 MG (ZOFRAN) ORAL DISSOLVE TAB PO PRN (12:45)
[2022-05-27 12:56] VITALS: BP 146/91
[2022-05-27] MEDS ORDERED: PROPOFOL INJECTION 50 ML IV ONE (13:26)
[2022-05-27] MEDS ORDERED: LIDOCAINE JELLY 2% 6 ML SYRINGE ONE (13:32)
[2022-05-27 14:00] VITALS: BP 91/50
[2022-05-27 14:05] VITALS: BP 86/52
[2022-05-27 14:10] VITALS: BP 86/52
--- NOTE | 2022-05-27 14:12 | Progress Note-Post Operative ---
Post-Operative Progess Note Surgeon (s)/Science Interpreter (s) Surgeon THERESA HERRERA MD Science Interpreter: none Pre-Operative Diagnosis anemia, heme + stool Post-Operative Diagnosis reflux esophagitis(grade B), small-mod HH(2.5cm), mod gastritis. mild chronic stage 2 ext and int hemorrhoids. Procedure & Operative Findings Date of Procedure 05/27/22 Procedure Performed/Findings EGD with bx. colonoscopy. Anesthesia Type mac Estimated Blood Loss Estimated blood loss (mL): minimal Specimens/Packing Specimens Removed ge jxn, antrum THERESA HERRERA MD May 27, 2022 14:12
--- NOTE | 2022-05-27 14:43 | Anesthesia-General Post-Op ---
General Patient Condition Mental Status/LOC: Same as Preop Cardiovascular: Satisfactory Nausea/Vomiting: Absent Respiratory: Satisfactory Pain: Controlled Complications: Absent Post Op Complications Complications None Follow Up Care/Instructions Patient Instructions None needed. Anesthesia/Patient Condition Patient Condition Patient is doing well, no complaints, stable vital signs, no apparent adverse anesthesia problems. No complications reported per nursing. ANDREA KENT CRNA May 27, 2022 14:43
[2022-05-27 14:46] VITALS: BP 86/52
--- NOTE | 2022-05-27 22:24 | OPERATIVE REPORT ---
DATE OF SERVICE: 05/27/2022 ATTENDING PRIMARY CARE PHYSICIAN: Davis Caldera DO PREOPERATIVE DIAGNOSIS: Anemia with heme-positive stools. POSTOPERATIVE DIAGNOSES: Reflux esophagitis Brooke grade B, small to moderate size hiatal hernia 2.5 cm in size, moderate gastritis, chronic stage II external and internal hemorrhoids. Normal ileocolonic anastomosis. No active bleeding identified. PROCEDURE: EGD with biopsy, colonoscopy. SURGEON: Theresa Morrison MD ANESTHESIA: Monitored anesthesia care. ESTIMATED BLOOD LOSS: Minimal. FINDINGS: Reflux esophagitis Brooke grade B, small to moderate size hiatal hernia 2.5 cm in size, moderate gastritis, chronic stage II external and internal hemorrhoids. Normal ileocolonic anastomosis. No active bleeding identified. DISPOSITION: The patient tolerated the procedure well. INDICATIONS: The patient is a 77-year-old male known to us. He has extensive past medical history including non-Hodgkin's lymphoma, diabetes, chronic kidney disease and heart failure. He also developed abdominal pain and was found to have gallstones. He underwent a laparoscopic cholecystectomy on 10/05/2019. He underwent a colonoscopy on 06/21/2019 and no abnormalities detected. In 02/2020, underwent an EGD and was found to have reflux esophagitis Brooke grade B as well as a hiatal hernia approximately 2.5 cm in size as well as moderate gastritis. He states that his hemoglobin normally runs in the 14 range; however, he was found to be at 11.2. He underwent a fecal occult blood test, which was positive. He does not report any episodes of red blood per rectum as well as no dark tarry stools. He also has had some issues with reflux; however, nothing worse than normal. DESCRIPTION OF PROCEDURE: The patient was brought to the endoscopy suite and laid in the left lateral decubitus position. After adequate IV pain and sedative medications and monitored anesthesia care, the mouthpiece was applied. The endoscope was placed in the mouth, visualizing the pharynx and hypopharyngeal region. Vocal cords, epiglottis and vallecula identified and appeared to be normal. The endoscope was then gently intubated through the esophageal opening and esophagus insufflated. The endoscope was then advanced through the first, second and third portions of the esophagus at the level of the GE junction. Reflux esophagitis Brooke grade B identified. No ulcers or strictures identified and a biopsy was taken with forceps with visualization of good hemostasis. The endoscope was then advanced into the stomach and endoscope retroflexed visualizing a small to moderate size hiatal hernia approximately 2.5 cm in size. There was moderate gastritis. No formal ulcerations, polyps or any neoplasms as well as no active bleeding sources. A biopsy was taken of the antrum to rule out H. pylori with visualization of good hemostasis. The endoscope was then advanced to the pylorus and the first and second portion of the duodenum, which appeared normal with no ulcers or any bleeding sources. The endoscope was then slowly withdrawn while taking a second look and suctioning of residual air with no additional findings. A digital rectal examination was performed which revealed mild chronic stage II external and internal hemorrhoids. The endoscope was then advanced through the valves of [place] of the rectum with no polyps or any neoplasms identified. We then proceeded through the sigmoid and descending colon to what appeared to be an ileocolonic anastomosis, which appeared normal. There were no polyps or any active bleeding sources identified. The endoscope was then slowly withdrawn while taking a second look and suctioning of residual air with no additional findings. The patient tolerated the procedure well. We will recommend medical management with the necessary lifestyle and dietary accommodation, which would include a small and more frequent meals, avoidance of eating at night as well as head elevation while lying supine. Alcohol cessation would also be beneficial. We will also recommend a high-fiber diet with addition of a fiber supplement, which are equal or exceed 30 grams daily as well as significant amounts of water to promote soft consistency stools on a daily basis. We feel that the anemia was likely due to a benign cause that will likely correct on its own. Job ID: [id number] DocumentID: [id number] Dictated Date: 05/27/2022 14:07:27 Research Food Technologist Date: 05/27/2022 22:22:00 Dictated By: THERESA MORRISON MD
== END 2022-05-27 15:00 | disposition home or self-care (01) ==
LOC: ENDO 12:26
PROVIDERS: ATTEND Surgery
DX: D64.9 Anemia, unspecified (principal); K21.00 Gastro-esophageal reflux disease with esophagitis, without bleeding; K44.9 Diaphragmatic hernia without obstruction or gangrene; K29.70 Gastritis, unspecified, without bleeding; K64.1 Second degree hemorrhoids; K64.4 Residual hemorrhoidal skin tags; R19.5 Other fecal abnormalities; Z87.891 Personal history of nicotine dependence

== ENCOUNTER 2022-06-29 11:11 | Outpatient (RCR) | payer MEDICARE ==
[2022-06-18 13:24] LABS: BASOPHILS # (AUTO) 0.1 10^3/uL (0.0-0.1); BASOPHILS % (AUTO) 1 % (0-10); EOSINOPHILS % (AUTO) 0 % (0-10); HEMATOCRIT 35 % (40-54); HEMOGLOBIN 10.7 g/dL (13.3-17.7); LYMPHOCYTES # (AUTO) 0.7 10^3/uL (1.0-4.0); LYMPHOCYTES % (AUTO) 9 % (12-44); MEAN CORPUSCULAR HEMOGLOBIN 26 pg (25-34); MEAN CORPUSCULAR HGB CONC 31 g/dL (32-36); MEAN CORPUSCULAR VOLUME 83 fL (80-99); MEAN PLATELET VOLUME 10.4 fL (9.0-12.2); MONOCYTES # (AUTO) 0.6 10^3/uL (0.0-1.0); MONOCYTES % (AUTO) 8 % (0-12); NEUTROPHILS # (AUTO) 6.2 10^3/uL (1.8-7.8); NEUTROPHILS % (AUTO) 81 % (42-75); PLATELET COUNT 266 10^3/uL (130-400); WHITE BLOOD COUNT 7.7 10^3/uL (4.3-11.0)
[2022-06-18 13:47] LABS: ALBUMIN 3.2 GM/DL (3.2-4.5); BILIRUBIN,TOTAL 0.4 MG/DL (0.1-1.0); CALCIUM 8.8 MG/DL (8.5-10.1); CREATININE SERUM 1.54 MG/DL (0.60-1.30); POTASSIUM 4.8 MMOL/L (3.6-5.0); TOTAL PROTEIN 5.9 GM/DL (6.4-8.2)
[~2022-06-29 11:11] MED LIST changes: +OMEP40CA6 PO
== END 2022-07-03 | disposition home or self-care (01) ==
LOC: ONC 11:11
PROVIDERS: ATTEND Internal Medicine Hematology & Oncology
DX: C85.10 Unspecified B-cell lymphoma, unspecified site (principal); E11.9 Type 2 diabetes mellitus without complications; I25.10 Atherosclerotic heart disease of native coronary artery without angina pectoris; I11.0 Hypertensive heart disease with heart failure; I50.9 Heart failure, unspecified; I73.9 Peripheral vascular disease, unspecified; E78.2 Mixed hyperlipidemia
CPT/HCPCS: 36415; 80053; 83615; 85025

== ENCOUNTER 2022-07-16 11:00 | Inpatient (IN) | payer MEDICARE ==
[~2022-07-16] VITALS: Ht 177 cm; Wt 82.4 kg
[2022-07-16] MEDS ORDERED: morphine INJ 10 MG/ML 1ML (SYR OR VIAL) IVP STA (11:33)
--- NOTE | 2022-07-16 11:35 | ED Fall/Injury ---
General Chief Complaint: Trauma-Non Activation Stated Complaint: FALL Nursing Triage Note: PT ARRIVED PER EMS, PT HAS FALLEN APPROX 2 DAYS AGO LANDING ON CONCRETE. PT CO OF NECK, PIAN IN R HIP, RIBS AND BACK. PT WAS GIVEN 100MCG OF FENTYL IV BY EMS. PT HAS ABRASION ON R ELBOW, HAND AND ANKLE. PT SCREAMS OUT IN PAIN AT TIMES. PT HAS BEEN IN RECLINER FOR 2 DAYS. PT STATES DID HIT R SIDE OF HEAD. PT DENIES LOC AT TIME OF FALL. PT STATES HAS POSSIBLE HAD FEW DRINKS BEFORE FALLING. PT STATES FELL BACKWARS, WHEN HAS GOTTEN TOE CAUGHT ON CONCRETE. Source: patient, EMS Exam Limitations: no limitations History of Present Illness Date Seen by Provider: Jul 16, 2022 Time Seen by Provider: 11:29 Initial Comments Patient is a 77-year-old male with a history of of peripheral artery disease, hypertension, hyperlipidemia, diabetes, A-fib, coronary artery disease who presents to ED secondary to a fall 2 days ago. Patient fell 2 days ago landing on concrete. States he was going up the steps on the back patio when his foot got caught causing him to fall backwards landing on the right side. He states he did have a few alcohol beverages states he drinks bourbon typically on a regular basis. States he did hit the right side of his head, right shoulder, chest, abdomen, right hip and right knee. Has been able to bear some weight but has been sitting in a chair at home being taken care of by his . Was brought to the ED by EMS. Was given 100 mcg of fentanyl by EMS. Patient is on Xarelto. Patient denies losing any consciousness and recall the fall. Patient was placed on 2 L oxygen secondary to hypoxia. Does not wear oxygen at home. Pain with deep inspiration with chest pain. Location Injury Occurred: HOME Allergies and Home Medications Allergies Coded Allergies: hydrocodone (Verified Allergy, Intermediate, RASH, 07/16/22) oxycodone (Verified Allergy, Intermediate, RASH, 07/16/22) formaldehyde (Verified Allergy, Unknown, 07/16/22) Patient Home Medication List Home Medication List Reviewed: Yes Amiodarone HCl (Amiodarone HCl) 200 Mg Tablet, 200 MG PO DAILY, (Reported) Entered as Reported by: GALEN MICHAELS on 03/04/22 0231 Last Action: Continued Atorvastatin Calcium (Atorvastatin Calcium) 20 Mg Tablet, 20 MG PO HS, (Reported) Entered as Reported by: KELSEY BEARDEN on 05/06/22 1340 Last Action: Continued Clopidogrel Bisulfate (Clopidogrel) 75 Mg Tablet, 75 MG PO DAILY, (Reported) Entered as Reported by: KELSEY BEARDEN on 05/06/22 1340 Last Action: Continued Ergocalciferol (Vitamin D2) (Vitamin D2) 1,250 Mcg (07089 Unit) Capsule, 1,250 MCG PO WEDNESDAY, (Reported) Entered as Reported by: GALEN MICHAELS on 03/04/22756 Last Action: Held Hydrochlorothiazide (Hydrochlorothiazide) 25 Mg Tablet, 25 MG PO DAILY, (Reported) Entered as Reported by: ANGIE KATZ on 07/14/171234 Last Action: Continued Insulin Aspart (Niacinamide) (Fiasp 100 Unit/ml Vial) 100 Unit/Ml Vial, UNIT SQ AC, (Reported) Entered as Reported by: GERARDO HUIZAR on 08/02/19 0805 Last Action: Reviewed Metoprolol Succinate (Metoprolol Succinate) 25 Mg Tab.er.24h, 25 MG PO DAILY, (Reported) Entered as Reported by: ANGIE KATZ on 07/14/17 123 Last Action: Continued Prednisone (Prednisone) 5 Mg Tablet, 5 MG PO DAILY, (Reported) Entered as Reported by: ANGIE KATZ on 04/03/19 1120 Last Action: Continued Rivaroxaban (Xarelto) 20 Mg Tablet, 20 MG PO 1800, (Reported) Entered as Reported by: GALEN MICHAELS on 03/04/22756 Last Action: Continued Sacubitril/Valsartan (Entresto 24 mg-26 mg Tablet) 24 Mg-26 Mg Tablet, 1 TAB PO BID, (Reported) Entered as Reported by: GALEN MICHAELS on 03/04/22756 Last Action: Continued Discontinued Medications Acetaminophen (Tylenol) 325 Mg Tablet, 650 MG PO Q6H PRN for PAIN-MILD (1-4), (Reported) Discontinued Reason: No Longer Taking Entered as Reported by: GALEN MICHAELS on 03/04/22756 Last Action: Discontinued Gabapentin (Gabapentin) 100 Mg Capsule, 100 MG PO HS, (Reported) Discontinued Reason: No Longer Taking Entered as Reported by: GALEN MICHAELS on 03/04/22756 Last Action: Discontinued Omeprazole (Omeprazole) 40 Mg Capsule.dr, 40 MG PO DAILY Discontinued Reason: No Longer Taking Prescribed by: THERESA HERRERA on 05/27/22 1241 Last Action: Discontinued Polyethylene Glycol 400 (Visine Dry Eye Relief) 1 % Drops, 1 DROP OP HS, (Reported) Discontinued Reason: No Longer Taking Entered as Reported by: GALEN MICHAELS on 03/04/22756 Last Action: Discontinued Review of Systems Review of Systems Constitutional: No chills, No diaphoresis, No malaise; weakness Eyes: Denies Drainage, Denies Decreased Acuity, Denies Photophobia, Denies Previous Injury Ears, Nose, Mouth, Throat: denies ear pain, denies ear discharge, denies nose discharge, denies mouth pain, denies throat pain, denies throat swelling Respiratory: No cough Cardiovascular: No chest pain, No palpitations Gastrointestinal: No abdominal pain, No diarrhea, No nausea, No vomiting Genitourinary: No decreased output, No discharge Musculoskeletal: back pain, joint pain, joint swelling, muscle pain, muscle stiffness Skin: change in color All Other Systems Reviewed Negative Unless Noted: Yes Past [id number] Hx Patient Social History Tobacco Use?: No Substance use?: No Alcohol Use?: No Pt feels they are or have been: No Immunizations Up To Date Tetanus Booster (TDap): Unknown PED Vaccines UTD: Yes Influenza Vaccine Up-to-Date: Yes; Up-to-Date First/Initial COVID19 Vaccinat: yes Second COVID19 Vaccination Mazin: yes Third COVID19 Vaccination Date: yes Seasonal Allergies Seasonal Allergies: No Past Medical History Surgery/Hospitalization HX: DIABETES, HX A-FIB, HX CANCER. Surgeries: Yes (COLON RESECTION/COLOSTOMY/REVERSAL; HERNIA REPAIR;PORT R CHEST/removed) Abdominal, Bowel Surgery, Cardiac, Gallbladder, Orthopedic, Penile Implant, Renal, Transurethral Resection, Vascular Surgery Respiratory: No Currently Using BIPAP: No Cardiac: Yes Heart Murmur, Irregular Heartbeat Neurological: Yes Neuropathy Reproductive Disorders: No Sexually Transmitted Disease: No HIV/AIDS: No Genitourinary: Yes (TURP, CYSTOSCOPIES; URETERAL OBSTRUCTION DUE TO LYMPHOMA) Benign Prostatic Hyperpl, Prostate Problems, Bladder Infection Gastrointestinal: No (COLON RESECTION/COLOSTOMY/REVERSAL ) Abdominal Hernia, Gastroesophageal Reflux, Obstructive Bowel, Chronic Constipation Musculoskeletal: Yes Arthritis, Rheumatoid Arthritis Endocrine: Yes (INSULIN PUMP) Diabetes, Insulin dep HEENT: No Cancer: No (NON HODGKIN'S LYMPHOMA DX 2014--CURRENTLY IN REMISSION) Lymphoma, Colon Did You Recieve Any Treatments: Yes What Type of Treatment Did You: Chemotherapy, Other Psychosocial: No Integumentary: Yes (shingles) Blood Disorders: Yes (anemia) Adverse Reaction/Blood Tranf: No Family Medical History Congestive heart failure 19 MOTHER Family history: Diabetes mellitus 19 MOTHER No Family History of: Abdominal aortic aneurysm Alcoholism Cancer Dementia Family history: Allergy Family history: Alzheimer's disease Family history: Arthritis Family history: Asthma Family history: Breast disease Family history: Cardiovascular disease Family history: Gastrointestinal disease Family history: Thyroid disorder Myocardial infarction Psychotic disorder Seizure disorder Stroke 08/02/19--PERIPHERAL ANGIOGRAM--SMALL VESSEL DISEASE, NO INTERVENTION. 06/21/19--NORMAL COLONOSCOPY Physical Exam Vital Signs Vital Signs - First Documented 07/16/22 11:03 Pulse 80 Resp 16 B/P (MAP) 149/84 (105) Pulse Ox 100 Capillary Refill : Less Than 3 Seconds Height, Weight, BMI Height: 5'10.00" Weight: 187lbs. 2.0oz. 84.053709gy; 27.00 BMI Method:Estimated General Appearance: WD/WN, no apparent distress HEENT: PERRL/EOMI, normal ENT inspection, TMs normal, pharynx normal Neck: non-tender, full range of motion, supple, normal inspection Cardiovascular: regular rate, rhythm, no edema, no gallop, no JVD Respiratory: lungs clear, normal breath sounds, no respiratory distress, no accessory muscle use, other (hs abdominal tenderness diffuse chest wall tenderness worse below left breast) Gastrointestinal: normal bowel sounds, soft, no organomegaly, tenderness Back: vertebral tenderness (Thoracic and lumbar midline tenderness. Bilateral thoracic and lumbar paraspinal muscle tenderness.) Extremities: other (Tenderness to palpate right lateral hip. No shortening or rotation. Right medial knee tenderness with pain with range of motion. Diminished pulses bilateral lower extremities. Cap refill less than 2.) Deni Coma Score Best Eye Response: (4) Open Spontaneously Best Verbal Response: (5) Oriented Best Motor Response: (6) Obeys Commands Deni Total: 15 Procedures/Interventions Suture Size: 4-0, 5-0 Progress/Results/Core Measures Results/Orders Lab Results Laboratory Tests Test 07/16/22 11:20 07/16/22 11:29 Range/Units White Blood Count 11.7 H 4.3-11.0 10^3/uL Red Blood Count 3.90 L 4.30-5.52 10^6/uL Hemoglobin 10.1 L 13.3-17.7 g/dL Hematocrit 33 L 40-54 % Mean Corpuscular Volume 84 80-99 fL Mean Corpuscular Hemoglobin 26 25-34 pg Mean Corpuscular Hemoglobin Concent 31 L 32-36 g/dL Red Cell Distribution Width 18.6 H 10.0-14.5 % Platelet Count 233 130-400 10^3/uL Mean Platelet Volume 10.6 9.0-12.2 fL Immature Granulocyte % (Auto) 1 % Neutrophils (%) (Auto) 83 H 42-75 % Lymphocytes (%) (Auto) 4 L 12-44 % Monocytes (%) (Auto) 11 0-12 % Eosinophils (%) (Auto) 1 0-10 % Basophils (%) (Auto) 1 0-10 % Neutrophils # (Auto) 9.7 H 1.8-7.8 10^3/uL Lymphocytes # (Auto) 0.5 L 1.0-4.0 10^3/uL Monocytes # (Auto) 1.2 H 0.0-1.0 10^3/uL Eosinophils # (Auto) 0.1 0.0-0.3 10^3/uL Basophils # (Auto) 0.1 0.0-0.1 10^3/uL Immature Granulocyte # (Auto) 0.1 0.0-0.1 10^3/uL Neutrophils % (Manual) 85 % Lymphocytes % (Manual) 4 % Monocytes % (Manual) 8 % Eosinophils % (Manual) 2 % Basophils % (Manual) 1 % Polychromasia SLIGHT Anisocytosis MODERATE Sodium Level 138 135-145 MMOL/L Potassium Level 4.7 3.6-5.0 MMOL/L Chloride Level 105 98-107 MMOL/L Carbon Dioxide Level 21 21-32 MMOL/L Anion Gap 12 5-14 MMOL/L Blood Urea Nitrogen 32 H 7-18 MG/DL Creatinine 1.85 H 0.60-1.30 MG/DL Estimat Glomerular Filtration Rate 37 BUN/Creatinine Ratio 17 Glucose Level 214 H 70-105 MG/DL Calcium Level 8.8 8.5-10.1 MG/DL Corrected Calcium 9.2 8.5-10.1 MG/DL Total Bilirubin 0.6 0.1-1.0 MG/DL Aspartate Amino Transf (AST/SGOT) 28 5-34 U/L Alanine Aminotransferase (ALT/SGPT) 35 0-55 U/L Alkaline Phosphatase 169 H 40-136 U/L Troponin I < 0.028 <0.028 NG/ML B-Type Natriuretic Peptide 602.6 H <100.0 PG/ML Total Protein 6.2 L 6.4-8.2 GM/DL Albumin 3.5 3.2-4.5 GM/DL Lipase 12 8-78 U/L Serum Alcohol < 10 <10 MG/DL Glucometer 199 H 70-110 MG/DL My Orders Orders - ELIN CROUCH Ct Head/Cervical Spine Wo (07/16/22 11:26) Ct Chest/Abdomen/Pelvis W (07/16/22 11:26) Shoulder, Right, 3 Views (07/16/22 11:27) Elbow, Right, 3 Views (07/16/22 11:27) Hip, Right, 2 Views (07/16/22 11:27) Knee, Right, 3 Views (07/16/22 11:27) Cbc With Automated Diff (07/16/22 11:27) Comprehensive Metabolic Panel (07/16/22 11:27) Lipase (07/16/22 11:27) Ekg Tracing (07/16/22 11:27) Alcohol (07/16/22 11:27) Troponin I Faulkner (07/16/22 11:27) Bnp Moshe (07/16/22 11:27) Morphine Injection (Morphine Injection (07/16/22 11:33) Ct Thoracic/Lumbar Spine Wo (07/16/22 11:37) Manual Differential (07/16/22 11:20) Ns Iv 500 Ml (Sodium Chloride 0.9%) (07/16/22 12:31) Ed Admission (Communication) (07/16/22 14:19) Medications Given in ED Current Medications Medications Dose Ordered Sig/Lesly Route Start Time Stop Time Status Last Admin Dose Admin Iohexol 100 ml ONCE ONCE IV 07/16/22 11:45 4/13/23 11:46 DC 07/16/22 11:59 80 ML Sodium Chloride 10 ml NEEDED PRN IV 07/16/22 11:45 07/16/22 11:59 10 ML Sodium Chloride 100 ml ONCE ONCE IV 07/16/22 11:45 07/16/22 11:46 DC 07/16/22 11:59 80 ML Vital Signs/I&O 07/16/22 11:03 Pulse 80 Resp 16 B/P (MAP) 149/84 (105) Pulse Ox 100 Blood Pressure Mean: 105 Comment Sinus rhythm, 83 bpm, QRS duration 101 MS, QTc 482 MS Departure Communication (Admissions) Time/Spoke to Admitting Phy: 13:[address] Marley hospitalist who accepts patient for further evaluation Communication (PCP) Reviewed previous ER visits, H&P and lab testing . patient with a mechanical fall 2 days ago. Patient Was going up the stairs of his patio at home fell backwards hitting the right side two days ago. Denies loss of consciousness. Patient is on Xarelto. Patient Was able to ambulate but according to patient has been sitting in a chair for most of the day for the past two days. Patient was brought to the ED by EMS. Patient Was given 100 mcg of fentanyl without much improvement. Patient is a poor historian. Difficulty obtaining history. Patient has diffuse body pain. Appears to be worse to his right upper chest and right hip. Abrasions to the right forearm. Contusion to right lateral hip. Patient was complaining of cervical neck pain. Patient was placed in c-collar. No evidence of trauma to the head. Right lateral rib tenderness without crepitus or step-off. Lung sounds noted throughout. CBC, CMP, cardiac work-up EKG was ordered secondary to patient's complaint. The fall appears more mechanical. Does drink alcohol whiskey intermittently according to . Denies drinking alcohol that day. He is currently on Xarelto. History of chronic kidney disease, diabetes, coronary artery disease, CHF. History of peripheral artery disease. EKG without evidence of ST elevation or depression, afib. No arrhythmia. Slight elevated white blood count 11, hemoglobin of 10. Chemistry showed creatinine 1.85, GFR 37, blood sugar 219, BNP of [address]. normal troponin[address] CT scan of the head and cervical neck was negative for acute fracture, hemorrhaging. C-collar cleared and removed 12:56. CT scan of the chest and abdomen and pelvis shows 4th-6th right lateral posterior rib frac tures. No evidence of pulmonary contusion, cardiac contusion, pneumothorax. No evidence of visceral abdominal injury. There was right-sided pelvic fracture involving the right superior and inferior pubic rami and right ischium with extension towards the acetabulum. X-ray of the right shoulder and elbow were negative for acute fractures. Patient did have some skin abrasions of the right. Wounds were dressed. no evidence of infections Up to date on his tetanus. Complain of right knee pain as well which was negative for acute fracture. Patient was discussed with orthopedic Dr. Vega who is on-call. Recommend conservative treatment at this time and nonoperative for the hip fx. PT was recommended. Patient having difficulty getting up here. Lives at home with his . Due to patient's current complaint, mobility, continued pain patient will be admitted for pain control, PT OT and further evaluation. Patient was discussed with hospitalist Dr. Marley who accepts patient. Impression Primary Impression: Rib fracture Additional Impression: Pelvic fracture Disposition: HOME, SELF-CARE Condition: Stable Admissions Decision to Admit Reason: Admit from ER (General) Decision to Admit/Date: Jul 16, 2022 Time/Decision to Admit Time: 13:24 Departure-Patient Inst. Referrals: KARLA WESTBROOK DO (PCP/Family) Primary Care Physician ELIN CROUCH Jul 16, 2022 11:35
[2022-07-16 11:36] LABS: BASOPHILS # (AUTO) 0.1 10^3/uL (0.0-0.1); BASOPHILS % (AUTO) 1 % (0-10); EOSINOPHILS # (AUTO) 0.1 10^3/uL (0.0-0.3); EOSINOPHILS % (AUTO) 1 % (0-10); HEMATOCRIT 33 % (40-54); HEMOGLOBIN 10.1 g/dL (13.3-17.7); LYMPHOCYTES # (AUTO) 0.5 10^3/uL (1.0-4.0); LYMPHOCYTES % (AUTO) 4 % (12-44); MEAN CORPUSCULAR HEMOGLOBIN 26 pg (25-34); MEAN CORPUSCULAR HGB CONC 31 g/dL (32-36); MEAN CORPUSCULAR VOLUME 84 fL (80-99); MEAN PLATELET VOLUME 10.6 fL (9.0-12.2); MONOCYTES # (AUTO) 1.2 10^3/uL (0.0-1.0); MONOCYTES % (AUTO) 11 % (0-12); NEUTROPHILS # (AUTO) 9.7 10^3/uL (1.8-7.8); NEUTROPHILS % (AUTO) 83 % (42-75); PLATELET COUNT 233 10^3/uL (130-400); WHITE BLOOD COUNT 11.7 10^3/uL (4.3-11.0)
[2022-07-16] MEDS ORDERED: HOLD METFORMIN - RECEIVED CONTRAST 20 ML VIAL IV SCH (11:45)
[2022-07-16] MEDS ORDERED: IOHEXOL 350 MG/ML 100 ML (OMNIPAQUE 350) VIAL IV ONE (11:45)
[2022-07-16] MEDS ORDERED: NS 100 ML (IVPB) BAG IV ONE (11:45)
[2022-07-16 11:48] LABS: ALBUMIN 3.5 GM/DL (3.2-4.5); CHLORIDE 105 MMOL/L (98-107); POTASSIUM 4.7 MMOL/L (3.6-5.0); SODIUM 138 MMOL/L (135-145)
[2022-07-16 11:49] LABS: CALCIUM 8.8 MG/DL (8.5-10.1)
[2022-07-16 11:50] LABS: GLUCOSE 214 MG/DL (70-105)
[2022-07-16 11:51] LABS: TOTAL PROTEIN 6.2 GM/DL (6.4-8.2)
[2022-07-16 11:52] LABS: BILIRUBIN,TOTAL 0.6 MG/DL (0.1-1.0); CARBON DIOXIDE 21 MMOL/L (21-32)
[2022-07-16 11:54] LABS: ALKALINE PHOSPHATASE 169 U/L (40-136); CREATININE SERUM 1.85 MG/DL (0.60-1.30); GFR ESTIMATED 37
[2022-07-16 11:55] LABS: BUN/CREATININE RATIO 17
[2022-07-16 11:57] LABS: ALANINE AMINOTRANSFERASE 35 U/L (0-55); LIPASE 12 U/L (8-78)
[2022-07-16] MEDS: CATHETER FLUSH 10 ML SYR IV PRN (11:59)
[2022-07-16 12:19] LABS: ANISOCYTOSIS MODERATE; BASOPHILS % (MANUAL) 1 %; EOSINOPHILS % (MANUAL) 2 %; LYMPHOCYTES % (MANUAL) 4 %; MONOCYTES % (MANUAL) 8 %; NEUTROPHILS % (MANUAL) 85 %; POLYCHROMASIA SLIGHT
[2022-07-16] MEDS ORDERED: NS IV 500 ML 500 ML IV STA (12:31)
--- NOTE | 2022-07-16 12:34 | Diagnostic Imaging Report ---
PROCEDURE: CT head and CT cervical spine without contrast. TECHNIQUE: Multiple contiguous axial images were obtained through the brain and cervical spine without the use of intravenous contrast. Sagittal and coronal reformations through the cervical spine were then performed. Auto Exposure Controls were utilized during the CT exam to meet ALARA standards for radiation dose reduction. INDICATION: Fall with head and neck pain. COMPARISON: Comparison is made with prior CT from 03/01/2018. FINDINGS: CT HEAD: Ventricles and sulci are appropriate for the patient's age. No sulcal effacement or midline shift is identified. No acute intra-axial or extra-axial hemorrhage is detected. Cisterns are patent. Visualized paranasal sinuses are clear. IMPRESSION: No acute intracranial process is detected. CT CERVICAL SPINE: There is minimal retrolisthesis of C3 on C4 and C4 on C5 with anterolisthesis of C5 on C6. This is similar to prior CT. There is multilevel degenerative disc disease with variable disc space narrowing. There is multilevel facet arthropathy. No fractures are seen. The prevertebral tissues are normal. The odontoid is intact. IMPRESSION: Multilevel cervical spondylosis and listhesis. No acute bony abnormality is detected. Dictated by: Dictated on workstation # [id number]
--- NOTE | 2022-07-16 12:35 | Diagnostic Imaging Report ---
PROCEDURE: CT thoracic and lumbar spine without contrast. TECHNIQUE: Multiple contiguous axial images were obtained through the thoracic and lumbar spine without the use of intravenous contrast. Sagittal and coronal reformations were then performed. All CT scans use one or more of the following dose optimizing techniques: Automated exposure control, MA and/or KvP adjustment based on a patient size and exam type, or iterative reconstruction. INDICATION: Fall, with back pain. CT THORACIC SPINE: FINDINGS: Curvature and alignment of the thoracic spine is normal. Vertebral body heights are fairly well maintained, although there is some very minimal superior endplate concavity involving upper thoracic vertebrae, approximately T4, T5, and T6 vertebral bodies. No acute fracture lines are identified, and findings could potentially be chronic. There is generalized thoracic spondylosis with variable disc space narrowing and marginal spurring. Bony canal is patent. IMPRESSION: Thoracic spondylosis. There is some minimal superior endplate compression involving approximately T4 through T6. Age of this is indeterminate, but this could potentially be chronic. If there is concern for acute compression fracture, MRI may be useful for further evaluation. CT LUMBAR SPINE: FINDINGS: Curvature and alignment of the lumbar spine is normal. Vertebral body heights are well maintained without evidence of acute compression fracture. There is some generalized thoracic spondylosis, greatest at the L5-S1 levels where there is significant disc space narrowing. There is also vacuum disc at multiple levels. IMPRESSION: Lumbar spondylosis. No acute bony abnormality is detected. Dictated by: Dictated on workstation # [id number]
--- NOTE | 2022-07-16 12:52 | Diagnostic Imaging Report ---
CLINICAL INDICATION: Patient fell on steps 2 days ago with complaints of right side pain, right shoulder pain, hip pain, and arm pain. EXAMS: 1: X-ray of the right elbow, 3 views. 2: X-ray of the right shoulder, 3 views. COMPARISON: None. FINDINGS AND IMPRESSION: 1: X-ray of the right shoulder shows concern for cortical disruption/possible fractures of the posterolateral aspect of the right lower ribs of unknown age. 2: Otherwise, x-rays of the right shoulder and right elbow show no acute fracture or dislocation. The humerus shows no fracture. There is no elbow effusion seen. 3: There are degenerative spurs involving the right glenohumeral joint region and right acromioclavicular region. 4: There are no significant degenerative changes of the right elbow. Dictated by: Dictated on workstation # [id number]
--- NOTE | 2022-07-16 12:55 | Diagnostic Imaging Report ---
PROCEDURE: CT chest, abdomen, and pelvis with contrast. TECHNIQUE: Multiple contiguous axial images were obtained through the chest, abdomen, and pelvis after the administration of intravenous contrast. Auto Exposure Controls were utilized during the CT exam to meet ALARA standards for radiation dose reduction. INDICATION: Fall with right-sided pain. Correlation is made with prior CT from 09/28/2019. CT CHEST: The heart is enlarged. No definite mediastinal hematoma or evidence of great vessel injury is seen. There is no pericardial or pleural fluid identified. There appears to be dependent atelectasis in both lung bases. No parenchymal contusion or pneumothorax is identified. There are acute appearing fractures involving right-sided 4th, 5th and 6th lateral ribs. There are old fractures that appears healed involving the right 7th, 8th and 9th posterior lateral ribs. There is an old ununited fracture of the right posterior lateral 10th and 11th ribs. Left-sided ribs are unremarkable. IMPRESSION: Right 4th through 6th rib fractures. No other significant abnormality is detected. CT abdomen and pelvis: No focal liver or splenic laceration is identified. Gallbladder surgically absent. The pancreas, adrenal glands and kidneys are unremarkable. Aorta and iliac vessels are heavily calcified but nonaneurysmal. Bowel loops are normal caliber. No free fluid or evidence of hemoperitoneum is identified. Penile prosthesis with a right pelvic reservoir is noted. Bladder is unremarkable. There are right-sided pelvic fractures present. There is a fracture involving the right superior pubic ramus with involvement of the anterior column of the right acetabulum. There is also a fracture through the right ischium with fracture line extending near the posterior column of the right acetabulum. There is also fracture of the right inferior pubic ramus. Symphysis is not widened. Femoral acetabular alignment is normal bilaterally. Both femora appear to be intact. There appears to be a probable hematoma in the subcutaneous tissues just lateral to the right hip. IMPRESSION: 1. No evidence of abdominal or pelvic visceral injury. There are right-sided pelvic fractures involving the right superior and inferior pubic rami and right ischium with extension towards the posterior column of the acetabulum. The right superior pubic ramus is at the junction of the ramus and anterior column. Soft tissue hematoma lateral to the right hip is noted. Dictated by: Dictated on workstation # [id number]
--- NOTE | 2022-07-16 13:01 | Diagnostic Imaging Report ---
CLINICAL INDICATION: Patient fell on steps 2 days ago with complaints of right side, right shoulder, right hip, and right arm pain. EXAMS: 1: X-ray of the right hip, 2 views. 2: X-ray of the right knee, 3 views. COMPARISON: CT scan of the chest, abdomen, and pelvis with contrast dated 01/06/2019. FINDINGS: X-ray of the right hip shows a nondisplaced fracture of the superior right pubic ramus and inferior right pubic ramus medially and laterally. There is no other fracture of the right hip or pelvis seen. The right femur bone shows no acute fracture. There is no fracture of the right knee region. There is chondrocalcinosis involving the medial and lateral compartments of the knee which may be seen with CPPD. There is no knee effusion. There is mild prepatellar soft tissue swelling. There is mild to moderate medial compartment narrowing. RIGHT HIP/PELVIS AND RIGHT KNEE IMPRESSION: 1: There is a nondisplaced fracture involving the superior right pubic ramus. 2: There is a nondisplaced fracture involving the inferior right pubic ramus. 3: There is no fracture of the right femur or right knee regions. 4: There is chondrocalcinosis involving the knee which may be seen with CPPD. Dictated by: Dictated on workstation # [id number]
[2022-07-16] MEDS ORDERED: LACTULOSE SYRUP 10GM/15ML (ENULOSE) 30ML UDC PO PRN (14:45)
[2022-07-16] MEDS ORDERED: CALCIUM CARBONATE 500 MG (TUMS) TAB.CHEW PO PRN (14:45)
[2022-07-16] MEDS ORDERED: ONDANSETRON 4 MG/2 ML (SDV) Z0FRAN IV PRN (14:45)
[2022-07-16] MEDS ORDERED: morphine INJ 10 MG/ML 1ML (SYR OR VIAL) IVP PRN (14:45)
[2022-07-16] MEDS ORDERED: MILK OF MAGNESIA 400 MG/5 ML 30 ML UDC PO PRN (14:45)
[2022-07-16] MEDS ORDERED: ANTACID SUSP 30 ML UDC (MYLANTA) PO PRN (14:45)
[2022-07-16] MEDS ORDERED: polyethylene glycoL POWDER 17 GM (MIRALAX) PACK PO PRN (14:45)
[2022-07-16] MEDS ORDERED: ONDANSETRON 4 MG (ZOFRAN) ORAL DISSOLVE TAB PO PRN (14:45)
[2022-07-16] MEDS ORDERED: BISACODYL 10 MG SUPP (DULCOLAX) PR PRN (14:45)
[2022-07-16 15:23] VITALS: BP 149/84
[2022-07-16] MEDS ORDERED: RT-ALBUTEROL SULF 2.5 MG/3 ML PRE-MIX VIAL INH PRN (15:30)
--- NOTE | 2022-07-16 15:31 | Occ Therapy Progress Note ---
Therapy Progress Note OT order received, per nursing request, OT to begin 07/17/22. WILMER DYSON OT Jul 16, 2022 15:31
[2022-07-16 15:37] VITALS: BP 169/96
[2022-07-16] MEDS: inSUlin ASPART (NovoLOG) 1 UNIT/0.01 ML (CHARGE PER UNIT) SC SCH ×4 (16:14→20:18)
[2022-07-16 19:04] VITALS: BP 153/85
[2022-07-16] MEDS ORDERED: hydrALAZINE (APESOLINE) 20 MG/ML VIAL IV PRN (19:30)
[2022-07-16] MEDS: DOCUSATE SODIUM 100 MG (COLACE) CAP PO SCH (20:18)
[2022-07-16] MEDS: SACUBITRIL/VALSARTAN 24/26 MG (ENTRESTO) TABLET PO SCH (20:18)
[2022-07-16] MEDS: SENNOSIDES 8.6 MG (SENOKOT) TAB PO SCH (20:18)
[2022-07-16] MEDS: fentaNYL INJ 100 MCG/2 ML AMP IVP PRN (21:59)
[2022-07-16 23:12] VITALS: BP 161/92
[2022-07-17] MEDS: fentaNYL INJ 100 MCG/2 ML AMP IVP PRN ×4 (00:23→23:09)
[2022-07-17 04:30] VITALS: BP 158/83
[2022-07-17 05:29] LABS: BASOPHILS # (AUTO) 0.1 10^3/uL (0.0-0.1); BASOPHILS % (AUTO) 0 % (0-10); EOSINOPHILS # (AUTO) 0.1 10^3/uL (0.0-0.3); EOSINOPHILS % (AUTO) 1 % (0-10); HEMATOCRIT 31 % (40-54); HEMOGLOBIN 9.4 g/dL (13.3-17.7); LYMPHOCYTES # (AUTO) 0.7 10^3/uL (1.0-4.0); LYMPHOCYTES % (AUTO) 6 % (12-44); MEAN CORPUSCULAR HEMOGLOBIN 26 pg (25-34); MEAN CORPUSCULAR HGB CONC 31 g/dL (32-36); MEAN CORPUSCULAR VOLUME 83 fL (80-99); MEAN PLATELET VOLUME 10.8 fL (9.0-12.2); MONOCYTES # (AUTO) 1.6 10^3/uL (0.0-1.0); MONOCYTES % (AUTO) 14 % (0-12); NEUTROPHILS % (AUTO) 78 % (42-75); PLATELET COUNT 223 10^3/uL (130-400); WHITE BLOOD COUNT 11.5 10^3/uL (4.3-11.0)
[2022-07-17 06:00] LABS: CALCIUM 8.9 MG/DL (8.5-10.1); CREATININE SERUM 1.55 MG/DL (0.60-1.30); MAGNESIUM 1.7 MG/DL (1.6-2.4); POTASSIUM 4.4 MMOL/L (3.6-5.0)
[2022-07-17] MEDS: KCL 20 MEQ TAB (K-DUR) PO SCH (06:07)
[2022-07-17] MEDS: POTASSIUM BICARB 20 MEQ (EFFER-K) TABLET PO SCH (06:07)
[2022-07-17] MEDS: MAGNESIUM 1 GM/100 ML IVPB 100 ML IV SCH (06:08)
[2022-07-17] MEDS: POTASSIUM CL 10MEQ/50ML IVPB 50 ML IV SCH (06:08)
[2022-07-17] MEDS: inSUlin ASPART (NovoLOG) 1 UNIT/0.01 ML (CHARGE PER UNIT) SC SCH ×4 (06:08→22:34)
[2022-07-17 07:20] VITALS: BP 153/87
--- NOTE | 2022-07-17 07:27 | CONSULTATION REPORT ---
DATE OF SERVICE: 07/17/2022 INPATIENT CONSULTATION REASON FOR CONSULTATION: Pelvic fracture. HISTORY OF PRESENT ILLNESS: The patient is a 77-year-old gentleman who fell 2 days prior to presentation and had complaints of right-sided hip pain and rib pain. He was found ultimately to have rami fractures on the right as well as rib fractures for which he was admitted. He denies antecedent pain. PHYSICAL EXAMINATION: On exam, the right lower extremity is painful with internal and external rotation. He has intact dorsiflexion and plantarflexion of the toes. Pulses are symmetric. Radiographs reveal right superior and inferior pubic rami fractures that did extend near the acetabulum, but not intra-articular. This is a stable fracture pattern. IMPRESSION: Right-sided rami fractures. RECOMMENDATIONS: Weightbearing as tolerated with a walker. We will follow the patient up as an outpatient. This was treated in a nonoperative manner. Thank you for the consultation. Job ID: [id number] DocumentID: [id number] Dictated Date: 07/17/2022 07:06:52 Nuclear Physician Date: 07/17/2022 07:25:00 Dictated By: NILO BELLO MD
[2022-07-17] MEDS: DOCUSATE SODIUM 100 MG (COLACE) CAP PO SCH ×2 (07:59→22:30)
[2022-07-17] MEDS: SACUBITRIL/VALSARTAN 24/26 MG (ENTRESTO) TABLET PO SCH ×2 (07:59→22:30)
[2022-07-17] MEDS: SENNOSIDES 8.6 MG (SENOKOT) TAB PO SCH ×2 (07:59→22:32)
[2022-07-17] MEDS: predniSONE 5 MG TAB PO SCH (08:00)
[2022-07-17] MEDS: CLOPIDOGREL 75 MG (PLAVIX) TABLET PO SCH (08:00)
[2022-07-17] MEDS: AMIODARONE 200 MG (CORDARONE) TAB PO SCH (08:00)
[2022-07-17] MEDS: ACETAMINOPHEN 325 MG TABLET PO PRN (08:19)
--- NOTE | 2022-07-17 10:19 | Physical Therapy Evaluation ---
PT Evaluation-General Medical Diagnosis Admission Date Jul 16, 2022 at 14:21 Medical Diagnosis: pelvic/rib fractures Onset Date: Jul 16, 2022 Therapy Diagnosis Therapy Diagnosis: generalized weakness/debility Height/Weight Height (Feet): 5 Height (Inches): 10.00 Weight (Pounds): 187 Weight (Ounces): 2.0 Precautions Precautions/Isolations: Fall Prevention, Standard Precautions Weight Bear Status Right Lower Extremity: Right Weight Bearing/Tolerated Left Lower Extremity: Left Full Weight Bearing Referral Physician: Ayaka Reason for Referral: Evaluation/Treatment Medical History Pertinent Medical History: CAD, CVA, DM, HTN, Rheumatoid Arthritis Current History EMS secondary to fall ~2 days prior to admit. Reviewed History: Yes Social History Home: Single Level Current Living Status: Spouse Prior Prior Level of Function SCALE: Activities may be completed with or without assistive devices. 7-Meydeconwa-gbwkkrm completes the activity by him/herself with no assistance from a helper. 5-Set-up or Clean-up Assistance-helper sets up or cleans up; patient completes activity. [place] assists only prior to or following the activity. 4-Supervision or Touching Assistance-helper provides verbal cues and/or touching/steadying and/or contact guard assistance as patient completes activity. Assistance may be provided throughout the activity or intermittently. 3-Partial/Moderate Assistance-helper does LESS THAN HALF the effort. [place] lifts, holds or supports trunk or limbs, but provides less than half the effort. 2-Substantial/Maximal Assistance-helper does MORE THAN HALF the effort. [place] lifts or holds trunk or limbs and provides more than half the effort. 0-Mircrmncs-kofpoz does ALL the effort. Patient does none of the effort to co mplete the activity. Or, the assistance of 2 or more helpers is required for the patient to complete the activity. If activity was not attempted, code reason: 7-Patient Refused. 9-Not Applicable-not attempted and the patient did not perform the activity before the current illness, exacerbation or injury. 10-Not Attempted due to Environmental Limitations-(lack of equipment, weather restraints, etc.). 88-Not Attempted due to Medical Conditions or Safety Concerns. Bed Mobility: 6 Transfers (B,C,W/C): 6 Gait: 6 Stairs: 6 Indoor Mobility (Ambulation): Independent Prior Devices Use: None PT Evaluation-Current Subjective Patient is currently very confused. He is having difficulty with following simple direction. Pain Numeric Pain Scale: 10-Worst Possible Pain Location: Right Location Body Site: Side Pain Description: Acute Comment: FLACC/yelling Objective Patient Orientation: Confused Attachments: Oxygen ROM/Strength ROM Lower Extremities right LE limited due to pain/left LE WFL Strength Lower Extremities 3/5 grossly bilateral LE (unable to formally test due to patient's confusion) Integumentary/Posture Bladder Incontinence: Yes Posture trunk flexed posture Neuromuscular (Tone, Coordination, Reflexes) diminished coordination due to weakness/confusion/inactivity Sensory Vision: Functional Hearing: Impaired Transfers Roll Left to Right (QC): 1 (x 2) Sit to Lying (QC): 1 (x 2) Lying to Sitting/Side of Bed(Q: 1 (x 2) Sit to Stand (QC): 1 (x 2) Chair/Dne-ch-Rznwf Xfer(QC): 1 (x2) Gait Does the Patient Walk?: No and Walking Goal IS indicated Walk 10 feet (QC): 88 Balance Sitting Static: Poor Sitting Dynamic: Poor Standing Static: Poor Standing Dynamic: Poor Assessment/Needs Patient will benefit from skilled PT to address functional strength and mobility to improve current LOF. Patient is currently dependent assist of 2 with all mobility with patient yelling during the entire session. Rehab Potential: Guarded PT Short Term Goals Short Term Goals Time Frame: Aug 01, 2022 Roll Left & Right: 2 Sit to lyin Lying to sitting on side of be: 2 Sit to stand: 2 Chair/ptl-ec-oosvz transfer: 2 Walk 10 feet: 2 PT Small Offset Printer Goals Small Offset Printer Goals PT Small Offset Printer Goals Time Frame: August 22, 2022 Roll Left & Right (QC): 4 Sit to Lying (QC): 4 Lying-Sitting on Side/Bed(QC): 4 Sit to Stand (QC): 4 Chair/Rfn-wv-Jdxog Xfer(QC): 4 Toilet Transfer (QC): 4 Walk 10 feet (QC): 4 Walk 50ft with 2 Turns (QC): 4 PT Plan Problem List Problem List: Activity Tolerance, Functional Strength, Safety, Balance, Gait, Transfer, Bed Mobility Treatment/Plan Treatment Plan: Continue Plan of Care Treatment Plan: Bed Mobility, Education, Functional Activity Hector, Functional Strength, Gait, Safety, Therapeutic Exercise, Transfers Treatment Duration: August 22, 2022 Frequency: 6 times per week Estimated Hrs Per Day: .25 hour per day Time Time In: 845 Time Out: 905 DATE: Jul 17, 2022 Total Billed Treatment Time: 20 Total Billed Treatment 1 visit [facility] 20 min SARAN COOK PT Jul 17, 2022 10:19
--- NOTE | 2022-07-17 10:23 | Occupational Therapy Eval ---
OT Evaluation-General/PLF Medical Diagnosis Admission Date Jul 16, 2022 at 14:21 Medical Diagnosis: pelvic fracture Onset Date: Jul 16, 2022 Therapy Diagnosis Therapy Diagnosis: weakness Height/Weight Height (Feet): 5 Height (Inches): 10.00 Weight (Pounds): 187 Weight (Ounces): 2.0 Precautions Precautions/Isolations: Fall Prevention (alarms), Standard Precautions Safety Interventions: Bed Exit Alarm Weight Bear Status Weight Bearing Restriction: Weight Bearing/Tolerated Location Restriction: R LE Referral Referral Reason: Activity Tolerance, Self Care, Evaluation/Treatment, Strengthening/ROM Referral Comments pelvic and rib fx Medical History Pertinent Medical History: Alcoholism, CAD, CVA, DM, HTN Current History Patient fell at home post intoxication, rib and pelvic fractures Reviewed History: Yes Social History Home: Single Level Current Living Status: Spouse Entry Into Home: Stairs With Railing ADL-Prior Level of Function SCALE: Activities may be completed with or without assistive devices. 5-Vtqibngtzt-vdcpuxo completes the activity by him/herself with no assistance from a helper. 5-Set-up or Clean-up Assistance-helper sets up or cleans up; patient completes activity. [place] assists only prior to or following the activity. 4-Supervision or Touching Assistance-helper provides verbal cues and/or touching/steadying and/or contact guard assistance as patient completes activity. Assistance may be provided throughout the activity or intermittently. 3-Partial/Moderate Assistance-helper does LESS THAN HALF the effort. [place] lifts, holds or supports trunk or limbs, but provides less than half the effort. 2-Substantial/Maximal Assistance-helper does MORE THAN HALF the effort. [place] lifts or holds trunk or limbs and provides more than half the effort. 0-Zzajrzmlr-lbqcgm does ALL the effort. Patient does none of the effort to complete the activity. Or, the assistance of 2 or more helpers is required for the patient to complete the activity. If activity was not attempted, code reason: 7-Patient Refused. 9-Not Applicable-not attempted and the patient did not perform the activity before the current illness, exacerbation or injury. 10-Not Attempted due to Environmental Limitations-(lack of equipment, weather restraints, etc.). 88-Not Attempted due to Medical Conditions or Safety Concerns. Self Care: Independent Functional Cognition: Independent Drive Self: No OT Current Status Subjective Patient requires encouragement to participate, patient hollers in anticipation of pain, slowly performs functional mobility Mental Status/Objective Patient Orientation: Confused Attachments: Oxygen Current Glasses/Contacts: Yes Upper Extremity ROM BUE ROM WFLS however requires encouragement to reach for own cup of water Upper Extremity Coordination shaking tremors noted BUEs FMC impaired Upper Extremity Strength Unable to fully asses d/t patient c/o pain and resistance to perform tasks ADL-Treatment Eating (QC): 3 (Nurse reports feeding patient seeral bites, Patient, has low motivation to perform tasks) Oral Hygiene (QC): 3 Shower/Bathe Self (QC): 2 Upper Body Dressing (QC): 2 Lower Body Dressing (QC): 1 On/Off Footwear (QC): 1 Toileting Hygiene (QC): 1 Education OT Patient Education: Modified ADL techniques, Progress toward Goal/Update tx plan, Purpose of tx/functional activities, Reviewed precautions, Rehab process, Safety issues, Transfer techniques Teaching Recipient: Patient Teaching Methods: Demonstration, Discussion Response to Teaching: Reinforcement Needed OT Accountant Bookkeeper Goals Accountant Bookkeeper Goals Eating (QC): 6 Oral Hygiene (QC): 6 Toileting Hygiene (QC): 6 Shower/Bathe Self (QC): 6 Upper Body Dressing (QC): 6 Lower Body Dressing (QC): 6 On/Off Footwear (QC): 6 1=Demonstrate adherence to instructed precautions during ADL tasks. 2=Patient will verbalize/demonstrate understanding of assistive devices/modifications for ADL. 3=Patient will improve strength/tolerance for activity to enable patient to perform ADL's. OT Education/Plan Problem List/Assessment Assessment: Decreased Activ Tolerance, Decreased Safety Aware, Decreased UE Strength, Dependent Transfers, Impaired Coordination, Impaired Funct Balance, Impaired Self-Care Skills Discharge Recommendations Plan/Recommendations: Continue POC Therapy Discharge Recommendati: Post Acute OT Treatment Plan/Plan of Care Treatment,Training & Education: Yes Patient would benefit from OT for education, treatment and training to promote independence in ADL's, mobility, safety and/or upper extremity function for ADL's. Plan of Care: ADL Retraining, Functional Mobility, Group Exercise/Act as Ind, UE Funct Exercise/Act Treatment Duration: Jul 25, 2022 Frequency: 3 times per week (3-5 times per week) Agreement: Yes Rehab Potential: Guarded Time Start Time: 08:45 Stop Time: 09:05 DATE: Jul 17, 2022 Total Time Billed (hr/min): 20 Billed Treatment Time EVM 20 min WILMER DYSON OT Jul 17, 2022 10:23
[2022-07-17 11:33] VITALS: BP 129/85
--- NOTE | 2022-07-17 12:01 | History & Physical-Hospitalist ---
ESTRELLITA HOPPER 07/17/22 1201: History of Present Illness HPI/Chief Complaint Luis Alberto Wiseman is a 77yo male whom presented due to fall occurring 3 days ago and constant stabbing right sided pain. Pt was walking up the stairs and fell backwards and landed on his right side. Pt has associated painful breathing w/ deep inspiration. Movement/exertion aggravates pain on right side, and pain medication has helped alleviate pain. Pt states that he has fallen a lot more recently. Pt son at bedside stated pt has been experiencing dizziness and loss of balance for the past several months. Son states pt is typically sharp mentally, but feels that he is altered due to pain medication. At this time patient was oriented to person and year. Pt denied Fever, Chills, N/V/D, Abdominal Pain, Chest Pain, Headache. Date Seen 07/17/22 Time Seen by a Provider: 07:00 Attending Physician Davis Caldera DO PCP Admitting Physician: Urbano Bowen MD Attending Physician: Urbano Bowen MD Referring Physician Date of Admission Jul 16, 2022 at 14:21 Home Medications & Allergies Home Medications Reviewed patient Home Medication Reconciliation performed by pharmacy medication reconciliations cooling tower technician and/or nursing. Patients Allergies have been reviewed. Allergies Allergies Coded Allergies hydrocodone (Verified Allergy, Intermediate, RASH, 07/16/22) oxycodone (Verified Allergy, Intermediate, RASH, 07/16/22) formaldehyde (Verified Allergy, Unknown, 07/16/22) Past Hoaksdo-Jfktzv-Atzmdv Hx Patient Social History Tobacco Use?: No Smoking Status: Never a Smoker Use of E-Cig and/or Vaping dev: No Substance use?: No Alcohol Use?: Yes Additional alcohol type: ER REPORTS FAMILY STATES HE DRINKS WHISKEY Alcohol Frequency: Daily Pt feels they are or have been: No Immunizations Up To Date Date of Influenza Vaccine: Jan 03, 2022 First/Initial COVID19 Vaccinat: yes Second COVID19 Vaccination Mazin: yes Tetanus Booster (TDap): Less Than 5 Years PED Vaccines UTD: Yes Date of Pneumonia Vaccine: Aug 02, 2011 Seasonal Allergies Seasonal Allergies: No Current Status Advance Directives: No Communicates: Verbally Primary Language: Serbian Preferred Spoken Language: Serbian Is interpretation needed?: No Implanted or Applied Medical D: Insulin pump Past Medical History Surgeries: Abdominal, Bowel Surgery, Cardiac, Gallbladder, Orthopedic, Penile Implant, Renal, Transurethral Resection, Vascular Surgery Currently Using BIPAP: No Heart Murmur, Irregular Heartbeat Neuropathy Sexually Transmitted Disease: No HIV/AIDS: No Benign Prostatic Hyperpl, Prostate Problems, Bladder Infection Abdominal Hernia, Gastroesophageal Reflux, Obstructive Bowel, Chronic Constipation Arthritis, Rheumatoid Arthritis Diabetes, Insulin dep Lymphoma, Colon Did You Recieve Any Treatments: Yes What Type of Treatment Did You: Chemotherapy, Other Blood Disorders: Yes (anemia) Adverse Reaction/Blood Tranf: No Family Medical History Congestive heart failure 19 MOTHER Family history: Diabetes mellitus 19 MOTHER No Family History of: Abdominal aortic aneurysm Alcoholism Cancer Dementia Family history: Allergy Family history: Alzheimer's disease Family history: Arthritis Family history: Asthma Family history: Breast disease Family history: Cardiovascular disease Family history: Gastrointestinal disease Family history: Thyroid disorder Myocardial infarction Psychotic disorder Seizure disorder Stroke 08/02/19--PERIPHERAL ANGIOGRAM--SMALL VESSEL DISEASE, NO INTERVENTION. 06/21/19--NORMAL COLONOSCOPY Review of Systems Constitutional: No chills, No fever Cardiovascular: No chest pain Gastrointestinal: No abdominal pain, No diarrhea; loss of appetite; No nausea, No vomiting Musculoskeletal: joint pain, other (Right sided leg, rib, and shoulder pain ) Psychiatric/Neurological: Denies Headache Physical Exam Physical Exam Vital Signs Vital Signs - First Documented 07/16/22 07/16/22 07/16/22 11:03 15:23 15:37 Temp 37.0 Pulse 80 Resp 16 B/P (MAP) 149/84 (105) Pulse Ox 100 O2 Delivery Nasal Cannula O2 Flow Rate 4.00 FiO2 21 Capillary Refill : Less Than 3 Seconds Height, Weight, BMI Height: 5'10.00" Weight: 187lbs. 2.0oz. 84.155195ho; 28.63 BMI Method:Estimated General Appearance: No Apparent Distress Respiratory: Lungs Clear, Normal Breath Sounds, Other (Tenderness Right Upper Ribs ) Cardiovascular: Regular Rate, Rhythm, No Edema, Normal Peripheral Pulses Gastrointestinal: Normal Bowel Sounds, Non Tender, Soft Extremity: Swelling (Left LE ), Other (Tenderness to RLE; R. Shoulder Tenderness) Neurologic/Psychiatric: Alert; No Oriented x3; Disoriented Results Results/Procedures Labs Laboratory Tests 07/16/22 11:20 07/17/22 05:20 Patient resulted labs reviewed. Assessment/Plan Admission Diagnosis R. Superior and Inferior Pubic Fracture R. 4th, 5th, 6th Lateral Rib Fracture CT Chest Abdomen and Pelvis Right 4th through 6th rib fractures. No other significant abnormality is detected Right-sided pelvic fractures involving the right superior and inferior pubic rami and right ischium with extension towards the posterior column of the acetabulum. Soft tissue hematoma lateral to the right hip is noted. Ortho Consulted - Recommended Conservative Treatment; Weight Bearing as Tolerated PT Evaluation- Needed significant aid to move from bed to chair Discussed Inpatient Rehab v. Residential; Will allow for weekend to make decision and see improvements with mobility Pain Management Start Pain Medication as needed Stool Softeners as needed due to Opioid side-effect of constipation RICHARD on CKD Improved with IVF Anemia: Iron Panel Ordered- Pt's hgb dropped from 10.1 to 9.4; Pt is currently not getting any replacement fluid that would cause dilution of blood Iron Supplementation if Deficient Rheumatoid Arthritis Leukocytosis Start Prednisone- Likely cause of mild Leukocytosis Insulin Dependent Diabetes Mellitus Start Insulin Detemir Start Insulin Sliding Scale CHF HTN Start Metoprolol Start Hydrochlorothiazide Atrial Fibrillation Start Amiodarone Start Rivaroxaban CAD Start Clopidogrel Start Atrovastatin URBANO BOWEN MD 07/17/22 1831: History of Present Illness Source: patient, family Exam Limitations: no limitations Time Seen by a Provider: 11:05 Past Irwpmbl-Mkyzru-Kmawrk Hx Past Medical History High Cholesterol, Hypertension Diabetes, Insulin dep Lymphoma Family Medical History Congestive heart failure 19 MOTHER Family history: Diabetes mellitus 19 MOTHER No Family History of: Abdominal aortic aneurysm Alcoholism Cancer Dementia Family history: Allergy Family history: Alzheimer's disease Family history: Arthritis Family history: Asthma Family history: Breast disease Family history: Cardiovascular disease Family history: Gastrointestinal disease Family history: Thyroid disorder Myocardial infarction Psychotic disorder Seizure disorder Stroke Physical Exam Physical Exam General Appearance: No Apparent Distress, WD/WN HEENT: PERRL/EOMI, Pharynx Normal Neck: Normal Inspection, Supple Respiratory: No Chest Non Tender; Lungs Clear, Normal Breath Sounds, No Respiratory Distress Cardiovascular: Regular Rate, Rhythm, No Edema, No Murmur Gastrointestinal: Normal Bowel Sounds, Non Tender, Soft Extremity: Normal Inspection, Swelling (Left LE ) Neurologic/Psychiatric: Alert, Disoriented Skin: Normal Color, Warm/Dry Results Results/Procedures Imaging: Reviewed Imaging Films, Reviewed Imaging Report Assessment/Plan Admission Diagnosis Pelvic and rib fractures. Admission Status: Inpatient Order (span 2 midnights) Reason for Inpatient Admission: Fall Debility Pain Assessment and Plan Admitted after a fall with pelviic fractures and rib fractures. Very debilitated requiring significant assistance. Unable to return home safely at this time. Continue PT/OT. Discharge plan pending progress. Possibly IRU, possibly SNF. Unlikely to improve enough for discharge directly back home Diagnosis/Problems Diagnosis/Problems (1) Pelvic fracture Status: Acute (2) Rib fractures Status: Acute Qualifiers: Encounter type: initial encounter Fracture type: closed Laterality: right Qualified Codes: S22.41XA - Multiple fractures of ribs, right side, initial encounter for closed fracture (3) Acute kidney injury superimposed on chronic kidney disease Status: Acute (4) Anemia Status: Acute (5) Debility Status: Acute Supervisory-Addendum Brief Verification & Attestation Participated in pt care: history, MDM, physical Personally performed: exam, history, MDM, supervision of care Care discussed with: Medical Student Procedures: n/a Results interpretation: Verified all documentation A medical student performed and documented this service in my presence. I reviewed and verified all information documented by the medical student and made modifications to such information, when appropriate. I personally performed the physical exam and medical decision making. ESTRELLITA HOPPER Jul 17, 2022 12:01 URBANO BOWEN MD Jul 17, 2022 18:31
[2022-07-17 16:00] VITALS: BP 137/79
[2022-07-17] MEDS: SUCRALFATE 1 GM (CARAFATE) TAB PO SCH ×2 (16:42→22:31)
[2022-07-17] MEDS: RIVAROXABAN 20 MG TABLET (XARELTO) PO SCH (18:13)
[2022-07-17] MEDS ORDERED: inSUlin ASPART (NovoLOG) 1 UNIT/0.01 ML (CHARGE PER UNIT) ONE (22:26)
[2022-07-18] VITALS: BP 148/88
[2022-07-18 05:44] LABS: BASOPHILS % (AUTO) 0 % (0-10); EOSINOPHILS % (AUTO) 0 % (0-10); HEMATOCRIT 29 % (40-54); HEMOGLOBIN 9.1 g/dL (13.3-17.7); LYMPHOCYTES # (AUTO) 0.6 10^3/uL (1.0-4.0); LYMPHOCYTES % (AUTO) 7 % (12-44); MEAN CORPUSCULAR HEMOGLOBIN 26 pg (25-34); MEAN CORPUSCULAR HGB CONC 31 g/dL (32-36); MEAN CORPUSCULAR VOLUME 82 fL (80-99); MEAN PLATELET VOLUME 10.8 fL (9.0-12.2); MONOCYTES % (AUTO) 11 % (0-12); NEUTROPHILS # (AUTO) 7.4 10^3/uL (1.8-7.8); NEUTROPHILS % (AUTO) 81 % (42-75); PLATELET COUNT 242 10^3/uL (130-400); WHITE BLOOD COUNT 9.2 10^3/uL (4.3-11.0)
[2022-07-18 06:01] LABS: CALCIUM 9.1 MG/DL (8.5-10.1); CREATININE SERUM 1.61 MG/DL (0.60-1.30); MAGNESIUM 1.8 MG/DL (1.6-2.4); POTASSIUM 3.8 MMOL/L (3.6-5.0)
[2022-07-18] MEDS ORDERED: KCL 20 MEQ TAB (K-DUR) PO ONE ×2 (06:30→10:00)
[2022-07-18] MEDS ORDERED: NS (IVPB) 50 ML ONE (06:37)
[2022-07-18] MEDS: SUCRALFATE 1 GM (CARAFATE) TAB PO SCH ×4 (06:47→21:05)
[2022-07-18] MEDS: KCL 20 MEQ TAB (K-DUR) PO SCH (06:47)
[2022-07-18] MEDS: inSUlin ASPART (NovoLOG) 1 UNIT/0.01 ML (CHARGE PER UNIT) SC SCH ×3 (06:47→21:07)
[2022-07-18 08:15] VITALS: BP 185/90
[2022-07-18] MEDS: AMIODARONE 200 MG (CORDARONE) TAB PO SCH (08:20)
[2022-07-18] MEDS: DOCUSATE SODIUM 100 MG (COLACE) CAP PO SCH ×2 (08:21→21:05)
[2022-07-18] MEDS: CLOPIDOGREL 75 MG (PLAVIX) TABLET PO SCH (08:21)
[2022-07-18] MEDS: PANTOPRAZOLE 40 MG (PROTONIX) TAB PO SCH (08:21)
[2022-07-18] MEDS: predniSONE 5 MG TAB PO SCH (08:21)
[2022-07-18] MEDS: SACUBITRIL/VALSARTAN 24/26 MG (ENTRESTO) TABLET PO SCH ×2 (08:21→21:04)
[2022-07-18] MEDS: SENNOSIDES 8.6 MG (SENOKOT) TAB PO SCH ×2 (08:21→21:04)
[2022-07-18] MEDS: ACETAMINOPHEN 325 MG TABLET PO PRN ×2 (08:22→21:05)
[2022-07-18] MEDS: MAGNESIUM 1 GM/100 ML IVPB 100 ML IV SCH ×3 (08:27→09:36)
--- NOTE | 2022-07-18 09:10 | Physical Therapy Daily Note ---
PT Daily Note-Current Subjective Patient sitting in chair upon PT arrival, agreeable to treatment. Patient unable to rate pain. Pain Section J - Health Conditions 1. Rarely or not at all 2. Occasionally 3. Frequently 4. Almost constantly 8. Unable to answer Pain Effect on Sleep: 8 Pain Interference with Therapy: 8 Pain Interference w/Day-to-Day: 8 Mental Status Patient Orientation: Person Transfers SCALE: Activities may be completed with or without assistive devices. 3-Vqzvgyephs-urpqccw completes the activity by him/herself with no assistance from a helper. 5-Set-up or Clean-up Assistance-helper sets up or cleans up; patient completes activity. [place] assists only prior to or following the activity. 4-Supervision or Touching Assistance-helper provides verbal cues and/or touching/steadying and/or contact guard assistance as patient completes activity. Assistance may be provided throughout the activity or intermittently. 3-Partial/Moderate Assistance-helper does LESS THAN HALF the effort. [place] lifts, holds or supports trunk or limbs, but provides less than half the effort. 2-Substantial/Maximal Assistance-helper does MORE THAN HALF the effort. [place] lifts or holds trunk or limbs and provides more than half the effort. 9-Vzauaxfwi-bbvijn does ALL the effort. Patient does none of the effort to complete the activity. Or, the assistance of 2 or more helpers is required for the patient to complete the activity. If activity was not attempted, code reason: 7-Patient Refused. 9-Not Applicable-not attempted and the patient did not perform the activity before the current illness, exacerbation or injury. 10-Not Attempted due to Environmental Limitations-(lack of equipment, weather restraints, etc.). 88-Not Attempted due to Medical Conditions or Safety Concerns. Sit to Stand (QC): 2 Weight Bearing Right Lower Extremity: Right Weight Bearing/Tolerated Left Lower Extremity: Left Full Weight Bearing Exercises Seated Therapy Exercises: Ankle pumps, Long arc quads, Hamstring Curls Seated Reps: 20 Standing Reps: 1 Assessment Current Status: Poor Progress Patient tolerated treatment poorly due to pain. Required frequent breaks and frequent verbal cues to stay on task. Patient performs LE therapeutic exercise as listed above. Performs sit to stand with max A and verbal cues for performance. Patient attempts to ambulate per his request, however requires total A for 1 step and reports severe increase in pain. Patient requests to sit and states "I'm done." Patient in chair post treatment with all needs met, nursing notified, call light in reach and chair alarm activated. PT Short Term Goals Short Term Goals Time Frame: Aug 01, 2022 Roll Left & Right: 2 Sit to lyin Lying to sitting on side of be: 2 Sit to stand: 2 Chair/auj-ya-pmtji transfer: 2 Walk 10 feet: 2 PT Longterm Goals Longterm Goals PT Longterm Goals Time Frame: August 22, 2022 Roll Left & Right (QC): 4 Sit to Lying (QC): 4 Lying-Sitting on Side/Bed(QC): 4 Sit to Stand (QC): 4 Chair/Tqr-xv-[employer] Xfer(QC): 4 Toilet Transfer (QC): 4 Walk 10 feet (QC): 4 Walk 50ft with 2 Turns (QC): 4 PT Plan Treatment/Plan Treatment Plan: Continue Plan of Care Treatment Plan: Bed Mobility, Education, Functional Activity Hector, Functional Strength, Gait, Safety, Therapeutic Exercise, Transfers Treatment Duration: August 22, 2022 Frequency: 6 times per week Estimated Hrs Per Day: .25 hour per day Safety Risks/Education Patient Education: Transfer Techniques Teaching Recipient: Patient Teaching Methods: Demonstration, Discussion Response to Teaching: Reinforcement Needed Time Time In: 825 Time Out: 850 DATE: Jul 18, 2022 Total Billed Treatment Time: 25 Total Billed Treatment Visit, Ex, [facility] PT Jul 18, 2022 09:10
[2022-07-18] MEDS: POTASSIUM CL 10MEQ/50ML IVPB 50 ML IV SCH (09:16)
[2022-07-18] MEDS: POTASSIUM BICARB 20 MEQ (EFFER-K) TABLET PO SCH (09:16)
[2022-07-18 11:39] VITALS: BP 114/68
--- NOTE | 2022-07-18 14:40 | Progress Note - Hospitalist ---
ESTRELLITA HOPPER 07/18/22 1440: Subjective HPI/CC On Admission Date Seen by Provider: Jul 18, 2022 Luis Alberto Wiseman is a 77yo male whom presented due to fall occurring 3 days ago and constant stabbing right sided pain. Pt was walking up the stairs and fell backwards and landed on his right side. Pt has associated painful breathing w/ deep inspiration. Movement/exertion aggravates pain on right side, and pain medication has helped alleviate pain. Pt states that he has fallen a lot more recently. Pt son at bedside stated pt has been experiencing dizziness and loss of balance for the past several months. Son states pt is typically sharp mentally, but feels that he is altered due to pain medication. At this time patient was oriented to person and year. Pt denied Fever, Chills, N/V/D, Abdominal Pain, Chest Pain, Headache. Subjective/Events-last exam Pt was sitting in chair talking to son upon arrival for interview/assessment. Pt states that he is doing well and better than yesterday. Pt still has significant right sided pain from LE to Shoulder, but states he will just have to adjust to it. Pt is continuing to have sharp pain with deep inspiration. Physical Therapy was limited yesterday and today due to pain. Today patient had audiology assistant with ambulation but stopped after one step due to significant pain. At rest pt seems to have minimal right sided pain but is exacerbated with deep inspiration or movement.Pt denies fever, chills, N/V/D, abdominal pain, and chest pain. Review of Systems General: No Chills Pulmonary: No Dyspnea, No Cough Cardiovascular: No: Chest Pain Gastrointestinal: No: Nausea, Vomiting, Abdominal Pain, Diarrhea Objective Exam Vital Signs Vital Signs Date Time Temp Pulse Resp B/P (MAP) Pulse Ox O2 Delivery O2 Flow Rate FiO2 07/18/22 11:39 37.0 81 18 114/68 (83) 98 Nasal Cannula 3.00 07/16/22 15:23 21 Capillary Refill : Less Than 3 Seconds General Appearance: No Apparent Distress Respiratory: Lungs Clear, Normal Breath Sounds, No Accessory Muscle Use Cardiovascular: Regular Rate, Rhythm, No Murmur, Normal Peripheral Pulses Gastrointestinal: Normal Bowel Sounds, Non Tender, Soft Extremity: Swelling (Moderate Swelling of LE b/l) Neurologic/Psychiatric: Alert, Other (Mildly Confused ) Results/Procedures Lab Laboratory Tests 07/18/22 05:00 Patient resulted labs reviewed. Imaging: Reviewed Imaging Films, Reviewed Imaging Report Assessment/Plan Assessment and Plan Assess & Plan/Chief Complaint R. Superior and Inferior Pubic Fracture R. 4th, 5th, 6th Lateral Rib Fracture CT Chest Abdomen and Pelvis Right 4th through 6th rib fractures. No other significant abnormality is detected Right-sided pelvic fractures involving the right superior and inferior pubic rami and right ischium with extension towards the posterior column of the acetabulum. Soft tissue hematoma lateral to the right hip is noted. Ortho Consulted - Recommended Conservative Treatment; Weight Bearing as Tolerated PT Evaluation- Needed significant aid to move from bed to chair Discussed Inpatient Rehab v. [facility]; Will allow for weekend to make decision and see improvements with mobility Pain Management Start Pain Medication as needed Stool Softeners as needed due to Opioid side-effect of constipation RICHARD on CKD Improved with IVF Anemia: Iron Panel Ordered- Pt's hgb dropped from 10.1 to 9.4; Pt is currently not getting any replacement fluid that would cause dilution of blood Iron Supplementation if Deficient Rheumatoid Arthritis Leukocytosis Start Prednisone- Likely cause of mild Leukocytosis Insulin Dependent Diabetes Mellitus Continue Insulin Detemir Continue Insulin Sliding Scale CHF HTN Continue Metoprolol Continue Hydrochlorothiazide Continue Sacubitril/Valsartan Atrial Fibrillation Continue Amiodarone Continue Rivaroxaban CAD Continue Clopidogrel Continue Atrovastatin URBANO BOWEN MD 07/18/22 1727: Subjective HPI/CC On Admission Time Seen by Provider: 11:50 Assessment/Plan Assessment and Plan Assess & Plan/Chief Complaint Continue PT/OT. Making minor improvements. Will likely require SNF on discharge. Increase insulin. Increase Metoprolol. Diagnosis/Problems Diagnosis/Problems (1) Pelvic fracture (2) Rib fractures Status: Acute Qualifiers: Qualified Codes: S22.41XA - Multiple fractures of ribs, right side, initial encounter for closed fracture (3) Debility Status: Acute (4) Anemia Status: Acute (5) T2DM (type 2 diabetes mellitus) Status: Acute Qualifiers: Qualified Codes: E11.65 - Type 2 diabetes mellitus with hyperglycemia; Z79.4 - emt intermediate (current) use of insulin (6) HTN (hypertension) Status: Acute Supervisory-Addendum Brief Verification & Attestation Participated in pt care: history, MDM, physical Personally performed: exam, history, MDM, supervision of care Care discussed with: Medical Student Procedures: n/a Results interpretation: Verified all documentation A medical student performed and documented this service in my presence. I reviewed and verified all information documented by the medical student and made modifications to such information, when appropriate. I personally performed the physical exam and medical decision making. ESTRELLITA HOPPER Jul 18, 2022 14:40 URBANO BOWEN MD Jul 18, 2022 17:27
[2022-07-18 15:29] VITALS: BP 158/77
[2022-07-18] MEDS: RIVAROXABAN 20 MG TABLET (XARELTO) PO SCH (16:56)
[2022-07-18] MEDS: MELATONIN 3 MG TABLET PO PRN (21:04)
[2022-07-19 00:13] VITALS: BP 114/67
[2022-07-19 06:34] LABS: BASOPHILS % (AUTO) 0 % (0-10); EOSINOPHILS # (AUTO) 0.1 10^3/uL (0.0-0.3); EOSINOPHILS % (AUTO) 1 % (0-10); HEMATOCRIT 28 % (40-54); HEMOGLOBIN 8.6 g/dL (13.3-17.7); LYMPHOCYTES # (AUTO) 0.6 10^3/uL (1.0-4.0); LYMPHOCYTES % (AUTO) 7 % (12-44); MEAN CORPUSCULAR HEMOGLOBIN 26 pg (25-34); MEAN CORPUSCULAR HGB CONC 31 g/dL (32-36); MEAN CORPUSCULAR VOLUME 82 fL (80-99); MEAN PLATELET VOLUME 10.8 fL (9.0-12.2); MONOCYTES # (AUTO) 1.2 10^3/uL (0.0-1.0); MONOCYTES % (AUTO) 13 % (0-12); NEUTROPHILS # (AUTO) 7.3 10^3/uL (1.8-7.8); NEUTROPHILS % (AUTO) 79 % (42-75); PLATELET COUNT 252 10^3/uL (130-400); WHITE BLOOD COUNT 9.4 10^3/uL (4.3-11.0)
[2022-07-19] MEDS: inSUlin ASPART (NovoLOG) 1 UNIT/0.01 ML (CHARGE PER UNIT) SC SCH ×4 (06:40→20:31)
[2022-07-19 06:45] LABS: CALCIUM 8.9 MG/DL (8.5-10.1); CREATININE SERUM 1.52 MG/DL (0.60-1.30); MAGNESIUM 1.7 MG/DL (1.6-2.4); POTASSIUM 3.6 MMOL/L (3.6-5.0)
[2022-07-19] MEDS ORDERED: KCL 20 MEQ TAB (K-DUR) PO ONE ×2 (07:30→08:00)
[2022-07-19 08:17] VITALS: BP 129/71
[2022-07-19] MEDS: MAGNESIUM 1 GM/100 ML IVPB 100 ML IV SCH ×5 (08:29→11:50)
[2022-07-19] MEDS: POTASSIUM CL 10MEQ/50ML IVPB 50 ML IV SCH (08:29)
[2022-07-19] MEDS: KCL 20 MEQ TAB (K-DUR) PO SCH (08:30)
[2022-07-19] MEDS: POTASSIUM BICARB 20 MEQ (EFFER-K) TABLET PO SCH (08:30)
[2022-07-19] MEDS: PANTOPRAZOLE 40 MG (PROTONIX) TAB PO SCH (08:45)
[2022-07-19] MEDS: meTOproloL SUCCINATE 50 MG (TOPROL XL) TAB PO SCH (08:45)
[2022-07-19] MEDS: predniSONE 5 MG TAB PO SCH (08:45)
[2022-07-19] MEDS: DOCUSATE SODIUM 100 MG (COLACE) CAP PO SCH ×2 (08:45→20:18)
[2022-07-19] MEDS: SACUBITRIL/VALSARTAN 24/26 MG (ENTRESTO) TABLET PO SCH ×2 (08:45→20:18)
[2022-07-19] MEDS: AMIODARONE 200 MG (CORDARONE) TAB PO SCH (08:45)
[2022-07-19] MEDS: SENNOSIDES 8.6 MG (SENOKOT) TAB PO SCH ×2 (08:45→20:18)
[2022-07-19] MEDS: CLOPIDOGREL 75 MG (PLAVIX) TABLET PO SCH (08:45)
[2022-07-19] MEDS: SUCRALFATE 1 GM (CARAFATE) TAB PO SCH ×4 (08:45→20:18)
--- NOTE | 2022-07-19 10:30 | Physical Therapy Progress Note ---
Therapy Progress Note Nurse requested hold as patients pain has not been under control since last evening and patient very agitated. Nurse also reports physician is on his way up to assess the patient as he has developed a large bleeding area on his right UE. Will hold today and attempt treatment again on 07/20/22. VA MALCOLM PT Jul 19, 2022 10:30
[2022-07-19 10:49] VITALS: BP 129/71
--- NOTE | 2022-07-19 11:25 | Diagnostic Imaging Report ---
EXAMINATION: Right elbow radiograph EXAM DATE: 07/19/2022 11:12 AM COMPARISON: None available. HISTORY: Right elbow pain TECHNIQUE: 3 views FINDINGS: There is no acute fracture, dislocation, or destructive osseous process. Along the posterior olecranon, there are new linear calcifications which are new from 07/16/2022. The joint spaces are normal. There is mild soft tissue swelling about the elbow. IMPRESSION: 1. New linear calcifications along the posterior olecranon which are indeterminate but could represent small avulsion fracture. No other acute osseous abnormality is identified. 2. Diffuse soft tissue swelling. Dictated by: Dictated on workstation # [id number]
[2022-07-19] MEDS ORDERED: fentaNYL INJ 100 MCG/2 ML AMP IVP PRN (11:30)
--- NOTE | 2022-07-19 11:37 | Diagnostic Imaging Report ---
EXAMINATION: Right forearm radiograph EXAM DATE: 07/19/2022 11:12 AM COMPARISON: None available. HISTORY: Right arm pain TECHNIQUE: 2 views FINDINGS: Cortical irregularity is seen along the distal right radius and distal right ulna with joint space narrowing. Mild soft tissue swelling about the right arm. IMPRESSION: 1. Cortical irregularity is seen along the distal right radius and ulna, incompletely characterized on this radiograph. These could represent acute fractures and a right wrist radiograph would be recommended for better evaluation. Dictated by: Dictated on workstation # [id number]
--- NOTE | 2022-07-19 11:38 | Diagnostic Imaging Report ---
EXAMINATION: Right humerus radiograph EXAM DATE: 07/19/2022 11:12 AM COMPARISON: None available. HISTORY: Right arm pain and swelling TECHNIQUE: 2 views FINDINGS: There is no acute fracture, dislocation, or destructive osseous process. The joint spaces are normal. The soft tissues are normal. IMPRESSION: 1. No acute osseous abnormality. Dictated by: Dictated on workstation # [id number]
--- NOTE | 2022-07-19 13:40 | Progress Note - Hospitalist ---
ESTRELLITA HOPPER 07/19/22 1340: Subjective HPI/CC On Admission Date Seen by Provider: Jul 19, 2022 Time Seen by Provider: 08:30 Luis Alberto Wiseman is a 77yo male whom presented due to fall occurring 3 days ago and constant stabbing right sided pain. Pt was walking up the stairs and fell backwards and landed on his right side. Pt has associated painful breathing w/ deep inspiration. Movement/exertion aggravates pain on right side, and pain medication has helped alleviate pain. Pt states that he has fallen a lot more recently. Pt son at bedside stated pt has been experiencing dizziness and loss of balance for the past several months. Son states pt is typically sharp mentally, but feels that he is altered due to pain medication. At this time patient was oriented to person and year. Pt denied Fever, Chills, N/V/D, Abdominal Pain, Chest Pain, Headache. Subjective/Events-last exam Pt was laying in bed while interviewed. Pt family was at bedside; they were concerned due to new purplish discoloration of the R. arm with associated swelling that began yesterday. Pt stated that his R. sided pain persists, but didn't give me a pain scale when asked. Pt states that there is a warmness feeling to the R. arm, and pain shoot shoots up from wrist to underneath armpit. Pt denies fever, chills, N/V/D, Abdominal Pain, Chest Pain, Numbness/Tingling. Review of Systems General: No Chills Cardiovascular: No: Chest Pain Gastrointestinal: No: Nausea, Vomiting, Abdominal Pain, Diarrhea Musculoskeletal: shoulder pain (Right ), arm pain (Right), leg pain (Right) Neurological: No: Numbness Objective Exam Vital Signs Vital Signs Date Time Temp Pulse Resp B/P (MAP) Pulse Ox O2 Delivery O2 Flow Rate FiO2 07/19/22 10:49 36.2 75 99 28 07/19/22 10:27 Nasal Cannula 2.00 07/19/22 08:17 16 129/71 (90) Capillary Refill : Less Than 3 Seconds General Appearance: No Apparent Distress, Chronically ill Respiratory: Chest Non Tender, Lungs Clear, Normal Breath Sounds Cardiovascular: Regular Rate, Rhythm, No Edema, No Murmur, Normal Peripheral Pulses Gastrointestinal: Normal Bowel Sounds, Non Tender, Soft Extremity: Pedal Edema (b/l), Swelling (b/l LE; R. Arm ) Neurologic/Psychiatric: Alert Skin: Warm/Dry, Ecchymosis Results/Procedures Lab Laboratory Tests 07/19/22 05:40 Patient resulted labs reviewed. Imaging: Reviewed Imaging Films, Reviewed Imaging Report Assessment/Plan Assessment and Plan Assess & Plan/Chief Complaint R. Superior and Inferior Pubic Fracture R. 4th, 5th, 6th Lateral Rib Fracture CT Chest Abdomen and Pelvis Right 4th through 6th rib fractures. No other significant abnormality is detected Right-sided pelvic fractures involving the right superior and inferior pubic rami and right ischium with extension towards the posterior column of the acetabulum. Soft tissue hematoma lateral to the right hip is noted. Ortho Consulted - Recommended Conservative Treatment; Weight Bearing as Tolerated PT Evaluation- Needed significant aid to move from bed to chair Discussed Inpatient Rehab v. Snf; Will allow for weekend to make decision and see improvements with mobility R. Arm Swelling Likely Secondary to recent fall. Purplish discoloration is present indicating eccimosis Vitals Labs are stable as well as absence in risk factors make DIC unlikely Normal Pulse, warm and absence of parenthesis, paralysis and piokilothermia makes compartment syndrome unlikely Imaging: X-Ray Elbow: New linear calcifications along the posterior olecranon which are indeterminate but could represent small avulsion fracture; Diffuse Soft Tissue Swellingg Forearm: Cortical irregularity is seen along the distal right radius and ulna; could represent acute fractures Humerus: No acute abnormalities Ordered Right Wrist radiograph; Awaiting Results and will continue to monitor Acute Agitation Administer Haldol prn Pain Management Pain Medication as needed Stool Softeners as needed due to Opioid side-effect of constipation RICHARD on CKD Improved with IVF Anemia Secondary to Chronic Labs are stable Rheumatoid Arthritis Continue Prednisone Insulin Dependent Diabetes Mellitus Continue Insulin Detemir Continue Insulin Sliding Scale CHF HTN Continue Metoprolol Continue Hydrochlorothiazide Continue Sacubitril/Valsartan Atrial Fibrillation Continue Amiodarone Continue Rivaroxaban CAD Continue Clopidogrel Continue Atrovastatin URBANO BOWEN MD 07/19/22 1700: Subjective HPI/CC On Admission Time Seen by Provider: 10:20 Assessment/Plan Assessment and Plan Assess & Plan/Chief Complaint Continue pain management. Xrays ordered due to new complaints or right arm pain. PT/OT ordered. Will likely require SNF placement. Adjust insulin regimen due to hypoglycemia. Diagnosis/Problems Diagnosis/Problems (1) Pelvic fracture Status: Acute (2) Rib fractures Status: Acute Qualifiers: Qualified Codes: S22.41XA - Multiple fractures of ribs, right side, initial encounter for closed fracture (3) Anemia Status: Acute Qualifiers: Qualified Codes: D50.0 - Iron deficiency anemia secondary to blood loss (chronic) (4) Acute kidney injury superimposed on chronic kidney disease Status: Acute (5) Debility Status: Acute (6) T2DM (type 2 diabetes mellitus) Status: Acute Qualifiers: Qualified Codes: E11.649 - Type 2 diabetes mellitus with hypoglycemia without coma; Z79.4 - custodial (current) use of insulin (7) HTN (hypertension) Status: Acute Supervisory-Addendum Brief Verification & Attestation Participated in pt care: history, MDM, physical Personally performed: exam, history, MDM, supervision of care Care discussed with: Medical Student Procedures: n/a Results interpretation: Verified all documentation A medical student performed and documented this service in my presence. I r eviewed and verified all information documented by the medical student and made modifications to such information, when appropriate. I personally performed the physical exam and medical decision making. ESTRELLITA HOPPER Jul 19, 2022 13:40 URBANO BOWEN MD Jul 19, 2022 17:00
--- NOTE | 2022-07-19 13:41 | Diagnostic Imaging Report ---
EXAMINATION: Right wrist radiographs, 3 views. COMPARISON: None. HISTORY: 77-year-old male, right wrist pain. Recent fall. FINDINGS: There is severe radiocarpal joint space loss and ulnocarpal joint space loss of [id number] articulation. There are vascular calcifications. There is no identified acute fracture. There is no subluxation or dislocation. IMPRESSION: 1. No identified acute bony abnormality of the right wrist. 2. Severe radiocarpal arthritis. This can be seen with an inflammatory arthropathy such as rheumatoid arthritis. Dictated by: Dictated on workstation # [id number]
[2022-07-19 16:18] VITALS: BP 125/79
[2022-07-19] MEDS: fentaNYL INJ 100 MCG/2 ML AMP IVP PRN ×5 (16:33→23:53)
[2022-07-19] MEDS: RIVAROXABAN 20 MG TABLET (XARELTO) PO SCH (17:43)
[2022-07-19] MEDS: HALOPERIDOL 5 MG/ML (HALDOL) VIAL IM PRN ×2 (18:45→22:42)
[2022-07-19 19:46] VITALS: BP 132/70
[2022-07-19] MEDS: MELATONIN 3 MG TABLET PO PRN (21:53)
[2022-07-19] MEDS: WATER (STERILE) FOR INJ 10 ML BTL INJ SCH (22:53)
[2022-07-19] MEDS: ZIPRASIDONE 20 MG INJ (GEODON) VIAL IM PRN (22:53)
[2022-07-20] VITALS (9 sets, daily range): BP systolic 102–204; BP diastolic 58–119
[2022-07-20] MEDS: fentaNYL INJ 100 MCG/2 ML AMP IVP PRN ×8 (01:12→23:40)
[2022-07-20] MEDS: inSUlin ASPART (NovoLOG) 1 UNIT/0.01 ML (CHARGE PER UNIT) SC SCH ×4 (05:45→21:32)
[2022-07-20 05:52] LABS: BASOPHILS % (AUTO) 0 % (0-10); EOSINOPHILS # (AUTO) 0.1 10^3/uL (0.0-0.3); EOSINOPHILS % (AUTO) 1 % (0-10); HEMATOCRIT 27 % (40-54); HEMOGLOBIN 8.6 g/dL (13.3-17.7); LYMPHOCYTES # (AUTO) 0.6 10^3/uL (1.0-4.0); LYMPHOCYTES % (AUTO) 7 % (12-44); MEAN CORPUSCULAR HEMOGLOBIN 26 pg (25-34); MEAN CORPUSCULAR HGB CONC 31 g/dL (32-36); MEAN CORPUSCULAR VOLUME 82 fL (80-99); MEAN PLATELET VOLUME 10.3 fL (9.0-12.2); MONOCYTES # (AUTO) 1.1 10^3/uL (0.0-1.0); MONOCYTES % (AUTO) 14 % (0-12); NEUTROPHILS # (AUTO) 6.3 10^3/uL (1.8-7.8); NEUTROPHILS % (AUTO) 77 % (42-75); PLATELET COUNT 250 10^3/uL (130-400); WHITE BLOOD COUNT 8.2 10^3/uL (4.3-11.0)
[2022-07-20 06:11] LABS: CALCIUM 8.7 MG/DL (8.5-10.1); CREATININE SERUM 1.82 MG/DL (0.60-1.30); MAGNESIUM 2.1 MG/DL (1.6-2.4)
[2022-07-20] MEDS: POTASSIUM BICARB 20 MEQ (EFFER-K) TABLET PO SCH (06:12)
[2022-07-20] MEDS: POTASSIUM CL 10MEQ/50ML IVPB 50 ML IV SCH (06:12)
[2022-07-20] MEDS: KCL 20 MEQ TAB (K-DUR) PO SCH (06:12)
[2022-07-20] MEDS: MAGNESIUM 1 GM/100 ML IVPB 100 ML IV SCH (06:12)
[2022-07-20] MEDS: SUCRALFATE 1 GM (CARAFATE) TAB PO SCH ×4 (06:28→21:29)
--- NOTE | 2022-07-20 09:50 | Occ Therapy Progress Note ---
Therapy Progress Note Per RN and family, hold therapy this morning. WILMER DYSON OT Jul 20, 2022 09:50
--- NOTE | 2022-07-20 10:00 | Physical Therapy Progress Note ---
Therapy Progress Note Patient has been sedated due to agitation. Family requests no therapy at this time. RN, SW and physician notified. Will attempt later today. 1 ref SARAN COOK PT Jul 20, 2022 10:00
[2022-07-20] MEDS: HALOPERIDOL 5 MG/ML (HALDOL) VIAL IM PRN (10:02)
[2022-07-20] MEDS: DOCUSATE SODIUM 100 MG (COLACE) CAP PO SCH ×2 (10:11→21:30)
[2022-07-20] MEDS: SACUBITRIL/VALSARTAN 24/26 MG (ENTRESTO) TABLET PO SCH ×2 (10:11→21:30)
[2022-07-20] MEDS: CLOPIDOGREL 75 MG (PLAVIX) TABLET PO SCH (10:11)
[2022-07-20] MEDS: predniSONE 5 MG TAB PO SCH (10:11)
[2022-07-20] MEDS: AMIODARONE 200 MG (CORDARONE) TAB PO SCH (10:11)
[2022-07-20] MEDS: SENNOSIDES 8.6 MG (SENOKOT) TAB PO SCH ×2 (10:12→21:30)
[2022-07-20] MEDS: meTOproloL SUCCINATE 50 MG (TOPROL XL) TAB PO SCH (10:12)
[2022-07-20] MEDS: PANTOPRAZOLE 40 MG (PROTONIX) TAB PO SCH (10:12)
[2022-07-20] MEDS ORDERED: 1/2 NS IV SOLUTION 1,000 ML IV PRN (10:15)
[2022-07-20] MEDS ORDERED: LORazepam INJ 2 MG/ML (ATIVAN) VIAL IM/IV PRN (10:15)
[2022-07-20] MEDS ORDERED: SENNA W/DOCUSATE (SENOKOT S) TABLET PO PRN (10:15)
[2022-07-20] MEDS ORDERED: LORazepam 1 MG (ATIVAN) TAB PO PRN (10:15)
[2022-07-20] MEDS ORDERED: ONDANSETRON 4 MG (ZOFRAN) ORAL DISSOLVE TAB SL PRN (10:15)
[2022-07-20] MEDS ORDERED: ONDANSETRON 4 MG/2 ML (SDV) Z0FRAN IV PRN (10:15)
[2022-07-20] MEDS ORDERED: D5 1/2 NS 1000 ML IV SOLUTION 1,000 ML IV PRN (10:15)
[2022-07-20] MEDS ORDERED: ANTACID SUSP 30 ML UDC (MYLANTA) PO PRN (10:15)
[2022-07-20] MEDS: LORazepam INJ 2 MG/ML (ATIVAN) VIAL IV PRN ×4 (10:34→17:48)
--- NOTE | 2022-07-20 12:13 | Progress Note - Hospitalist ---
Subjective HPI/CC On Admission Date Seen by Provider: Jul 20, 2022 Luis Alberto Wiseman is a 77yo male whom presented due to fall occurring 3 days ago and constant stabbing right sided pain. Pt was walking up the stairs and fell backwards and landed on his right side. Pt has associated painful breathing w/ deep inspiration. Movement/exertion aggravates pain on right side, and pain medication has helped alleviate pain. Pt states that he has fallen a lot more recently. Pt son at bedside stated pt has been experiencing dizziness and loss of balance for the past several months. Son states pt is typically sharp mentally, but feels that he is altered due to pain medication. At this time patient was oriented to person and year. Pt denied Fever, Chills, N/V/D, Abdominal Pain, Chest Pain, Headache. Subjective/Events-last exam Pt laying in bed. No specific complaints but moaning occasionally. yells "wait wait!" when no one was doing anything or attempting to move him. Returned to room and family there and state confusion is worsening. He occasionally is confused at home but not as bad as he is here. Discussed alcohol use and withd ankit symptoms compounded by known issues with delirium during hospitalization. Objective Exam Vital Signs Vital Signs Date Time Temp Pulse Resp B/P (MAP) Pulse Ox O2 Delivery O2 Flow Rate FiO2 07/20/22 10:35 79 07/20/22 07:50 36.2 18 104/59 (74) Nasal Cannula 3.00 07/20/22 06:21 93 07/19/22 10:49 28 Capillary Refill : Less Than 3 Seconds General Appearance: Chronically ill, Other (confusion) Respiratory: Lungs Clear, No Accessory Muscle Use Cardiovascular: Regular Rate, Rhythm, No Murmur Gastrointestinal: Normal Bowel Sounds Neurologic/Psychiatric: Other Results/Procedures Lab Laboratory Tests 07/20/22 05:40 Patient resulted labs reviewed. Imaging: Reviewed Imaging Films, Reviewed Imaging Report Assessment/Plan Assessment and Plan Assess & Plan/Chief Complaint R. Superior and Inferior Pubic Fracture R. 4th, 5th, 6th Lateral Rib Fracture Right arm pain and bruising Ortho consulted, recommends conservative management Right arm imaging without fracture Pulse and sensation intact, likely due to infiltration PT/OT IRF eval when able Fentanyl for pain Alcohol Withdrawal Daily alcohol use Received Haldol and Geodon overnight reports regular alcohol use Dicussed with her and son risk of withdrawal CIWA protocol ordered RICHARD on CKD Creatinine up slightly today, trend Rheumatoid Arthritis Continue home Prednisone Insulin Dependent Diabetes Mellitus Continue home insulin SSI CHF HTN A fib CAD Refusing oral meds Switch metoprolol to IV try to resume other when withdrawal symptoms improved TARAN COLON MD Jul 20, 2022 12:13
[2022-07-20] MEDS: meTOprolol 5 MG/5 ML (LOPRESSOR) VIAL IV SCH ×3 (12:32→23:35)
--- NOTE | 2022-07-20 13:26 | Physical Therapy Progress Note ---
Therapy Progress Note Patient is currently unable to actively participate with skilled therapy. Family declined PT at this time. Will attempt tomorrow a.m. 1 ref SARAN COOK PT Jul 20, 2022 13:26
[2022-07-20] MEDS: WATER (STERILE) FOR INJ 10 ML BTL INJ SCH (13:50)
[2022-07-20] MEDS: ZIPRASIDONE 20 MG INJ (GEODON) VIAL IM PRN (13:50)
[2022-07-20 16:26] LABS: BILIRUBIN,URINE NEGATIVE (NEGATIVE); CLARITY,URINE CLEAR; COLOR,URINE YELLOW; GLUCOSE, URINE (UA) 2+ (NEGATIVE); KETONES,URINE NEGATIVE (NEGATIVE); LEUKOCYTE ESTERASE ,URINE NEGATIVE (NEGATIVE); NITRITE,URINE NEGATIVE (NEGATIVE); PH,URINE 5.5 (5-9); PROTEIN,URINE 1+ (NEGATIVE)
[2022-07-20] MEDS ORDERED: ENOXAPARIN 150 MG/ML (LOVENOX) SYR SQ SCH (16:30)
[2022-07-20 16:38] LABS: AMORPHOUS SEDIMENT,UR FEW AMOR URATES /LPF; BACTERIA,URINE FEW /HPF; WBC,URINE RARE /HPF
[2022-07-20] MEDS: ENOXAPARIN 100 MG/1 ML (LOVENOX) SYR SC SCH (16:45)
[2022-07-20] MEDS: MAGNESIUM OXIDE (MAG-OX)400 MG TAB PO SCH (21:30)
[2022-07-21 04:06] VITALS: BP 152/71
[2022-07-21] MEDS: inSUlin ASPART (NovoLOG) 1 UNIT/0.01 ML (CHARGE PER UNIT) SC SCH ×4 (05:51→21:23)
[2022-07-21] MEDS: THIAMINE 100 MG (VITAMIN B-1) TAB PO SCH (05:58)
[2022-07-21] MEDS: SUCRALFATE 1 GM (CARAFATE) TAB PO SCH ×3 (05:58→21:06)
[2022-07-21] MEDS: ENOXAPARIN 100 MG/1 ML (LOVENOX) SYR SC SCH ×2 (05:58→16:39)
[2022-07-21] MEDS: MULTIVIT W/MINERALS TAB (THERAGRAN M) PO SCH (05:58)
[2022-07-21] MEDS: meTOprolol 5 MG/5 ML (LOPRESSOR) VIAL IV SCH ×4 (05:58→23:52)
[2022-07-21 06:00] LABS: BASOPHILS % (AUTO) 0 % (0-10); EOSINOPHILS # (AUTO) 0.1 10^3/uL (0.0-0.3); EOSINOPHILS % (AUTO) 1 % (0-10); HEMATOCRIT 30 % (40-54); HEMOGLOBIN 9.2 g/dL (13.3-17.7); LYMPHOCYTES # (AUTO) 0.6 10^3/uL (1.0-4.0); LYMPHOCYTES % (AUTO) 6 % (12-44); MEAN CORPUSCULAR HEMOGLOBIN 25 pg (25-34); MEAN CORPUSCULAR HGB CONC 31 g/dL (32-36); MEAN CORPUSCULAR VOLUME 81 fL (80-99); MEAN PLATELET VOLUME 10.4 fL (9.0-12.2); MONOCYTES # (AUTO) 1.3 10^3/uL (0.0-1.0); MONOCYTES % (AUTO) 13 % (0-12); NEUTROPHILS # (AUTO) 7.8 10^3/uL (1.8-7.8); NEUTROPHILS % (AUTO) 79 % (42-75); PLATELET COUNT 293 10^3/uL (130-400); WHITE BLOOD COUNT 9.8 10^3/uL (4.3-11.0)
[2022-07-21] MEDS: LORazepam INJ 2 MG/ML (ATIVAN) VIAL IV PRN ×4 (06:01→23:52)
[2022-07-21] MEDS: fentaNYL INJ 100 MCG/2 ML AMP IVP PRN ×3 (06:20→22:17)
[2022-07-21 06:57] LABS: CALCIUM 8.7 MG/DL (8.5-10.1); POTASSIUM 4.2 MMOL/L (3.6-5.0)
[2022-07-21 06:58] LABS: CREATININE SERUM 1.65 MG/DL (0.60-1.30); MAGNESIUM 1.9 MG/DL (1.6-2.4)
[2022-07-21] MEDS: POTASSIUM CL 10MEQ/50ML IVPB 50 ML IV SCH (07:04)
[2022-07-21] MEDS: KCL 20 MEQ TAB (K-DUR) PO SCH (07:04)
[2022-07-21] MEDS: MAGNESIUM 1 GM/100 ML IVPB 100 ML IV SCH ×3 (07:04→13:06)
[2022-07-21] MEDS: POTASSIUM BICARB 20 MEQ (EFFER-K) TABLET PO SCH (07:04)
[2022-07-21 07:37] VITALS: BP 102/78
--- NOTE | 2022-07-21 09:38 | Occ Therapy Progress Note ---
Therapy Progress Note Patient family refused therapy this date, OT will continue to monitor WILMER DYSON OT Jul 21, 2022 09:38
--- NOTE | 2022-07-21 09:59 | Physical Therapy Progress Note ---
Therapy Progress Note Patient is heavily sedated. Family declined PT intervention at this time. Will attempt tomorrow a.m. 1 ref SARAN COOK PT Jul 21, 2022 09:59
--- NOTE | 2022-07-21 10:13 | Physician Query Clarification ---
Physician Query-General Query to Physician: The medical record reflects the following clinical evidence: Clinical Indicators: Continuous 02 use since admission up to 4L remains on 2L after >4 days, 02 sat decreased to 90 when attempting to wean to RA, also with sats of 90 to 91% on 3L (P/F=188), SOA with Exertion on admission, RR 16 to 22, Risk Factor(s): Daily Alcohol use with alcohol withdrawal, Multiple rib Fx, No documentation of home O2 use Treatment: Supplemental 02 use up to 4L, Albuterol, Monitoring of Respiratory status. Acute respiratory failure, with hypoxia, present on admission Other explanation of clinical findings Unable to determine (no explanation for clinical findings) Please clarify and document your clinical opinion in the progress notes and discharge summary including the definitive and/or presumptive diagnosis, (suspected or probable), related to the above clinical findings. Please include clinical findings supporting your diagnosis. Britany Kent, MSN, RN Clinical Continuous Improvement Specialist [phone] [email or web address] PHYSICIAN RESPONSE: Based on the clinical findings in the record, please respond to the query above on this document as an addendum. Physician Response: Physician Response Acute respiratory failure, with hypoxia, present on admission If you have questions please contact: Visual Arts Teacher: Ext: Thank you for your time and cooperation. Clinical Continuous Improvement Specialist/Visual Arts Teacher This is a permanent part of the medical record BRITANY KENT Jul 21, 2022 10:13 TARAN COLON MD Jul 22, 2022 15:19
--- NOTE | 2022-07-21 11:44 | Progress Note - Hospitalist ---
Subjective HPI/CC On Admission Date Seen by Provider: Jul 21, 2022 Luis Alberto Wiseman is a 77yo male whom presented due to fall occurring 3 days ago and constant stabbing right sided pain. Pt was walking up the stairs and fell backwards and landed on his right side. Pt has associated painful breathing w/ deep inspiration. Movement/exertion aggravates pain on right side, and pain medication has helped alleviate pain. Pt states that he has fallen a lot more recently. Pt son at bedside stated pt has been experiencing dizziness and loss of balance for the past several months. Son states pt is typically sharp mentally, but feels that he is altered due to pain medication. At this time patient was oriented to person and year. Pt denied Fever, Chills, N/V/D, Abdominal Pain, Chest Pain, Headache. Subjective/Events-last exam Pt sleeping soundly. Son reports he is doing better today and getting some rest. No complaints. Objective Exam Vital Signs Vital Signs Date Time Temp Pulse Resp B/P (MAP) Pulse Ox O2 Delivery O2 Flow Rate FiO2 07/21/22 10:01 Nasal Cannula 2.00 07/21/22 07:48 75 07/21/22 07:37 36.4 17 102/78 (86) 100 07/19/22 10:49 28 Capillary Refill : Less Than 3 Seconds General Appearance: No Apparent Distress, Chronically ill Respiratory: Lungs Clear, No Respiratory Distress Cardiovascular: Regular Rate, Rhythm, No Murmur Neurologic/Psychiatric: Other (sleeping soundly) Results/Procedures Lab Laboratory Tests 07/21/22 05:38 Patient resulted labs reviewed. Imaging: Reviewed Imaging Films, Reviewed Imaging Report Assessment/Plan Assessment and Plan Assess & Plan/Chief Complaint R. Superior and Inferior Pubic Fracture R. 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
[2022-07-21] MEDS: DOCUSATE SODIUM 100 MG (COLACE) CAP PO SCH ×2 (12:34→21:06)
[2022-07-21] MEDS: predniSONE 5 MG TAB PO SCH (12:34)
[2022-07-21] MEDS: AMIODARONE 200 MG (CORDARONE) TAB PO SCH (12:34)
[2022-07-21] MEDS: MAGNESIUM OXIDE (MAG-OX)400 MG TAB PO SCH ×2 (12:35→21:07)
[2022-07-21] MEDS: SENNOSIDES 8.6 MG (SENOKOT) TAB PO SCH ×2 (12:35→21:07)
[2022-07-21] MEDS: FOLIC ACID 1 MG TAB PO SCH (12:35)
[2022-07-21] MEDS: PANTOPRAZOLE 40 MG (PROTONIX) TAB PO SCH (12:35)
[2022-07-21] MEDS: CLOPIDOGREL 75 MG (PLAVIX) TABLET PO SCH (12:35)
[2022-07-21] MEDS: SACUBITRIL/VALSARTAN 24/26 MG (ENTRESTO) TABLET PO SCH ×2 (12:35→21:06)
--- NOTE | 2022-07-21 14:00 | Speech Therapy Progress Note ---
Therapy Progress Note Speech pathology received a clinical bedside swallowing evaluation and the chart was reviewed. At the time of the attempted evaluation, the RN requested a HOLD due to the patient recently receiving Ativan. ST will HOLD at this time and re- attempt on the subsequent treatment date. Thank you. ZULAY CHAPARRO Jul 21, 2022 14:00
[2022-07-21 15:52] VITALS: BP 144/74
[2022-07-21 20:23] VITALS: BP 124/67
[2022-07-21 23:44] VITALS: BP 148/68
[2022-07-22] MEDS: fentaNYL INJ 100 MCG/2 ML AMP IVP PRN ×6 (00:44→20:15)
[2022-07-22 04:30] VITALS: BP 170/87
[2022-07-22 06:15] LABS: BASOPHILS % (AUTO) 0 % (0-10); EOSINOPHILS # (AUTO) 0.1 10^3/uL (0.0-0.3); EOSINOPHILS % (AUTO) 1 % (0-10); HEMATOCRIT 29 % (40-54); HEMOGLOBIN 8.9 g/dL (13.3-17.7); LYMPHOCYTES # (AUTO) 0.7 10^3/uL (1.0-4.0); LYMPHOCYTES % (AUTO) 7 % (12-44); MEAN CORPUSCULAR HEMOGLOBIN 26 pg (25-34); MEAN CORPUSCULAR HGB CONC 31 g/dL (32-36); MEAN CORPUSCULAR VOLUME 83 fL (80-99); MEAN PLATELET VOLUME 10.3 fL (9.0-12.2); MONOCYTES # (AUTO) 1.4 10^3/uL (0.0-1.0); MONOCYTES % (AUTO) 13 % (0-12); NEUTROPHILS # (AUTO) 7.8 10^3/uL (1.8-7.8); NEUTROPHILS % (AUTO) 77 % (42-75); PLATELET COUNT 307 10^3/uL (130-400); WHITE BLOOD COUNT 10.2 10^3/uL (4.3-11.0)
[2022-07-22] MEDS: THIAMINE 100 MG (VITAMIN B-1) TAB PO SCH (06:31)
[2022-07-22] MEDS: SUCRALFATE 1 GM (CARAFATE) TAB PO SCH ×4 (06:31→22:15)
[2022-07-22] MEDS: meTOprolol 5 MG/5 ML (LOPRESSOR) VIAL IV SCH ×4 (06:31→23:22)
[2022-07-22] MEDS: ENOXAPARIN 100 MG/1 ML (LOVENOX) SYR SC SCH ×2 (06:31→16:32)
[2022-07-22] MEDS: MULTIVIT W/MINERALS TAB (THERAGRAN M) PO SCH (06:32)
[2022-07-22 06:37] LABS: CALCIUM 8.9 MG/DL (8.5-10.1); CREATININE SERUM 1.46 MG/DL (0.60-1.30); POTASSIUM 3.9 MMOL/L (3.6-5.0)
[2022-07-22 06:51] LABS: LYMPHOCYTES % (MANUAL) 10 %; MONOCYTES % (MANUAL) 7 %; NEUTROPHILS % (MANUAL) 83 %
[2022-07-22] MEDS: inSUlin ASPART (NovoLOG) 1 UNIT/0.01 ML (CHARGE PER UNIT) SC SCH ×5 (06:51→21:42)
[2022-07-22] MEDS: POTASSIUM BICARB 20 MEQ (EFFER-K) TABLET PO SCH (06:51)
[2022-07-22] MEDS: KCL 20 MEQ TAB (K-DUR) PO SCH (06:51)
[2022-07-22] MEDS: POTASSIUM CL 10MEQ/50ML IVPB 50 ML IV SCH ×3 (06:51→08:15)
[2022-07-22] MEDS: MAGNESIUM 1 GM/100 ML IVPB 100 ML IV SCH (06:51)
[2022-07-22 06:52] LABS: ANISOCYTOSIS SLIGHT; PLATELET ESTIMATE ADEQUATE
[2022-07-22] MEDS: NS IV 500 ML 500 ML IV PRN (07:17)
[2022-07-22 07:23] VITALS: BP 151/66
[2022-07-22] MEDS: predniSONE 5 MG TAB PO SCH (08:15)
[2022-07-22] MEDS: AMIODARONE 200 MG (CORDARONE) TAB PO SCH (08:15)
[2022-07-22] MEDS: DOCUSATE SODIUM 100 MG (COLACE) CAP PO SCH ×2 (08:15→22:15)
[2022-07-22] MEDS: FOLIC ACID 1 MG TAB PO SCH (08:15)
[2022-07-22] MEDS: SACUBITRIL/VALSARTAN 24/26 MG (ENTRESTO) TABLET PO SCH ×2 (08:15→22:15)
[2022-07-22] MEDS: MAGNESIUM OXIDE (MAG-OX)400 MG TAB PO SCH ×2 (08:15→22:15)
[2022-07-22] MEDS: SENNOSIDES 8.6 MG (SENOKOT) TAB PO SCH ×2 (08:16→22:16)
[2022-07-22] MEDS: CLOPIDOGREL 75 MG (PLAVIX) TABLET PO SCH (08:16)
[2022-07-22] MEDS: PANTOPRAZOLE 40 MG (PROTONIX) TAB PO SCH (08:16)
--- NOTE | 2022-07-22 09:09 | Speech Therapy Progress Note ---
Therapy Progress Note Speech pathology attempted the clinical bedside swallowing evaluation at 0845. At that time, the RN was present in the room and stated the patient remained inappropriate for participation in the assessment and requested a HOLD. The clinician requested contact when/if the patient became appropriate for re- attempt of the assessment. At 09, the clinician received contact from the RN that the patient was appropriate. The clinician returned to the room, however, upon arrival the RN stated the patient was not participating well in trials of Jell-O, pudding, or ice chips. The RN stated the patient would masticate the ice chips but would frequently expectorate the material from the oral cavity. At th is time, a HOLD was again requested. ST to complete the evaluation when the patient displays appropriate ability for active participation. Thank you for the consultation. ZULAY CHAPARRO Jul 22, 2022 09:09
--- NOTE | 2022-07-22 09:32 | Physical Therapy Progress Note ---
Therapy Progress Note Nurse requested hold today as patient is currently sedated due to detox and severe pain. Will attempt to treat patient on 07/23/22 and progress as patient is able to tolerate. VA MALCOLM PT Jul 22, 2022 09:32
--- NOTE | 2022-07-22 10:25 | Occ Therapy Progress Note ---
Therapy Progress Note OT on hold at this time, will continue to monitor WILMER DYSON OT Jul 22, 2022 10:25
--- NOTE | 2022-07-22 15:04 | Progress Note - Hospitalist ---
Subjective HPI/CC On Admission Date Seen by Provider: Jul 22, 2022 Luis Alberto Wiseman is a 77yo male whom presented due to fall occurring 3 days ago and constant stabbing right sided pain. Pt was walking up the stairs and fell backwards and landed on his right side. Pt has associated painful breathing w/ deep inspiration. Movement/exertion aggravates pain on right side, and pain medication has helped alleviate pain. Pt states that he has fallen a lot more recently. Pt son at bedside stated pt has been experiencing dizziness and loss of balance for the past several months. Son states pt is typically sharp mentally, but feels that he is altered due to pain medication. At this time patient was oriented to person and year. Pt denied Fever, Chills, N/V/D, Abdominal Pain, Chest Pain, Headache. Subjective/Events-last exam Pt still drowsy. Writhing in pain at times but son at bedside and hoping to avoid pain medicines if able to help with mentation. He did wake up enough to try to eat this m orning but didn't eat much. Objective Exam Vital Signs Vital Signs Date Time Temp Pulse Resp B/P (MAP) Pulse Ox O2 Delivery O2 Flow Rate FiO2 07/22/22 14:12 94 Nasal Cannula 2.00 07/22/22 13:05 82 07/22/22 07:23 36.0 16 151/66 (94) 07/19/22 10:49 28 Capillary Refill : Less Than 3 Seconds General Appearance: Chronically ill Cardiovascular: Regular Rate, Rhythm, No Murmur Gastrointestinal: Normal Bowel Sounds, Soft Neurologic/Psychiatric: Other (did seem to acknowledge I was in the room but did not answer any questions) Results/Procedures Lab Laboratory Tests 07/22/22 05:38 Patient resulted labs reviewed. Imaging: Reviewed Imaging Films, Reviewed Imaging Report Assessment/Plan Assessment and Plan Assess & Plan/Chief Complaint R. Superior and Inferior Pubic Fracture R. 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
[2022-07-22 15:58] VITALS: BP 177/79
[2022-07-22] MEDS: D5 1/2 NS 1000 ML IV SOLUTION 1,000 ML IV SCH (16:34)
[2022-07-22] MEDS: THIAMINE INJECTION 100 MG in NS (IVPB) 50 ML IV SCH (16:43)
[2022-07-22 20:06] VITALS: BP 176/74
[2022-07-22] MEDS: LORazepam INJ 2 MG/ML (ATIVAN) VIAL IV PRN (21:41)
[2022-07-22 23:20] VITALS: BP 143/60
[2022-07-23] MEDS: fentaNYL INJ 100 MCG/2 ML AMP IVP PRN ×4 (02:53→12:32)
[2022-07-23 03:19] VITALS: BP 140/77
[2022-07-23 04:39] VITALS: BP 140/77
[2022-07-23] MEDS: inSUlin ASPART (NovoLOG) 1 UNIT/0.01 ML (CHARGE PER UNIT) SC SCH ×4 (05:26→20:54)
[2022-07-23] MEDS: THIAMINE 100 MG (VITAMIN B-1) TAB PO SCH (05:26)
[2022-07-23] MEDS: MULTIVIT W/MINERALS TAB (THERAGRAN M) PO SCH (05:26)
[2022-07-23] MEDS: ENOXAPARIN 100 MG/1 ML (LOVENOX) SYR SC SCH ×2 (05:30→17:33)
[2022-07-23] MEDS: D5 1/2 NS 1000 ML IV SOLUTION 1,000 ML IV SCH ×2 (05:30→15:59)
[2022-07-23] MEDS: SUCRALFATE 1 GM (CARAFATE) TAB PO SCH ×4 (05:31→21:58)
[2022-07-23] MEDS: meTOprolol 5 MG/5 ML (LOPRESSOR) VIAL IV SCH ×4 (05:31→23:43)
[2022-07-23 06:23] LABS: BASOPHILS % (AUTO) 0 % (0-10); EOSINOPHILS # (AUTO) 0.1 10^3/uL (0.0-0.3); EOSINOPHILS % (AUTO) 1 % (0-10); HEMATOCRIT 27 % (40-54); HEMOGLOBIN 8.1 g/dL (13.3-17.7); LYMPHOCYTES # (AUTO) 0.8 10^3/uL (1.0-4.0); LYMPHOCYTES % (AUTO) 7 % (12-44); MEAN CORPUSCULAR HEMOGLOBIN 25 pg (25-34); MEAN CORPUSCULAR HGB CONC 30 g/dL (32-36); MEAN CORPUSCULAR VOLUME 83 fL (80-99); MEAN PLATELET VOLUME 10.5 fL (9.0-12.2); MONOCYTES # (AUTO) 1.7 10^3/uL (0.0-1.0); MONOCYTES % (AUTO) 15 % (0-12); NEUTROPHILS # (AUTO) 8.4 10^3/uL (1.8-7.8); NEUTROPHILS % (AUTO) 75 % (42-75); PLATELET COUNT 332 10^3/uL (130-400); WHITE BLOOD COUNT 11.2 10^3/uL (4.3-11.0)
[2022-07-23 06:25] LABS: POTASSIUM 3.7 MMOL/L (3.6-5.0)
[2022-07-23 06:26] LABS: CALCIUM 8.7 MG/DL (8.5-10.1)
[2022-07-23 06:30] LABS: CREATININE SERUM 1.49 MG/DL (0.60-1.30)
[2022-07-23 06:32] LABS: MAGNESIUM 1.9 MG/DL (1.6-2.4)
[2022-07-23] MEDS: POTASSIUM CL 10MEQ/50ML IVPB 50 ML IV SCH ×3 (06:37→08:18)
[2022-07-23] MEDS: MAGNESIUM 1 GM/100 ML IVPB 100 ML IV SCH ×3 (06:38→11:20)
[2022-07-23] MEDS: KCL 20 MEQ TAB (K-DUR) PO SCH (06:38)
[2022-07-23] MEDS: POTASSIUM BICARB 20 MEQ (EFFER-K) TABLET PO SCH (06:38)
[2022-07-23 07:34] VITALS: BP 139/73
[2022-07-23] MEDS: PANTOPRAZOLE 40 MG (PROTONIX) TAB PO SCH (08:00)
[2022-07-23] MEDS: AMIODARONE 200 MG (CORDARONE) TAB PO SCH (08:00)
[2022-07-23] MEDS: FOLIC ACID 1 MG TAB PO SCH (08:00)
[2022-07-23] MEDS: MAGNESIUM OXIDE (MAG-OX)400 MG TAB PO SCH (08:00)
[2022-07-23] MEDS: SACUBITRIL/VALSARTAN 24/26 MG (ENTRESTO) TABLET PO SCH ×2 (08:00→21:59)
[2022-07-23] MEDS: CLOPIDOGREL 75 MG (PLAVIX) TABLET PO SCH (08:00)
[2022-07-23] MEDS: SENNOSIDES 8.6 MG (SENOKOT) TAB PO SCH ×2 (08:00→21:59)
[2022-07-23] MEDS: predniSONE 5 MG TAB PO SCH (08:00)
[2022-07-23] MEDS: DOCUSATE SODIUM 100 MG (COLACE) CAP PO SCH ×2 (08:00→21:59)
--- NOTE | 2022-07-23 08:36 | Occ Therapy Progress Note ---
Therapy Progress Note Family in patient room and request no therapy at this time d/t patient agitation and confusion, Patient continues to pull at lines. tubes and body appendages WILMER DYSON OT Jul 23, 2022 08:36
[2022-07-23] MEDS: THIAMINE INJECTION 100 MG in NS (IVPB) 50 ML IV SCH ×2 (09:42→10:05)
--- NOTE | 2022-07-23 09:55 | Physical Therapy Progress Note ---
Therapy Progress Note Patient's family declined PT intervention. Patient continues to receive medication to relax he due to increase agitation. PT will continue to attempt. SARAN COOK PT Jul 23, 2022 09:55
[2022-07-23] MEDS: cefTRIAXone IV/IM 1,000 MG in NS (IVPB) 50 ML IV SCH (09:59)
--- NOTE | 2022-07-23 10:16 | Speech Therapy Progress Note ---
Therapy Progress Note Speech pathology attempted the clinical bedside swallowing evaluation at 0840 on this date. At this time, the patient was requested to HOLD from RN as the patient was not deemed appropriate or safe for completion of the assessment. ST will continue re-attempts as able and the patient is appropriate. Thank you for the consultation. ZULAY CHAPARRO Jul 23, 2022 10:16
[2022-07-23] MEDS: LORazepam INJ 2 MG/ML (ATIVAN) VIAL IV PRN (11:11)
[2022-07-23] MEDS: DexMEDEtomidine 250 ML DRIP 250 ML IV SCH (12:04)
--- NOTE | 2022-07-23 13:54 | Tele-ICU Consult ---
History of Present Illness History of Present Illness Date Seen by Provider: Jul 23, 2022 Time Seen by Provider: 13:53 History of Present Illness (Tele-ICU Physician , consultation as per request of PCP Service provided via interactive audio and video telecommunications E-CARE system to a patient admitted to ICU bed in [facility]. Available chart/ vitals / labs / Images reviewed H&P is from ER notes Patient's information available about PMH, Shx, Fhx allergy reviewed inEMR. ROS as per chart and RN report Now in ICU, hemodynamically stable Video assessment done using teleICU camera, rest of exam as per RN Discussed with RN. Hospital course: 77 y/o maleadmitted 07/16 after fall pelvic and rib fracture 07/23 to ICU from floor with etoh withdrawal , on precedex A/P ETOH abuse /withdrawal syndrome -No hallucinations. No seizures - monitor -Continue supportive care on CIWA protocol- cont benzo, started on precedex -monitor vitals -follow lytes , cont thiamine Hypotension - new in ICU , seemds due to sedatives - follow closely - ? infection - will check cxr - no need for stress dose of steroids ( on home prednisone R. 4th, 5th, 6th Lateral Rib Fracture - now with decreased Sao2 - / shallow breathing vs splinting = at risk for PNA - will check cxr Leukocytosis - Cefepime started 07/23 am R. Superior and Inferior Pubic Fracture -Ortho consulted, recommends conservative management - pain control RICHARD on CKD -stable Rheumatoid Arthritis -on home Prednisone CAD, CHF - ECHO 2021 - EF 55% - RVSP 35 mm Hg Severe MR on ECHO 2021 PAF - rate controlled - on lovenox 100 bid DM -ISS PVD - plavix Lines : , (Central Line Necessity Reviewed) Parra: OG: Nutrition: Analgesia: Anxiety/ delirium VTE Prophylaxis: blaze 100 bid Stress Ulcer Prophylaxis: Glycemic Control: Plans in collaboration with bedside consultants and IM MDs. Discussed with RN to reach out if any questions or concerns A total of 34 minutes of critical care time was devoted to this patient today, required to treat and/or prevent further deterioration of critical care condition ( as above ) . I am remotely monitoring this patient from another state. I am unable to do the bedside exam, and history/physical and pertinent information is taken from other notes in the computer and bedside staff. . Allergies and Home Medications Allergies Coded Allergies: hydrocodone (Verified Allergy, Intermediate, RASH, 07/16/22) oxycodone (Verified Allergy, Intermediate, RASH, 07/16/22) formaldehyde (Verified Allergy, Unknown, 07/16/22) Home Medications Amiodarone HCl 200 Mg Tablet, 200 MG PO DAILY, (Reported) Atorvastatin Calcium 20 Mg Tablet, 20 MG PO HS, (Reported) Clopidogrel Bisulfate 75 Mg Tablet, 75 MG PO DAILY, (Reported) Ergocalciferol (Vitamin D2) 1,250 Mcg (68903 Unit) Capsule, 1,250 MCG PO WEDNESDAY, (Reported) Hydrochlorothiazide 25 Mg Tablet, 25 MG PO DAILY, (Reported) Insulin Aspart (Niacinamide) 100 Unit/Ml Vial, UNIT SQ AC, (Reported) USES PER SLIDING SCALE Metoprolol Succinate 25 Mg Tab.er.24h, 25 MG PO DAILY, (Reported) Prednisone 5 Mg Tablet, 5 MG PO DAILY, (Reported) Rivaroxaban 20 Mg Tablet, 20 MG PO 1800, (Reported) Sacubitril/Valsartan 24 Mg-26 Mg Tablet, 1 TAB PO BID, (Reported) Past Medical/Social/Family Hx Patient Social History Marrital Status: Tobacco Use?: No Smoking Status: Never a Smoker Use of E-Cig and/or Vaping dev: No Substance use?: No Alcohol Use?: Yes Additional alcohol type: ER REPORTS FAMILY STATES HE DRINKS WHISKEY Alcohol Frequency: Daily Pt stated abuse/neglect: No Immunizations Up To Date Influenza Vaccine Up-to-Date: Yes; Up-to-Date First/Initial COVID19 Vaccinat: yes Second COVID19 Vaccination Mazin: yes Tetanus Booster (TDap): Less Than 5 Years Date of Pneumonia Vaccine: Aug 02, 2011 Current Status Advance Directives: No Communicates: Verbally Primary Language: Peruvian Preferred Spoken Language: Peruvian Is interpretation needed?: No Implanted or Applied Medical D: Insulin pump Family Medical History Family Hx: 08/02/19--PERIPHERAL ANGIOGRAM--SMALL VESSEL DISEASE, NO INTERVENTION. 06/21/19--NORMAL COLONOSCOPY Review of Systems Constitutional: see HPI Focused Exam Height, Weight, BMI Height: 5'10.00" Weight: 187lbs. 2.0oz. 84.741297rz; 28.63 BMI Method:Estimated Exam Exam Patient acknowledged, consented, and participated in this virtual visit which was conducted using real time audio/video Vital Signs Date Time Temp Pulse Resp B/P (MAP) Pulse Ox O2 Delivery O2 Flow Rate FiO2 07/23/22 13:00 67 07/23/22 12:04 93 139/73 07/23/22 12:00 95 118/55 (76) 90 Room Air 07/23/22 08:08 95 Nasal Cannula 2.00 07/23/22 08:00 Nasal Cannula 3.00 07/23/22 07:34 36.3 93 20 139/73 (95) 94 Room Air 07/23/22 07:00 92 07/23/22 04:39 36.6 96 96 28 07/23/22 03:19 36.6 96 20 140/77 (98) 96 Nasal Cannula 2.00 07/23/22 02:47 100 Nasal Cannula 2.00 07/23/22 01:00 96 07/22/22 23:20 36.5 99 20 143/60 (87) 97 Nasal Cannula 2.00 07/22/22 22:40 100 Room Air 07/22/22 20:06 38.3 110 20 176/74 (108) 91 Nasal Cannula 3.00 07/22/22 20:00 Nasal Cannula 3.00 07/22/22 19:25 94 Nasal Cannula 2.00 07/22/22 19:00 92 07/22/22 15:58 38.1 104 20 177/79 (111) 95 Nasal Cannula 3.00 07/22/22 14:12 94 Nasal Cannula 2.00 I & O 07/23/22 07:00 Intake Total 250 ml Output Total 1550 ml Balance -1300 ml Height & Weight Height: 5'10.00" Weight: 187lbs. 2.0oz. 84.547337un; 28.63 BMI Method:Estimated General Appearance: No Apparent Distress, Chronically ill HEENT: PERRL/EOMI, Pharynx Normal Neck: Normal Inspection, Supple Respiratory: Lungs Clear, No Respiratory Distress Cardiovascular: Regular Rate, Rhythm, No Murmur Capillary Refill: Less Than 3 Seconds Gastrointestinal: normal bowel sounds, soft, no organomegaly, tenderness Extremity: Pedal Edema (b/l), Swelling (b/l LE; R. Arm ) Neurologic/Psychiatric: Other (did seem to acknowledge I was in the room but d id not answer any questions) Skin: Warm/Dry, Ecchymosis Results Lab Laboratory Tests 07/22/22 05:38 07/23/22 05:27 Assessment/Plan Assessment/Plan 1 ANDRE IVEY MD Jul 23, 2022 13:54
--- NOTE | 2022-07-23 13:58 | Speech Therapy Progress Note ---
Therapy Progress Note As the patient has transferred to a higher level of care, new ST orders will be necessary for evaluation and treatment. ZULAY CHAPARRO Jul 23, 2022 13:58
--- NOTE | 2022-07-23 13:58 | Progress Note - Hospitalist ---
Subjective HPI/CC On Admission Date Seen by Provider: Jul 23, 2022 Luis Alberto Wiseman is a 77yo male whom presented due to fall occurring 3 days ago and constant stabbing right sided pain. Pt was walking up the stairs and fell backwards and landed on his right side. Pt has associated painful breathing w/ deep inspiration. Movement/exertion aggravates pain on right side, and pain medication has helped alleviate pain. Pt states that he has fallen a lot more recently. Pt son at bedside stated pt has been experiencing dizziness and loss of balance for the past several months. Son states pt is typically sharp mentally, but feels that he is altered due to pain medication. At this time patient was oriented to person and year. Pt denied Fever, Chills, N/V/D, Abdominal Pain, Chest Pain, Headache. Subjective/Events-last exam Pt remains confused. This morning did seem to say "yes" appropriately a couple of time but throughout the day mentation worsened. Returned to room at request of RN as his agitation was worsening despite ativan being given. Spoke with son and he states pt has an agitated demeanor at baseline which only complaints this. Discussed indication for transfer to ICU for precedex to help with withdrawal symptoms. Objective Exam Vital Signs Vital Signs Date Time Temp Pulse Resp B/P (MAP) Pulse Ox O2 Delivery O2 Flow Rate FiO2 07/24/22 10:00 68 15 93/50 (64) 94 Room Air 07/24/22 08:00 36.2 07/24/22 06:43 0.00 07/23/22 04:39 28 Capillary Refill : Less Than 3 Seconds General Appearance: Chronically ill, Moderate Distress (appears uncomfortable) Cardiovascular: Regular Rate, Rhythm, No Murmur Gastrointestinal: Normal Bowel Sounds, Soft Neurologic/Psychiatric: Other (laying in bed, moaning) Results/Procedures Lab Laboratory Tests 07/24/22 04:16 07/24/22 04:21 Patient resulted labs reviewed. Imaging: Reviewed Imaging Films, Reviewed Imaging Report Assessment/Plan Assessment and Plan Assess & Plan/Chief Complaint Alcohol Withdrawal Daily alcohol use Encephalopathy reports regular alcohol use [facility] protocol Transfer to ICU for Precedex Continue IVF given poor oral intake Continue Thiamine R. Superior and Inferior Pubic Fracture R. 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
--- NOTE | 2022-07-23 16:25 | Diagnostic Imaging Report ---
INDICATION: Hypoxia COMPARISON: 03/04/2022 Heart size and pulmonary vascularity are at the upper limits of normal. There is no overt edema. No pneumothorax is seen. Rounded density projecting over the lower left hemithorax may be due to eventration of the diaphragm. There is no evidence of new infiltrate or adverse change elsewhere in the lungs. IMPRESSION: Mild cardiomegaly and borderline pulmonary venous congestion may be related to developing congestive heart failure or hypervolemia. Dictated by: Dictated on workstation # [id number]
[2022-07-23] MEDS: CATHETER FLUSH 10 ML SYR IV PRN (23:44)
[2022-07-24] MEDS: DexMEDEtomidine 250 ML DRIP 250 ML IV SCH (00:08)
[2022-07-24] MEDS: D5 1/2 NS 1000 ML IV SOLUTION 1,000 ML IV SCH ×3 (03:10→12:52)
[2022-07-24 05:00] LABS: BASOPHILS % (AUTO) 0 % (0-10); EOSINOPHILS # (AUTO) 0.2 10^3/uL (0.0-0.3); EOSINOPHILS % (AUTO) 2 % (0-10); HEMATOCRIT 26 % (40-54); LYMPHOCYTES # (AUTO) 0.8 10^3/uL (1.0-4.0); LYMPHOCYTES % (AUTO) 9 % (12-44); MEAN CORPUSCULAR HEMOGLOBIN 26 pg (25-34); MEAN CORPUSCULAR HGB CONC 31 g/dL (32-36); MEAN CORPUSCULAR VOLUME 83 fL (80-99); MONOCYTES # (AUTO) 1.3 10^3/uL (0.0-1.0); MONOCYTES % (AUTO) 14 % (0-12); NEUTROPHILS # (AUTO) 6.9 10^3/uL (1.8-7.8); NEUTROPHILS % (AUTO) 75 % (42-75); PLATELET COUNT 331 10^3/uL (130-400); WHITE BLOOD COUNT 9.3 10^3/uL (4.3-11.0)
[2022-07-24] MEDS: ENOXAPARIN 100 MG/1 ML (LOVENOX) SYR SC SCH ×2 (05:06→16:55)
[2022-07-24 05:18] LABS: CALCIUM 8.5 MG/DL (8.5-10.1); CREATININE SERUM 1.67 MG/DL (0.60-1.30); MAGNESIUM 2.2 MG/DL (1.6-2.4); POTASSIUM 4.2 MMOL/L (3.6-5.0)
[2022-07-24] MEDS: MAGNESIUM 1 GM/100 ML IVPB 100 ML IV SCH (05:20)
[2022-07-24] MEDS: POTASSIUM CL 10MEQ/50ML IVPB 50 ML IV SCH (05:20)
[2022-07-24] MEDS: KCL 20 MEQ TAB (K-DUR) PO SCH (05:21)
[2022-07-24] MEDS: POTASSIUM BICARB 20 MEQ (EFFER-K) TABLET PO SCH (05:21)
[2022-07-24] MEDS: SUCRALFATE 1 GM (CARAFATE) TAB PO SCH ×4 (05:21→20:50)
[2022-07-24] MEDS: inSUlin ASPART (NovoLOG) 1 UNIT/0.01 ML (CHARGE PER UNIT) SC SCH ×4 (05:29→20:46)
[2022-07-24] MEDS: meTOprolol 5 MG/5 ML (LOPRESSOR) VIAL IV SCH ×4 (05:30→23:46)
[2022-07-24] MEDS: MULTIVIT W/MINERALS TAB (THERAGRAN M) PO SCH (06:26)
--- NOTE | 2022-07-24 07:05 | Physical Therapy Progress Note ---
Therapy Progress Note PT will require new orders secondary to ICU transfer. SARAN COOK PT Jul 24, 2022 07:05
[2022-07-24] MEDS: fentaNYL INJ 100 MCG/2 ML AMP IVP PRN ×4 (08:16→20:10)
[2022-07-24] MEDS: LORazepam INJ 2 MG/ML (ATIVAN) VIAL IV PRN ×3 (08:16→19:00)
[2022-07-24] MEDS: cefTRIAXone IV/IM 1,000 MG in NS (IVPB) 50 ML IV SCH (08:17)
[2022-07-24] MEDS: predniSONE 5 MG TAB PO SCH (08:19)
--- NOTE | 2022-07-24 08:25 | Tele-ICU Progress Note ---
Subjective Date Seen by a Provider: Jul 24, 2022 Time Seen by a Provider: 08:25 Subjective/Events-last exam (Tele-ICU Physician , Progress Note ) Service provided via interactive audio and video telecommunications E-CARE system to a patient admitted to ICU bed in [facility]. Patient is seen today due to persistent need of ICU care Available chart/ vitals / labs / Images reviewed Video assessment done using teleICU camera, rest of exam as per RN Discussed with RN Events overnight : Afebrile hemodynamically stable Respiratory - I/O = Drips: Pressors- no Hospital course: 77 y/o maleadmitted 07/16 after fall pelvic and rib fracture 07/23 to ICU from floor with etoh withdrawal , on precedex 07/24- vital stable , on RA , still confused and mildly agitated today , moves all extremities , moaning, precedex gtt A/P ETOH abuse /withdrawal syndrome ( still confused and mildly agitated today , moves all extremities , moaning ) -No hallucinations. No seizures - monitor -Continue supportive care on CIWA protocol- cont benzo -started on precedex - will try to wean down -monitor vitals -follow lytes , cont thiamine Hypotension - new in ICU , seemds due to sedatives - RESOLVED - no need for stress dose of steroids ( on home prednisone R. 4th, 5th, 6th Lateral Rib Fracture - now with decreased Sao2 - / shallow breathing vs splinting = at risk for PNA - cxr without new infitrate Leukocytosis 07/23 - Cefepime started 07/23 am, cxr without new infitrate R. Superior and Inferior Pubic Fracture -Ortho consulted, recommends conservative management - pain control RICHARD on CKD -stable Rheumatoid Arthritis -on home Prednisone CAD, CHF - ECHO 2021 - EF 55% - RVSP 35 mm Hg Severe MR on ECHO 2021 - monitor IVF PAF - rate controlled, IN SINUS - on amio and metoprolol PO - NOT ABLE TO TAKE IT TODAY - on lovenox 100 bid DM -ISS PVD - plavix Lines : periph , (Central Line Necessity Reviewed) Parra: OG: Nutrition: po if mental staus better Analgesia: Anxiety/ delirium VTE Prophylaxis: blaze 100 bid Stress Ulcer Prophylaxis: Plans in collaboration with bedside consultants and IM MDs. Discussed with RN to reach out if any questions or concerns A total of 34 minutes of critical care time was devoted to this patient today, required to treat and/or prevent further deterioration of critical care condition ( as above ) . I am remotely monitoring this patient from another state. I am unable to do the bedside exam, and history/physical and pertinent information is taken from other notes in the computer and bedside staff. . Sepsis Event Evaluation Height, Weight, BMI Height: 5'10.00" Weight: 187lbs. 2.0oz. 84.031879zd; 28.63 BMI Method:Estimated Exam Exam Patient acknowledged, consented, and participated in this virtual visit which w as conducted using real time audio/video Vital Signs Date Time Temp Pulse Resp B/P (MAP) Pulse Ox O2 Delivery O2 Flow Rate FiO2 07/24/22 08:00 36.2 07/24/22 08:00 66 18 81/67 (75) 98 Room Air 07/24/22 07:00 72 07/24/22 07:00 68 21 94/63 (77) 99 07/24/22 06:43 100 Room Air 0.00 07/24/22 06:00 62 18 118/68 (83) 100 07/24/22 06:00 63 15 118/68 (85) 100 Room Air 07/24/22 05:00 66 24 113/69 (84) 99 07/24/22 04:00 Room Air 07/24/22 04:00 36.4 64 20 116/63 (84) 100 Room Air 07/24/22 03:10 100 Nasal Cannula 0.00 07/24/22 03:00 59 18 99/64 (76) 98 07/24/22 02:00 57 20 103/62 (76) 100 Room Air 07/24/22 02:00 59 19 103/62 (81) 97 07/24/22 01:00 60 20 102/87 (92) 100 07/24/22 01:00 60 07/24/22 00:00 58 22 89/50 (69) 96 Room Air 07/24/22 00:00 58 16 89/50 (63) 100 Room Air 07/23/22 23:48 Room Air 07/23/22 23:42 36.8 112/64 (80) 07/23/22 23:00 62 18 120/79 (96) 100 07/23/22 22:00 63 20 117/59 (84) 98 Room Air 07/23/22 21:47 95 Nasal Cannula 0.00 07/23/22 21:46 67 20 97 Room Air 07/23/22 21:00 68 20 130/76 (94) 99 Room Air 07/23/22 20:01 36.6 07/23/22 20:00 69 17 127/70 (91) 95 Room Air 07/23/22 19:25 36.5 22 07/23/22 19:25 94 Room Air 07/23/22 19:15 69 113/67 (84) 94 Room Air 07/23/22 19:00 69 115/67 (84) 94 07/23/22 19:00 70 07/23/22 18:00 69 110/64 (79) 93 Room Air 07/23/22 17:00 67 97/56 (70) 93 Room Air 07/23/22 16:04 69 110/64 07/23/22 16:02 99 Room Air 07/23/22 16:00 68 105/56 (72) 96 Room Air 07/23/22 15:52 36.2 07/23/22 15:51 36.2 07/23/22 15:00 68 94/61 (72) 94 Room Air 07/23/22 14:00 68 113/70 (84) 99 Room Air 07/23/22 13:00 66 83/44 (57) 92 Room Air 07/23/22 13:00 67 07/23/22 12:04 93 139/73 07/23/22 12:00 95 118/55 (76) 90 Room Air I & O 07/24/22 06:59 Intake Total 1550 ml Output Total 680 ml Balance 870 ml Height & Weight Height: 5'10.00" Weight: 187lbs. 2.0oz. 84.655922qu; 28.63 BMI Method:Estimated General Appearance: Chronically ill, Moderate Distress (appears uncomfortable) HEENT: PERRL/EOMI, Pharynx Normal Neck: Normal Inspection, Supple Respiratory: Lungs Clear, No Respiratory Distress Cardiovascular: Regular Rate, Rhythm, No Murmur Capillary Refill: Less Than 3 Seconds Gastrointestinal: normal bowel sounds, soft, no organomegaly, tenderness Extremity: Pedal Edema, Swelling Neurologic/Psychiatric: Other (laying in bed, moaning) Skin: Warm/Dry, Ecchymosis Results Lab Laboratory Tests 07/23/22 05:27 07/24/22 04:16 07/24/22 04:21 Assessment/Plan Assessment/Plan 1 ANDRE IVEY MD Jul 24, 2022 08:25
[2022-07-24] MEDS: THIAMINE INJECTION 100 MG in NS (IVPB) 50 ML IV SCH (09:28)
[2022-07-24 09:32] LABS: ABG BASE EXCESS 1.4 MMOL/L (-2.5-2.5); ABG OXYGEN SATURATION 91 % (94-100); ABG PCO2 34 MMHG (35-45); ABG PH 7.47 (7.37-7.43); ABG PO2 65 MMHG (79-93); ABG TCO2 25.8 MMOL/L (21.0-31.0)
[2022-07-24 09:34] LABS: ALLENS TEST POSITIVE; INSPIRED O2 3%; PATIENT TEMP 37.1; VENTILATOR NO
[2022-07-24] MEDS: DOCUSATE SODIUM 100 MG (COLACE) CAP PO SCH ×2 (09:45→20:50)
[2022-07-24] MEDS: AMIODARONE 200 MG (CORDARONE) TAB PO SCH (09:45)
[2022-07-24] MEDS: FOLIC ACID 1 MG TAB PO SCH (09:45)
[2022-07-24] MEDS: PANTOPRAZOLE 40 MG (PROTONIX) TAB PO SCH (09:45)
[2022-07-24] MEDS: CLOPIDOGREL 75 MG (PLAVIX) TABLET PO SCH (09:45)
[2022-07-24] MEDS: SACUBITRIL/VALSARTAN 24/26 MG (ENTRESTO) TABLET PO SCH ×2 (09:45→20:50)
[2022-07-24] MEDS: SENNOSIDES 8.6 MG (SENOKOT) TAB PO SCH ×2 (09:46→20:51)
--- NOTE | 2022-07-24 10:22 | Diagnostic Imaging Report ---
EXAMINATION: CT head without contrast. TECHNIQUE: Multiple contiguous axial images were obtained through the brain without the use of intravenous contrast. All CT scans use one or more of the following dose optimizing techniques: automated exposure control, MA and/or KvP adjustment based on patient size and exam type or iterative reconstruction. HISTORY: Fall. Confusion. COMPARISON: 07/16/2022. FINDINGS: No large acute territorial ischemia, mass, or hemorrhage. No midline shift or mass effect. Decreased attenuation is seen in the periventricular and subcortical white matter. The ventricles and cortical sulci are prominent. The basilar cisterns are patent and unremarkable. The orbits are normal. Paranasal sinuses are normal. Mastoid air cells are clear. No soft tissue abnormality is seen. No osseus lesions or fractures are seen. IMPRESSION: 1. No large acute territorial ischemia, mass, or hemorrhage. 2. Chronic microvascular disease. 3. Generalized parenchymal volume loss. Dictated by: Dictated on workstation # [id number]
--- NOTE | 2022-07-24 12:03 | Progress Note - Hospitalist ---
Subjective HPI/CC On Admission Luis Alberto Wiseman is a 77yo male whom presented due to fall occurring 3 days ago and constant stabbing right sided pain. Pt was walking up the stairs and fell backwards and landed on his right side. Pt has associated painful breathing w/ deep inspiration. Movement/exertion aggravates pain on right side, and pain medication has helped alleviate pain. Pt states that he has fallen a lot more recently. Pt son at bedside stated pt has been experiencing dizziness and loss of balance for the past several months. Son states pt is typically sharp mentally, but feels that he is altered due to pain medication. At this time patient was oriented to person and year. Pt denied Fever, Chills, N/V/D, Abdominal Pain, Chest Pain, Headache. Subjective/Events-last exam Pt remains very confused. Seemed to be a little better this morning per nursing notes but then agitated again. Returned to room to discuss with son. Son states they talked to the neighbor who helped him when he fell and the neighbor thinks now he may have hit his head. CT head ordered. Objective Exam Vital Signs Vital Signs Date Time Temp Pulse Resp B/P (MAP) Pulse Ox O2 Delivery O2 Flow Rate FiO2 07/24/22 10:00 68 15 93/50 (64) 94 Room Air 07/24/22 08:00 36.2 07/24/22 06:43 0.00 07/23/22 04:39 28 Capillary Refill : Less Than 3 Seconds General Appearance: No Apparent Distress, WD/WN Respiratory: Lungs Clear, No Respiratory Distress Cardiovascular: Regular Rate, Rhythm, No Murmur Neurologic/Psychiatric: Other Results/Procedures Lab Laboratory Tests 07/24/22 04:16 07/24/22 04:21 Patient resulted labs reviewed. Imaging: Reviewed Imaging Films, Reviewed Imaging Report Assessment/Plan Assessment and Plan Assess & Plan/Chief Complaint Alcohol Withdrawal Daily alcohol use Encephalopathy reports regular alcohol use CIWA protocol, Precedex ordered Continue IVF Continue Thiamine CT head ordered, negative for ICH or stroke R. Superior and Inferior Pubic Fracture R. 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
[2022-07-24] MEDS ORDERED: HYPOCHLOROUS ACID/NaCl (VASHE) 250 ML IR PRN (12:45)
[2022-07-24] MEDS: ACETAMINOPHEN 650 MG SUPP (TYLENOL) PR PRN (18:10)
[2022-07-24] MEDS ORDERED: NS IV 1000 ML 1,000 ML IV SCH (18:15)
[2022-07-24] MEDS: ZIPRASIDONE 20 MG INJ (GEODON) VIAL IM PRN (19:31)
[2022-07-24] MEDS: WATER (STERILE) FOR INJ 10 ML BTL INJ SCH (19:33)
[2022-07-24] MEDS: CATHETER FLUSH 10 ML SYR IV PRN (23:46)
[2022-07-25] MEDS: D5 1/2 NS 1000 ML IV SOLUTION 1,000 ML IV SCH ×3 (00:03→20:59)
[2022-07-25] MEDS: DexMEDEtomidine 250 ML DRIP 250 ML IV SCH ×2 (01:03→22:56)
[2022-07-25 03:57] LABS: BASOPHILS % (AUTO) 0 % (0-10); EOSINOPHILS # (AUTO) 0.1 10^3/uL (0.0-0.3); EOSINOPHILS % (AUTO) 1 % (0-10); HEMATOCRIT 26 % (40-54); HEMOGLOBIN 7.7 g/dL (13.3-17.7); LYMPHOCYTES # (AUTO) 0.7 10^3/uL (1.0-4.0); LYMPHOCYTES % (AUTO) 6 % (12-44); MEAN CORPUSCULAR HEMOGLOBIN 25 pg (25-34); MEAN CORPUSCULAR HGB CONC 30 g/dL (32-36); MEAN CORPUSCULAR VOLUME 84 fL (80-99); MEAN PLATELET VOLUME 10.5 fL (9.0-12.2); MONOCYTES # (AUTO) 1.4 10^3/uL (0.0-1.0); MONOCYTES % (AUTO) 12 % (0-12); NEUTROPHILS # (AUTO) 8.7 10^3/uL (1.8-7.8); NEUTROPHILS % (AUTO) 79 % (42-75); PLATELET COUNT 324 10^3/uL (130-400)
[2022-07-25 04:05] LABS: POTASSIUM 3.8 MMOL/L (3.6-5.0)
[2022-07-25 04:06] LABS: CALCIUM 8.3 MG/DL (8.5-10.1)
[2022-07-25 04:11] LABS: CREATININE SERUM 1.45 MG/DL (0.60-1.30)
[2022-07-25 04:13] LABS: MAGNESIUM 1.9 MG/DL (1.6-2.4)
[2022-07-25] MEDS: NS IV 500 ML 500 ML IV PRN (04:29)
[2022-07-25] MEDS: ENOXAPARIN 100 MG/1 ML (LOVENOX) SYR SC SCH (04:35)
[2022-07-25] MEDS: POTASSIUM CL 10MEQ/50ML IVPB 50 ML IV SCH ×3 (04:48→05:47)
[2022-07-25] MEDS: MAGNESIUM 1 GM/100 ML IVPB 100 ML IV SCH ×3 (04:52→05:51)
[2022-07-25] MEDS: KCL 20 MEQ TAB (K-DUR) PO SCH (05:17)
[2022-07-25] MEDS: POTASSIUM BICARB 20 MEQ (EFFER-K) TABLET PO SCH (05:17)
[2022-07-25] MEDS: SUCRALFATE 1 GM (CARAFATE) TAB PO SCH ×4 (05:18→20:55)
[2022-07-25] MEDS: inSUlin ASPART (NovoLOG) 1 UNIT/0.01 ML (CHARGE PER UNIT) SC SCH ×4 (05:23→20:58)
[2022-07-25] MEDS: meTOprolol 5 MG/5 ML (LOPRESSOR) VIAL IV SCH ×4 (05:48→23:21)
[2022-07-25] MEDS: MULTIVIT W/MINERALS TAB (THERAGRAN M) PO SCH (05:51)
[2022-07-25] MEDS: cefTRIAXone IV/IM 1,000 MG in NS (IVPB) 50 ML IV SCH (07:48)
[2022-07-25] MEDS: predniSONE 5 MG TAB PO SCH (08:38)
--- NOTE | 2022-07-25 08:50 | Tele-ICU Progress Note ---
Subjective Date Seen by a Provider: Jul 25, 2022 Subjective/Events-last exam This virtual visit was conducted using real time audio/video. Thank you for asking us to see this patient for critical care services due to rib, pelvic #s and alcohol withdrawal. Recent events: Precedex increased overnight. PE: VSS. O2 sat 100% on room air. HEENT: No obvious masses, adenopathy or JVD. Chest: coarse on auscultation. CV: RRR S1 S2 No murmur or added sounds. Abd: Non-tender. Bowel sounds Y. : Unremarkable. Parra Y. CAR CHANGER/psychiatric: Grossly intact. No obvious focal findings. Extremities: No ankle edema. Capillary refill < 3 seconds. Skin: unremarkable. Results: Elevated BUN 28, Creat 1.45, BG 153. Decreased Hb 7.7. AB.47/34/65. CXR: Clear. Available chart/ vitals / labs / images reviewed. Video assessment done using teleICU camera, rest of exam as per RN. A/P: Monitor for increasing oxygenation needs and/or need for intubation due to rib #s. Critical Care: critically ill patient. Cont.CIWA, Prec., abx, Nikko., amiod., metop., plavix, SSI, Levemir, statin, pred., entresto, PPI. Discussed with RN Mandeep. Asked RN to reach out to eICU if any questions or concerns later. Time spent with patient/coordination of care with other health professionals (mins): 25 Sepsis Event Evaluation Height, Weight, BMI Height: 5'10.00" Weight: 187lbs. 2.0oz. 84.349099tg; 28.63 BMI Method:Estimated Exam Exam Patient acknowledged, consented, and participated in this virtual visit which was conducted using real time audio/video Vital Signs Date Time Temp Pulse Resp B/P (MAP) Pulse Ox O2 Delivery O2 Flow Rate FiO2 07/25/22 08:00 64 15 124/72 (91) 100 Room Air 07/25/22 07:59 35.9 07/25/22 07:00 60 22 106/60 (75) 97 07/25/22 07:00 62 07/25/22 06:00 59 24 114/62 (84) 100 07/25/22 05:00 69 18 130/68 (87) 100 07/25/22 04:02 Room Air 07/25/22 04:00 67 19 125/71 (89) 100 Room Air 07/25/22 04:00 36.4 07/25/22 03:06 75 24 128/89 (97) 100 07/25/22 03:00 77 18 100 07/25/22 02:00 70 24 128/67 (92) 100 07/25/22 01:00 68 07/25/22 01:00 67 20 111/54 (74) 100 07/25/22 00:00 36.7 70 20 126/66 (85) 100 Room Air 07/24/22 23:52 Room Air 07/24/22 23:00 71 20 124/65 (84) 98 07/24/22 22:00 81 24 143/68 (93) 100 07/24/22 21:00 91 28 149/80 (103) 90 Room Air 07/24/22 21:00 95 Room Air 07/24/22 20:00 91 36 139/89 (96) 98 07/24/22 20:00 37.8 07/24/22 19:20 Room Air 07/24/22 19:15 87 32 122/72 (87) 94 Room Air 07/24/22 19:00 90 07/24/22 19:00 85 30 122/86 (98) 100 07/24/22 18:44 93 Room Air 07/24/22 18:00 73 10 104/89 (93) 97 Room Air 07/24/22 17:00 76 22 121/84 (96) 97 Room Air 07/24/22 16:22 36.2 07/24/22 16:02 97 Room Air 07/24/22 16:00 77 85/56 (72) 99 Room Air 07/24/22 15:00 73 22 118/60 (85) 97 Room Air 07/24/22 14:14 97 Room Air 0.00 07/24/22 14:00 70 19 100/63 (83) 96 Room Air 07/24/22 13:00 69 24 112/67 (85) 97 Room Air 07/24/22 12:43 73 07/24/22 12:00 98 Room Air 07/24/22 12:00 74 22 120/63 (86) 99 Room Air 07/24/22 12:00 36.8 07/24/22 11:00 74 36 89/74 (78) 91 Room Air 07/24/22 10:00 68 15 93/50 (64) 94 Room Air 07/24/22 09:00 71 29 91/58 (68) 96 Room Air I & O 07/25/22 06:59 Intake Total 2400 ml Output Total 870 ml Balance 1530 ml Height & Weight Height: 5'10.00" Weight: 187lbs. 2.0oz. 84.362990bc; 28.63 BMI Method:Estimated General Appearance: Chronically ill, Moderate Distress (appears uncomfortable) HEENT: PERRL/EOMI, Pharynx Normal Neck: Normal Inspection, Supple Respiratory: Lungs Clear, No Respiratory Distress Cardiovascular: Regular Rate, Rhythm, No Murmur Capillary Refill: Less Than 3 Seconds Gastrointestinal: normal bowel sounds, soft, no organomegaly, tenderness Extremity: Pedal Edema, Swelling Neurologic/Psychiatric: Other (laying in bed, moaning) Skin: Warm/Dry, Ecchymosis Results Lab Laboratory Tests 07/24/22 04:16 07/24/22 04:21 07/25/22 03:43 Assessment/Plan Assessment/Plan See free text. Critical Care: Critically Ill Patient FRANCISCO LYNCH MD Jul 25, 2022 08:50
[2022-07-25] MEDS: DOCUSATE SODIUM 100 MG (COLACE) CAP PO SCH ×2 (09:04→20:56)
[2022-07-25] MEDS: SENNOSIDES 8.6 MG (SENOKOT) TAB PO SCH ×2 (09:05→20:57)
[2022-07-25] MEDS: AMIODARONE 200 MG (CORDARONE) TAB PO SCH (09:05)
[2022-07-25] MEDS: PANTOPRAZOLE 40 MG (PROTONIX) TAB PO SCH (09:05)
[2022-07-25] MEDS: FOLIC ACID 1 MG TAB PO SCH (09:05)
[2022-07-25] MEDS: SACUBITRIL/VALSARTAN 24/26 MG (ENTRESTO) TABLET PO SCH ×2 (09:05→20:57)
[2022-07-25] MEDS: CLOPIDOGREL 75 MG (PLAVIX) TABLET PO SCH (09:05)
[2022-07-25] MEDS: THIAMINE INJECTION 100 MG in NS (IVPB) 50 ML IV SCH (09:08)
--- NOTE | 2022-07-25 11:17 | Progress Note - Hospitalist ---
Subjective HPI/CC On Admission Date Seen by Provider: Jul 25, 2022 Luis Alberto Wiseman is a 77yo male whom presented due to fall occurring 3 days ago and constant stabbing right sided pain. Pt was walking up the stairs and fell backwards and landed on his right side. Pt has associated painful breathing w/ deep inspiration. Movement/exertion aggravates pain on right side, and pain medication has helped alleviate pain. Pt states that he has fallen a lot more recently. Pt son at bedside stated pt has been experiencing dizziness and loss of balance for the past several months. Son states pt is typically sharp mentally, but feels that he is altered due to pain medication. At this time patient was oriented to person and year. Pt denied Fever, Chills, N/V/D, Abdominal Pain, Chest Pain, Headache. Subjective/Events-last exam Pt lying in bed. MOre calm today. Not writhing or moaning but not really responsive. Daughter and son at bedside. Updated daughter of the happenings over the week. Returned to discuss with son about fall. He was found down by neighbor in the yard but only down about 5 minutes. When I returned son states that he woke a little and said a few words about getting suction for his mouth. Objective Exam Vital Signs Vital Signs Date Time Temp Pulse Resp B/P (MAP) Pulse Ox O2 Delivery O2 Flow Rate FiO2 07/25/22 10:00 71 144/76 (98) 100 Room Air 07/25/22 08:00 15 07/25/22 07:59 35.9 07/24/22 14:14 0.00 07/23/22 04:39 28 Capillary Refill : Less Than 3 Seconds General Appearance: Chronically ill Respiratory: Lungs Clear, No Respiratory Distress Cardiovascular: Regular Rate, Rhythm, No Murmur Neurologic/Psychiatric: Other (sedated, did groan with I attempted to move his right arm but did not speak) Results/Procedures Lab Laboratory Tests 07/25/22 03:43 Patient resulted labs reviewed. Imaging: Reviewed Imaging Films, Reviewed Imaging Report Assessment/Plan Assessment and Plan Assess & Plan/Chief Complaint Metabolic encephalopathy Delirium Alcohol Withdrawal CIWA protocol, Precedex ordered- wean as able Continue IVF Continue Thiamine CT head ordered, negative for ICH or stroke Will add TSH and Tick panel Will need to address nutrition soon but due to agitation family hoping to avoid NGT as he is quite bothered by all the tubes and cords as is R. Superior and Inferior Pubic Fracture R. 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
[2022-07-25] MEDS: fentaNYL INJ 100 MCG/2 ML AMP IVP PRN ×2 (13:11→15:42)
[2022-07-25] MEDS: ENOXAPARIN 80 MG/0.8 ML (LOVENOX) SYR SC SCH (18:21)
[2022-07-25] MEDS: ZIPRASIDONE 20 MG INJ (GEODON) VIAL IM PRN (19:54)
[2022-07-25] MEDS: WATER (STERILE) FOR INJ 10 ML BTL INJ SCH (19:54)
[2022-07-26 04:22] LABS: BASOPHILS % (AUTO) 0 % (0-10); EOSINOPHILS # (AUTO) 0.1 10^3/uL (0.0-0.3); EOSINOPHILS % (AUTO) 1 % (0-10); HEMATOCRIT 25 % (40-54); HEMOGLOBIN 7.5 g/dL (13.3-17.7); LYMPHOCYTES # (AUTO) 0.7 10^3/uL (1.0-4.0); LYMPHOCYTES % (AUTO) 5 % (12-44); MEAN CORPUSCULAR HEMOGLOBIN 25 pg (25-34); MEAN CORPUSCULAR HGB CONC 30 g/dL (32-36); MEAN CORPUSCULAR VOLUME 84 fL (80-99); MEAN PLATELET VOLUME 10.7 fL (9.0-12.2); MONOCYTES # (AUTO) 1.6 10^3/uL (0.0-1.0); MONOCYTES % (AUTO) 12 % (0-12); NEUTROPHILS % (AUTO) 82 % (42-75); PLATELET COUNT 334 10^3/uL (130-400); WHITE BLOOD COUNT 13.5 10^3/uL (4.3-11.0)
[2022-07-26 04:31] LABS: POTASSIUM 3.9 MMOL/L (3.6-5.0)
[2022-07-26 04:33] LABS: CALCIUM 8.3 MG/DL (8.5-10.1)
[2022-07-26 04:37] LABS: CREATININE SERUM 1.3 MG/DL (0.60-1.30)
[2022-07-26 04:39] LABS: MAGNESIUM 2.1 MG/DL (1.6-2.4)
[2022-07-26] MEDS: POTASSIUM CL 10MEQ/50ML IVPB 50 ML IV SCH ×3 (04:56→05:57)
[2022-07-26] MEDS: KCL 20 MEQ TAB (K-DUR) PO SCH (04:58)
[2022-07-26] MEDS: MAGNESIUM 1 GM/100 ML IVPB 100 ML IV SCH (04:58)
[2022-07-26] MEDS: POTASSIUM BICARB 20 MEQ (EFFER-K) TABLET PO SCH (04:58)
[2022-07-26] MEDS: inSUlin ASPART (NovoLOG) 1 UNIT/0.01 ML (CHARGE PER UNIT) SC SCH ×4 (05:40→22:00)
[2022-07-26] MEDS: ENOXAPARIN 80 MG/0.8 ML (LOVENOX) SYR SC SCH ×2 (05:40→18:12)
[2022-07-26] MEDS: SUCRALFATE 1 GM (CARAFATE) TAB PO SCH ×4 (05:41→21:59)
[2022-07-26] MEDS: meTOprolol 5 MG/5 ML (LOPRESSOR) VIAL IV SCH ×3 (05:57→18:12)
[2022-07-26] MEDS: D5 1/2 NS 1000 ML IV SOLUTION 1,000 ML IV SCH ×2 (06:58→17:28)
[2022-07-26] MEDS: MULTIVIT W/MINERALS TAB (THERAGRAN M) PO SCH (06:58)
[2022-07-26] MEDS: cefTRIAXone IV/IM 1,000 MG in NS (IVPB) 50 ML IV SCH (07:55)
[2022-07-26] MEDS: DOCUSATE SODIUM 100 MG (COLACE) CAP PO SCH ×2 (07:55→21:59)
[2022-07-26] MEDS: AMIODARONE 200 MG (CORDARONE) TAB PO SCH (07:55)
[2022-07-26] MEDS: SENNOSIDES 8.6 MG (SENOKOT) TAB PO SCH ×2 (07:57→22:00)
[2022-07-26] MEDS: predniSONE 5 MG TAB PO SCH (07:57)
[2022-07-26] MEDS: CLOPIDOGREL 75 MG (PLAVIX) TABLET PO SCH (07:57)
[2022-07-26] MEDS: PANTOPRAZOLE 40 MG (PROTONIX) TAB PO SCH (07:57)
[2022-07-26] MEDS: FOLIC ACID 1 MG TAB PO SCH (07:57)
[2022-07-26] MEDS: SACUBITRIL/VALSARTAN 24/26 MG (ENTRESTO) TABLET PO SCH ×2 (08:24→22:00)
--- NOTE | 2022-07-26 09:17 | Tele-ICU Progress Note ---
Subjective Date Seen by a Provider: Jul 26, 2022 Subjective/Events-last exam This virtual visit was conducted using real time audio/video. Thank you for asking us to see this patient for critical care services due to rib, pelvic #s and alcohol withdrawal. Recent events: Precedex decreased overnight. PE: VSS. O2 sat 100% on 2 LPM NC. HEENT: No obvious masses, adenopathy or JVD. Chest: clearer on auscultation. CV: RRR S1 S2 No murmur or added sounds. Abd: Non-tender. Bowel sounds Y. : Unremarkable. Parra Y. EQUIPMENT WORKER/psychiatric: Grossly intact. No obvious focal findings. Extremities: No ankle edema. Capillary refill < 3 seconds. Skin: unremarkable. Results: Elevated BUN 21, BG 182. Decreased Hb 7.5. AB.47/34/65. CXR: Clear. Available chart/ vitals / labs / images reviewed. Video assessment done using teleICU camera, rest of exam as per RN. A/P: Monitor for increasing oxygenation needs and/or need for intubation due to rib #s. Critical Care: critically ill patient. Cont.CIWA, Prec., abx, Nikko., amiod., metop., plavix, SSI, Levemir, statin, pred., entresto, PPI, HCTZ. consider D/C ing Carafate Discussed with RN BYRON. Asked RN to reach out to eICU if any questions or concerns later. Time spent with patient/coordination of care with other health professionals (mins): 20 Sepsis Event Evaluation Height, Weight, BMI Height: 5'10.00" Weight: 187lbs. 2.0oz. 84.331310vr; 28.63 BMI Method:Estimated Exam Exam Patient acknowledged, consented, and participated in this virtual visit which was conducted using real time audio/video Vital Signs Date Time Temp Pulse Resp B/P (MAP) Pulse Ox O2 Delivery O2 Flow Rate FiO2 07/26/22 08:00 36.0 07/26/22 08:00 65 20 122/96 (102) 100 Room Air 07/26/22 08:00 Room Air 07/26/22 07:08 100 Room Air 07/26/22 07:00 57 14 108/51 (66) 100 Room Air 07/26/22 07:00 57 07/26/22 06:00 61 17 118/65 (82) 100 07/26/22 05:00 59 20 114/65 (89) 100 07/26/22 04:00 36.4 62 18 142/67 (91) 100 Room Air 07/26/22 03:45 Room Air 07/26/22 03:05 100 Room Air 07/26/22 03:00 58 22 117/74 (92) 100 07/26/22 02:00 62 22 122/74 (94) 100 07/26/22 01:00 66 20 114/65 (86) 100 07/26/22 01:00 65 07/26/22 00:00 36.8 62 22 105/59 (74) 100 Room Air 07/25/22 23:32 Room Air 07/25/22 23:00 65 20 97/58 (73) 96 07/25/22 22:00 74 28 123/67 (101) 100 07/25/22 21:00 74 28 100/58 (74) 97 07/25/22 20:00 76 24 106/69 (80) 100 Room Air 07/25/22 19:30 37.0 07/25/22 19:30 Room Air 07/25/22 19:00 75 26 111/60 (73) 100 07/25/22 19:00 75 07/25/22 18:00 82 127/70 (99) 100 Room Air 07/25/22 17:00 89 123/63 (90) 100 Room Air 07/25/22 16:00 100 Room Air 07/25/22 16:00 100 100 Room Air 07/25/22 15:00 88 18 141/67 (102) 100 Room Air 07/25/22 14:00 87 23 136/76 (99) 99 Room Air 07/25/22 13:00 84 28 129/82 (85) 100 Room Air 07/25/22 12:47 78 07/25/22 12:00 100 Room Air 07/25/22 12:00 70 24 122/68 (105) 100 Room Air 07/25/22 11:28 35.9 07/25/22 11:00 74 22 140/80 (94) 100 Room Air 07/25/22 10:00 71 144/76 (98) 100 Room Air I & O 07/26/22 07:00 Intake Total 2350 ml Output Total 920 ml Balance 1430 ml Height & Weight Height: 5'10.00" Weight: 187lbs. 2.0oz. 84.885304fe; 28.63 BMI Method:Estimated General Appearance: Chronically ill HEENT: PERRL/EOMI, Pharynx Normal Neck: Normal Inspection, Supple Respiratory: Lungs Clear, No Respiratory Distress Cardiovascular: Regular Rate, Rhythm, No Murmur Capillary Refill: Less Than 3 Seconds Gastrointestinal: normal bowel sounds, soft, no organomegaly, tenderness Extremity: Pedal Edema, Swelling Neurologic/Psychiatric: Other (sedated, did groan with I attempted to move his right arm but did not speak) Skin: Warm/Dry, Ecchymosis Results Lab Laboratory Tests 07/25/22 03:43 07/26/22 03:59 Assessment/Plan Assessment/Plan See free text. Critical Care: Critically Ill Patient FRANCISCO LYNCH MD Jul 26, 2022 09:17
[2022-07-26] MEDS: THIAMINE INJECTION 100 MG in NS (IVPB) 50 ML IV SCH (09:20)
[2022-07-26] MEDS: ACETAMINOPHEN 650 MG SUPP (TYLENOL) PR PRN ×3 (09:45→17:39)
--- NOTE | 2022-07-26 10:01 | Progress Note - Hospitalist ---
Subjective HPI/CC On Admission Date Seen by Provider: Jul 26, 2022 Luis Alberto Wiseman is a 77yo male whom presented due to fall occurring 3 days ago and constant stabbing right sided pain. Pt was walking up the stairs and fell backwards and landed on his right side. Pt has associated painful breathing w/ deep inspiration. Movement/exertion aggravates pain on right side, and pain medication has helped alleviate pain. Pt states that he has fallen a lot more recently. Pt son at bedside stated pt has been experiencing dizziness and loss of balance for the past several months. Son states pt is typically sharp mentally, but feels that he is altered due to pain medication. At this time patient was oriented to person and year. Pt denied Fever, Chills, N/V/D, Abdominal Pain, Chest Pain, Headache. Subjective/Events-last exam Pt remains drowsy and confused. Daughter, son, and at bedside. He was off precedex for a few hours yesterday and did well. Was able to speak a little yesterday but not follow commands. Back on Precedex overnight though and coming down on dose now. Did speak to the nurse this AM during oral care stating he didn't want it. Family states he sounded more like himself then but now back to sleepy. Objective Exam Vital Signs Vital Signs Date Time Temp Pulse Resp B/P (MAP) Pulse Ox O2 Delivery O2 Flow Rate FiO2 07/26/22 08:00 36.0 07/26/22 08:00 65 20 122/96 (102) 100 Room Air 07/24/22 14:14 0.00 07/23/22 04:39 28 Capillary Refill : Less Than 3 Seconds General Appearance: Chronically ill, Other (resting) Respiratory: Lungs Clear, No Respiratory Distress Cardiovascular: Regular Rate, Rhythm, No Murmur Gastrointestinal: Normal Bowel Sounds, Soft Extremity: Other (right arm edema and erythema improving) Neurologic/Psychiatric: Other (sleeping soundly, groaned when arm moved) Results/Procedures Lab Laboratory Tests 07/26/22 03:59 Patient resulted labs reviewed. Imaging: Reviewed Imaging Films, Reviewed Imaging Report Assessment/Plan Assessment and Plan Assess & Plan/Chief Complaint Metabolic encephalopathy Delirium Alcohol Withdrawal CIWA protocol, Precedex to be weaned as able Continue IVF Continue Thiamine CT head ordered, negative for ICH or stroke TSH normal Tick panel pending Will need to address nutrition soon but due to agitation family hoping to avoid NGT as he is quite bothered by all the tubes and cords as is R. Superior and Inferior Pubic Fracture R. 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
[2022-07-26] MEDS: DexMEDEtomidine 250 ML DRIP 250 ML IV SCH (21:43)
[2022-07-27] MEDS: meTOprolol 5 MG/5 ML (LOPRESSOR) VIAL IV SCH ×4 (01:10→17:46)
[2022-07-27] MEDS: D5 1/2 NS 1000 ML IV SOLUTION 1,000 ML IV SCH ×2 (03:36→14:54)
[2022-07-27 04:23] LABS: BASOPHILS % (AUTO) 0 % (0-10); EOSINOPHILS # (AUTO) 0.1 10^3/uL (0.0-0.3); EOSINOPHILS % (AUTO) 1 % (0-10); HEMATOCRIT 24 % (40-54); HEMOGLOBIN 7.2 g/dL (13.3-17.7); LYMPHOCYTES # (AUTO) 0.7 10^3/uL (1.0-4.0); LYMPHOCYTES % (AUTO) 5 % (12-44); MEAN CORPUSCULAR HEMOGLOBIN 25 pg (25-34); MEAN CORPUSCULAR HGB CONC 30 g/dL (32-36); MEAN CORPUSCULAR VOLUME 84 fL (80-99); MEAN PLATELET VOLUME 11.1 fL (9.0-12.2); MONOCYTES # (AUTO) 1.3 10^3/uL (0.0-1.0); MONOCYTES % (AUTO) 9 % (0-12); NEUTROPHILS # (AUTO) 11.7 10^3/uL (1.8-7.8); NEUTROPHILS % (AUTO) 84 % (42-75); PLATELET COUNT 356 10^3/uL (130-400)
[2022-07-27 04:41] LABS: CREATININE SERUM 1.25 MG/DL (0.60-1.30); MAGNESIUM 1.6 MG/DL (1.6-2.4); POTASSIUM 3.8 MMOL/L (3.6-5.0)
[2022-07-27] MEDS: MAGNESIUM 1 GM/100 ML IVPB 100 ML IV SCH ×4 (05:09→07:28)
[2022-07-27] MEDS: KCL 20 MEQ TAB (K-DUR) PO SCH (05:09)
[2022-07-27] MEDS: SUCRALFATE 1 GM (CARAFATE) TAB PO SCH ×4 (05:09→21:16)
[2022-07-27] MEDS: POTASSIUM BICARB 20 MEQ (EFFER-K) TABLET PO SCH (05:09)
[2022-07-27] MEDS: POTASSIUM CL 10MEQ/50ML IVPB 50 ML IV SCH ×3 (05:10→06:22)
[2022-07-27] MEDS: inSUlin ASPART (NovoLOG) 1 UNIT/0.01 ML (CHARGE PER UNIT) SC SCH ×4 (05:10→21:16)
[2022-07-27] MEDS: MULTIVIT W/MINERALS TAB (THERAGRAN M) PO SCH (05:11)
[2022-07-27] MEDS ORDERED: MAGNESIUM 1 GM/100 ML IVPB 400 ML IV ONE (05:17)
[2022-07-27] MEDS ORDERED: POTASSIUM CL 10MEQ/50ML IVPB 100 ML IV ONE (05:18)
[2022-07-27] MEDS: ENOXAPARIN 80 MG/0.8 ML (LOVENOX) SYR SC SCH ×2 (05:22→17:46)
--- NOTE | 2022-07-27 07:09 | Physical Therapy Progress Note ---
Therapy Progress Note PT will require new orders secondary to ICU transfer. SARAN COOK PT Jul 27, 2022 07:09
[2022-07-27] MEDS: THIAMINE INJECTION 100 MG in NS (IVPB) 50 ML IV SCH (08:23)
[2022-07-27] MEDS: cefTRIAXone IV/IM 1,000 MG in NS (IVPB) 50 ML IV SCH (08:23)
[2022-07-27] MEDS: ACETAMINOPHEN 650 MG SUPP (TYLENOL) PR PRN (09:00)
[2022-07-27] MEDS ORDERED: DEXTROSE 50% 50 ML (IMS) SYR ONE (10:42)
--- NOTE | 2022-07-27 10:42 | Tele-ICU Progress Note ---
Subjective Date Seen by a Provider: Jul 27, 2022 Time Seen by a Provider: 10:41 Subjective/Events-last exam (Tele-ICU Physician , Progress Note ) Service provided via interactive audio and video telecommunications E-CARE system to a patient admitted to ICU bed in [facility]. Patient is seen today due to persistent need of ICU care Available chart/ vitals / labs / Images reviewed Video assessment done using teleICU camera, rest of exam as per RN Discussed with RN Events overnight : Afebrile hemodynamically stable Respiratory - ra I/O = ++ Drips: d5 1/2 ns 100cc/h Pressors- no Hospital course: 77 y/o maleadmitted 07/16 after fall pelvic and rib fracture 07/23 to ICU from floor with etoh withdrawal , on precedex 07/24- vital stable , on RA , still confused and mildly agitated today , moves all extremities , moaning, precedex gtt 07/26- off precedex , some ?hallucinations 07/26 evening 07/27 - precedex 0.2 - STOPPED , speech eval A/P ETOH abuse /withdrawal syndrome ( still confused and mildly agitated today , moves all extremities , moaning ) -some ?hallucinations 07/26 evening , . No seizures - monitor -Continue supportive care on CIWA protocol- cont benzo PO today id can swallow -07/27 - precedex 0.2 - STOPPED -follow lytes , cont thiamine R. 4th, 5th, 6th Lateral Rib Fracture - now with decreased Sao2 - / shallow breathing vs splinting = at risk for PNA - cxr without new infitrate Leukocytosis 07/23 - Cefepime started 07/23 am, cxr without new infitrate R. 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 Discussed with RN to reach out if any questions or concerns A total of 25 minutes of critical care time was devoted to this patient today, required to treat and/or prevent further deterioration of critical care condition ( as above ) . I am remotely monitoring this patient from another state. I am unable to do the bedside exam, and history/physical and pertinent information is taken from other notes in the computer and bedside staff. . Sepsis Event Evaluation Height, Weight, BMI Height: 5'10.00" Weight: 187lbs. 2.0oz. 84.318783ij; 27.29 BMI Method:Estimated Exam Exam Patient acknowledged, consented, and participated in this virtual visit which was conducted using real time audio/video Vital Signs Date Time Temp Pulse Resp B/P (MAP) Pulse Ox O2 Delivery O2 Flow Rate FiO2 07/27/22 09:00 74 31 114/68 (83) 100 Room Air 07/27/22 08:29 36.1 07/27/22 08:00 68 118/64 (82) 100 Room Air 07/27/22 07:42 100 Room Air 07/27/22 07:19 99 Room Air 07/27/22 07:08 68 07/27/22 07:00 66 20 107/53 (71) 100 Room Air 07/27/22 06:00 65 18 101/54 (70) 100 Room Air 07/27/22 05:00 73 21 115/53 (73) 100 Room Air 07/27/22 04:22 100 Room Air 07/27/22 04:00 73 22 111/69 (83) 100 Room Air 07/27/22 03:00 84 29 109/66 (80) 100 Room Air 07/27/22 02:13 100 Room Air 07/27/22 02:00 69 29 102/60 (74) 100 Room Air 07/27/22 01:00 73 21 113/61 (78) 100 Room Air 07/27/22 01:00 72 07/27/22 00:00 Room Air 07/27/22 00:00 78 15 123/61 (81) 100 Room Air 07/26/22 23:00 86 27 129/66 (87) 100 Room Air 07/26/22 22:26 100 Room Air 07/26/22 22:00 80 28 132/72 (92) 100 Room Air 07/26/22 21:00 89 28 137/72 (93) 100 Room Air 07/26/22 20:00 89 20 138/89 (105) 100 Room Air 07/26/22 19:43 37.1 07/26/22 19:34 Room Air 07/26/22 19:00 88 15 136/79 (98) 100 Room Air 07/26/22 19:00 84 07/26/22 18:50 100 Room Air 07/26/22 18:00 92 17 146/84 (104) 100 Room Air 07/26/22 17:00 81 22 139/74 (95) 100 Room Air 07/26/22 16:00 36.3 07/26/22 16:00 Room Air 07/26/22 16:00 77 17 127/70 (89) 100 Room Air 07/26/22 15:00 73 22 130/70 (90) 100 Room Air 07/26/22 14:19 100 Room Air 07/26/22 14:00 63 13 125/66 (85) 100 Room Air 07/26/22 13:00 61 07/26/22 13:00 61 14 121/86 (98) 100 Room Air 07/26/22 13:00 64 18 113/71 (85) 100 Room Air 07/26/22 12:00 36.1 07/26/22 12:00 Room Air 07/26/22 11:00 66 112/70 (87) 100 Room Air 07/26/22 10:53 100 Room Air I & O 07/27/22 07:00 Intake Total 2101 ml Output Total 815 ml Balance 1286 ml Height & Weight Height: 5'10.00" Weight: 187lbs. 2.0oz. 84.597006ht; 27.29 BMI Method:Estimated General Appearance: Chronically ill, Other (resting) HEENT: PERRL/EOMI, Pharynx Normal Neck: Normal Inspection, Supple Respiratory: Lungs Clear, No Respiratory Distress Cardiovascular: Regular Rate, Rhythm, No Murmur Capillary Refill: Less Than 3 Seconds Gastrointestinal: normal bowel sounds, soft, no organomegaly, tenderness Extremity: Other (right arm edema and erythema improving) Neurologic/Psychiatric: Other (sleeping soundly, groaned when arm moved) Skin: Warm/Dry, Ecchymosis Results Lab Laboratory Tests 07/26/22 03:59 07/27/22 03:28 Assessment/Plan Assessment/Plan 1 ANDRE IVEY MD Jul 27, 2022 10:42
--- NOTE | 2022-07-27 10:43 | Physical Therapy Evaluation ---
PT Evaluation-General Medical Diagnosis Admission Date Jul 16, 2022 at 14:21 Medical Diagnosis: pelvic fracture Onset Date: Jul 27, 2022 Therapy Diagnosis Therapy Diagnosis: severe debility/weaknes/impaired mobility Height/Weight Height (Feet): 5 Height (Inches): 10.00 Weight (Pounds): 187 Weight (Ounces): 2.0 Precautions Precautions/Isolations: Fall Prevention, Standard Precautions Weight Bear Status Right Lower Extremity: Right Weight Bearing/Tolerated Left Lower Extremity: Left Full Weight Bearing Referral Physician: Hannah Reason for Referral: Evaluation/Treatment Medical History Pertinent Medical History: Alcoholism, CAD, CVA, DM, HTN Current History Patient had transferred to ICU due to agitation and combative behavior with sedation. Patient is now awake and able to actively participate with skilled therapy. Reviewed History: Yes Social History Home: Single Level Current Living Status: Spouse Entry Into Home: Stairs With Railing Prior Prior Level of Function SCALE: Activities may be completed with or without assistive devices. 1-Icbcavshjf-jssfqwn completes the activity by him/herself with no assistance from a helper. 5-Set-up or Clean-up Assistance-helper sets up or cleans up; patient completes activity. [place] assists only prior to or following the activity. 4-Supervision or Touching Assistance-helper provides verbal cues and/or touching/steadying and/or contact guard assistance as patient completes activity. Assistance may be provided throughout the activity or intermittently. 3-Partial/Moderate Assistance-helper does LESS THAN HALF the effort. [place] li fts, holds or supports trunk or limbs, but provides less than half the effort. 2-Substantial/Maximal Assistance-helper does MORE THAN HALF the effort. [place] lifts or holds trunk or limbs and provides more than half the effort. 0-Mmlwydnyz-syddia does ALL the effort. Patient does none of the effort to complete the activity. Or, the assistance of 2 or more helpers is required for the patient to complete the activity. If activity was not attempted, code reason: 7-Patient Refused. 9-Not Applicable-not attempted and the patient did not perform the activity before the current illness, exacerbation or injury. 10-Not Attempted due to Environmental Limitations-(lack of equipment, weather restraints, etc.). 88-Not Attempted due to Medical Conditions or Safety Concerns. Bed Mobility: 6 Transfers (B,C,W/C): 6 Gait: 6 Stairs: 6 Indoor Mobility (Ambulation): Independent Prior Devices Use: None PT Evaluation-Current Subjective Patient continues to be confused but is alert and able to actively participate with skilled PT. Objective Patient Orientation: Person Attachments: Parra Catheter, IV ROM/Strength ROM Lower Extremities bilateral LE WFL Strength Lower Extremities no formal testing due to confusion but 2/5 grossly bilateral LE Integumentary/Posture Integumentary refer to nursing notes Bladder Incontinence: Yes Neuromuscular (Tone, Coordination, Reflexes) severely diminished with all Sensory Vision: Functional Hearing: Impaired Transfers Roll Left to Right (QC): 1 (x 2) Sit to Lying (QC): 1 (x 2) Lying to Sitting/Side of Bed(Q: 1 (x 2) Sit to Stand (QC): 88 Chair/Tgv-sx-Wcqtd Xfer(QC): 88 Bed currently placed in chair position to address upright seated tolerance Gait Does the Patient Walk?: No and Walking Goal IS indicated Walk 10 feet (QC): 88 Gait Assistive Device: FWW Balance Sitting Static: Poor Sitting Dynamic: Poor Assessment/Needs Patient will benefit from skilled PT to address functional strength and mobility to improve current LOF. Patient is currently dependent of 2 with all activity due to weakness. Rehab Potential: Guarded PT Short Term Goals Short Term Goals Time Frame: August 08, 2022 Roll Left & Right: 2 Sit to lyin Lying to sitting on side of be: 2 Sit to stand: 2 Chair/lqq-cr-agumw transfer: 2 Walk 10 feet: 2 PT Pediatric Cns Goals Senior Care Goals PT Senior Care Goals Time Frame: August 22, 2022 Roll Left & Right (QC): 4 Sit to Lying (QC): 4 Lying-Sitting on Side/Bed(QC): 4 Sit to Stand (QC): 4 Chair/Pul-er-Lysfa Xfer(QC): 4 Toilet Transfer (QC): 4 Walk 10 feet (QC): 4 Walk 50ft with 2 Turns (QC): 4 PT Plan Treatment/Plan Treatment Plan: Continue Plan of Care Treatment Plan: Bed Mobility, Education, Functional Activity Hector, Functional Strength, Gait, Safety, Therapeutic Exercise, Transfers Treatment Duration: August 22, 2022 Frequency: 6 times per week Estimated Hrs Per Day: .25 hour per day Time Time In: 945 Time Out: 1004 DATE: Jul 27, 2022 Total Billed Treatment Time: 19 Total Billed Treatment 1 visit EVModC 19 min SARAN COOK PT Jul 27, 2022 10:43
[2022-07-27] MEDS ORDERED: DEXTROSE 50% 50 ML (IMS) SYR IV ONE (10:45)
[2022-07-27] MEDS: predniSONE 5 MG TAB PO SCH (11:15)
[2022-07-27] MEDS: DOCUSATE SODIUM 100 MG (COLACE) CAP PO SCH ×2 (11:15→21:35)
[2022-07-27] MEDS: FOLIC ACID 1 MG TAB PO SCH (11:15)
[2022-07-27] MEDS: SACUBITRIL/VALSARTAN 24/26 MG (ENTRESTO) TABLET PO SCH ×2 (11:15→21:16)
[2022-07-27] MEDS: AMIODARONE 200 MG (CORDARONE) TAB PO SCH (11:15)
[2022-07-27] MEDS: PANTOPRAZOLE 40 MG (PROTONIX) TAB PO SCH (11:16)
[2022-07-27] MEDS: CLOPIDOGREL 75 MG (PLAVIX) TABLET PO SCH (11:16)
[2022-07-27] MEDS: SENNOSIDES 8.6 MG (SENOKOT) TAB PO SCH ×2 (11:16→21:35)
--- NOTE | 2022-07-27 11:16 | Wound Care Assessment ---
Wound Care Assessment Date Seen by Provider: Jul 27, 2022 Time Seen by Provider: 11:11 Chief Complaint Skin tear R. elbow HPI This 77 year old patient was admitted to the hospital following fall to right side with numerous fractures resulting. He does also have a small skin tear to right elbow and significant edema localized to RUE. It should be noted that he is on some sedation and CIWA protocol for alcohol withdrawal. He is awake and alert and quite irritable. While evaluating his arm and discussing treatment he did raise his voice and state that we should "shut our fucking mouths and listen to what he says". Upon which he mentioned a need for ear drops. From nursing reaction I gather this sort of interaction is his baseline through this stay. Current dressings with silver alginate and BFD and his wound is improving with these recommendations (we will continue as such). He does also have a h/o DM2 (on insulin). Past Medical History: Admits Diabetes Type II, Admits Heart Disease ETOH abuse ([place]), metabolic encephalopathy, DM2, Atrial fibrillation with h/o CHF, h/o NHL Smoking Status: Never a Smoker Recreational Drug Use: No Alcohol Use: Regular Use ([place]/whiskey) Review of Systems General: Other Musculoskeletal: arm pain, hand pain Neurological: Weakness, Confusion Exam Vital Signs Date Time Temp Pulse Resp B/P (MAP) Pulse Ox O2 Delivery O2 Flow Rate FiO2 07/27/22 10:00 87 31 135/69 (91) 100 Room Air 07/27/22 08:29 36.1 07/24/22 14:14 0.00 07/23/22 04:39 28 Capillary Refill : Less Than 3 Seconds General Appearance: WD/WN, mild distress (Irritable) Respiratory: no respiratory distress, no accessory muscle use Extremities: other (RUE edema) Neurologic/Psychiatric: alert, other (poor historian, confused) Wound assessment: R. elbow. The epithelialization is none. There is no tunneling or undermining. Drainage is medium and serous. Granulatios is small and pink. necrotic is small and slough. The margins are flat Results Laboratory Tests 07/26/22 15:16: Glucometer 118H 07/26/22 17:33: Glucometer 134H 07/27/22 03:28: White Blood Count 14.0H, Red Blood Count 2.86L, Hemoglobin 7.2L, Hematocrit 24L, Mean Corpuscular Volume 84, Mean Corpuscular Hemoglobin 25, Mean Corpuscular Hemoglobin Concent 30L, Red Cell Distribution Width 18.2H, Platelet Count 356, Mean Platelet Volume 11.1, Immature Granulocyte % (Auto) 1, Neutrophils (%) (Auto) 84H, Lymphocytes (%) (Auto) 5L, Monocytes (%) (Auto) 9, Eosinophils (%) (Auto) 1, Basophils (%) (Auto) 0, Neutrophils # (Auto) 11.7H, Lymphocytes # (Auto) 0.7L, Monocytes # (Auto) 1.3H, Eosinophils # (Auto) 0.1, Basophils # (Auto) 0.0, Immature Granulocyte # (Auto) 0.2H, Sodium Level 142, Potassium Level 3.8, Chloride Level 115H, Carbon Dioxide Level 19L, Anion Gap 8, Blood Urea Nitrogen 19H, Creatinine 1.25, Estimat Glomerular Filtration Rate 60, BUN/Creatinine Ratio 15, Glucose Level 85, Calcium Level 8.0L, Magnesium Level 1.6 07/27/22 10:32: Glucometer 58*L 07/27/22 10:39: Glucometer 64L Assessment/Plan/Dx Assessment: 1. Skin tear right elbow 2. Localized edema RUE 3. ETOH abuse with withdrawal protocol 4. metabolic encephalopathy 5. DM2 6. Chronic prednisone usage 7. Atrial fibrillation with h/o CHF Plan: 1. Cleanse daily with Vashe. Apply silver alginate and BFD. Change daily 2. Elevate (as able) 3. Defer to primary team 4. Defer to primary team 5. Defer to primary team 6. Defer to primary team 7. Defer to primary team AFIA MOLINA MD Jul 27, 2022 11:16
--- NOTE | 2022-07-27 11:42 | Occupational Therapy Eval ---
OT Evaluation-General/PLF Medical Diagnosis Admission Date Jul 16, 2022 at 14:21 Medical Diagnosis: pelvic fracture Onset Date: Jul 27, 2022 Therapy Diagnosis Therapy Diagnosis: weakness/confusion/debility Height/Weight Height (Feet): 5 Height (Inches): 10.00 Weight (Pounds): 187 Weight (Ounces): 2.0 Precautions Precautions/Isolations: Fall Prevention, Standard Precautions Safety Interventions: Bed Exit Alarm Weight Bear Status Weight Bearing Restriction: Weight Bearing/Tolerated Location Restriction: R LE Referral Physician: Hannah Referral Reason: Activity Tolerance, Self Care, Evaluation/Treatment, Strengthening/ROM Medical History Pertinent Medical History: Alcoholism, CAD, CVA, DM, HTN Current History Patient had transferred to ICU due to agitation and combative behavior with sedation. Patient is now awake and able to actively participate with skilled therapy. Social History Home: Single Level Current Living Status: Spouse Entry Into Home: Stairs With Railing ADL-Prior Level of Function SCALE: Activities may be completed with or without assistive devices. 8-Zdnhjmddkk-rlolmwz completes the activity by him/herself with no assistance from a helper. 5-Set-up or Clean-up Assistance-helper sets up or cleans up; patient completes activity. [place] assists only prior to or following the activity. 4-Supervision or Touching Assistance-helper provides verbal cues and/or touching/steadying and/or contact guard assistance as patient completes activity. Assistance may be provided throughout the activity or intermittently. 3-Partial/Moderate Assistance-helper does LESS THAN HALF the effort. [place] lifts, holds or supports trunk or limbs, but provides less than half the effort. 2-Substantial/Maximal Assistance-helper does MORE THAN HALF the effort. [place] lifts or holds trunk or limbs and provides more than half the effort. 0-Nfsbshthh-hniwhx does ALL the effort. Patient does none of the effort to complete the activity. Or, the assistance of 2 or more helpers is required for the patient to complete the activity. If activity was not attempted, code reason: 7-Patient Refused. 9-Not Applicable-not attempted and the patient did not perform the activity before the current illness, exacerbation or injury. 10-Not Attempted due to Environmental Limitations-(lack of equipment, weather restraints, etc.). 88-Not Attempted due to Medical Conditions or Safety Concerns. Self Care: Independent Functional Cognition: Independent OT Current Status Subjective Patient agreeable ot OT,. patient son in room presently. Pain Comment: Patient apprehensive to perorm mobility and and requires assist sitting EOB Mental Status/Objective Patient Orientation: Person, Place Attachments: Parra Catheter, IV, Telemetry, Other-See Comments (CO2 monitor) Current Glasses/Contacts: Yes Upper Extremity ROM RUE ROM, tremor and edema deficits Upper Extremity Coordination impaired Upper Extremity Sensation impaired Upper Extremity Strength 3/5 Edema: RUE ADL-Treatment Eating (QC): 88 Oral Hygiene (QC): 88 Shower/Bathe Self (QC): 88 Upper Body Dressing (QC): 2 Lower Body Dressing (QC): 1 On/Off Footwear (QC): 1 Toileting Hygiene (QC): 1 Education OT Patient Education: Disease process, Instructions to caregiver, Modified ADL techniques, Progress toward Goal/Update tx plan, Purpose of tx/functional activities, Reviewed precautions, Rehab process, Safety issues, Transfer t echniques Teaching Recipient: Patient, Family Teaching Methods: Demonstration Response to Teaching: Reinforcement Needed OT Residential Goals Standards Analyst Goals Eating (QC): 6 Oral Hygiene (QC): 6 Toileting Hygiene (QC): 6 Shower/Bathe Self (QC): 6 Upper Body Dressing (QC): 6 Lower Body Dressing (QC): 6 On/Off Footwear (QC): 6 1=Demonstrate adherence to instructed precautions during ADL tasks. 2=Patient will verbalize/demonstrate understanding of assistive devices/modifications for ADL. 3=Patient will improve strength/tolerance for activity to enable patient to perform ADL's. OT Education/Plan Problem List/Assessment Assessment: Decreased Activ Tolerance, Decreased Safety Aware, Decreased UE Strength, Dependent Transfers, Impaired Bed Mobility, Impaired Cognition, Impaired Coordination, Impaired Funct Balance, Impaired Self-Care Skills, Restricted Funct UE ROM Discharge Recommendations Plan/Recommendations: Continue POC Treatment Plan/Plan of Care Treatment,Training & Education: Yes Patient would benefit from OT for education, treatment and training to promote independence in ADL's, mobility, safety and/or upper extremity function for ADL's. Plan of Care: ADL Retraining, Functional Mobility, Group Exercise/Act as Ind, UE Funct Exercise/Act Treatment Duration: Jul 25, 2022 Frequency: 3 times per week (3-5 times per week) Agreement: Yes Rehab Potential: Guarded Time Start Time: 09:45 Stop Time: 10:05 DATE: Jul 27, 2022 Total Time Billed (hr/min): 20 Billed Treatment Time EVM 20 min WILMER DYSON OT Jul 27, 2022 11:42
--- NOTE | 2022-07-27 12:45 | ST Dysphagia Evaluation ---
Speech Evaluation-General Medical Diagnosis Pelvic Fracture Onset Date: Jul 27, 2022 Therapy Diagnosis Therapy Diagnosis: Suspected Oropharyngeal Dysphagia Precautions Precautions: Fall, Aspiration Precautions/Isolations: Aspiration, Fall Prevention Referral Referring Physician: Dr. Marley Reason for Referral: Evaluation/Treatment Medical History Pertinent Medical History: Alcoholism, CAD, CVA, DM, HTN Reviewed History: Yes Social History Current Living Status: Spouse Speech PLF/Current-Dysphagia Prior Level of Function The patient is unable to provide prior level of function information (P.O. consistency) to the clinician due to his current level of decreased alertness/mentation. Subjective The patient was seated upright in his bed, awake, upon entrance to his room by the clinician. The patient has two family members present at bedside, who remain for the completion of the evaluation. The patient was agreeable to participation in the clinical bedside swallowing evaluation. The patient is currently receiving room air. Cognitive Status Patient Orientation: Confused Oral Motor Skills Dentition: Natural Ability to Follow Directions: Poor Oral Expression Ability: Severe Impairment Voice Voice Phonatory-Based Quality: Weak Voice Pitch: Normal Voice Loudness: Normal Face Facial Symmetry: Symmetrical Oral-Facial Assessment Oral-Facial Dentition: Normal Labial Seal Description: Weak, Poor Coordination Lingual Protrusion: Normal Lingual ROM: Normal Lingual Strength: Normal Volitional Dry Swallow: Yes Voluntary Cough: Yes Can Clear Throat Volitionally: Yes Productive Cough: Yes Productive Throat Clear: Yes Dysphagia Evaluation Consistencies Presented: Thin Liquid (Ice chips, teaspoon), Nice Thick Liquid (teaspoon, straw), Pureed The patient displayed decreased lingual and oral coordination throughout attempts to form an oral bolus, frequently displaying suspected posterior bolus loss. Laryngeal elevation was present to palpation. A delayed onset of the pharyngeal swallow was suspected. The patient displayed facial grimacing and facial expressions consistent with being startled upon the swallow. The patient denied odynophagia or a globus sensation. - To note, the patient displays an inconsistent, productive cough at baseline prior to the presentation of P.O. intake. The patient was provided ice chips, teaspoons of water, teaspoons of mildly thick liquid, straw drinks of mildly thick liquid, and teaspoons of puree. The patient displayed inconsistent s/s of suspected aspiration with P.O. intake of all consistencies characterized by an intermittent, rigorous cough, red face, and watery eyes. Due to the inconsistencies, the clinician is unable to rule out aspiration at the bedside with any consistency provided. Dietary Recommendations: NPO Liquid Recommendations: NPO Recommendations: - The patient should remain N.P.O. - Frequent and excellent oral care to reduce the transfer of aspiration to the lungs should aspiration of secretions occur. - Consider completion of a modified barium swallow evaluation to rule out aspiration with specific consistencies due to inconsistent s/s of suspected aspiration throughout the bedside evaluation. Radiology staff is not present at the facility on Wednesday. Due to this, the soonest available appointment is July 29 at 1015. Pending the appointment on July 29, the clinician will re-assess the patient at bedside on July 28. The results and recommendations were provided to the patient, the patient's family members, and the patient's RN immediately following completion of the treatment session. Dysphagia Evaluation Summary The patient demonstrated suspected oropharyngeal dysphagia characterized by poor lingual and oral coordination, a delayed onset of the pharyngeal swallow, and poor airway protection in the presence of bolus material. Speech Short Term Goals Short Term Goals Short Term Goals 1. The patient will display safe swallowing strategies with 80% accuracy and mild verbal cueing. Time Frame-STG: Three Days. Speech Apprentice Carpenter Goals Apprentice Carpenter Goals 1. The patient will tolerate the least restrictive diet consistency without s/s of suspected aspiration. Time Frame: One Week. Speech-Plan Treatment Plan Speech Therapy Treatment Plan: Continue Plan of Care Treatment Duration: Jul 27, 2022 Frequency: 4 times per week Estimated Hrs Per Day: .25 hour per day Rehab Potential: Guarded Pt/Family Agrees to Plan: Yes Safety Risks/Education Teaching Recipient: Patient Teaching Methods: Discussion Response to Teaching: Verbalize Understanding Time Speech Therapy Time In: 11:55 Speech Therapy Time Out: 12:18 DATE: Jul 27, 2022 Total Billed Time: 23 Billed Treatment Time 1, LUDMILA LEWIS [facility] Jul 27, 2022 12:45
--- NOTE | 2022-07-27 13:11 | Progress Note - Hospitalist ---
ESTRELLITA HOPPER 07/27/22 1311: Subjective HPI/CC On Admission Date Seen by Provider: Jul 27, 2022 Luis Alberto Wiseman is a 77yo male whom presented due to fall occurring 3 days ago and constant stabbing right sided pain. Pt was walking up the stairs and fell backwards and landed on his right side. Pt has associated painful breathing w/ deep inspiration. Movement/exertion aggravates pain on right side, and pain medication has helped alleviate pain. Pt states that he has fallen a lot more recently. Pt son at bedside stated pt has been experiencing dizziness and loss of balance for the past several months. Son states pt is typically sharp mentally, but feels that he is altered due to pain medication. At this time patient was oriented to person and year. Pt denied Fever, Chills, N/V/D, Abdominal Pain, Chest Pain, Headache. Subjective/Events-last exam Pt didn't have any acute event overnight. Today pt is doing well. Pt is Alert and Oriented to person and time but not place. Pt states that he is still having so right sided pain that worsens with deep inspiration. Patient is complaining of cough and congestion, but denies fever, chills, abdominal pain, and N/V/D. Review of Systems General: No Chills Pulmonary: No Dyspnea; Cough, Other (Congestion) Cardiovascular: No: Chest Pain Gastrointestinal: No: Nausea, Vomiting, Abdominal Pain, Diarrhea Objective Exam Vital Signs Vital Signs Date Time Temp Pulse Resp B/P (MAP) Pulse Ox O2 Delivery O2 Flow Rate FiO2 07/27/22 12:27 82 07/27/22 12:00 16 126/70 (88) 89 Room Air 07/27/22 12:00 36.4 07/24/22 14:14 0.00 07/23/22 04:39 28 Capillary Refill : Less Than 3 Seconds General Appearance: No Apparent Distress Respiratory: Chest Non Tender, Lungs Clear Cardiovascular: Regular Rate, Rhythm, No Edema, No Murmur, Normal Peripheral Pulses Gastrointestinal: Normal Bowel Sounds, Non Tender, Soft Neurologic/Psychiatric: Alert Skin: Normal Color, Warm/Dry Results/Procedures Lab Laboratory Tests 07/27/22 03:28 Patient resulted labs reviewed. Imaging: Reviewed Imaging Films, Reviewed Imaging Report Assessment/Plan Assessment and Plan Assess & Plan/Chief Complaint Metabolic Encephalopathy Delirum Alcohol W/D Thiamine Supplementation Check B12 and Folate Levels Continue IVF R. Superior and Inferior Pubic Fracture R. 4th, 5th, 6th Lateral Rib Fracture R. 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 Transfer to medical floor. Infed infusion for iron deficiency. Diagnosis/Problems Diagnosis/Problems (1) Alcohol withdrawal Status: Acute Qualifiers: Qualified Codes: F10.931 - Alcohol use, unspecified with withdrawal delirium (2) Anemia Status: Acute Qualifiers: Qualified Codes: D50.0 - Iron deficiency anemia secondary to blood loss (chronic) (3) Pelvic fracture Status: Acute (4) Rib fracture Status: Acute (5) Acute kidney injury superimposed on chronic kidney disease Status: Acute (6) HTN (hypertension) Status: Acute (7) T2DM (type 2 diabetes mellitus) Status: Acute Qualifiers: Qualified Codes: E11.649 - Type 2 diabetes mellitus with hypoglycemia without coma; Z79.4 - shelter (current) use of insulin (8) Debility Status: Acute Supervisory-Addendum Brief Verification & Attestation Participated in pt care: history, MDM, physical Personally performed: exam, history, MDM, supervision of care Care discussed with: Medical Student Procedures: n/a Results interpretation: Verified all documentation A medical student performed and documented this service in my presence. I reviewed and verified all information documented by the medical student and made modifications to such information, when appropriate. I personally performed the physical exam and medical decision making. ESTRELLITA HOPPER Jul 27, 2022 13:11 URBANO BOWEN MD Jul 27, 2022 15:56
[2022-07-27] MEDS: LORazepam INJ 2 MG/ML (ATIVAN) VIAL IV PRN ×3 (15:40→21:52)
[2022-07-27] MEDS ORDERED: IRON DEXTRAN INJECTION 25 MG in NS (IVPB) 5.75 ML IV ONE (16:00)
[2022-07-27] MEDS ORDERED: EPINEPHrine INJECTION 1 MG/ML AMP IM PRN (16:00)
[2022-07-27] MEDS ORDERED: HYDROCORTISONE 100 MG/2 ML (Solu-CORTEF) VIAL IV PRN (16:00)
[2022-07-27] MEDS ORDERED: diphenhydrAMINE 50 MG/ML INJ (BENADRYL) IV PRN (16:00)
[2022-07-27] MEDS ORDERED: IRON DEXTRAN INJECTION 1,000 MG in NS (IVPB) 250 ML IV ONE (16:00)
[2022-07-27] MEDS: NS IV 500 ML 500 ML IV SCH (16:30)
[2022-07-27] MEDS: fentaNYL INJ 100 MCG/2 ML AMP IVP PRN (16:44)
[2022-07-27] MEDS: HALOPERIDOL 5 MG/ML (HALDOL) VIAL IM PRN (16:44)
[2022-07-27] MEDS: IRON SUCROSE 200 MG/10 ML (VENOFER) VIAL IV SCH (16:48)
[2022-07-28] MEDS: meTOprolol 5 MG/5 ML (LOPRESSOR) VIAL IV SCH ×5 (00:39→23:15)
[2022-07-28] MEDS: LORazepam INJ 2 MG/ML (ATIVAN) VIAL IV PRN ×3 (01:12→22:49)
[2022-07-28] MEDS: D5 1/2 NS 1000 ML IV SOLUTION 1,000 ML IV SCH (01:16)
[2022-07-28] MEDS: MAGNESIUM 1 GM/100 ML IVPB 100 ML IV SCH (05:48)
[2022-07-28] MEDS: KCL 20 MEQ TAB (K-DUR) PO SCH (05:48)
[2022-07-28] MEDS: POTASSIUM CL 10MEQ/50ML IVPB 50 ML IV SCH (05:48)
[2022-07-28] MEDS: POTASSIUM BICARB 20 MEQ (EFFER-K) TABLET PO SCH (05:48)
[2022-07-28] MEDS: SUCRALFATE 1 GM (CARAFATE) TAB PO SCH ×4 (05:49→20:25)
[2022-07-28] MEDS: MULTIVIT W/MINERALS TAB (THERAGRAN M) PO SCH (05:49)
[2022-07-28] MEDS: THIAMINE 100 MG (VITAMIN B-1) TAB PO SCH (05:49)
[2022-07-28] MEDS: inSUlin ASPART (NovoLOG) 1 UNIT/0.01 ML (CHARGE PER UNIT) SC SCH ×4 (06:00→21:13)
[2022-07-28] MEDS: ENOXAPARIN 80 MG/0.8 ML (LOVENOX) SYR SC SCH ×2 (06:00→17:43)
[2022-07-28] MEDS: RT-ALBUTEROL SULF 2.5 MG/3 ML PRE-MIX VIAL IH PRN ×2 (07:44→10:40)
[2022-07-28 08:46] LABS: HEMATOCRIT 23 % (40-54); HEMOGLOBIN 7.1 g/dL (13.3-17.7); MEAN CORPUSCULAR HEMOGLOBIN 25 pg (25-34); MEAN CORPUSCULAR HGB CONC 31 g/dL (32-36); MEAN CORPUSCULAR VOLUME 82 fL (80-99); MEAN PLATELET VOLUME 10.8 fL (9.0-12.2); PLATELET COUNT 415 10^3/uL (130-400); WHITE BLOOD COUNT 14.1 10^3/uL (4.3-11.0)
[2022-07-28] MEDS: predniSONE 5 MG TAB PO SCH (08:48)
[2022-07-28] MEDS: DOCUSATE SODIUM 100 MG (COLACE) CAP PO SCH ×2 (08:48→20:26)
[2022-07-28] MEDS: NS IV 500 ML 500 ML IV SCH (08:48)
[2022-07-28] MEDS: PANTOPRAZOLE 40 MG (PROTONIX) TAB PO SCH (08:49)
[2022-07-28] MEDS: FOLIC ACID 1 MG TAB PO SCH (08:49)
[2022-07-28] MEDS: CLOPIDOGREL 75 MG (PLAVIX) TABLET PO SCH (08:49)
[2022-07-28] MEDS: SACUBITRIL/VALSARTAN 24/26 MG (ENTRESTO) TABLET PO SCH ×2 (08:49→20:26)
[2022-07-28] MEDS: AMIODARONE 200 MG (CORDARONE) TAB PO SCH (08:49)
[2022-07-28] MEDS: SENNOSIDES 8.6 MG (SENOKOT) TAB PO SCH ×2 (08:49→20:26)
[2022-07-28 09:03] LABS: CREATININE SERUM 1.54 MG/DL (0.60-1.30); POTASSIUM 3.9 MMOL/L (3.6-5.0)
--- NOTE | 2022-07-28 09:25 | Diagnostic Imaging Report ---
Indication: Hypoxia. Comparison: 07/23/2022 Findings: Heart size upper limits but unchanged, however there is increased vascular congestion and increased bilateral largely perihilar mixed interstitial and airspace densities favored to be edema. There are small pleural effusions new or increased. There is no pneumothorax. Impression: Likely failure pattern with increased congestion, edema and pleural fluid. Pneumonia superimposed could not be excluded in the appropriate clinical scenario. Dictated by: Dictated on workstation # [id number]
[2022-07-28] MEDS: PANTOPRAZOLE 40 MG (PROTONIX) VIAL IV SCH (09:32)
[2022-07-28] MEDS: ACETAMINOPHEN 650 MG SUPP (TYLENOL) PR PRN ×2 (09:57→16:15)
[2022-07-28] MEDS ORDERED: VANCOMYCIN INJECTION 0.1 MG in NS (IVPB) 250 ML IV SCH (10:45)
--- NOTE | 2022-07-28 10:50 | Speech Therapy Progress Note ---
Therapy Progress Note Speech pathology attempted dysphagia follow up skilled treatment at 0946 on this date. At this time, the patient is requiring increased oxygen and is displaying increased confusion. The RN requested a HOLD. The patient is scheduled for a modified barium swallow on 07/29/22 (tomorrow) at 1015. Prior to the scheduled assessment, the clinician will evaluate the patient at bedside for appropriateness and ability to fully cooperate/participate. ST requested the RN/staff contact her if the patient displays increased ability to participated in skilled care on this date. HOLD. ZULAY CHAPARRO Jul 28, 2022 10:50
[2022-07-28] MEDS ORDERED: VANCOMYCIN 1,750 MG/NS 500 ML IVPB IV ONE ×2 (11:00)
--- NOTE | 2022-07-28 11:12 | Occ Therapy Progress Note ---
Therapy Progress Note Patient on Hold per RN due to current medical status. OT will attempt tomorrow WILMER Ruiz OT Jul 28, 2022 11:11
--- NOTE | 2022-07-28 11:16 | Physical Therapy Progress Note ---
Therapy Progress Note Patient on hold per RN due to currently medical status. Will attempt tomorrow. SARAN COOK PT Jul 28, 2022 11:16
--- NOTE | 2022-07-28 11:28 | Tele-ICU Progress Note ---
Subjective Date Seen by a Provider: Jul 28, 2022 Time Seen by a Provider: 11:28 Subjective/Events-last exam (Tele-ICU Physician , Progress Note ) Service provided via interactive audio and video telecommunications E-CARE system to a patient admitted to ICU bed in [facility]. Patient is seen today due to persistent need of ICU care Available chart/ vitals / labs / Images reviewed Video assessment done using teleICU camera, rest of exam as per RN Discussed with RN Events overnight : Afebrile hemodynamically stable Respiratory - ra I/O = ++ Drips: d5 1/2 ns 100cc/h Pressors- no Hospital course: 77 y/o maleadmitted 07/16 after fall pelvic and rib fracture 07/23 to ICU from floor with etoh withdrawal , on precedex 07/24- vital stable , on RA , still confused and mildly agitated today , moves all extremities , moaning, precedex gtt 07/26- off precedex , some ?hallucinations 07/26 evening 07/27 - precedex 0.2 - STOPPED , AAO x 2 , speech eval - didn nor passes - inncreased needs for O2 to 5 L FEBRILE A/P ETOH abuse /withdrawal syndrome ( still confused and mildly agitated today , moves all extremities , moaning ) -07/27 - precedex 0.2 - STOPPED , AAO x2 07/28 - confused , barely responsive - suspected TME with new fever will recheck ABG , check ammonia level FEBRILE 39 F on 07/28 ( Leukocytosis 07/23 - Cefepime started 07/23), no infiltrate on cxr - - ? sourse - broad spectrum abx ordered , cx , ua pending , check LFT - was given haldol - ? NMS - will check CPK and LFT Hypoxia - 5 L O2 - low susp for PE ( was on full dose lovenox ) - ? PNA -? noncard pulm kim a- VO with IVF and low protein minimal po intake ) - at risk for card pulm edema - Severe MR on ECHO 2021 - check BNP R. 4th, 5th, 6th Lateral Rib Fracture - now with decreased Sao2 - / shallow breathing vs splinting = at risk for PNA - R. 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 Discussed with RN to reach out if any questions or concerns A total of 35 minutes of critical care time was devoted to this patient today, required to treat and/or prevent further deterioration of critical care condition ( as above ) . I am remotely monitoring this patient from another state. I am unable to do the bedside exam, and history/physical and pertinent information is taken from other notes in the computer and bedside staff. . Sepsis Event Evaluation Height, Weight, BMI Height: 5'10.00" Weight: 187lbs. 2.0oz. 84.360163rq; 27.13 BMI Method:Estimated Focused Exam Lactate Level 07/28/22 11:00: Lactic Acid Level Laboratory Tests Test 07/28/22 11:00 Exam Exam Patient acknowledged, consented, and participated in this virtual visit which was conducted using real time audio/video Vital Signs Date Time Temp Pulse Resp B/P (MAP) Pulse Ox O2 Delivery O2 Flow Rate FiO2 07/28/22 10:48 95 Nasal Cannula 4.00 07/28/22 10:45 37.9 07/28/22 09:57 39.0 07/28/22 07:46 92 Nasal Cannula 3.00 07/28/22 07:44 95 Nasal Cannula 3.00 07/28/22 07:35 37.1 93 23 150/80 (103) 94 Nasal Cannula 3.00 07/28/22 07:32 92 07/28/22 07:00 90 150/80 (103) 92 Nasal Cannula 2.00 07/28/22 04:00 36.6 90 133/69 (90) 93 Nasal Cannula 2.00 07/28/22 03:02 99 Room Air 07/28/22 01:30 Nasal Cannula 2.00 07/28/22 01:00 100 07/28/22 00:00 82 144/79 (100) 90 Room Air 07/27/22 22:12 99 Room Air 07/27/22 22:00 106 160/86 (110) 91 Room Air 07/27/22 21:25 99 Room Air 07/27/22 21:00 107 91 Room Air 07/27/22 20:00 109 88 Room Air 07/27/22 20:00 96 Room Air 07/27/22 19:00 106 85 Room Air 07/27/22 19:00 107 07/27/22 18:24 99 Room Air 07/27/22 18:00 135/89 (104) 85 Room Air 07/27/22 17:00 101 48 111/69 (83) 91 Room Air 07/27/22 16:22 100 Room Air 07/27/22 16:00 36.8 07/27/22 16:00 101 46 128/86 (100) 91 Room Air 07/27/22 15:14 99 Room Air 07/27/22 15:00 92 21 129/89 (102) 92 Room Air 07/27/22 14:00 89 17 123/104 (110) 88 Room Air 07/27/22 13:00 76 40 109/88 (95) 91 Room Air 07/27/22 12:35 100 Room Air 07/27/22 12:27 82 07/27/22 12:00 80 16 126/70 (88) 89 Room Air 07/27/22 12:00 36.4 I & O 07/28/22 07:00 Intake Total 1401 ml Output Total 1225 ml Balance 176 ml Height & Weight Height: 5'10.00" Weight: 187lbs. 2.0oz. 84.504881ka; 27.13 BMI Method:Estimated General Appearance: No Apparent Distress HEENT: PERRL/EOMI, Pharynx Normal Neck: Normal Inspection, Supple Respiratory: Chest Non Tender, Lungs Clear Cardiovascular: Regular Rate, Rhythm, No Edema, No Murmur, Normal Peripheral Pulses Capillary Refill: Less Than 3 Seconds Gastrointestinal: normal bowel sounds, soft, no organomegaly, tenderness Extremity: Other (right arm edema and erythema improving) Neurologic/Psychiatric: Alert Skin: Normal Color, Warm/Dry Results Lab Laboratory Tests 07/27/22 03:28 07/28/22 08:37 Assessment/Plan Assessment/Plan 1 ANDRE IVEY MD Jul 28, 2022 11:28
[2022-07-28 11:30] LABS: ABG OXYGEN SATURATION 68 % (94-100); ABG PCO2 34 MMHG (35-45); ABG PH 7.41 (7.37-7.43); ABG PO2 42 MMHG (79-93); ABG TCO2 21.7 MMOL/L (21.0-31.0)
[2022-07-28 11:31] LABS: BILIRUBIN,URINE NEGATIVE (NEGATIVE); CLARITY,URINE CLOUDY; COLOR,URINE YELLOW; GLUCOSE, URINE (UA) 3+ (NEGATIVE); KETONES,URINE NEGATIVE (NEGATIVE); LEUKOCYTE ESTERASE ,URINE 2+ (NEGATIVE); NITRITE,URINE NEGATIVE (NEGATIVE); PH,URINE 5.5 (5-9); PROTEIN,URINE 2+ (NEGATIVE)
[2022-07-28] MEDS: metroNIDAZOLE 500MG/100ML IVPB 100 ML IV SCH ×2 (11:33→19:17)
[2022-07-28] MEDS: CEFEPIME INJECTION 1,000 MG in NS (IVPB) 50 ML IV SCH ×2 (11:33→21:02)
[2022-07-28 11:36] LABS: VENTILATOR NO
[2022-07-28 11:40] LABS: ALBUMIN 2.5 GM/DL (3.2-4.5); BILIRUBIN,DIRECT 0.4 MG/DL (0.0-0.3); BILIRUBIN,INDIRECT 0.3 MG/DL; BILIRUBIN,TOTAL 0.7 MG/DL (0.1-1.0); TOTAL PROTEIN 5.1 GM/DL (6.4-8.2)
[2022-07-28 11:56] LABS: ABG BASE EXCESS -4.4 MMOL/L (-2.5-2.5); ABG OXYGEN SATURATION 99 % (94-100); ABG PCO2 29 MMHG (35-45); ABG PH 7.43 (7.37-7.43); ABG PO2 94 MMHG (79-93); ABG TCO2 19.8 MMOL/L (21.0-31.0)
[2022-07-28 11:57] LABS: ALLENS TEST YES-POS; PATIENT TEMP 37.7; VENTILATOR NO
[2022-07-28 12:25] LABS: BACTERIA,URINE FEW /HPF; RBC,URINE >100 /HPF; WBC,URINE 25-50 /HPF
[2022-07-28 12:26] LABS: AMORPHOUS SEDIMENT,UR MOD AMOR URATES /LPF; YEAST,URINE LARGE /HPF
[2022-07-28] MEDS: ALBUMIN 25% 25 GM/100 ML 50 ML IV SCH ×2 (14:07→21:51)
--- NOTE | 2022-07-28 14:23 | Diagnostic Imaging Report ---
INDICATION: Swelling, edema. FINDINGS: Right upper extremity venous system showed normal color flow, normal compressibility, and normal waveforms. No deep or visible superficial thrombus. There is some subcutaneous edema about the arm, but no discrete fluid collection. IMPRESSION: Subcutaneous edema, but negative for venous thrombus in the right upper extremity. Dictated by: Dictated on workstation # [id number]
[2022-07-28] MEDS: fentaNYL INJ 100 MCG/2 ML AMP IVP PRN ×4 (14:31→23:48)
--- NOTE | 2022-07-28 15:14 | Progress Note - Hospitalist ---
ESTRELLITA HOPPER 07/28/22 1514: Subjective HPI/CC On Admission Date Seen by Provider: Jul 28, 2022 Luis Alberto Wiseman is a 77yo male whom presented due to fall occurring 3 days ago and constant stabbing right sided pain. Pt was walking up the stairs and fell backwards and landed on his right side. Pt has associated painful breathing w/ deep inspiration. Movement/exertion aggravates pain on right side, and pain medication has helped alleviate pain. Pt states that he has fallen a lot more recently. Pt son at bedside stated pt has been experiencing dizziness and loss of balance for the past several months. Son states pt is typically sharp mentally, but feels that he is altered due to pain medication. At this time patient was oriented to person and year. Pt denied Fever, Chills, N/V/D, Abdominal Pain, Chest Pain, Headache. Subjective/Events-last exam Pt was seen and interviewed today. Yesterday pt was alert and Orientated to person and time, but seemed to deteriorate around 3pm yesterday. Pt began to become combative for which haldol was administered. Per nurse patient received 6mg of Ativan since yesterday at 4pm with last dose being at 1am this morning. Pt was not awaken by sternal rub and did not participate in interview. Focused Exam Lactate Level 07/28/22 11:00: Lactic Acid Level 1.08 Objective Exam Vital Signs Vital Signs Date Time Temp Pulse Resp B/P (MAP) Pulse Ox O2 Delivery O2 Flow Rate FiO2 07/28/22 14:00 84 18 129/97 (108) 99 Nasal Cannula 3.00 07/28/22 12:04 37.8 07/28/22 11:06 36 Capillary Refill : Less Than 3 Seconds General Appearance: No Apparent Distress Respiratory: No Lungs Clear, No Normal Breath Sounds; Crackles Cardiovascular: Regular Rate, Rhythm, No Murmur, Normal Peripheral Pulses Gastrointestinal: Normal Bowel Sounds, Non Tender, Soft Skin: Normal Color, Warm/Dry Results/Procedures Lab Laboratory Tests 07/28/22 08:37 Patient resulted labs reviewed. Imaging: Reviewed Imaging Films, Reviewed Imaging Report Assessment/Plan Assessment and Plan Assess & Plan/Chief Complaint Sepsis Secondary to Pneumonia Acute CHF Exacerbation SIRS +: Elevated Temp; Tachycardia; Elevated White Count CXR 07/28/22: failure pattern with increased congestion, edema and pleural fluid. Pneumonia superimposed could not be excluded in the appropriate clinical scenario BNP Ordered to Evaluate Fluid Overload Elevated BNP Blood Cultures Ordered- Awaiting Results Lactic Acid Ordered: Within normal Limits Start IV Abx: Vancomycin, Cefepime, and Metronidazole- Coverage for Hospital acquired Pneumonia and Aspiration Pneumonia IVF Held due to Volume Overload Hypoalbuminemia Continue Albumin Supplementation Metabolic Encephalopathy Delirum Alcohol W/D Continue Thiamine Supplementation B12 and Folate Levels within Normal Limits R. Superior and Inferior Pubic Fracture R. 4th, 5th, 6th Lateral Rib Fracture R. 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 Fever this morning. Sepsis workup initiated. Chest xray revealed pneumonia. Started on antibiotics. Poor prognosis discussed with son at bedside. Discussed with family and elected to change to DNR. Critical Care: Critically Ill Patient Diagnosis/Problems Diagnosis/Problems (1) Sepsis Status: Acute (2) PNA (pneumonia) Status: Acute (3) Debility Status: Acute (4) Alcohol withdrawal Status: Acute Qualifiers: Qualified Codes: F10.931 - Alcohol use, unspecified with withdrawal delirium (5) Pelvic fracture (6) Rib fractures Status: Acute Qualifiers: Qualified Codes: S22.41XA - Multiple fractures of ribs, right side, initial encounter for closed fracture (7) Acute kidney injury superimposed on chronic kidney disease Status: Acute (8) HTN (hypertension) Status: Acute (9) T2DM (type 2 diabetes mellitus) Status: Acute Qualifiers: Qualified Codes: E11.649 - Type 2 diabetes mellitus with hypoglycemia witho ut coma; Z79.4 - USP (current) use of insulin (10) Anemia Status: Acute Qualifiers: Qualified Codes: D50.0 - Iron deficiency anemia secondary to blood loss (chronic) (11) Poor prognosis Status: Acute Supervisory-Addendum Brief Verification & Attestation Participated in pt care: history, MDM, physical Personally performed: exam, history, MDM, supervision of care Care discussed with: Medical Student Procedures: n/a Results interpretation: Verified all documentation A medical student performed and documented this service in my presence. I revi ewed and verified all information documented by the medical student and made modifications to such information, when appropriate. I personally performed the physical exam and medical decision making. ESTRELLITA HOPPER Jul 28, 2022 15:14 URBANO BOWEN MD Jul 28, 2022 17:49
[2022-07-28] MEDS: RT-ALBUTEROL SULF 2.5 MG/3 ML PRE-MIX VIAL INH SCH ×3 (15:25→22:12)
[2022-07-29] MEDS: RT-ALBUTEROL SULF 2.5 MG/3 ML PRE-MIX VIAL INH SCH ×6 (02:19→22:35)
[2022-07-29] MEDS: NS IV 500 ML 500 ML IV SCH ×2 (02:57→18:30)
[2022-07-29] MEDS: CEFEPIME INJECTION 1,000 MG in NS (IVPB) 50 ML IV SCH ×3 (03:16→19:28)
[2022-07-29] MEDS: metroNIDAZOLE 500MG/100ML IVPB 100 ML IV SCH ×3 (03:16→19:28)
[2022-07-29 03:49] LABS: BASOPHILS # (AUTO) 0.1 10^3/uL (0.0-0.1); BASOPHILS % (AUTO) 1 % (0-10); EOSINOPHILS # (AUTO) 0.1 10^3/uL (0.0-0.3); EOSINOPHILS % (AUTO) 1 % (0-10); HEMATOCRIT 25 % (40-54); HEMOGLOBIN 7.4 g/dL (13.3-17.7); LYMPHOCYTES # (AUTO) 1.2 10^3/uL (1.0-4.0); LYMPHOCYTES % (AUTO) 9 % (12-44); MEAN CORPUSCULAR HEMOGLOBIN 25 pg (25-34); MEAN CORPUSCULAR HGB CONC 30 g/dL (32-36); MEAN CORPUSCULAR VOLUME 83 fL (80-99); MEAN PLATELET VOLUME 10.6 fL (9.0-12.2); MONOCYTES # (AUTO) 1.6 10^3/uL (0.0-1.0); MONOCYTES % (AUTO) 12 % (0-12); NEUTROPHILS # (AUTO) 10.2 10^3/uL (1.8-7.8); NEUTROPHILS % (AUTO) 75 % (42-75); PLATELET COUNT 447 10^3/uL (130-400); WHITE BLOOD COUNT 13.6 10^3/uL (4.3-11.0)
[2022-07-29 04:03] LABS: ALBUMIN 2.9 GM/DL (3.2-4.5)
[2022-07-29 04:04] LABS: POTASSIUM 4.1 MMOL/L (3.6-5.0)
[2022-07-29 04:05] LABS: CALCIUM 8.6 MG/DL (8.5-10.1)
[2022-07-29 04:06] LABS: TOTAL PROTEIN 5.6 GM/DL (6.4-8.2)
[2022-07-29 04:08] LABS: BILIRUBIN,TOTAL 0.8 MG/DL (0.1-1.0)
[2022-07-29 04:09] LABS: PHOSPHORUS 3.6 MG/DL (2.3-4.7)
[2022-07-29 04:10] LABS: CREATININE SERUM 1.54 MG/DL (0.60-1.30)
[2022-07-29 04:12] LABS: MAGNESIUM 1.9 MG/DL (1.6-2.4)
[2022-07-29] MEDS: fentaNYL INJ 100 MCG/2 ML AMP IVP PRN ×4 (05:30→20:23)
[2022-07-29] MEDS: ENOXAPARIN 80 MG/0.8 ML (LOVENOX) SYR SC SCH ×2 (05:30→17:51)
[2022-07-29] MEDS: meTOprolol 5 MG/5 ML (LOPRESSOR) VIAL IV SCH ×3 (05:35→17:48)
[2022-07-29] MEDS ORDERED: MAGNESIUM 1 GM/100 ML IVPB 200 ML IV ONE (06:24)
[2022-07-29] MEDS: MAGNESIUM 1 GM/100 ML IVPB 100 ML IV SCH ×3 (06:26→07:09)
[2022-07-29] MEDS: inSUlin ASPART (NovoLOG) 1 UNIT/0.01 ML (CHARGE PER UNIT) SC SCH ×4 (06:26→20:12)
[2022-07-29] MEDS: POTASSIUM CL 10MEQ/50ML IVPB 50 ML IV SCH (07:07)
[2022-07-29] MEDS: POTASSIUM BICARB 20 MEQ (EFFER-K) TABLET PO SCH (07:08)
[2022-07-29] MEDS: SUCRALFATE 1 GM (CARAFATE) TAB PO SCH ×4 (07:08→19:14)
[2022-07-29] MEDS: KCL 20 MEQ TAB (K-DUR) PO SCH (07:08)
[2022-07-29] MEDS: MULTIVIT W/MINERALS TAB (THERAGRAN M) PO SCH (07:09)
[2022-07-29] MEDS: THIAMINE 100 MG (VITAMIN B-1) TAB PO SCH (07:09)
[2022-07-29] MEDS ORDERED: NS IV 1000 ML 1,000 ML ONE (07:13)
[2022-07-29] MEDS ORDERED: NS IV 1000 ML 1,000 ML IV SCH (07:15)
[2022-07-29] MEDS: ACETAMINOPHEN 650 MG SUPP (TYLENOL) PR PRN ×3 (07:20→18:39)
[2022-07-29] MEDS: PANTOPRAZOLE 40 MG (PROTONIX) VIAL IV SCH (08:28)
[2022-07-29] MEDS: predniSONE 5 MG TAB PO SCH (08:29)
[2022-07-29] MEDS: DOCUSATE SODIUM 100 MG (COLACE) CAP PO SCH ×2 (08:38→19:14)
[2022-07-29] MEDS: AMIODARONE 200 MG (CORDARONE) TAB PO SCH (08:38)
[2022-07-29] MEDS: SACUBITRIL/VALSARTAN 24/26 MG (ENTRESTO) TABLET PO SCH ×2 (08:38→19:14)
[2022-07-29] MEDS: CLOPIDOGREL 75 MG (PLAVIX) TABLET PO SCH (08:39)
[2022-07-29] MEDS: SENNOSIDES 8.6 MG (SENOKOT) TAB PO SCH ×2 (08:39→19:14)
[2022-07-29] MEDS: FOLIC ACID 1 MG TAB PO SCH (08:39)
--- NOTE | 2022-07-29 10:14 | Tele-ICU Progress Note ---
Subjective Date Seen by a Provider: Jul 29, 2022 Time Seen by a Provider: 10:13 Subjective/Events-last exam (Tele-ICU Physician , Progress Note ) Service provided via interactive audio and video telecommunications E-CARE system to a patient admitted to ICU bed in [facility]. Patient is seen today due to persistent need of ICU care Available chart/ vitals / labs / Images reviewed Video assessment done using teleICU camera, rest of exam as per RN Discussed with RN Events overnight : low UO , received 1 L NS FEBRILE hemodynamically stable Respiratory - 3l I/O = ++ Drips: Pressors- no Hospital course: 77 y/o maleadmitted 07/16 after fall pelvic and rib fracture 07/23 to ICU from floor with etoh withdrawal , on precedex 07/24- vital stable , on RA , still confused and mildly agitated today , moves all extremities , moaning, precedex gtt 07/26- off precedex , some ?hallucinations 07/26 evening 07/27 - precedex 0.2 - STOPPED , AAO x 2 , speech eval - didn nor passes - inncreased needs for O2 to 5 L FEBRILE - started on abx ( cefepime , vanco , flagyl ) , RUE edema - no dvt on us 07/28/22, DNI/DNR as per family 07/29- low UO , received 1 L NS still febtile and very somcolent/confused A/P ETOH abuse /withdrawal syndrome ( still confused and mildly agitated today , moves all extremities , moaning ) -07/27 - precedex 0.2 - STOPPED , AAO x2 07/28 - confused , barely responsive - suspected TME with new fever , ABG , ammonia level , LFT WNL FEBRILE 39 F on 07/28 ( Leukocytosis 07/23 - Cefepime started 07/23), no infiltrate on cxr 07/28 fevr- / sourse - broad spectrum abx cefepime , vanco , flagyl ( cxr - volume overload +/- PNA, cx pending , Ua durty - frol old catheter - was given haldol - less likely NMS - will NL CPK and LFT Hypoxia - 5 L O2 - low susp for PE ( was on full dose lovenox ) - suspecyted PNA - noncard pulm kim a- VO with IVF and low protein minimal po intake ) - card pulm edema - Severe MR on ECHO 2021 RICHARD on CKD -improved , worse 07/28 again - was on hydration IV - , nl CPK - received albumin and IVF R. 4th, 5th, 6th Lateral Rib Fracture - now with decreased Sao2 - / shallow breathing vs splinting = at risk for PNA - R. 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 Discussed with RN to reach out if any questions or concerns A total of 35 minutes of critical care time was devoted to this patient today, required to treat and/or prevent further deterioration of critical care condition ( as above ) . I am remotely monitoring this patient from another state. I am unable to do the bedside exam, and history/physical and pertinent information is taken from other notes in the computer and bedside staff. . Sepsis Event Evaluation Height, Weight, BMI Height: 5'10.00" Weight: 187lbs. 2.0oz. 84.459921go; 26.52 BMI Method:Estimated Focused Exam Lactate Level 07/28/22 11:00: Lactic Acid Level 1.08 Exam Exam Patient acknowledged, consented, and participated in this virtual visit which was conducted using real time audio/video Vital Signs Date Time Temp Pulse Resp B/P (MAP) Pulse Ox O2 Delivery O2 Flow Rate FiO2 07/29/22 09:00 90 31 136/74 (94) 98 Nasal Cannula 3.00 07/29/22 08:15 37.8 07/29/22 08:00 38.1 07/29/22 08:00 90 34 148/69 (95) 96 Nasal Cannula 3.00 07/29/22 07:34 96 07/29/22 07:00 93 25 151/87 (108) 100 Nasal Cannula 3.00 07/29/22 06:57 99 Nasal Cannula 3.00 07/29/22 06:30 38.1 07/29/22 06:00 89 30 151/73 (99) 99 Nasal Cannula 3.00 07/29/22 05:00 98 149/83 (110) 98 Nasal Cannula 3.00 07/29/22 04:00 97 Nasal Cannula 3.00 07/29/22 04:00 37.3 07/29/22 04:00 97 147/82 (111) 96 Nasal Cannula 3.00 07/29/22 03:00 100 151/83 (113) 95 Nasal Cannula 3.00 07/29/22 02:19 96 Nasal Cannula 3.00 07/29/22 02:00 96 38 152/76 (114) 99 Nasal Cannula 3.00 07/29/22 01:00 94 07/29/22 01:00 94 28 140/113 (120) 98 Nasal Cannula 3.00 07/29/22 00:07 97 Nasal Cannula 3.00 07/29/22 00:00 86 31 137/78 (98) 96 Nasal Cannula 3.00 07/29/22 00:00 37.1 07/28/22 23:00 101 140/90 (113) 92 Nasal Cannula 3.00 07/28/22 22:12 96 Nasal Cannula 4.00 07/28/22 22:00 94 156/80 (104) 99 Nasal Cannula 3.00 07/28/22 21:00 91 17 131/74 (99) 95 Nasal Cannula 3.00 07/28/22 20:20 97 Nasal Cannula 3.00 07/28/22 20:00 93 39 141/80 (118) 95 Nasal Cannula 3.00 07/28/22 19:59 37.2 07/28/22 19:03 96 Nasal Cannula 4.00 07/28/22 19:00 87 13 142/70 (117) 96 Nasal Cannula 3.00 07/28/22 19:00 87 07/28/22 18:00 80 129/91 (104) 100 Nasal Cannula 3.00 07/28/22 17:00 90 144/74 (97) 99 Nasal Cannula 3.00 07/28/22 16:40 98 Nasal Cannula 3.00 07/28/22 16:00 90 31 143/77 (99) 98 Nasal Cannula 3.00 07/28/22 15:32 95 Nasal Cannula 4.00 07/28/22 15:32 36.3 07/28/22 15:00 85 31 131/72 (91) 98 Nasal Cannula 3.00 07/28/22 14:00 84 18 129/97 (108) 99 Nasal Cannula 3.00 07/28/22 13:00 81 14 132/70 (90) 100 Nasal Cannula 3.00 07/28/22 12:17 82 07/28/22 12:15 92 Nasal Cannula 3.00 07/28/22 12:04 37.8 07/28/22 12:00 92 15 138/72 (94) 99 Nasal Cannula 3.00 07/28/22 11:06 39.2 97 93 36 07/28/22 11:01 96 07/28/22 11:00 96 26 133/65 (87) 91 Nasal Cannula 3.00 07/28/22 10:48 95 Nasal Cannula 4.00 07/28/22 10:45 37.9 I & O 07/29/22 06:59 Intake Total 900 ml Output Total 1100 ml Balance -200 ml Height & Weight Height: 5'10.00" Weight: 187lbs. 2.0oz. 84.977232zm; 26.52 BMI Method:Estimated General Appearance: No Apparent Distress HEENT: PERRL/EOMI, Pharynx Normal Neck: Normal Inspection, Supple Respiratory: No Lungs Clear, No Normal Breath Sounds; Crackles Cardiovascular: Regular Rate, Rhythm, No Murmur, Normal Peripheral Pulses Capillary Refill: Less Than 3 Seconds Gastrointestinal: normal bowel sounds, soft, no organomegaly, tenderness Extremity: Other (right arm edema and erythema improving) Neurologic/Psychiatric: Alert Skin: Normal Color, Warm/Dry Results Lab Laboratory Tests 07/28/22 08:37 07/29/22 03:43 Assessment/Plan Assessment/Plan 1 ANDRE IVEY MD Jul 29, 2022 10:14
--- NOTE | 2022-07-29 10:30 | Speech Therapy Progress Note ---
Therapy Progress Note The clinician discussed the patient's current condition with the patient's RN regarding his appropriateness for completion in the scheduled modified barium swallow evaluation. Per RN, the patient is not appropriate for participation in the study on this date. ST will HOLD skilled treatment and evaluation on this date. The clinician requested contact from the RN/staff if the patient's status improves for participation. ST will continue to follow up with the patient for skilled dysphagia services. ZULAY CHAPARRO Jul 29, 2022 10:30
[2022-07-29] MEDS ORDERED: VANCOMYCIN 1250 MG/NS 250 ML PREMIX IV SCH (11:00)
--- NOTE | 2022-07-29 13:54 | Occupational Ther Daily Note ---
OT Current Status-Daily Note Subjective Supine with eyes closed, wakes to voice and sternal rub Mental Status/Objective Patient Orientation: Confused, Eyes Open does not follow commands, does not track movement w/ eyes, ADL-Treatment Therapy Code Descriptions/Definitions Functional [place] Measure: 0=Not Assessed/NA 4=Minimal Assistance 1=Total Assistance 5=Supervision or Setup 2=Maximal Assistance 6=Modified [place] 3=Moderate Assistance 7=Complete IndependenceSCALE: Activities may be completed with or without assistive devices. 8-Cmhwhcmaiu-vaulkls completes the activity by him/herself with no assistance from a helper. 5-Set-up or Clean-up Assistance-helper sets up or cleans up; patient completes activity. [place] assists only prior to or following the activity. 4-Supervision or Touching Assistance-helper provides verbal cues and/or touching/steadying and/or contact guard assistance as patient completes activity. Assistance may be provided throughout the activity or intermittently. 3-Partial/Moderate Assistance-helper does LESS THAN HALF the effort. [place] lift s, holds or supports trunk or limbs, but provides less than half the effort. 2-Substantial/Maximal Assistance-helper does MORE THAN HALF the effort. [place] lifts or holds trunk or limbs and provides more than half the effort. 3-Vkxcdnqjj-qocwkw does ALL the effort. Patient does none of the effort to complete the activity. Or, the assistance of 2 or more helpers is required for the patient to complete the activity. If activity was not attempted, code reason: 7-Patient Refused. 9-Not Applicable-not attempted and the patient did not perform the activity before the current illness, exacerbation or injury. 10-Not Attempted due to Environmental Limitations-(lack of equipment, weather restraints, etc.). 88-Not Attempted due to Medical Conditions or Safety Concerns. Other Treatment Assessed patient command following Purposeful ROM and visual tracking. [place] does not follow one step simple commands, Raises LUE w/ AAROM from OT, does not initiate RUE, patient continues to close eyes and opens left eye only at times. OT performed AAROM and sensation assessment w/ patietn , family presetn, Family discussing option of palliative care and LTC. Education OT Patient Education: Correct positioning, Purpose of tx/functional activities Teaching Recipient: Patient, Family Response to Teaching: Reinforcement Needed OT Cst Goals Cst Goals Eating (QC): 6 Oral Hygiene (QC): 6 Toileting Hygiene (QC): 6 Shower/Bathe Self (QC): 6 Upper Body Dressing (QC): 6 Lower Body Dressing (QC): 6 On/Off Footwear (QC): 6 1=Demonstrate adherence to instructed precautions during ADL tasks. 2=Patient will verbalize/demonstrate understanding of assistive devices/modifications for ADL. 3=Patient will improve strength/tolerance for activity to enable patient to per form ADL's. OT Education/Plan Problem List/Assessment Assessment: Decreased Activ Tolerance, Decreased Safety Aware, Decreased UE Strength, Dependent Transfers, Impaired Cognition, Impaired Coordination, Impair ed Self-Care Skills, Restricted Funct UE ROM Discharge Recommendations Plan/Recommendations: Continue POC Treatment Plan/Plan of Care Patient would benefit from OT for education, treatment and training to promote independence in ADL's, mobility, safety and/or upper extremity function for ADL's. Plan of Care: ADL Retraining, Functional Mobility, Group Exercise/Act as Ind, UE Funct Exercise/Act Treatment Duration: Jul 25, 2022 Frequency: 3 times per week (3-5 times per week) Agreement: Yes Rehab Potential: Guarded Time Start Time: 13:00 Stop Time: 13:11 DATE: Jul 29, 2022 Total Time Billed (hr/min): 11 Billed Treatment Time FA 11 min WILMER DYSON OT Jul 29, 2022 13:54
--- NOTE | 2022-07-29 14:10 | Progress Note - Hospitalist ---
ESTRELLITA HOPPER 07/29/22 1410: Subjective HPI/CC On Admission Date Seen by Provider: Jul 29, 2022 Luis Alberto Wiseman is a 77yo male whom presented due to fall occurring 3 days ago and constant stabbing right sided pain. Pt was walking up the stairs and fell backwards and landed on his right side. Pt has associated painful breathing w/ deep inspiration. Movement/exertion aggravates pain on right side, and pain medication has helped alleviate pain. Pt states that he has fallen a lot more recently. Pt son at bedside stated pt has been experiencing dizziness and loss of balance for the past several months. Son states pt is typically sharp mentally, but feels that he is altered due to pain medication. At this time patient was oriented to person and year. Pt denied Fever, Chills, N/V/D, Abdominal Pain, Chest Pain, Headache. Subjective/Events-last exam Pt was seen and assessed today. Pt seemed to be doing about the same as w/o any acute overnight events. Pt opened eyes and addressed my presence w/ sternal rub, but quickly closed his eyes to go back asleep. Per nurse, pt continuously moans and coughs. Suction has been attempted but secretions seem to be stuck in his throat. Pt was not able to participate in interview today. Focused Exam Lactate Level 07/28/22 11:00: Lactic Acid Level 1.08 Objective Exam Vital Signs Vital Signs Date Time Temp Pulse Resp B/P (MAP) Pulse Ox O2 Delivery O2 Flow Rate FiO2 07/29/22 12:42 76 07/29/22 12:00 36.6 07/29/22 11:00 14 143/73 (96) 98 Nasal Cannula 3.00 07/28/22 11:06 36 Capillary Refill : Less Than 3 Seconds General Appearance: No Apparent Distress Respiratory: No Accessory Muscle Use, No Respiratory Distress, Crackles Cardiovascular: Regular Rate, Rhythm, No Murmur, Normal Peripheral Pulses Gastrointestinal: Soft, Abnormal Bowel Sounds (Decreased); No Distended, No Guarding Extremity: Non Tender, Pedal Edema, Swelling Skin: Normal Color, Warm/Dry Results/Procedures Lab Laboratory Tests 07/29/22 03:43 Patient resulted labs reviewed. Imaging: Reviewed Imaging Films, Reviewed Imaging Report Assessment/Plan Assessment and Plan Assess & Plan/Chief Complaint Sepsis Secondary to Pneumonia Acute CHF Exacerbation SIRS +: Elevated Temp; Tachycardia; Elevated White Count CXR 07/28/22: failure pattern with increased congestion, edema and pleural fluid. Pneumonia superimposed could not be excluded in the appropriate clinical scenario BNP Ordered to Evaluate Fluid Overload Elevated BNP Blood Cultures Ordered- Awaiting Final Report Lactic Acid Ordered: Within normal Limits Continue IV Abx: Vancomycin, Cefepime, and Metronidazole IVF Held due to Volume Overload Discussed Further Intervention v. Palliative Care with Family Poor Prognosis Pt will need Lasix due to Volume Overload and NGT for Tube feeds Family was open to hearing options about Palliative care before making decision Hypoalbuminemia Continue to Monitor Metabolic Encephalopathy Delirum Alcohol W/D Continue Thiamine Supplementation B12 and Folate Levels within Normal Limits R. Superior and Inferior Pubic Fracture R. 4th, 5th, 6th Lateral Rib Fracture R. 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 Lasix added for volume overload. Oxygen requirement stable. Discussed feeding tube with family. Palliative care consulted, will address goals of care and treatment options. Discussed poor prognosis with family. Diagnosis/Problems Diagnosis/Problems (1) PNA (pneumonia) Status: Acute (2) CHF (congestive heart failure) Status: Chronic (3) Alcohol withdrawal Status: Acute Qualifiers: Qualified Codes: F10.931 - Alcohol use, unspecified with withdrawal delirium (4) Pelvic fracture (5) Rib fractures Status: Acute Qualifiers: Qualified Codes: S22.41XA - Multiple fractures of ribs, right side, initial encounter for closed fracture (6) Acute kidney injury superimposed on chronic kidney disease Status: Acute (7) HTN (hypertension) Status: Acute (8) T2DM (type 2 diabetes mellitus) Status: Acute Qualifiers: Qualified Codes: E11.649 - Type 2 diabetes mellitus with hypoglycemia without coma; 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 I reviewed and verified all information documented by the medical student and made modifications to such information, when appropriate. I personally performed the physical exam and medical decision making. ESTRELLITA HOPPER Jul 29, 2022 14:10 URBANO BOWEN MD Jul 29, 2022 18:34
--- NOTE | 2022-07-29 14:25 | Physical Therapy Progress Note ---
Therapy Progress Note Patient unable to participate with OT. Will attempt to work with patient tomorrow and progress per patient tolerance. VA MALCOLM PT Jul 29, 2022 14:25
[2022-07-29] MEDS: HALOPERIDOL 5 MG/ML (HALDOL) VIAL IM PRN ×2 (14:38→19:28)
[2022-07-29] MEDS: LORazepam INJ 2 MG/ML (ATIVAN) VIAL IV PRN (14:58)
[2022-07-29] MEDS: IRON SUCROSE 200 MG/10 ML (VENOFER) VIAL IV SCH (17:24)
[2022-07-29] MEDS ORDERED: FUROSEMIDE 40 MG/4 ML INJ (LASIX) IVP NR (17:45)
[2022-07-29 19:24] VITALS: BP 160/95
[2022-07-30 00:49] VITALS: BP 100/56
[2022-07-30] MEDS: meTOprolol 5 MG/5 ML (LOPRESSOR) VIAL IV SCH ×2 (00:59→06:30)
[2022-07-30] MEDS: metroNIDAZOLE 500MG/100ML IVPB 100 ML IV SCH (02:13)
[2022-07-30] MEDS: HALOPERIDOL 5 MG/ML (HALDOL) VIAL IM PRN (02:14)
[2022-07-30] MEDS: fentaNYL INJ 100 MCG/2 ML AMP IVP PRN (02:14)
[2022-07-30] MEDS: RT-ALBUTEROL SULF 2.5 MG/3 ML PRE-MIX VIAL INH SCH ×3 (03:18→09:37)
[2022-07-30] MEDS: CEFEPIME INJECTION 1,000 MG in NS (IVPB) 50 ML IV SCH (03:25)
[2022-07-30 03:35] VITALS: BP 146/63
[2022-07-30] MEDS: POTASSIUM BICARB 20 MEQ (EFFER-K) TABLET PO SCH (03:51)
[2022-07-30] MEDS: KCL 20 MEQ TAB (K-DUR) PO SCH (03:51)
[2022-07-30] MEDS: SUCRALFATE 1 GM (CARAFATE) TAB PO SCH ×2 (03:51→11:36)
[2022-07-30] MEDS: MULTIVIT W/MINERALS TAB (THERAGRAN M) PO SCH (03:53)
[2022-07-30] MEDS: THIAMINE 100 MG (VITAMIN B-1) TAB PO SCH (03:53)
[2022-07-30] MEDS: LORazepam INJ 2 MG/ML (ATIVAN) VIAL IV PRN (04:03)
[2022-07-30 05:57] LABS: BASOPHILS # (AUTO) 0.1 10^3/uL (0.0-0.1); BASOPHILS % (AUTO) 1 % (0-10); EOSINOPHILS # (AUTO) 0.1 10^3/uL (0.0-0.3); EOSINOPHILS % (AUTO) 1 % (0-10); HEMATOCRIT 23 % (40-54); LYMPHOCYTES # (AUTO) 0.7 10^3/uL (1.0-4.0); LYMPHOCYTES % (AUTO) 6 % (12-44); MEAN CORPUSCULAR HGB CONC 30 g/dL (32-36); MEAN CORPUSCULAR VOLUME 86 fL (80-99); MEAN PLATELET VOLUME 10.9 fL (9.0-12.2); MONOCYTES # (AUTO) 1.4 10^3/uL (0.0-1.0); MONOCYTES % (AUTO) 12 % (0-12); NEUTROPHILS # (AUTO) 9.5 10^3/uL (1.8-7.8); NEUTROPHILS % (AUTO) 77 % (42-75); PLATELET COUNT 404 10^3/uL (130-400); WHITE BLOOD COUNT 12.3 10^3/uL (4.3-11.0)
[2022-07-30 06:02] LABS: HEMOGLOBIN 6.9 g/dL (13.3-17.7); MEAN CORPUSCULAR HEMOGLOBIN 25 pg (25-34)
[2022-07-30 06:28] LABS: ANISOCYTOSIS SLIGHT; BAND NEUTROPHILS 1 %; BURR CELLS SLIGHT; ELLIPT/OVALOCYTES SLIGHT; EOSINOPHILS % (MANUAL) 1 %; HYPOCHROMASIA SLIGHT; LYMPHOCYTES % (MANUAL) 3 %; MONOCYTES % (MANUAL) 7 %; NEUTROPHILS % (MANUAL) 87 %; NUCLEATED RED BLOOD CELLS 1; POLYCHROMASIA SLIGHT; REACTIVE LYMPHOCYTES 1 %
[2022-07-30] MEDS: ENOXAPARIN 80 MG/0.8 ML (LOVENOX) SYR SC SCH (06:29)
[2022-07-30 06:38] LABS: ALBUMIN 2.7 GM/DL (3.2-4.5); POTASSIUM 4.2 MMOL/L (3.6-5.0)
[2022-07-30 06:39] LABS: CALCIUM 8.6 MG/DL (8.5-10.1)
[2022-07-30 06:40] LABS: TOTAL PROTEIN 5.2 GM/DL (6.4-8.2)
[2022-07-30 06:42] LABS: BILIRUBIN,TOTAL 0.7 MG/DL (0.1-1.0)
[2022-07-30 06:44] LABS: CREATININE SERUM 1.6 MG/DL (0.60-1.30)
[2022-07-30] MEDS: POTASSIUM CL 10MEQ/50ML IVPB 50 ML IV SCH (06:45)
[2022-07-30 06:46] LABS: BILIRUBIN,DIRECT 0.5 MG/DL (0.0-0.3); BILIRUBIN,INDIRECT 0.2 MG/DL
[2022-07-30 06:47] LABS: MAGNESIUM 1.8 MG/DL (1.6-2.4)
[2022-07-30] MEDS: inSUlin ASPART (NovoLOG) 1 UNIT/0.01 ML (CHARGE PER UNIT) SC SCH (06:49)
[2022-07-30] MEDS: MAGNESIUM 1 GM/100 ML IVPB 100 ML IV SCH ×3 (06:51→12:38)
[2022-07-30 08:04] VITALS: BP 123/59
--- NOTE | 2022-07-30 08:07 | Diagnostic Imaging Report ---
Indication: Pneumonia Frontal chest obtained at 5:09 a.m. and compared to 07/28/2022. Heart is mildly enlarged. There is central vascular congestion with some perihilar edema, with bibasilar infiltrates appearing similar to the prior study. There is no pneumothorax or significant pleural fluid. Impression: Cardiomegaly with central vascular congestion and edema and unchanged bibasilar infiltrates. Dictated by: Dictated on workstation # [id number]
[2022-07-30] MEDS: ACETAMINOPHEN 650 MG SUPP (TYLENOL) PR PRN (08:53)
[2022-07-30] MEDS: PANTOPRAZOLE 40 MG (PROTONIX) VIAL IV SCH (08:53)
[2022-07-30] MEDS: ZIPRASIDONE 20 MG INJ (GEODON) VIAL IM PRN (09:10)
[2022-07-30] MEDS: SACUBITRIL/VALSARTAN 24/26 MG (ENTRESTO) TABLET PO SCH (09:11)
[2022-07-30] MEDS: AMIODARONE 200 MG (CORDARONE) TAB PO SCH (09:11)
[2022-07-30] MEDS: predniSONE 5 MG TAB PO SCH (09:11)
[2022-07-30] MEDS: DOCUSATE SODIUM 100 MG (COLACE) CAP PO SCH (09:11)
[2022-07-30] MEDS: CLOPIDOGREL 75 MG (PLAVIX) TABLET PO SCH (09:21)
[2022-07-30] MEDS: SENNOSIDES 8.6 MG (SENOKOT) TAB PO SCH (09:21)
[2022-07-30] MEDS: FOLIC ACID 1 MG TAB PO SCH (09:21)
--- NOTE | 2022-07-30 10:20 | Occ Therapy Progress Note ---
Therapy Progress Note Family refuses therapy session. Roles and benefits of therapy provided WILMER DYSON OT Jul 30, 2022 10:20
--- NOTE | 2022-07-30 10:22 | Physical Therapy Progress Note ---
Therapy Progress Note Patient currently writhing in bed with family present. RN present to issue medication. Family declined PT on this date. This PT assisted RN on repositioning patient for his safety. No treatment rendered. SARAN COOK PT Jul 30, 2022 10:22
[2022-07-30 11:36] VITALS: BP 122/62
[2022-07-30] MEDS ORDERED: morphine (ROXINOL) 10 MG/0.5 ML oral conc 0.5 ML PO PRN (11:45)
[2022-07-30] MEDS ORDERED: RT-ALBUTEROL/IPRATROPIUM 3 ML (DUONEB) VIAL INH PRN (11:45)
[2022-07-30] MEDS ORDERED: BISACODYL 10 MG SUPP (DULCOLAX) PR PRN (11:45)
[2022-07-30] MEDS ORDERED: LORazepam 1 MG (ATIVAN) TAB SL PRN (11:45)
[2022-07-30] MEDS ORDERED: GLYCOPYRROLATE 0.2 MG/ML (ROBINUL) 2 ML VIAL IV PRN (11:45)
[2022-07-30] MEDS ORDERED: morphine INJ 4 MG/ML 1 ML (VIAL/SYRINGE) IV PRN (11:45)
[2022-07-30] MEDS ORDERED: LORazepam INJ 2 MG/ML (ATIVAN) VIAL IVP PRN (11:45)
[2022-07-30] MEDS ORDERED: ATROPINE 1% OPHTHALMIC SOLN 2 ML SL PRN (11:45)
[2022-07-30] MEDS ORDERED: ARTIFICAL TEARS 0.4 ML UNIT DOSE (REFRESH PLUS) OU PRN (11:45)
[2022-07-30] MEDS ORDERED: ACETAMINOPHEN 650 MG SUPP (TYLENOL) PR PRN ×2 (11:45)
[2022-07-30] MEDS ORDERED: ZIPRASIDONE 20 MG INJ (GEODON) VIAL IM PRN (11:45)
[2022-07-30] MEDS ORDERED: ONDANSETRON 4 MG/2 ML (SDV) Z0FRAN IVP PRN (11:45)
[2022-07-30] MEDS ORDERED: PROMETHAZINE INJ 25 MG/ML (PHENERGAN) AMP IVP PRN (11:45)
[2022-07-30] MEDS ORDERED: WATER (STERILE) FOR INJ 10 ML BTL INJ SCH (11:45)
[2022-07-30] MEDS ORDERED: SCOPOLAMINE 1.5 MG (TRANSDERM-SCOP) PATCH TOP SCH (12:00)
--- NOTE | 2022-07-30 12:09 | Speech Therapy Progress Note ---
Therapy Progress Note ST re-attempted skilled dysphagia treatment on this date. At this time, the RN stated the patient remains inappropriate to participate in the skilled dysphagia treatment session. ST to re-attempt the skilled treatment session as the patient is able to actively, appropriately participate. ZULAY CHAPARRO Jul 30, 2022 12:09
--- NOTE | 2022-07-30 13:02 | Progress Note ---
JEFF GRUBBS 07/30/22 1302: Subjective Date Seen by a Provider: Jul 30, 2022 Subjective/Events-last exam Luis Alberto Wiseman is a 77 year old male who was admitted after a fall. He was found to have a pelvic fracture and several rib fractures, old and new. Therapy was attempted but he was very debilitated. Due to his poor functional status, inpatient rehab was not an option. Instead, retirement facility placement was pursued. He subsequently developed alcohol withdrawal. This was severe and difficult to manage. He was transferred to ICU for closer monitoring and IV medications. He improved but then became septic with pneumonia. He was thought to be aspirating. Speech therapy attempted to perform an evaluation but he was unable to participate. The options were discussed with family, including continued aggressive care with antibiotics, diuretics, and feeding tube placement. Palliative care was also consulted to help assess goals of care and t o offer supportive, comfort-based treatment options. His course was also complicated by acute kidney injury on chronic kidney disease. He also had acute on chronic iron deficiency anemia. He was given IV iron. He had endoscopies with Dr. Morrison in May which showed gastritis. Today pt was sedated and appeared to be in poor condition, at times moving hands and hips but sedated. Family was gathered with exception of pt's , though family noted they had discussed the current situation with her and she was in agreement with their decision. The pt's condition and numerous health problems were discussed and explained to the family. Additionally, we discussed what the course of continued aggressive care might look like, the low probability of full recovery, and the limited state that aggressive care could bring him back to. The family was already strongly considering moving patient to comfort care, were reaffirmed in this decision by this discussion, and ultimately decided to switch patient course to comfort care. Review of Systems Pt encephalopathic and sedated, unable to complete Focused Exam Lactate Level 07/28/22 11:00: Lactic Acid Level 1.08 Objective Exam Last Set of Vital Signs Vital Signs Date Time Temp Pulse Resp B/P (MAP) Pulse Ox O2 Delivery O2 Flow Rate FiO2 07/30/22 11:36 36.6 77 18 122/62 (82) 95 Nasal Cannula 3.00 07/28/22 11:06 36 Capillary Refill : Less Than 3 Seconds I&O Intake and Output 07/30/22 00:00 Intake Total 1500 ml Output Total 2375 ml Balance -875 ml Intake Oral 0 ml IV Total 1500 ml Output Urine Total 2375 ml # Voids 2 Other physical findings PE deferred 2/ nature of family conversation and decision Results Lab Laboratory Tests 07/29/22 16:56: Glucometer 187H 07/29/22 20:04: Glucometer 180H 07/30/22 05:11: White Blood Count 12.3H, Red Blood Count 2.71L, Hemoglobin 6.9*L, Hematocrit 23L , Mean Corpuscular Volume 86, Mean Corpuscular Hemoglobin 25, Mean Corpuscular Hemoglobin Concent 30L, Red Cell Distribution Width 18.5H, Platelet Count 404H, Mean Platelet Volume 10.9, Immature Granulocyte % (Auto) 4, Neutrophils (%) (Auto) 77H, Lymphocytes (%) (Auto) 6L, Monocytes (%) (Auto) 12, Eosinophils (%) (Auto) 1, Basophils (%) (Auto) 1, Neutrophils # (Auto) 9.5H, Lymphocytes # (Auto) 0.7L, Monocytes # (Auto) 1.4H, Eosinophils # (Auto) 0.1, Basophils # (Auto) 0.1, Immature Granulocyte # (Auto) 0.5H, Neutrophils % (Manual) 87, Lymphocytes % (Manual) 3, Monocytes % (Manual) 7, Eosinophils % (Manual) 1, Band Neutrophils 1, Nucleated Red Blood Cells 1, Reactive Lymphocytes 1, Polychromasia SLIGHT, Hypochromasia SLIGHT, Anisocytosis SLIGHT, Judith Cells SLIGHT, Elliptocytes SLIGHT, Sodium Level 143, Potassium Level 4.2, Chloride Level 113H, Carbon Dioxide Level 15L, Anion Gap 15H, Blood Urea Nitrogen 20H, Creatinine 1.60H, Estimat Glomerular Filtration Rate 44, BUN/Creatinine Ratio 1 3, Glucose Level 274H, Calcium Level 8.6, Magnesium Level 1.8, Total Bilirubin 0.7, Direct Bilirubin 0.5H, Indirect Bilirubin 0.2, Aspartate Amino Transf (AST/SGOT) 25, Alanine Aminotransferase (ALT/SGPT) 14, Alkaline Phosphatase 121, Total Protein 5.2L, Albumin 2.7L 07/30/22 10:55: Glucometer 266H Microbiology 07/28/22 Urine Culture - Final, Complete YEAST 07/28/22 Blood Culture - Preliminary, Resulted No growth Radiology No official report on 07/30 CXR but demonstrates increased BL pleural effusions and pulmonary vascular congestion. Assessment/Plan Assessment/Plan Assess & Plan/Chief Complaint CC: Encephalopathy A/P Family has elected to switch pt to comfort care, will d/c all current medications/support and provide sedation/analgesia to make pt comfortable Encephalopathy Delirium Alcohol withdrawal TME vs. Wernicke Encephalopathy - poor prognosis for recovery CHF exacerbation - increased pulm vascular congestion and worsening pleural effusions BL Sepsis (resolved) - 2/2 PNA vs. complicated UTI Anemia aFib CAD Pelvic fractures Rib fractures RICHARD on CKD RA IDDM HTN - limited ability to treat without feeding tube in context of other problems preventing safe swallowing - Family elected for comfort care Diagnosis/Problems Diagnosis/Problems (1) Encephalopathy (2) Afib (3) CAD (coronary artery disease) (4) Rheumatoid arthritis (5) UTI (urinary tract infection) Status: Acute (6) CHF (congestive heart failure) Status: Acute (7) Poor prognosis Status: Acute (8) PNA (pneumonia) Status: Acute (9) Sepsis Status: Acute (10) Pelvic fracture (11) Debility Status: Acute (12) Alcohol withdrawal Status: Acute Qualifiers: Qualified Codes: F10.931 - Alcohol use, unspecified with withdrawal delirium (13) HTN (hypertension) Status: Acute (14) Acute kidney injury superimposed on chronic kidney disease Status: Acute (15) Rib fractures Status: Acute Qualifiers: Qualified Codes: S22.41XA - Multiple fractures of ribs, right side, initial encounter for closed fracture (16) Anemia Status: Acute Qualifiers: Qualified Codes: D50.0 - Iron deficiency anemia secondary to blood loss (chronic) (17) Pelvic fracture Status: Acute (18) Status post fall Status: Acute (19) Insulin dependent diabetes mellitus Status: Chronic (20) Hyperglycemia due to type 2 diabetes mellitus Status: Acute TATIANA HASSAN DO 07/31/22 0510: Subjective Time Seen by a Provider: 11:15 Supervisory-Addendum Brief Verification & Attestation Participated in pt care: history, MDM, physical Personally performed: exam, history, MDM, supervision of care Care discussed with: Medical Student Procedures: n/a Results interpretation: Verified all documentation Verification and Attestation of Medical Student E/M Service A medical student performed and documented this service in my presence. I reviewed and verified all information documented by the medical student and made modifications to such information, when appropriate. I personally performed the physical exam and medical decision making. Tatiana Hassan, Jul 31, 2022,05:10 JEFF GRUBBS Jul 30, 2022 13:02 TATIANA HASSAN DO Jul 31, 2022 05:10
[2022-07-30] MEDS: SALIVA SUBSTITUTE 236 ML SPRAY (MOUTHKOTE) MM PRN ×2 (13:55→15:35)
--- NOTE | 2022-07-30 21:18 | Discharge Summary ---
Diagnosis/Chief Complaint Date of Admission Jul 16, 2022 at 14:21 Date of Discharge Discharge Diagnosis Encephalopathy Alcohol withdrawal AF DM HTN RICHARD Anemia Pelvic fractures Discharge Summary Discharge Physical Examination Allergies: Coded Allergies: hydrocodone (Verified Allergy, Intermediate, RASH; PT HAS TOLERATED MORPHINE IN PAST, 07/30/22) oxycodone (Verified Allergy, Intermediate, RASH; PT HAS TOLERATED MORPHINE IN PAST, 07/30/22) formaldehyde (Verified Allergy, Unknown, 07/16/22) Vitals & I&Os Vital Signs Date Time Temp Pulse Resp B/P (MAP) Pulse Ox O2 Delivery O2 Flow Rate FiO2 07/30/22 19:50 Room Air 07/30/22 12:33 88 07/30/22 11:36 36.6 18 122/62 (82) 95 3.00 07/28/22 11:06 36 General Appearance: Other (comatose) Respiratory: Other (coarseness) Hospital Course Was the Problem List Reviewed?: Yes Luis Alberto Wiseman is a 77 year old male who was admitted after a fall. He was found to have a pelvic fracture and several rib fractures, old and new. Therapy was attempted but he was very debilitated. Due to his poor functional status, inpatient rehab was not an option. Instead, snf facility placement was pursued. He subsequently developed alcohol withdrawal. This was severe and difficult to manage. He was transferred to ICU for closer monitoring and IV medications. He improved but then became septic with pneumonia. He was thought to be aspirating. Speech therapy attempted to perform an evaluation but he was unable to participate. The options were discussed with family, including continued aggressive care with antibiotics, diuretics, and feeding tube placement. Palliative care was also consulted to help assess goals of care and to offer supportive, comfort-based treatment options. His course was also complicated by acute kidney injury on chronic kidney disease. He also had acute on chronic iron deficiency anemia. He was given IV iron. He had endoscopies with Dr. Morrison in May which showed gastritis. Today pt was sedated and appeared to be in poor condition, at times moving hands and hips but sedated. Family was gathered with exception of pt's , though family noted they had discussed the current situation with her and she was in agreement with their decision. The pt's condition and numerous health problems were discussed and explained to the family. Additionally, we discussed what the course of continued aggressive care might look like, the low probability of full recovery, and the limited state that aggressive care could bring him back to. The family was already strongly considering moving patient to comfort care, were reaffirmed in this decision by this discussion, and ultimately decided to switch patient course to comfort care. Labs (last 24 hrs) Laboratory Tests 07/16/22 11:20: White Blood Count 11.7H, Red Blood Count 3.90L, Hemoglobin 10.1L, Hematocrit 33L , Mean Corpuscular Volume 84, Mean Corpuscular Hemoglobin 26, Mean Corpuscular Hemoglobin Concent 31L, Red Cell Distribution Width 18.6H, Platelet Count 233, Mean Platelet Volume 10.6, Immature Granulocyte % (Auto) 1, Neutrophils (%) (Auto) 83H, Lymphocytes (%) (Auto) 4L, Monocytes (%) (Auto) 11, Eosinophils (%) (Auto) 1, Basophils (%) (Auto) 1, Neutrophils # (Auto) 9.7H, Lymphocytes # (Auto) 0.5L, Monocytes # (Auto) 1.2H, Eosinophils # (Auto) 0.1, Basophils # (Auto) 0.1, Immature Granulocyte # (Auto) 0.1, Neutrophils % (Manual) 85, Lymphocytes % (Manual) 4, Monocytes % (Manual) 8, Eosinophils % (Manual) 2, Basophils % (Manual) 1, Polychromasia SLIGHT, Anisocytosis MODERATE, Sodium Level 138, Potassium Level 4.7, Chloride Level 105, Carbon Dioxide Level 21, Anion Gap 12, Blood Urea Nitrogen 32H, Creatinine 1.85H, Estimat Glomerular Filtration Rate 37, BUN/Creatinine Ratio 17, Glucose Level 214H, Calcium Level 8.8, Corrected Calcium 9.2, Total Bilirubin 0.6, Aspartate Amino Transf (AST/SGOT) 28, Alanine Aminotransferase (ALT/SGPT) 35, Alkaline Phosphatase 169H , Troponin I < 0.028, B-Type Natriuretic Peptide 602.6H, Total Protein 6.2L, Albumin 3.5, Lipase 12, Serum Alcohol < 10 07/16/22 11:29: Glucometer 199H 07/16/22 16:00: Glucometer 325H 07/16/22 20:13: Glucometer 279H 07/17/22 05:10: Glucometer 110 07/17/22 05:20: White Blood Count 11.5H, Red Blood Count 3.68L, Hemoglobin 9.4L, Hematocrit 31L, Mean Corpuscular Volume 83, Mean Corpuscular Hemoglobin 26, Mean Corpuscular Hemoglobin Concent 31L, Red Cell Distribution Width 18.3H, Platelet Count 223, Mean Platelet Volume 10.8, Immature Granulocyte % (Auto) 1, Neutrophils (%) (Auto) 78H, Lymphocytes (%) (Auto) 6L, Monocytes (%) (Auto) 14H, Eosinophils (%) (Auto) 1, Basophils (%) (Auto) 0, Neutrophils # (Auto) 9.0H, Lymphocytes # (Auto) 0.7L, Monocytes # (Auto) 1.6H, Eosinophils # (Auto) 0.1, Basophils # (Auto) 0.1, Immature Granulocyte # (Auto) 0.1, Sodium Level 139, Potassium Level 4.4, Chloride Level 107, Carbon Dioxide Level 20L, Anion Gap 12, Blood Urea Nitrogen 28H, Creatinine 1.55H, Estimat Glomerular Filtration Rate 46, BUN/Creatinine Ratio 18, Glucose Level 114H, Calcium Level 8.9, Magnesium Level 1.7 07/17/22 09:16: Iron Level 20L, Total Iron Binding Capacity 297, Unsaturated Iron Binding Capacity 277, Transferrin % Saturation 7L, Ferritin 63.1 07/17/22 10:48: Glucometer 185H 07/17/22 15:59: Glucometer 367H 07/17/22 22:01: Glucometer 544*H 07/18/22 03:05: Glucometer 190H 07/18/22 05:00: White Blood Count 9.2, Red Blood Count 3.54L, Hemoglobin 9.1L, Hematocrit 29L, Mean Corpuscular Volume 82, Mean Corpuscular Hemoglobin 26, Mean Corpuscular Hemoglobin Concent 31L, Red Cell Distribution Width 18.2H, Platelet Count 242, Mean Platelet Volume 10.8, Immature Granulocyte % (Auto) 1, Neutrophils (%) (Auto) 81H, Lymphocytes (%) (Auto) 7L, Monocytes (%) (Auto) 11, Eosinophils (%) (Auto) 0, Basophils (%) (Auto) 0, Neutrophils # (Auto) 7.4, Lymphocytes # (Auto) 0.6L, Monocytes # (Auto) 1.0, Eosinophils # (Auto) 0.0, Basophils # (Auto) 0.0, Immature Granulocyte # (Auto) 0.1, Sodium Level 137, Potassium Level 3.8, Ch [place]or[place] Level 104, Carbon Dioxide Level 21, Anion Gap 12, Blood Urea Nitrogen 31H , Creatinine 1.61H, Estimat Glomerular Filtration Rate 44, BUN/Creatinine Ratio 19, Glucose Level 166H, Calcium Level 9.1, Magnesium Level 1.8 07/18/22 06:41: Glucometer 209H 07/18/22 11:04: Glucometer 142H 07/18/22 15:37: Glucometer 231H 07/18/22 20:50: Glucometer 396H 07/19/22 05:28: Glucometer 56*L 07/19/22 05:40: White Blood Count 9.4, Red Blood Count 3.37L, Hemoglobin 8.6L, Hematocrit 28L, Mean Corpuscular Volume 82, Mean Corpuscular Hemoglobin 26, Mean Corpuscular Hemoglobin Concent 31L, Red Cell Distribution Width 18.2H, Platelet Count 252, Mean Platelet Volume 10.8, Immature Granulocyte % (Auto) 1, Neutrophils (%) (Auto) 79H, Lymphocytes (%) (Auto) 7L, Monocytes (%) (Auto) 13H, Eosinophils (%) (Auto) 1, Basophils (%) (Auto) 0, Neutrophils # (Auto) 7.3, Lymphocytes # (Auto) 0.6L, Monocytes # (Auto) 1.2H, Eosinophils # (Auto) 0.1, Basophils # (Auto) 0.0, Immature Granulocyte # (Auto) 0.1, Sodium Level 139, Potassium Level 3.6, Chloride Level 103, Carbon Dioxide Level 22, Anion Gap 14, Blood Urea Nitrogen 33H, Creatinine 1.52H, Estimat Glomerular Filtration Rate 47, BUN/Creatinine Ratio 22, Glucose Level 50*L, Calcium Level 8.9, Magnesium Level 1.7 07/19/22 06:35: Glucometer 77 07/19/22 08:22: Glucometer 83 07/19/22 12:08: Glucometer 125H 07/19/22 16:20: Glucometer 250H 07/19/22 20:21: Glucometer 289H 07/20/22 05:40: Glucometer 106, White Blood Count 8.2, Red Blood Count 3.35L, Hemoglobin 8.6L, Hematocrit 27L, Mean Corpuscular Volume 82, Mean Corpuscular Hemoglobin 26, Mean Corpuscular Hemoglobin Concent 31L, Red Cell Distribution Width 18.0H, Platelet Count 250, Mean Platelet Volume 10.3, Immature Granulocyte % (Auto) 1, Neutrophils (%) (Auto) 77H, Lymphocytes (%) (Auto) 7L, Monocytes (%) (Auto) 14H, Eosinophils (%) (Auto) 1, Basophils (%) (Auto) 0, Neutrophils # (Auto) 6.3, Lymphocytes # (Auto) 0.6L, Monocytes # (Auto) 1.1H, Eosinophils # (Auto) 0.1, Basophils # (Auto) 0.0, Immature Granulocyte # (Auto) 0.1, Sodium Level 135, Potassium Level 4.0, Chloride Level 100, Carbon Dioxide Level 23, Anion Gap 12, Blood Urea Nitrogen 33H, Creatinine 1.82H, Estimat Glomerular Filtration Rate 38, BUN/Creatinine Ratio 18, Glucose Level 101, Calcium Level 8.7, Magnesium Level 2.1 07/20/22 11:00: Glucometer 132H 07/20/22 16:00: Glucometer 166H, Urine Color YELLOW, Urine Clarity CLEAR, Urine pH 5.5, Urine Specific [place] 1.025H, Urine Protein 1+H, Urine Glucose (UA) 2+H, Urine Ketones NEGATIVE, Urine Nitrite NEGATIVE, Urine Bilirubin NEGATIVE, Urine Urobilinogen 0.2, Urine Leukocyte Esterase NEGATIVE, Urine RBC (Auto) TRACE-IH, Urine RBC NONE, Urine WBC RARE, Urine Crystals PRESENTH, Urine Amorphous Sediment FEW AMBAR URATESH, Urine Bacteria FEWH, Urine Casts NONE, Urine Mucus NEGATIVE, Urine Culture Indicated NO 07/20/22 20:49: Glucometer 316H 07/21/22 05:38: White Blood Count 9.8, Red Blood Count 3.63L, Hemoglobin 9.2L, Hematocrit 30L, Mean Corpuscular Volume 81, Mean Corpuscular Hemoglobin 25, Mean Corpuscular Hemoglobin Concent 31L, Red Cell Distribution Width 17.7H, Platelet Count 293, Mean Platelet Volume 10.4, Immature Granulocyte % (Auto) 1, Neutrophils (%) (Auto) 79H, Lymphocytes (%) (Auto) 6L, Monocytes (%) (Auto) 13H, Eosinophils (%) (Auto) 1, Basophils (%) (Auto) 0, Neutrophils # (Auto) 7.8, Lymphocytes # (Auto) 0.6L, Monocytes # (Auto) 1.3H, Eosinophils # (Auto) 0.1, Basophils # (Auto) 0.0, Immature Granulocyte # (Auto) 0.1, Sodium Level 138, Potassium Level 4.2, Chloride Level 102, Carbon Dioxide Level 25, Anion Gap 11, Blood Urea Nitrogen 31H, Creatinine 1.65H, Estimat Glomerular Filtration Rate 43, BUN/Creatinine Ratio 19, Glucose Level 136H, Calcium Level 8.7, Magnesium Level 1.9 07/21/22 05:46: Glucometer 131H 07/21/22 11:18: Glucometer 98 07/21/22 15:55: Glucometer 142H 07/21/22 20:23: Glucometer 228H 07/22/22 05:38: White Blood Count 10.2, Red Blood Count 3.48L, Hemoglobin 8.9L, Hematocrit 29L, Mean Corpuscular Volume 83, Mean Corpuscular Hemoglobin 26, Mean Corpuscular Hemoglobin Concent 31L, Red Cell Distribution Width 18.0H, Platelet Count 307, Mean Platelet Volume 10.3, Immature Granulocyte % (Auto) 1, Neutrophils (%) (Auto) 77H, Lymphocytes (%) (Auto) 7L, Monocytes (%) (Auto) 13H, Eosinophils (%) (Auto) 1, Basophils (%) (Auto) 0, Neutrophils # (Auto) 7.8, Lymphocytes # (Auto) 0.7L, Monocytes # (Auto) 1.4H, Eosinophils # (Auto) 0.1, Basophils # (Auto) 0.0, Immature Granulocyte # (Auto) 0.1, Neutrophils % (Manual) 83, Lymphocytes % (Manual) 10, Monocytes % (Manual) 7, Platelet Estimate ADEQUATE, Anisocytosis SLIGHT, Sodium Level 140, Potassium Level 3.9, Chloride Level 103, Carbon Dioxide Level 25, Anion Gap 12, Blood Urea Nitrogen 29H, Creatinine 1.46H, Estimat Glomerular Filtration Rate 50, BUN/Creatinine Ratio 20, Glucose Level 158H, Calcium Level 8.9, Magnesium Level 2.0 07/22/22 11:13: Glucometer 167H 07/22/22 15:36: Glucometer 239H 07/22/22 20:39: Glucometer 275H 07/23/22 05:19: Glucometer 122H 07/23/22 05:27: White Blood Count 11.2H, Red Blood Count 3.20L, Hemoglobin 8.1L, Hematocrit 27L, Mean Corpuscular Volume 83, Mean Corpuscular Hemoglobin 25, Mean Corpuscular Hemoglobin Concent 30L, Red Cell Distribution Width 18.0H, Platelet Count 332, Mean Platelet Volume 10.5, Immature Granulocyte % (Auto) 1, Neutrophils (%) (Auto) 75, Lymphocytes (%) (Auto) 7L, Monocytes (%) (Auto) 15H, Eosinophils (%) (Auto) 1, Basophils (%) (Auto) 0, Neutrophils # (Auto) 8.4H, Lymphocytes # (Auto) 0.8L, Monocytes # (Auto) 1.7H, Eosinophils # (Auto) 0.1, Basophils # (Auto) 0.0, Immature Granulocyte # (Auto) 0.1, Sodium Level 143, Potassium Level 3.7, Chloride Level 107, Carbon Dioxide Level 26, Anion Gap 10, Blood Urea Nitrogen 29H, Creatinine 1.49H, Estimat Glomerular Filtration Rate 48, BUN/Creatinine Ratio 19, Glucose Level 114H, Calcium Level 8.7, Magnesium Level 1.9 07/23/22 11:14: Glucometer 114H 07/23/22 15:23: Glucometer 116H 07/23/22 20:17: Glucometer 280H 07/24/22 04:16: Sodium Level 141, Potassium Level 4.2, Chloride Level 109H, Carbon Dioxide Level 21, Anion Gap 11, Blood Urea Nitrogen 36H, Creatinine 1.67H, Estimat Glomerular Filtration Rate 42, BUN/Creatinine Ratio 22, Glucose Level 206H, Calcium Level 8.5, Magnesium Level 2.2 07/24/22 04:21: White Blood Count 9.3, Red Blood Count 3.13L, Hemoglobin 8.0L, Hematocrit 26L, Mean Corpuscular Volume 83, Mean Corpuscular Hemoglobin 26, Mean Corpuscular Hemoglobin Concent 31L, Red Cell Distribution Width 18.0H, Platelet Count 331, Mean Platelet Volume 11.0, Immature Granulocyte % (Auto) 1, Neutrophils (%) (Auto) 75, Lymphocytes (%) (Auto) 9L, Monocytes (%) (Auto) 14H, Eosinophils (%) (Auto) 2, Basophils (%) (Auto) 0, Neutrophils # (Auto) 6.9, Lymphocytes # (Auto) 0.8L, Monocytes # (Auto) 1.3H, Eosinophils # (Auto) 0.2, Basophils # (Auto) 0.0, Immature Granulocyte # (Auto) 0.1 07/24/22 05:24: Glucometer 183H 07/24/22 09:27: Blood Gas Puncture Site RIGHT RADIAL, Blood Gas Patient Temperature 37.1, Arterial Blood pH 7.47H, Arterial Blood Partial Pressure CO2 34L, Arterial Blood Partial Pressure O2 65L, Arterial Blood HCO3 25, Arterial Blood Total CO2 25.8, Arterial Blood Oxygen Saturation 91L, Arterial Blood Base Excess 1.4, Derrick Test POSITIVE, Blood Gas Ventilator Setting NO, Blood Gas Inspired Oxygen 3% 07/24/22 10:47: Glucometer 109 07/24/22 15:45: Glucometer 125H 07/24/22 20:38: Glucometer 234H 07/25/22 03:43: White Blood Count 11.0, Red Blood Count 3.04L, Hemoglobin 7.7L, Hematocrit 26L, Mean Corpuscular Volume 84, Mean Corpuscular Hemoglobin 25, Mean Corpuscular Hemoglobin Concent 30L, Red Cell Distribution Width 17.7H, Platelet Count 324, Mean Platelet Volume 10.5, Immature Granulocyte % (Auto) 1, Neutrophils (%) (Auto) 79H, Lymphocytes (%) (Auto) 6L, Monocytes (%) (Auto) 12, Eosinophils (%) (Auto) 1, Basophils (%) (Auto) 0, Neutrophils # (Auto) 8.7H, Lymphocytes # (Auto) 0.7L, Monocytes # (Auto) 1.4H, Eosinophils # (Auto) 0.1, Basophils # (Auto) 0.0, Immature Granulocyte # (Auto) 0.1, Sodium Level 142, Potassium Level 3.8, Chloride Level 111H, Carbon Dioxide Level 20L, Anion Gap 11, Blood Urea Nitrogen 28H, Creatinine 1.45H, Estimat Glomerular Filtration Rate 50, BUN/Creatinine Ratio 19, Glucose Level 153H, Calcium Level 8.3L, Magnesium Level 1.9, Thyroid Stimulating Hormone (TSH) 1.36, Lyme Disease Screen IgG & IgM Ab 0.02, Lyme Antibody Interpretation Negative, Ehrlichia chaffeensis IgG Antibody <1:16, Ehrlichia chaffeensis IgM Antibody <1:10, Spotted Fever Group IgG Antibody <1:16, Spotted Fever Group IgM Antibody <1:10, [place] Antibody <1:20 07/25/22 10:08: Glucometer 95 07/25/22 16:49: Glucometer 162H 07/25/22 20:52: Glucometer 168H 07/26/22 03:59: White Blood Count 13.5H, Red Blood Count 2.98L, Hemoglobin 7.5L, Hematocrit 25L, Mean Corpuscular Volume 84, Mean Corpuscular Hemoglobin 25, Mean Corpuscular Hemoglobin Concent 30L, Red Cell Distribution Width 18.0H, Platelet Count 334, Mean Platelet Volume 10.7, Immature Granulocyte % (Auto) 1, Neutrophils (%) (Auto) 82H, Lymphocytes (%) (Auto) 5L, Monocytes (%) (Auto) 12, Eosinophils (%) (Auto) 1, Basophils (%) (Auto) 0, Neutrophils # (Auto) 11.0H, Lymphocytes # (Auto) 0.7L, Monocytes # (Auto) 1.6H, Eosinophils # (Auto) 0.1, Basophils # (Auto) 0.0, Immature Granulocyte # (Auto) 0.1, Sodium Level 141, Potassium Level 3.9, Chloride Level 112H, Carbon Dioxide Level 19L, Anion Gap 10, Blood Urea Nitrogen 21H, Creatinine 1.30, Estimat Glomerular Filtration Rate 57, BUN/Creatinine Ratio 16, Glucose Level 190H, Calcium Level 8.3L, Magnesium Level 2.1, Vitamin B12 Level 441, Folate 8.8 07/26/22 05:36: Glucometer 182H 07/26/22 10:44: Glucometer 135H 07/26/22 15:16: Glucometer 118H 07/26/22 17:33: Glucometer 134H 07/27/22 03:28: White Blood Count 14.0H, Red Blood Count 2.86L, Hemoglobin 7.2L, Hematocrit 24L, Mean Corpuscular Volume 84, Mean Corpuscular Hemoglobin 25, Mean Corpuscular Hemoglobin Concent 30L, Red Cell Distribution Width 18.2H, Platelet Count 356, Mean Platelet Volume 11.1, Immature Granulocyte % (Auto) 1, Neutrophils (%) (Auto) 84H, Lymphocytes (%) (Auto) 5L, Monocytes (%) (Auto) 9, Eosinophils (%) (Auto) 1, Basophils (%) (Auto) 0, Neutrophils # (Auto) 11.7H, Lymphocytes # (Auto) 0.7L, Monocytes # (Auto) 1.3H, Eosinophils # (Auto) 0.1, Basophils # (Auto) 0.0, Immature Granulocyte # (Auto) 0.2H, Sodium Level 142, Potassium Level 3.8, Chloride Level 115H, Carbon Dioxide Level 19L, Anion Gap 8, Blood Urea Nitrogen 19H, Creatinine 1.25, Estimat Glomerular Filtration Rate 60, BUN/Creatinine Ratio 15, Glucose Level 85, Calcium Level 8.0L, Magnesium Level 1.6 07/27/22 10:32: Glucometer 58*L 07/27/22 10:39: Glucometer 64L 07/27/22 11:45: Glucometer 109 07/27/22 16:02: Glucometer 160H 07/27/22 21:05: Glucometer 285H 07/28/22 05:56: Glucometer 255H 07/28/22 08:37: White Blood Count 14.1H, Red Blood Count 2.86L, Hemoglobin 7.1L, Hematocrit 23L, Mean Corpuscular Volume 82, Mean Corpuscular Hemoglobin 25, Mean Corpuscular Hemoglobin Concent 31L, Red Cell Distribution Width 17.9H, Platelet Count 415H, Mean Platelet Volume 10.8, Sodium Level 138, Potassium Level 3.9, Chloride Level 111H, Carbon Dioxide Level 19L, Anion Gap 8, Blood Urea Nitrogen 16, Creatinine 1.54H, Estimat Glomerular Filtration Rate 46, BUN/Creatinine Ratio 10, Glucose Level 204H, Calcium Level 8.0L, B-Type Natriuretic Peptide 3686.2H 07/28/22 11:00: Lactic Acid Level 1.08 07/28/22 11:10: Total Bilirubin 0.7, Direct Bilirubin 0.4H, Indirect Bilirubin 0.3, Aspartate Amino Transf (AST/SGOT) 23, Alanine Aminotransferase (ALT/SGPT) 18, Alkaline Phosphatase 131, Ammonia 17, Total Creatine Kinase 111, Total Protein 5.1L, Albumin 2.5L, Procalcitonin 0.61H 07/28/22 11:15: Urine Color YELLOW, Urine Clarity CLOUDY, Urine pH 5.5, Urine Specific [place] 1.025H, Urine Protein 2+H, Urine Glucose (UA) 3+H, Urine Ketones NEGATIVE, Urine Nitrite NEGATIVE, Urine Bilirubin NEGATIVE, Urine Urobilinogen 0.2, Urine Leukocyte Esterase 2+H, Urine RBC (Auto) 3+H, Urine RBC >100H, Urine WBC 25-50H, Urine Squamous Epithelial Cells NONE, Urine Crystals PRESENTH, Urine Amorphous Sediment MOD AMBAR URATESH, Urine Bacteria FEWH, Urine Casts PRESENT, Urine Granular Casts 5-10H, Urine Mucus NEGATIVE, Urine Yeast LARGEH, Urine Culture Indicated YES 07/28/22 11:22: Blood Gas Puncture Site LT RAD, Blood Gas Patient Temperature 38.0, Arterial Blood pH 7.41, Arterial Blood Partial Pressure CO2 34L, Arterial Blood Partial Pressure O2 42L, Arterial Blood HCO3 21L, Arterial Blood Total CO2 21.7, A rterial Blood Oxygen Saturation 68L, Arterial Blood Base Excess -3.0L, Derrick Test NA, Blood Gas Ventilator Setting NO, Blood Gas Inspired Oxygen 3 % 07/28/22 11:48: Blood Gas Puncture Site LT RAD, Blood Gas Patient Temperature 37.7, Arterial Blood pH 7.43, Arterial Blood Partial Pressure CO2 29L, Arterial Blood Partial Pressure O2 94H, Arterial Blood HCO3 19L, Arterial Blood Total CO2 19.8L, Arterial Blood Oxygen Saturation 99, Arterial Blood Base Excess -4.4L, Derrick Test YES-POS, Blood Gas Ventilator Setting NO, Blood Gas Inspired Oxygen 3 % 07/28/22 12:00: Glucometer 223H 07/28/22 12:45: Influenza Type A (RT-PCR) Not Detected, Influenza Type B (RT-PCR) Not Detected, SARS-CoV-2 RNA (RT-PCR) Not Detected 07/28/22 15:40: Glucometer 208H 07/28/22 21:02: Glucometer 291H 07/29/22 03:43: White Blood Count 13.6H, Red Blood Count 2.95L, Hemoglobin 7.4L, Hematocrit 25L, Mean Corpuscular Volume 83, Mean Corpuscular Hemoglobin 25, Mean Corpuscular Hemoglobin Concent 30L, Red Cell Distribution Width 17.8H, Platelet Count 447H, Mean Platelet Volume 10.6, Immature Granulocyte % (Auto) 4, Neutrophils (%) (Auto) 75, Lymphocytes (%) (Auto) 9L, Monocytes (%) (Auto) 12, Eosinophils (%) (Auto) 1, Basophils (%) (Auto) 1, Neutrophils # (Auto) 10.2H, Lymphocytes # (Auto) 1.2, Monocytes # (Auto) 1.6H, Eosinophils # (Auto) 0.1, Basophils # (Auto) 0.1, Immature Granulocyte # (Auto) 0.5H, Percent Immature Platelet Fraction 5.5, Sodium Level 140, Potassium Level 4.1, Chloride Level 111H, Carbon Dioxide Level 16L, Anion Gap 13, Blood Urea Nitrogen 16, Creatinine 1.54H, Estimat Glomerular Filtration Rate 46, BUN/Creatinine Ratio 10, Glucose Level 229H, Calcium Level 8.6, Corrected Calcium 9.5, Phosphorus Level 3.6, Magnesium Level 1.9, Total Bilirubin 0.8, Aspartate Amino Transf (AST/SGOT) 21, Alanine Aminotransferase (ALT/SGPT) 14, Alkaline Phosphatase 133, Total Protein 5.6L, Albumin 2.9L 07/29/22 10:56: Glucometer 167H 07/29/22 16:56: Glucometer 187H 07/29/22 20:04: Glucometer 180H 07/30/22 05:11: White Blood Count 12.3H, Red Blood Count 2.71L, Hemoglobin 6.9*L, Hematocrit 23L , Mean Corpuscular Volume 86, Mean Corpuscular Hemoglobin 25, Mean Corpuscular Hemoglobin Concent 30L, Red Cell Distribution Width 18.5H, Platelet Count 404H, Mean Platelet Volume 10.9, Immature Granulocyte % (Auto) 4, Neutrophils (%) (Auto) 77H, Lymphocytes (%) (Auto) 6L, Monocytes (%) (Auto) 12, Eosinophils (%) (Auto) 1, Basophils (%) (Auto) 1, Neutrophils # (Auto) 9.5H, Lymphocytes # (Auto) 0.7L, Monocytes # (Auto) 1.4H, Eosinophils # (Auto) 0.1, Basophils # (Auto) 0.1, Immature Granulocyte # (Auto) 0.5H, Neutrophils % (Manual) 87, Lymphocytes % (Manual) 3, Monocytes % (Manual) 7, Eosinophils % (Manual) 1, Band Neutrophils 1, Nucleated Red Blood Cells 1, Reactive Lymphocytes 1, Polychromasia SLIGHT, Hypochromasia SLIGHT, Anisocytosis SLIGHT, [place] Cells SLIGHT, Elliptocytes SLIGHT, Sodium Level 143, Potassium Level 4.2, Chloride Level 113H, Carbon Dioxide Level 15L, Anion Gap 15H, Blood Urea Nitrogen 20H, Creatinine 1.60H, Estimat Glomerular Filtration Rate 44, BUN/Creatinine Ratio 13, Glucose Level 274H, Calcium Level 8.6, Magnesium Level 1.8, Total Bilirubin 0.7, Direct Bilirubin 0.5H, Indirect Bilirubin 0.2, Aspartate Amino Transf (AST/SGOT) 25, Alanine Aminotransferase (ALT/SGPT) 14, Alkaline Phosphatase 121, Total Protein 5.2L, Albumin 2.7L 07/30/22 10:55: Glucometer 266H 07/30/22 19:53: Glucometer 392H Microbiology 07/28/22 Urine Culture - Final, Complete YEAST 07/28/22 Blood Culture - Preliminary, Resulted No growth Pending Labs Microbiology Date/Time Source Procedure Growth Status 07/28/22 11:15 Urine Not Otherwise Specified Urine Culture - Final YEAST Complete 07/28/22 11:10 Peripheral Lt Ac Blood Culture - Preliminary No growth Resulted 07/28/22 11:00 Peripheral Lt Ac Blood Culture - Preliminary Staphylococcus epidermidis Resulted Laboratory Tests 07/16/22 11:20: White Blood Count 11.7, Red Blood Count 3.90, Hemoglobin 10.1, Hematocrit 33, Mean Corpuscular Volume 84, Mean Corpuscular Hemoglobin 26, Mean Corpuscular Hemoglobin Concent 31, Red Cell Distribution Width 18.6, Platelet Count 233, Mean Platelet Volume 10.6, Immature Granulocyte % (Auto) 1, Neutrophils (%) (Auto) 83, Lymphocytes (%) (Auto) 4, Monocytes (%) (Auto) 11, Eosinophils (%) (Auto) 1, Basophils (%) (Auto) 1, Neutrophils # (Auto) 9.7, Lymphocytes # (Auto) 0.5, Monocytes # (Auto) 1.2, Eosinophils # (Auto) 0.1, Basophils # (Auto) 0.1, Immature Granulocyte # (Auto) 0.1, Neutrophils % (Manual) 85, Lymphocytes % (Manual) 4, Monocytes % (Manual) 8, Eosinophils % (Manual) 2, Basophils % (Manual) 1, Polychromasia SLIGHT, Anisocytosis MODERATE, Sodium Level 138, Potassium Level 4.7, Chloride Level 105, Carbon Dioxide Level 21, Anion Gap 12, Blood Urea Nitrogen 32, Creatinine 1.85, Estimat Glomerular Filtration Rate 37, BUN/Creatinine Ratio 17, Glucose Level 214, Calcium Level 8.8, Corrected Calcium 9.2, Total Bilirubin 0.6, Aspartate Amino Transf (AST/SGOT) 28, Alanine Aminotransferase (ALT/SGPT) 35, Alkaline Phosphatase 169, Troponin I < 0.028, B-Type Natriuretic Peptide 602.6, Total Protein 6.2, Albumin 3.5, Lipase 12, Serum Alcohol < 10 07/16/22 11:29: Glucometer 199 07/16/22 16:00: Glucometer 325 07/16/22 20:13: Glucometer 279 07/17/22 05:10: Glucometer 110 07/17/22 05:20: White Blood Count 11.5, Red Blood Count 3.68, Hemoglobin 9.4, Hematocrit 31, Mean Corpuscular Volume 83, Mean Corpuscular Hemoglobin 26, Mean Corpuscular Hemoglobin Concent 31, Red Cell Distribution Width 18.3, Platelet Count 223, Mean Platelet Volume 10.8, Immature Granulocyte % (Auto) 1, Neutrophils (%) ( Auto) 78, Lymphocytes (%) (Auto) 6, Monocytes (%) (Auto) 14, Eosinophils (%) (Auto) 1, Basophils (%) (Auto) 0, Neutrophils # (Auto) 9.0, Lymphocytes # (Auto) 0.7, Monocytes # (Auto) 1.6, Eosinophils # (Auto) 0.1, Basophils # (Auto) 0.1, Immature Granulocyte # (Auto) 0.1, Sodium Level 139, Potassium Level 4.4, Chloride Level 107, Carbon Dioxide Level 20, Anion Gap 12, Blood Urea Nitrogen 28, Creatinine 1.55, Estimat Glomerular Filtration Rate 46, BUN/Creatinine Ratio 18, Glucose Level 114, Calcium Level 8.9, Magnesium Level 1.7 07/17/22 09:16: Iron Level 20, Total Iron Binding Capacity 297, Unsaturated Iron Binding Capacity 277, Transferrin % Saturation 7, Ferritin 63.1 07/17/22 10:48: Glucometer 185 07/17/22 15:59: Glucometer 367 07/17/22 22:01: Glucometer 544 07/18/22 03:05: Glucometer 190 07/18/22 05:00: White Blood Count 9.2, Red Blood Count 3.54, Hemoglobin 9.1, Hematocrit 29, Mean Corpuscular Volume 82, Mean Corpuscular Hemoglobin 26, Mean Corpuscular Hemoglobin Concent 31, Red Cell Distribution Width 18.2, Platelet Count 242, Mean Platelet Volume 10.8, Immature Granulocyte % (Auto) 1, Neutrophils (%) (Auto) 81, Lymphocytes (%) (Auto) 7, Monocytes (%) (Auto) 11, Eosinophils (%) (Auto) 0, Basophils (%) (Auto) 0, Neutrophils # (Auto) 7.4, Lymphocytes # (Auto) 0.6, Monocytes # (Auto) 1.0, Eosinophils # (Auto) 0.0, Basophils # (Auto) 0.0, Immature Granulocyte # (Auto) 0.1, Sodium Level 137, Potassium Level 3.8, Chloride Level 104, Carbon Dioxide Level 21, Anion Gap 12, Blood Urea Nitrogen 31, Creatinine 1.61, Estimat Glomerular Filtration Rate 44, BUN/Creatinine Ratio 19, Glucose Level 166, Calcium Level 9.1, Magnesium Level 1.8 07/18/22 06:41: Glucometer 209 07/18/22 11:04: Glucometer 142 07/18/22 15:37: Glucometer 231 07/18/22 20:50: Glucometer 396 07/19/22 05:28: Glucometer 56 07/19/22 05:40: White Blood Count 9.4, Red Blood Count 3.37, Hemoglobin 8.6, Hematocrit 28, Mean Corpuscular Volume 82, Mean Corpuscular Hemoglobin 26, Mean Corpuscular Hemoglobin Concent 31, Red Cell Distribution Width 18.2, Platelet Count 252, Janell n Platelet Volume 10.8, Immature Granulocyte % (Auto) 1, Neutrophils (%) (Auto) 79, Lymphocytes (%) (Auto) 7, Monocytes (%) (Auto) 13, Eosinophils (%) (Auto) 1, Basophils (%) (Auto) 0, Neutrophils # (Auto) 7.3, Lymphocytes # (Auto) 0.6, Monocytes # (Auto) 1.2, Eosinophils # (Auto) 0.1, Basophils # (Auto) 0.0, Immature Granulocyte # (Auto) 0.1, Sodium Level 139, Potassium Level 3.6, Chloride Level 103, Carbon Dioxide Level 22, Anion Gap 14, Blood Urea Nitrogen 33, Creatinine 1.52, Estimat Glomerular Filtration Rate 47, BUN/Creatinine Ratio 22, Glucose Level 50, Calcium Level 8.9, Magnesium Level 1.7 07/19/22 06:35: Glucometer 77 07/19/22 08:22: Glucometer 83 07/19/22 12:08: Glucometer 125 07/19/22 16:20: Glucometer 250 07/19/22 20:21: Glucometer 289 07/20/22 05:40: Glucometer 106, White Blood Count 8.2, Red Blood Count 3.35, Hemoglobin 8.6, Hematocrit 27, Mean Corpuscular Volume 82, Mean Corpuscular Hemoglobin 26, Mean Corpuscular Hemoglobin Concent 31, Red Cell Distribution Width 18.0, Platelet Count 250, Mean Platelet Volume 10.3, Immature Granulocyte % (Auto) 1, Neutrophils (%) (Auto) 77, Lymphocytes (%) (Auto) 7, Monocytes (%) (Auto) 14, Eosinophils (%) (Auto) 1, Basophils (%) (Auto) 0, Neutrophils # (Auto) 6.3, Lymphocytes # (Auto) 0.6, Monocytes # (Auto) 1.1, Eosinophils # (Auto) 0.1, Basophils # (Auto) 0.0, Immature Granulocyte # (Auto) 0.1, Sodium Level 135, Potassium Level 4.0, Chloride Level 100, Carbon Dioxide Level 23, Anion Gap 12, Blood Urea Nitrogen 33, Creatinine 1.82, Estimat Glomerular Filtration Rate 38, BUN/Creatinine Ratio 18, Glucose Level 101, Calcium Level 8.7, Magnesium Level 2.1 07/20/22 11:00: Glucometer 132 07/20/22 16:00: Glucometer 166, Urine Color YELLOW, Urine Clarity CLEAR, Urine pH 5.5, Urine Spe cific [place] 1.025, Urine Protein 1+, Urine Glucose (UA) 2+, Urine Ketones NEGATIVE, Urine Nitrite NEGATIVE, Urine Bilirubin NEGATIVE, Urine Urobilinogen 0.2, Urine Leukocyte Esterase NEGATIVE, Urine RBC (Auto) TRACE-I, Urine RBC NONE, Urine WBC RARE, Urine Crystals PRESENT, Urine Amorphous Sediment FEW AMBAR URATES, Urine Bacteria FEW, Urine Casts NONE, Urine Mucus NEGATIVE, Urine Culture Indicated NO 07/20/22 20:49: Glucometer 316 07/21/22 05:38: White Blood Count 9.8, Red Blood Count 3.63, Hemoglobin 9.2, Hematocrit 30, Mean Corpuscular Volume 81, Mean Corpuscular Hemoglobin 25, Mean Corpuscular Hemoglobin Concent 31, Red Cell Distribution Width 17.7, Platelet Count 293, Mean Platelet Volume 10.4, Immature Granulocyte % (Auto) 1, Neutrophils (%) (Auto) 79, Lymphocytes (%) (Auto) 6, Monocytes (%) (Auto) 13, Eosinophils (%) (Auto) 1, Basophils (%) (Auto) 0, Neutrophils # (Auto) 7.8, Lymphocytes # (Auto) 0.6, Monocytes # (Auto) 1.3, Eosinophils # (Auto) 0.1, Basophils # (Auto) 0.0, Immature Granulocyte # (Auto) 0.1, Sodium Level 138, Potassium Level 4.2, Chloride Level 102, Carbon Dioxide Level 25, Anion Gap 11, Blood Urea Nitrogen 31, Creatinine 1.65, Estimat Glomerular Filtration Rate 43, BUN/Creatinine Ratio 19, Glucose Level 136, Calcium Level 8.7, Magnesium Level 1.9 07/21/22 05:46: Glucometer 131 07/21/22 11:18: Glucometer 98 07/21/22 15:55: Glucometer 142 07/21/22 20:23: Glucometer 228 07/22/22 05:38: White Blood Count 10.2, Red Blood Count 3.48, Hemoglobin 8.9, Hematocrit 29, Mean Corpuscular Volume 83, Mean Corpuscular Hemoglobin 26, Mean Corpuscular Hemoglobin Concent 31, Red Cell Distribution Width 18.0, Platelet Count 307, Mean Platelet Volume 10.3, Immature Granulocyte % (Auto) 1, Neutrophils (%) (Auto) 77, Lymphocytes (%) (Auto) 7, Monocytes (%) (Auto) 13, Eosinophils (%) (Auto) 1, Basophils (%) (Auto) 0, Neutrophils # (Auto) 7.8, Lymphocytes # (Auto) 0.7, Monocytes # (Auto) 1.4, Eosinophils # (Auto) 0.1, Basophils # (Auto) 0.0, Immature Granulocyte # (Auto) 0.1, Neutrophils % (Manual) 83, Lymphocytes % (Manual) 10, Monocytes % (Manual) 7, Platelet Estimate ADEQUATE, Anisocytosis SLIGHT, Sodium Level 140, Potassium Level 3.9, Chloride Level 103, Carbon Dioxide Level 25, Anion Gap 12, Blood Urea Nitrogen 29, Creatinine 1.46, Estimat Glomerular Filtration Rate 50, BUN/Creatinine Ratio 20, Glucose Level 158, Calcium Level 8.9, Magnesium Level 2.0 07/22/22 11:13: Glucometer 167 07/22/22 15:36: Glucometer 239 07/22/22 20:39: Glucometer 275 07/23/22 05:19: Glucometer 122 07/23/22 05:27: White Blood Count 11.2, Red Blood Count 3.20, Hemoglobin 8.1, Hematocrit 27, Mean Corpuscular Volume 83, Mean Corpuscular Hemoglobin 25, Mean Corpuscular Hemoglobin Concent 30, Red Cell Distribution Width 18.0, Platelet Count 332, Mean Platelet Volume 10.5, Immature Granulocyte % (Auto) 1, Neutrophils (%) (Auto) 75, Lymphocytes (%) (Auto) 7, Monocytes (%) (Auto) 15, Eosinophils (%) (Auto) 1, Basophils (%) (Auto) 0, Neutrophils # (Auto) 8.4, Lymphocytes # (Auto) 0.8, Monocytes # (Auto) 1.7, Eosinophils # (Auto) 0.1, Basophils # (Auto) 0.0, Immature Granulocyte # (Auto) 0.1, Sodium Level 143, Potassium Level 3.7, Chloride Level 107, Carbon Dioxide Level 26, Anion Gap 10, Blood Urea Nitrogen 29, Creatinine 1.49, Estimat Glomerular Filtration Rate 48, BUN/Creatinine Ratio 19, Glucose Level 114, Calcium Level 8.7, Magnesium Level 1.9 07/23/22 11:14: Glucometer 114 07/23/22 15:23: Glucometer 116 07/23/22 20:17: Glucometer 280 07/24/22 04:16: Sodium Level 141, Potassium Level 4.2, Chloride Level 109, Carbon Dioxide Level 21, Anion Gap 11, Blood Urea Nitrogen 36, Creatinine 1.67, Estimat Glomerular Filtration Rate 42, BUN/Creatinine Ratio 22, Glucose Level 206, Calcium Level 8.5, Magnesium Level 2.2 07/24/22 04:21: White Blood Count 9.3, Red Blood Count 3.13, Hemoglobin 8.0, Hematocrit 26, Mean Corpuscular Volume 83, Mean Corpuscular Hemoglobin 26, Mean Corpuscular Hemoglobin Concent 31, Red Cell Distribution Width 18.0, Platelet Count 331, Mean Platelet Volume 11.0, Immature Granulocyte % (Auto) 1, Neutrophils (%) (Auto) 75, Lymphocytes (%) (Auto) 9, Monocytes (%) (Auto) 14, Eosinophils (%) (Auto) 2, Basophils (%) (Auto) 0, Neutrophils # (Auto) 6.9, Lymphocytes # (Auto) 0.8, Monocytes # (Auto) 1.3, Eosinophils # (Auto) 0.2, Basophils # (Auto) 0.0, Immature Granulocyte # (Auto) 0.1 07/24/22 05:24: Glucometer 183 07/24/22 09:27: Blood Gas Puncture Site RIGHT RADIAL, Blood Gas Patient Temperature 37.1, Arterial Blood pH 7.47, Arterial Blood Partial Pressure CO2 34, Arterial Blood Partial Pressure O2 65, Arterial Blood HCO3 25, Arterial Blood Total CO2 25.8, Arterial Blood Oxygen Saturation 91, Arterial Blood Base Excess 1.4, Derrick Test POSITIVE, Blood Gas Ventilator Setting NO, Blood Gas Inspired Oxygen 3% 07/24/22 10:47: Glucometer 109 07/24/22 15:45: Glucometer 125 07/24/22 20:38: Glucometer 234 07/25/22 03:43: White Blood Count 11.0, Red Blood Count 3.04, Hemoglobin 7.7, Hematocrit 26, Mean Corpuscular Volume 84, Mean Corpuscular Hemoglobin 25, Mean Corpuscular Hemoglobin Concent 30, Red Cell Distribution Width 17.7, Platelet Count 324, Mean Platelet Volume 10.5, Immature Granulocyte % (Auto) 1, Neutrophils (%) (Auto) 79, Lymphocytes (%) (Auto) 6, Monocytes (%) (Auto) 12, Eosinophils (%) (Auto) 1, Basophils (%) (Auto) 0, Neutrophils # (Auto) 8.7, Lymphocytes # (Auto) 0.7, Monocytes # (Auto) 1.4, Eosinophils # (Auto) 0.1, Basophils # (Auto) 0.0, Immature Granulocyte # (Auto) 0.1, Sodium Level 142, Potassium Level 3.8, Chloride Level 111, Carbon Dioxide Level 20, Anion Gap 11, Blood Urea Nitrogen 28, Creatinine 1.45, Estimat Glomerular Filtration Rate 50, BUN/Creatinine Ratio 19, Glucose Level 153, Calcium Level 8.3, Magnesium Level 1.9, Thyroid Stimulating Hormone (TSH) 1.36, Lyme Disease Screen IgG & IgM Ab 0.02, Lyme Antibody Interpretation Negative, Ehrlichia chaffeensis IgG Antibody <1:16, Ehrlichia chaffeensis IgM Antibody <1:10, Spotted Fever Group IgG Antibody <1:16, Spotted Fever Group IgM Antibody <1:10, [place] Antibody <1:20 07/25/22 10:08: Glucometer 95 07/25/22 16:49: Glucometer 162 07/25/22 20:52: Glucometer 168 07/26/22 03:59: White Blood Count 13.5, Red Blood Count 2.98, Hemoglobin 7.5, Hematocrit 25, Mean Corpuscular Volume 84, Mean Corpuscular Hemoglobin 25, Mean Corpuscular Hemoglobin Concent 30, Red Cell Distribution Width 18.0, Platelet Count 334, Mean Platelet Volume 10.7, Immature Granulocyte % (Auto) 1, Neutrophils (%) (Auto) 82, Lymphocytes (%) (Auto) 5, Monocytes (%) (Auto) 12, Eosinophils (%) (Auto) 1, Basophils (%) (Auto) 0, Neutrophils # (Auto) 11.0, Lymphocytes # (Auto) 0.7, Monocytes # (Auto) 1.6, Eosinophils # (Auto) 0.1, Basophils # (Auto) 0.0, Immature Granulocyte # (Auto) 0.1, Sodium Level 141, Potassium Level 3.9, Chloride Level 112, Carbon Dioxide Level 19, Anion Gap 10, Blood Urea Nitrogen 21, Creatinine 1.30, Estimat Glomerular Filtration Rate 57, BUN/Creatinine Ratio 16, Glucose Level 190, Calcium Level 8.3, Magnesium Level 2.1, Vitamin B12 Level 441, Folate 8.8 07/26/22 05:36: Glucometer 182 07/26/22 10:44: Glucometer 135 07/26/22 15:16: Glucometer 118 07/26/22 17:33: Glucometer 134 07/27/22 03:28: White Blood Count 14.0, Red Blood Count 2.86, Hemoglobin 7.2, Hematocrit 24, Mean Corpuscular Volume 84, Mean Corpuscular Hemoglobin 25, Mean Corpuscular Hemoglobin Concent 30, Red Cell Distribution Width 18.2, Platelet Count 356, Mean Platelet Volume 11.1, Immature Granulocyte % (Auto) 1, Neutrophils (%) (Auto) 84, Lymphocytes (%) (Auto) 5, Monocytes (%) (Auto) 9, Eosinophils (%) (Auto) 1, Basophils (%) (Auto) 0, Neutrophils # (Auto) 11.7, Lymphocytes # (Auto) 0.7, Monocytes # (Auto) 1.3, Eosinophils # (Auto) 0.1, Basophils # (Auto) 0.0, Immature Granulocyte # (Auto) 0.2, Sodium Level 142, Potassium Level 3.8, Chloride Level 115, Carbon Dioxide Level 19, Anion Gap 8, Blood Urea Nitrogen 19, Creatinine 1.25, Estimat Glomerular Filtration Rate 60, BUN/Creatinine Ratio 15, Glucose Level 85, Calcium Level 8.0, Magnesium Level 1.6 07/27/22 10:32: Glucometer 58 07/27/22 10:39: Glucometer 64 07/27/22 11:45: Glucometer 109 07/27/22 16:02: Glucometer 160 07/27/22 21:05: Glucometer 285 07/28/22 05:56: Glucometer 255 07/28/22 08:37: White Blood Count 14.1, Red Blood Count 2.86, Hemoglobin 7.1, Hematocrit 23, Mean Corpuscular Volume 82, Mean Corpuscular Hemoglobin 25, Mean Corpuscular Hemoglobin Concent 31, Red Cell Distribution Width 17.9, Platelet Count 415, Mean Platelet Volume 10.8, Sodium Level 138, Potassium Level 3.9, Chloride Level 111, Carbon Dioxide Level 19, Anion Gap 8, Blood Urea Nitrogen 16, Creatinine 1.54, Estimat Glomerular Filtration Rate 46, BUN/Creatinine Ratio 10, Glucose Level 204, Calcium Level 8.0, B-Type Natriuretic Peptide 3686.2 07/28/22 11:00: Lactic Acid Level 1.08 07/28/22 11:10: Total Bilirubin 0.7, Direct Bilirubin 0.4, Indirect Bilirubin 0.3, Aspartate Amino Transf (AST/SGOT) 23, Alanine Aminotransferase (ALT/SGPT) 18, Alkaline Phosphatase 131, Ammonia 17, Total Creatine Kinase 111, Total Protein 5.1, Albumin 2.5, Procalcitonin 0.61 07/28/22 11:15: Urine Color YELLOW, Urine Clarity CLOUDY, Urine pH 5.5, Urine Specific Hudson 1.025, Urine Protein 2+, Urine Glucose (UA) 3+, Urine Ketones NEGATIVE, Urine Nitrite NEGATIVE, Urine Bilirubin NEGATIVE, Urine Urobilinogen 0.2, Urine Leukocyte Esterase 2+, Urine RBC (Auto) 3+, Urine RBC >100, Urine WBC 25-50, Urine Squamous Epithelial Cells NONE, Urine Crystals PRESENT, Urine Amorphous Sediment MOD AMBAR URATES, Urine Bacteria FEW, Urine Casts PRESENT, Urine Granular Casts 5-10, Urine Mucus NEGATIVE, Urine Yeast LARGE, Urine Culture Indicated YES 07/28/22 11:22: Blood Gas Puncture Site LT RAD, Blood Gas Patient Temperature 38.0, Arterial Blood pH 7.41, Arterial Blood Partial Pressure CO2 34, Arterial Blood Partial Pressure O2 42, Arterial Blood HCO3 21, Arterial Blood Total CO2 21.7, Arterial Blood Oxygen Saturation 68, Arterial Blood Base Excess -3.0, Derrick Test NA, Blood Gas Ventilator Setting NO, Blood Gas Inspired Oxygen 3 % 07/28/22 11:48: Blood Gas Puncture Site LT RAD, Blood Gas Patient Temperature 37.7, Arterial Blood pH 7.43, Arterial Blood Partial Pressure CO2 29, Arterial Blood Partial Pressure O2 94, Arterial Blood HCO3 19, Arterial Blood Total CO2 19.8, Arterial Blood Oxygen Saturation 99, Arterial Blood Base Excess -4.4, Derrick Test YES-POS, Blood Gas Ventilator Setting NO, Blood Gas Inspired Oxygen 3 % 07/28/22 12:00: Glucometer 223 07/28/22 12:45: Influenza Type A (RT-PCR) Not Detected, Influenza Type B (RT-PCR) Not Detected, SARS-CoV-2 RNA (RT-PCR) Not Detected 07/28/22 15:40: Glucometer 208 07/28/22 21:02: Glucometer 291 07/29/22 03:43: White Blood Count 13.6, Red Blood Count 2.95, Hemoglobin 7.4, Hematocrit 25, Mean Corpuscular Volume 83, Mean Corpuscular Hemoglobin 25, Mean Corpuscular Hemoglobin Concent 30, Red Cell Distribution Width 17.8, Platelet Count 447, Mean Platelet Volume 10.6, Immature Granulocyte % (Auto) 4, Neutrophils (%) (Auto) 75, Lymphocytes (%) (Auto) 9, Monocytes (%) (Auto) 12, Eosinophils (%) (Auto) 1, Basophils (%) (Auto) 1, Neutrophils # (Auto) 10.2, Lymphocytes # (Auto) 1.2, Monocytes # (Auto) 1.6, Eosinophils # (Auto) 0.1, Basophils # (Auto) 0.1, Immature Granulocyte # (Auto) 0.5, Percent Immature Platelet Fraction 5.5, Sodium Level 140, Potassium Level 4.1, Chloride Level 111, Carbon Dioxide Level 16, Anion Gap 13, Blood Urea Nitrogen 16, Creatinine 1.54, Estimat Glomerular Filtration Rate 46, BUN/Creatinine Ratio 10, Glucose Level 229, Calcium Level 8.6, Corrected Calcium 9.5, Phosphorus Level 3.6, Magnesium Level 1.9, Total Bilirubin 0.8, Aspartate Amino Transf (AST/SGOT) 21, Alanine Aminotransferase (ALT/SGPT) 14, Alkaline Phosphatase 133, Total Protein 5.6, Albumin 2.9 07/29/22 10:56: Glucometer 167 07/29/22 16:56: Glucometer 187 07/29/22 20:04: Glucometer 180 07/30/22 05:11: White Blood Count 12.3, Red Blood Count 2.71, Hemoglobin 6.9, Hematocrit 23, Mean Corpuscular Volume 86, Mean Corpuscular Hemoglobin 25, Mean Corpuscular Hemoglobin Concent 30, Red Cell Distribution Width 18.5, Platelet Count 404, Mean Platelet Volume 10.9, Immature Granulocyte % (Auto) 4, Neutrophils (%) (Auto) 77, Lymphocytes (%) (Auto) 6, Monocytes (%) (Auto) 12, Eosinophils (%) (Auto) 1, Basophils (%) (Auto) 1, Neutrophils # (Auto) 9.5, Lymphocytes # (Auto) 0.7, Monocytes # (Auto) 1.4, Eosinophils # (Auto) 0.1, Basophils # (Auto) 0.1, Immature Granulocyte # (Auto) 0.5, Neutrophils % (Manual) 87, Lymphocytes % (Manual) 3, Monocytes % (Manual) 7, Eosinophils % (Manual) 1, Band Neutrophils 1, Nucleated Red Blood Cells 1, Reactive Lymphocytes 1, Polychromasia SLIGHT, Hypochromasia SLIGHT, Anisocytosis SLIGHT, Judith Cells SLIGHT, Elliptocytes SLIGHT, Sodium Level 143, Potassium Level 4.2, Chloride Level 113, Carbon Dioxide Level 15, Anion Gap 15, Blood Urea Nitrogen 20, Creatinine 1.60, Estimat Glomerular Filtration Rate 44, BUN/Creatinine Ratio 13, Glucose Level 274, Calcium Level 8.6, Magnesium Level 1.8, Total Bilirubin 0.7, Direct Bilirubin 0.5, Indirect Bilirubin 0.2, Aspartate Amino Transf (AST/SGOT) 25, Alanine Aminotransferase (ALT/SGPT) 14, Alkaline Phosphatase 121, Total Protein 5.2, Albumin 2.7 07/30/22 10:55: Glucometer 266 07/30/22 19:53: Glucometer 392 Discharge Home Medications: Active Scripts Active Reported Clopidogrel (Clopidogrel Bisulfate) 75 Mg Tablet 75 Mg PO DAILY Atorvastatin Calcium 20 Mg Tablet 20 Mg PO HS Xarelto (Rivaroxaban) 20 Mg Tablet 20 Mg PO 1800 Vitamin D2 (Ergocalciferol (Vitamin D2)) 1,250 Mcg (54153 Unit) Capsule 1,250 Mcg PO WEDNESDAY Entresto 24 mg-26 mg Tablet (Sacubitril/Valsartan) 24 Mg-26 Mg Tablet 1 Tab PO BID Amiodarone HCl 200 Mg Tablet 200 Mg PO DAILY Fiasp 100 Unit/ml Vial (Insulin Aspart (Niacinamide)) 100 Unit/Ml Vial Unit SQ AC USES PER SLIDING SCALE Prednisone 5 Mg Tablet 5 Mg PO DAILY Metoprolol Succinate 25 Mg Tab.er.24h 25 Mg PO DAILY Hydrochlorothiazide 25 Mg Tablet 25 Mg PO DAILY Instructions to patient/family Please see electronic discharge instructions given to patient. GAVIOTA HASSAN DO Jul 30, 2022 21:18
--- NOTE | 2022-07-31 09:30 | Physician Query Clarification ---
PQ-CHF Specificity Admission Date: Jul 16, 2022 at 14:21 Discharge Date: Jul 30, 2022 at 21:13 Dr. Tolbert, The medical record reflects the following clinical scenario: History/Risk Factors: pelvic, rib fx's, acute on chronic CHF, Sepsis, acute hypoxic respiratory failure, pneumonia, UTI Clinical Findings: BNP 07/16 602.6, 07/28 3686.2 Treatment: 40 mg Lasix IVP Question: Can you further specify the acuity &/or type of CHF per the clinical indicators above? Please document a response in the Progress Notes or Discharge Summary. 1. Acuity: Acute, Chronic or Acute on Chronic 2. Type: Systolic, Diastolic or Systolic & Diastolic 3. Unspecified: CHF cannot be further specified regarding type or acuity 4. Other, with explanation of clinical findings 5. Clinically undetermined, no explanation for clinical findings PHYSICIAN RESPONSE Acuity: Acute Type: Diastolic In responding to this query, please exercise your independent professional judgment. The purpose of this communication is to more accurately reflect the complexity of your patients condition. The fact that a question is asked does not imply that any particular answer is desired or expected. Thank you for your timely response to this clarification. Requestors name: Lisa THIS PHYSICIAN QUERY FORM IS A PERMANENT PART OF THE MEDICAL RECORD LISA GIL Jul 31, 2022 09:30 GAVIOTA TOLBERT DO Jul 31, 2022 17:07
[2022-08-02] MEDS ORDERED: SCOPOLAMINE PATCH REMOVAL TP SCH (11:59)
== END 2022-07-30 21:13 | disposition expired | DRG 535 ==
LOC: EDUNIT# 11:00 → ER 11:02 → 4TH 14:21 → ICU 07-23 11:47 → 4TH 07-29 16:29
PROVIDERS: ADMIT Internal Medicine; ATTEND Internal Medicine
DX: S32.591A Other specified fracture of right pubis, initial encounter for closed fracture (principal); A41.9 Sepsis, unspecified organism; J96.01 Acute respiratory failure with hypoxia; J18.9 Pneumonia, unspecified organism; G93.41 Metabolic encephalopathy; S32.601A Unspecified fracture of right ischium, initial encounter for closed fracture; S22.41XA Multiple fractures of ribs, right side, initial encounter for closed fracture; N39.0 Urinary tract infection, site not specified; F10.131 Alcohol abuse with withdrawal delirium; N17.9 Acute kidney failure, unspecified; I13.0 Hypertensive heart and chronic kidney disease with heart failure and stage 1 through stage 4 chronic kidney disease, or unspecified chronic kidney disease; Z66 Do not resuscitate; Z51.5 Encounter for palliative care; S50.311A Abrasion of right elbow, initial encounter; S60.511A Abrasion of right hand, initial encounter; S90.511A Abrasion, right ankle, initial encounter; S40.021A Contusion of right upper arm, initial encounter; Y90.0 Blood alcohol level of less than 20 mg/100 ml; E11.22 Type 2 diabetes mellitus with diabetic chronic kidney disease; E11.65 Type 2 diabetes mellitus with hyperglycemia; N18.9 Chronic kidney disease, unspecified; I50.9 Heart failure, unspecified; Z79.4 Long term (current) use of insulin; E11.40 Type 2 diabetes mellitus with diabetic neuropathy, unspecified; D50.9 Iron deficiency anemia, unspecified; I73.9 Peripheral vascular disease, unspecified; I95.9 Hypotension, unspecified; E88.09 Other disorders of plasma-protein metabolism, not elsewhere classified; I48.0 Paroxysmal atrial fibrillation; I25.10 Atherosclerotic heart disease of native coronary artery without angina pectoris; I34.0 Nonrheumatic mitral (valve) insufficiency; N40.0 Benign prostatic hyperplasia without lower urinary tract symptoms; K21.9 Gastro-esophageal reflux disease without esophagitis; M06.9 Rheumatoid arthritis, unspecified; M19.90 Unspecified osteoarthritis, unspecified site; K59.09 Other constipation; E78.00 Pure hypercholesterolemia, unspecified; Z85.72 Personal history of non-Hodgkin lymphomas; Z79.01 Long term (current) use of anticoagulants; Z79.899 Other long term (current) drug therapy; Z79.52 Long term (current) use of systemic steroids; Z88.5 Allergy status to narcotic agent; Z88.8 Allergy status to other drugs, medicaments and biological substances; W10.8XXA Fall (on) (from) other stairs and steps, initial encounter; Y92.008 Other place in unspecified non-institutional (private) residence as the place of occurrence of the external cause
CPT/HCPCS: 36415; 36600; 70450; 71045; 71260; 72125; 72128; 72131; 73030; 73060; 73080; 73090; 73110; 73502; 73562; 74177; 80048; 80053; 80076; 80320; 81000; 82140; 82550; 82607; 82728; 82746; 82805; 82947; 83540; 83550; 83605; 83690; 83735; 83880; 84100; 84145; 84443; 84484; 85007; 85025; 85027; 86618; 86666; 86668; 86757; 87040; 87088; 87636; 93005; 94640; 94664; 94760; 96374